=== PATIENT | female | born 1965 | race Caucasian/White ===

== ENCOUNTER → 2017-01-07 | Outpatient (CLI) | payer OTHER ==
[~2017-01-07] MED LIST: ALBU0.632 IH; ALBU17AE3 PO; ALBU2.5V4 IH; APIX5TAB PO; BECL8.7A7 IH; BUDE10.22 IH; CETI10CA PO; CPR500T PO; DILT180C67 PO; DILT180C84 PO; DPAS20025 PO; EPIN0.3P3 IM; FLT05NA16 NSEACH; FLUO20CA42 PO; FLUT12AE4 PO; FLUT1DIS27 IH; HCT25T PO; IPR14IN IH; LOSA25TA21 PO; METH5TAB5 PO; METO-272 PO; METR500T PO; MNTL10T PO; OLME20TA5 PO; ONDA-42 PO; RT-ALBUINH IH; TIOT18CA IH
--- NOTE | 2017-01-07 15:38 | Diagnostic Imaging Report ---
PA and lateral views of the chest. INDICATION: Cough. FINDINGS: The lungs appear clear. The heart size is normal. No effusion or pneumothorax. The mediastinum and christiano appear unremarkable. IMPRESSION: Unremarkable exam. Dictated by: Dictated on workstation # [id number]
== END ==
LOC: RAD 15:07
PROVIDERS: ATTEND Nurse Practitioner Family
DX: R05 Cough (principal)
CPT/HCPCS: 71020

== ENCOUNTER → 2017-01-13 | Outpatient (CLI) | payer OTHER | LOC: RAD 11:59 | PROVIDERS: ATTEND Internal Medicine Cardiovascular Disease | DX: I48.0 Paroxysmal atrial fibrillation (principal); I73.9 Peripheral vascular disease, unspecified; M79.89 Other specified soft tissue disorders | CPT/HCPCS: 93923 ==

== ENCOUNTER → 2017-03-09 | Outpatient (CLI) | payer OTHER ==
--- NOTE | 2017-03-09 13:51 | Diagnostic Imaging Report ---
PROCEDURE: US Thyroid. TECHNIQUE: Multiple real-time grayscale images were obtained of the thyroid in various projections. INDICATION: Thyroid nodules. COMPARISON: 02/13/2016. FINDINGS: Right thyroid lobe 5.5 x 3.1 x 3.6 cm, not substantially changed. The right lobe is diffusely heterogeneous with a discrete mass measuring 3.3 cm x 2.5 cm that is midpole laterally, unchanged. The left lobe is enlarged and heterogeneous measuring 6.4 x 3.3 x 3.2 cm and is not significantly changed. It is diffusely heterogeneous with a dominant solid mass heterogeneous in its lower pole, measuring 2.7 x 2.5 cm also not significantly changed. IMPRESSION: Dominant bilateral thyroid masses unchanged from prior and diffuse heterogeneous thyromegaly also sonographically unchanged. Dictated by: Dictated on workstation # [id number]
== END ==
LOC: RAD 10:15
PROVIDERS: ATTEND Nurse Practitioner Family
DX: E07.9 Disorder of thyroid, unspecified (principal); E01.0 Iodine-deficiency related diffuse (endemic) goiter
CPT/HCPCS: 76536

== ENCOUNTER → 2017-06-23 | Outpatient (CLI) | payer OTHER | LOC: RAD 15:53 | PROVIDERS: ATTEND Nurse Practitioner Family | DX: J32.9 Chronic sinusitis, unspecified (principal); J33.9 Nasal polyp, unspecified | CPT/HCPCS: 70486 ==

== ENCOUNTER → 2017-10-29 | Outpatient (CLI) | payer BC ==
[~2017-10-29] MED LIST changes: -METO-272 PO; +METO-370 PO
[2017-10-29 11:03] LABS: BASOPHILS % (AUTO) 0 % (0-10); EOSINOPHILS # (AUTO) 0.2 10^3/uL (0.0-0.3); EOSINOPHILS % (AUTO) 1 % (0-10); HEMATOCRIT 45 % (35-52); LYMPHOCYTES # (AUTO) 1.5 X 10^3 (1.0-4.0); LYMPHOCYTES % (AUTO) 11 % (12-44); MEAN CORPUSCULAR HEMOGLOBIN 27 PG (25-34); MEAN CORPUSCULAR HGB CONC 34 G/DL (32-36); MEAN CORPUSCULAR VOLUME 82 FL (80-99); MONOCYTES # (AUTO) 0.7 X 10^3 (0.0-1.0); MONOCYTES % (AUTO) 5 % (0-12); NEUTROPHILS # (AUTO) 11.7 X 10^3 (1.8-7.8); NEUTROPHILS % (AUTO) 83 % (42-75); PLATELET COUNT 264 10^3/uL (130-400); RED BLOOD COUNT 5.47 10^6/uL (4.35-5.85); WHITE BLOOD COUNT 14.1 10^3/uL (4.3-11.0)
[2017-10-29 11:23] LABS: BAND NEUTROPHILS 1 %; BASOPHILS % (MANUAL) 1 %; EOSINOPHILS % (MANUAL) 0 %; LYMPHOCYTES % (MANUAL) 10 %; MONOCYTES % (MANUAL) 2 %; NEUTROPHILS % (MANUAL) 86 %; RBC MORPH NORMAL
--- NOTE | 2017-10-29 12:26 | Diagnostic Imaging Report ---
INDICATION: Asthma, cough. COMPARISON: 07/26/2017 FINDINGS: Frontal and lateral views of the chest demonstrate clear lungs bilaterally. The heart is normal. There is no pneumothorax. No hyperinflation. Osseous structures are age-appropriate. IMPRESSION: Negative chest. Dictated by: Dictated on workstation # [id number]
== END ==
LOC: LAB 10:46
PROVIDERS: ATTEND Nurse Practitioner Family
DX: J45.909 Unspecified asthma, uncomplicated (principal); R06.00 Dyspnea, unspecified; R09.02 Hypoxemia
CPT/HCPCS: 36415; 71046; 82785; 85007; 85027

== ENCOUNTER 2018-02-15 13:38 | Emergency (ER) | payer BC ==
[~2018-02-15] VITALS: Ht 172.7 cm; Wt 90.7 kg
--- OUTSIDE RECORDS SUMMARY | 2018-02-15 13:44 | XMS REPORT | Encounter Summary ---
Author Author [facility] Organization [facility] Address Unknown Phone Unavailable Care Team Providers Care Associate Software Application Engineer Name Role Phone Gopi Julian MD Unavailable Unavailable Artie Vela MD Unavailable Raysa Horton MD Unavailable London Bullard NP PCP Reason for Visit * Radiology Services Status Reason Specialty Diagnoses / Referred By Referred To Procedures Contact Contact No Auth Needed Radiology Diagnoses Dannie, [facility] Hyperthyroidism MD Renetta [address] [place], [place] THYROID [place] [address] [id number] [address] [place], [place] Phone: [phone] Phone: Encounter Details Date Type Department Care Team Description 02/02/2018 Hospital [facility] Renetta Pandey MD Encounter Hospital Radiology [address] [place] [address] [place], [place] [id number] Social History Tobacco Use Types Packs/Day Years Used Date Former Smoker Cigarettes 0.4 1 09/21/2008 - 10/10/2009 Smokeless Tobacco: Never Used Comments: smoked on/off for 2 years between ages [age]. Alcohol Use Drinks/Week oz/Week Comments Yes 1 Standard 0.5 socially drinks or equivalent Sex Assigned at Date Recorded Not on file as of this encounter Medications at Time of Discharge Medication Sig. Disp. Refills Start Date End Date albuterol (VENTOLIN HFA, Inhale 2 Puffs by mouth 1 Inhaler 2 2013 PROAIR HFA) 90 every 6 hours as needed. mcg/actuation inhaler Need appt for additional refills apixaban (ELIQUIS) 5 mg Take 5 mg by mouth twice tablet daily. beclomethasone(+) (QVAR) Inhale 1 Puff by mouth 1 Inhaler 11 2013 40 mcg/actuation aero twice daily. inhalerIndications: Severe persistent asthma cetirizine (ZYRTEC) 10 mg Take 10 mg by mouth tablet daily. diltiazem CD (CARTIA XT) Take 180 mg by mouth 180 mg capsule daily. epinephrine(+) (EPIPEN) 1 Inject 0.3 mg to area(s) mg/mL injection pen as directed once as needed. fluoxetine (PROZAC) 20 mg Take 20 mg by mouth capsule daily. fluticasone (FLONASE) 50 Apply 2 Sprays to each mcg/actuation nasal spray nostril as directed daily. fluticasone-salmeterol Inhale 1 Puff by mouth 3 Inhaler 3 02/08/2013 (ADVAIR DISKUS) 500-50 every 12 hours. mcg inhalation diskIndications: Asthma ipratropium bromide Inhale 2 puffs by mouth (ATROVENT HFA) 17 into the lungs every 12 mcg/actuation inhaler hours. meloxicam (MOBIC) 7.5 mg Take 7.5 mg by mouth tablet daily. metoprolol XL (TOPROL XL) Take 100 mg by mouth 100 mg extended release daily. tablet montelukast (SINGULAIR) Take 1 Tab by mouth at 90 Tab 3 06/06/2015 10 mg tabletIndications: bedtime daily. Severe persistent asthma, with acute exacerbation, Asthma exacerbation other medication 1 Dose. Medication Name & Strength: Prevage Dose(how many): 1 tab Frequency(how often): daily as of this encounter Plan of Treatment Not on fileas of this encounter Visit Diagnoses Not on filein this encounter Administered Medications Medication Order MAR Action Action Date Dose Rate Site RP DX Tc-99m pertechnetate injection 10 Given 02/02/2018 9.7 millicurie 10:19 CDT millicuries 10 millicurie, Intravenous, ONCE, 1 dose, 02/02/18 at 1030 in this encounter
--- OUTSIDE RECORDS SUMMARY | 2018-02-15 13:44 | XMS REPORT | Encounter Summary ---
Author Author [facility] Organization [facility] Address Unknown Phone Unavailable Care Team Providers Care Director Pediatric Name Role Phone Gopi Julian MD Unavailable Unavailable Artie Vela MD Unavailable Raysa Horton MD Unavailable London Bullard NP PCP Reason for Referral * Radiology Services Status Reason Specialty Diagnoses / Referred By Referred To Procedures Contact Contact No Auth Needed Radiology Diagnoses Dannie, 2 Nuclear Med Hyperthyroidism MD Renetta [address] [facility] [address] [place] [place] THYROID MS [id number] [place], [place] Phone: [phone] Phone: Reason for Visit * Reason Comments Thyroid Problem * Consult, Test & Treat (Routine) Status Reason Specialty Diagnoses / Referred By Referred To Procedures Contact Contact Pending Review Endocrinology, Diagnoses Juan Miguel [facility] Endo Metabolism & Hyperthyroidism REYNA Callahan Endocrinology Genetics [address], [place] Bldg 5th Fl Pod A [address] [address] [facility] Phone: [place], [place] [phone] Fax: Encounter Details Date Type Department Care Team Description 01/22/2018 Office Visit [facility] Renetta Pandey MD Hyperthyroidism (Primary Physicians - Internal [address] Dx); Medicine MS 2023 Multinodular goiter; [place] [address] Thyroid nodule, hot; Medical Office Bldg 5th [phone] Thyroid nodule, cold; Fl Pod A Atrial fibrillation, [address] unspecified type (HCC) [place] [address] Social History Tobacco Use Types Packs/Day Years Used Date Former Smoker Cigarettes 0.4 1 09/21/2008 - 10/10/2009 Smokeless Tobacco: Never Used Tobacco Cessation: Counseling Given: No Comments: smoked on/off for 2 years between ages [age]. Alcohol Use Drinks/Week oz/Week Comments Yes 1 Standard 0.5 socially drinks or equivalent Sex Assigned at Date Recorded Not on file as of this encounter Last Filed Vital Signs Vital Sign Reading Time Taken Blood Pressure - - Pulse - - Temperature - - Respiratory Rate - - Oxygen Saturation - - Inhaled Oxygen - - Concentration Weight 89.2 kg (196 lb 9.6 oz) 01/22/2018 9:23 AM CDT Height 160.1 cm (5' 3.03") 01/22/2018 9:23 AM CDT Body Mass Index 34.79 01/22/2018 9:23 AM CDT in this encounter Progress Notes * Renetta Pandey MD - 01/22/2018 9:00 AM CDT Formatting of this note may be different from the original. Date of Service: 01/22/2018 Subjective: Brittanie Ward is a 52 y.o. female. History of Present Illness Ms. Wadr is a 52 yo female who is referred to endocrinology for hyperthyroidism. Referral is placed by London Castillo APRN, of [facility] in [facility]. She has a pmhx of hyperthyroidism, hypertension, asthma, TIA, OA of the hips, chronic dermatitis, and hyperthyroidism complicated by Afib/RVR. Patient no-showed on 10/13/17 and 10/23/17. Outside records were received and reviewed. Summarized below, but briefly: Per review of records, it seems that hyperthyroidism and MNG first noted in 2010. Multinodular goiter on ultrasound, and possible hot nodule in the right upper lobe. Cold nodule in right lower lobe FNA April 2011 of right thyroid nodule was nondiagnostic. Although no atypia was noted, there was insufficient epithelial component oncology to render an adequate diagnosis. She was seen in the ED in 02/2016 for A fib and started on Methimazole. She was seeing Dr. Galloway for endocrinology, but not since August 2016. There was concern regarding stopping MMI for uptake and scan given her A fib history. She was on methimazole 20 mg daily, but that medication made her very tired. It caused such a problem that she stopped taking it around Fall 2016. She then developed A fib and RVR in Jul 2017 and was sent to the ED. TSH was 0.00 and FT4 1.7 (upper limits of normal). Cardizem was increased. Her daughter is hyperthyroid, age 37. She is about to have PERES for hyperthyroidism. Right now, she is feeling well. She is on cardizem and metoprolol, as well as Eliquis for A fib management. She has a goiter - has had it for years. It has been growing, and it gets a little bigger, she thinks. She gets ultrasounds on it. She has known thyroid nodules. She has had a thyroid bx on a nodule a few years ago and it was inconclusive ([facility]). No heart palpitations. Weight is up and down. Lately, it has changed where she is losing weight and "eating like a pig." She has tremors. She sleeps well. She has some constipation at times. No loose stools. She has sensitivity to both hot and cold. Yesterday, she was extremely hot. Other days she will be freezing and get a heater at her office desk. She assumed menopause. Her LMP was at least a year ago, but will get some spotting with prednisone taper. Last pap smear with last baby in 2002. She does not like to do them. She thinks her vision has decreased, but more foggy than anything. No diplopia. No exophthalmos. Sometimes has gritty sensation in eyes - believes its allergies. She does have some dysphasia and neck stiffness. She denies change in voice. No dyspnea. Past Medical History: Diagnosis Date A-fib (HCC) Arrhythmia A fib Arthritis of hip Asthma Cardiovascular disease 1993 Chronic bronchitis COPD (chronic obstructive pulmonary disease) (HCC) Coronary artery disease 2012 Depression History of TIAs Hypertension Hyperthyroidism, subclinical 05/2010 Myocardial infarction (HCC) 1994 Osteoarthritis Pneumonia recurrent Pre-diabetes 05/2010 A1c=6.1% PTSD (post-traumatic stress disorder) Right wrist effusion Rosacea Seasonal allergic reaction Stroke syndrome ([facility]) 1999 TIA (transient ischemic attack) Unspecified sinusitis (chronic) Uterine prolapse Uterine prolapse Vitamin D deficiency 12/2010 Past Surgical History: Procedure Laterality Date BREAST SURGERY 2002 lift TUBAL LIGATION 2003 SINUS SURGERY Bilateral 07/20/2017 ENDOSCOPIC SINUS SURGERY WITH TOTAL ETHMOIDECTOMY performed by Nabeel Aguirre MD at [facility] SINUS ENDOSCOPY Bilateral 07/20/2017 ENDOSCOPIC SINUS SURGERY WITH MAXILLARY ANTROSTOMY performed by Nabeel Aguirre MD at [facility] SINUS SURGERY Bilateral 07/20/2017 ENDOSCOPIC SINUS SURGERY WITH SPHENOIDECTOMY performed by Nabeel Aguirre MD at [facility] SINUS SURGERY Bilateral 07/20/2017 FRONTAL SINUS TISSUE EXCISION performed by Nabeel Aguirre MD at [facility] SINUS SURGERY N/A 07/20/2017 FUNCTIONAL ENDOSCOPY SINUS SURGERY IMAGE-GUIDED performed by Nabeel Aguirre MD at [facility] BRONCHOSCOPY SECTION 1992, 1996, 2002 SINUS SURGERY x4 SURGERY Urinary Tract - Tummy Tuck Family History Problem Relation Age of Onset Asthma Father COPD Father Asthma Brother Asthma Brother Asthma Brother Hyperthyroid Daughter Blood Clots Neg Hx Cancer Neg Hx Coronary Artery Disease Neg Hx Cystic Fibrosis Neg Hx DVT Neg Hx Pulmonary Embolism Neg Hx Pulmonary Fibrosis Neg Hx Pulmonary HTN Neg Hx Social History Social History Marital status: Spouse name: N/A Number of children: N/A Years of education: N/A Occupational History Unemployed Social History Main Topics Smoking status: Former Smoker Packs/day: 0.40 Years: 1.00 Types: Cigarettes Start date: 09/21/2008 Quit date: 10/10/2009 Smokeless tobacco: Never Used Comment: smoked on/off for 2 years between ages [age]. Alcohol use 0.5 oz/week 1 Standard drinks or equivalent per week Comment: socially Drug use: No Comment: pt states she lived with a meth user but she never used any Sexual activity: Not on file Other Topics Concern Not on file Social History Narrative No narrative on file Review of Systems All other systems reviewed and are negative. Complete 14 point review of systems was performed Constitutional: Positive for night sweats, hot flashes, weight gain, fatigue Skin hair and nails: Negative Eyes: Negative eye redness, pain, foreign body sensation, diplopia. Last eye exam 3 months ago was normal. ENT: Loss of smell Mouth: Recent tooth extraction Neck: Positive for goiter and neck stiffness Pulmonary: Positive for wheezing and shortness of breath Heart: Negative for palpitations. Positive for swelling of hands and feet. Stomach: Negative Urine: Negative Genital: Positive for lack of sex drive Neuro: Positive for numbness and tingling, memory loss, weakness Psych: Positive for depression . Musculoskeletal: Positive for joint pain or stiffness, swollen joints. 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 Objective: albuterol (VENTOLIN HFA, PROAIR HFA) 90 mcg/actuation inhaler Inhale 2 Puffs by mouth every 6 hours as needed. Need appt for additional refills apixaban (ELIQUIS) 5 mg tablet Take 5 mg by mouth twice daily. beclomethasone(+) (QVAR) 40 mcg/actuation aero inhaler Inhale 1 Puff by mouth twice daily. (Patient taking differently: Inhale 2 puffs by mouth into the lungs daily.) cetirizine (ZYRTEC) 10 mg tablet Take 10 mg by mouth daily. diltiazem CD (CARTIA XT) 180 mg capsule Take 180 mg by mouth daily. epinephrine(+) (EPIPEN) 1 mg/mL injection pen Inject 0.3 mg to area(s) as directed once as needed. fluoxetine (PROZAC) 20 mg capsule Take 20 mg by mouth daily. fluticasone (FLONASE) 50 mcg/actuation nasal spray Apply 2 Sprays to each nostril as directed daily. fluticasone-salmeterol (ADVAIR DISKUS) 500-50 mcg inhalation disk Inhale 1 Puff by mouth every 12 hours. (Patient taking differently: Inhale 1 puff by mouth into the lungs daily.) ipratropium bromide (ATROVENT HFA) 17 mcg/actuation inhaler Inhale 2 puffs by mouth into the lungs every 12 hours. meloxicam (MOBIC) 7.5 mg tablet Take 7.5 mg by mouth daily. metoprolol XL (TOPROL XL) 100 mg extended release tablet Take 100 mg by mouth daily. montelukast (SINGULAIR) 10 mg tablet Take 1 Tab by mouth at bedtime daily. other medication 1 Dose. Medication Name & Strength: Prevage Dose(how many): 1 tab Frequency(how often): daily Vitals: 01/22/18 0923 BP: (P) 125/81 Pulse: (P) 58 Weight: 89.2 kg (196 lb 9.6 oz) Height: 160.1 cm (63.03") Body mass index is 34.79 kg/m. Physical Exam Constitutional: She is oriented to person, place, and time. She appears well- developed and well-nourished. HENT: Head: Normocephalic and atraumatic. Eyes: Conjunctivae and EOM are normal. Pupils are equal, round, and reactive to light. Right eye exhibits no discharge. Left eye exhibits no discharge. Neck: Normal range of motion. No tracheal deviation present. Thyromegaly ( Moderate goiter on exam, larger on left. Multiple nodules palpable.) present. Cardiovascular: Normal rate and regular rhythm. Pulmonary/Chest: Effort normal and breath sounds normal. Abdominal: Soft. Bowel sounds are normal. Musculoskeletal: Normal range of motion. She exhibits no edema. Neurological: She is alert and oriented to person, place, and time. No tremor on exam Skin: Skin is warm and dry. Psychiatric: She has a normal mood and affect. Her behavior is normal. Judgment and thought content normal. Nursing note and vitals reviewed. Outside records were received. Notes, labs, and imaging results were reviewed if available. Pertinent studies are noted below: July 2017: TSH 0.01 (low) FT4 1.7 (RR 0.8-1.8) Total T3 147 (RR 76-181) Total chol 161, LDL 97, TG 126, HDL 41 (low) CMP WNL except elevated AST 43 and ALT 76, glucose 126 (H) CBC WNL except WBC mildly elevated at 12.April: TSH 2.12 on MMI 20mg daily. November 2015: TSH 0.00 in the ED and was started on methimazole. November 2013: TSH <0.01 (low) FT4 1.4 (normal), Total T3 178 (normal) TSI 78% , normal (normal <140) February 2017: Thyroid US Findings: Right thyroid lobe 5.5 x 3.1 x 3.6 cm, not substantially changed. The right lobe is diffusely heterogeneous with a discrete mass measuring 3.3 x 2.6 cm that is midpole laterally, unchanged. Left lobe is enlarged and heterogeneous measuring 6.4 x 3.3 x 3.2 cm and is not significantly changed. It is diffusely heterogeneous with dominant solid mass heterogeneous in its lower pole, measuring 2.7 x 2.5 cm also not significantly changed. Impression: Dominant bilateral thyroid masses unchanged from prior and diffuse heterogeneous thyromegaly also cysts sonographically unchanged. January 2016: Thyroid US There are numerous nodules of various sizes throughout both thyroid lobes, some of which appear calcified. The largest nodules in the right thyroid lobe and measures 3.2 x 1.9 x 2.5 cm. The largest nodule in the left thyroid lobe inferiorly measures 2.5 x 2.2 x 2.7 cm. This nodule showed cystic and solid components. Compared to the previous study of 02/27/2012, the dominant nodule on the right side is slightly larger, the dominant nodule on the left side is unchanged. Impression: Multinodular goiter as described above, there are numerous nodules of various sizes throughout both thyroid lobes with measurements of the dominant nodules as above. The dominant nodule on the right side is slightly larger than 4 years ago, and the dominant nodule on the left side is unchanged. November 2013: Thyroid US Findings: Right thyroid lobe measures 4.5 x 3.5 x 2.9 cm. There are multiple nodules including nodules in the midpole measuring 2.05 x 1.96 x 1.54 cm, superior pole measuring 1.56 x 1.66 x 1.62 cm, and superior pole measuring 1.1 x 1.01 x 1.07 cm. Left thyroid lobe measures 5.4 x 2.4 x 2.6 cm. There are multiple nodules including midpole nodule measuring 1.22 x 1.6 at 1.47 and mixed solid cystic nodule in the inferior pole measuring 2.26 x 2.1 cm. February 2012: thyroid Uptake and Scan Persistent focal increased activity in the upper pole right thyroid lobe with relative diminished activity in the mid and lower portion of the right thyroid lobe. No new focal increased or decreased areas of uptake are identified. The foreign 24 hour thyroid uptake values are within normal limits measuring 15.2% and 29.3% respectively. Impression: Stable thyroid uptake and scan with persistent mildly increased uptake in the upper pole right lobe thyroid and void of activity in the mid and lower right lobe. Thyroid uptake at 24 hours is within normal limits at 29.3%. The findings are most likely reflect a stable multinodular thyroid goiter. January 2012: Thyroid US Largest right nodule measured 2.6 cm Largest left nodule measured 2.6 cm Noted that there is no real change from previous study done December: Thyroid US The largest nodule in the right lobe measured 2.2 cm The largest nodule in the left lobe measured 2.6 cm. With regards to the relative photopenia at the lower and lateral aspect of the right lobe of the thyroid, we find a 1.3 cm ovoid hypoechoic but solid- appearing mass. In the region of the increased uptake, right mid upper pole laterally, there are multiple masses. It is uncertain which correlates with the hot spot. Impression: Bilateral thyroid megaly with multiple bilateral thyroid masses. Cold nodule in the lower pole of the lateral right lobe correlates with a solid hypoechoic mass while the overall pattern is most suggestive of multinodular goiter, tissue sampling of this lesion is suggested given its discrete photopenia. December 2010: Thyroid uptake and scan There is asymmetric activity seen in the right thyroid gland. There is likely a hot nodule in the superior aspect and a possible cold nodule in the inferior aspect. Percent uptake at 24 hours is normal at 25%. Impression: Possible hot nodule in the superior right thyroid gland as well as voided activity in the inferior pole representing a questionable cold nodule. Recommend ultrasound. FNA April 2011 of right thyroid nodule was nondiagnostic. Although no atypia was noted, there was insufficient epithelial component oncology to render an adequate diagnosis. Assessment and Plan: Hyperthyroidism Present since 2010 Has been on methimazole in the past Complicated by several episodes of A. fib with RVR. Currently on beta- morales and calcium channel morales Daughter also with hyperthyroidism - planned PERES Clinically euthyroid on my exam. Large goiter, discussed below. Plan: Check TSH, free T4, total T3 Rule out Graves' disease, I do not see thyroid antibodies in the past. Check TSI and TRAb We will also get a thyroid uptake and scan given her history of both hot and cold nodules Discussed therapeutic options with their benefits and risks - ATD vs PERES vs Total thyroidectomy. At this time, further workup is warranted before determining which is the best approach. She has multiple nodules, and if any of those are suspicious or concerning, we may need to proceed with thyroidectomy. She also does have a moderate goiter which is starting to cause some dysphasia. Toxic multinodular goiter Hot Thyroid nodule - new problem Cold thyroid nodules - new problem Known thyroid nodules since 2010, right and left-sided Largest right nodule: December 2010=2.2 cm. --> February 2017=3.3 cm. Right Nodule FNA inconclusive 2010. Largest left nodule: December 2010=2.6 cm. --> February 2017=2.7cm. Previous uptake and scan has suggested both hot and cold nodules in the right thyroid, but last done in 2011. Outside labs and records reviewed Plan: I requested additional outside records from [facility] in [place], [place]. Those were returned to me after the visit, but at the time of this notes completion. They are reviewed and summarized above as well. We will repeat a thyroid ultrasound to better characterize her thyroid nodules as well as compare with previous. I am concerned that the right nodule specifically is growing and may need repeat FNA We will also get a thyroid uptake and scan to determine which nodules are hot versus cold. Consider FNA of cold nodules if the biopsy criteria A fib With history of RVR Currently rate controlled and in sinus rhythm Plan: Continue beta-morales and calcium channel morales. Goal heart rate is less than 90 bpm Plan of care discussed with patient and patient is agreeable. RTC 3 mo in this encounter Plan of Treatment Not on fileas of this encounter Results * NM THYROID UPTAKE SCAN (02/02/2018 11:04 AM) Specimen Performing Laboratory [facility] RAD RESULTS Impressions 1.Findings consistent with multinodular goiter with cold nodules involving the upper to mid pole of the left thyroid lobe corresponding to predominantly solid nodules on the prior thyroid ultrasound. Biopsy of the left thyroid nodules is suggested. 2.Mildly elevated 24-hour thyroid uptake of 35.6% Approved by Ayan Strong M.D. on 02/02/2018 3:27 PM By my electronic signature, I attest that I have personally reviewed the images for this examination and formulated the interpretations and opinions expressed in this report Finalized by Hernandez Monterroso M.D. on 02/02/2018 5:54 PM. Dictated by Ayan Strong M.D. on 02/02/2018 1:05 PM. Narrative THYROID UPTAKE AND SCAN (I-131 SODIUM IODIDE) CLINICAL HISTORY: Hyperthyroidism COMPARISON: Thyroid ultrasound same day RADIOPHARMACEUTICAL: 10.7 mCi oral Iodine-131 sodium iodide 9.7 mCi IV Technetium-99m pertechnetate TECHNIQUE: Oral I-131 sodium iodide was administered to the patient, and 22 hours later the thyroid uptake was calculated. Tc-99m pertechnetate was then intravenously administered to the patient. Following a 20 minute delay, multiplanar images of the thyroid were obtained. A lead marker was placed over the sternal notch prior to the acquisition of anterior projection imaging. FINDINGS: The 24-hour thyroid uptake was calculated as 35.6% (Normal range 8 - 30%) There was heterogeneous uptake of Tc-99m pertechnetate throughout the thyroid. There is a focal area of increased uptake within the upper to mid right thyroid lobe, which roughly corresponds with nodules noted on prior ultrasound. Cool lesions are seen within the upper and mid left thyroid lobe which corresponds to predominately solid lesions on the prior ultrasound. Procedure Note Interface, Radiant Results - 02/02/2018 5:57 PM CDT THYROID UPTAKE AND SCAN (I-131 SODIUM IODIDE) CLINICAL HISTORY: Hyperthyroidism COMPARISON: Thyroid ultrasound same day RADIOPHARMACEUTICAL: 10.7 mCi oral Iodine-131 sodium iodide 9.7 mCi IV Technetium-99m pertechnetate TECHNIQUE: Oral I-131 sodium iodide was administered to the patient, and 22 hours later the thyroid uptake was calculated. Tc-99m pertechnetate was then intravenously administered to the patient. Following a 20 minute delay, multiplanar images of the thyroid were obtained. A lead marker was placed over the sternal notch prior to the acquisition of anterior projection imaging. FINDINGS: The 24-hour thyroid uptake was calculated as 35.6% (Normal range 8 - 30%) There was heterogeneous uptake of Tc-99m pertechnetate throughout the thyroid. There is a focal area of increased uptake within the upper to mid right thyroid lobe, which roughly corresponds with nodules noted on prior ultrasound. Cool lesions are seen within the upper and mid left thyroid lobe which corresponds to predominately solid lesions on the prior ultrasound. IMPRESSION 1. Findings consistent with multinodular goiter with cold nodules involving the upper to mid pole of the left thyroid lobe corresponding to predominantly solid nodules on the prior thyroid ultrasound. Biopsy of the left thyroid nodules is suggested. 2. Mildly elevated 24-hour thyroid uptake of 35.6% Approved by Ayan Strong M.D. on 02/02/2018 3:27 PM By my electronic signature, I attest that I have personally reviewed the images for this examination and formulated the interpretations and opinions expressed in this report Finalized by Hernandez Monterroso M.D. on 02/02/2018 5:54 PM. Dictated by Ayan Strong M.D. on 02/02/2018 1:05 PM. * US THYROID (02/01/2018 11:27 AM) Specimen Performing Laboratory [facility] RAD RESULTS Impressions 1. Multiple large sized thyroid nodules, most of which demonstrate mild suspicion sonographic features. The largest nodule in the right lobe demonstrates moderate suspicion sonographic features. Fine-needle aspiration of the largest nodules or follow-up ultrasound in 6-12 months is recommended for further evaluation if clinically indicated. 2. Indeterminate, though normal in size, mid left neck lymph node. Approved by Jaiden Nazario M.D. on 02/01/2018 3:59 PM By my electronic signature, I attest that I have personally reviewed the images for this examination and formulated the interpretations and opinions expressed in this report Finalized by Luis Harris M.D. on 02/01/2018 6:14 PM. Dictated by Jaiden Nazario M.D. on 02/01/2018 2:22 PM. Narrative Ultrasound of the Neck Clinical Indication:Female, 52 years;multinodular goiter Technique: Multiple grayscale sonographic images were obtained of the neck with additional Color Doppler acquisitions. Comparison: None Findings: Precise measurement of the thyroid nodules is limited as many of the nodules are confluent and nodules replace most of the thyroid parenchyma. [place] [employer] nodules include: In the isthmus, there is a focal area of heterogeneity. There is a solid and echogenic nodule with a hypoechoic rim measuring 2.6 x 1.8 cm. The right lobe of the thyroid is enlarged and measures 5.2 x 3.0 x 5.1 with diffuse parenchymal heterogeneity. Multiple nodules visualized throughout the right lobe, some of which demonstrate large chunky calcifications. 2 nodules are measured in the right lobe. Nodule 1: In the lateral aspect of the right lobe measuring 2.7 x 2.3 x 3.0 cm with mixed cystic and solid, isoechoic, without internal calcifications, and with internal blood flow. Nodule 2: Mid anterior, dense angular calcifications along the periphery partially obscure internal echotexture with a maximum diameter of 1.2 cm. The left lobe of the thyroid is enlarged and measures 7.6 x 3.5 cm with parenchymal heterogeneity. Multiple nodules visualized throughout the left lobe. 3 nodules are measured. Nodule 1: Inferior, peripherally calcified with poor depiction of the internal architecture. No internal blood flow. It measures 3.0 x 2.5 x 2.3 cm. Nodule 2: Mid, isoechoic, solid, with internal blood flow. Measures 2.8 x 2.0 x 2.8 cm. Nodule 3: Superior, predominantly solid, isoechoic, with internal blood flow. Measures 2.3 x 1.8 x 2.6 cm. There is an indeterminate appearing lymph node within the mid left neck measuring 1.0 x 0.6 x 0.9 cm. There are additional reactive appearing bilateral submandibular lymph nodes. Procedure Note Interface, Radiant Results - 02/01/2018 6:17 PM CDT Ultrasound of the Neck Clinical Indication:Female, 52 years; multinodular goiter Technique: Multiple grayscale sonographic images were obtained of the neck with additional Color Doppler acquisitions. Comparison: None Findings: Precise measurement of the thyroid nodules is limited as many of the nodules are confluent and nodules replace most of the thyroid parenchyma. Arrow Point Attacher nodules include: In the isthmus, there is a focal area of heterogeneity. There is a solid and echogenic nodule with a hypoechoic rim measuring 2.6 x 1.8 cm. The right lobe of the thyroid is enlarged and measures 5.2 x 3.0 x 5.1 with diffuse parenchymal heterogeneity. Multiple nodules visualized throughout the right lobe, some of which demonstrate large chunky calcifications. 2 nodules are measured in the right lobe. Nodule 1: In the lateral aspect of the right lobe measuring 2.7 x 2.3 x 3.0 cm with mixed cystic and solid, isoechoic, without internal calcifications, and with internal blood flow. Nodule 2: Mid anterior, dense angular calcifications along the periphery partially obscure internal echotexture with a maximum diameter of 1.2 cm. The left lobe of the thyroid is enlarged and measures 7.6 x 3.5 cm with parenchymal heterogeneity. Multiple nodules visualized throughout the left lobe. 3 nodules are measured. Nodule 1: Inferior, peripherally calcified with poor depiction of the internal architecture. No internal blood flow. It measures 3.0 x 2.5 x 2.3 cm. Nodule 2: Mid, isoechoic, solid, with internal blood flow. Measures 2.8 x 2.0 x 2.8 cm. Nodule 3: Superior, predominantly solid, isoechoic, with internal blood flow. Measures 2.3 x 1.8 x 2.6 cm. There is an indeterminate appearing lymph node within the mid left neck measuring 1.0 x 0.6 x 0.9 cm. There are additional reactive appearing bilateral submandibular lymph nodes. IMPRESSION 1. Multiple large sized thyroid nodules, most of which demonstrate mild suspicion sonographic features. The largest nodule in the right lobe demonstrates moderate suspicion sonographic features. Fine-needle aspiration of the largest nodules or follow-up ultrasound in 6-12 months is recommended for further evaluation if clinically indicated. 2. Indeterminate, though normal in size, mid left neck lymph node. Approved by Jaiden Nazario M.D. on 02/01/2018 3:59 PM By my electronic signature, I attest that I have personally reviewed the images for this examination and formulated the interpretations and opinions expressed in this report Finalized by Luis Harris M.D. on 02/01/2018 6:14 PM. Dictated by Jaiden Nazario M.D. on 02/01/2018 2:22 PM. * COMPREHENSIVE METABOLIC PANEL (01/22/2018 10:48 AM) Component Value Ref Range Sodium 139 137 - 147 MMOL/L Potassium 4.0 3.5 - 5.1 MMOL/L Chloride 105 98 - 110 MMOL/L Glucose 106 (H) 70 - 100 MG/DL Blood Urea Nitrogen 13 7 - 25 MG/DL Creatinine 0.61 0.4 - 1.00 MG/DL Calcium 10.3 8.5 - 10.6 MG/DL Total Protein 7.2 6.0 - 8.0 G/DL Total Bilirubin 0.5 0.3 - 1.2 MG/DL Albumin 4.1 3.5 - 5.0 G/DL Alk Phosphatase 106 25 - 110 U/L AST (SGOT) 32 7 - 40 U/L CO2 31 (H) 21 - 30 MMOL/L ALT (SGPT) 35 7 - 56 U/L Anion Gap 3 3 - 12 eGFR Non >60 >60 mL/min Comment: The eGFR is not validated for use in drug dosing adjustments.Continue to use estimated creatinine clearance per dosing reference text.Please contact the Clinical Pharmacist for questions. eGFR >60 >60 mL/min Comment: The eGFR is not validated for use in drug dosing adjustments.Continue to use estimated creatinine clearance per dosing reference text.Please contact the Clinical Pharmacist for questions. Specimen Performing Laboratory Blood MAIN LAB [address] [place] [address] * THYROTROPIN (TSH) RECEPTOR AB (01/22/2018 10:48 AM) Component Value Ref Range TSH Receptor AB <1.00 Reference range: 0.00to1.75 Unit: IU/L ADDITIONAL INFORMATION At a decision limit of 1.75 IU/L, this assay has 97% sensitivity and 99% specificity for detection of Graves' disease. In healthy individuals and in patients with thyroid disease without diagnosis of Graves' disease, the upper limit of anti-TSHR values are 1.22 IU/L and 1.58 IU/L, respectively (97.5th percentiles). [facility] [employer], [address] [place] [address] Specimen Performing Laboratory Blood REFERENCE LAB * THYROID STIM IMMUNOGLOBULIN(TSI) (01/22/2018 10:48 AM) Component Value Ref Range TSI 1.0 Comment: Reference range: <=1.3 Unit: TSI index [facility] Specimen Performing Laboratory Blood REFERENCE LAB * TOTAL T3 (TRIIODOTHYRONINE) (01/22/2018 10:48 AM) Component Value Ref Range T3 (Total) 182 (H) 87 - 180 NG/DL Specimen Performing Laboratory Blood MAIN LAB [address] [place] [address] * FREE T4 (FREE THYROXINE) ONLY (01/22/2018 10:48 AM) Component Value Ref Range T4-Free 1.4 0.6 - 1.6 NG/DL Specimen Performing Laboratory Blood MAIN LAB [address] [place] [address] * THYROID STIMULATING HORMONE-TSH (01/22/2018 10:48 AM) Component Value Ref Range TSH <0.010 (L) 0.35 - 5.00 MCU/ML Specimen Performing Laboratory Blood MAIN LAB [address] [place] [address] in this encounter Visit Diagnoses Diagnosis Hyperthyroidism - Primary Thyrotoxicosis without mention of goiter or other cause, without mention of thyrotoxic crisis or storm Multinodular goiter Nontoxic multinodular goiter Thyroid nodule, hot Nontoxic uninodular goiter Thyroid nodule, cold Nontoxic uninodular goiter Atrial fibrillation, unspecified type (HCC)
--- OUTSIDE RECORDS SUMMARY | 2018-02-15 13:44 | XMS REPORT | Encounter Summary ---
Author Author [facility] Organization [facility] Address Unknown Phone Unavailable Care Team Providers Care Manager Electronic Name Role Phone Gopi Julian MD Unavailable Unavailable Artie Vela MD Unavailable Raysa Horton MD Unavailable London Bullard NP PCP Encounter Details Date Type Department Care Team Description 01/22/2018 [facility] JabierRenetta MD Thyrotoxicosis, Encounter [address] [place] [address] [address] [place] [address] storm [phone] Social History Tobacco Use Types Packs/Day Years [...] on fileas of this encounter Results * COMPREHENSIVE METABOLIC PANEL (01/22/2018 10:48 AM) [...] questions. Specimen Performing Laboratory Blood MAIN LAB [address] [place] [address] * THYROTROPIN (TSH) RECEPTOR AB (01/22/2018 10:48 [...] IU/L and 1.58 IU/L, respectively (97.5th percentiles). [facility] [employer], [address] [place] [address] Specimen Performing Laboratory Blood REFERENCE LAB * THYROID STIM IMMUNOGLOBULIN(TSI) (01/22/2018 10:48 AM) Component Value Ref Range TSI 1.0 Comment: Reference range: <=1.3 Unit: TSI index [facility] Specimen Performing Laboratory Blood REFERENCE LAB * TOTAL T3 (TRIIODOTHYRONINE) (01/22/2018 10:48 AM) Component Value Ref Range T3 (Total) 182 (H) 87 - 180 NG/DL Specimen Performing Laboratory Blood MAIN LAB [address] [place] [address] * FREE T4 (FREE THYROXINE) ONLY (01/22/2018 10:48 AM) Component Value Ref Range T4-Free 1.4 0.6 - 1.6 NG/DL Specimen Performing Laboratory Blood MAIN LAB [address] [place] [address] * THYROID STIMULATING HORMONE-TSH (01/22/2018 10:48 AM) Component Value Ref Range TSH <0.010 (L) 0.35 - 5.00 MCU/ML Specimen Performing Laboratory Blood [facility] MAIN LAB [address] [place] [address] in this encounter Visit Diagnoses Diagnosis Hyperthyroidism Thyrotoxicosis without mention of goiter or other cause, without mention of thyrotoxic crisis or storm Admitting Diagnoses Diagnosis Thyrotoxicosis, unspecified without thyrotoxic crisis or storm
--- OUTSIDE RECORDS SUMMARY | 2018-02-15 13:44 | XMS REPORT | Encounter Summary ---
Author Author [facility] Organization [facility] Address Unknown Phone Unavailable Care Team Providers Care Technology Teacher Name Role Phone Gopi Julian MD Unavailable Unavailable Artie Vela MD Unavailable Raysa Horton MD Unavailable ОльгаffemartaYLondon NP PCP Reason for Referral * Radiology Services Status Reason Specialty Diagnoses / Referred By Referred To Procedures Contact Contact No Auth Needed Radiology Diagnoses Jahaira Pandey Nuclear Med Hyperthyroidism MD Renetta [address] [place] [address] [place], [place] [address] [address] [place], [place] Phone: [phone] Phone: * Radiology Services Status Reason Specialty Diagnoses / Referred By Referred To Procedures Contact Contact No Auth Needed Radiology Diagnoses Jahaira Pandey Nuclear Med Hyperthyroidism MD Renetta [address] [place] [address] [place] [address] [place] Phone: [phone] Phone: Reason for Visit * Radiology Services Status Reason Specialty Diagnoses / Referred By Referred To Procedures Contact Contact No Auth Needed Radiology Diagnoses Jahaira Pandey Nuclear Med Hyperthyroidism MD Renetta [address] [place] [address] [place] [address] [place], [place] Phone: [phone] Phone: Encounter Details Date Type Department Care Team Description 02/01/2018 Hospital [facility] Renetta Pandey MD Encounter Hospital Radiology [address] [place] [address] [place] [address] [place] [address] [phone] Social History Tobacco Use Types Packs/Day Years [...] M.D. on 02/02/2018 5:54 PM. Dictated by Aayn Strong M.D. on 02/02/2018 1:05 PM. in this encounter Visit Diagnoses Diagnosis Hyperthyroidism Thyrotoxicosis without mention of goiter or other cause, without mention of thyrotoxic crisis or storm Administered Medications Medication Order MAR Action Action Date Dose Rate Site RP DX I-131 sodium iodide (micro Curie) Given 02/01/2018 10.7 oral capsule or solution 10.7 microcurie 12:30 CDT microcuries 10.7 microcurie, Oral, ONCE, 1 dose, 02/01/18 at 1230 in this encounter
--- OUTSIDE RECORDS SUMMARY | 2018-02-15 13:44 | XMS REPORT | Encounter Summary ---
Author Author [facility] Organization [facility] Address Unknown Phone Unavailable Care Team Providers Care Drum Reel Cutter Name Role Phone Gopi Julian MD Unavailable Unavailable Artie Vela MD Unavailable Raysa Horton MD Unavailable London Bullard NP PCP Encounter Details Date Type Department Care Team Description 01/22/2018 Procedure Pass [facility] Radiology [address] [place] [address] Social History Tobacco Use Types Packs/Day Years Used Date Former Smoker Cigarettes 0.4 1 09/21/2008 - 10/10/2009 Smokeless Tobacco: Never Used Comments: smoked on/off for 2 years between ages [age]. Alcohol Use Drinks/Week oz/Week Comments Yes 1 Standard 0.5 socially drinks or equivalent Sex Assigned at Date Recorded Not on file as of this encounter Plan of Treatment Not on fileas of this encounter Visit Diagnoses Not on filein this encounter
--- OUTSIDE RECORDS SUMMARY | 2018-02-15 13:44 | XMS REPORT | Clinical Summary ---
Author Author [facility] Organization [facility] Address Unknown Phone Unavailable Care Team Providers Care Chief Airline Radio Operator Name Role Phone Gopi Julian MD Unavailable Unavailable Artie Vela MD Unavailable Raysa Horton MD Unavailable London Bullard NP PCP Source Comments Some departments are not documenting in the electronic medical record. If you do not see the information that you expected, contact Release of Information in the Health Information Management department at [phone] for further assistance in locating additional records.[facility] Allergies Active Allergy Reactions Severity Noted Date Comments Sulfamethoxazole-Trimetho UNKNOWN Low 10/12/2017 prim Clindamycin HIVES Medium 10/12/2017 Penicillins RASH, URTICARIA Medium 06/21/2012 Pt has had itching with other penicillin based drugs as well (Amoxicillin she believes) Sulfa (Sulfonamide SEE COMMENTS 06/21/2012 Sores on mouth and tongue Antibiotics) Current Medications Prescription Sig. Disp. Refills Start End Date Status Date epinephrine(+) (EPIPEN) 1 Inject 0.3 mg to area(s) Active mg/mL injection pen as directed once as needed. fluticasone (FLONASE) 50 Apply 2 Sprays to each Active mcg/actuation nasal spray nostril as directed daily. cetirizine (ZYRTEC) 10 mg Take 10 mg by mouth Active tablet daily. fluticasone-salmeterol Inhale 1 Puff by mouth 3 Inhaler 3 02/09/20 Active (ADVAIR DISKUS) 500-50 every 12 hours. 13 mcg inhalation diskIndications: Asthma albuterol (VENTOLIN HFA, Inhale 2 Puffs by mouth 1 Inhaler 2 01/18/20 Active PROAIR HFA) 90 every 6 hours as needed. 14 mcg/actuation inhaler Need appt for additional refills beclomethasone(+) (QVAR) Inhale 1 Puff by mouth 1 Inhaler 11 02/16/20 Active 40 mcg/actuation aero twice daily. 14 inhalerIndications: Severe persistent asthma montelukast (SINGULAIR) Take 1 Tab by mouth at 90 Tab 3 06/06/20 Active 10 mg tabletIndications: bedtime daily. 15 Severe persistent asthma, with acute exacerbation, Asthma exacerbation diltiazem CD (CARTIA XT) Take 180 mg by mouth Active 180 mg capsule daily. metoprolol XL (TOPROL XL) Take 100 mg by mouth Active 100 mg extended release daily. tablet apixaban (ELIQUIS) 5 mg Take 5 mg by mouth twice Active tablet daily. ipratropium bromide Inhale 2 puffs by mouth Active (ATROVENT HFA) 17 into the lungs every 12 mcg/actuation inhaler hours. meloxicam (MOBIC) 7.5 mg Take 7.5 mg by mouth Active tablet daily. other medication 1 Dose. Medication Name & Active Strength: Prevage Dose(how many): 1 tab Frequency(how often): daily fluoxetine (PROZAC) 20 mg Take 20 mg by mouth Active capsule daily. other medication Medication Name & 01/23/20 Discontin Strength: Luciplex 18 ued Dose(how many): Multivitamin Frequency(how often): one by mouth daily enoxaparin (LOVENOX) 40 Inject 1 mg/kg under the 01/23/20 Discontin mg injection syringe skin twice daily. 18 ued celecoxib (CELEBREX) 200 Hold for 3 days have 90 capsule 3 07/23/20 01/23/20 Discontin mg capsule surgery 17 18 ued sinus rinse pack kit Apply 1 packet into nose 1 kit 0 07/20/2001/22 Discontin as directed twice daily. 17 18 ued sodium chloride/aloe vera Apply 1-2 sprays to each 22 mL 3 07/20/20 01/23/20 Discontin (AYR SALINE GEL) nasal nostril as directed three 17 18 ued spray times daily. HYDROcodone/acetaminophen Take 1-2 tablets by mouth 40 tablet 0 01/23/20 Discontin (NORCO) 5/325 mg tablet every 4 hours as needed 17 18 ued for pain. prednisone (DELTASONE) 10 Take 2 tabs daily for 1 21 tablet 0 01/23/20 Discontin mg tablet week, then 1 tab daily 17 18 ued for 1 week. mupirocin (BACTROBAN) 2 % MIX 1 PACKET OF SINUS 22 g 2 08/11/2001/08 Discontin topical ointment RINSE WITH 240ML OF 17 18 ued STERILE WATER; ADD PEA SIZE MUPIROCIN TO MIXTURE DIRECTED TWICE DAILY FOR 28 DAYS budesonide respule Instill 1/2 vial into 60 mL 2 08/11/20 01/23/20 Discontin (PULMICORT) 0.5 mg/2 mL each nostril twice daily 17 18 ued nebulizer solution as directed for 28 days. cefdinir (OMNICEF) 300 mg Take 300 mg by mouth 01/23/20 Discontin capsule every 12 hours. 18 ued LACTOBACILLUS ACIDOPHILUS Take by mouth. 01/23/20 Discontin (ACIDOPHILUS PO) 18 ued Active Problems Problem Noted Date Hyperthyroidism 01/22/2018 Multinodular goiter 01/22/2018 Chronic pansinusitis 06/30/2017 Overview: Added automatically from request for surgery [id number] Asthma exacerbation 06/06/2015 Severe persistent asthma 08/18/2012 Bronchitis, mucopurulent recurrent (HCC) 08/18/2012 Rhinosinusitis 08/18/2012 COPD (chronic obstructive pulmonary disease) (HCC) 06/23/2012 Encounters Date Type Specialty Care Team Description 02/02/2018 [facility] Radiology Renetta Pandey MD Encounter 02/01/2018 [facility] Radiology Renetta Pandey MD Encounter 02/01/2018 [facility] Radiology Renetta Pandey MD Encounter 01/22/2018 [facility] Lab Renetta Pandey MD Thyrotoxicosis, Encounter unspecified without thyrotoxic crisis or storm 01/22/2018 Office Visit Endocrinology, Metabolism Renetta Pandey MD Hyperthyroidism (Primary & Genetics Dx); Multinodular goiter; Thyroid nodule, hot; Thyroid nodule, cold; Atrial fibrillation, unspecified type ([facility]) 01/22/2018 Procedure Pass Radiology from Last 3 Months Family History Medical History Relation Name Comments Asthma Brother Asthma Brother Asthma Brother Hyperthyroid Daughter Asthma Father COPD Father Blood Clots Neg Hx Cancer Neg Hx Coronary Artery Disease Neg Hx Cystic Fibrosis Neg Hx DVT Neg Hx Pulmonary Embolism Neg Hx Pulmonary Fibrosis Neg Hx Pulmonary HTN Neg Hx Relation Name Status Comments Brother Brother Brother Daughter Father Mother Social History Tobacco Use Types Packs/Day Years Used Date Former Smoker Cigarettes 0.4 1 09/21/2008 - 10/10/2009 Smokeless Tobacco: Never Used Tobacco Cessation: Counseling Given: No Comments: smoked on/off for 2 years between ages [age]. Alcohol Use Drinks/Week oz/Week Comments Yes 1 Standard 0.5 socially drinks or equivalent Sex Assigned at Date Recorded Not on file Last Filed Vital Signs Vital Sign Reading Time Taken Blood Pressure 122/74 09/25/2017 11:20 AM ELECTROPHYSIOLOGY TECHNICIAN Pulse 51 09/25/2017 11:20 AM ELECTROPHYSIOLOGY TECHNICIAN Temperature 36.9 C (98.4 F) 07/20/2017 4:51 PM CDT Respiratory Rate 18 06/06/2015 3:37 PM CDT Oxygen Saturation 94% 07/20/2017 6:45 PM CDT Inhaled Oxygen - - Concentration Weight 89.2 kg (196 lb 9.6 oz) 01/22/2018 9:23 AM CDT Height 160.1 cm (5' 3.03") 01/22/2018 9:23 AM CDT Body Mass Index 34.79 01/22/2018 9:23 AM CDT Plan of Treatment Health Maintenance Due Date Last Done Comments HEPATITIS C SCREENING 1963 PHYSICAL (COMPREHENSIVE) 1970 EXAM PERTUSSIS VACCINE 1974 HIV SCREENING 1978 TETANUS VACCINE 1980 CERVICAL CANCER SCREENING 1993 BREAST CANCER SCREENING 2003 COLORECTAL CANCER 2013 SCREENING INFLUENZA VACCINE 06/21/2018 Implants Implanted Type Area Fiberglass Boat Finisher Device Expiration Model / Identifier Date Serial / Lot Implant Propel Mometasone Furoate Left: Nose INTERSECT ENT 11/25/2017 [id number] / 370 Mcg - Sna NA / Implanted: Qty: 1 on 07/20/2017 by [id number] Nabeel Aguirre MD Implant Propel Mometasone Furoate Right: INTERSECT ENT 03/23/2018 [id number] / 370 Mcg - Sna Nose NA / Implanted: Qty: 1 on 07/20/2017 by [id number] Nabeel Aguirre MD Results * [place] THYROID [place] (02/02/2018 [...] nodules replace most of the thyroid parenchyma. Pulmonary Function Technologist nodules include: In the isthmus, there is [...] nodules replace most of the thyroid parenchyma. Pulmonary Function Technologist nodules include: In the isthmus, there is [...] Nazario M.D. on 02/01/2018 2:22 PM. * THYROTROPIN (TSH) RECEPTOR AB (01/22/2018 10:48 [...] IU/L and 1.58 IU/L, respectively (97.5th percentiles). [facility], [address] [place] [address] Specimen Performing Laboratory Blood REFERENCE LAB * THYROID STIM IMMUNOGLOBULIN(TSI) (01/22/2018 10:48 AM) Component Value Ref Range TSI 1.0 Comment: Reference range: <=1.3 Unit: TSI index [facility] Specimen Performing Laboratory Blood REFERENCE LAB * TOTAL T3 (TRIIODOTHYRONINE) (01/22/2018 10:48 AM) Component Value Ref Range T3 (Total) 182 (H) 87 - 180 NG/DL Specimen Performing Laboratory Blood MAIN LAB [address] [place] [address] * THYROID STIMULATING HORMONE-TSH (01/22/2018 10:48 AM) Component Value Ref Range TSH <0.010 (L) 0.35 - 5.00 MCU/ML Specimen Performing Laboratory Blood MAIN LAB [address] [place] [address] * FREE T4 (FREE THYROXINE) ONLY (01/22/2018 10:48 AM) Component Value Ref Range T4-Free 1.4 0.6 - 1.6 NG/DL Specimen Performing Laboratory Blood MAIN LAB [address] [place] [address] * COMPREHENSIVE METABOLIC PANEL (01/22/2018 10:48 AM) [...] Pharmacist for questions. Specimen Performing Laboratory Blood [facility] MAIN LAB [address] [place] [address] [place] [address] from Last 3 Months
--- OUTSIDE RECORDS SUMMARY | 2018-02-15 13:44 | XMS REPORT | Encounter Summary ---
Author Author [facility] Organization [facility] Address Unknown Phone Unavailable Care Team Providers Care Out Of School Hours Care Worker Name Role Phone Gopi Julian MD Unavailable Unavailable Artie Vela MD Unavailable Raysa Horton MD Unavailable London Bullard NP PCP Encounter Details Date Type Department Care Team Description 02/01/2018 Hospital [facility] Renetta Pandey MD Encounter Hospital Radiology [address] [facility] [address] [place] [address] [place] [address] [phone] Social History Tobacco Use Types Packs/Day Years [...] on fileas of this encounter Results * US THYROID (02/01/2018 11:27 AM) Specimen [...] nodules replace most of the thyroid parenchyma. Mold Stamper nodules include: In the isthmus, there is [...] nodules replace most of the thyroid parenchyma. Mold Stamper nodules include: In the isthmus, there is [...] Jaiden Nazario M.D. on 02/01/2018 2:22 PM. in this encounter Visit Diagnoses Diagnosis Hyperthyroidism Thyrotoxicosis without mention of goiter or other cause, without mention of thyrotoxic crisis or storm Multinodular goiter Nontoxic multinodular goiter
--- OUTSIDE RECORDS SUMMARY | 2018-02-15 13:46 | XMS REPORT ---
Author Author NILAM DOVER [facility] Address [address] [place] [address] Care Team Providers Care Key Account Coordinator Name Role Phone NILAM DOVER Unavailable PROBLEMS Type Condition ICD9-CM Code [id number] Code Onset Dates Condition Status SNOMED Code Problem Rosacea L71.9 Active 894709865 Problem Enlarged thyroid E01.0 Active 11841622 Problem COPD exacerbation J44.1 Active 431473848 Problem Decreased hearing of left ear H91.92 Active 591981049 Problem Severe persistent asthma with exacerbation J45.51 Active 367288832 Problem Chronic sinusitis of both maxillary sinuses J32.0 Active 29308596088460222 Problem H/O breast augmentation Z98.82 Active 512819150 Problem Atelectasis J98.11 Active 29935840 Problem Chronic sinusitis, unspecified location J32.9 Active 65895554 Problem Right wrist effusion M25.431 Active 239444012 Problem Primary osteoarthritis, left ankle and foot M19.072 Active 67701267 Problem Primary osteoarthritis of right foot M19.071 Active 672469851 Problem Depressive disorder, not elsewhere classified F32.9 Active 49037013 Problem Arthritis of both hips M12.9 Active 51410129 Problem Chronic obstructive pulmonary disease, unspecified J44.9 Active 152453020 Problem Hyperthyroidism E05.90 Active 48691062 Problem Essential hypertension I10 Active 67960008 Problem Atrial fibrillation, unspecified type I48.91 Active 97380454 ALLERGIES No Information ENCOUNTERS Encounter Location Date Diagnosis [address] [id number] [id number] Dec, [address] [address] Dec, Jaw pain R68.84 [address] [id number] Dec, [id number] [id number] Dec, Chronic sinusitis, unspecified location J32.9 ; Swelling of left side of face R22.0 and Decreased hearing of left ear H91.92 [facility] [address] [id number] [id number] Nov, Dental examination Z01.[address] [place] [address] [id number] Nov, Chronic obstructive pulmonary disease, unspecified J44.9 [id number] [place] [address] [id number] Oct, Chronic obstructive pulmonary disease, unspecified J44.9 [facility] [address] [id number][place] [id number] Sep, [facility] [place] [address] [place] [address] [place] [id number][place] [id number] Sep, [facility] [place] [address] [place] [address] [place] [id number][place] [id number] Sep, Atelectasis J98.11 and Severe persistent asthma with exacerbation J45.[address] [place] [address] [id number] Sep, [id number] [place] [address] [id number] Sep, Cough R05 ; Shortness of breath R06.02 ; Low oxygen saturation R79.81 ; Wheezing R06.2 ; Decreased breath sounds at right lung base R09.89 ; Fever, unspecified fever cause R50.9 and COPD exacerbation J44.1 [facility] [address] [id number] [id number] Aug, Chronic sinusitis, unspecified location J32.9 and Acute mucoid otitis media of left ear H65.[address] [place] [address] [id number] Aug, Medial epicondylitis of left elbow M77.02 ; Chronic sinusitis of both maxillary sinuses J32.0 and History of sinus surgery Z98.[address] [id number] [id number] Jul, [address] [place] [address] [id number] Jul, [id number] [place] [address] [id number] Jul, Atrial fibrillation, unspecified type I48.91 ; Enlarged thyroid E01.0 ; Hyperthyroidism E05.90 and Pre-diabetes R73.03 [id number] [place] [address] [id number] Jul, Elevated blood sugar R73.9 [id number] [place] [address] [id number] Jul, Atrial fibrillation, unspecified type I48.91 and Hyperthyroidism E05.90 [facility] [address]00565[address] [address] Jul, Atrial fibrillation, unspecified type I48.91 and Hyperthyroidism E05.90 [address] [place] [address] [id number] Jun, Acute recurrent frontal sinusitis J01.11 [id number] [place] [address] [id number] Jun, [id number] [place] [address] [id number] May, Screening breast examination Z12.31 and H/O breast augmentation Z98.82 [id number] [place] [address] [id number] May, [id number] [place] [address] [id number] May, Nasal polyp J33.9 and Acute non-recurrent frontal sinusitis J01.10 [id number] [place] [address] [id number] May, COPD exacerbation J44.1 [address] [place] [address] [id number] Apr, [id number] [place] [address] [id number] January, Enlarged thyroid E01.0 and COPD exacerbation J44.[address] [id number] January, Chronic obstructive pulmonary disease, unspecified J44.[address] [id number] Dec, [address] [id number] Dec, [address] [id number] Dec, Cough R05 ; Shortness of breath R06.02 ; Urinary frequency R35.0 and Chronic obstructive pulmonary disease, unspecified J44.[address] [id number] Nov, Bronchitis J40 and Cough R05 [address] [id number] Aug, Screening for hyperlipidemia Z13.220 ; Pain of left hand M79.642 and Atrial fibrillation, unspecified type I48.91 [id number] [place] [address] [id number] Aug, [address] [id number] Aug, Pain of left foot M79.672 ; Pain in right foot M79.671 ; Pain of left hand M79.642 ; Pain in right hand M79.641 ; Screening for hyperlipidemia Z13.220 and Atrial fibrillation, unspecified type I48.[address] [id number] Jul, Rash R21 ; Arthritis of both hips M12.9 ; Depressive disorder, not elsewhere classified F32.9 ; Atrial fibrillation, unspecified type I48.91 ; Hyperthyroidism E05.90 and Chronic obstructive pulmonary disease, unspecified J44.9 [facility] [id number] [place] [address] Jun, [facility] [address] [address] Jun, Rosacea L71.9 [facility] [id number] [place] [address] [id number] Jun, Rosacea L71.9 and Oral herpes simplex infection B00.2 [facility] [id number] [place] [address] [id number] Jun, Rash R21 [facility] [id number] [place] [address] [id number] Jun, Asthma exacerbation J45.901 [facility] [address] [id number] Apr, [id number] [place] [address] [id number] Apr, Acute diffuse otitis externa of right ear H60.311 and Rash R21 [facility] [address] [address] Feb, Rash R21 [facility] [address] [address] Feb, [facility] [id number] [place] [address] [id number] January, Hyperthyroidism E05.90 [id number] [place] [address] [id number] January, Atrial fibrillation, unspecified type I48.91 and Hyperthyroidism E05.90 [facility] [id number] [place] [address]46 January, [facility] [id number] [place] [address] [id number] January, Atrial fibrillation, unspecified type I48.91 [id number] [place] [address] [id number] Dec, Asthma exacerbation J45.901 [facility] [id number] [place] [address] [id number] Dec, [facility] [id number] [place] [address] [id number] Oct, Acute maxillary sinusitis, recurrence not specified J01.00 and Acute cystitis with hematuria N30.01 [facility] [id number] [id number] 17 Oct, 2015 Sinusitis J32.9 [place] [id number] [place] [address] [id number] Sep, Chronic obstructive pulmonary disease, unspecified J44.9 ; Depressive disorder, not elsewhere classified F32.9 ; Arthritis of both hips M12.9 and Essential hypertension I10 [place] [address]00565[address] [id number] Sep, [facility] [address] [place] [address] [id number] Sep, [id number] [place] [address] [id number] Sep, Right hip pain M25.551 [id number] [place] [address] [id number] Sep, [place] [id number] [place] [address] [id number] Sep, [id number] [place] [address] [id number] Sep, Hemoptysis R04.2 ; Pain in right hip M25.551 and Pain in left hip M25.552 [place] [id number] [place] [address] [id number] Aug, [id number] [place] [address] [id number] Aug, Sinusitis J32.9 ; Cough R05 and Wheezing R06.2 [facility] [address]00565[address] [id number] May, [id number] [place] [address] [id number] May, [facility] [address] [place] [address] [id number] May, [address] [place] [address] [id number] Apr, Chronic airway obstruction, not elsewhere classified 496 [address], [place] [id number] Apr, [id number] [place] [address] [id number] Apr, Bronchitis, chronic obstructive, with exacerbation 491.21 [address] [place] [address] [id number] Mar, [address] [id number] Mar, Asthma, unspecified, with (acute) exacerbation 493.92 and Rhinitis 472.0 [address] [id number] [place] [address] [id number] Feb, [id number] [place] [address] [id number] Feb, [id number] [place] [address] [id number] Feb, Pituitary incidentaloma 227.3 and Abnormal MRI of the head 793.0 [id number] [place] [address] [id number] Feb, [address] [place] [address] [id number] January, Muscle weakness of lower extremity 728.87 ; Abnormal involuntary movements 781.0 ; Unspecified otitis media 382.9 and Other general symptoms 780.99 [id number] [place] [address] [id number] January, Acute sinusitis, unspecified 461.9 and Muscle weakness of lower extremity 728.87 [address] [place] [address] [id number] January, Bronchitis 490 and Cough 786.2 [facility] [address] [id number] [place] [id number] Dec, [address] [place] [address] [id number] Dec, [address] [place] [address] [id number] Dec, [facility] [id number] [place] [address]- 9858 14 Dec, 2014 [facility] [place] [facility] [address] [facility] [id number] [place] [address]- 4398 Dec, 2014 [facility] [place] [facility] [address] [facility] [id number] [place] [address]- 6320 13 Oct, 2014 [facility] [place] [facility] [address] [facility] [id number] [place] [address]- 7916 Oct, 2014 [facility] [place] [facility] [address] [facility] [id number] [place] [address]- 9931 Oct, 2014 [facility] [place] [facility] [address] [facility] [id number] [place] [address]- 4353 Oct, 2014 [facility] [place] [facility] [address] [facility] [id number] [place] [address]- 8319 Oct, 2014 [facility] [place] [facility] [address] [place] [address] [id number] [place] [address]- 8873 Oct, 2014 [facility] [place] [facility] [address] [facility] [id number] [place] [address]- 4175 Oct, 2014 [facility] [id number], [place] [id number] Oct, [facility] [address] [facility] [id number], [place] [address]- 1744 Oct, 2014 [facility] [place] [facility] [address] [facility] [id number], [place] [address]- 8586 Oct, 2014 [facility] [place] [facility] [address] [facility] [id number], [place] [address]- 1456 Oct, 2014 [facility] [id number], [place] [id number] Aug, [facility] [place] [facility] [address] [facility] [id number], [place] [address]- 2546 Aug, [facility] [id number], [place] [id number] Jul, [facility] [place] [facility] [address] [id number], [place] [address]- 5305 Jul, [facility] [place] [facility] [address] [facility] [id number], [place] [address]- 5292 Jun, [facility] [address] [facility] [id number] [place] [id number] Jun, [facility] [place] [facility] [address] [facility] [id number], [place] [address]- 5304 Jun, [facility] [address] [id number] [place] [id number] Jun, [facility] [place] [facility] [address] [facility] [id number], [place] [address]- 4020 Jun, [facility] [address] [facility] [id number][place] [id number] May, [facility] [place] [facility] [address] [facility] [id number], [place] [address]- 9344 May, [facility] [address] [facility] [id number], [place] [id number] May, [facility] [place] [facility] [address] [facility] [id number], [place] [address]- 8083 May, [facility] [address] [facility] [id number], [place] [id number] May, [facility] [place] [facility] [address] [facility] [id number], [place] [address]- 3600 May, [facility] [place] [facility] [address] [facility] [id number], [place] [address]- 8335 Mar, [facility] [place] [facility] [address] [facility] [id number], [place] [address]- 3461 Mar, [facility] [address] [facility] [id number], [place] [id number] January, [facility] [place] [facility] [address] [facility] [id number], [place] [address]- 0654 January, [facility] [address] [facility] [id number], [place] [id number] Oct, [facility] [place] [facility] [address] [facility] [id number] [place] [address]- 7140 Oct, [facility] [place] [facility] [address] [facility] [id number], [place] [address]- 1353 Jul, [facility] [place] [facility] [address] [facility] [id number] [place] [address]- 2410 Jun, [facility] [place] [facility] [address] [facility] [id number], [place] [address]- 8724 Jun, [facility] [place] [facility] [address] [facility] [id number] [place] [address]- 3988 May, [facility] [place] [facility] [address] [facility] [id number], [place] [address]- 3485 May, [facility] [place] [facility] [address]00565100[place], [place] [address]- 8114 Apr, [facility] [place] [facility] [address] [facility] [id number], [place] [address]- 1291 Apr, [facility] [place] [facility] [address] [facility] [id number], [place] [address]- 1623 Mar, [facility] [place] [facility] [address] [facility] [id number], [place] [address]- 9275 Feb, [facility] [place] [facility] [address] [facility] [id number], [place] [address]- 5665 Nov, [facility] [place] [facility] [address] [facility] [id number], [place] [address]- 2485 Oct, [facility] [place] [facility] [address] [facility] [id number], [place] [address]- 6367 Oct, [facility] [place] [facility] [address] [facility] [id number], [place] [address]- 7085 Oct, [facility] [place] [facility] [address] [facility] [id number], [place] [address]- 0696 Oct, [facility] [place] [facility] [address] [id number] [place] [address]- 2546 Oct, [facility] [place] [facility] [address] [id number] [place] [address]- 2546 Sep, [facility] [place] [facility] [address] [id number] [place] [address]- 2546 Sep, [facility] [place] [facility] [address] [id number] [place] [address]- 2546 Jul, [facility] [place] [facility] [address] [id number] [place] [address]- 2546 Jul, [facility] [place] [facility] [address] [id number] [place] [address]- 2546 May, [facility] [address] [place] [address] [id number] [place] [address]- 2546 May, [facility] [address] [id number] [place] [id number] 05 May, 2012 [facility] [address] [id number] [place] [address]- 2546 May, [facility] [place] [facility] [address] [id number] [place] [address]- 2546 May, [facility] [address] [id number] [place] [address]- 2546 May, [facility] [place] [facility] [address] [id number] [place] [address]- 2546 Apr, [facility] [place] [facility] [address] [id number] [place] [address]- 2546 Apr, [facility] [place] [facility] [address] [id number] [place] [address]- 2546 Apr, [facility] [place] [facility] [address] [id number] [place] [address]- 2546 Mar, [facility] [place] [facility] [address] [id number] [place] [address]- 2546 Mar, [facility] [address] [id number] [place] [address]- 2546 Mar, [facility] [address] [id number] [place] [address]- 2546 Mar, [facility] [address] [id number] [place] [address]- 2546 Feb, [facility] [place] [facility] [address] [id number], [place] [id number] Feb, [facility] [place] [facility] [address] [id number] [place] [address]- 2546 Feb, [facility] [place] [facility] [address] [id number], [place] [address] Feb, [facility] [place] [facility] [address] [id number] [place] [address]- 2546 Feb, [facility] [address] [id number], [place] [address]- 2546 Feb, [facility] [address] [facility] [address] [id number][place] [address] January, [facility] [address] [id number], [place] [address]- 2546 January, [facility] [place] [facility] [address] [id number], [place] 50[address] January, [facility] [place] [facility] [address] [id number], [place] [address]- 2546 January, [facility] [place] [facility] [address] [id number], [place] [address]67[address] January, [facility] [place] [facility] [address] [id number] [place] [address]- 2546 January, [facility] [place] [facility] [address] [id number] [place] [address]- 2546 January, [facility] [place] [facility] [address] [id number] [place] [address]- 2546 January, [facility] [address] [id number], [place] [address]- 1546 Dec, [facility] [place] [facility] [address] [id number] [place] [address]- 5636 Dec, [facility] [address] [facility] [id number], [place] [address]- 2586 Dec, [facility] [place] [facility] [address] [facility] [id number], [place] [address]- 9906 Dec, [facility] [address] [id number], [place] [address]- 9156 Dec, [facility] [address] [facility] [id number], [place] [id number] Dec, [facility] [address] [facility] [id number], [place] [address]- 2546 Nov, [facility] [address] [facility] [id number], [place] [address]- 2546 Nov, [facility] [address] [facility] [id number], [place] [address]- 2546 Nov, [facility] [place] [facility] [address]00565[address], [place] [address] Oct, [facility] [place] [facility] [address]00565100[place], [place] [id number] Oct, [facility] [place] [facility] [address] [id number], [place] [address]- 2546 Oct, [facility] [address] [id number], [place] 18[address]32[address] Sep, [facility] [place] [facility] [address] [id number], [place] [address]- 2546 Sep, [facility] [address] [id number], [place] 16[address] Sep, [facility] [address] [id number], [place] [address] Sep, [facility] [place] [facility] [address] [id number] [place] [address]- 2334 Aug, [facility] [address] [id number] [place] [address]- 3954 Aug, [facility] [address] [id number] [place] [address] 2546 Aug, [facility] [address] [id number] [place] [address]- 5286 Aug, [facility] [address] [id number] [place] [address] 2546 Jul, [facility] [address] [id number] [place] [address]- 8757 Jul, [facility] [address] [id number] [place] [address]- 6576 May, [facility] [address] [id number] [place] [address] January, [facility] [address] [id number] [place] [address] Dec, [facility] [address] [id number] [place] [address] Nov, [facility] [address] [id number] [place] [address] Aug, [facility] [address] [id number] [place] [address] Aug, [facility] [address] [id number] [place] [address] Aug, [facility] [address] [id number] [place] [address] Aug, [facility] [address] [id number] [place] [address] Aug, [facility] [address] [id number] [place] [address] Aug, [facility] [address] [id number] [address] Jun, [facility] [address] [facility] [id number], [place] [address] Jun, [facility] [address] [facility] [id number], [place] [address] Jun, [facility] [address] [id number], [place] [address] Jun, [facility] [address] [id number], [place] [address] Jun, [facility] [id number], [place] [address] May, 2010 [facility] [address] [id number], [place] [address] May, IMMUNIZATIONS No Known Immunizations SOCIAL HISTORY Never Assessed REASON FOR VISIT RX-Flonase refill PLAN OF CARE VITAL SIGNS MEDICATIONS Medication Instructions Dosage Frequency Start Date End Date Duration Status Flonase 50 MCG/ACT Nasally 2 times a day 1 spray in each nostril 12h May Active RESULTS No Results PROCEDURES No Known procedures INSTRUCTIONS MEDICATIONS ADMINISTERED No Known Medications MEDICAL (GENERAL) HISTORY Type Description Date Medical History hypertension Medical History asthma - severe persistent Medical History hyperthyroidism-subclinical 2009 uptake scan and US showed multiple thyroid nodules Medical History TIA Medical History osteoarthritis-hips Medical History uterine prolapse Medical History dermatitis Medical History echocardiogram 12/2010 normal EF, small PFO Medical History A-fib/RVR Surgical History sinus surgery x 4 due to polyps 1989- 2002 Surgical History breast augmentation 2004 Surgical History tubal ligation 2003 Surgical History section 1992, 1996, 2002 Surgical History tummy tuck 2002 Surgical History Sinus Surgery 2017 Hospitalization History childbirth, surgeries Hospitalization History [facility] Afib w/ RVR, HTN, COPD 01/24/16 Hospitalization History A Fib February 2016
--- OUTSIDE RECORDS SUMMARY | 2018-02-15 13:47 | XMS REPORT ---
Author Author BRITTNEY ROMERO Organization [facility] Address [address] [place] [address] Care Team Providers [facility] Attendant Name Role Phone BRITTNEY ROMERO Unavailable PROBLEMS Type Condition ICD9-CM Code [id number] Code Onset Dates Condition Status SNOMED Code Problem Essential hypertension I10 Active 34720052 Problem Arthritis of both hips M12.9 Active 85596502 Problem Depressive disorder, not elsewhere classified F32.9 Active 09363575 Problem Primary osteoarthritis of right foot M19.071 Active 895282144 Problem Right wrist effusion M25.431 Active 442773043 Problem Primary osteoarthritis, left ankle and foot M19.072 Active 25041779 Problem Chronic obstructive pulmonary disease, unspecified J44.9 Active 937894845 Problem H/O breast augmentation Z98.82 Active 733563250 Problem Enlarged thyroid E01.0 Active 27070176 Problem Hyperthyroidism E05.90 Active 89885093 Problem Atrial fibrillation, unspecified type I48.91 Active 52677927 Problem COPD exacerbation J44.1 Active 344580079 Problem Rosacea L71.9 Active 649325221 ALLERGIES No Information SOCIAL HISTORY Never Assessed PLAN OF CARE VITAL SIGNS MEDICATIONS Medication Instructions Dosage Frequency Start Date End Date Duration Status Qvar 40 mcg/act Inhalation Twice a day 1 puff 12h Mar, January, 0 days Active RESULTS No Results PROCEDURES No Known procedures IMMUNIZATIONS No Known Immunizations MEDICAL (GENERAL) HISTORY Type Description Date Medical History hypertension Medical History asthma - severe persistent Medical History hyperthyroidism-subclinical 2009 uptake scan and US showed multiple thyroid nodules Medical History TIA Medical History osteoarthritis-hips Medical History uterine prolapse Medical History chronic dermatitis Medical History echocardiogram 12/2010 normal EF, small PFO Medical History A-fib/RVR Surgical History sinus surgery x 4 due to polyps 1989- 2002 Surgical History breast augmentation 2003 Surgical History tubal ligation 2002 Surgical History section 1992, 1996, 2002 Surgical History tummy tuck 2002 Hospitalization History childbirth, surgeries Hospitalization History [facility] Afib w/ RVR, HTN, COPD 01/24/16 Hospitalization History A Fib February 2016
--- OUTSIDE RECORDS SUMMARY | 2018-02-15 13:47 | XMS REPORT ---
Author Author BRITTNEY ROMERO Organization [facility] Address [address] [place] [address] Care Team Providers Care Manager Digital Name Role Phone BRITTNEY ROMERO Unavailable PROBLEMS Type Condition ICD9-CM Code [id number] Code Onset Dates Condition Status SNOMED Code Problem Rosacea L71.9 Active 922787195 Problem Enlarged thyroid E01.0 Active 41764970 Problem COPD exacerbation J44.1 Active 374758280 Problem Decreased hearing of left ear H91.92 Active 802317185 Problem Severe persistent asthma with exacerbation J45.51 Active 297370286 Problem Chronic sinusitis of both maxillary sinuses J32.0 Active 60912689510024706 Problem H/O breast augmentation Z98.82 Active 597919172 Problem Atelectasis J98.11 Active 53923073 Problem Chronic sinusitis, unspecified location J32.9 Active 06619019 Problem Right wrist effusion M25.431 Active 852003470 Problem Primary osteoarthritis, left ankle and foot M19.072 Active 53437628 Problem Primary osteoarthritis of right foot M19.071 Active 251798074 Problem Depressive disorder, not elsewhere classified F32.9 Active 18722057 Problem Arthritis of both hips M12.9 Active 01301035 Problem Chronic obstructive pulmonary disease, unspecified J44.9 Active 602771685 Problem Hyperthyroidism E05.90 Active 65550662 Problem Essential hypertension I10 Active 54790813 Problem Atrial fibrillation, unspecified type I48.91 Active 30034451 ALLERGIES No Information ENCOUNTERS Encounter Location Date Diagnosis [place] [address] [id number] [id number] Dec, [address] [place] [address] [id number] Dec, Jaw pain R68.84 [address] [id number] Dec, [address] [id number][place] [address] Dec, Chronic sinusitis, unspecified location J32.9 ; Swelling of left side of face R22.0 and Decreased hearing of left ear H91.92 [facility] HER[facility] [address] [place] [address] [place] [id number] [id number] Nov, Dental examination Z01.[address] [place] [address] [id number] Nov, Chronic obstructive pulmonary disease, unspecified J44.[address] [place] [address] [id number] Oct, Chronic obstructive pulmonary disease, unspecified J44.[address] [id number], [place] [id number] Sep, [address] [id number], [place] [id number] Sep, [address] [id number], [place] [id number] Sep, Atelectasis J98.11 and Severe persistent asthma with exacerbation J45.[address] [place] [address] [id number] Sep, [address]65[address] [id number] Sep, Cough R05 ; Shortness of breath R06.02 ; Low oxygen saturation R79.81 ; Wheezing R06.2 ; Decreased breath sounds at right lung base R09.89 ; Fever, unspecified fever cause R50.9 and COPD exacerbation J44.[address] [id number], [place] [id number] Aug, Chronic sinusitis, unspecified location J32.9 and Acute mucoid otitis media of left ear H65.[address] [id number], [place] [address] Aug, Medial epicondylitis of left elbow M77.02 ; Chronic sinusitis of both maxillary sinuses J32.0 and History of sinus surgery Z98.890 [facility] [id number] [place] [address] [id number] Jul, [place] [id number] [place] [address] [id number] Jul, [place] [id number] [place] [address] [id number] Jul, Atrial fibrillation, unspecified type I48.91 ; Enlarged thyroid E01.0 ; Hyperthyroidism E05.90 and Pre-diabetes R73.03 [facility] [id number] [place] [address] [id number] Jul, Elevated blood sugar R73.[address] [id number] Jul, Atrial fibrillation, unspecified type I48.91 and Hyperthyroidism E05.90 [facility] [address] [id number] [address] Jul, Atrial fibrillation, unspecified type I48.91 and Hyperthyroidism E05.90 [address] [place] [address] [id number] Jun, Acute recurrent frontal sinusitis J01.11 [place] [id number] [place] [address] [id number] Jun, [place] [id number] [place] [address] [id number] May, Screening breast examination Z12.31 and H/O breast augmentation Z98.82 [place] [id number] [place] [address] [id number] May, [address] [place] [address] [id number] May, Nasal polyp J33.9 and Acute non-recurrent frontal sinusitis J01.10 [place] [id number] [place] [address] [id number] May, COPD exacerbation J44.1 [place] [id number] [place] [address] [id number] Apr, [place] [id number] [place] [address] [id number] January, Enlarged thyroid E01.0 and COPD exacerbation J44.1 [place] [id number] [place] [address] [id number] January, Chronic obstructive pulmonary disease, unspecified J44.9 [place] [id number] [place] [address] [id number] Dec, [address] [id number] Dec, [address] [id number] Dec, Cough R05 ; Shortness of breath R06.02 ; Urinary frequency R35.0 and Chronic obstructive pulmonary disease, unspecified J44.9 [place] [id number] [place] [address] [id number] Nov, Bronchitis J40 and Cough R05 [address] [id number] Aug, Screening for hyperlipidemia Z13.220 ; Pain of left hand M79.642 and Atrial fibrillation, unspecified type I48.91 [place] [id number] [place] [address] [id number] Aug, [place] [id number] [place] [address] [id number] Aug, Pain of left foot M79.672 ; Pain in right foot M79.671 ; Pain of left hand M79.642 ; Pain in right hand M79.641 ; Screening for hyperlipidemia Z13.220 and Atrial fibrillation, unspecified type I48.91 [place] [id number] [place] [address] [id number] Jul, Rash R21 ; Arthritis of both hips M12.9 ; Depressive disorder, not elsewhere classified F32.9 ; Atrial fibrillation, unspecified type I48.91 ; Hyperthyroidism E05.90 and Chronic obstructive pulmonary disease, unspecified J44.9 [facility] [id number] [place] [id number] Jun, [facility] [address] [place] [address] 48668KS [place] [address] Jun, Rosacea L71.9 [facility] [address] [place] [id number] [place] [address] [id number] Jun, Rosacea L71.9 and Oral herpes simplex infection B00.2 [facility] [address] [place] [id number] [place] [address] [id number] Jun, Rash R21 [facility] [address] [place] [id number] [place] [address] [id number] Jun, Asthma exacerbation J45.901 [facility] [address] [place] [id number] [place] [address] [id number] Apr, [facility] [address] [id number] Apr, Acute diffuse otitis externa of right ear H60.311 and Rash R21 [facility] [address] [address] Feb, Rash R21 [facility] [address] [place] [id number] [place] [address] Feb, [facility] [address] [place] [address] [id number] [place] [address] [id number] January, Hyperthyroidism E05.90 [facility] [address] [place] [address] [id number] [place] [address] [id number] January, Atrial fibrillation, unspecified type I48.91 and Hyperthyroidism E05.90 [facility] [address] [place] [address] [id number] [place] [address] 2546 January, [facility] [address] [place] [address] [id number] [place] [address] [id number] January, Atrial fibrillation, unspecified type I48.91 [facility] [address] [place] [id number] [place] [address] [id number] Dec, Asthma exacerbation J45.901 [facility] [address] [place] [id number] [place] [address] [id number] Dec, [facility] [address] [place] [id number] [place] [address] [id number] Oct, Acute maxillary sinusitis, recurrence not specified J01.00 and Acute cystitis with hematuria N30.01 [facility] [id number] [place] [address] [id number] Oct, Sinusitis J32.9 [facility] [address] [place] [id number] [place] [address] [id number] Sep, Chronic obstructive pulmonary disease, unspecified J44.9 ; Depressive disorder, not elsewhere classified F32.9 ; Arthritis of both hips M12.9 and Essential hypertension I10 [place] [address] [facility] [id number] [id number] Sep, [facility] [address] [place] [address] [id number] [place] [address] [id number] Sep, [facility] [address] [place] [id number] [place] [address] [id number] Sep, Right hip pain M25.551 [facility] [address] [place] [id number] [place] [address] [id number] Sep, [facility] [address] [place] [id number] [place] [address] [id number] Sep, [place] [address] [place] [address] [id number] [place] [address] [id number] Sep, Hemoptysis R04.2 ; Pain in right hip M25.551 and Pain in left hip M25.552 [facility] [address] [place] [id number] [place] [address] [id number] Aug, [facility] [address] [place] [address] [id number] [place] [address] [id number] Aug, Sinusitis J32.9 ; Cough R05 and Wheezing R06.2 [facility] [address] [id number] May, [facility] [id number] [place] [address] [id number] May, [facility] [id number] [place] [address] [id number] May, [facility] [address] [id number] Apr, Chronic airway obstruction, not elsewhere classified [address] [place] [address] [id number] Apr, [place] [id number] [place] [address] [id number] Apr, Bronchitis, chronic obstructive, with exacerbation 491.21 [place] [id number] [place] [address] [id number] Mar, [place] [id number] [place] [address] [id number] Mar, Asthma, unspecified, with (acute) exacerbation 493.92 and Rhinitis 472.0 [place] [id number] [place] [address] [id number] Feb, [address] [place] [address] [id number] Feb, [address] [place] [address] [id number] Feb, Pituitary incidentaloma 227.3 and Abnormal MRI of the head 793.0 [address] [place] [address] [id number] Feb, [place] [id number] [place] [address] [id number] January, Muscle weakness of lower extremity 728.87 ; Abnormal involuntary movements 781.0 ; Unspecified otitis media 382.9 and Other general symptoms 780.[address] [place] [address] [id number] January, Acute sinusitis, unspecified 461.9 and Muscle weakness of lower extremity 728.[address] [place] [address] [id number] January, Bronchitis 490 and Cough 786.2 [place] [address] [facility] [id number][place] [id number] Dec, [address] [id number][place] [id number] Dec, [address] [place] [address] [id number] Dec, [facility] [place] [facility] [address] [facility] [id number], [place] [address] 14 Dec, 2014 [facility] [place] [facility] [address] [facility] [id number] [place] [address]- 6746 Dec, [facility] [place] [facility] [address] [facility] [id number], [place] [address]- 9361 Oct, 2014 [facility] [place] [facility] [address] [facility] [id number][place] [address]- 4423 Oct, 2014 [facility] [place] [facility] [address] [facility] [id number] [place] [address]- 1159 Oct, 2014 [facility] [place] [facility] [address] [facility] [id number] [place] [address]- 6096 Oct, 2014 [facility] [place] [facility] [address] [facility] [id number], [place] [address]- 8791 Oct, 2014 [facility] [place] [facility] [address] [facility] [id number], [place] [address]- 0417 Oct, [facility] [place] [facility] [address] [facility] [id number], [place] [address]- 1332 Oct, [facility] [place] [address] [place] [id number][place] [id number] Oct, [facility] [place] [facility] [address] [place] [id number], [place] [address]- 1110 Oct, [facility] [place] [facility] [address] [facility] [id number], [place] [address]- 7608 Oct, [facility] [place] [facility] [address] [facility] [id number], [place] [address]- 2090 Oct, [facility] [address] [place] [id number], [place] [id number] Aug, [facility] [place] [facility] [address] [facility] [id number], [place] [address]- 0396 Aug, [facility] [address]00565100[place] [id number] Jul, [facility] [place] [facility] [address] [facility] [id number] [place] [address]- 9949 Jul, [facility] [place] [facility] [address] [facility] [id number], [place] [address]- 0068 Jun, [facility] [address] [facility] [id number] [place] [id number] Jun, [facility] [place] [facility] [address] [id number], [place] [address]- 5238 Jun, [facility] [address] [facility] [id number] [place] [id number] Jun, [facility] [place] [facility] [address] [facility] [id number] [place]- 6479 Jun, [facility] [address] [facility] [id number] [place] [id number] May, [facility] [place] [facility] [address] [facility] [id number], [place] [address]- 1754 May, [facility] [address] [facility] [id number], [place] [id number] May, [facility] [place] [facility] [address] [facility] [id number], [place] [address]- 0956 May, [facility] [address] [facility] [id number], [place] [id number] May, [facility] [place] [facility] [address] [facility] [id number], [place] [address]- 3589 May, [facility] [place] [facility] [address] [facility] [id number], [place] [address]- 1353 Mar, [facility] [place] [facility] [address] [facility] [id number], [place] [address]- 1021 Mar, [facility] [address] [facility] [id number] [place] [id number] January, [facility] [place] [facility] [address] [facility] [id number], [place] [address]- 3822 January, [facility] [address] [id number] [place] [id number] Oct, [facility] [address] [id number] [place] [address]- 4377 Oct, [facility] [address] [id number] [place] [address] Jul, [facility] [address] [id number] [place] [address]- 5868 Jun, [facility] [address] [id number] [place] [address]- 1382 Jun, [facility] [address] [id number] [place] [address]- 6419 May, [facility] [address] [id number] [place] [address]- 2730 May, [facility] [address] [id number] [place] [address]- 9645 Apr, [facility] [address] [id number] [place] [address]- 4263 Apr, [facility] [address] [id number] [place] [address]- 7367 Mar, [facility] [address] [id number] [place] [address]- 5623 Feb, [facility] [place] [facility] [address] [id number] [place] [address]- 7090 Nov, [facility] [address] [id number] [place] [address]- 7346 Oct, [facility] [place] [facility] [address] [id number] [place] [address]- 7746 Oct, [facility] [place] [facility] [address] [id number] [place] [address]- 8769 Oct, [facility] [place] [facility] [address] [id number] [place] [address]- 3934 Oct, [facility] [place] [facility] [address] [id number] [place] [address]- 9742 Oct, [facility] [place] [facility] [address] [id number] [place] [address]- 2546 Sep, [facility] [place] [facility] [address] [address] [id number] [address]- 2546 Sep, [facility] [place] [facility] [address] [id number] [place] [address]- 2546 Jul, [facility] [place] [facility] [address] [facility] [id number] [place] [address]- 7767 Jul, [facility] [place] [facility] [address] [place] [address] [id number] [place] [address]- 4566 May, [facility] [place] [facility] [address] [place] [address] [id number] [place] [address]- 2546 May, [facility] [address] [id number][place] [id number] 05 May, 2012 [facility] [place] [facility] [address] [place] [address] [id number] [place] [address]- 9252 May, [facility] [place] [facility] [address] [place] [address] [id number] [place] [address]- 0166 May, [facility] [place] [facility] [address] [id number], [place] [address]- 2546 May, [facility] [place] [facility] [address] [id number], [place] [address]- 2546 Apr, [facility] [place] [facility] [address] [id number] [place] [address]- 2546 Apr, [facility] [place] [facility] [address] [facility] [id number] [place] [address]- 2546 Apr, [facility] [place] [facility] [address] [facility] [id number], [place] [address]- 2546 Mar, [facility] [place] [facility] [address] [id number], [place] [address]- 2546 Mar, [facility] [place] [facility] [address] [id number], [place] [address]- 2546 Mar, [facility] [place] [facility] [address] [id number], [place] [address]- 2546 Mar, [facility] [place] [facility] [address] [id number], [place] [address]- 2546 Feb, [facility] [place] [facility] [address] [id number], [place] [id number] Feb, [facility] [place] [facility] [address] [id number], [place] [address]- 2546 Feb, [facility] [place] [facility] [address] [id number][place] [address] Feb, [facility] [place] [facility] [address] [id number], [place] [address]- 2546 Feb, [facility] [place] [facility] [address] [id number], [place] [address]- 2546 Feb, [facility] [address] [id number][place] [id number] January, [facility] [place] [facility] [address] [id number], [place] [address] 2546 January, [facility] [place] [facility] [address] [id number], [place] [address] January, [facility] [place] [facility] [address] [id number], [place] [address] 2546 January, [facility] [place] [facility] [address] [id number], [place] [id number] January, [facility] [place] [facility] [address] [id number], [place] [address]- 2546 January, [facility] [place] [facility] [address] [id number], [place] [address]- 2546 January, [facility] [place] [facility] [address] [id number], [place] [address]- 2546 January, [facility] [address] [id number], [place] [address]- 3576 Dec, [facility] [place] [facility] [address] [facility] [id number], [place] [address]- 8886 Dec, [facility] [address] [facility] [id number], [place] [address] 2546 Dec, [facility] [place] [facility] [address] [facility] [id number], [place] [address] 2546 Dec, [facility] [address] [facility] [id number], [place] [address]- 9676 Dec, [facility] [address] [facility] [id number], [place] [id number] Dec, [facility] [address]00565100[place], [place] [address] 2546 Nov, [facility] [place] [facility] [address] [id number], [place] [address]- 2546 Nov, [facility] [address]00565100[place], [place] [address] 2546 Nov, [facility] [place] [facility] [id number] [id number] Oct, [facility] [place] [facility] [id number] [id number] Oct, [facility] [place] [facility] [address] [facility] [id number], [place] [address] Oct, [facility] [address] [id number] [id number] Sep, [facility] [place] [facility] [address] [id number], [place] [address] Sep, [facility] [address] [id number] [id number] Sep, [facility] [address] [id number] [id number] Sep, [facility] [address] [id number] [place] [address] Aug, [facility] [address] [id number] [place] [address] Aug, [facility] [address] [facility] [id number] [place] [address] Aug, [facility] [address] [id number] [place] [address] Aug, [facility] [address] [id number] [place] [address] Jul, [facility] [address] [facility] [id number] [place] [address] Jul, [facility] [address] [facility] [id number] [place] [address] May, [facility] [address] [facility] [id number], [place] [address] January, [facility] [id number] [address] Dec, [facility] [address] [facility] [id number], [place] [address] Nov, [facility] [address] [facility] [id number], [place] [address] Aug, [facility] [place] [facility] [address] [id number], [place] [address] Aug, [facility] [place] [facility] [address] [facility] [id number], [place] [address] Aug, [facility] [place] [facility] [address] [facility] [id number], [place] [address] 08 Aug, 2010 [facility] [place] [facility] [address] [facility] [id number], [place] [address] Aug, [facility] [place] [facility] [address] [facility] [id number], [place] [address] Aug, [facility] [address] [id number], [place] [address] Jun, [facility] [id number], [place] [address] Jun, [facility] [id number], [place] [address] Jun, [facility] [address], [place] [address] Jun, [facility] [id number], [place] [address] Jun, [facility] [address], [place] [address] 14 May, 2010 [facility] [id number], [place] [address] 10 May, 2010 IMMUNIZATIONS No Known Immunizations SOCIAL HISTORY Never Assessed REASON FOR VISIT Waiting for call back PLAN OF CARE VITAL SIGNS MEDICATIONS Medication Instructions Dosage Frequency Start Date End Date Duration Status Azithromycin 250 MG Orally Once a day 2 tablets on the first day, then 1 tablet daily for 4 days 24h May, May, 5 day(s) Active RESULTS No Results PROCEDURES No Known [...]
--- OUTSIDE RECORDS SUMMARY | 2018-02-15 13:48 | XMS REPORT ---
Author Author BRITTNEY ROMERO Organization [facility] Address [address] [place] [address] Care Team Providers Care Social Science Teacher Name Role Phone BRITTNEY ROMERO Unavailable PROBLEMS Type Condition ICD9-CM Code [id number] Code Onset Dates Condition Status SNOMED Code Problem Essential hypertension I10 Active 59783203 Problem Arthritis of both hips M12.9 Active 92130344 Problem Depressive disorder, not elsewhere classified F32.9 Active 63393635 Problem Primary osteoarthritis of right foot M19.071 Active 920344455 Problem Right wrist effusion M25.431 Active 276082129 Problem Primary osteoarthritis, left ankle and foot M19.072 Active 46562156 Problem Chronic obstructive pulmonary disease, unspecified J44.9 Active 857223474 Problem H/O breast augmentation Z98.82 Active 511193412 Problem Enlarged thyroid E01.0 Active 79111492 Problem Hyperthyroidism E05.90 Active 64606775 Problem Atrial fibrillation, unspecified type I48.91 Active 16474023 Problem COPD exacerbation J44.1 Active 515863699 Problem Rosacea L71.9 Active 734011811 ALLERGIES Substance Reaction Event Type Date Status Sulfamethoxazole sores in mouth Drug Allergy Dec, Active Penicillin V Potassium hives Drug Allergy Dec, Active Bactrim DS Unknown Drug Allergy Dec, Active SOCIAL HISTORY Never Assessed PLAN OF CARE Activity Details Follow Up 2 Weeks Reason:Cough-COPD VITAL SIGNS Height 62 in 2017-01-05 Weight 206.6 lbs 2017-01-05 Temperature 98.1 degrees Fahrenheit 2017-01-05 Heart Rate 64 bpm 2017-01-05 Respiratory Rate 20 2017-01-05 Oximetry 96 % 2017-01-05 BMI 37.78 kg/m2 2017-01-05 Blood pressure systolic 134 mmHg 2017-01-05 Blood pressure diastolic 80 mmHg 2017-01-05 MEDICATIONS Medication Instructions Dosage Frequency Start Date End Date Duration Status EPINEPHrine 0.3 mg/0.3 mL 0.3 mg by Intramuscular route 1 time per dayPRNfor anyphylaxis Feb, Active Eliquis 5 mg Orally 2 times a day 1 tablet 12h January, Active Fluoxetine 20 mg 1 capsule Once a day orally Active Celecoxib 200 MG TAKE 1 CAPSULE DAILY 30 Active Singulair 10 mg 1 tablet by Oral route 1 time per day for 30 days Jun, Active Albuterol Sulfate 2.5 mg /3 mL (0.083 %) 1 Each by Inhalation route every 6 hours for cough and wheezePRNfor wheezing or cough Sep, Active Metoprolol Succinate ER 100 MG Orally Once a day 1 tablet 24h Active ProAir HFA 108 (90 Base) MCG/ACT INHALE 2 PUFFS NEEDED 4 TIMES A DAY Active Cardizem CD 180 MG Orally Once a day 1 capsule 24h January, Active ZyrTEC 10 mg 1 tablet by Oral route 1 time per day Dec, Active Qvar 40 mcg/actuation Inhalation Twice a day 1 puff 12h Mar, Active Flonase 50 MCG/ACT Nasally 2 times a day 1 spray in each nostril 12h May Active Promethazine-Codeine 6.25-10 MG/5ML Orally every 8 hrs 5-10 ml as needed 8h Dec, Dec, 07 days Active Tapazole 5 mg Orally Once a day 4 tablet with food 24h Active Atrovent HFA 17 MCG/ACT Inhalation Four times a day 2 puffs 6h Active Advair Diskus 500-50 MCG/DOSE Inhalation Twice a day 1 puff 12h Oct, Active RESULTS Name Result Date Reference Range CBC 2017-01-05 WBC 14.4 3.4-10.8 RBC 4.83 3.77-5.28 Hemoglobin 13.1 11.1-15.9 Hematocrit 41.8 34.0-46.6 MCV 87 79-97 MCH 27.1 26.6-33.0 MCHC 31.3 31.5-35.7 RDW 15.5 12.3-15.4 Platelets 272 150-379 Neutrophils 83 Lymphs 11 Monocytes 5 Eos 1 Basos 0 Immature Cells Neutrophils (Absolute) 11.9 1.4-7.0 Lymphs (Absolute) 1.6 0.7-3.1 Monocytes(Absolute) 0.7 0.1-0.9 Eos (Absolute) 0.1 0.0-0.4 Baso (Absolute) 0.0 0.0-0.2 Immature Granulocytes 0 Immature Grans (Abs) 0.0 0.0-0.1 NRBC Hematology Comments: CMP 2017-01-05 Glucose, Serum 127 65-99 BUN 14 6-24 Creatinine, Serum 0.80 0.57-1.00 eGFR If NonAfricn Am 84 >59 eGFR If Africn Am 97 >59 BUN/Creatinine Ratio 18 9-23 Sodium, Serum 141 134-144 Potassium, Serum 4.3 3.5-5.2 Chloride, Serum 103 96-106 Carbon Dioxide, Total 23 18-29 Calcium, Serum 9.3 8.7-10.2 Protein, Total, Serum 6.7 6.0-8.5 Albumin, Serum 4.2 3.5-5.5 Globulin, Total 2.5 1.5-4.5 A/G Ratio 1.7 1.2-2.2 Bilirubin, Total 0.2 0.0-1.2 Alkaline Phosphatase, S 107 39-117 AST (SGOT) 30 0-40 ALT (SGPT) 43 0-32 UA LONG DIP (IN HOUSE) 2017-01-05 Lot # [id number] Exp date 08/07 Clarity clear Color yellow Odor no GLU neg PETE neg KET neg SG >=1.030 BLO neg pH 5.5 Protein 1+ URO 0.2 NIT neg SHALINI neg Lot # Exp date Chest X-ray PA and Lateral 2017-01-07 PROCEDURES Procedure Date Ordered Result Body Site MEASURE BLOOD OXYGEN LEVEL January 05, 2017 SOLUMEDROL (UP TO 125 MG) January 05, 2017 URINALYSIS, AUTO, W/O SCOPE January 05, 2017 COMPLETE CBC W/AUTO DIFF WBC January 05, 2017 THER/PROPH/DIAG INJ, SC/IM January 05, 2017 VENIPUNCT, ROUTINE* January 05, 2017 COMPREHEN METABOLIC PANEL January 05, 2017 IMMUNIZATIONS Vaccine Route Administration Date Status SOLUMEDROL (UP TO 125 MG) IM Intramuscular January 05, 2017 Administered MEDICAL (GENERAL) HISTORY Type Description Date Medical [...] History section 1992, 1996, 2002 Surgical History frankie miller 2002 Hospitalization History childbirth, surgeries Hospitalization History [facility] Afib w/ RVR, HTN, COPD 01/24/16 Hospitalization History A Fib February 2016
--- OUTSIDE RECORDS SUMMARY | 2018-02-15 13:48 | XMS REPORT ---
Author Author BRITTNEY ROMERO Organization [facility] Address [address] [place] [address] Care Team Providers Care Equipment Detailer Name Role Phone BRITTNEY ROMERO Unavailable PROBLEMS Type Condition ICD9-CM Code [id number] Code Onset Dates Condition Status SNOMED Code Problem Atrial fibrillation, unspecified type I48.91 Active 19019238 Problem COPD exacerbation J44.1 Active 220989179 Problem Rosacea L71.9 Active 909135427 Problem Atelectasis J98.11 Active 37345084 Problem Severe persistent asthma with exacerbation J45.51 Active 070107777 Problem H/O breast augmentation Z98.82 Active 482341196 Problem Enlarged thyroid E01.0 Active 83946919 Problem Chronic sinusitis, unspecified location J32.9 Active 06817797 Problem Chronic sinusitis of both maxillary sinuses J32.0 Active 07772919690347207 Problem Primary osteoarthritis of right foot M19.071 Active 596449163 Problem Right wrist effusion M25.431 Active 356638606 Problem Essential hypertension I10 Active 76033927 Problem Depressive disorder, not elsewhere classified F32.9 Active 89758108 Problem Primary osteoarthritis, left ankle and foot M19.072 Active 31521210 Problem Arthritis of both hips M12.9 Active 99371463 Problem Chronic obstructive pulmonary disease, unspecified J44.9 Active 276008532 Problem Hyperthyroidism E05.90 Active 81980886 ALLERGIES Substance Reaction Event Type Date Status Sulfamethoxazole sores in mouth Drug Allergy January, Active Penicillin V Potassium hives Drug Allergy January, Active Bactrim DS Unknown Drug Allergy January, Active ENCOUNTERS Encounter Location Date Diagnosis [address] [id number] [place], [place] [id number] Dec, [facility] [address] [id number] [place] [id number] Nov, Dental examination Z01.20 [address] [id number] Nov, Chronic obstructive pulmonary disease, unspecified J44.[address] [place] [address] [id number] Oct, Chronic obstructive pulmonary disease, unspecified J44.[address] [facility] [address] [place] [address] AVE [id number] [id number] Sep, [facility] [id number] [place] [id number] Sep, [facility] [address] [place] [address] [id number] [place] [address] [id number] Sep, Atelectasis J98.11 and Severe persistent asthma with exacerbation J45.51 [place] [id number] [place] [address] [id number] Sep, [place] [id number] [place] [address] [id number] Sep, Cough R05 ; Shortness of breath R06.02 ; Low oxygen saturation R79.81 ; Wheezing R06.2 ; Decreased breath sounds at right lung base R09.89 ; Fever, unspecified fever cause R50.9 and COPD exacerbation J44.[address] [id number] [id number] Aug, Chronic sinusitis, unspecified location J32.9 and Acute mucoid otitis media of left ear H65.112 [place] [id number] [place] [address] [id number] Aug, Medial epicondylitis of left elbow M77.02 ; Chronic sinusitis of both maxillary sinuses J32.0 and History of sinus surgery Z98.890 [address] [place] [address] [id number] Jul, [place] [id number] [place] [address] [id number] Jul, [place] [id number] [place] [address] [id number] Jul, Atrial fibrillation, unspecified type I48.91 ; Enlarged thyroid E01.0 ; Hyperthyroidism E05.90 and Pre-diabetes R73.03 [place] [id number] [place] [address] [id number] Jul, Elevated blood sugar R73.9 [place] [id number] [place] [address] [id number] Jul, Atrial fibrillation, unspecified type I48.91 and Hyperthyroidism E05.90 [facility] [address] [id number] [address] Jul, Atrial fibrillation, unspecified type I48.91 and Hyperthyroidism E05.90 [place] [id number] [place] [address] [id number] Jun, Acute recurrent frontal sinusitis J01.[address] [id number] Jun, [address] [id number] May, Screening breast examination Z12.31 and H/O breast augmentation Z98.82 [place] [id number] [place] [address] [id number] May, [address] [id number] May, Nasal polyp J33.9 and Acute non-recurrent frontal sinusitis J01.10 [place] [id number] [place] [address] [id number] May, COPD exacerbation J44.1 [place] [id number] [place] [address] [id number] Apr, [place] [id number] [place] [address] [id number] January, Enlarged thyroid E01.0 and COPD exacerbation J44.1 [place] [id number] [place] [address] [id number] January, Chronic obstructive pulmonary disease, unspecified J44.9 [place] [id number] [place] [address] [id number] Dec, [place] [id number] [place] [address] [id number] Dec, [address] [id number] Dec, Cough R05 ; Shortness of breath R06.02 ; Urinary frequency R35.0 and Chronic obstructive pulmonary disease, unspecified J44.[address] [id number] Nov, Bronchitis J40 and Cough R05 [address] [id number] Aug, Screening for hyperlipidemia Z13.220 ; Pain of left hand M79.642 and Atrial fibrillation, unspecified type I48.91 [place] [id number] [place] [address] [id number] Aug, [address] [id number] Aug, Pain of left foot M79.672 ; Pain in right foot M79.671 ; Pain of left hand M79.642 ; Pain in right hand M79.641 ; Screening for hyperlipidemia Z13.220 and Atrial fibrillation, unspecified type I48.91 [place] [id number] [place] [address] [id number] Jul, Rash R21 ; Arthritis of both hips M12.9 ; Depressive disorder, not elsewhere classified F32.9 ; Atrial fibrillation, unspecified type I48.91 ; Hyperthyroidism E05.90 and Chronic obstructive pulmonary disease, unspecified J44.9 [facility] [id number] [place] [address] Jun, [facility] [address] [id number]- 1676 Jun, Rosacea L71.9 [place] [id number] [place] [address] [id number] Jun, Rosacea L71.9 and Oral herpes simplex infection B00.2 [place] [id number] [place] [address] [id number] Jun, Rash R21 [facility] [id number] [place] [address] [id number] Jun, Asthma exacerbation J45.901 [facility] [id number] [place] [address] [id number] Apr, [facility] [id number] [place] [address] [id number] Apr, Acute diffuse otitis externa of right ear H60.311 and Rash R21 [facility] [address] [address] Feb, Rash R21 [facility] [address] [address] Feb, [facility] [id number] [place] [address] [id number] January, Hyperthyroidism E05.[address] [id number] January, Atrial fibrillation, unspecified type I48.91 and Hyperthyroidism E05.90 [facility] [id number] [place] [address] 2546 January, [place] [id number] [place] [address] [id number] January, Atrial fibrillation, unspecified type I48.91 [place] [id number] [place] [address] [id number] Dec, Asthma exacerbation J45.901 [facility] [id number] [place] [address] [id number] Dec, [facility] [id number] [place] [address] [id number] Oct, Acute maxillary sinusitis, recurrence not specified J01.00 and Acute cystitis with hematuria N30.01 [place] [id number] [place] [address] [id number] Oct, Sinusitis J32.[address] [id number] Sep, Chronic obstructive pulmonary disease, unspecified J44.9 ; Depressive disorder, not elsewhere classified F32.9 ; Arthritis of both hips M12.9 and Essential hypertension I10 [facility] [place] [address]00565[address] [id number] Sep, [facility] [id number] [place] [id number] Sep, [facility] [id number] [place] [address] [id number] Sep, Right hip pain M25.551 [facility] [id number] [place] [address] [id number] Sep, [facility] [id number] [place] [address] [id number] Sep, [facility] [id number] [place] [id number] Sep, Hemoptysis R04.2 ; Pain in right hip M25.551 and Pain in left hip M25.552 [facility] [id number] [place] [id number] Aug, [facility] [id number] [place] [address] [id number] Aug, Sinusitis J32.9 ; Cough R05 and Wheezing R06.2 [facility] [address] [place] [id number] [id number] May, [facility] [id number] [place] [address] [id number] May, [facility] [id number] [place] [id number] May, [facility] [id number] [place] [id number] Apr, Chronic airway obstruction, not elsewhere classified 496 [facility] [id number] [place] [address] [id number] Apr, [facility] [id number] [place] [id number] Apr, Bronchitis, chronic obstructive, with exacerbation 491.21 [address]00565100[place] [address] Mar, [address] [place] [address] [id number] Mar, Asthma, unspecified, with (acute) exacerbation 493.92 and Rhinitis 472.0 [address] [place] [address] [id number] Feb, [place] [id number] [place] [address] [id number] Feb, [place] [id number] [place] [address] [id number] Feb, Pituitary incidentaloma 227.3 and Abnormal MRI of the head 793.0 [place] [id number] [place] [address] [id number] Feb, [address] [place] [address] [id number] January, Muscle weakness of lower extremity 728.87 ; Abnormal involuntary movements 781.0 ; Unspecified otitis media 382.9 and Other general symptoms 780.99 [address] [place] [address] [id number] January, Acute sinusitis, unspecified 461.9 and Muscle weakness of lower extremity 728.87 [address] [place] [address] [id number] January, Bronchitis 490 and Cough 786.[address] [id number] [id number] Dec, [id number] [place] [address] [id number] Dec, [place] [id number] [place] [address] [id number] Dec, [facility] [id number] [place] [address] [id number]- 4402 Dec, [facility] [address] [place] [address] 47784497- 5447 Dec, [facility] [id number] [place] [address] 85233- 6272 Oct, 2014 [facility] [place] [facility] [address] [facility] [id number] [place] [address]- 6284 Oct, 2014 [facility] [place] [facility] [address] [facility] [id number][place] [address]- 1517 Oct, 2014 [facility] [place] [facility] [address] [facility] [id number] [place] [address]- 0639 Oct, 2014 [facility] [place] [facility] [address] [facility] [id number] [place] [address]- 4952 Oct, 2014 [facility] [address] [facility] [id number] [place] [address]- 0792 Oct, 2014 [facility] [place] [facility] [address] [facility] [id number] [place] [address]- 8563 Oct, 2014 [facility] [id number] [place] [id number] Oct, 2014 [facility] [address] [facility] [id number][place] [address]- 5205 Oct, 2014 [facility] [address] [id number], [place] [address]- 9956 Oct, 2014 [facility] [address] [facility] [id number], [place] [address]- 3989 Oct, 2014 [facility] [id number] [place] [id number] Aug, [facility] [place] [facility] [address] [facility] [id number], [place] [address] 2546 Aug, [facility] [address] [facility] [id number] [place] [id number] Jul, [facility] [place] [facility] [address] [facility] [id number][place] [address]- 4606 Jul, [facility] [place] [facility] [address] [facility] [id number] [address]- 8043 Jun, [facility] [address] [facility] [id number] [place] [id number] Jun, [facility] [place] [facility] [address] [facility] [id number], [place] [address]- 5826 Jun, [facility] [address] [facility] [id number] [place] [id number] Jun, [facility] [place] [facility] [address] [facility] [id number][place] [address]- 4176 Jun, [facility] [address] [facility] [id number] [place] [id number] May, [facility] [place] [facility] [address] [facility] [id number], [place] [address]- 4263 May, [facility] [address] [facility] [id number] [place] [id number] May, [facility] [place] [facility] [address]00565100[place], [place] [address]- 8197 May, [facility] [address] [id number] [place] [id number] May, [facility] [place] [facility] [address] [id number]- 0367 May, [facility] [place] [facility] [address]00565100[place], [place] [address]- 6392 Mar, [facility] [place] [facility] [address] [id number], [place] [address]- 4640 Mar, [facility] [address] [facility] [id number] [place] [id number] January, [facility] [place] [facility] [address] [facility] [id number], [place] [address]- 2523 January, [facility] [address] [facility] [id number] [place] 828350022 Oct, [facility] [place] [facility] [address] [facility] [id number], [place] [address]- 6136 Oct, [facility] [place] [facility] [address] [id number], [place] [address]- 1908 Jul, [facility] [place] [facility] [address] [id number] [place] [address]- 9879 Jun, [facility] [place] [facility] [address] [id number] [place] [address]- 1938 Jun, [facility] [place] [facility] [address] [id number] [place] [address]- 7330 May, [facility] [place] [facility] [address] [id number] [place] [address] 2548 May, [facility] [address] [id number] [place] [address]- 8547 Apr, [facility] [place] [facility] [address] [id number] [place] [address]- 0564 Apr, [facility] [address] [id number] [place] [address]- 1277 Mar, [facility] [place] [facility] [address] [id number] [place] [address]- 5088 Feb, [facility] [place] [facility] [address] [id number] [place] [address]- 5732 Nov, [facility] [place] [facility] [address] [id number] [place] [address]- 3596 Oct, [facility] [place] [facility] [address] [id number] [place] [address]- 8040 Oct, [facility] [place] [facility] [address] [id number], [place] [address]- 4939 Oct, [facility] [place] [facility] [address] [id number] [place] [address]- 7253 Oct, [facility] [place] [facility] [address] [id number] [place] [address]- 3891 Oct, [facility] [place] [facility] [address] [id number] [place] [address]- 7111 Sep, [facility] [place] [facility] [address] [id number] [place] [address]- 2546 Sep, [facility] [place] [facility] [address] [id number] [place] [address]- 2546 Jul, [facility] [place] [facility] [address] [id number] [place] [address]- 2546 Jul, [facility] [place] [facility] [address] [id number] [place] [address]- 2546 May, [facility] [place] [facility] [address] [id number] [place] [address]- 2546 May, [facility] [address] [facility] [id number] [place] [id number] May, [facility] [place] [facility] [address] [id number] [place] [address]- 2546 May, [facility] [place] [facility] [address] [id number] [place] [address]- 2546 May, [facility] [place] [facility] [address] [id number] [place] [address]- 2546 May, [facility] [place] [facility] [address] [id number] [place] [address]- 2971 Apr, [facility] [place] [facility] [address] [id number] [place] [address]- 2546 Apr, [facility] [place] [facility] [address] [id number] [place] [address]- 2546 Apr, [facility] [place] [facility] [address] [id number] [place] [address]- 2546 Mar, [facility] [place] [facility] [address] [id number] [place] [address]- 2546 Mar, [facility] [place] [facility] [address] [id number] [place] [address]- 2546 Mar, [facility] [place] [facility] [address] [id number] [place] [address]- 2546 Mar, [facility] [place] [facility] [address] [id number], [place] [address]- 2546 Feb, [facility] [address] [id number][place] [address]77869058 Feb, [facility] [address] [id number] [place] [address]- 2546 Feb, [facility] [address] [id number][place] [address] Feb, [facility] [address] [id number] [place] [address]- 2546 Feb, [facility] [address] [id number] [place] [address]- 2546 Feb, [facility] [address] [facility] [id number] [place] [id number] January, [facility] [address] [id number], [place] [address]- 2546 January, [facility] [address] [id number][place] [address] January, [facility] [address] [id number] [place] [address]- 5926 January, [facility] [address] [id number][place] [address] January, [facility] [address] [id number] [place] [address]- 7246 January, [facility] [address] [id number], [place] [address]- 2546 January, [facility] [address] [id number] [place] [address] 2546 January, [facility] [address] [id number] [place] [address]- 9706 Dec, [facility] [address] [id number] [place] [address]- 6516 Dec, [facility] [place] [facility] [address] [id number], [place] [address]- 9456 Dec, [facility] [address] [facility] [id number], [place] [address]- 5278 Dec, [facility] [place] [facility] [address] [facility] [id number], [place] [address]- 6076 Dec, [facility] [id number] [place] [address] Dec, [facility] [place] [facility] [address] [facility] [id number], [place] [address]- 5946 Nov, [facility] [address] [facility] [id number], [place] [address]- 1496 Nov, [facility] [address] [facility] [id number][place] [address]- 2546 Nov, [facility] [address]00565100[place], [place] [address] Oct, [facility] [address]00565100[place], [place] [address] Oct, [facility] [address]00565100[place], [place] [address]- 2546 Oct, [facility] [id number] [place] [address] Sep, [facility] [address] [facility] [id number], [place] [address]- 2546 Sep, [facility] [address] [id number] [place] [address] Sep, [facility] [address] [facility] [id number] [place] [id number] Sep, [facility] [address] [facility] [id number], [place] [address]- 7976 Aug, [facility] [place] [facility] [address] [facility] [id number], [place] [address]- 5449 Aug, [facility] [address] [facility] [id number], [place] [address] Aug, [facility] [address] [id number] [place] [address] 19 Aug, 2011 [facility] [place] [facility] [address] [id number] [place] [address] 17 Jul, 2011 [facility] [address] [facility] [id number] [place] [address] Jul, [facility] [place] [facility] [address] [id number] [place] [address] 13 May, 2011 [facility] [address] [facility] [id number] [place] [address], [place] [address] January, [facility] [place] [facility] [address] [id number] [place] [address] Dec, [facility] [address] [facility] [id number] [place] [address] Nov, [facility] [address] [id number] [place] [address] Aug, [facility] [address] [facility] [id number] [place] [address] Aug, [facility] [address] [id number] [place] [address] Aug, [facility] [address] [facility] [id number] [place] [address] 08 Aug, 2010 [facility] [place] [facility] [address] [facility] [id number], [place] [address] Aug, [facility] [place] [facility] [address] [facility] [id number] [place] [address] Aug, [facility] [place] [facility] [address] [facility] [id number] [place] [address] Jun, [facility] [place] [facility] [address] [facility] [id number] [place] [address] Jun, [facility] [place] [facility] [address] [facility] [id number], [place] [address] 13 Jun, 2010 [facility] [address] [facility] [id number], [place] [address] Jun, [facility] [address] [facility] [id number], [place] [address] Jun, [facility] [address] [facility] [id number], [place] [address] May, [facility] [address] [facility] [id number], [place] [address] 10 May, 2010 IMMUNIZATIONS No Known Immunizations SOCIAL HISTORY Never Assessed REASON FOR VISIT Cough/Congestion x's 3-4 days.Green Thick sputum Nick COBB PLAN OF CARE Activity Details Follow Up 1 Week if s/s not improving Reason:CHM COPD exac VITAL SIGNS Height 62 in 2017-02-18 Weight 205.2 lbs 2017-02-18 Temperature 98.7 degrees Fahrenheit 2017-02-18 Heart Rate 60 bpm 2017-02-18 Respiratory Rate 20 2017-02-18 Oximetry 94 % 2017-02-18 BMI 37.53 kg/m2 2017-02-18 Blood pressure systolic 132 mmHg 2017-02-18 Blood pressure diastolic 76 mmHg 2017-02-18 MEDICATIONS Medication Instructions Dosage Frequency Start Date End Date Duration Status Atrovent HFA 17 MCG/ACT Inhalation Four times a day 2 puffs 6h Active Fluoxetine 20 mg 1 capsule Once a day orally Active Singulair 10 mg 1 tablet by Oral route 1 time per day for 30 days Jun, Active ProAir HFA 108 (90 Base) MCG/ACT INHALE 2 PUFFS NEEDED 4 TIMES A DAY Active Metoprolol Succinate ER 100 MG Orally Once a day 1 tablet 24h Active Tapazole 5 mg Orally Once a day 4 tablet with food 24h Active EPINEPHrine 0.3 mg/0.3 mL 0.3 mg by Intramuscular route 1 time per dayPRNfor anyphylaxis Feb, Active Flonase 50 MCG/ACT Nasally 2 times a day 1 spray in each nostril 12h May Active Cardizem CD 180 MG Orally Once a day 1 capsule 24h January, Active Eliquis 5 mg Orally 2 times a day 1 tablet 12h January, Active Advair Diskus 500-50 MCG/DOSE Inhalation Twice a day 1 puff 12h 24 Oct, 2013 Active Celecoxib 200 MG TAKE 1 CAPSULE DAILY 30 Active ZyrTEC 10 mg 1 tablet by Oral route 1 time per day Dec, Active PredniSONE 20 mg Orally Once a day 2 tablet 24h January, Feb, 07 days Active Albuterol Sulfate 2.5 mg /3 mL (0.083 %) 1 Each by Inhalation route every 6 hours for cough and wheezePRNfor wheezing or cough Sep, Active Azithromycin 250 MG Orally Once a day 2 tablets on the first day, then 1 tablet daily for 4 days 24h January, Feb, 5 day(s) Active Fluoxetine HCl 20 MG TAKE 1 CAPSULE ONCE A DAY ORALLY 30 Active RESULTS Name Result Date Reference Range Ultrasound : Thyroid 2017-03-12 PROCEDURES Procedure Date Ordered Result Body Site MEASURE BLOOD OXYGEN LEVEL February 18, 2017 INSTRUCTIONS MEDICATIONS ADMINISTERED No Known Medications MEDICAL [...]
--- OUTSIDE RECORDS SUMMARY | 2018-02-15 13:49 | XMS REPORT ---
Author Author BRITTNEY ROMERO Organization [facility] Address [address] [place] [address] Care Team Providers Care Pr Intern Name Role Phone BRITTNEY ROMERO Unavailable PROBLEMS Type Condition ICD9-CM Code [id number] Code Onset Dates Condition Status SNOMED Code Problem Rosacea L71.9 Active 670945890 Problem Enlarged thyroid E01.0 Active 08994155 Problem COPD exacerbation J44.1 Active 757767676 Problem Decreased hearing of left ear H91.92 Active 862491592 Problem Severe persistent asthma with exacerbation J45.51 Active 069414795 Problem Chronic sinusitis of both maxillary sinuses J32.0 Active [id number] Problem H/O breast augmentation Z98.82 Active 787946123 Problem Atelectasis J98.11 Active 12019790 Problem Chronic sinusitis, unspecified location J32.9 Active 55240293 Problem Right wrist effusion M25.431 Active 954268034 Problem Primary osteoarthritis, left ankle and foot M19.072 Active 26288994 Problem Primary osteoarthritis of right foot M19.071 Active 944657477 Problem Depressive disorder, not elsewhere classified F32.9 Active 33564996 Problem Arthritis of both hips M12.9 Active 11422155 Problem Chronic obstructive pulmonary disease, unspecified J44.9 Active 035798330 Problem Hyperthyroidism E05.90 Active 30760213 Problem Essential hypertension I10 Active 97133810 Problem Atrial fibrillation, unspecified type I48.91 Active 60431405 ALLERGIES Substance Reaction Event Type Date Status Sulfamethoxazole sores in mouth Drug Allergy May, Active Penicillin V Potassium hives Drug Allergy May, Active Bactrim DS Unknown Drug Allergy May, Active ENCOUNTERS Encounter Location Date Diagnosis [facility] [address] [facility] [id number] [place] [id number] Dec, [facility] [address] [facility] [id number] [place] [id number] Dec, Jaw pain R68.84 [address] [id number] Dec, [place] [id number] [place] [address] [id number] Dec, Chronic sinusitis, unspecified location J32.9 ; Swelling of left side of face R22.0 and Decreased hearing of left ear H91.92 [facility] [address] [id number] [id number] Nov, Dental examination Z01.20 [address] [id number] Nov, Chronic obstructive pulmonary disease, unspecified J44.9 [place] [id number] [address] Oct, Chronic obstructive pulmonary disease, unspecified J44.9 [address]00565[place] [id number] Sep, [address] [id number] [address] Sep, [place] [id number] [place] [address] [id number] Sep, Atelectasis J98.11 and Severe persistent asthma with exacerbation J45.51 [address] [id number] Sep, [address] [id number] Sep, Cough R05 ; Shortness of breath R06.02 ; Low oxygen saturation R79.81 ; Wheezing R06.2 ; Decreased breath sounds at right lung base R09.89 ; Fever, unspecified fever cause R50.9 and COPD exacerbation J44.1 [facility] [address] [id number] [id number] Aug, Chronic sinusitis, unspecified location J32.9 and Acute mucoid otitis media of left ear H65.112 [place] [id number] [place] [address] [id number] Aug, Medial epicondylitis of left elbow M77.02 ; Chronic sinusitis of both maxillary sinuses J32.0 and History of sinus surgery Z98.8[address] [place] [address] [id number] Jul, [place] [id number] [place] [address] [id number] Jul, [address] [id number] Jul, Atrial fibrillation, unspecified type I48.91 ; Enlarged thyroid E01.0 ; Hyperthyroidism E05.90 and Pre-diabetes R73.03 [place] [id number] [place] [address] [id number] Jul, Elevated blood sugar R73.9 [place] [id number] [place] [address] [id number] Jul, Atrial fibrillation, unspecified type I48.91 and Hyperthyroidism E05.90 [facility] [address]00565100[place] [address] Jul, Atrial fibrillation, unspecified type I48.91 and Hyperthyroidism E05.90 [place] [id number] [place] [address] [id number] Jun, Acute recurrent frontal sinusitis J01.[address] [place] [address] [id number] Jun, [place] [id number] [place] [address] [id number] May, Screening breast examination Z12.31 and H/O breast augmentation Z98.[address] [place] [address] [id number] May, [address] [id number] May, Nasal polyp J33.9 and Acute non-recurrent frontal sinusitis J01.[address] [place] [address] [id number] May, COPD exacerbation J44.[address] [place] [address] [id number] Apr, [address] [id number] January, Enlarged thyroid E01.0 and COPD exacerbation J44.1 [place] [id number] [place] [address] [id number] January, Chronic obstructive pulmonary disease, unspecified J44.9 [place] [id number] [place] [address] [id number] Dec, [place] [id number] [place] [address] [id number] Dec, [address] [id number] Dec, Cough R05 ; Shortness of breath R06.02 ; Urinary frequency R35.0 and Chronic obstructive pulmonary disease, unspecified J44.9 [place] [id number] [place] [address] [id number] Nov, Bronchitis J40 and Cough R05 [place] [address] [place] [address] [id number] Aug, Screening for hyperlipidemia Z13.220 ; Pain of left hand M79.642 and Atrial fibrillation, unspecified type I48.91 [place] [id number] [place] [address] [id number] Aug, [place] [address] [place] [address] [id number] Aug, Pain of left foot M79.672 ; Pain in right foot M79.671 ; Pain of left hand M79.642 ; Pain in right hand M79.641 ; Screening for hyperlipidemia Z13.220 and Atrial fibrillation, unspecified type I48.91 [place] [address] [place] [address] [id number] Jul, Rash R21 ; Arthritis of both hips M12.9 ; Depressive disorder, not elsewhere classified F32.9 ; Atrial fibrillation, unspecified type I48.91 ; Hyperthyroidism E05.90 and Chronic obstructive pulmonary disease, unspecified J44.9 [facility] [id number] [place] [address]33[address]- 3516 Jun, [facility] [address] [address] Jun, Rosacea L71.9 [facility] [id number] [place] [address] [id number] Jun, Rosacea L71.9 and Oral herpes simplex infection B00.2 [facility] [address] [id number] Jun, Rash R21 [facility] [id number] [place] [address] [id number] Jun, Asthma exacerbation J45.901 [facility] [address] [id number] Apr, [facility] [id number] [place] [address] [id number] Apr, Acute diffuse otitis externa of right ear H60.311 and Rash R21 [facility] [id number] [place] [address] Feb, Rash R21 [facility] [id number] [place] [address] 245404- 9295 Feb, [facility] [id number] [place] [address] [id number] January, Hyperthyroidism E05.90 [facility] [id number] [place] [address] [id number] January, Atrial fibrillation, unspecified type I48.91 and Hyperthyroidism E05.90 [facility] [id number] [place] [address]- 3669 January, [facility] [id number] [place] [address] [id number] January, Atrial fibrillation, unspecified type I48.91 [facility] [place] [id number] [place] [address] [id number] Dec, Asthma exacerbation J45.901 [facility] [address] [place] [address] [id number] [id number] Dec, [facility] [id number] [place] [address] [id number] Oct, Acute maxillary sinusitis, recurrence not specified J01.00 and Acute cystitis with hematuria N30.01 [facility] [id number] [place] [id number] Oct, Sinusitis J32.9 [facility] [id number] [place] [address] [id number] Sep, Chronic obstructive pulmonary disease, unspecified J44.9 ; Depressive disorder, not elsewhere classified F32.9 ; Arthritis of both hips M12.9 and Essential hypertension I10 [address]00565[address] [id number] Sep, [facility] [id number] [place] [address] [id number] Sep, [facility] [id number] [place] [address] [id number] Sep, Right hip pain M25.551 [facility] [id number] [place] [address] [id number] Sep, [facility] [id number] [place] [address] [id number] Sep, [facility] [id number] [place] [address] [id number] Sep, Hemoptysis R04.2 ; Pain in right hip M25.551 and Pain in left hip M25.552 [facility] [id number] [place] [id number] Aug, [facility] [id number] [place] [id number] Aug, Sinusitis J32.9 ; Cough R05 and Wheezing R06.2 [facility] [address]00565100[place] [id number] May, [facility] [id number] [place] [address] [id number] May, [place] [address] [facility] [id number] [place] [address] May, [address] [place] [address] [id number] Apr, Chronic airway obstruction, not elsewhere classified [id number] [place] [id number] Apr, [address] [place] [address] [id number] Apr, Bronchitis, chronic obstructive, with exacerbation 491.[address] [place] [address] [id number] Mar, [address] [place] [address] [id number] Mar, Asthma, unspecified, with (acute) exacerbation 493.92 and Rhinitis 472.[address] [place] [address] [id number] Feb, [address] [place] [address] [id number] Feb, [address] [place] [address] [id number] Feb, Pituitary incidentaloma 227.3 and Abnormal MRI of the head 793.0 [address] [place] [address] [id number] Feb, [address] [place] [address] [id number] January, Muscle weakness of lower extremity 728.87 ; Abnormal involuntary movements 781.0 ; Unspecified otitis media 382.9 and Other general symptoms 780.[address] [id number] [place] [id number] January, Acute sinusitis, unspecified 461.9 and Muscle weakness of lower extremity 728.87 [address] [id number] January, Bronchitis 490 and Cough 786.[address] [id number], [place] [id number] Dec, [address] [id number] [place] [id number] 30 Dec, 2014 [facility] [address] [facility] [id number] [place] [id number] Dec, 2014 [facility] [place] [facility] [address] [facility] [id number], [place] [address]- 4[address] 14 Dec, 2014 [facility] [place] [facility] [address] [address] [id number], [place] [address]- 2097 Dec, 2014 [facility] [place] [facility] [address] [facility] [id number], [place] [address]- 6715 Oct, 2014 [facility] [place] [facility] [address] [facility] [id number] [place] [address]- 4999 Oct, 2014 [facility] [place] [facility] [address] [id number], [place] [address]- 5248 Oct, 2014 [facility] [place] [facility] [address]00565100[place], [place] [address]- 5328 Oct, 2014 [facility] [place] [facility] [address] [id number], [place] [address]- 5009 Oct, 2014 [facility] [place] [facility] [address]00565100[place], [place] [address]- 2062 Oct, 2014 [facility] [place] [facility] [address] [id number], [place] [address]- 0119 Oct, 2014 [facility] [address] [place] [id number] [place] [id number] Oct, 2014 [facility] [place] [facility] [address] [facility] [id number], [place] [address]- 9997 Oct, 2014 [facility] [place] [facility] [address] [facility] [id number], [place] [address]- 7390 Oct, 2014 [facility] [place] [facility] [address] [facility] [id number], [place] [address]- 3231 Oct, 2014 [facility] [address] [facility] [id number] [place] [id number] Aug, [facility] [place] [facility] [address] [id number], [place] [address]- 7282 Aug, [facility] [address] [facility] [id number] [place] [id number] Jul, [facility] [place] [facility] [address] [facility] [id number], [place] [address]- 7156 Jul, [facility] [place] [facility] [address] [facility] [id number][place] [address]- 6441 Jun, [facility] [address] [facility] [id number] [place] [id number] Jun, [facility] [place] [facility] [address] [facility] [id number][place] [address]- 1575 Jun, [facility] [address] [facility] [id number] [place] [id number] Jun, [facility] [place] [facility] [address] [id number], [place] [address]- 0928 Jun, [facility] [address] [facility] [id number] [place] [id number] May, [facility] [place] [facility] [address] [facility] [id number], [place] [address]- 8938 May, [facility] [address] [facility] [id number] [place] [id number] May, [facility] [place] [facility] [address] [facility] [id number][place] [address]- 5225 May, [facility] [address] [facility] [id number] [place] [id number] May, [facility] [place] [facility] [address] [facility] [id number], [place] [address]- 3358 May, [facility] [place] [facility] [address] [facility] [id number], [place] [address]- 9621 Mar, [facility] [place] [facility] [address] [facility] [id number], [place] [address]- 6945 Mar, [facility] [address] [facility] [id number] [place] [id number] January, [facility] [address] [id number] [place] [address]- 1156 January, [facility] [address] [id number] [place] [id number] Oct, [facility] [place] [facility] [address] [facility] [id number] [place] [address]- 7326 Oct, [facility] [place] [facility] [address] [id number] [place] [address]- 3903 Jul, [facility] [place] [facility] [address] [id number] [place] [address]- 7359 Jun, [facility] [place] [facility] [address] [id number] [place] [address]- 0906 Jun, [facility] [place] [facility] [address] [id number] [place] [address]- 0369 May, [facility] [place] [facility] [address] [id number], [place] [address]- 2675 May, [facility] [place] [facility] [address] [id number] [place] [address]- 9485 Apr, [facility] [place] [facility] [address] [facility] [id number], [place] [address]- 0405 Apr, [facility] [place] [facility] [address] [id number], [place] [address]- 5349 Mar, [facility] [place] [facility] [address] [id number], [place] [address]- 5339 Feb, [facility] [place] [facility] [address] [id number] [place] [address]- 6121 Nov, [facility] [place] [facility] [address] [id number], [place] [address]- 3046 Oct, [facility] [place] [facility] [address] [facility] [id number], [place] [address]- 9986 Oct, [facility] [place] [facility] [address] [id number] [place] [address]- 5705 Oct, [facility] [address] [id number] [place] [address]- 6467 Oct, [facility] [place] [facility] [address] [id number] [place] [address]- 3356 Oct, [facility] [place] [facility] [address] [id number] [place] [address]- 6193 Sep, [facility] [place] [facility] [address] [id number] [place] [address]- 6177 Sep, [facility] [address] [id number] [place] [address]- 9104 Jul, [facility] [place] [facility] [address] [id number] [place] [address]- 5579 Jul, [facility] [address] [place] [address]- 6139 May, [facility] [address] [id number] [place] [address]- 2038 06 May, [address] [facility] [address] [id number] [place] [id number] 05 May, 2012 [facility] [address] [place] [address]- 0832 May, [facility] [place] [facility] [address] [id number] [place] [address]- 5532 May, [facility] [place] [facility] [address] [id number], [place] [address]- 8135 May, [facility] [place] [facility] [address] [id number] [place] [address]- 9575 Apr, [facility] [place] [facility] [address] [id number] [place] [address]- 6196 Apr, [facility] [place] [facility] [address] [id number] [place] [address]- 7806 Apr, [facility] [place] [facility] [address] [id number] [place] [address]- 2546 Mar, [facility] [address] [id number] [place] [address] 2546 Mar, [facility] [address] [id number] [place] [address]- 2546 Mar, [facility] [address] [id number] [place] [address]- 2546 Mar, [facility] [address] [id number] [place] [address]- 2546 Feb, [facility] [place] [facility] [address] [id number] [place] 46927026[address] Feb, [facility] [address] [id number] [place] [address] 2546 Feb, [facility] [place] [facility] [address] [id number], [place] 0930425[address] Feb, [facility] [address] [id number], [place] [address]- 2546 Feb, [facility] [address] [id number] [place] [address]- 2546 Feb, [facility] [address] [facility] [address] [id number] [place] 305442284 January, [facility] [place] [facility] [address] [id number] [place] [address]- 2546 January, [facility] [place] [facility] [address] [id number], [place] 015258868 January, [facility] [place] [facility] [address] [id number] [place] [address]- 2546 January, [facility] [place] [facility] [address] [id number] [place] [id number] January, [facility] [place] [facility] [address] [id number] [place] [address]- 2546 January, [facility] [place] [facility] [address] [id number] [place] [address]- 1236 January, [facility] [address] [id number] [place] [address]- 3186 January, [facility] [place] [facility] [address] [id number] [place] [address]- 1886 Dec, [facility] [address] [id number] [place] [address]- 4806 Dec, [facility] [place] [facility] [address] [id number] [place] [address]- 9916 Dec, [facility] [address] [id number] [place] [address]- 7826 Dec, [facility] [address] [facility] [id number] [place] [address]- 9626 Dec, [facility] [id number] [place] 837[address] Dec, [facility] [address] [id number], [place] [address]- 4956 Nov, [facility] [address] [id number] [place] [address]- 7766 Nov, [facility] [address] [id number], [place] [address]- 2546 Nov, [facility] [place] [facility] [address] [address] Oct, [facility] [place] [facility] [address] [id number] [address]27[address]996 Oct, [facility] [place] [facility] [address] [id number], [place] [address]- 2546 Oct, [facility] [address] [id number] [place] [id number] Sep, [facility] [place] [facility] [address] [id number], [place] [address]- 2546 Sep, [facility] [address] [id number] [place] 539[address] Sep, [facility] [address] [id number] [place] 885887[address] Sep, [facility] [address] [facility] [id number], [place] [address]- 8536 Aug, [facility] [address] [facility] [id number] [place] [address]- 0296 Aug, [facility] [place] [facility] [address] [id number] [place] [address]- 4908 Aug, [facility] [address] [facility] [id number] [place] [address]- 5175 Aug, [facility] [address] [facility] [id number] [place] [address] Jul, [facility] [address] [id number], [place] [address] Jul, [facility] [place] [facility] [address] [facility] [id number], [place] [address] May, [facility] [address] [facility] [id number] [place] [address] January, [facility] [address] [facility] [id number] [place] [address] Dec, [facility] [place] [facility] [address] [facility] [id number], [place] [address] Nov, [facility] [place] [facility] [address] [facility] [id number], [place] [address] Aug, [facility] [place] [facility] [address] [facility] [id number], [place] [address] Aug, [facility] [place] [facility] [address] [facility] [id number], [place] [address] Aug, [facility] [place] [facility] [address] [facility] [id number], [place] [address] Aug, [facility] [place] [facility] [id number], [place] [address] Aug, [facility] [id number] [address] Aug, [facility] [id number] [address] Jun, [facility] [id number] [address] Jun, [facility] [id number] [address] [address] Jun, [facility] [id number] [place] [id number] Jun, [facility] [id number] [address] Jun, [facility] [id number], [place] [address] May, [facility] [id number], [place] [address] 10 May, 2010 IMMUNIZATIONS No Known Immunizations SOCIAL HISTORY Never Assessed REASON FOR VISIT Sinus Infection Zay RN PLAN OF CARE Activity Details Follow Up pending ENT referral and if not improving and prn Reason: VITAL SIGNS Height 62 in 2017-05-27 Weight 202.0 lbs 2017-05-27 Temperature 98.5 degrees Fahrenheit 2017-05-27 Heart Rate 60 bpm 2017-05-27 Respiratory Rate 18 2017-05-27 BMI 36.94 kg/m2 2017-05-27 Blood pressure systolic 134 mmHg 2017-05-27 Blood pressure diastolic 78 mmHg 2017-05-27 MEDICATIONS Medication Instructions Dosage Frequency Start Date End Date Duration Status ZyrTEC 10 mg 1 tablet by Oral route 1 time per day Dec, Active ProAir HFA 108 (90 Base) MCG/ACT INHALE 2 PUFFS NEEDED 4 TIMES A DAY 25 Active Benadryl Allergy 25 MG Orally every 6 hrs 1 tablet as needed 6h Active Flonase 50 MCG/ACT Nasally 2 times a day 1 spray in each nostril 12h 04 May Active PredniSONE 10 MG Orally as directed by pack Day 1- take 4 tablets, Day2- 3tablets, Day3- 3 tablets, Day4- 2 tablets, Day5- 1 tablets, Day6- 1 tablet May, May, 6 days Active Tapazole 5 mg Orally Once a day 4 tablet with food 24h Active Cardizem CD 180 MG Orally Once a day 1 capsule 24h January, Active Eliquis 5 mg Orally 2 times a day 1 tablet 12h January, Active Singulair 10 mg 1 tablet by Oral route 1 time per day for 30 days Jun, Active Celecoxib 200 mg Orally Once a day 1 capsule 24h 30 Active Sudafed 60 mg Orally every 6 hrs 1 tablet as needed 6h May, 30 days Active EPINEPHrine 0.3 mg/0.3 mL 0.3 mg by Intramuscular route 1 time per dayPRNfor anyphylaxis Feb, Active Clindamycin HCl 300 MG Orally every 8 hrs 1 capsule 8h May,May 10 days Active Albuterol Sulfate 2.5 mg /3 mL (0.083 %) 1 Each by Inhalation route every 6 hours for cough and wheezePRNfor wheezing or cough Sep, Active Advair Diskus 500-50 MCG/DOSE Inhalation Twice a day 1 puff 12h Oct, Active Fluoxetine 20 mg 1 capsule Once a day orally Active Atrovent HFA 17 MCG/ACT Inhalation Four times a day 2 puffs 6h Active Metoprolol Succinate ER 100 MG Orally Once a day 1 tablet 24h Active RESULTS No Results PROCEDURES No Known [...]
--- OUTSIDE RECORDS SUMMARY | 2018-02-15 13:50 | XMS REPORT ---
Author Author BRITTNEY ROMERO Organization [facility] Address [address] [place] [address] Care Team Providers Care Legal Support Analyst Name Role Phone BRITTNEY ROMERO Unavailable PROBLEMS Type Condition ICD9-CM Code [id number] Code Onset Dates Condition Status SNOMED Code Problem Rosacea L71.9 Active 268316279 Problem Enlarged thyroid E01.0 Active 86285012 Problem COPD exacerbation J44.1 Active 207897884 Problem Decreased hearing of left ear H91.92 Active 651319274 Problem Severe persistent asthma with exacerbation J45.51 Active 103153472 Problem Chronic sinusitis of both maxillary sinuses J32.0 Active [id number] Problem H/O breast augmentation Z98.82 Active 275074516 Problem Atelectasis J98.11 Active 27361436 Problem Chronic sinusitis, unspecified location J32.9 Active 50199973 Problem Right wrist effusion M25.431 Active 293385130 Problem Primary osteoarthritis, left ankle and foot M19.072 Active 73566970 Problem Primary osteoarthritis of right foot M19.071 Active 521821842 Problem Depressive disorder, not elsewhere classified F32.9 Active 05171023 Problem Arthritis of both hips M12.9 Active 95213055 Problem Chronic obstructive pulmonary disease, unspecified J44.9 Active 255973506 Problem Hyperthyroidism E05.90 Active 60710057 Problem Essential hypertension I10 Active 73737761 Problem Atrial fibrillation, unspecified type I48.91 Active 44507791 ALLERGIES No Information ENCOUNTERS Encounter Location Date Diagnosis [place] [address] [facility] [id number] [id number] Dec, Jaw pain R68.84 [place] [address] [facility] [id number][place] [address] Dec, [place] [id number] [id number] Dec, Chronic sinusitis, unspecified location J32.9 ; Swelling of left side of face R22.0 and Decreased hearing of left ear H91.92 [facility] [address] [id number], [place] [id number] Nov, Dental examination Z01.20 [address]65[address] [id number] Nov, Chronic obstructive pulmonary disease, unspecified J44.9 [place] [id number] [place] [address] [id number] Oct, Chronic obstructive pulmonary disease, unspecified J44.[address] [id number], [place] [address] Sep, [facility] [address] [id number][place] [address] Sep, [facility] [address] [place] [address] [id number] Sep, Atelectasis J98.11 and Severe persistent asthma with exacerbation J45.[address] [place] [address] [id number] Sep, [place] [id number] [place] [address] [id number] Sep, Cough R05 ; Shortness of breath R06.02 ; Low oxygen saturation R79.81 ; Wheezing R06.2 ; Decreased breath sounds at right lung base R09.89 ; Fever, unspecified fever cause R50.9 and COPD exacerbation J44.1 [facility] [address] [id number][place] [id number] Aug, Chronic sinusitis, unspecified location J32.9 and Acute mucoid otitis media of left ear H65.112 [address] [place] [address] [id number] Aug, Medial epicondylitis of left elbow M77.02 ; Chronic sinusitis of both maxillary sinuses J32.0 and History of sinus surgery Z98.890 [place] [id number] [place] [address] [id number] Jul, [facility] [id number], [place] [id number] Jul, [place] [id number] [place] [address] [id number] Jul, Atrial fibrillation, unspecified type I48.91 ; Enlarged thyroid E01.0 ; Hyperthyroidism E05.90 and Pre-diabetes R73.[address] [place] [address] [id number] Jul, Elevated blood sugar R73.9 [address] [place] [address] [id number] Jul, Atrial fibrillation, unspecified type I48.91 and Hyperthyroidism E05.90 [facility] [address]00565100[place] [address] Jul, Atrial fibrillation, unspecified type I48.91 and Hyperthyroidism E05.90 [address] [place] [address] [id number] Jun, Acute recurrent frontal sinusitis J01.11 [address] [place] [address] [id number] Jun, [place] [id number] [place] [address] [id number] May, Screening breast examination Z12.31 and H/O breast augmentation Z98.[address] [place] [address] [id number] May, [place] [id number] [place] [address] [id number] May, Nasal polyp J33.9 and Acute non-recurrent frontal sinusitis J01.[address] [place] [address] [id number] May, COPD exacerbation J44.1 [address] [place] [address] [id number] Apr, [address] [place] [address] [id number] January, Enlarged thyroid E01.0 and COPD exacerbation J44.1 [place] [id number] [place] [address] [id number] January, Chronic obstructive pulmonary disease, unspecified J44.[address] [id number] Dec, [address] [id number] Dec, [address] [id number] Dec, Cough R05 ; Shortness of breath R06.02 ; Urinary frequency R35.0 and Chronic obstructive pulmonary disease, unspecified J44.[address] [id number] Nov, Bronchitis J40 and Cough R05 [address] [id number] Aug, Pain of left hand M79.642 ; Atrial fibrillation, unspecified type I48.91 and Screening for hyperlipidemia Z13.220 [place] [id number] [place] [address] [id number] Aug, [place] [address] [place] [address] [id number] Aug, Pain of left foot M79.672 ; Pain in right foot M79.671 ; Pain of left hand M79.642 ; Pain in right hand M79.641 ; Screening for hyperlipidemia Z13.220 and Atrial fibrillation, unspecified type I48.91 [place] [address] [place] [address] [id number] Jul, Rash R21 ; Arthritis of both hips M12.9 ; Depressive disorder, not elsewhere classified F32.9 ; Atrial fibrillation, unspecified type I48.91 ; Hyperthyroidism E05.90 and Chronic obstructive pulmonary disease, unspecified J44.9 [facility] [address] [place] [place] [id number] [place] [address] Jun, [facility] [address] [address] Jun, Rosacea L71.9 [facility] [address] [place] [id number] [place] [address] [id number] Jun, Rosacea L71.9 and Oral herpes simplex infection B00.2 [facility] [address] [id number] Jun, Rash R21 [facility] [address] [id number] Jun, Asthma exacerbation J45.901 [facility] [address] [id number] Apr, [facility] [address] [id number] Apr, Acute diffuse otitis externa of right ear H60.311 and Rash R21 [facility] [address] [address] Feb, Rash R21 [facility] [address] [address] Feb, [facility] [address] [place] [id number] [place] [address] [id number] January, Hyperthyroidism E05.[address] [id number] January, Atrial fibrillation, unspecified type I48.91 and Hyperthyroidism E05.90 [facility] [address] [address] January, [facility] [address] [place] [id number] [place] [address] [id number] January, Atrial fibrillation, unspecified type I48.91 [facility] [address] [place] [id number] [place] [address] [id number] Dec, Asthma exacerbation J45.901 [facility] [address] [id number] [place] [address] [id number] Dec, [facility] [address] [address] [id number] [place] [address] [id number] Oct, Acute maxillary sinusitis, recurrence not specified J01.00 and Acute cystitis with hematuria N30.01 [facility] [id number] [id number] Oct, Sinusitis J32.9 [facility] [address] [id number] [place] [address] [id number] Sep, Chronic obstructive pulmonary disease, unspecified J44.9 ; Depressive disorder, not elsewhere classified F32.9 ; Arthritis of both hips M12.9 and Essential hypertension I10 [place] [address]00565100[place], [place] [id number] Sep, [facility] [id number] [place] [address] [id number] Sep, [facility] [address] [place] [id number] [place] [address] [id number] Sep, Right hip pain M25.551 [facility] [address] [place] [id number] [place] [address] [id number] Sep, [facility] [address] [id number] [place] [address] [id number] Sep, [facility] [address] [place] [id number] [place] [address] [id number] Sep, Hemoptysis R04.2 ; Pain in right hip M25.551 and Pain in left hip M25.552 [facility] [id number] [place] [address] [id number] Aug, [facility] [id number], [place] [id number] Aug, Sinusitis J32.9 ; Cough R05 and Wheezing R06.2 [facility] [address] [place] [id number] [id number] May, [facility] [id number] [place] [address] [id number] May, [facility] [id number], [place] [id number] May, [facility] [id number] [place] [address] [id number] Apr, Chronic airway obstruction, not elsewhere classified [address] [facility]00565[address] [address] Apr, [address] [place] [address] [id number] Apr, Bronchitis, chronic obstructive, with exacerbation 491.21 [facility] [id number] [place] [address] [id number] Mar, [place] [id number] [place] [address] [id number] Mar, Asthma, unspecified, with (acute) exacerbation 493.92 and Rhinitis 472.[address] [place] [address] [id number] Feb, [place] [id number] [place] [address] [id number] Feb, [address] [place] [address] [id number] Feb, Pituitary incidentaloma 227.3 and Abnormal MRI of the head 793.0 [address] [place] [address] [id number] Feb, [address] [place] [address] [id number] January, Muscle weakness of lower extremity 728.87 ; Abnormal involuntary movements 781.0 ; Unspecified otitis media 382.9 and Other general symptoms 780.[address] [place] [address] [id number] January, Acute sinusitis, unspecified 461.9 and Muscle weakness of lower extremity 728.87 [address]65[address], [place] [id number] January, Bronchitis 490 and Cough 786.2 [facility] [address] [id number] [id number] Dec, [id number] [place] [address] [id number] Dec, [address] [id number], [place] [id number] Dec, [facility] [address]00565100[place], [place] [address]- [address] 14 Dec, 2014 [facility] [place] [facility] [address] [facility] [id number], [place] [address]- 0[address] Dec, [facility] [place] [facility] [address] [facility] [id number], [place] [address]- 64[address] Oct, 2014 [facility] [place] [facility] [address] [facility] [id number], [place] [address]- 1357 Oct, 2014 [facility] [place] [facility] [address] [facility] [id number], [place] [address]- 7745 Oct, 2014 [facility] [place] [facility] [address] [facility] [id number] [place] [address]- 1922 Oct, 2014 [facility] [place] [facility] [address] [facility] [id number], [place] [address]- 7400 Oct, 2014 [facility] [place] [facility] [address] [facility] [id number], [place] [address]- 2290 Oct, 2014 [facility] [place] [facility] [address] [facility] [id number], [place] [address]- 0157 Oct, 2014 [facility] [address] [facility] [id number], [place] [id number] Oct, 2014 [facility] [place] [facility] [address] [facility] [id number], [place] [address]- 8329 Oct, 2014 [facility] [place] [facility] [address] [facility] [id number], [place] [address]- 4146 Oct, 2014 [facility] [place] [facility] [address] [facility] [id number], [place] [address]- 3482 Oct, 2014 [facility] [address] [facility] [id number], [place] [id number] Aug, [facility] [place] [facility] [address] [facility] [id number][place] [address]- 49[address] Aug, [facility] [address] [facility] [id number], [place] [id number] Jul, [facility] [place] [facility] [address] [facility] [id number], [place] [address]- 54[address] Jul, [facility] [address] [facility] [id number], [place] [address]- 8663 Jun, [facility] [address] [facility] [id number], [place] [id number] Jun, [facility] [place] [facility] [address] [facility] [id number][place] [address]- 1883 Jun, [facility] [address] [facility] [id number], [place] [id number] Jun, [facility] [place] [facility] [address] [facility] [id number], [place] [address]- 7715 Jun, [facility] [address] [facility] [id number], [place] [id number] May, [facility] [place] [facility] [address]00565100[place], [place] [address]- 29[address] May, [facility] [address] [facility] [id number], [place] [id number] May, [facility] [place] [facility] [address] [place] [id number], [place] [address]- 7[address] May, [facility] [address] [facility] [id number], [place] [id number] May, [facility] [place] [facility] [address] [facility] [id number], [place] [address]- 4[address] May, [facility] [place] [facility] [address]00565100[place], [place] [address]- 2704 Mar, [facility] [place] [facility] [address] [facility] [id number], [place] [address]- 2732 Mar, [facility] [address] [facility] [id number], [place] [id number] January, [facility] [place] [facility] [address] [facility] [id number][place] [address]- 0965 January, [facility] [address] [facility] [id number], [place] [id number] Oct, [facility] [place] [facility] [address] [id number] [place] [address]- 0100 Oct, [facility] [place] [facility] [address] [id number] [place] [address]- 2097 Jul, [facility] [place] [facility] [address] [id number] [place] 7[address] Jun, [facility] [place] [facility] [address] [id number] [place] [address]- 3891 Jun, [facility] [place] [facility] [address] [id number] [place] [address]- 9609 May, [facility] [place] [facility] [address] [id number] [place] [address]- 3568 May, [facility] [place] [facility] [address] [facility] [id number] [place] [address]- 3613 Apr, [facility] [place] [facility] [address] [facility] [id number] [place] [address]- 1679 Apr, [facility] [place] [facility] [address] [id number] [place] [address]- 6872 Mar, [facility] [place] [facility] [address] [facility] [id number] [place] [address]- 6773 Feb, [facility] [place] [facility] [address] [facility] [id number] [place] [address]- 5263 Nov, [facility] [place] [facility] [address] [id number], [place] [address]- 3064 Oct, [facility] [place] [facility] [address] [id number] [place] [address]- 8147 Oct, [facility] [place] [facility] [address] [id number] [place] [address]- 4842 Oct, [facility] [place] [facility] [address] [facility] [id number] [place] 0667 Oct, [facility] [place] [facility] [address] [facility] [id number], [place] [address]- 2546 Oct, [facility] [place] [facility] [address] [id number] [place] [address]- 2546 Sep, [facility] [place] [facility] [address] [id number] [place] [address]- 2546 Sep, [facility] [place] [facility] [address] [id number] [place] [address]- 2546 Jul, [facility] [place] [facility] [address] [id number] [place] [address]- 2546 Jul, [facility] [place] [facility] [address] [id number] [place] [address]- 4216 May, [facility] [place] [facility] [address] [facility] [id number] [place] [address]- 2546 May, [facility] [place] [id number] [id number] 05 May, 2012 [facility] [place] [facility] [address] [id number] [place] [address]- 0391 May, [facility] [place] [facility] [address] [id number] [place] [address]- 8072 May, [facility] [place] [facility] [address] [place] [id number] [place] [address]- 2756 May, [facility] [place] [facility] [address] [id number] [place] [address]- 0526 Apr, [facility] [place] [facility] [address] [id number], [place] [address]- 2546 Apr, [facility] [place] [facility] [address] [id number] [place] [address]- 2546 Apr, [facility] [place] [facility] [address] [id number] [place] [address]- 2546 Mar, [facility] [place] [facility] [address] [id number] [place] [address]- 2546 Mar, [facility] [place] [facility] [address] [id number], [place] [address]- 2546 Mar, [facility] [address] [id number] [place] [address]- 2546 Mar, [facility] [place] [facility] [address] [id number] [place] [address]- 2546 Feb, [facility] [place] [facility] [address] [id number], [place] [id number] Feb, [facility] [place] [facility] [address] [id number], [place] [address]- 2546 Feb, [facility] [place] [facility] [address] [id number], [place] 1419765[address] Feb, [facility] [place] [facility] [address] [id number], [place] [address]- 2546 Feb, [facility] [address] [id number], [place] [address]- 2546 Feb, [facility] [address] [facility] [address] [id number][place] [address] January, [facility] [place] [facility] [address] [id number] [place] [address]- 2546 January, [facility] [place] [facility] [address] [id number], [place] [id number] January, [facility] [place] [facility] [address] [id number], [place] [address]- 2546 January, [facility] [place] [facility] [address] [id number], [place] [id number] January, [facility] [place] [facility] [address] [id number] [place] [address]- 2546 January, [facility] [place] [facility] [address] [id number] [place] [address]- 2546 January, [facility] [place] [facility] [address] [id number] [place] [address]- 2546 January, [facility] [place] [facility] [address] [facility] [id number], [place]32326 Dec, [facility] [address] [facility] [id number], [place] [address]- 2356 Dec, [facility] [place] [facility] [address] [facility] [id number], [place] [address]- 6116 Dec, [facility] [address] [facility] [id number], [place] [address]- 8956 Dec, [facility] [place] [facility] [address] [facility] [id number], [place] [address]- 9786 Dec, [facility] [address] [facility] [id number], [place] [id number] Dec, [facility] [place] [facility] [address] [facility] [id number], [place] [address]- 8306 Nov, [facility] [address]00565100[place], [place] [address]- 5956 Nov, [facility] [address] [facility] [id number], [place] [address]- 2546 Nov, [facility] [place] [facility] [address]00565100[place], [place] [address] Oct, [facility] [place] [facility] [address]00565100[place], [place] [id number] Oct, [facility] [place] [facility] [address] [facility] [id number], [place] [address]- 2546 Oct, [facility] [address] [facility] [id number], [place] [id number] Sep, [facility] [place] [facility] [address] [id number], [place] [address]- 2546 Sep, [facility] [address] [id number], [place] 556756[address] Sep, [facility] [address] [facility] [id number], [place] [id number] Sep, [facility] [place] [facility] [address] [facility] [id number], [place] [address]- 9277 Aug, [facility] [address] [id number] [place] [id number] Aug, [facility] [place] [facility] [address] [id number] [place] [address] Aug, [facility] [place] [facility] [address] [id number] [place] [address] Aug, [facility] [place] [facility] [address] [id number] [place] [address] Jul, [facility] [place] [facility] [address] [id number] [place] [address] Jul, [facility] [place] [facility] [address] [id number] [place] [address] May, [facility] [place] [facility] [address] [id number] [place] [address] January, [facility] [place] [facility] [address] [id number] [place] [address] Dec, [facility] [place] [facility] [address] [id number] [place] [address] Nov, [facility] [place] [facility] [address] [id number] [place] [address] Aug, [facility] [place] [facility] [address] [id number] [place] [address] Aug, [facility] [place] [facility] [address] [id number] [place] [address] 10 Aug, 2010 [facility] [place] [facility] [address] [id number] [place] [address] Aug, [facility] [place] [facility] [address] [id number] [place] [address] Aug, [facility] [place] [facility] [address] [id number] [place] [address] Aug, [facility] [place] [facility] [address] [facility] [id number] [place] [address] 27 Jun, 2010 [facility] [address] [facility] [id number], [place] [address] Jun, [facility] [address] [id number], [place] [address] Jun, [facility] [address] [id number], [place] [address] Jun, [facility] [address] [id number], [place] [address] Jun, [facility] [address] [id number], [place] [address] 14 May, 2010 [facility] [address] [id number], [place] [address] 10 May, 2010 IMMUNIZATIONS No Known Immunizations SOCIAL HISTORY Never Assessed REASON FOR VISIT Waiting for call back PLAN OF CARE VITAL SIGNS MEDICATIONS Unknown Medications RESULTS Name Result Date Reference Range Mammogram, Bilateral Screening PROCEDURES No Known procedures INSTRUCTIONS MEDICATIONS ADMINISTERED [...]
--- OUTSIDE RECORDS SUMMARY | 2018-02-15 13:50 | XMS REPORT ---
Author Author BRITTNEY ROMERO Organization [facility] Address [address] [place] [address] Care Team Providers Care Safety Consultant Name Role Phone BRITTNEY ROMERO Unavailable PROBLEMS Type Condition ICD9-CM Code ROA38-IK Code Onset Dates Condition Status SNOMED Code Problem Rosacea L71.9 Active 311678983 Problem Enlarged thyroid E01.0 Active 44654614 Problem COPD exacerbation J44.1 Active 132885250 Problem Decreased hearing of left ear H91.92 Active 315837547 Problem Severe persistent asthma with exacerbation J45.51 Active 209379895 Problem Chronic sinusitis of both maxillary sinuses J32.0 Active [id number] Problem H/O breast augmentation Z98.82 Active 227859384 Problem Atelectasis J98.11 Active 01093343 Problem Chronic sinusitis, unspecified location J32.9 Active 62413745 Problem Right wrist effusion M25.431 Active 898616748 Problem Primary osteoarthritis, left ankle and foot M19.072 Active 69388860 Problem Primary osteoarthritis of right foot M19.071 Active 236919978 Problem Depressive disorder, not elsewhere classified F32.9 Active 29221450 Problem Arthritis of both hips M12.9 Active 75425760 Problem Chronic obstructive pulmonary disease, unspecified J44.9 Active 114775295 Problem Hyperthyroidism E05.90 Active 69305742 Problem Essential hypertension I10 Active 60530368 Problem Atrial fibrillation, unspecified type I48.91 Active 10560185 ALLERGIES No Information ENCOUNTERS Encounter Location Date Diagnosis [place] [address] [facility] [id number] [place] [id number] Dec, Jaw pain R68.84 [place] [address] [facility] [id number] [place] [id number] Dec, [id number] [id number] Dec, Chronic sinusitis, unspecified location J32.9 ; Swelling of left side of face R22.0 and Decreased hearing of left ear H91.92 [facility] [address] [id number] [id number] Nov, Dental examination Z01.20 [address] [id number] Nov, Chronic obstructive pulmonary disease, unspecified J44.9 [place] [id number] [place] [address] [id number] Oct, Chronic obstructive pulmonary disease, unspecified J44.[address] [id number] [id number] Sep, [facility] [address] [id number] [id number] Sep, [facility] [address] [place] [address] [id number] Sep, Atelectasis J98.11 and Severe persistent asthma with exacerbation J45.[address] [place] [address] [id number] Sep, [place] [id number] [place] [address] [id number] Sep, Cough R05 ; Shortness of breath R06.02 ; Low oxygen saturation R79.81 ; Wheezing R06.2 ; Decreased breath sounds at right lung base R09.89 ; Fever, unspecified fever cause R50.9 and COPD exacerbation J44.1 [facility] [address] [id number], [place] [id number] Aug, Chronic sinusitis, unspecified location J32.9 and Acute mucoid otitis media of left ear H65.[address] [place] [address] [id number] Aug, Medial epicondylitis of left elbow M77.02 ; Chronic sinusitis of both maxillary sinuses J32.0 and History of sinus surgery Z98.890 [place] [id number] [place] [address] [id number] Jul, [facility] [id number] [place] [id number] Jul, [place] [id number] [place] [address] [id number] Jul, Atrial fibrillation, unspecified type I48.91 ; Enlarged thyroid E01.0 ; Hyperthyroidism E05.90 and Pre-diabetes R73.[address] [place] [address] [id number] Jul, Elevated blood sugar R73.9 [address] [place] [address] [id number] Jul, Atrial fibrillation, unspecified type I48.91 and Hyperthyroidism E05.90 [facility] [address]00565100[place] [address] Jul, Atrial fibrillation, unspecified type I48.91 and Hyperthyroidism E05.90 [address] [place] [address] [id number] Jun, Acute recurrent frontal sinusitis J01.11 [address] [place] [address] [id number] Jun, [place] [id number] [place] [address] [id number] May, Screening breast examination Z12.31 and H/O breast augmentation Z98.82 [address] [place] [address] [id number] May, [place] [id number] [place] [address] [id number] May, Nasal polyp J33.9 and Acute non-recurrent frontal sinusitis J01.[address] [place] [address] [id number] May, COPD exacerbation J44.1 [address] [place] [address] [id number] Apr, [address] [place] [address] [id number] January, Enlarged thyroid E01.0 and COPD exacerbation J44.1 [place] [id number] [place] [address] [id number] January, Chronic obstructive pulmonary disease, unspecified J44.[address] [id number] Dec, [address] [id number] Dec, [address] [id number] Dec, Cough R05 ; Shortness of breath R06.02 ; Urinary frequency R35.0 and Chronic obstructive pulmonary disease, unspecified J44.[address] [id number] Nov, Bronchitis J40 and Cough R05 [address] [id number] Aug, Screening for hyperlipidemia Z13.220 ; Pain of left hand M79.642 and Atrial fibrillation, unspecified type I48.91 [place] [id number] [place] [address] [id number] Aug, [place] [id number] [place] [address] [id number] Aug, Pain of left foot M79.672 ; Pain in right foot M79.671 ; Pain of left hand M79.642 ; Pain in right hand M79.641 ; Screening for hyperlipidemia Z13.220 and Atrial fibrillation, unspecified type I48.91 [place] [id number] [place] [address] [id number] Jul, Rash R21 ; Arthritis of both hips M12.9 ; Depressive disorder, not elsewhere classified F32.9 ; Atrial fibrillation, unspecified type I48.91 ; Hyperthyroidism E05.90 and Chronic obstructive pulmonary disease, unspecified J44.9 [facility] [address] [place] [id number] [place] [address] Jun, [facility] [address] [address] Jun, Rosacea L71.9 [facility] [address] [place] [id number] [place] [address] [id number] Jun, Rosacea L71.9 and Oral herpes simplex infection B00.2 [facility] [address] [id number] Jun, Rash R21 [facility] [address] [id number] Jun, Asthma exacerbation J45.901 [facility] [address] [id number] Apr, [facility] [address] [id number] Apr, Acute diffuse otitis externa of right ear H60.311 and Rash R21 [facility] [address] [address] Feb, Rash R21 [facility] [address] [address] Feb, [facility] [address] [place] [id number] [place] [address] [id number] January, Hyperthyroidism E05.[address] [id number] January, Atrial fibrillation, unspecified type I48.91 and Hyperthyroidism E05.90 [facility] [address] [address] January, [facility] [address] [place] [id number] [place] [address] [id number] January, Atrial fibrillation, unspecified type I48.91 [facility] [address] [place] [id number] [place] [address] [id number] Dec, Asthma exacerbation J45.901 [facility] [address] [place] [id number] [place] [address] [id number] Dec, [facility] [address] [address] [id number] [place] [address] [id number] Oct, Acute maxillary sinusitis, recurrence not specified J01.00 and Acute cystitis with hematuria N30.01 [facility] [id number] [place] [id number] Oct, Sinusitis J32.9 [facility] [address] [place] [id number] [place] [address] [id number] Sep, Chronic obstructive pulmonary disease, unspecified J44.9 ; Depressive disorder, not elsewhere classified F32.9 ; Arthritis of both hips M12.9 and Essential hypertension I10 [place] [id number]00565100[place] [id number] Sep, [facility] [id number] [place] [address] [id number] Sep, [facility] [address] [place] [id number] [place] [address] [id number] Sep, Right hip pain M25.551 [facility] [address] [place] [id number] [place] [address] [id number] Sep, [facility] [address] [place] [id number] [place] [address] [id number] Sep, [facility] [address] [place] [id number] [place] [address] [id number] Sep, Hemoptysis R04.2 ; Pain in right hip M25.551 and Pain in left hip M25.552 [facility] [id number] [place] [address] [id number] Aug, [facility] [id number] [place] [id number] Aug, Sinusitis J32.9 ; Cough R05 and Wheezing R06.2 [facility] [address] [place] [id number] [id number] May, [facility] [id number] [place] [address] [id number] May, [facility] [id number] [place] [id number] May, [facility] [id number] [place] [address] [id number] Apr, Chronic airway obstruction, not elsewhere classified [address] [facility]00565100[place] [id number] Apr, [address] [place] [address] [id number] Apr, Bronchitis, chronic obstructive, with exacerbation 491.21 [facility] [id number] [place] [address] [id number] Mar, [place] [id number] [place] [address] [id number] Mar, Asthma, unspecified, with (acute) exacerbation 493.92 and Rhinitis 472.[address] [place] [address] [id number] Feb, [place] [id number] [place] [address] [id number] Feb, [address] [place] [address] [id number] Feb, Pituitary incidentaloma 227.3 and Abnormal MRI of the head 793.0 [address] [place] [address] [id number] Feb, [address] [place] [address] [id number] January, Muscle weakness of lower extremity 728.87 ; Abnormal involuntary movements 781.0 ; Unspecified otitis media 382.9 and Other general symptoms 780.[address] [place] [address] [id number] January, Acute sinusitis, unspecified 461.9 and Muscle weakness of lower extremity 728.87 [address] [id number] January, Bronchitis 490 and Cough 786.2 [facility] [address] [facility] [id number], [place] [id number] Dec, [id number] [place] [address] [id number] Dec, [address] [id number] [place]GELES[place] [id number] Dec, [facility] [address]005[address]100[place], [place] [address]- [address] 14 Dec, 2014 [facility] [place] [facility] [address] [facility] [id number], [place] [address]- [address] Dec, [facility] [place] [facility] [address] [facility] [id number], [place] [address]- 4115 Oct, 2014 [facility] [place] [facility] [address] [facility] [id number], [place] [address]- 7645 Oct, 2014 [facility] [place] [facility] [address] [facility] [id number], [place] [address]- 5503 Oct, 2014 [facility] [place] [facility] [address] [facility] [id number] [place] [address]- 4196 Oct, 2014 [facility] [place] [facility] [address] [facility] [id number][place] [address]- 1102 Oct, 2014 [facility] [place] [facility] [address] [facility] [id number], [place] [address]- 8671 Oct, 2014 [facility] [place] [facility] [address] [facility] [id number], [place] [address]- 2636 Oct, 2014 [facility] [address] [facility] [id number] [place] [id number] Oct, 2014 [facility] [place] [facility] [address] [facility] [id number], [place] [address]- 4789 Oct, 2014 [facility] [place] [facility] [address] [facility] [id number], [place] [address]- 1587 Oct, 2014 [facility] [place] [facility] [address] [facility] [id number][place] [address]- 3973 Oct, 2014 [facility] [address] [facility] [id number] [place] [id number] Aug, [facility] [place] [facility] [address] [facility] [id number], [place] [address]- 3176 Aug, [facility] [address] [facility] [id number] [place] [id number] Jul, [facility] [place] [facility] [address] [facility] [id number], [place] [address]- 4[address] Jul, [facility] [address] [facility] [id number] [address]- 0213 Jun, [facility] [address] [facility] [id number] [place] [id number] Jun, [facility] [place] [facility] [address] [facility] [id number], [place] [address]- 9610 Jun, [facility] [address] [facility] [id number] [place] [id number] Jun, [facility] [place] [facility] [address] [facility] [id number], [place] [address]- 8798 Jun, [facility] [address] [facility] [id number] [place] [id number] May, [facility] [place] [facility] [address]100[place], [place] [address]- 0665 May, [facility] [address] [facility] [id number] [place] [id number] May, [facility] [place] [facility] [address] [place] [id number], [place] [address]- 4778 May, [facility] [address] [facility] [id number] [place] [id number] May, [facility] [place] [facility] [address] [facility] [id number], [place] [address]- 2666 May, [facility] [place] [facility] [address]005[address]100[place], [place] [address]- 0229 Mar, [facility] [place] [facility] [address] [facility] [id number], [place] [address]- 2024 Mar, [facility] [address] [facility] [id number] [place] [id number] January, [facility] [place] [facility] [address] [facility] [id number], [place] [address]- 0290 January, [facility] [address] [facility] [id number] [place] 120053666 Oct, [facility] [place] [facility] [address] [id number] [place] [address]- 6123 Oct, [facility] [place] [facility] [address] [id number] [place] [address]- 9724 Jul, [facility] [place] [facility] [address] [id number] [place]- 1080 Jun, [facility] [place] [facility] [address] [id number] [place] [address]- 6053 Jun, [facility] [place] [facility] [address] [id number] [place] [address]- 3491 May, [facility] [place] [facility] [address] [id number] [place] [address]- 8808 May, [facility] [place] [facility] [address] [facility] [id number] [place] [address]- 0754 Apr, [facility] [place] [facility] [address] [facility] [id number] [place] [address]- 1301 Apr, [facility] [place] [facility] [address] [id number] [place] [address]- 4444 Mar, [facility] [place] [facility] [address] [facility] [id number] [place] [address]- 6297 Feb, [facility] [place] [facility] [address] [facility] [id number] [place] [address]- 6491 Nov, [facility] [place] [facility] [address] [id number], [place] [address]- 8871 Oct, [facility] [place] [facility] [address] [id number] [place] [address]- 1748 Oct, [facility] [place] [facility] [address] [id number] [place] [address]- 3160 Oct, [facility] [place] [facility] [address] [facility] [id number] [place] 3294 Oct, [facility] [place] [facility] [address] [facility] [id number], [place] [address]- 2546 Oct, [facility] [place] [facility] [address] [id number] [place] [address]- 2546 Sep, [facility] [place] [facility] [address] [id number] [place] [address]- 2546 Sep, [facility] [place] [facility] [address] [id number] [place] [address]- 2546 Jul, [facility] [place] [facility] [address] [id number] [place] [address]- 2546 Jul, [facility] [place] [facility] [address] [id number] [place] [address]- 4626 May, [facility] [place] [facility] [address] [facility] [id number] [place] [address]- 2546 May, [facility] [place] [id number] [id number] 05 May, 2012 [facility] [place] [facility] [address] [id number] [place] [address]- 9199 May, [facility] [place] [facility] [address] [id number] [place] [address]- 7490 May, [facility] [place] [facility] [address] [place] [id number] [address]- 8946 May, [facility] [place] [facility] [address] [id number] [place] [address]- 8456 Apr, [facility] [place] [facility] [address] [id number], [place] [address]- 2546 Apr, [facility] [place] [facility] [address] [id number] [place] [address]- 2546 Apr, [facility] [place] [facility] [address] [id number] [place] [address]- 2546 Mar, [facility] [place] [facility] [address] [id number] [place] [address]- 2546 Mar, [facility] [place] [facility] [address] [id number], [place] [address]- 2546 Mar, [facility] [address] [id number] [place] [address]- 2546 Mar, [facility] [place] [facility] [address] [id number] [place] [address]- 2546 Feb, [facility] [place] [facility] [address] [id number][place] 1693702[address] Feb, [facility] [place] [facility] [address] [id number], [place] [address]- 2546 Feb, [facility] [place] [facility] [address] [id number], [place] [address]3088[address] Feb, [facility] [place] [facility] [address] [id number], [place] [address]- 2546 Feb, [facility] [address] [id number], [place] [address]- 2546 Feb, [facility] [address] [facility] [id number] [place] 377668342 January, [facility] [place] [facility] [address] [id number] [place] [address]- 2546 January, [facility] [place] [facility] [address] [id number], [place] [address] January, [facility] [place] [facility] [address] [id number], [place] [address]- 2546 January, [facility] [place] [facility] [address] [id number], [place] 772009896 January, [facility] [place] [facility] [address] [id number] [place] [address]- 2546 January, [facility] [place] [facility] [address] [id number] [place] [address]- 2546 January, [facility] [place] [facility] [address] [id number] [place] [address]- 2546 January, [facility] [place] [facility] [address] [facility] [id number], [place] [address]- 3886 Dec, [facility] [address] [facility] [id number], [place] [address]- 2576 Dec, [facility] [place] [facility] [address] [facility] [id number], [place] [address]- 8666 Dec, [facility] [address] [facility] [id number], [place] [address]- 6868 Dec, [facility] [place] [facility] [address] [facility] [id number], [place] [address]- 2650 Dec, [facility] [address] [facility] [id number] [place]GELES[place] [id number] Dec, [facility] [place] [facility] [address] [facility] [id number], [place] [address]- 5006 Nov, [facility] [address], [place] [address]- 1446 Nov, [facility] [address] [facility] [id number], [place] [address]- 2546 Nov, [facility] [place] [facility] [address]00565100[place], [place] [address] Oct, [facility] [place] [facility] [address]00565100[place], [place] [address] Oct, [facility] [place] [facility] [address] [facility] [id number], [place] [address]- 2546 Oct, [facility] [address] [facility] [id number] [place] 439[address]384 Sep, [facility] [place] [facility] [address] [id number], [place] [address]- 2546 Sep, [facility] [address] [id number] [place] [id number] Sep, [facility] [address] [facility] [id number] [place] 545733968 Sep, [facility] [place] [facility] [address] [facility] [id number], [place] [address] Aug, [facility] [address] [id number] [place] Aug, [facility] [place] [facility] [address] [id number] [place] [address] Aug, [facility] [place] [facility] [address] [id number] [place] [address] Aug, [facility] [place] [facility] [address] [id number] [place] [address] Jul, [facility] [place] [facility] [address] [id number] [place] [address] Jul, [facility] [place] [facility] [address] [id number] [place] [address] May, [facility] [place] [facility] [address] [id number] [place] [address] January, [facility] [place] [facility] [address] [id number] [place] [address] Dec, [facility] [place] [facility] [address] [id number] [place] [address] Nov, [facility] [place] [facility] [address] [id number] [place] [address] Aug, [facility] [place] [facility] [address] [id number] [place] [address] Aug, [facility] [place] [facility] [address] [id number] [place] [address] 10 Aug, 2010 [facility] [place] [facility] [address] [id number] [place] [address] Aug, [facility] [place] [facility] [address] [id number] [place] [address] Aug, [facility] [place] [facility] [address] [id number] [place] [address] Aug, [facility] [place] [facility] [address] [facility] [id number] [place] [address] Jun, [facility] [address] [facility] [id number], [place] [address] Jun, [facility] [address] [id number], [place] [address] Jun, [facility] [address] [id number], [place] [address] Jun, [facility] [address] [id number], [place] [address] Jun, [facility] [address] [id number], [place] [address] 14 May, 2010 [facility] [address] [id number], [place] [address] 10 May, 2010 IMMUNIZATIONS No Known Immunizations SOCIAL HISTORY Never Assessed REASON FOR VISIT mammogram appointment PLAN OF CARE VITAL SIGNS MEDICATIONS Unknown Medications RESULTS No Results PROCEDURES No Known procedures [...]
[2018-02-15] MEDS ORDERED: RT-ALBUTEROL/IPRATROPIUM 3 ML (DUONEB) VIAL INH ONE (14:00)
--- NOTE | 2018-02-15 14:00 | ED Respiratory ---
General Chief Complaint: Respiratory Problems Stated Complaint: COUGH,SOA Source: patient Exam Limitations: no limitations History of Present Illness Date Seen by Provider: February 15, 2018 Time Seen by Provider: 13:55 Initial Comments The patient presents to the ER by private conveyance with a chief complaint the past for 5 days she's had progressively worsening cough now productive of sputum without fevers, chills, shortness of breath, chest pain, nausea vomiting or diarrhea. She has a history of smoking many years ago. She has a history of asthma and COPD as well for which she has been using albuterol for the past 2 or 3 days every 6 hours by nebulizer. She has multiple sick contacts at home with similar respiratory symptoms. She has not been on antibiotics in the last 4 weeks. She says she had some leftover steroids that she started Thursday and finished 2 days ago last week but it did not help her symptoms. Allergies and Home Medications Allergies Uncoded Allergies: PCN (Allergy, Unknown, 03/15/11) SULFA (Allergy, Unknown, 03/15/11) Home Medications Albuterol Sulfate 8.5 Gm Hfa.aer.ad, 1 PUFF IH QID PRN for SHORTNESS OF BREATH, (Reported) Albuterol Sulfate 2.5 Mg/3 Ml Vial.neb, 2.5 MG IH Q6H PRN for SHORTNESS OF BREATH, (Reported) * LAST FILLED 2011 * STILL IN GOOD DATING Apixaban 5 Mg Tablet, 5 MG PO BID, (Reported) Beclomethasone Dipropionate 8.7 Gm Aer.w.adap, 1 PUFF IH BID, (Reported) 40 MCG/ACTUATION DOSE INHALER Cetirizine Hcl 10 Mg Capsule, 10 MG PO DAILY, (Reported) Diltiazem HCl 180 Mg Cap.er.24h, 180 MG PO DAILY, (Reported) Epinephrine 0.3 Mg/0.3 Ml Pen.injctr, 0.3 MG IM PRN, (Reported) PATIENT NOT SURE IF MEDICATION HAS GOOD DATING OR NOT, MAY BE Fluoxetine HCl 20 Mg Capsule, 20 MG PO DAILY, (Reported) Fluticasone Propionate 16 Gm Lueders, 2 SPRAYS NSEACH DAILY, (Reported) Fluticasone/Salmeterol 1 Each Blst.w.dev, 1 PUFF IH BID, (Reported) Ipratropium [place] 12.9 Gm Aers, 2 PUFF IH QID, (Reported) Methimazole 5 Mg Tablet, 5 MG PO TID Prescribed by: MACKENZIE RAYMOND on 02/28/16 1102 Metoprolol Succinate 50 Mg Tab.er.24h, 50 MG PO BID Prescribed by: SVETA COOK on 02/29/16 1210 Montelukast Sodium 10 Mg Tab, 10 MG PO HS, (Reported) Patient Home Medication List Home Medication List Reviewed: Yes Review of Systems Constitutional: No chills, No diaphoresis, No fever; malaise EENTM: hoarseness; No ear discharge, No hearing loss, No ear pain, No mouth pain, No mouth swelling, No nose congestion, No nose pain Respiratory: cough, dyspnea on exertion; No hemoptysis, No orthopnea; phlegm; No short of breath, No wheezing Cardiovascular: No chest pain, No palpitations Gastrointestinal: No abdominal pain, No constipation, No diarrhea, No vomiting , No other Genitourinary: No discharge, No dysuria : No Musculoskeletal: No back pain, No joint pain Skin: No pruritus, No rash Psychiatric/Neurological: Denies Headache, Denies Numbness, Denies Paresthesia Past Peocxsg-Rmsghw-Suiapg Hx Patient Social History Alcohol Use: Denies Use Recreational Drug Use: No Smoking Status: Former Smoker 2nd Hand Smoke Exposure: Yes Recent Hopitalizations: No Immunizations Up To Date Tetanus Booster (TDap): Unknown PED Vaccines UTD: No Date of Pneumonia Vaccine: January 22, 1996 Past Medical History Surgeries: Yes (SINUS ) Section Respiratory: Yes Asthma, COPD Currently Using CPAP: No Currently Using BIPAP: No Cardiac: Yes (A-Fib dx 01-24-16) Atrial Fibrillation Neurological: Yes 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 Sexually Transmitted Disease: No HIV/AIDS: No Gastrointestinal: No Musculoskeletal: Yes Arthritis Endocrine: Yes Hyperthyroidism Cancer: No Psychosocial: Yes Depression Integumentary: No Blood Disorders: No Family Medical History Asthma 19 FATHER G8 BROTHER G8 BROTHER G8 BROTHER Myocardial infarction 19 FATHER, Onset:60 years & older Asthma, CAD Over 55 Years Old Physical Exam Vital Signs Vital Signs - First Documented 02/15/18 02/15/18 14:00 14:06 Temp 98.2 Pulse 73 Resp 16 B/P (MAP) 145/81 (102) Pulse Ox 91 O2 Delivery Room Air Capillary Refill : General Appearance: WD/WN, no apparent distress Eyes: Bilateral Eye Normal Inspection, Bilateral Eye PERRL, Bilateral Eye EOMI HEENT: PERRL/EOMI, normal ENT inspection, TMs normal, pharynx normal Neck: non-tender, full range of motion, supple, normal inspection Respiratory: chest non-tender, no respiratory distress, no accessory muscle use , rhonchi, wheezing (scant) Cardiovascular: normal peripheral pulses, regular rate, rhythm, no edema Gastrointestinal: normal bowel sounds, non tender, soft Extremities: normal capillary refill Neurologic/Psychiatric: alert, oriented x 3 Progress/Results/Core Measures Suspected Sepsis SIRS Temperature: Pulse: Respiratory Rate: Laboratory Tests 02/15/18 14:09: White Blood Count 10.0 Blood Pressure / Mean: Laboratory Tests 02/15/18 14:09: Creatinine 0.70, Platelet Count 215, Total Bilirubin 0.5 Results/Orders Lab Results Laboratory Tests Test 02/15/18 14:09 Range/Units White Blood Count 10.0 4.3-11.0 10^3/uL Red Blood Count 4.87 4.35-5.85 10^6/uL Hemoglobin 13.6 11.5-16.0 G/DL Hematocrit 41 35-52 % Mean Corpuscular Volume 84 80-99 FL Mean Corpuscular Hemoglobin 28 25-34 PG Mean Corpuscular Hemoglobin Concent 33 32-36 G/DL Red Cell Distribution Width 14.0 10.0-14.5 % Platelet Count 215 130-400 10^3/uL Mean Platelet Volume 11.2 H 7.4-10.4 FL Neutrophils (%) (Auto) 65 42-75 % Lymphocytes (%) (Auto) 15 12-44 % Monocytes (%) (Auto) 10 0-12 % Eosinophils (%) (Auto) 9 0-10 % Basophils (%) (Auto) 0 0-10 % Neutrophils # (Auto) 6.5 1.8-7.8 X 10^3 Lymphocytes # (Auto) 1.5 1.0-4.0 X 10^3 Monocytes # (Auto) 1.0 0.0-1.0 X 10^3 Eosinophils # (Auto) 0.9 H 0.0-0.3 10^3/uL Basophils # (Auto) 0.0 0.0-0.1 10^3/uL Sodium Level 139 135-145 MMOL/L Potassium Level 3.8 3.6-5.0 MMOL/L Chloride Level 105 98-107 MMOL/L Carbon Dioxide Level 24 21-32 MMOL/L Anion Gap 10 5-14 MMOL/L Blood Urea Nitrogen 16 7-18 MG/DL Creatinine 0.70 0.60-1.30 MG/DL Estimat Glomerular Filtration Rate > 60 BUN/Creatinine Ratio 23 Glucose Level 115 H 70-105 MG/DL Calcium Level 9.9 8.5-10.1 MG/DL Total Bilirubin 0.5 0.1-1.0 MG/DL Aspartate Amino Transf (AST/SGOT) 37 H 5-34 U/L Alanine Aminotransferase (ALT/SGPT) 47 0-55 U/L Alkaline Phosphatase 104 40-136 U/L Total Protein 6.8 6.4-8.2 GM/DL Albumin 3.7 3.2-4.5 GM/DL My Orders Orders - VIKTORIYA NELSON Cbc With Automated Diff (02/15/18 13:54) Comprehensive Metabolic Panel (02/15/18 13:54) Albuterol/Ipra Inhalation Soln (Duoneb I (02/15/18 14:00) Chest Pa/Lat (2 View) (02/15/18 13:54) Svn Small Volume Nebulizer (02/15/18 13:54) Medications Given in ED Current Medications Medications Dose Ordered Sig/Magdalena Route Start Time Stop Time Status Last Admin Dose Admin Albuterol/ Ipratropium 3 ml ONCE ONCE INH 02/15/18 14:00 02/15/18 14:01 DC 02/15/18 14:05 3 ML Vital Signs/I&O 02/15/18 02/15/18 14:00 14:06 Temp 98.2 Pulse 73 Resp 16 B/P (MAP) 145/81 (102) Pulse Ox 91 94 O2 Delivery Room Air Capillary Refill : Progress Note #1: Time: 14:01 Progress Note DuoNeb by nebulizer, chest x-ray and labs. Progress Note #2: Time: 15:30 Progress Note Upper airway sounds and rhonchus are unaltered by DuoNeb treatment. Bronchitis most likely based on labs and x-ray. Vitals are still good. Diagnostic Imaging Diagonstic Imaging: Xray Plain Films/CT/US/NM/MRI: chest (2v) Comments [facility]IA [facility] [place], [place] NAME: ABIGAIL BARRON [facility] REC#: [id number] PT STATUS: REG ER : 1965 PHYSICIAN: VIKTORIYA NELSON MD ADMIT DATE: 02/15/18/ER Draft Date of Exam:02/15/18 CHEST PA/LAT (2 VIEW) PA and lateral chest at 3:02 p.m. INDICATION: Shortness of breath. FINDINGS: The heart size is within normal limits and stable when compared to 10/29/2017. The lungs are clear. There is no evidence for failure, pneumonia or for pleural effusion. Mediastinum is not widened. The osseous structures are intact. IMPRESSION: There is no evidence for active disease. Dictated on workstation # [id number] Dict: 02/15/18 1512 Trans: 02/15/18 1522 KB [id number] Interpreted by: VINCENT SELF MD Electronically signed by: Reviewed: Reviewed by Me Departure Impression Primary Impression: Acute bronchitis Qualified Codes: J20.9 - Acute bronchitis, unspecified Disposition: 01 HOME, SELF-CARE Condition: Stable Departure-Patient Inst. Decision time for Depature: 15:31 Referrals: BRITTNEY QUINONEZ (PCP/Family) Primary Care Physician Patient Instructions: Acute Bronchitis, Adult (DC) Add. Discharge Instructions: Drink plenty of fluids and use Tylenol or Motrin for the body aches. Use humidifiers and vapor rubs. If your symptoms do not improve over the next couple weeks then you should follow-up with your primary care provider. All discharge instructions reviewed with patient and/or family. Voiced understanding. Copy Copies To 1: KEVIN KRAMER TITUS J February 15, 2018 14:00
[2018-02-15 14:25] LABS: BASOPHILS % (AUTO) 0 % (0-10); EOSINOPHILS # (AUTO) 0.9 10^3/uL (0.0-0.3); EOSINOPHILS % (AUTO) 9 % (0-10); HEMATOCRIT 41 % (35-52); HEMOGLOBIN 13.6 G/DL (11.5-16.0); LYMPHOCYTES # (AUTO) 1.5 X 10^3 (1.0-4.0); LYMPHOCYTES % (AUTO) 15 % (12-44); MEAN CORPUSCULAR HEMOGLOBIN 28 PG (25-34); MEAN CORPUSCULAR HGB CONC 33 G/DL (32-36); MEAN CORPUSCULAR VOLUME 84 FL (80-99); MEAN PLATELET VOLUME 11.2 FL (7.4-10.4); MONOCYTES % (AUTO) 10 % (0-12); NEUTROPHILS # (AUTO) 6.5 X 10^3 (1.8-7.8); NEUTROPHILS % (AUTO) 65 % (42-75); PLATELET COUNT 215 10^3/uL (130-400); RED BLOOD COUNT 4.87 10^6/uL (4.35-5.85)
[2018-02-15 14:36] LABS: ALANINE AMINOTRANSFERASE 47 U/L (0-55); ALBUMIN 3.7 GM/DL (3.2-4.5); ALKALINE PHOSPHATASE 104 U/L (40-136); BILIRUBIN,TOTAL 0.5 MG/DL (0.1-1.0); BUN/CREATININE RATIO 23; CALCIUM 9.9 MG/DL (8.5-10.1); CARBON DIOXIDE 24 MMOL/L (21-32); CHLORIDE 105 MMOL/L (98-107); GFR ESTIMATED > 60; GLUCOSE 115 MG/DL (70-105); POTASSIUM 3.8 MMOL/L (3.6-5.0); SODIUM 139 MMOL/L (135-145); TOTAL PROTEIN 6.8 GM/DL (6.4-8.2)
--- NOTE | 2018-02-15 15:22 | Diagnostic Imaging Report ---
PA and lateral chest at 3:02 p.m. INDICATION: Shortness of breath. FINDINGS: The heart size is within normal limits and stable when compared to 10/29/2017. The lungs are clear. There is no evidence for failure, pneumonia or for pleural effusion. Mediastinum is not widened. The osseous structures are intact. IMPRESSION: There is no evidence for active disease. Dictated by: Dictated on workstation # [id number]
[2018-02-15 15:36] VITALS: BP 145/81
== END 2018-02-15 15:36 | disposition home or self-care (01) ==
LOC: EDUNIT# 13:38 → ER 13:40
DX: J44.0 Chronic obstructive pulmonary disease with (acute) lower respiratory infection (principal); J20.9 Acute bronchitis, unspecified; I48.91 Unspecified atrial fibrillation; E05.90 Thyrotoxicosis, unspecified without thyrotoxic crisis or storm; F32.9 Major depressive disorder, single episode, unspecified; Z88.0 Allergy status to penicillin; Z88.2 Allergy status to sulfonamides; Z79.01 Long term (current) use of anticoagulants; Z82.49 Family history of ischemic heart disease and other diseases of the circulatory system; Z79.51 Long term (current) use of inhaled steroids; Z79.52 Long term (current) use of systemic steroids; Z87.891 Personal history of nicotine dependence; Z87.59 Personal history of other complications of pregnancy, childbirth and the puerperium
CPT/HCPCS: 36415; 71046; 80053; 85025; 94640

== ENCOUNTER → 2018-03-01 | Outpatient (CLI) | payer BC ==
--- NOTE | 2018-03-01 15:14 | Diagnostic Imaging Report ---
INDICATION: Pain in the lateral portion of the left breast. COMPARISON: 03/29/2013. TECHNIQUE: 2D and 3D bilateral diagnostic mammography was performed with CAD. FINDINGS: Bilateral subpectoral breast implants are again noted. The implant contours are smooth. Both breasts are heterogeneously dense limiting the sensitivity of mammography. The overall parenchymal pattern appears to be fairly stable. No dominant mass or malignant appearing microcalcifications are seen. The axillae are unremarkable. IMPRESSION: No mammographic features suspicious for malignancy are identified. Even so, directed sonographic interrogation of the area of pain in the lateral left breast is recommended for further evaluation. ACR BI-RADS Category 0: Incomplete. (Needs additional imaging evaluation). Result letter will be mailed to the patient. Note: At least 10% of breast cancer is not imaged by mammography. Dictated by: Dictated on workstation # [id number]
--- NOTE | 2018-03-01 15:37 | Diagnostic Imaging Report ---
INDICATION: Pain along the lateral portion of the left breast. FINDINGS: Sonographic interrogation of the area of pain in the lateral left breast was performed. No sonographic abnormality is seen. No solid or cystic mass is detected. IMPRESSION: No sonographic abnormality is identified. ACR BI-RADS Category 1: Negative. Dictated by: Dictated on workstation # [id number]
== END ==
LOC: RAD 12:58
PROVIDERS: ATTEND Nurse Practitioner Family
DX: N64.4 Mastodynia (principal)
CPT/HCPCS: 76642; 77066

== ENCOUNTER → 2018-03-09 | Outpatient (CLI) | payer BC ==
[~2018-03-09] MED LIST changes: +CATHETER FLUSH 10 ML SYR IV PRN; +REGADENOSON 0.4 MG/5 ML SYR (LEXISCAN) IV ONE
[2018-03-09 09:28] VITALS: BP 146/84
[2018-03-09 09:31] VITALS: BP 141/101
--- NOTE | 2018-03-11 13:35 | STRESS TEST ---
DATE OF SERVICE: 03/09/2018 RESTING AND POST REGADENOSON TECHNETIUM-99M TETROFOSMIN SPECT CT IMAGING ORDERING PHYSICIAN: Dr. Shea. CLINICAL DIAGNOSIS: Chest discomfort, hypertension. Baseline images were carried out after injection of 10.87 mCi of technetium-99m Tetrofosmin. This was followed by 0.4 mcg regadenoson and 30.5 mCi of technetium-99m Tetrofosmin for stress imaging. The electrocardiogram shows sinus rhythm at baseline. Occasional isolated premature ventricular contraction was seen. The electrocardiogram did not change significantly with the regadenoson infusion. The patient noted some shortness of breath following regadenoson infusion, which resolved shortly afterwards. Review of images at rest and following stress does not indicate any significant perfusion defects consistent with significant myocardial ischemia or infarction. Gated images showed normal global left ventricular systolic function with normal regional wall motion. Left ventricular ejection fraction is calculated to be 63%. Left ventricular end diastolic volume is 87 mL. TID is absent (0.97). CONCLUSIONS: 1. No evidence of any significant myocardial ischemia or infarction on this study. 2. Normal regional wall motion. 3. Normal global left ventricular systolic function with a calculated ejection fraction of 63%. Job ID: [id number] DocumentID: [id number] Dictated Date: 03/11/2018 09:53:02 Nursing Professor Date: 03/11/2018 13:33:58 Dictated By: PHOENIX SHEA MD, MA, FACP, FACC, MTDD
== END ==
LOC: CARD 07:42
PROVIDERS: ATTEND Internal Medicine Cardiovascular Disease
DX: R07.89 Other chest pain (principal); I10 Essential (primary) hypertension; I48.0 Paroxysmal atrial fibrillation; E05.90 Thyrotoxicosis, unspecified without thyrotoxic crisis or storm; G47.33 Obstructive sleep apnea (adult) (pediatric); E66.9 Obesity, unspecified
CPT/HCPCS: 78452; 93017

== ENCOUNTER 2018-04-01 20:43 | Outpatient (CLI) | payer BC ==
[~2018-04-01 20:43] MED LIST changes: -CATHETER FLUSH 10 ML SYR IV PRN; -REGADENOSON 0.4 MG/5 ML SYR (LEXISCAN) IV ONE
== END 2018-04-02 06:28 | disposition home or self-care (01) ==
LOC: SLEEP 20:43
PROVIDERS: ATTEND Nurse Practitioner
DX: G47.33 Obstructive sleep apnea (adult) (pediatric) (principal)
CPT/HCPCS: 95810

== ENCOUNTER → 2018-04-27 | Outpatient (CLI) | payer BC ==
[2018-04-27 15:53] LABS: FREE T4 (FREE THYROXINE) 1.12 NG/DL (0.70-1.48)
== END ==
LOC: LAB 14:49
PROVIDERS: ATTEND Internal Medicine Endocrinology, Diabetes & Metabolism
DX: E05.20 Thyrotoxicosis with toxic multinodular goiter without thyrotoxic crisis or storm (principal)
CPT/HCPCS: 36415; 84439; 84443; 84480

== ENCOUNTER 2019-01-13 09:41 | Observation (INO) | payer BC ==
[~2019-01-13] VITALS: Ht 157.5 cm; Wt 80.3 kg
[~2019-01-13 09:41] MED LIST changes: -LOSA25TA21 PO; +LOSA25TA41 PO
[2019-01-13] MEDS ORDERED: ASPIRIN 81 MG CHEW (CHILDREN'S ASA) ONE (09:50)
[2019-01-13] MEDS ORDERED: NITROGLYCERIN 0.4 MG SL TABS BTL 25'S SL ONE (09:50)
--- NOTE | 2019-01-13 09:50 | NUR ---
PT STATES NOT CHANGE IN CURRENT MED LIST
--- OUTSIDE RECORDS SUMMARY | 2019-01-13 09:50 | XMS REPORT | Clinical Summary ---
Author Author [facility] Organization [facility] Address Unknown Phone Unavailable Care Team Providers Care Security Attendant Name Role Phone Gopi Julian MD Unavailable Unavailable Artie Vela MD Unavailable Raysa Horton MD Unavailable Unavailable Janel Lozada MD PCP Unavailable Janel Lozada MD 100 Unavailable Source Comments Some departments are not documenting in the electronic medical record. If you do not see the information that you expected, contact Release of Information in the Health Information Management department at [phone] for further assistance in locating additional records.[facility] Allergies Comments Active Allergy Reactions Severity Noted Date Penicillins HIVES, RASH, Medium 06/21/2012 EDEMA Sores on mouth and tongue Sulfa (Sulfonamide BLISTERS High 06/21/2012 Antibiotics) Medications End Date Status Medication Sig Dispensed Refills Start Date Active cetirizine (ZYRTEC) 10 mg Take 10 mg by 0 tablet mouth daily. Active ipratropium bromide Inhale 2 0 (ATROVENT HFA) 17 puffs by mcg/actuation inhaler mouth into the lungs daily. Active metFORMIN (GLUCOPHAGE) Take 1 tablet 180 tablet 3 500 mg tablet by mouth 8 twice daily with meals. Active HERBAL DRUGS PO Take by 0 mouth. Prevagen memory support Active calcium citrate Please take 84 tablet 0 (CALCITRATE) 950 mg tab your calcium 8 medication taper as follows: Two (2) tabs by mouth three (3) times daily for one (1) week, then Two (2) tabs by mouth two (2) times daily for one (1) week, then Two (2) tabs by mouth one (1) time daily for one (1) week then STOP. Active meloxicam (MOBIC) 7.5 mg Take one 90 tablet 3 tablet tablet by 8 mouth daily. Active diltiazem CD (CARTIA XT) Take one 90 capsule 1 180 mg capsule capsule by 8 mouth daily. Active fluoxetine (PROZAC) 20 mg Take one 90 capsule 3 capsule capsule by 8 mouth daily. Active fluticasone (FLONASE) 50 Apply two 48 g 6 mcg/actuation nasal spray sprays to 8 each nostril as directed twice daily. Active metoprolol XL (TOPROL XL) Take one 90 tablet 3 100 mg extended release tablet by 8 tablet mouth daily. Active apixaban (ELIQUIS) 5 mg Take one 30 tablet 6 tablet tablet by 8 mouth twice daily. Restart 05/29/2018 Active levothyroxine (SYNTHROID) Take one 90 tablet 3 125 mcg tablet tablet by 8 mouth daily 30 minutes before breakfast. Active fluticasone/salmeterol Inhale one 3 Inhaler 3 (ADVAIR DISKUS) 500-50 puff by mouth 9 mcg inhalation into the diskIndications: Asthma lungs every 12 hours. Active benzonatate (TESSALON) Take one 30 capsule 1 200 mg capsule capsule by 9 mouth every 8 hours as needed for Cough. Active albuterol (PROAIR HFA, Inhale two 3 Inhaler 3 VENTOLIN HFA, OR puffs by 9 PROVENTIL HFA) 90 mouth into mcg/actuation inhaler the lungs every 6 hours as needed. Need appt for additional refills 01/04/2019 Discontinued albuterol (PROAIR HFA, Inhale two 1 Inhaler 2 VENTOLIN HFA, OR puffs by 8 PROVENTIL HFA) 90 mouth into mcg/actuation inhaler the lungs every 6 hours as needed. Need appt for additional refills Active Problems Problem Noted Date Anxiety 06/23/2018 S/P total thyroidectomy 05/31/2018 Paroxysmal atrial fibrillation 05/17/2018 Preop cardiovascular exam 05/17/2018 Multinodular goiter 01/22/2018 Chronic pansinusitis 06/30/2017 Overview: Added automatically from request for surgery [id number] Severe persistent asthma 08/18/2012 Bronchitis, mucopurulent recurrent 08/18/2012 Rhinosinusitis 08/18/2012 COPD (chronic obstructive pulmonary disease) 06/23/2012 Resolved Problems Problem Noted Date Resolved Date Multiple thyroid nodules 04/29/2018 05/26/2018 Overview: Added automatically from request for surgery [id number] Hyperthyroidism 01/22/2018 05/26/2018 Asthma exacerbation 06/06/2015 06/23/2018 Encounters Care Team Description Date Type Specialty Janel Lozada MD 01/04/2019 Refill Family Medicine Eglin Garza MD Disorder of the skin and subcutaneous tissue, unspecified 12/29/2018 Hospital Lab Encounter Elgin Garza MD Skin lesion (Primary Dx) 12/29/2018 Procedure visit Family Medicine Janel Lozada MD Appointment 12/10/2018 Telephone Family Medicine Janel Lozada MD 11/23/2018 Hospital Lab Encounter Janel Lozada MD Hypothyroidism (acquired) (Primary Dx); Viral URI with cough; Skin lesion 11/23/2018 Office Visit Family Medicine Janel Lozada MD Medication Refill 11/03/2018 Telephone Family Medicine from Last 3 Months Immunizations Name Dates Previously Given Next Due Flu Vaccine=>6 Months 06/21/2018 Quadrivalent PF Hepatitis A Vaccine 02/27/2016, 01/24/2016 Hepatitis B Vaccine 02/27/2016, 01/24/2016 Adoles 2 Dose IM Tdap Vaccine 02/27/2016, 01/24/2016 Family History Medical History Relation Name Comments Asthma Brother Asthma Brother Asthma Brother Hyperthyroid Daughter Asthma Father COPD Father Cancer Maternal Grandmother Miscarriages Mother Cancer Paternal Grandmother High Cholesterol Paternal Grandmother Blood Clots Neg Hx Coronary Artery Disease Neg Hx Cystic Fibrosis Neg Hx DVT Neg Hx Pulmonary Embolism Neg Hx Pulmonary Fibrosis Neg Hx Pulmonary HTN Neg Hx Relation Name Status Comments Brother Brother Brother Daughter Father Maternal Grandmother Mother Paternal Grandmother Social History Date Tobacco Use Types Packs/Day Years Used 09/21/2008 - 10/10/2009 Former Smoker Cigarettes 0.4 1 Smokeless Tobacco: Never Used Tobacco Cessation: Counseling Given: No Comments: smoked on/off for 2 years between ages [age]. Alcohol Use Drinks/Week oz/Week Comments Yes 2-3 Standard 1.2 - 1.8 socially drinks or equivalent Sex Assigned at Date Recorded Not on file Industry Job Start Date Occupation Not on file Not on file Not on file Travel End Travel History Travel Start No recent travel history available. 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 Oxygen Saturation 95% - Inhaled Oxygen - Concentration 12/29/2018 11:24 AM CDT Weight 89.8 kg (198 lb) 12/29/2018 11:24 AM CDT Height 157.5 cm (5' 2") 12/29/2018 11:24 AM CDT Body Mass Index 36.21 Plan of Treatment Health Maintenance Due Date Last Done Comments BREAST CANCER SCREENING 2003 COLORECTAL CANCER 2013 SCREENING SHINGLES RECOMBINANT 2013 VACCINE (1 of 2) PHYSICAL (COMPREHENSIVE) 02/22/2019 02/22/2018 EXAM INFLUENZA VACCINE 04/21/2019 06/21/2018 CERVICAL CANCER SCREENING 07/07/2021 07/07/2018 DTAP/TDAP VACCINES (3 - 02/26/2026 02/27/2016, 01/24/2016 Td) HEPATITIS C SCREENING Completed 02/22/2018 Implants Device Identifier Shelf Expiration Date Model / Serial / Lot Implanted Type Area Manufactur er 11/25/2017 [id number] / NA / [id number] Implant Propel Mometasone Furoate Left: Nose INTERSECT 370 Mcg - Sna ENT Implanted: Qty: 1 on 07/20/2017 by Nabeel Aguirre MD 03/23/2018 [id number] / NA / [id number] Implant Propel Mometasone Furoate Right: Nose INTERSECT 370 Mcg - Sna ENT Implanted: Qty: 1 on 07/20/2017 by Nabeel Aguirre MD Procedures Comments Procedure Name Priority Date/Time Associated Diagnosis SURGICAL PATHOLOGY 12/29/2018 2:03 PM CDT FREE T4 (FREE THYROXINE) Routine 11/23/2018 Hypothyroidism (acquired) ONLY 2:41 PM CRUSHER MACHINE 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 THYROID STIMULATING Routine 11/23/2018 Hypothyroidism (acquired) HORMONE-TSH 2:41 PM CRUSHER MACHINE 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 from Last 3 Months Results * SURGICAL PATHOLOGY (12/29/2018 2:03 PM CDT) PATHOLOGY [facility] [email or web address] Department of Pathology and Laboratory Medicine [address] [place] [id number] Surgical Pathology Office:[phone] :[phone] SURGICAL PATHOLOGY REPORT NAME: BRITTANIE BARRON SURG PATH #: [id number] MR #: [id number] SPECIMEN CLASS: SR BILLING #: [id number] ALT ID #:LOCATION: [facility] DATE OF PROCEDURE: 12/29/2018 AGE:53 SEX: F DATE RECEIVED: 12/29/2018 : 1965TIME RECEIVED:14:03 PHYSICIAN: ELGIN GARZA DATE OF REPORT: 12/30/2018 COPY TO: ALLISON KIM MD DATE OF PRINTIN12/30/2018 ############################## ############################## ############ Final Diagnosis: A. Right lower abdomen skin lesion: -- Seborrheic keratosis Attestation: By this signature, I attest that I have personally formulated the final interpretation expressed in this report and that the above diagnosis is based upon my examination of the slides and/or other material indicated in this report. +++ +++ gf/12/30/2018 ############################## ############################## ############ Material Received: A: right lower abdomen skin lesion History: A. Lesion, pruritic and bleeding Gross Description: A. Labeled "right lower abdomen skin lesion" are two shaves measuring 0.7 x 0.5 x 0.1 cm and 1.0 x 0.6 x 0.3 cm. Both fragments are bisected and submitted entirely in A1. 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 For more information, please contact: [facility] [address] [place] [address] Date Inactivated Comments Code Status Date Activated 05/27/2018 5:29 PM Full Code 05/26/2018 6:55 PM Provider has discussed Code Status No, discussion not w/Patient or Family? necessary based on Dx
--- OUTSIDE RECORDS SUMMARY | 2019-01-13 09:51 | XMS REPORT | Encounter Summary ---
Author Author [facility] Organization [facility] Address Unknown Phone Unavailable Care Team Providers Care Traffic Rate Clerk Name Role Phone Gopi Julian MD Unavailable Unavailable Artie Vela MD Unavailable Raysa Horton MD Unavailable Unavailable Janel Lozada MD PCP Unavailable Janel Lozada MD 100 Unavailable Reason for Visit * Reason Comments Appointment Encounter Details Care Team Description Date Type Department Janel Lozada MD [address] [place] [address] Appointment 12/10/2018 Telephone [facility] [address] [facility] [address] [place] [address] Social History Date Tobacco Use Types Packs/Day Years Used 09/21/2008 - 10/10/2009 Former Smoker Cigarettes 0.4 1 Smokeless Tobacco: Never Used Comments: smoked on/off for 2 years between ages [age]. Alcohol Use Drinks/Week oz/Week Comments Yes 2-3 Standard 1.2 - 1.8 socially drinks or equivalent Sex Assigned at Date Recorded Not on file Industry Job Start Date Occupation Not on file Not on file Not on file Travel End Travel History Travel Start No recent travel history available. documented as of this encounter Functional Status Date of Assessment Functional Status Response 05/27/2018 Does the patient have a hearing impairment: No documented as of this encounter Miscellaneous Notes * Telephone Encounter - Lindy Sanchez - 12/16/2018 3:23 PM CDT Spoke to pt and scheduled appt on 12/29/18 at 11AM w/ Dr. Garza. * Telephone Encounter - Lindy Sanchez - 12/10/2018 8:43 AM CDT LVM for pt to call FM to reschedule her appt. * Telephone Encounter - Sarah Montes De Oca - 12/10/2018 8:23 AM CDT Pt. requesting to cancel and reschedule her appointment today. LVM [id number] documented in this encounter Plan of Treatment Not on filedocumented as of this encounter Visit Diagnoses Not on filedocumented in this encounter
--- OUTSIDE RECORDS SUMMARY | 2019-01-13 09:51 | XMS REPORT | Encounter Summary ---
Author Author [facility] Organization [facility] Address Unknown Phone Unavailable Care Team Providers Care Enrollment Clerk Name Role Phone Gopi Julian MD Unavailable Unavailable Artie Vela MD Unavailable Raysa Horton MD Unavailable Unavailable Janel Lozada MD PCP Unavailable Janel Lozada MD 100 Unavailable Reason for Visit * Reason Comments Medication Refill Encounter Details Care Team Description Date Type Department Janel Lozada MD [address] [place] [address] 01/04/2019 Refill [facility] [address] [facility] [address] [place] [id number] Social History Date Tobacco Use Types Packs/Day [...] encounter Miscellaneous Notes * Telephone Encounter - Lety Lees - 01/04/2019 2:14 PM CDT Refill for Proair sent to the pharmacy via e-scribe documented in this encounter Plan of Treatment Not on filedocumented as of this encounter Visit Diagnoses Not on filedocumented in this encounter
--- OUTSIDE RECORDS SUMMARY | 2019-01-13 09:51 | XMS REPORT | Encounter Summary ---
Author Author [facility] Organization [facility] Address Unknown Phone Unavailable Care Team Providers Care Fitting Room Checker Name Role Phone Gopi Julian MD Unavailable Unavailable Artie Vela MD Unavailable Raysa Horton MD Unavailable Unavailable Janel Lozada MD PCP Unavailable Janel Lozada MD 100 Unavailable Encounter Details Care Team Description Date Type Department Janel Lozada MD [address] [place] [address] 11/23/2018 Hospital [facility] Encounter [facility] [address] [address] Social History Date Tobacco Use Types Packs/Day [...] impairment: No documented as of this encounter Medications at Time of Discharge Start Date End Date Medication Sig Dispensed Refills 06/21/2018 apixaban (ELIQUIS) 5 mg Take one 30 tablet 6 tablet tablet by mouth twice daily. Restart 05/29/2018 11/23/2018 benzonatate (TESSALON) Take one 30 capsule 1 200 mg capsule capsule by mouth every 8 hours as needed for Cough. 05/27/2018 calcium citrate Please take 84 tablet 0 (CALCITRATE) 950 mg tab your calcium medication taper as follows: Two (2) tabs by mouth three (3) times daily for one (1) week, then Two (2) tabs by mouth two (2) times daily for one (1) week, then Two (2) tabs by mouth one (1) time daily for one (1) week then STOP. cetirizine (ZYRTEC) 10 mg Take 10 mg by 0 tablet mouth daily. 06/21/2018 diltiazem CD (CARTIA XT) Take one 90 capsule 1 180 mg capsule capsule by mouth daily. 06/21/2018 fluoxetine (PROZAC) 20 mg Take one 90 capsule 3 capsule capsule by mouth daily. 06/21/2018 fluticasone (FLONASE) 50 Apply two 48 g 6 mcg/actuation nasal spray sprays to each nostril as directed twice daily. 11/03/2018 fluticasone/salmeterol Inhale one 3 Inhaler 3 (ADVAIR DISKUS) 500-50 puff by mouth mcg inhalation into the diskIndications: Asthma lungs every 12 hours. HERBAL DRUGS PO Take by 0 mouth. Prevagen memory support ipratropium bromide Inhale 2 0 (ATROVENT HFA) 17 puffs by mcg/actuation inhaler mouth into the lungs daily. 06/28/2018 levothyroxine (SYNTHROID) Take one 90 tablet 3 125 mcg tablet tablet by mouth daily 30 minutes before breakfast. 05/27/2018 meloxicam (MOBIC) 7.5 mg Take one 90 tablet 3 tablet tablet by mouth daily. 02/24/2018 metFORMIN (GLUCOPHAGE) Take 1 tablet 180 tablet 3 500 mg tablet by mouth twice daily with meals. 06/21/2018 metoprolol XL (TOPROL XL) Take one 90 tablet 3 100 mg extended release tablet by tablet mouth daily. 06/21/2018 01/04/2019 albuterol (PROAIR HFA, Inhale two 1 Inhaler 2 VENTOLIN HFA, OR puffs by PROVENTIL HFA) 90 mouth into mcg/actuation inhaler the lungs every 6 hours as needed. Need appt for additional refills documented as of this encounter Plan of Treatment Not on filedocumented as of this encounter Procedures Comments Procedure Name Priority Date/Time Associated Diagnosis THYROID STIMULATING Routine 11/23/2018 Hypothyroidism (acquired) HORMONE-TSH 2:41 PM GARAGE DOOR INSTALLER FREE T4 (FREE THYROXINE) Routine 11/23/2018 Hypothyroidism (acquired) ONLY 2:41 PM GARAGE DOOR INSTALLER documented in this encounter Results * FREE T4 (FREE THYROXINE) ONLY (11/23/2018 2:41 PM GARAGE DOOR INSTALLER) T4-Free 0.8 0.6 - 1.6 NG/DL [facility] Specimen Blood Performing Organization Address [facility] [address] [place] [address] * THYROID STIMULATING HORMONE-TSH (11/23/2018 2:41 PM GARAGE DOOR INSTALLER) TSH 0.200 (L) 0.35 - 5.00 [facility] MAIN [facility] Specimen Blood Performing Organization Address [facility] [address] [place] [address] documented in this encounter Visit Diagnoses Diagnosis Hypothyroidism (acquired) Unspecified hypothyroidism Post-operative hypothyroidism Postsurgical hypothyroidism documented in this encounter
--- OUTSIDE RECORDS SUMMARY | 2019-01-13 09:51 | XMS REPORT | Encounter Summary ---
Author Author [facility] Organization [facility] Address Unknown Phone Unavailable Care Team Providers Care Fish Worm Grower Name Role Phone Gopi Julian MD Unavailable Unavailable Artie Vela MD Unavailable Raysa Horton MD Unavailable Unavailable Janel Lozada MD PCP Unavailable Janel Lozada MD 100 Unavailable Encounter Details Care Team Description Date Type Department Elgin Garza MD [address] Ortho[facility] L[address] [place] [address] Disorder of the skin and subcutaneous tissue, unspecified 12/29/2018 Hospital [facility] Encounter [facility] [address] [address] Social History Date Tobacco Use Types Packs/Day [...] Diagnosis SURGICAL PATHOLOGY 12/29/2018 2:03 PM CDT documented in this encounter Results * SURGICAL PATHOLOGY (12/29/2018 2:03 PM CDT) PATHOLOGY [email or web address] Department of Pathology and Laboratory Medicine [address] [place] [address] Surgical Pathology Office:[phone] :[phone] SURGICAL PATHOLOGY REPORT NAME: BRITTANIE BARRON SURG PATH #: [id number] MR #: [id number] SPECIMEN CLASS: SR BILLING #: [id number] ALT ID #:LOCATION: [facility] DATE OF PROCEDURE: 12/29/2018 AGE:53 SEX: [...] in A1. (ab) ab/12/29/2018 Performing Organization Address City/State/Zipcode Phone Number [facility] [address] [place] [address] documented in this encounter Visit Diagnoses Not on filedocumented in this encounter
--- OUTSIDE RECORDS SUMMARY | 2019-01-13 09:51 | XMS REPORT | Encounter Summary ---
Author Author [facility] Organization [facility] Address Unknown Phone Unavailable Care Team Providers Care Loom Fixer Helper Name Role Phone Gopi Julian MD Unavailable Unavailable Artie Vela MD Unavailable Raysa Horton MD Unavailable Unavailable Janel Lozada MD PCP Unavailable Janel Lozada MD 100 Unavailable Reason for Visit * Reason Comments Procedure Encounter Details Care Team Description Date Type Department Brayan Garza MD [address] Ortho[facility]Med [facility] [address] [place] [address] [phone] Skin lesion (Primary Dx) 12/29/2018 Procedure visit [facility] [address] [place] [id number] Social History Date Tobacco Use Types Packs/Day [...] history available. documented as of this encounter Last Filed Vital Signs Time Taken Vital Sign Reading 12/29/2018 11:59 AM CDT Blood Pressure 151/92 12/29/2018 11:59 AM CDT Pulse 70 12/29/2018 11:24 AM CDT Temperature 36.8 C (98.2 F) 12/29/2018 11:24 AM CDT Respiratory Rate 16 - Oxygen Saturation - - Inhaled Oxygen - Concentration 12/29/2018 11:24 AM CDT Weight 89.8 kg (198 lb) 12/29/2018 11:24 AM CDT Height 157.5 cm (5' 2") 12/29/2018 11:24 AM CDT Body Mass Index 36.21 documented in this encounter Functional Status Date of Assessment Functional Status Response 05/27/2018 Does the patient have a hearing impairment: No documented as of this encounter Progress Notes * Brayan Garza MD - 12/29/2018 11:00 AM CDT ATTESTATION I was present during the entire procedure performed by Dr Alexandre and agree with his documentation. Staff name: Brayan Garza MD documented in this encounter Procedure Notes * Adrian Alexandre MD - 12/29/2018 11:00 AM CDT Associated Order(s): SKIN BIOPSY Pre-Procedure Diagnose(s): Skin lesion Shave Biopsy Procedure Note Pre-operative Diagnosis: Suspicious lesion Post-operative Diagnosis: same Locations:Right lower abdomen Indications: desire for biospy Anesthesia: Lidocaine 1% with epinephrine without added sodium bicarbonate Procedure Details History of allergy to iodine: no The risks (including bleeding and infection) and benefits of the procedure and written informed consent obtained. The lesion and surrounding area was given a sterile prep using chlorhexidine in the usual sterile fashion. A blade was used to shave an area of skin approximately 1cm by 1cm. Hemostasis achieved with electrodesiccation. Sterile ointment and a sterile dressing applied. The specimen was sent for pathologic examination. The patient tolerated the procedure well. EBL: minimal Condition: Stable Complications: none. Plan: 1. Instructed to keep the wound dry and covered for 24-48h and clean thereafter. 2. Warning signs of infection were reviewed. Procedure supervised by Adrian Flores MD Family Medicine, PGY3 documented in this encounter Plan of Treatment Order Schedule Name Priority Associated Diagnoses Ordered: 12/29/2018 HP SHAVE BIOPSY Routine Skin lesion Expected: 12/29/2018, Expires: 12/30/2019 PATHOLOGY SURGICAL < 5 SPECIMENS Routine Skin lesion Ordered: 12/29/2018 SKIN BIOPSY Routine Skin lesion documented as of this encounter Visit Diagnoses Diagnosis Skin lesion - Primary Unspecified disorder of skin and subcutaneous tissue documented in this encounter
--- OUTSIDE RECORDS SUMMARY | 2019-01-13 09:56 | XMS REPORT ---
Author Author Migration, Doctor Organization [facility] Address Unknown Phone Unavailable Care Team Providers Care Licensed Mortician Name Role Phone Migration, Doctor Unavailable Unavailable PROBLEMS Type Condition ICD9-CM Code DRL33-ZN Code Onset Dates Condition Status SNOMED Code Problem Primary osteoarthritis, left ankle and foot M19.072 Active 39398021 Problem Right wrist effusion M25.431 Active 599016999 Problem Arthritis of both hips M12.9 Active 74701026 Problem Chronic obstructive pulmonary disease, unspecified J44.9 Active 984289215 Problem Depressive disorder, not elsewhere classified F32.9 Active 26696122 Problem Essential hypertension I10 Active 78312784 Problem Hyperthyroidism E05.90 Active 28248706 Problem Atrial fibrillation, unspecified type I48.91 Active 14113751 Problem COPD exacerbation J44.1 Active 957691099 Problem H/O breast augmentation Z98.82 Active 602221791 Problem Chronic sinusitis of both maxillary sinuses J32.0 Active [id number] Problem History of breast augmentation Z98.82 Active 118970675 Problem Enlarged thyroid E01.0 Active 59271773 Problem Moderate persistent asthma with exacerbation J45.41 Active 556313020 Problem Rosacea L71.9 Active 297565268 Problem Primary osteoarthritis of right foot M19.071 Active 959112180 Problem Chronic sinusitis, unspecified location J32.9 Active 83430050 Problem Severe persistent asthma with exacerbation J45.51 Active 044541241 Problem Atelectasis J98.11 Active 22887502 Problem Decreased hearing of left ear H91.92 Active 276978889 ALLERGIES No Information ENCOUNTERS Encounter Location Date Diagnosis [facility] [id number] [place] [id number] Nov, [facility] [id number] [place] [address] Nov, Conjunctivitis of both eyes, unspecified conjunctivitis type H10.9 and Abscess L02.91 [facility] [id number], [place] [address] Nov, Abscess L02.91 and Conjunctivitis of both eyes, unspecified conjunctivitis type H10.[address] [facility] [address] [id number][place] [address] Jun, Fluid level behind tympanic membrane of both ears H65.[address] [facility] [address] [id number], [place] [address]39[address] Jun, Moderate persistent asthma with exacerbation J45.41 [facility] [address] [id number], [place] [id number] May, [facility] [address] [id number][place] [id number] Apr, [facility] [address] [id number][place] [address] Mar, [facility] [address] [id number], [place] [id number] Mar, Dental examination Z01.[address] [facility] [address] [id number], [place] [id number] Feb, [facility] [address] [id number], [place] 68086[address] Feb, [facility] [address] [id number], [place] [id number] Feb, [facility] [address] [id number], [place] [address]230[address] Feb, [facility] [address] [id number], [place] [address] January, [facility] [address] [id number], [place] 8[address] January, Breast tenderness in female N64.4 ; Atypical chest pain R07.89 and History of breast augmentation Z98.82 [facility] [address] [id number], [place] [address] Dec, Jaw pain R68.84 [facility] [id number] [place] [address] [id number] Dec, [address] [id number], [place] [address]24[address]99 Dec, Chronic sinusitis, unspecified location J32.9 ; Swelling of left side of face R22.0 and Decreased hearing of left ear H91.92 [facility] [address] [place] [address] AVE [id number], [place] [id number] Nov, Dental examination Z01.20 [address]00565100[place], [place] [address] Nov, Chronic obstructive pulmonary disease, unspecified J44.[address] [place] [address] [id number] Oct, Chronic obstructive pulmonary disease, unspecified J44.[address] [id number], [place] [address] Sep, [facility] [address] [id number], [place] [address] Sep, [address] [id number], [place] 143299320 Sep, Atelectasis J98.11 and Severe persistent asthma with exacerbation J45.51 [address]00565100[place], [place] [address] Sep, [address]00565100[place], [place] [address] Sep, Cough R05 ; Shortness of breath R06.02 ; Low oxygen saturation R79.81 ; Wheezing R06.2 ; Decreased breath sounds at right lung base R09.89 ; Fever, unspecified fever cause R50.9 and COPD exacerbation J44.[address] [id number], [place] 606344167 Aug, Chronic sinusitis, unspecified location J32.9 and Acute mucoid otitis media of left ear H65.112 [address]00565100[place], [place] [address] Aug, Medial epicondylitis of left elbow M77.02 ; Chronic sinusitis of both maxillary sinuses J32.0 and History of sinus surgery Z98.890 [facility] [id number] [place] [address] [id number] Jul, [place] [id number] [place] [address] [id number] Jul, [address] [place] [address] [id number] Jul, Atrial fibrillation, unspecified type I48.91 ; Enlarged thyroid E01.0 ; Hyperthyroidism E05.90 and Pre-diabetes R73.03 [facility] [address] [place] [address] [id number] Jul, Elevated blood sugar R73.9 [place] [id number] [place] [address] [id number] Jul, Atrial fibrillation, unspecified type I48.91 and Hyperthyroidism E05.90 [facility] [address]00565100[place], [place] [address]- [address] Jul, Atrial fibrillation, unspecified type I48.91 and Hyperthyroidism E05.90 [address] [place] [address] [id number] Jun, Acute recurrent frontal sinusitis J01.11 [address] [place] [address] [id number] Jun, [place] [id number] [place] [address] [id number] May, Screening breast examination Z12.31 and H/O breast augmentation Z98.82 [address] [place] [address] [id number] May, [address] [place] [address] [id number] May, Nasal polyp J33.9 and Acute non-recurrent frontal sinusitis J01.[address] [place] [address] [id number] May, COPD exacerbation J44.1 [place] [id number] [place] [address] [id number] Apr, [place] [id number] [place] [address] [id number] January, Enlarged thyroid E01.0 and COPD exacerbation J44.[address] [id number] January, Chronic obstructive pulmonary disease, unspecified J44.[address] [id number] Dec, [address] [id number] Dec, [address] [id number] Dec, Cough R05 ; Shortness of breath R06.02 ; Urinary frequency R35.0 and Chronic obstructive pulmonary disease, unspecified J44.[address] [id number] Nov, Bronchitis J40 and Cough R05 [address] [id number] Aug, Pain of left hand M79.642 ; Atrial fibrillation, unspecified type I48.91 and Screening for hyperlipidemia Z13.[address] [id number] Aug, [address] [id number] Aug, Pain of left foot M79.672 ; Pain in right foot M79.671 ; Pain of left hand M79.642 ; Pain in right hand M79.641 ; Screening for hyperlipidemia Z13.220 and Atrial fibrillation, unspecified type I48.91 [place] [id number] [place] [address] [id number] Jul, Rash R21 ; Arthritis of both hips M12.9 ; Depressive disorder, not elsewhere classified F32.9 ; Atrial fibrillation, unspecified type I48.91 ; Hyperthyroidism E05.90 and Chronic obstructive pulmonary disease, unspecified J44.9 [facility] [address] [id number]- 8992 Jun, [facility] [id number] [place] [address] Jun, Rosacea L71.9 [facility] [place] [address] [id number] Jun, Rosacea L71.9 and Oral herpes simplex infection B00.2 [facility] [address] [id number] Jun, Rash R21 [facility] [address] [id number] Jun, Asthma exacerbation J45.901 [facility] [address] [id number] Apr, [facility] [address] [id number] Apr, Acute diffuse otitis externa of right ear H60.311 and Rash R21 [facility] [address] [address] Feb, Rash R21 [facility] [address] [address] Feb, [facility] [address] [id number] January, Hyperthyroidism E05.90 [facility] [id number] [place] [address] [id number] January, Atrial fibrillation, unspecified type I48.91 and Hyperthyroidism E05.90 [facility] [id number] [place] [address]- 8276 January, [facility] [id number] [place] [address] [id number] January, Atrial fibrillation, unspecified type I48.91 [facility] [place] [id number] [place] [address] [id number] Dec, Asthma exacerbation J45.901 [facility] [id number] [place] [address] [id number] Dec, [facility] [address] [id number] Oct, Acute maxillary sinusitis, recurrence not specified J01.00 and Acute cystitis with hematuria N30.01 [facility] [id number] [place] [address] [id number] Oct, Sinusitis J32.9 [facility] [id number] [place] [address] [id number] Sep, Chronic obstructive pulmonary disease, unspecified J44.9 ; Depressive disorder, not elsewhere classified F32.9 ; Arthritis of both hips M12.9 and Essential hypertension I[address] [facility] [id number][place] [id number] Sep, [place] [id number] [place] [address] [id number] Sep, [place] [id number] [place] [address] [id number] Sep, Right hip pain M25.551 [facility] [id number] [place] [address] [id number] Sep, [place] [id number] [place] [address] [id number] Sep, [place] [id number] [place] [address] [id number] Sep, Hemoptysis R04.2 ; Pain in right hip M25.551 and Pain in left hip M25.552 [address] [place] [address] [id number] Aug, [place] [id number] [place] [address] [id number] Aug, Sinusitis J32.9 ; Cough R05 and Wheezing R06.2 [facility] [id number] [place] [address] [id number] May, [facility] [id number] [place] [address] [id number] May, [address] [place] [address] [id number] May, [place] [id number] [place] [address] [id number] Apr, Chronic airway obstruction, not elsewhere classified [address] [place] [address] [id number] Apr, [place] [id number] [place] [address] [id number] Apr, Bronchitis, chronic obstructive, with exacerbation 491.21 [place] [id number] [place] [address] [id number] Mar, [place] [id number] [place] [address] [id number] Mar, Asthma, unspecified, with (acute) exacerbation 493.92 and Rhinitis 472.0 [place] [id number] [place] [address] [id number] Feb, [address] [place] [address] [id number] Feb, [place] [id number] [place] [address] [id number] Feb, Pituitary incidentaloma 227.3 and Abnormal MRI of the head 793.0 [place] [id number] [place] [address] [id number] Feb, [place] [id number] [place] [address] [id number] January, Muscle weakness of lower extremity 728.87 ; Abnormal involuntary movements 781.0 ; Unspecified otitis media 382.9 and Other general symptoms 780.[address] [place] [address] [id number] January, Acute sinusitis, unspecified 461.9 and Muscle weakness of lower extremity 728.[address] [place] [address] [id number] January, Bronchitis 490 and Cough 786.2 [facility] [address] [facility] [id number] [place] [id number] Dec, [id number] [place] [address] [id number] Dec, [place] [id number] [place] [address] [id number] Dec, [facility] [place] [facility] [address] [facility] [id number], [place] [address]- 8[address] 14 Dec, 2014 [facility] [place] [facility] [address] [facility] [id number], [place] [address]- 1553 Dec, [facility] [place] [facility] [address] [facility] [id number], [place] [address]- 4567 Oct, 2014 [facility] [place] [facility] [address] [facility] [id number], [place] [address]- 9837 Oct, 2014 [facility] [place] [facility] [address] [facility] [id number] [place] [address]- 0729 Oct, 2014 [facility] [place] [facility] [address] [facility] [id number] [place] [address]- 5738 Oct, 2014 [facility] [place] [facility] [address] [facility] [id number], [place] [address]- 7134 Oct, 2014 [facility] [place] [facility] [address] [facility] [id number], [place] [address]- 0052 Oct, 2014 [facility] [place] [facility] [address] [facility] [id number], [place] [address]- 8570 Oct, 2014 [facility] [address] [id number], [place] [id number] Oct, [facility] [place] [facility] [address] [facility] [id number], [place] [address]- 6288 Oct, 2014 [facility] [place] [facility] [address] [facility] [id number], [place] [address]- 9066 Oct, [facility] [place] [facility] [address] [facility] [id number], [place] [address]- 5201 Oct, [facility] [address] [id number], [place] [id number] Aug, [facility] [place] [facility] [address] [facility] [id number], [place] [address]- 7596 Aug, [facility] [address] [place] [id number], [place] [id number] Jul, [facility] [place] [facility] [address] [facility] [id number], [place] [address]- 7946 Jul, [facility] [place] [facility] [address] [facility] [id number], [place] [address]- 8246 Jun, [facility] [address] [facility] [id number] [place] [id number] Jun, [facility] [place] [facility] [address] [facility] [id number], [place] [address]- 8713 Jun, [facility] [address] [facility] [id number] [place] [id number] Jun, [facility] [place] [facility] [address] [facility] [id number], [place] [address]- 6718 Jun, [facility] [address] [facility] [id number], [place] [id number] May, [facility] [place] [facility] [address] [facility] [id number], [place] [address]- 0795 May, [facility] [address] [facility] [id number], [place] [id number] May, [facility] [place] [facility] [address] [facility] [id number], [place] [address]- 3487 May, [facility] [address] [facility] [id number], [place] [id number] May, [facility] [place] [facility] [address] [facility] [id number], [place] [address]- 1866 May, [facility] [place] [facility] [address] [facility] [id number], [place] [address]- 9100 Mar, [facility] [place] [facility] [address] [facility] [id number], [place] [address]- 1707 Mar, [facility] [address] [facility] [id number], [place] [id number] January, [facility] [place] [facility] [address] [facility] [id number], [place] [address]- 7720 January, [facility] [address] [id number], [place] 995141963 Oct, [facility] [address] [facility] [id number] [place] [address]- 7616 Oct, [facility] [address] [facility] [id number] [place] [address]- 9863 Jul, [facility] [place] [facility] [address] [id number] [place] [address]- 8440 Jun, [facility] [address] [id number] [place] [address]- 0175 Jun, [facility] [place] [facility] [address] [id number] [place] [address]- 6388 May, [facility] [address] [place] [address] [id number]- 5758 May, [facility] [address] [place] [id number] [place] [address]- 5682 Apr, [facility] [address] [place] [id number] [place] [address]- 8404 Apr, [facility] [address] [id number], [place] [address]- 8131 Mar, [facility] [place] [facility] [address] [place] [id number] [place] [address]- 7060 Feb, [facility] [place] [facility] [address] [id number], [place] [address]- 6599 Nov, [facility] [place] [facility] [address] [facility] [id number] [place] [address]- 8721 Oct, [facility] [place] [facility] [address] [facility] [id number], [place] [address]- 9850 Oct, [facility] [place] [facility] [address] [id number], [place] 5546[place]- 3737 Oct, [facility] [place] [facility] [address]00565100[place], [place] [address] 2546 Oct, [facility] [place] [facility] [address] [id number] [place] [address]- 2546 Oct, [facility] [place] [facility] [address] [id number] [place] [address]- 2546 Sep, [facility] [place] [facility] [address] [id number] [place] [address]- 2546 Sep, [facility] [place] [facility] [address] [id number] [place] [address]- 2546 Jul, [facility] [place] [facility] [address] [id number] [place] [address]- 6216 Jul, [facility] [place] [facility] [address] [id number] [place] [address]- 2546 May, [facility] [address] [id number] [place] [address]- 3326 06 May, 2012 [facility] [address] [place] [address] [id number], [place] [id number] 05 May, 2012 [facility] [address] [id number] [place] [address]- 4536 May, [facility] [place] [facility] [address] [id number] [place] [address]- 2546 May, [facility] [place] [facility] [address] [id number], [place] [address]- 2546 May, [facility] [place] [facility] [address] [id number], [place] [address]- 2546 Apr, [facility] [place] [facility] [address] [id number] [place] [address]- 2546 Apr, [facility] [place] [facility] [address] [id number] [place] [address]- 2546 Apr, [facility] [place] [facility] [address] [id number] [place] [address]- 2546 Mar, [facility] [place] [facility] [address] [id number] [place] [address]- 2546 Mar, [facility] [address] [id number] [place] [address]- 2546 Mar, [facility] [place] [facility] [address] [id number] [place] [address]- 2546 Mar, [facility] [address] [id number] [place] [address]- 2546 Feb, [facility] [place] [facility] [address] [id number], [place] [id number] Feb, [facility] [place] [facility] [address] [id number] [place] [address]- 2546 Feb, [facility] [place] [facility] [address] [id number], [place] 6260616[address] Feb, [facility] [place] [facility] [address] [id number], [place] [address]- 2546 Feb, [facility] [address] [id number], [place] [address]- 2546 Feb, [facility] [address] [id number], [place] [id number] January, [facility] [address] [id number], [place] [address]- 2546 January, [facility] [place] [facility] [address] [id number], [place] 011644679 January, [facility] [place] [facility] [address] [id number], [place] [address]- 2546 January, [facility] [place] [facility] [address] [id number], [place] 530831391 January, [facility] [place] [facility] [address] [id number] [place] [address]- 2546 January, [facility] [place] [facility] [address] [id number] [place] [address]- 2546 January, [facility] [place] [facility] [address] [id number], [place] [address]- 2546 January, [facility] [address] [facility] [id number], [place] [address]- 0226 Dec, [facility] [address] [facility] [id number], [place] [address]- 5746 Dec, [facility] [address] [facility] [id number], [place] [address]- 8666 Dec, [facility] [address] [facility] [id number], [place] [address]- 3006 Dec, [facility] [address] [facility] [id number], [place] [address]- 7446 Dec, [facility] [address] [facility] [id number], [place] [id number] Dec, [facility] [address]00565100[place], [place] [address]- 1516 Nov, [facility] [address] [facility] [id number], [place] [address] Nov, [facility] [id number], [place] [address] Nov, [facility] [id number] [id number] Oct, [facility] [id number] [id number] Oct, [facility] [address] [facility] [id number], [place] [address] Oct, [facility] [address] [id number][place] [id number] Sep, [facility] [place] [facility] [address] [facility] [id number], [place] [address] Sep, [facility] [address] [id number][place] [id number] Sep, [facility] [address] [id number][place] [id number] Sep, [facility] [address] [id number] [place] [address] Aug, [facility] [address] [id number] [place] [address] Aug, [facility] [address] [id number] [place] [address] Aug, [facility] [place] [facility] [address] [id number] [place] [address] Aug, [facility] [address] [id number] [place] [address] Jul, [facility] [place] [facility] [address] [id number] [place] [address] Jul, [facility] [address] [facility] [id number] [place] [address] May, [facility] [address] [id number] [place] [address] January, [facility] [address] [facility] [id number], [place] [address] Dec, [facility] [place] [facility] [address] [id number], [place] [address] Nov, [facility] [address] [id number], [place] [address] Aug, [facility] [place] [facility] [address] [id number], [place] [address] Aug, [facility] [place] [facility] [address] [id number], [place] [address] Aug, [facility] [place] [facility] [address] [id number][place] [address] Aug, [facility] [place] [facility] [address] [facility] [id number], [place] [address] Aug, [facility] [place] [facility] [address] [id number] [id number] Aug, [facility] [address] [id number], [place] [address] Jun, [facility] [id number], [place] [address] Jun, [facility] [id number], [place] [address] Jun, [facility] [id number], [place] [address] Jun, [facility] [id number] [address] Jun, [facility] [id number], [place] [address] May, [facility] [id number], [place] [address] 10 May, 2010 IMMUNIZATIONS No Known Immunizations SOCIAL HISTORY Never Assessed REASON FOR VISIT EMR-[facility] [place]AN OF CARE VITAL SIGNS MEDICATIONS Unknown [...] normal EF, small PFO Medical History A-fib/RVR Medical History Pre-diabetic Medical History flu vaccine Surgical History sinus surgery x 4 due to polyps 1989- 2002 Surgical History breast augmentation 2004 Surgical History tubal ligation 2003 Surgical History section 1993, 1996, 2002 Surgical History tummy tuck 2002 Surgical History Sinus Surgery 2017 Surgical History [facility] Thyroid removal 05/26/2018 Hospitalization History childbirth, surgeries Hospitalization History [facility] Afib w/ RVR, HTN, COPD 01/24/16 Hospitalization History A Fib February 2016
--- OUTSIDE RECORDS SUMMARY | 2019-01-13 09:56 | XMS REPORT ---
Author Author Migration, Doctor Organization [facility] Address Unknown Phone Unavailable Care Team Providers Care Newspaper Or Periodical Editor Name Role Phone Migration, Doctor Unavailable Unavailable PROBLEMS Type Condition ICD9-CM Code HVE22-RS Code Onset Dates Condition Status SNOMED Code Problem Primary osteoarthritis, left ankle and foot M19.072 Active 48654439 Problem Right wrist effusion M25.431 Active 922560548 Problem Arthritis of both hips M12.9 Active 15227597 Problem Chronic obstructive pulmonary disease, unspecified J44.9 Active 028015811 Problem Depressive disorder, not elsewhere classified F32.9 Active 32424304 Problem Essential hypertension I10 Active 78197603 Problem Hyperthyroidism E05.90 Active 75245803 Problem Atrial fibrillation, unspecified type I48.91 Active 91694954 Problem COPD exacerbation J44.1 Active 289855739 Problem H/O breast augmentation Z98.82 Active 424923843 Problem Chronic sinusitis of both maxillary sinuses J32.0 Active [id number] Problem History of breast augmentation Z98.82 Active 336508009 Problem Enlarged thyroid E01.0 Active 78623245 Problem Moderate persistent asthma with exacerbation J45.41 Active 885497995 Problem Rosacea L71.9 Active 781381205 Problem Primary osteoarthritis of right foot M19.071 Active 403843956 Problem Chronic sinusitis, unspecified location J32.9 Active 38967217 Problem Severe persistent asthma with exacerbation J45.51 Active 216207699 Problem Atelectasis J98.11 Active 06623897 Problem Decreased hearing of left ear H91.92 Active 771833657 ALLERGIES No Information ENCOUNTERS Encounter Location Date Diagnosis [email or web address] [address] [id number] [id number] Dec, Asthma exacerbation J45.901 [email or web address] [address] [id number][place] [id number] Nov, [email or web address] [address] [id number][place] [id number] Nov, Conjunctivitis of both eyes, unspecified conjunctivitis type H10.9 and Abscess L02.[address] [facility] [address] [id number], [place] [id number] Nov, Abscess L02.91 and Conjunctivitis of both eyes, unspecified conjunctivitis type H10.[address] [facility] [address] [id number][place] [id number] Jun, Fluid level behind tympanic membrane of both ears H65.[address] [facility] [address] [id number][place] [address] Jun, Moderate persistent asthma with exacerbation J45.41 [facility] [id number] [place] [address] [id number] May, [facility] [address] [id number], [place] [id number] Apr, [facility] [id number] [place] [address] [id number] Mar, [facility] [address] [id number], [place] [id number] Mar, Dental examination Z01.20 [facility] [address] [id number], [place] [id number] Feb, [facility] [address] [id number], [place] [id number] Feb, [facility] [address] [id number], [place] [id number] Feb, [facility] [address] [id number], [place] [id number] Feb, [facility] [id number] [place] [address] [id number] January, [facility] [address] [id number] [place] [address] [id number] January, Breast tenderness in female N64.4 ; Atypical chest pain R07.89 and History of breast augmentation Z98.82 [facility] [id number] [place] [address] [id number] Dec, Jaw pain R68.84 [address]00565100[place] [id number] Dec, [place] [id number] [place] [address] [id number] Dec, Chronic sinusitis, unspecified location J32.9 ; Swelling of left side of face R22.0 and Decreased hearing of left ear H91.92 [facility] [address] [id number], [place] [id number] Nov, Dental examination Z01.20 [address]65100[place] [id number] Nov, Chronic obstructive pulmonary disease, unspecified J44.9 [address] [place] [address] [id number] Oct, Chronic obstructive pulmonary disease, unspecified J44.9 [facility] [address] [id number], [place] [id number] Sep, [facility] [address] [id number], [place] [address] Sep, [place] [id number] [place] [address] [id number] Sep, Atelectasis J98.11 and Severe persistent asthma with exacerbation J45.51 [place] [id number] [place] [address] [id number] Sep, [address]005[address]100[place] [id number] Sep, Cough R05 ; Shortness of breath R06.02 ; Low oxygen saturation R79.81 ; Wheezing R06.2 ; Decreased breath sounds at right lung base R09.89 ; Fever, unspecified fever cause R50.9 and COPD exacerbation J44.1 [facility] [address] [address] [id number] [facility] [address] [id number], [place] [id number] Aug, Chronic sinusitis, unspecified location J32.9 and Acute mucoid otitis media of left ear H65.112 [address] [place] [address] [id number] Aug, Medial epicondylitis of left elbow M77.02 ; Chronic sinusitis of both maxillary sinuses J32.0 and History of sinus surgery Z98.890 [address] [place] [address] [id number] Jul, [place] [id number] [place] [address] [id number] Jul, [place] [id number] [place] [address] [id number] Jul, Atrial fibrillation, unspecified type I48.91 ; Enlarged thyroid E01.0 ; Hyperthyroidism E05.90 and Pre-diabetes R73.03 [place] [id number] [place] [address] [id number] Jul, Elevated blood sugar R73.9 [place] [id number] [place] [address] [id number] Jul, Atrial fibrillation, unspecified type I48.91 and Hyperthyroidism E05.90 [facility] [address]00565100[place] [address]- [address] Jul, Atrial fibrillation, unspecified type I48.91 and Hyperthyroidism E05.90 [place] [id number] [place] [address] [id number] Jun, Acute recurrent frontal sinusitis J01.11 [id number] [place] [address] [id number] Jun, [place] [id number] [place] [address] [id number] May, Screening breast examination Z12.31 and H/O breast augmentation Z98.82 [place] [id number] [place] [address] [id number] May, [address] [id number] May, Nasal polyp J33.9 and Acute non-recurrent frontal sinusitis J01.[id number] [place] [address] [id number] May, COPD exacerbation J44.1 [id number] [place] [address] [id number] Apr, [address] [id number] January, Enlarged thyroid E01.0 and COPD exacerbation J44.1 [place] [id number] [place] [address] [id number] January, Chronic obstructive pulmonary disease, unspecified J44.9 [place] [id number] [place] [address] [id number] Dec, [address] [id number] Dec, [address] [id number] Dec, Cough R05 ; Shortness of breath R06.02 ; Urinary frequency R35.0 and Chronic obstructive pulmonary disease, unspecified J44.9 [place] [id number] [place] [address] [id number] Nov, Bronchitis J40 and Cough R05 [place] [id number] [place] [address] [id number] Aug, Pain of left hand M79.642 ; Atrial fibrillation, unspecified type I48.91 and Screening for hyperlipidemia Z13.220 [place] [id number] [place] [address] [id number] Aug, [place] [id number] [place] [address] [id number] Aug, Pain of left foot M79.672 ; Pain in right foot M79.671 ; Pain of left hand M79.642 ; Pain in right hand M79.641 ; Screening for hyperlipidemia Z13.220 and Atrial fibrillation, unspecified type I48.91 [place] [id number] [place] [address] [id number] Jul, Rash R21 ; Arthritis of both hips M12.9 ; Depressive disorder, not elsewhere classified F32.9 ; Atrial fibrillation, unspecified type I48.91 ; Hyperthyroidism E05.90 and Chronic obstructive pulmonary disease, unspecified J44.9 [facility] [id number] [place] [address] Jun, [facility] [address] 4536[address]- [address] Jun, Rosacea L71.9 [facility] [id number] [place] [address] [id number] Jun, Rosacea L71.9 and Oral herpes simplex infection B00.2 [facility] [address] [id number] Jun, Rash R21 [facility] [address] [id number] Jun, Asthma exacerbation J45.901 [facility] [address] [id number] Apr, [facility] [address] [id number] Apr, Acute diffuse otitis externa of right ear H60.311 and Rash R21 [facility] [id number] [place] [address]70 Feb, Rash R21 [facility] [address] [address] Feb, [facility] [id number] [place] [address] [id number] January, Hyperthyroidism E05.90 [facility] [address] [id number] January, Atrial fibrillation, unspecified type I48.91 and Hyperthyroidism E05.90 [facility] [id number] [place] [address] 402818- 1141 January, [facility] [id number] [place] [address] [id number] January, Atrial fibrillation, unspecified type I48.91 [facility] [id number] [place] [address] [id number] Dec, Asthma exacerbation J45.901 [facility] [id number], [place] [id number] Dec, [facility] [id number] [place] [address] [id number] Oct, Acute maxillary sinusitis, recurrence not specified J01.00 and Acute cystitis with hematuria N30.01 [facility] [id number], [place] [id number] Oct, Sinusitis J32.9 [facility] [id number] [place] [address] [id number] Sep, Chronic obstructive pulmonary disease, unspecified J44.9 ; Depressive disorder, not elsewhere classified F32.9 ; Arthritis of both hips M12.9 and Essential hypertension I10 [address]00565[place] [id number] Sep, [facility] [id number] [place] [address] [id number] Sep, [facility] [id number] [place] [address] [id number] Sep, Right hip pain M25.551 [facility] [id number] [place] [address] [id number] Sep, [facility] [id number] [place] [address] [id number] Sep, [facility] [id number] [place] [address] [id number] Sep, Hemoptysis R04.2 ; Pain in right hip M25.551 and Pain in left hip M25.552 [facility] [id number] [place] [address] [id number] Aug, [facility] [id number] [place] [address] [id number] Aug, Sinusitis J32.9 ; Cough R05 and [facility]zing R06.2 [facility] [address]65[address] [id number] May, [facility] [id number] [place] [address] [id number] May, [address]100[place], [place] [id number] May, [id number] [place] [address] [id number] Apr, Chronic airway obstruction, not elsewhere classified [address]65100[place] [id number] Apr, [place] [id number] [place] [address] [id number] Apr, Bronchitis, chronic obstructive, with exacerbation 491.21 [address] [place] [address] [id number] Mar, [place] [id number] [place] [address] [id number] Mar, Asthma, unspecified, with (acute) exacerbation 493.92 and Rhinitis 472.0 [place] [id number] [place] [address] [id number] Feb, [address] [place] [address] [id number] Feb, [address] [place] [address] [id number] Feb, Pituitary incidentaloma 227.3 and Abnormal MRI of the head 793.0 [id number] [place] [address] [id number] Feb, [address] [place] [address] [id number] January, Muscle weakness of lower extremity 728.87 ; Abnormal involuntary movements 781.0 ; Unspecified otitis media 382.9 and Other general symptoms 780.[address] [place] [address] [id number] January, Acute sinusitis, unspecified 461.9 and Muscle weakness of lower extremity 728.[id number] [place] [address] [id number] January, Bronchitis 490 and Cough 786.[address] [id number], [place] [id number] Dec, [place] [id number] [id number] 30 Dec, 2014 [facility] [address] [facility] [id number] [place] [id number] Dec, 2014 [facility] [place] [facility] [address] [facility] [id number], [place] [address]- 99[address] 14 Dec, 2014 [facility] [place] [facility] [address] [place] [address] [id number], [place] [address]- 0000 Dec, 2014 [facility] [place] [facility] [address] [facility] [id number] [place] [address]- 1955 Oct, 2014 [facility] [place] [facility] [address]00565100[place], [place] [address]- 8456 Oct, 2014 [facility] [place] [facility] [address] [place] [address] [id number] [place] [address]- 4533 Oct, 2014 [facility] [place] [facility] [id number] [place] [address]- 2863 Oct, 2014 [facility] [place] [facility] [address]00565100[place], [place] [address]- 4780 Oct, 2014 [facility] [place] [facility] [address]00565100[place], [place] [address]- 7623 Oct, 2014 [facility] [place] [facility] [address]00565100[place], [place] [address]- 8320 Oct, 2014 [facility] [address] [place] [address] [id number], [place] [id number] Oct, 2014 [facility] [place] [facility] [address] [place] [id number] [address]- 6756 Oct, [facility] [place] [facility] [address]00565100[place], [place] [address]- 0077 Oct, 2014 [facility] [place] [facility] [address]00565100[place], [place] [address]- 6[address] Oct, 2014 [facility] [address] [place] [address] [id number], [place] [id number] Aug, [facility] [place] [facility] [address] [facility] [id number], [place] [address]- 5580 Aug, [facility] [address] [facility] [id number] [place] [id number] Jul, [facility] [place] [facility] [address] [facility] [id number], [place] [address]- 9926 Jul, [facility] [place] [facility] [address] [facility] [id number], [place] [address]- 7216 Jun, [facility] [address] [facility] [id number], [place] [id number] Jun, [facility] [place] [facility] [address] [facility] [id number], [place] [address]- 3226 Jun, [facility] [address] [facility] [id number], [place] [id number] Jun, [facility] [place] [facility] [address]00565100[place], [place] [address]- 7106 Jun, [facility] [address] [place] [id number], [place] [id number] May, [facility] [place] [facility] [address] [facility] [id number][place] [address]- 8620 May, [facility] [address] [place] [address] [id number], [place] [id number] May, [facility] [place] [facility] [address] [facility] [id number], [place] [address]- 5516 May, [facility] [address] [facility] [id number], [place] [id number] May, [facility] [place] [facility] [address] [facility] [id number], [place] [address]- 9364 May, [facility] [place] [facility] [address] [facility] [id number], [place] [address]- 2156 Mar, [facility] [place] [facility] [address] [facility] [id number], [place] [address]- 0546 Mar, [facility] [address] [facility] [id number], [place] [id number] January, [facility] [address] [id number] [place] [address]- 7536 January, [facility] [address] [id number] [place] [id number] Oct, [facility] [address] [id number], [place] [address]- 1795 Oct, [facility] [place] [facility] [address] [id number] [place] [address]- 8939 Jul, [facility] [address] [id number] [place]- 5348 Jun, [facility] [place] [facility] [address] [id number] [place] [address]- 8977 Jun, [facility] [place] [facility] [address] [id number] [place] [address]- 8595 May, [facility] [place] [facility] [address] [id number], [place] [address]- 2092 May, [facility] [place] [facility] [address] [id number] [place] [address]- 2221 Apr, [facility] [place] [facility] [address] [id number][place] [address]- 4715 Apr, [facility] [place] [facility] [address] [id number], [place] [address]- 0389 Mar, [facility] [place] [facility] [address] [id number], [place] [address]- 8540 Feb, [facility] [place] [facility] [address] [id number] [place] [address]- 6449 Nov, [facility] [place] [facility] [address] [id number], [place] [address]- 7812 Oct, [facility] [place] [facility] [address] [id number], [place] [address]- 7361 Oct, [facility] [place] [facility] [address] [id number] [place] [address]- 0126 Oct, [facility] [address] [id number] [place] [address]- 2666 Oct, [facility] [address] [id number] [place] [address]- 8916 Oct, [facility] [address] [id number] [place] [address]- 9166 Sep, [facility] [address] [id number] [place] [address]- 3366 Sep, [facility] [address] [id number] [place] [address]- 8200 Jul, [facility] [address] [facility] [id number] [place] [address]- 3986 Jul, [facility] [address] [id number] [place] [address]- 6016 May, [facility] [address] [id number] [place] [address]- 0276 May, [facility] [address] [id number], [place] [id number] 05 May, 2012 [facility] [address] [id number] [place] [address]- 7236 May, [facility] [address] [id number] [place] [address]- 2716 May, 2011 [facility] [address] [id number] [address]- 2546 May, [facility] [address] [id number] [place] [address]- 5186 Apr, [facility] [address] [id number] [place] [address]- 0156 Apr, [facility] [address] [id number], [place] [address]- 9306 Apr, [facility] [address] [id number] [place] [address]- 2546 Mar, [facility] [address] [id number] [place] [address] 2546 Mar, [facility] [address] [id number] [place] [address]- 2546 Mar, [facility] [address] [id number] [place] [address]- 2546 Mar, [facility] [place] [facility] [address] [id number] [place] [address] 2546 Feb, [facility] [place] [facility] [address] [id number] [place] [id number] Feb, [facility] [place] [facility] [address] [id number] [place] [address]- 2036 Feb, [facility] [place] [facility] [address] [id number][place] [id number] Feb, [facility] [address] [id number], [place] [address] 2546 Feb, [facility] [address] [id number] [place] [address]- 2546 Feb, [facility] [address] [facility] [address] [id number][place] [id number] January, [facility] [place] [facility] [address] [id number] [place] [address]- 2546 January, [facility] [place] [facility] [address] [id number], [place] [id number] January, [facility] [place] [facility] [address] [id number] [place] [address] January, [facility] [place] [facility] [address] [id number] [place] [id number] January, [facility] [place] [facility] [address] [id number] [place] [id number] January, [facility] [place] [facility] [address] [id number] [place] [address] January, [facility] [address] [id number] [place] [address] January, [facility] [place] [facility] [address] [id number] [place] [address] Dec, [facility] [address] [id number] [place] [address] Dec, [facility] [place] [facility] [address] [id number] [place] [address] Dec, [facility] [place] [facility] [address] [id number] [place] [address] Dec, [facility] [address] [id number] [place] [address] Dec, [facility] [id number] [id number] Dec, [facility] [address] [id number], [place] [address] Nov, [facility] [place] [facility] [address] [id number] [place] [address] Nov, [facility] [address] [id number], [place] [address] Nov, [facility] [place] [facility] [address] [id number][place] [id number] Oct, [facility] [place] [facility] [id number] [id number] Oct, [facility] [place] [facility] [address] [id number] [place] [address] Oct, [facility] [id number] [id number] Sep, [facility] [place] [facility] [address] [id number], [place] [address] Sep, [facility] [address] [facility] [id number][place] [id number] Sep, [facility] [address] [id number] [place] [id number] Sep, [facility] [address] [id number] [place] [address] Aug, [facility] [address] [facility] [id number], [place] [address] Aug, [facility] [place] [facility] [address] [id number] [place] [address] Aug, [facility] [address] [id number] [place] [address] Aug, [facility] [place] [facility] [address] [facility] [id number] [place] [address] Jul, [facility] [address] [facility] [id number] [place] [address] Jul, [facility] [place] [facility] [address] [facility] [id number], [place] [address] May, [facility] [place] [facility] [address] [facility] [id number] [place] [address] January, [facility] [address] [facility] [id number], [place] [address] Dec, [facility] [place] [facility] [address] [id number] [place] [address] Nov, [facility] [place] [facility] [address] [id number], [place] [address] Aug, [facility] [place] [facility] [address] [id number] [place] [address] Aug, [facility] [place] [facility] [address] [facility] [id number], [place] [address] Aug, [facility] [place] [facility] [address] [facility] [id number], [place] [address] Aug, [facility] [address] [id number] [address] Aug, [facility] [address] [id number] [address] Aug, [facility] [id number] [address] Jun, [facility] [id number] [address] Jun, [facility] [id number] [address] Jun, [facility] [id number] [place] [id number] Jun, [facility] [id number] [address] Jun, [facility] [id number] [address] 14 May, 2010 [facility] [id number] [address] 10 May, 2010 IMMUNIZATIONS No Known Immunizations SOCIAL HISTORY Never Assessed REASON FOR VISIT [facility] PLAN OF CARE VITAL SIGNS MEDICATIONS No Known Medications RESULTS No Results PROCEDURES No Known [...]
--- OUTSIDE RECORDS SUMMARY | 2019-01-13 09:57 | XMS REPORT ---
Author Author BRITTNEY ROMERO Organization [facility] Address [address] [place] [address] Care Team Providers Care Wire Stitcher Name Role Phone BRITTNEY ROMERO Unavailable PROBLEMS Type Condition ICD9-CM Code EVO25-PZ Code Onset Dates Condition Status SNOMED Code Problem Enlarged thyroid E01.0 Active 66673820 Problem H/O breast augmentation Z98.82 Active 511548036 Problem COPD exacerbation J44.1 Active 346866618 Problem History of breast augmentation Z98.82 Active 553253836 Problem Decreased hearing of left ear H91.92 Active 359519042 Problem Chronic sinusitis, unspecified location J32.9 Active 58765206 Problem Chronic sinusitis of both maxillary sinuses J32.0 Active 21805160792662251 Problem Atelectasis J98.11 Active 19836679 Problem Severe persistent asthma with exacerbation J45.51 Active 990978889 Problem Primary osteoarthritis, left ankle and foot M19.072 Active 92325136 Problem Chronic obstructive pulmonary disease, unspecified J44.9 Active 002680808 Problem Primary osteoarthritis of right foot M19.071 Active 276799784 Problem Right wrist effusion M25.431 Active 520301462 Problem Arthritis of both hips M12.9 Active 24316925 Problem Hyperthyroidism E05.90 Active 01751023 Problem Essential hypertension I10 Active 46277440 Problem Atrial fibrillation, unspecified type I48.91 Active 17920643 Problem Depressive disorder, not elsewhere classified F32.9 Active 07164385 Problem Rosacea L71.9 Active 438093658 ALLERGIES No Information ENCOUNTERS Encounter Location Date Diagnosis [facility] [address] [facility] [place] [id number][place] [id number] May, [facility] [address] [id number][place] [id number] Apr, [address] [id number], [place] [id number] Mar, [facility] [address] [id number], [place] [id number] Mar, Dental examination Z01.[address] [id number] [place] [id number] Feb, [facility] [address] [id number][place] [id number] Feb, [facility] [address] [id number], [place] [id number] Feb, [facility] [address] [id number], [place] [id number] Feb, [facility] [address] [id number], [place] [id number] January, [facility] [address] [id number][place] [id number] January, Breast tenderness in female N64.4 ; Atypical chest pain R07.89 and History of breast augmentation Z98.82 [facility] [address] [id number], [place] [address] Dec, Jaw pain R68.84 [facility] [address] [id number], [place] [address] Dec, [facility] [address] [id number][place] [address] Dec, Chronic sinusitis, unspecified location J32.9 ; Swelling of left side of face R22.0 and Decreased hearing of left ear H91.92 [facility] [address] [id number], [place] [address] Nov, Dental examination Z01.20 [facility] [address] [id number], [place] [address] Nov, Chronic obstructive pulmonary disease, unspecified J44.9 [facility] [address] [id number], [place] [address] Oct, Chronic obstructive pulmonary disease, unspecified J44.9 [facility] [address] [id number], [place] [id number] Sep, [facility] [address] [place] [address] [id number], [place] [address] Sep, [facility] [address] [place] [address] [id number], [place] [id number] Sep, Atelectasis J98.11 and Severe persistent asthma with exacerbation J45.51 [place] [id number] [place] [address] [id number] Sep, [place] [address] [place] [address] 509462282 Sep, Cough R05 ; Shortness of breath R06.02 ; Low oxygen saturation R79.81 ; Wheezing R06.2 ; Decreased breath sounds at right lung base R09.89 ; Fever, unspecified fever cause R50.9 and COPD exacerbation J44.1 [facility] [address] [id number], [place] [address] Aug, Chronic sinusitis, unspecified location J32.9 and Acute mucoid otitis media of left ear H65.112 [place] [id number] [place] [address] [id number] Aug, Medial epicondylitis of left elbow M77.02 ; Chronic sinusitis of both maxillary sinuses J32.0 and History of sinus surgery Z98.[address] [place] [address] [id number] Jul, [place] [address] [place] [address] [id number] Jul, [address] [place] [address] [id number] Jul, Atrial fibrillation, unspecified type I48.91 ; Enlarged thyroid E01.0 ; Hyperthyroidism E05.90 and Pre-diabetes R73.03 [place] [address] [place] [address] [id number] Jul, Elevated blood sugar R73.9 [place] [address] [place] [address] [id number] Jul, Atrial fibrillation, unspecified type I48.91 and Hyperthyroidism E05.90 [facility] [address]00565100[place] [address]- [address] Jul, Atrial fibrillation, unspecified type I48.91 and Hyperthyroidism E05.90 [place] [address] [place] [address] [id number] Jun, Acute recurrent frontal sinusitis J01.11 [place] [address] [place] [address] [id number] Jun, [address] [id number] May, Screening breast examination Z12.31 and H/O breast augmentation Z98.82 [place] [address] [place] [address] [id number] May, [address] [id number] May, Nasal polyp J33.9 and Acute non-recurrent frontal sinusitis J01.10 [place] [address] [place] [address] [id number] May, COPD exacerbation J44.1 [place] [address] [place] [address] [id number] Apr, [address] [id number] January, Enlarged thyroid E01.0 and COPD exacerbation J44.1 [place] [address] [place] [address] [id number] January, Chronic obstructive pulmonary disease, unspecified J44.9 [place] [address] [place] [address] [id number] Dec, [place] [address] [place] [address] [id number] Dec, [place] [address] [place] [address] [id number] Dec, Cough R05 ; Shortness of breath R06.02 ; Urinary frequency R35.0 and Chronic obstructive pulmonary disease, unspecified J44.9 [place] [address] [place] [address] [id number] Nov, Bronchitis J40 and Cough R05 [place] [address] [place] [address] [id number] Aug, Pain of left hand M79.642 ; Atrial fibrillation, unspecified type I48.91 and Screening for hyperlipidemia Z13.220 [place] [address] [place] [address] [id number] Aug, [address] [id number] Aug, Pain of left foot M79.672 ; Pain in right foot M79.671 ; Pain of left hand M79.642 ; Pain in right hand M79.641 ; Screening for hyperlipidemia Z13.220 and Atrial fibrillation, unspecified type I48.91 [place] [address] [place] [address] [id number] Jul, Rash R21 ; Arthritis of both hips M12.9 ; Depressive disorder, not elsewhere classified F32.9 ; Atrial fibrillation, unspecified type I48.91 ; Hyperthyroidism E05.90 and Chronic obstructive pulmonary disease, unspecified J44.9 [facility] [address] [address]74359- 1450 Jun, [facility] [address] [id number]- 4853 Jun, Rosacea L71.[address] [id number] Jun, Rosacea L71.9 and Oral herpes simplex infection B00.2 [place] [address] [place] [address] [id number] Jun, Rash R21 [address] [id number] Jun, Asthma exacerbation J45.901 [place] [address] [place] [address] [id number] Apr, [place] [address] [place] [address] [id number] Apr, Acute diffuse otitis externa of right ear H60.311 and Rash R21 [facility] [address]00565100[place] [address] Feb, Rash R21 [facility] [id number] [place] [address]- 5406 Feb, [place] [address] [place] [address] [id number] January, Hyperthyroidism E05.[address] [id number] January, Atrial fibrillation, unspecified type I48.91 and Hyperthyroidism E05.90 [facility] [id number] [place] [address] 2546 January, [place] [address] [place] [address] [id number] January, Atrial fibrillation, unspecified type I48.91 [place] [address] [place] [address] [id number] Dec, Asthma exacerbation J45.901 [place] [address] [place] [address] [id number] Dec, [place] [address] [place] [address] [id number] Oct, Acute maxillary sinusitis, recurrence not specified J01.00 and Acute cystitis with hematuria N30.01 [place] [address] [place] [address] [id number] Oct, Sinusitis J32.9 [place] [address] [place] [address] [id number] Sep, Chronic obstructive pulmonary disease, unspecified J44.9 ; Depressive disorder, not elsewhere classified F32.9 ; Arthritis of both hips M12.9 and Essential hypertension I10 [facility] [address] [id number], [place] [id number] Sep, [address] [place] [address] [id number] Sep, [id number] [address]67 Sep, Right hip pain M25.551 [facility] [id number], [place] [id number] Sep, [facility] [address] [place] [id number] [place] [address] [id number] Sep, [facility] [id number] [place] [address] [id number] Sep, Hemoptysis R04.2 ; Pain in right hip M25.551 and Pain in left hip M25.552 [facility] [id number] [place] [address] [id number] Aug, [place] [id number] [place] [address] [id number] Aug, Sinusitis J32.9 ; Cough R05 and Wheezing R06.[address] [place] [address] [id number] May, [facility] [id number] [place] [address] [id number] May, [place] [id number] [place] [address] [id number] May, [address] [place] [address] [id number] Apr, Chronic airway obstruction, not elsewhere classified [address] [place] [address] [id number] Apr, [place] [address] [place] [id number] [place] [address] [id number] Apr, Bronchitis, chronic obstructive, with exacerbation 491.21 [address] [place] [address] [id number] Mar, [place] [address] [place] [address] [id number] Mar, Asthma, unspecified, with (acute) exacerbation 493.92 and Rhinitis 472.[address] [place] [address] [id number] Feb, [address]65100[place], [place] [address] Feb, [address] [place] [address] [id number] Feb, Pituitary incidentaloma 227.3 and Abnormal MRI of the head 793.[address] [place] [address] [id number] Feb, [address] [place] [address] [id number] January, Muscle weakness of lower extremity 728.87 ; Abnormal involuntary movements 781.0 ; Unspecified otitis media 382.9 and Other general symptoms 780.[address] [place] [address] [id number] January, Acute sinusitis, unspecified 461.9 and Muscle weakness of lower extremity 728.[address] [place] [address] [id number] January, Bronchitis 490 and Cough 786.[address]65[address] [id number] Dec, [id number] [place] [address] [id number] Dec, [address] [place] [address] [id number] Dec, [facility] [address] [place] [address] [id number]- 2853 Dec, [facility] [id number] [place] [address] [id number]- 0735 Dec, [facility] [id number] [place] [address] [id number]- 5583 Oct, [facility] [id number] [place] [address] [id number]- 7771 Oct, [facility] [id number] [place] [address] [id number]- 0030 Oct, [facility] [id number] [place] [address] 53654- 0576 Oct, 2014 [facility] [place] [facility] [address] [facility] [id number] [place] [address]- 4306 Oct, 2014 [facility] [place] [facility] [address] [facility] [id number], [place] [address]- 1906 Oct, 2014 [facility] [place] [facility] [address] [facility] [id number], [place] [address]- 4586 Oct, 2014 [facility] [address] [facility] [id number], [place] [id number] Oct, 2014 [facility] [place] [facility] [address] [facility] [id number] [place] [address]- 0576 Oct, 2014 [facility] [place] [facility] [address] [facility] [id number], [place] [address]- 9326 Oct, 2014 [facility] [place] [facility] [address] [place] [id number], [place] [address]- 5916 Oct, 2014 [facility] [address] [id number], [place] [id number] Aug, [facility] [place] [facility] [address] [facility] [id number], [place] [address]- 0806 Aug, [facility] [address] [id number], [place] [id number] Jul, [facility] [place] [facility] [address] [facility] [id number], [place] [address]- 6396 Jul, [facility] [place] [facility] [address] [facility] [id number], [place] [address]- 1606 Jun, [facility] [address] [facility] [id number], [place] [id number] 15 Jun, 2014 [facility] [place] [facility] [address] [facility] [id number], [place] [address]- 9196 14 Jun, 2014 [facility] [address] [facility] [id number], [place] [id number] Jun, [facility] [place] [facility] [address] [place] [id number], [place] [address]- 1376 Jun, [facility] [address] [id number] [place] [id number] May, [facility] [place] [facility] [address] [id number] [place] [address]- 5106 May, [facility] [address] [id number] [place] [id number] May, [facility] [place] [facility] [address] [id number] [place] [address]- 9732 May, [facility] [address] [id number] [place] [id number] May, [facility] [place] [facility] [address] [id number] [place] [address]- 3030 May, [facility] [place] [facility] [address] [facility] [id number] [place] [address]- 3175 Mar, [facility] [place] [facility] [address] [facility] [id number] [place] [address]- 6513 Mar, [facility] [address] [id number] [place] [id number] January, [facility] [place] [facility] [address] [id number] [place] [address]- 2686 January, [facility] [address] [facility] [id number] [place] [id number] Oct, [facility] [place] [facility] [address] [id number], [place] [address]- 4572 Oct, [facility] [place] [facility] [address] [id number] [place] [address]- 9729 Jul, [facility] [place] [facility] [address] [id number] [place] [address]- 4382 Jun, [facility] [place] [facility] [address] [facility] [id number] [place] [address]- 6776 Jun, [facility] [place] [facility] [address] [facility] [id number] [place] [address]- 7846 May, [facility] [place] [facility] [address] [id number] [place] [address]- 4652 May, [facility] [address] [id number] [place] [address]- 9271 Apr, [facility] [place] [facility] [address] [id number] [place] [address]- 0060 Apr, [facility] [place] [facility] [address] [id number] [place] [address]- 8826 Mar, [facility] [place] [facility] [address] [id number] [place] [address]- 1509 Feb, [facility] [place] [facility] [address] [id number] [place] [address]- 1850 Nov, [facility] [place] [facility] [address] [id number] [place] [address]- 7464 Oct, [facility] [place] [facility] [address] [id number] [place] [address]- 8282 Oct, [facility] [place] [facility] [address] [id number] [place] [address]- 7256 Oct, [facility] [place] [facility] [address] [id number] [place] [address]- 7352 Oct, [facility] [place] [facility] [address] [id number] [place] [address]- 8127 Oct, [facility] [place] [facility] [address] [id number] [place] [address]- 9606 Sep, [facility] [place] [facility] [address] [id number] [place] [address]- 1768 Sep, [facility] [place] [facility] [address] [id number] [place] [address]- 7840 Jul, [facility] [place] [facility] [address] [id number] [place] [address]- 1088 Jul, [facility] [place] [facility] [address] [id number], [place] [address]- 2546 17 May, 2011 [facility] [address] [id number] [place] [address]- 5494 06 May, 2011 [facility] [address] [id number] [place] [id number] 05 May, 2011 [facility] [address] [id number] [place] [address]- 5387 04 May, 2011 [facility] [address] [id number] [place] [address]- 6790 04 May, 2011 [facility] [address] [id number] [place] [address]- 8286 May, [facility] [address] [id number] [place] [address]- 9714 Apr, [facility] [address] [id number] [place] [address]- 6414 Apr, [facility] [address] [id number], [place] [address]- 7038 Apr, [facility] [address] [id number], [place] [address]- 4063 Mar, [facility] [place] [facility] [address] [id number], [place] [address]- 4118 Mar, [facility] [address] [id number], [place] [address]- 7254 Mar, [facility] [place] [facility] [address] [id number], [place] [address]- 2320 Mar, [facility] [place] [facility] [address] [id number], [place] [address]- 3630 Feb, [facility] [place] [facility] [address] [id number], [place] 046296496 Feb, [facility] [place] [facility] [address] [id number], [place] [address]- 4173 Feb, [facility] [place] [facility] [address] [id number], [place] 141763241 Feb, [facility] [place] [facility] [address] [id number], [place] [address]- 2546 Feb, [facility] [place] [facility] [address] [id number], [place] [address]- 2546 Feb, [facility] [address] [id number], [place] [id number] January, [facility] [place] [facility] [address] [id number], [place] [address]- 2546 January, [facility] [place] [facility] [address] [id number], [place] 605027893 January, [facility] [place] [facility] [address] [id number], [place] [address]- 2546 January, [facility] [place] [facility] [address] [id number], [place] 658947[address] January, [facility] [place] [facility] [address] [id number], [place] [address]- 9426 January, [facility] [place] [facility] [address] [id number], [place] [address]- 2856 January, [facility] [place] [facility] [address] [id number], [place] [address]- 1986 January, [facility] [place] [facility] [address] [id number], [place] [address]- 4366 Dec, [facility] [place] [facility] [address] [id number], [place] [address]- 4006 Dec, [facility] [place] [facility] [address] [id number], [place] [address]- 7896 Dec, [facility] [place] [facility] [address] [id number], [place] [address]- 2236 Dec, [facility] [place] [facility] [address] [id number], [place] [address]- 2946 Dec, [facility] [address] [id number], [place] [id number] Dec, [facility] [address] [facility] [id number], [place] [address]- 2546 Nov, [facility] [place] [facility] [address] [facility] [id number], [place] [address]- 2546 Nov, [facility] [address] [facility] [id number], [place] [address]- 2546 Nov, [facility] [place] [facility] [address] [id number], [place] 100837935 Oct, [facility] [place] [facility] [address] [facility] [id number], [place] [id number] Oct, [facility] [place] [facility] [address] [facility] [id number], [place] [address] Oct, [facility] [address] [id number][place] [id number] Sep, [facility] [address] [facility] [id number], [place] [address] Sep, [facility] [address] [facility] [id number][place] [id number] Sep, [facility] [address] [facility] [id number][place] [id number] Sep, [facility] [address] [facility] [id number], [place] [address] Aug, [facility] [place] [facility] [address] [facility] [id number], [place] [address] Aug, [facility] [place] [facility] [address] [facility] [id number], [place] [address] Aug, [facility] [place] [facility] [address] [facility] [id number], [place] [address] Aug, [facility] [place] [facility] [address] [facility] [id number], [place] [address] Jul, [facility] [place] [facility] [address] [facility] [id number], [place] [address] Jul, [facility] [address] [id number] [place] [address] 13 May, 2011 [facility] [place] [facility] [address] [id number] [place] [address] January, [facility] [place] [facility] [address] [id number] [place] [address] Dec, [facility] [place] [facility] [address] [id number] [place] [address] Nov, [facility] [address] [id number] [place] [address] Aug, [facility] [place] [facility] [address] [id number] [place] [address] Aug, [facility] [place] [facility] [address] [id number] [place] [address] Aug, [facility] [place] [facility] [address] [id number], [place] [address] Aug, [facility] [place] [facility] [address] [id number] [place] [address] Aug, [facility] [place] [facility] [address] [id number], [place] [address] Aug, [facility] [place] [facility] [address] [id number], [place] [address] Jun, [facility] [place] [facility] [address] [id number], [place] [address] Jun, [facility] [place] [facility] [address] [id number], [place] [address] Jun, [facility] [place] [facility] [address] [id number], [place] [address] Jun, [facility] [place] [facility] [address] [id number] Jun, [facility] [place] [facility] [address] [facility] [id number] [place] [address] 14 May, 2010 [facility] [address] [facility] [id number] [place] [address] 10 May, 2010 IMMUNIZATIONS No Known Immunizations SOCIAL HISTORY Never Assessed REASON FOR VISIT Re:RE:Brittanie Ward - Thyroid PLAN OF CARE VITAL SIGNS MEDICATIONS Unknown [...] PFO Medical History A-fib/RVR Medical History Pre-diabetic Surgical History sinus surgery x 4 due to polyps 1989- 2002 Surgical History breast augmentation 2003 Surgical History tubal ligation 2002 Surgical History section 1992, 1996, 2002 Surgical History tummy tuck 2002 Surgical History Sinus Surgery 2017 Hospitalization History childbirth, surgeries Hospitalization History [facility] Afib w/ RVR, HTN, COPD 01/24/16 Hospitalization History A Fib February 2016
--- OUTSIDE RECORDS SUMMARY | 2019-01-13 09:57 | XMS REPORT ---
Author Author MONY BROWN [facility] Address [address] [place] [address] Care Team Providers Care Railway Signal Technician Name Role Phone BROWNNATALIA ANDREAARDO Unavailable PROBLEMS Type Condition ICD9-CM Code ZDP22-OB Code Onset Dates Condition Status SNOMED Code Problem Enlarged thyroid E01.0 Active 15719181 Problem H/O breast augmentation Z98.82 Active 267092773 Problem COPD exacerbation J44.1 Active 857770274 Problem History of breast augmentation Z98.82 Active 905347558 Problem Decreased hearing of left ear H91.92 Active 751196734 Problem Chronic sinusitis, unspecified location J32.9 Active 86069228 Problem Chronic sinusitis of both maxillary sinuses J32.0 Active [id number] Problem Atelectasis J98.11 Active 61401903 Problem Severe persistent asthma with exacerbation J45.51 Active 186916743 Problem Primary osteoarthritis, left ankle and foot M19.072 Active 03245200 Problem Chronic obstructive pulmonary disease, unspecified J44.9 Active 736002020 Problem Primary osteoarthritis of right foot M19.071 Active 637876163 Problem Right wrist effusion M25.431 Active 539469820 Problem Arthritis of both hips M12.9 Active 02590916 Problem Hyperthyroidism E05.90 Active 47709636 Problem Essential hypertension I10 Active 27436184 Problem Atrial fibrillation, unspecified type I48.91 Active 30089042 Problem Depressive disorder, not elsewhere classified F32.9 Active 86229216 Problem Rosacea L71.9 Active 571015275 ALLERGIES No Information ENCOUNTERS Encounter Location Date Diagnosis [facility] [address] [facility] [id number], [place] [id number] May, [facility] [address] [facility] [id number], [place] [id number] Apr, [facility] [address] [facility] [id number][place] [id number] Mar, [facility] [address] [facility] [address] [id number], [place] [address] Mar, Dental examination Z01.[address] [id number], [place] [id number] Feb, [facility] [address] [facility] [address] [id number], [place] [id number] Feb, [facility] [address] [facility] [address] [id number], [place] [id number] Feb, [facility] [address] [id number], [place] [id number] Feb, [facility] [address] [id number][place] [id number] January, [facility] [address] [id number], [place] [id number] January, Breast tenderness in female N64.4 ; Atypical chest pain R07.89 and History of breast augmentation Z98.82 [facility] R[facility] [address] [id number], [place] [address]8585 Dec, Jaw pain R68.84 [facility] [place] [address] [id number], [place] [id number] Dec, [facility] [address] [id number], [place] [id number] Dec, Chronic sinusitis, unspecified location J32.9 ; Swelling of left side of face R22.0 and Decreased hearing of left ear H91.92 [facility] [address] [facility] [address] [id number], [place] [id number] Nov, Dental examination Z01.20 [facility] [address] [id number], [place] [address]37[address] Nov, Chronic obstructive pulmonary disease, unspecified J44.9 [facility] [place] [address] [id number], [place] [id number] Oct, Chronic obstructive pulmonary disease, unspecified J44.9 [facility] [address] [id number], [place] [address] Sep, [facility] Aviles [facility] [id number], [place] [address] Sep, [facility] [address] [place] [address] [id number], [place] [id number] Sep, Atelectasis J98.11 and Severe persistent asthma with exacerbation J45.[address] [place] [address] [id number] Sep, [address] [id number] Sep, Cough R05 ; Shortness of breath R06.02 ; Low oxygen saturation R79.81 ; Wheezing R06.2 ; Decreased breath sounds at right lung base R09.89 ; Fever, unspecified fever cause R50.9 and COPD exacerbation J44.1 [facility] [address] [place] [address] [id number], [place] [id number] Aug, Chronic sinusitis, unspecified location J32.9 and Acute mucoid otitis media of left ear H65.112 [place] [id number] [place] [address] [id number] Aug, Medial epicondylitis of left elbow M77.02 ; Chronic sinusitis of both maxillary sinuses J32.0 and History of sinus surgery Z98.8[address] [place] [address] [id number] Jul, [place] [id number] [place] [address] [id number] Jul, [place] [id number] [place] [address] [id number] Jul, Atrial fibrillation, unspecified type I48.91 ; Enlarged thyroid E01.0 ; Hyperthyroidism E05.90 and Pre-diabetes R73.03 [place] [id number] [place] [address] [id number] Jul, Elevated blood sugar R73.9 [place] [id number] [place] [address] [id number] Jul, Atrial fibrillation, unspecified type I48.91 and Hyperthyroidism E05.90 [facility] [address] [id number] [address] Jul, Atrial fibrillation, unspecified type I48.91 and Hyperthyroidism E05.90 [place] [id number] [place] [address] [id number] Jun, Acute recurrent frontal sinusitis J01.11 [place] [id number] [place] [address] [id number] Jun, [address] [id number] May, Screening breast examination Z12.31 and H/O breast augmentation Z98.[address] [id number] May, [address] [id number] May, Nasal polyp J33.9 and Acute non-recurrent frontal sinusitis J01.10 [place] [id number] [place] [address] [id number] May, COPD exacerbation J44.1 [place] [id number] [place] [address] [id number] Apr, [address] [id number] January, Enlarged thyroid E01.0 and COPD exacerbation J44.1 [place] [id number] [place] [address] [id number] January, Chronic obstructive pulmonary disease, unspecified J44.9 [place] [id number] [place] [address] [id number] Dec, [place] [id number] [place] [address] [id number] Dec, [address] [id number] Dec, Cough R05 ; Shortness of breath R06.02 ; Urinary frequency R35.0 and Chronic obstructive pulmonary disease, unspecified J44.9 [place] [id number] [place] [address] [id number] Nov, Bronchitis J40 and Cough R05 [place] [id number] [place] [address] [id number] Aug, Pain of left hand M79.642 ; Atrial fibrillation, unspecified type I48.91 and Screening for hyperlipidemia Z13.220 [place] [id number] [place] [address] [id number] Aug, [address] [id number] Aug, Pain of left foot M79.672 ; Pain in right foot M79.671 ; Pain of left hand M79.642 ; Pain in right hand M79.641 ; Screening for hyperlipidemia Z13.220 and Atrial fibrillation, unspecified type I48.91 [place] [id number] [place] [address] [id number] Jul, Rash R21 ; Arthritis of both hips M12.9 ; Depressive disorder, not elsewhere classified F32.9 ; Atrial fibrillation, unspecified type I48.91 ; Hyperthyroidism E05.90 and Chronic obstructive pulmonary disease, unspecified J44.9 [place] [address] [address] Jun, [facility] [address] [id number]- [address]288 Jun, Rosacea L71.9 [place] [id number] [place] [address] [id number] Jun, Rosacea L71.9 and Oral herpes simplex infection B00.2 [place] [id number] [place] [address] [id number] Jun, Rash R21 [address] [id number] Jun, Asthma exacerbation J45.901 [place] [id number] [place] [address] [id number] Apr, [place] [id number] [place] [address] [id number] Apr, Acute diffuse otitis externa of right ear H60.311 and Rash R21 [facility] [id number] [place] [address] Feb, Rash R21 [facility] [id number] [place] [address] 78292- 0693 Feb, [facility] [address] [place] [id number] [place] [address] [id number] January, Hyperthyroidism E05.[address] [id number] January, Atrial fibrillation, unspecified type I48.91 and Hyperthyroidism E05.90 [facility] [id number] [place] [address] 64385- 1701 January, [facility] [id number] [place] [address] [id number] January, Atrial fibrillation, unspecified type I48.91 [place] [id number] [place] [address] [id number] Dec, Asthma exacerbation J45.901 [place] [id number] [place] [address] [id number] Dec, [address] [id number] Oct, Acute maxillary sinusitis, recurrence not specified J01.00 and Acute cystitis with hematuria N30.01 [place] [id number] [place] [address] [id number] Oct, Sinusitis J32.9 [place] [id number] [place] [address] [id number] Sep, Chronic obstructive pulmonary disease, unspecified J44.9 ; Depressive disorder, not elsewhere classified F32.9 ; Arthritis of both hips M12.9 and Essential hypertension I10 [facility] [address] [id number][place] [id number] Sep, [place] [id number] [place] [address] [id number] Sep, [place] [id number] [place] [address] [id number] Sep, Right hip pain M25.551 [facility] [id number], [place] [id number] Sep, [facility] [id number] [place] [address] [id number] Sep, [facility] [id number] [place] [address] [id number] Sep, Hemoptysis R04.2 ; Pain in right hip M25.551 and Pain in left hip M25.552 [facility] [id number], [place] [id number] Aug, [place] [id number] [place] [address] [id number] Aug, Sinusitis J32.9 ; Cough R05 and Wheezing R06.2 [facility] [address]00565100[place] [id number] May, [facility] [id number] [place] [address] [id number] May, [facility] [id number] [place] [address] [id number] May, [facility] [id number] [place] [address] [id number] Apr, Chronic airway obstruction, not elsewhere classified 496 [facility] [id number] [place] [address] [id number] Apr, [place] [id number] [place] [address] [id number] Apr, Bronchitis, chronic obstructive, with exacerbation 491.21 [facility] [id number] [place] [address] [id number] Mar, [place] [id number] [place] [address] [id number] Mar, Asthma, unspecified, with (acute) exacerbation 493.92 and Rhinitis 472.0 [address] [place] [address] [id number] Feb, [place] [id number] [place] [address] [id number] Feb, [place] [id number] [place] [address] [id number] Feb, Pituitary incidentaloma 227.3 and Abnormal MRI of the head 793.0 [address] [place] [address] [id number] Feb, [address] [place] [address] [id number] January, Muscle weakness of lower extremity 728.87 ; Abnormal involuntary movements 781.0 ; Unspecified otitis media 382.9 and Other general symptoms 780.99 [address] [place] [address] [id number] January, Acute sinusitis, unspecified 461.9 and Muscle weakness of lower extremity 728.[address] [place] [address] [id number] January, Bronchitis 490 and Cough 786.2 [address]00565100[place] [id number] Dec, [id number] [place] [address] [id number] Dec, [address] [place] [address] [id number] Dec, [facility] [address] [place] [address] 49371- 8096 Dec, [facility] [id number] [place] [address] 33133- 2584 Dec, [facility] [id number] [place] [address] 68811- 4216 Oct, [facility] [id number] [place] [address] 521626- 6737 Oct, [facility] [id number] [place] [address] 468532- 1658 Oct, [facility] [id number] [place] [address] 935762- 3538 Oct, [facility] [place] [facility] [address] [facility] [id number] [place] [address]- 3081 Oct, 2014 [facility] [place] [facility] [address] [facility] [id number] [place] [address]- 6295 Oct, 2014 [facility] [place] [facility] [address] [facility] [id number] [place] [address]- 6105 Oct, 2014 [facility] [address] [facility] [id number], [place] [id number] Oct, 2014 [facility] [place] [facility] [address] [facility] [id number] [place] [address]- 1398 Oct, 2014 [facility] [place] [facility] [address] [facility] [id number] [place] [address]- 6476 Oct, 2014 [facility] [place] [facility] [address] [facility] [id number] [place] [address]- 3201 Oct, 2014 [facility] [address] [id number], [place] [id number] Aug, [facility] [place] [facility] [address] [facility] [id number], [place] [address]- 2052 Aug, [facility] [address] [facility] [id number], [place] [id number] Jul, [facility] [place] [facility] [address] [facility] [id number], [place] [address]- 1311 Jul, [facility] [place] [facility] [address] [facility] [id number], [place] [address]- 8572 Jun, [facility] [address] [facility] [id number], [place] [id number] 15 Jun, 2014 [facility] [place] [facility] [address] [facility] [id number], [place] [address]- 9052 14 Jun, 2014 [facility] [address] [facility] [id number], [place] [id number] Jun, [facility] [place] [facility] [address] [facility] [id number][place] [address]- 6196 Jun, [facility] [address] [id number] [place] [id number] May, [facility] [address] [id number] [place] [address]- 4544 May, [facility] [address] [id number] [place] [id number] May, [facility] [address] [id number], [place] [address]- 7216 May, [facility] [address] [facility] [id number] [place] [id number] May, [facility] [place] [facility] [address] [id number] [place] [address]- 2256 May, [facility] [place] [facility] [address] [facility] [id number] [place] [address]- 6072 Mar, [facility] [place] [facility] [address] [facility] [id number], [place] [address]- 2047 Mar, [facility] [address] [facility] [id number] [place] [id number] January, [facility] [place] [facility] [address] [id number], [place] [address]- 7719 January, [facility] [address] [facility] [id number], [place] [id number] Oct, [facility] [place] [facility] [address] [id number], [place] [address]- 2031 Oct, [facility] [place] [facility] [address] [id number], [place] [address]- 0054 Jul, [facility] [place] [facility] [address] [id number] [place] [address]- 8855 Jun, [facility] [place] [facility] [address] [id number], [place] [address]- 1323 Jun, [facility] [place] [facility] [address] [id number] [place] [address]- 7894 May, [facility] [place] [facility] [address] [id number] [place] [address] 2546 May, [facility] [address] [id number] [place] [address]- 4018 Apr, [facility] [place] [facility] [address] [id number] [place] [address]- 7186 Apr, [facility] [address] [id number] [place] [address]- 8361 Mar, [facility] [place] [facility] [address] [id number] [place] [address]- 7960 Feb, [facility] [address] [id number] [place] [address]- 1556 Nov, [facility] [address] [id number] [place] [address]- 4395 Oct, [facility] [address] [id number] [place] [address]- 3748 Oct, [facility] [address] [id number] [place] [address]- 0037 Oct, [facility] [address] [id number] [place] [address]- 4017 Oct, [facility] [address] [facility] [id number] [place] [address]- 5801 Oct, [facility] [address] [id number] [place] [address]- 2543 Sep, [facility] [address] [id number] [place] [address]- 2545 Sep, [facility] [place] [facility] [address] [id number] [place] [address]- 2546 Jul, [facility] [place] [facility] [address] [id number] [place] [address]- 2546 Jul, [facility] [address] [facility] [id number] [place] [address]- 2546 May, [facility] [address] [id number] [place] [address]- 7236 06 May, 2011 [facility] [address] [id number] [place] [id number] 05 May, 2011 [facility] [address] [id number] [place] [address]- 2546 04 May, 2011 [facility] [place] [facility] [address] [id number] [place] [address]- 8136 04 May, 2011 [facility] [address] [id number] [place] [address]- 6641 May, [facility] [place] [facility] [address] [id number] [place] [address]- 0026 Apr, [facility] [address] [id number] [place] [address]- 9538 Apr, [facility] [address] [id number] [place] [address]- 1506 Apr, [facility] [address] [id number] [place] [address]- 5729 Mar, [facility] [address] [id number] [place] [address]- 9706 Mar, [facility] [address] [id number] [place] [address]- 4711 Mar, [facility] [place] [facility] [address] [id number], [place] [address]- 2546 Mar, [facility] [place] [facility] [address] [id number] [place] [address]- 2546 Feb, [facility] [place] [facility] [address] [id number] [place] [id number] Feb, [facility] [place] [facility] [address] [id number] [place] [address]- 2546 Feb, [facility] [place] [facility] [address] [id number], [place] [id number] Feb, [facility] [place] [facility] [address] [id number] [place] [address]- 2546 Feb, [facility] [place] [facility] [address] [id number] [place] [address]- 2546 Feb, [facility] [address] [id number] [place] [id number] January, [facility] [place] [facility] [address] [id number] [place] [address]- 2546 January, [facility] [place] [facility] [address] [id number] [place] [id number] January, [facility] [place] [facility] [address] [id number] [place] [address]- 2546 January, [facility] [place] [facility] [address] [id number] [place] [id number] January, [facility] [place] [facility] [address] [id number] [place] [address]- 2546 January, [facility] [place] [facility] [address] [id number] [place] [address]- 2546 January, [facility] [place] [facility] [address] [id number] [place] [address]- 2546 January, [facility] [place] [facility] [address] [id number] [place] [address]- 2546 Dec, [facility] [place] [facility] [address] [id number], [place] [address]- 2546 Dec, [facility] [place] [facility] [address] [id number] [place] [address]- 2546 Dec, [facility] [place] [facility] [address] [id number] [place] [address]- 2546 Dec, [facility] [place] [facility] [address] [id number] [place] [address]- 2546 Dec, [facility] [address] [id number] [place] [id number] Dec, [facility] [address] [id number], [place] [address] Nov, [facility] [address] [id number] [place] [address] Nov, [facility] [address] [facility] [id number] [place] [address] Nov, [facility] [address] [id number] [id number] Oct, [facility] [address] [facility] [id number] [place] [id number] Oct, [facility] [address] [facility] [id number], [place] [address] Oct, [facility] [address] [id number] [id number] Sep, [facility] [address] [facility] [id number], [place] [address] Sep, [facility] [address] [facility] [id number][place] [id number] Sep, [facility] [address] [facility] [id number] [place] [id number] Sep, [facility] [address] [facility] [id number], [place] [address] Aug, [facility] [address] [facility] [id number], [place] [address] Aug, [facility] [address] [facility] [id number], [place] [address] Aug, [facility] [place] [facility] [address] [facility] [id number], [place] [address] Aug, [facility] [place] [facility] [address] [facility] [id number], [place] [address] Jul, [facility] [address] [facility] [id number], [place] [address] Jul, [facility] [place] [facility] [address] [id number] [place] [address] 13 May, 2011 [facility] [place] [facility] [address] [id number] [place] [address] January, [facility] [place] [facility] [address] [id number] [place] [address] Dec, [facility] [place] [facility] [address] [id number] [place] [address] Nov, [facility] [address] [id number] [place] [address] Aug, [facility] [place] [facility] [address] [id number] [place] [address] Aug, [facility] [address] [id number] [place] [address] Aug, [facility] [address] [id number] [place] [address] Aug, [facility] [place] [facility] [address] [id number] [place] [address] Aug, [facility] [place] [facility] [address] [id number] [place] [address] Aug, [facility] [place] [facility] [address] [id number] [place] [address] Jun, [facility] [place] [facility] [address] [id number], [place] [address] Jun, [facility] [place] [facility] [address] [id number] [place] [address] Jun, [facility] [place] [facility] [address] [id number], [place] [address] Jun, [facility] [place] [facility] [address] [id number] [address] Jun, [facility] [place] [facility] [address] [id number] [address] 14 May, 2010 [facility] [address] [facility] [id number] [place] [address] 10 May, 2010 IMMUNIZATIONS No Known Immunizations SOCIAL HISTORY Never Assessed REASON FOR VISIT Requests return call PLAN OF CARE VITAL SIGNS MEDICATIONS Unknown [...]
--- OUTSIDE RECORDS SUMMARY | 2019-01-13 09:58 | XMS REPORT ---
Author Author ELLA ANN [facility] Address [address] [place] [address] Care Team Providers Care Gate Supervisor Name Role Phone ELLA ANN Unavailable PROBLEMS Type Condition ICD9-CM Code [id number] Code Onset Dates Condition Status SNOMED Code Problem Enlarged thyroid E01.0 Active 65900467 Problem H/O breast augmentation Z98.82 Active 893612463 Problem COPD exacerbation J44.1 Active 195921585 Problem History of breast augmentation Z98.82 Active 891337714 Problem Decreased hearing of left ear H91.92 Active 866455732 Problem Chronic sinusitis, unspecified location J32.9 Active 93104757 Problem Chronic sinusitis of both maxillary sinuses J32.0 Active [id number] Problem Atelectasis J98.11 Active 27271798 Problem Severe persistent asthma with exacerbation J45.51 Active 597799513 Problem Primary osteoarthritis, left ankle and foot M19.072 Active 03903926 Problem Chronic obstructive pulmonary disease, unspecified J44.9 Active 541459579 Problem Primary osteoarthritis of right foot M19.071 Active 893676241 Problem Right wrist effusion M25.431 Active 163330028 Problem Arthritis of both hips M12.9 Active 91193997 Problem Hyperthyroidism E05.90 Active 21364937 Problem Essential hypertension I10 Active 82706208 Problem Atrial fibrillation, unspecified type I48.91 Active 22176964 Problem Depressive disorder, not elsewhere classified F32.9 Active 76075790 Problem Rosacea L71.9 Active 007390597 ALLERGIES Substance Reaction Event Type Date Status Sulfamethoxazole sores in mouth Drug Allergy Mar, Active Penicillin V Potassium hives Drug Allergy Mar, Active Bactrim DS Unknown Drug Allergy Mar, Active ENCOUNTERS Encounter Location Date Diagnosis [facility] [address] [id number] [place] [id number] Apr, [facility] [address] [id number] [id number] Mar, [facility] [address] [id number] [id number] Mar, Dental examination Z01.[address] [facility] [address] [id number] [place] [id number] Feb, [facility] [address] [id number][place] [id number] Feb, [facility] [address] [id number][place] [id number] Feb, [facility] [address] [id number][place] [id number] Feb, [facility] [address] [id number][place] [id number] January, [facility] [address] [id number][place] [id number] January, Breast tenderness in female N64.4 ; Atypical chest pain R07.89 and History of breast augmentation Z98.82 [facility] [address] [id number][place] [address] Dec, Jaw pain R68.84 [facility] [address] [id number][place] [address] Dec, [facility] [address] [id number][place] [address] Dec, Chronic sinusitis, unspecified location J32.9 ; Swelling of left side of face R22.0 and Decreased hearing of left ear H91.92 [facility] [address] [id number][place] [id number] Nov, Dental examination Z01.20 [facility] [address] [id number][place] [id number] Nov, Chronic obstructive pulmonary disease, unspecified J44.9 [facility] [address] [id number], [place] [address] Oct, Chronic obstructive pulmonary disease, unspecified J44.[address] [facility] [address] [id number], [place] [address] Sep, [address] [id number][place] [address] Sep, [address] [id number], [place] [id number] Sep, Atelectasis J98.11 and Severe persistent asthma with exacerbation J45.51 [place] [id number] [place] [address] [id number] Sep, [place] [id number] [place] [address] [id number] Sep, Cough R05 ; Shortness of breath R06.02 ; Low oxygen saturation R79.81 ; Wheezing R06.2 ; Decreased breath sounds at right lung base R09.89 ; Fever, unspecified fever cause R50.9 and COPD exacerbation J44.[address] [id number], [place] [address]72[address] Aug, Chronic sinusitis, unspecified location J32.9 and Acute mucoid otitis media of left ear H65.112 [place] [id number] [place] [address] [id number] Aug, Medial epicondylitis of left elbow M77.02 ; Chronic sinusitis of both maxillary sinuses J32.0 and History of sinus surgery Z98.890 [address] [place] [address] [id number] Jul, [place] [id number] [place] [address] [id number] Jul, [place] [id number] [place] [address] [id number] Jul, Atrial fibrillation, unspecified type I48.91 ; Enlarged thyroid E01.0 ; Hyperthyroidism E05.90 and Pre-diabetes R73.03 [place] [id number] [place] [address] [id number] Jul, Elevated blood sugar R73.9 [place] [id number] [place] [address] [id number] Jul, Atrial fibrillation, unspecified type I48.91 and Hyperthyroidism E05.90 [facility] [address]00565100[place] [address] Jul, Atrial fibrillation, unspecified type I48.91 and Hyperthyroidism E05.90 [place] [id number] [place] [address] [id number] Jun, Acute recurrent frontal sinusitis J01.[address] [id number] Jun, [place] [id number] [place] [address] [id number] May, Screening breast examination Z12.31 and H/O breast augmentation Z98.82 [place] [id number] [place] [address] [id number] May, [place] [id number] [place] [address] [id number] May, Nasal polyp J33.9 and Acute non-recurrent frontal sinusitis J01.10 [place] [id number] [place] [address] [id number] May, COPD exacerbation J44.1 [place] [id number] [place] [address] [id number] Apr, [place] [id number] [place] [address] [id number] January, Enlarged thyroid E01.0 and COPD exacerbation J44.1 [place] [id number] [place] [address] [id number] January, Chronic obstructive pulmonary disease, unspecified J44.9 [address] [place] [address] [id number] Dec, [place] [id number] [place] [address] [id number] Dec, [place] [address] [place] [address] [id number] Dec, Cough R05 ; Shortness of breath R06.02 ; Urinary frequency R35.0 and Chronic obstructive pulmonary disease, unspecified J44.9 [place] [id number] [place] [address] [id number] Nov, Bronchitis J40 and Cough R05 [address] [id number] Aug, Pain of left hand M79.642 ; Atrial fibrillation, unspecified type I48.91 and Screening for hyperlipidemia Z13.[address] [id number] Aug, [address] [id number] Aug, Pain of left foot M79.672 ; Pain in right foot M79.671 ; Pain of left hand M79.642 ; Pain in right hand M79.641 ; Screening for hyperlipidemia Z13.220 and Atrial fibrillation, unspecified type I48.[address] [id number] Jul, Rash R21 ; Arthritis of both hips M12.9 ; Depressive disorder, not elsewhere classified F32.9 ; Atrial fibrillation, unspecified type I48.91 ; Hyperthyroidism E05.90 and Chronic obstructive pulmonary disease, unspecified J44.9 [facility] [address] [id number]- 7098 Jun, [facility] [address] [id number]- 7127 Jun, Rosacea L71.[address] [id number] Jun, Rosacea L71.9 and Oral herpes simplex infection B00.[address] [id number] Jun, Rash R21 [address] [id number] Jun, Asthma exacerbation J45.901 [place] [id number] [place] [address] [id number] Apr, [address] [id number] Apr, Acute diffuse otitis externa of right ear H60.311 and Rash R21 [facility] [id number] [place] [address] [id number] Feb, Rash R21 [facility] [id number] [place] [address] [id number]- 8770 Feb, [place] [id number] [place] [address] [id number] January, Hyperthyroidism E05.90 [place] [id number] [place] [address] [id number] January, Atrial fibrillation, unspecified type I48.91 and Hyperthyroidism E05.90 [facility] [id number] [place] [address] 29144 2546 January, [place] [id number] [place] [address] [id number] January, Atrial fibrillation, unspecified type I48.91 [place] [id number] [place] [address] [id number] Dec, Asthma exacerbation J45.901 [place] [id number] [place] [address] [id number] Dec, [place] [address] [place] [address] [id number] Oct, Acute maxillary sinusitis, recurrence not specified J01.00 and Acute cystitis with hematuria N30.01 [place] [id number] [place] [address] [id number] Oct, Sinusitis J32.9 [place] [id number] [place] [address] [id number] Sep, Chronic obstructive pulmonary disease, unspecified J44.9 ; Depressive disorder, not elsewhere classified F32.9 ; Arthritis of both hips M12.9 and Essential hypertension I10 [facility] [address] [id number] [id number] Sep, [address] [place] [address] [id number] Sep, [id number] [address] Sep, Right hip pain M25.551 [facility] [id number] [place] [address] [id number] Sep, [facility] [id number] [place] [address] [id number] Sep, [facility] [id number] [place] [address] [id number] Sep, Hemoptysis R04.2 ; Pain in right hip M25.551 and Pain in left hip M25.552 [facility] [id number] [place] [address] [id number] Aug, [place] [id number] [place] [address] [id number] Aug, Sinusitis J32.9 ; Cough R05 and Wheezing R06.2 [facility] [id number] [place] [address] [id number] May, [facility] [id number] [place] [address] [id number] May, [address] [place] [address] [id number] May, [place] [id number] [place] [address] [id number] Apr, Chronic airway obstruction, not elsewhere classified [address] [place] [address] [id number] Apr, [place] [address] [place] [address] [id number] Apr, Bronchitis, chronic obstructive, with exacerbation 491.21 [address] [place] [address] [id number] Mar, [place] [address] [place] [address] [id number] Mar, Asthma, unspecified, with (acute) exacerbation 493.92 and Rhinitis 472.0 [address] [place] [address] [id number] Feb, [address] [id number] [id number] Feb, [address] [place] [address] [id number] Feb, Pituitary incidentaloma 227.3 and Abnormal MRI of the head 793.0 [address] [place] [address] [id number] Feb, [place] [id number] [place] [address] [id number] January, Muscle weakness of lower extremity 728.87 ; Abnormal involuntary movements 781.0 ; Unspecified otitis media 382.9 and Other general symptoms 780.99 [place] [id number] [place] [address] [id number] January, Acute sinusitis, unspecified 461.9 and Muscle weakness of lower extremity 728.87 [address] [place] [address] [id number] January, Bronchitis 490 and Cough 786.2 [address]005[address] [id number] Dec, [id number] [place] [address] [id number] Dec, [address] [place] [address] [id number] Dec, [facility] [address] [place] [address] 97045- 8303 Dec, [facility] [id number] [place] [address] [id number]- 9328 Dec, [facility] [id number] [place] [address] [id number]- 7967 Oct, [facility] [id number] [place] [address] [id number]- 6247 Oct, [facility] [id number] [place] [address] 141276- 1867 Oct, [facility] [id number] [place] [address] 07917- 6586 Oct, 2014 [facility] [place] [facility] [address] [facility] [address] [id number] [address]- 6567 Oct, 2014 [facility] [place] [facility] [address] [facility] [address] [id number] [address]- 0712 Oct, 2014 [facility] [place] [facility] [address] [facility] [address] [id number] [address]- 6046 Oct, 2014 [facility] [address] [facility] [id number][place] [id number] Oct, 2014 [facility] [place] [facility] [address] [facility] [address] [id number] [place] [address]- 4786 Oct, 2014 [facility] [place] [facility] [address] [id number] [address]- 7246 Oct, 2014 [facility] [place] [facility] [address]65100[place] [address]- 3642 Oct, 2014 [facility] [id number], [place] [id number] Aug, [facility] [place] [facility] [address] [facility] [address] [id number] [place] [address]- 7385 Aug, [facility] [address] [id number] [id number] Jul, [facility] [place] [facility] [address]65100[place] [address]- 0066 Jul, [facility] [place] [facility] [address] [facility] [address] [id number] [place] [address]- 8796 Jun, [facility] [address] [facility] [id number][place] [id number] 15 Jun, 2014 [facility] [place] [facility] [address] [facility] [address] [id number] [place] [address]- 8826 14 Jun, 2014 [facility] [address] [id number] [id number] 10 Jun, 2014 [facility] [place] [facility] [address] [facility] [address] [id number] [address]- 9183 Jun, [facility] [address] [id number] [place] [id number] May, [facility] [address] [id number] [place] [address]- 3756 May, [facility] [address] [id number] [place] [id number] May, [facility] [place] [facility] [address] [id number] [place] [address]- 0622 May, [facility] [address] [id number] [place] [id number] May, [facility] [place] [facility] [address] [facility] [address] [id number] [place] [address]- 1826 May, [facility] [place] [facility] [address] [facility] [address] [id number] [place] [address]- 7554 Mar, [facility] [place] [facility] [address] [id number] [place] [address]- 5748 Mar, [facility] [address] [id number] [place] [id number] January, [facility] [place] [facility] [address] [facility] [address] [id number] [place] [address]- 1109 January, [facility] [address] [id number] [place] [id number] Oct, [facility] [place] [facility] [address] [facility] [address] [id number] [place] [address]- 3715 Oct, [facility] [place] [facility] [address] [id number] [place] [address]- 0549 Jul, [facility] [place] [facility] [address] [id number] [place] [address]- 8978 Jun, [facility] [place] [facility] [address] [facility] [address] [id number] [place] [address]- 0966 Jun, [facility] [place] [facility] [address] [facility] [address] [id number] [place] [address]- 1526 May, [facility] [place] [facility] [address] [id number] [place] [address]- 9587 May, [facility] [place] [facility] [address] [id number] [place] [address]- 0552 Apr, [facility] [place] [facility] [address] [id number] [place] [address]- 4473 Apr, [facility] [place] [facility] [address] [id number] [place] [address]- 6995 Mar, [facility] [place] [facility] [address] [id number] [place] [address]- 9480 Feb, [facility] [place] [facility] [address] [id number] [place] [address]- 4979 Nov, [facility] [place] [facility] [address] [facility] [address] [id number] [place] [address]- 7969 Oct, [facility] [place] [facility] [address] [id number] [place] [address]- 9503 Oct, [facility] [place] [facility] [address] [id number] [place] [address]- 2692 Oct, [facility] [place] [facility] [address] [facility] [address] [id number] [place] [address]- 9477 Oct, [facility] [place] [facility] [address] [facility] [address] [id number] [place] [address]- 0582 Oct, [facility] [place] [facility] [address] [id number] [place] [address]- 0560 Sep, [facility] [place] [facility] [address] [id number] [place] [address]- 2366 Sep, [facility] [place] [facility] [address] [id number] [place] [address]- 7834 Jul, [facility] [place] [facility] [address] [facility] [address] [id number] [place] [address]- 0475 Jul, [facility] [place] [facility] [address] [id number] [place] [address]- 4890 17 May, 2011 [facility] [address] [id number] [place] [address]- 3300 06 May, 2011 [facility] [address] [id number] [place] [id number] 05 May, 2011 [facility] [address] [id number] [place] [address]- 4826 04 May, 2011 [facility] [place] [facility] [address] [id number] [place] [address]- 8146 04 May, 2011 [facility] [address] [id number] [place] [address]- 8168 May, [facility] [address] [id number] [place] [address]- 4778 Apr, [facility] [address] [id number] [place] [address]- 8075 Apr, [facility] [place] [facility] [address] [id number] [place] [address]- 4188 Apr, [facility] [address] [id number] [place] [address]- 0186 Mar, [facility] [place] [facility] [address] [id number] [place] [address]- 0295 Mar, [facility] [address] [id number] [place] [address]- 0320 Mar, [facility] [place] [facility] [address] [id number] [place] [address]- 6435 Mar, [facility] [place] [facility] [address] [id number] [place] [address]- 5886 Feb, [facility] [place] [facility] [address] [id number] 826[place]798 Feb, [facility] [place] [facility] [address] [id number] [place] [address]- 3642 Feb, [facility] [place] [facility] [address] [id number] [place] Feb, [facility] [place] [facility] [address] [id number] [place] [address]- 2546 Feb, [facility] [place] [facility] [address] [id number] [place] [address]- 2546 Feb, [facility] [address] [id number] [address]01[address] January, [facility] [place] [facility] [address] [id number] [place] [address] 2546 January, [facility] [place] [facility] [address] [id number] [place] [id number] January, [facility] [place] [facility] [address] [id number] [place] [address]- 4866 January, [facility] [place] [facility] [address] [id number] [place] [id number] January, [facility] [place] [facility] [address] [id number] [place] [address]- 4276 January, [facility] [place] [facility] [address] [id number] [place] [address]- 1046 January, [facility] [place] [facility] [address] [id number] [place] [address]- 0856 January, [facility] [place] [facility] [address] [id number] [place] [address]- 5146 Dec, [facility] [place] [facility] [address] [id number] [place] [address]- 4906 Dec, [facility] [place] [facility] [address] [id number] [place] [address]- 9236 Dec, [facility] [place] [facility] [address] [id number] [place] [address]- 9386 Dec, [facility] [place] [facility] [address] [id number] [place] [address]- 2116 Dec, [facility] [address] [id number] [address] Dec, [facility] [address] [id number] [place] [address]- 1899 Nov, [facility] [place] [facility] [address] [facility] [address] [id number] [address]- 2546 Nov, [facility] [address] [facility] [address] [id number] [place] [address]- 2546 Nov, [facility] [place] [facility] [address]00565100[place] [id number] Oct, [facility] [id number] [place] [address] [id number] Oct, [facility] [place] [facility] [address] [id number] [address]- 2546 Oct, [facility] [id number], [place] [id number] Sep, [facility] [address] [id number] [address] Sep, [facility] [address] [id number] [id number] Sep, [facility] [address] [facility] [id number] [id number] Sep, [facility] [id number] [address] Aug, [facility] [place] [facility] [address] [facility] [address] [id number] [address] Aug, [facility] [place] [facility] [address] [facility] [address] [id number] [address] Aug, [facility] [place] [facility] [address] [facility] [address] [id number] Aug, [facility] [place] [facility] [address] [facility] [address] [id number] [address] Jul, [facility] [place] [facility] [id number] [address] Jul, [facility] [place] [facility] [address] [id number] [place] [address] 13 May, 2011 [facility] [place] [facility] [address] [id number] [place] [address] January, [facility] [place] [facility] [address] [id number] [place] [address] Dec, [facility] [place] [facility] [address] [id number] [place] [address] Nov, [facility] [place] [facility] [address] [id number] [place] [address] Aug, [facility] [place] [facility] [address] [id number] [place] [address] Aug, [facility] [place] [facility] [address] [id number] [place] [address] Aug, [facility] [place] [facility] [address] [id number] [place] [address] Aug, [facility] [place] [facility] [address] [id number] [place] [address] Aug, [facility] [place] [facility] [address] [id number] [place] [address] Aug, [facility] [place] [facility] [address] [id number] [place] [address] Jun, [facility] [place] [facility] [address] [id number] [place] [address] Jun, [facility] [place] [facility] [address] [id number] [place] [address] Jun, [facility] [place] [facility] [address] [id number] [place] [address] Jun, [facility] [place] [facility] [address] [id number] [place] [address] Jun, [facility] [place] [facility] [address] [facility] [address] [id number] [place] [address] 14 May, 2010 [facility] [address] [facility] [address] [id number] [address] 10 May, 2010 IMMUNIZATIONS No Known Immunizations SOCIAL HISTORY Never Assessed REASON FOR VISIT renetta/prophy PLAN OF CARE Activity Details Follow Up [employer]oratives. 6month prophy and ADRI Reason: VITAL SIGNS Blood pressure systolic 120 mmHg 2018-03-22 Blood pressure diastolic 78 mmHg 2018-03-22 MEDICATIONS Medication Instructions Dosage Frequency Start Date End Date Duration Status Singulair 10 mg 1 tablet by Oral route 1 time per day for 30 days Jun, Active Albuterol Sulfate (2.5 MG/3ML) 0.083% inhalation 4-6 hours as needed 1 Each by Inhalation route every 6 hours for cough and wheezePRNfor wheezing or cough Sep, Active EPINEPHrine 0.3 mg/0.3 mL 0.3 mg by Intramuscular route 1 time per dayPRNfor anyphylaxis Feb, Active Benadryl Allergy 25 MG Orally every 6 hrs 1 tablet as needed 6h Active Montelukast Sodium 10 MG TAKE 1 TABLET BY MOUTH ONCE DAILY AT BEDTIME 90 Active Tapazole 5 mg Orally Once a day 4 tablet with food 24h Active Eliquis 5 mg Orally 2 times a day 1 tablet 12h January, Active Metoprolol Succinate ER 100 MG Orally Once a day 1 tablet 24h Active Advair Diskus 500-50 MCG/DOSE INHALE 1 PUFF TWICE DAILY 30 Active DuoNeb 0.5-2.5 (3) MG/3ML Inhalation every4- 6 hrs 3 ml Sep, Not-Taking Atrovent HFA 17 MCG/ACT INHALE 2 PUFFS BY MOUTH 4 TIMES DAILY 25 Active ZyrTEC 10 mg 1 tablet by Oral route 1 time per day Dec, Active Cardizem CD 180 MG Orally Once a day 1 capsule 24h January, Active Advair Diskus 500-50 MCG/DOSE Inhalation Twice a day 1 puff 12h Oct, Active ProAir HFA 108 (90 Base) MCG/ACT INHALE 2 PUFFS NEEDED 4 TIMES A DAY Active Metformin HCl Active Flonase 50 MCG/ACT Nasally 2 times a day 1 spray in each nostril 12h Active Fluoxetine 20 mg 1 capsule Once a day orally Active RESULTS No Results PROCEDURES Procedure Date Ordered Result Body Site COMP ORAL EVALUATION - NEW/EST PT March 22, 2018 INTRAORL - CMPL SERIES CODE [id number] March 22, 2018 TOPICAL FLUORIDE VARNISH March 22, 2018 PROPHYLAXIS - ADULT March 22, 2018 INSTRUCTIONS MEDICATIONS ADMINISTERED No Known Medications MEDICAL [...] breast augmentation 2004 Surgical History tubal ligation 2002 Surgical History section 1992, 1996, 2002 Surgical History anglemy angela 2002 Surgical History Sinus Surgery 2017 Hospitalization History childbirth, surgeries Hospitalization History [facility] Afib w/ RVR, HTN, COPD 01/24/16 Hospitalization History A Fib February 2016
--- OUTSIDE RECORDS SUMMARY | 2019-01-13 09:59 | XMS REPORT ---
Author Author BRITTNEY ROMERO Organization [facility] Address [address] [place] [address] Care Team Providers Care Java Engineer Name Role Phone BRITTNEY ROMERO Unavailable PROBLEMS Type Condition ICD9-CM Code YOL95-MF Code Onset Dates Condition Status SNOMED Code Problem Enlarged thyroid E01.0 Active 54489536 Problem H/O breast augmentation Z98.82 Active 988624897 Problem COPD exacerbation J44.1 Active 438276654 Problem History of breast augmentation Z98.82 Active 037750717 Problem Decreased hearing of left ear H91.92 Active 201957986 Problem Chronic sinusitis, unspecified location J32.9 Active 38778014 Problem Chronic sinusitis of both maxillary sinuses J32.0 Active [id number] Problem Atelectasis J98.11 Active 53756214 Problem Severe persistent asthma with exacerbation J45.51 Active 008907653 Problem Primary osteoarthritis, left ankle and foot M19.072 Active 00374167 Problem Chronic obstructive pulmonary disease, unspecified J44.9 Active 425998944 Problem Primary osteoarthritis of right foot M19.071 Active 586042974 Problem Right wrist effusion M25.431 Active 011884925 Problem Arthritis of both hips M12.9 Active 24242237 Problem Hyperthyroidism E05.90 Active 44692611 Problem Essential hypertension I10 Active 79301589 Problem Atrial fibrillation, unspecified type I48.91 Active 39516814 Problem Depressive disorder, not elsewhere classified F32.9 Active 62022475 Problem Rosacea L71.9 Active 928319659 ALLERGIES No Information ENCOUNTERS Encounter Location Date Diagnosis [facility] [address] [id number] [place] [id number] Apr, [facility] [place] [address] [facility] [id number] [place] [id number] Mar, [facility] [address] [id number] [place] [id number] Mar, Dental examination Z01.20 [facility] [address] [id number] [place] [id number] Feb, [facility] [address] [id number] [place] [id number] Feb, [facility] [address] [id number] [place] [id number] Feb, [facility] [address] [id number] [place] [address] Feb, [facility] [address] [id number] [place] [address] January, [facility] [address] [id number] [place] [address] January, Breast tenderness in female N64.4 ; Atypical chest pain R07.89 and History of breast augmentation Z98.82 [facility] [place] [address] [id number] [place] [address] Dec, Jaw pain R68.84 [facility] [place] [address] [id number] [place] [address] Dec, [facility] [place] [address] [id number] [place] [address] Dec, Chronic sinusitis, unspecified location J32.9 ; Swelling of left side of face R22.0 and Decreased hearing of left ear H91.92 [facility] [address] [id number] [id number] Nov, Dental examination Z01.20 [facility] [place] [address] [id number] [place] [address] Nov, Chronic obstructive pulmonary disease, unspecified J44.9 [facility] [address] [id number] [place] [address] Oct, Chronic obstructive pulmonary disease, unspecified J44.9 [facility] [address] [id number], [place] [id number] Sep, [facility] [address] [id number], [place] [id number] Sep, [facility] Stefan [facility] [id number][place] [address] Sep, Atelectasis J98.11 and Severe persistent asthma with exacerbation J45.[address] [place] [address] [id number] Sep, [place] [id number] [place] [address] [id number] Sep, Cough R05 ; Shortness of breath R06.02 ; Low oxygen saturation R79.81 ; Wheezing R06.2 ; Decreased breath sounds at right lung base R09.89 ; Fever, unspecified fever cause R50.9 and COPD exacerbation J44.1 [facility] [address] [place] [address] [id number], [place] [address] Aug, Chronic sinusitis, unspecified location J32.9 and Acute mucoid otitis media of left ear H65.112 [place] [address] [place] [address] [id number] Aug, Medial epicondylitis of left elbow M77.02 ; Chronic sinusitis of both maxillary sinuses J32.0 and History of sinus surgery Z98.890 [address] [place] [address] [id number] Jul, [place] [address] [place] [address] [id number] Jul, [place] [address] [place] [address] [id number] Jul, Atrial fibrillation, unspecified type I48.91 ; Enlarged thyroid E01.0 ; Hyperthyroidism E05.90 and Pre-diabetes R73.[address] [place] [address] [id number] Jul, Elevated blood sugar R73.9 [address] [place] [address] [id number] Jul, Atrial fibrillation, unspecified type I48.91 and Hyperthyroidism E05.90 [facility] [address] [place] [address] Jul, Atrial fibrillation, unspecified type I48.91 and Hyperthyroidism E05.90 [place] [id number] [place] [address] [id number] Jun, Acute recurrent frontal sinusitis J01.11 [address] [place] [address] [id number] Jun, [place] [address] [place] [address] [id number] May, Screening breast examination Z12.31 and H/O breast augmentation Z98.82 [place] [address] [place] [address] [id number] May, [address] [id number] May, Nasal polyp J33.9 and Acute non-recurrent frontal sinusitis J01.10 [place] [address] [place] [address] [id number] May, COPD exacerbation J44.1 [place] [address] [place] [address] [id number] Apr, [place] [address] [place] [address] [id number] January, Enlarged thyroid E01.0 and COPD exacerbation J44.1 [address] [place] [address] [id number] January, Chronic obstructive pulmonary disease, unspecified J44.9 [place] [address] [place] [address] [id number] Dec, [address] [place] [address] [id number] Dec, [address] [place] [address] [id number] Dec, Cough R05 ; Shortness of breath R06.02 ; Urinary frequency R35.0 and Chronic obstructive pulmonary disease, unspecified J44.9 [address] [place] [address] [id number] Nov, Bronchitis J40 and Cough R05 [place] [address] [place] [address] [id number] Aug, Pain of left hand M79.642 ; Atrial fibrillation, unspecified type I48.91 and Screening for hyperlipidemia Z13.220 [address] [address] [place] [address] [id number] Aug, [address] [id number] Aug, Pain of left foot M79.672 ; Pain in right foot M79.671 ; Pain of left hand M79.642 ; Pain in right hand M79.641 ; Screening for hyperlipidemia Z13.220 and Atrial fibrillation, unspecified type I48.[address] [id number] Jul, Rash R21 ; Arthritis of both hips M12.9 ; Depressive disorder, not elsewhere classified F32.9 ; Atrial fibrillation, unspecified type I48.91 ; Hyperthyroidism E05.90 and Chronic obstructive pulmonary disease, unspecified J44.9 [facility] [address] [address] Jun, [facility] [address] [address] Jun, Rosacea L71.9 [place] [id number] [place] [address] [id number] Jun, Rosacea L71.9 and Oral herpes simplex infection B00.2 [place] [address] [place] [address] [id number] Jun, Rash R21 [address] [id number] Jun, Asthma exacerbation J45.[address] [id number] Apr, [address] [id number] Apr, Acute diffuse otitis externa of right ear H60.311 and Rash R21 [facility] [address] [place] [address] Feb, Rash R21 [facility] [id number] [place] [address] Feb, [facility] [id number] [place] [address] [id number] January, Hyperthyroidism E05.90 [facility] [address] [id number] [place] [address] [id number] January, Atrial fibrillation, unspecified type I48.91 and Hyperthyroidism E05.90 [facility] [id number] [place] [address]- [address]46 January, [facility] [id number] [place] [address] [id number] January, Atrial fibrillation, unspecified type I48.91 [facility] [id number] [place] [address] [id number] Dec, Asthma exacerbation J45.901 [facility] [id number] [place] [address] [id number] Dec, [facility] [id number] [place] [address] [id number] Oct, Acute maxillary sinusitis, recurrence not specified J01.00 and Acute cystitis with hematuria N30.01 [facility] [address] [place] [address] [id number] Oct, Sinusitis J32.9 [place] [address] [place] [address] [id number] Sep, Chronic obstructive pulmonary disease, unspecified J44.9 ; Depressive disorder, not elsewhere classified F32.9 ; Arthritis of both hips M12.9 and Essential hypertension I10 [facility] [address] [id number], [place] [id number] Sep, [facility] [address] [place] [address] [id number] Sep, [facility] [id number] [place] [address] [id number] Sep, Right hip pain M25.551 [facility] [id number] [place] [id number] Sep, [facility] [id number] [place] 55475[address] Sep, [facility] [id number] [place] [address]85[address]39[address] Sep, Hemoptysis R04.2 ; Pain in right hip M25.551 and Pain in left hip M25.552 [facility] [id number] [place] [id number] Aug, [facility] [id number] [place] [address] Aug, Sinusitis J32.9 ; Cough R05 and Wheezing R06.2 [facility] [address]00565100[place] [address] May, [facility] [id number] [place] [id number] May, [facility] [id number] [place] [id number] May, [facility] [id number] [place] [id number] Apr, Chronic airway obstruction, not elsewhere classified 496 [facility] [id number] [place] 14[address]859[address] Apr, [place] [id number] [place] [id number] Apr, Bronchitis, chronic obstructive, with exacerbation 491.21 [facility] [id number] [place] [id number] Mar, [facility] [address] [place] [id number] [place] [id number] Mar, Asthma, unspecified, with (acute) exacerbation 493.[address] [facility] [id number] [place] [id number] Feb, [facility] [address] [place] [address] [id number] [place] 900[address] Feb, [facility]100[place] [id number] Feb, Pituitary incidentaloma 227.3 and Abnormal MRI of the head 793.0 [address] [place] [address] [id number] Feb, [address] [place] [address] [id number] January, Muscle weakness of lower extremity 728.87 ; Abnormal involuntary movements 781.0 ; Unspecified otitis media 382.9 and Other general symptoms 780.99 [address] [place] [address] [id number] January, Acute sinusitis, unspecified 461.9 and Muscle weakness of lower extremity 728.87 [address] [place] [address] [id number] January, Bronchitis 490 and Cough 786.2 [address]00565100[place] [id number] Dec, [address] [place] [address] [id number] Dec, [address] [place] [address] [id number] Dec, [facility] [id number] [place] [address] 86852- 6356 Dec, [facility] [id number] [place] [address] [id number]- 7911 Dec, [facility] [id number] [place] [address] 61711- 7711 Oct, [facility] [id number] [place] [address] 030439- 1650 Oct, [facility] [id number] [place] [address] [id number]- 0362 Oct, [facility] [id number] [place] [address] 071086- 3597 Oct, [facility] [address] [place] [address]- 7026 Oct, 2014 [facility] [place] [facility] [address] [facility] [id number], [place] [address]- 0[address] Oct, 2014 [facility] [place] [facility] [address] [id number], [place] [address]- 7066 Oct, 2014 [facility] [place] [address] [facility] [id number] [place]ICK[place] [id number] Oct, 2014 [facility] [place] [facility] [address]00565100[place], [place] [address]- 0817 Oct, 2014 [facility] [address] [place] [address] 60561- 9046 Oct, 2014 [facility] [place] [facility] [address]00565100[place], [place] [address]- 0156 Oct, 2014 [facility] [id number] [place] [id number] Aug, [facility] [place] [facility] [address]00565100[place], [place] [address]- 0[address] Aug, [facility] [id number] [place] [id number] Jul, [facility] [place] [facility] [address]00565100[place], [place] [address]- 7526 Jul, [facility] [place] [facility] [address]00565100[place], [place] [address]- 2546 15 Jun, 2014 [facility] [address] [facility] [id number] [place] [id number] 15 Jun, 2014 [facility] [place] [facility] [address] [facility] [id number], [place] [address]- 2546 14 Jun, 2014 [facility] [id number] [place] [id number] 10 Jun, 2014 [facility] [place] [facility] [address] [id number], [place] [address]- 2546 Jun, [facility] [id number] [place] [id number] May, [facility] [place] [facility] [address] [id number] [place] [address]- 6[address] May, [facility] [address] [facility] [id number] [place] [id number] May, [facility] [place] [facility] [address] [id number] [place] [address]- 2546 May, [facility] [address] [facility] [id number] [place] [id number] May, [facility] [place] [facility] [address] [id number] [place] [address]- 2546 May, [facility] [place] [facility] [address] [id number] [place] [address] 2546 Mar, [facility] [place] [facility] [address] [facility] [id number] [place] [address]- 2546 Mar, [facility] [address] [facility] [id number] [place] [id number] January, [facility] [place] [facility] [address] [id number] [place] [address]- 3576 January, [facility] [address] [facility] [id number] [place] [id number] Oct, [facility] [place] [facility] [address] [facility] [id number] [place] [address]- 7486 Oct, [facility] [place] [facility] [address] [facility] [id number] [place] [address]- 2315 Jul, [facility] [place] [facility] [address] [id number] [place] [address] 2546 Jun, [facility] [place] [facility] [address] [id number] [place] [address]- 6379 Jun, [facility] [place] [facility] [address] [id number] [place] [address]- 2546 May, [facility] [place] [facility] [address] [id number] [place] [address]- 1926 May, [facility] [place] [facility] [address] [id number] [place] [address]- 0782 Apr, [facility] [place] [facility] [address] [id number] [place] [address]- 4859 Apr, [facility] [place] [facility] [address] [id number] [place] [address]- 8535 Mar, [facility] [place] [facility] [address] [id number] [place] [address]- 5752 Feb, [facility] [place] [facility] [address] [id number] [place] [address]- 9032 Nov, [facility] [place] [facility] [address] [id number] [place] [address]- 8627 Oct, [facility] [place] [facility] [address] [id number] [place] [address]- 9358 Oct, [facility] [place] [facility] [address] [id number] [place] [address]- 5278 Oct, [facility] [place] [facility] [address] [id number] [place] [address]- 7912 Oct, [facility] [place] [facility] [address] [id number] [place] [address]- 8413 Oct, [facility] [place] [facility] [address] [id number] [place] [address]- 6720 Sep, [facility] [place] [facility] [address] [id number] [place] [address]- 9188 Sep, [facility] [place] [facility] [address] [id number] [place] [address]- 7617 Jul, [facility] [place] [facility] [address] [id number] [place] [address]- 0716 Jul, [facility] [place] [facility] [address] [id number] [place] [address]- 0413 May, [facility] [place] [facility] [address] [id number] [place] [address]- 2964 06 May, 2011 [facility] [address] [id number] [place] [id number] 05 May, 2011 [facility] [place] [facility] [address] [id number], [place] [address]- 7623 04 May, 2011 [facility] [place] [facility] [address] [id number] [place] [address]- 8376 04 May, 2011 [facility] [place] [facility] [address] [id number], [place] [address]- 9508 May, 2011 [facility] [place] [facility] [address] [id number] [place] [address]- 1063 Apr, [facility] [place] [facility] [address] [id number], [place] [address]- 0226 Apr, [facility] [place] [facility] [address] [id number], [place] [address]- 9177 Apr, [facility] [place] [facility] [address] [id number], [place] [address]- 8462 Mar, [facility] [place] [facility] [address] [id number], [place] [address]- 4631 Mar, [facility] [place] [facility] [address] [facility] [id number], [place] [address]- 2510 Mar, [facility] [place] [facility] [address] [id number], [place] [address]- 1295 Mar, [facility] [place] [facility] [address] [id number], [place] [address]- 6517 Feb, [facility] [place] [facility] [address] [id number] [place] [id number] Feb, [facility] [place] [facility] [address] [id number], [place] [address]- 2968 Feb, [facility] [place] [facility] [address] [id number] [place] [address]25[address]17[address] Feb, [facility] [place] [facility] [address] [id number], [place] [address]- 3296 Feb, [facility] [address] [id number] [place] [address]- 4873 Feb, [facility] [address] [id number] [place] [id number] January, [facility] [address] [id number] [place] [address]- 0696 January, [facility] [place] [facility] [address] [id number], [place] [address]158[address] January, [facility] [place] [facility] [address] [id number] [place] [address]- 2203 January, [facility] [place] [facility] [address] [id number], [place] 539426967 January, [facility] [place] [facility] [address] [id number], [place] [address]- 5917 January, [facility] [place] [facility] [address] [id number], [place] [address]- 9114 January, [facility] [address] [id number], [place] [address]- 6781 January, [facility] [place] [facility] [address] [id number] [place]- 7615 Dec, [facility] [place] [facility] [address] [id number], [place] [address]- 7653 Dec, [facility] [place] [facility] [address] [id number], [place] [address]- 6991 Dec, [facility] [place] [facility] [address] [id number] [place] [address]- 9835 Dec, [facility] [place] [facility] [address] [id number], [place] [address]- 2171 Dec, [facility] [address] [id number] [place] [id number] Dec, [facility] [place] [facility] [address] [id number], [place] [address]- 9006 Nov, [facility] [address] [id number], [place] [address]- 6798 Nov, [facility] [address] [facility] [id number], [place] [address] Nov, [facility] [address] [id number][place] [id number] Oct, [facility] [place] [facility] [address] [id number][place] [id number] Oct, [facility] [address] [id number], [place] [address] Oct, [facility] [address] [facility] [id number] [place] [id number] Sep, [facility] [address] [id number], [place] [address] Sep, [facility] [address] [facility] [id number] [place] [id number] Sep, [facility] [address] [facility] [id number] [place] [id number] Sep, [facility] [address] [facility] [id number], [place] [address] Aug, [facility] [place] [facility] [address] [facility] [id number], [place] [address] Aug, [facility] [place] [facility] [address] [id number], [place] [address] Aug, [facility] [place] [facility] [address] [facility] [id number], [place] [address] Aug, [facility] [place] [facility] [address] [facility] [id number], [place] [address] Jul, [facility] [place] [facility] [address] [facility] [id number], [place] [address] Jul, [facility] [place] [facility] [address] [facility] [id number], [place] [address] 13 May, 2011 [facility] [place] [facility] [address] [id number] [place] [address] 10 Jan, 2011 [facility] [place] [facility] [address] [id number] [place] [address] 20 Dec, 2010 [facility] [place] [facility] [address] [id number] [place] [address] 18 Nov, 2010 [facility] [place] [facility] [address] [id number] [place] [address] 28 Aug, 2010 [facility] [place] [facility] [address] [id number] [place] [address] 28 Aug, 2010 [facility] [place] [facility] [address] [id number] [place] [address] Aug, [facility] [address] [id number] [place] [address] 08 Aug, 2010 [facility] [place] [facility] [address] [id number] [place] [address] Aug, [facility] [place] [facility] [address] [id number] [place] [address] Aug, [facility] [place] [facility] [address] [id number] [place] [address] 27 Jun, 2010 [facility] [place] [facility] [address] [id number], [place] [address] 26 Jun, 2010 [facility] [place] [facility] [address] [id number], [place] [address] 13 Jun, 2010 [facility] [place] [facility] [address] [id number] [place] [address] 12 Jun, 2010 [facility] [place] [facility] [address] [id number] [place] [address] 12 Jun, 2010 [facility] [place] [facility] [address] [id number] [place] [address] 14 May, 2010 [facility] [place] [facility] [address] [facility] [id number] [place] [id number] 10 May, 2010 IMMUNIZATIONS No Known Immunizations SOCIAL HISTORY Never Assessed REASON FOR VISIT Brittanie Ward - Thyroid PLAN OF CARE VITAL [...]
[2019-01-13] MEDS ORDERED: ASPIRIN 81 MG CHEW (CHILDREN'S ASA) PO ONE (10:00)
[2019-01-13] MEDS ORDERED: NITROGLYCERIN 0.4 MG SL TABS BTL 25'S SL PRN ×2 (10:00→14:15)
--- OUTSIDE RECORDS SUMMARY | 2019-01-13 10:00 | XMS REPORT ---
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 Name Role Phone BRITTNEY ROMERO Unavailable PROBLEMS Type Condition ICD9-CM Code EZO66-KA Code Onset Dates Condition Status SNOMED Code Problem Enlarged thyroid E01.0 Active 05517853 Problem H/O breast augmentation Z98.82 Active 146279574 Problem COPD exacerbation J44.1 Active 744815558 Problem History of breast augmentation Z98.82 Active 150119187 Problem Decreased hearing of left ear H91.92 Active 457292330 Problem Chronic sinusitis, unspecified location J32.9 Active 99005396 Problem Chronic sinusitis of both maxillary sinuses J32.0 Active [id number] Problem Atelectasis J98.11 Active 87408264 Problem Severe persistent asthma with exacerbation J45.51 Active 652752119 Problem Primary osteoarthritis, left ankle and foot M19.072 Active 12961213 Problem Chronic obstructive pulmonary disease, unspecified J44.9 Active 425039269 Problem Primary osteoarthritis of right foot M19.071 Active 982800688 Problem Right wrist effusion M25.431 Active 051012740 Problem Arthritis of both hips M12.9 Active 05162630 Problem Hyperthyroidism E05.90 Active 29269226 Problem Essential hypertension I10 Active 61676673 Problem Atrial fibrillation, unspecified type I48.91 Active 90851326 Problem Depressive disorder, not elsewhere classified F32.9 Active 65952214 Problem Rosacea L71.9 Active 385817348 ALLERGIES No Information ENCOUNTERS Encounter Location Date Diagnosis [facility] [address] [id number] [place] [id number] Apr, [facility] [address] [facility] [place] [id number] [place] [id number] Mar, [facility] [address] [id number] [place] [id number] Mar, Dental examination Z01.20 [facility] [address] [id number] [place] [id number] Feb, [facility] [address] [id number] [place] [id number] Feb, [facility] [address] [id number] [place] [id number] Feb, [facility] [address] [id number], [place] [id number] Feb, [facility] [address] [id number], [place] [address] January, [facility] [address] [id number], [place] [address] January, Breast tenderness in female N64.4 ; Atypical chest pain R07.89 and History of breast augmentation Z98.82 [facility] [address] [id number][place] [address]607[address] Dec, Jaw pain R68.84 [facility] [address] [id number][place] [id number] Dec, [facility] [address] [id number][place] [id number] Dec, Chronic sinusitis, unspecified location J32.9 ; Swelling of left side of face R22.0 and Decreased hearing of left ear H91.92 [facility] [address] [id number][place] [id number] Nov, Dental examination Z01.20 [facility] [address] [id number], [place] [address] Nov, Chronic obstructive pulmonary disease, unspecified J44.9 [facility] [address] [id number], [place] [address] Oct, Chronic obstructive pulmonary disease, unspecified J44.9 [facility] [address] [id number], [place] [id number] Sep, [facility] [address] [id number], [place] [id number] Sep, [facility] Stefan [facility] [id number][place] [id number] Sep, Atelectasis J98.11 and Severe persistent asthma with exacerbation J45.[address] [place] [address] [id number] Sep, [place] [id number] [place] [address] [id number] Sep, Cough R05 ; Shortness of breath R06.02 ; Low oxygen saturation R79.81 ; Wheezing R06.2 ; Decreased breath sounds at right lung base R09.89 ; Fever, unspecified fever cause R50.9 and COPD exacerbation J44.1 [facility] [address] [place] [address] [id number], [place] [id number] Aug, Chronic sinusitis, unspecified location J32.9 and Acute mucoid otitis media of left ear H65.112 [place] [id number] [place] [address] [id number] Aug, Medial epicondylitis of left elbow M77.02 ; Chronic sinusitis of both maxillary sinuses J32.0 and History of sinus surgery Z98.890 [address] [place] [address] [id number] Jul, [place] [id number] [place] [address] [id number] Jul, [place] [id number] [place] [address] [id number] Jul, Atrial fibrillation, unspecified type I48.91 ; Enlarged thyroid E01.0 ; Hyperthyroidism E05.90 and Pre-diabetes R73.[address] [place] [address] [id number] Jul, Elevated blood sugar R73.9 [address] [place] [address] [id number] Jul, Atrial fibrillation, unspecified type I48.91 and Hyperthyroidism E05.90 [facility] [address] [place] [address] Jul, Atrial fibrillation, unspecified type I48.91 and Hyperthyroidism E05.90 [place] [id number] [place] [address] [id number] Jun, Acute recurrent frontal sinusitis J01.11 [address] [place] [address] [id number] Jun, [place] [id number] [place] [address] [id number] May, Screening breast examination Z12.31 and H/O breast augmentation Z98.82 [place] [id number] [place] [address] [id number] May, [address] [id number] May, Nasal polyp J33.9 and Acute non-recurrent frontal sinusitis J01.10 [place] [id number] [place] [address] [id number] May, COPD exacerbation J44.1 [place] [id number] [place] [address] [id number] Apr, [place] [id number] [place] [address] [id number] January, Enlarged thyroid E01.0 and COPD exacerbation J44.1 [address] [place] [address] [id number] January, Chronic obstructive pulmonary disease, unspecified J44.9 [place] [id number] [place] [address] [id number] Dec, [address] [place] [address] [id number] Dec, [address] [place] [address] [id number] Dec, Cough R05 ; Shortness of breath R06.02 ; Urinary frequency R35.0 and Chronic obstructive pulmonary disease, unspecified J44.9 [address] [place] [address] [id number] Nov, Bronchitis J40 and Cough R05 [place] [id number] [place] [address] [id number] Aug, Pain of left hand M79.642 ; Atrial fibrillation, unspecified type I48.91 and Screening for hyperlipidemia Z13.220 [place] [id number] [place] [address] [id number] Aug, [address] [id number] Aug, Pain of left foot M79.672 ; Pain in right foot M79.671 ; Pain of left hand M79.642 ; Pain in right hand M79.641 ; Screening for hyperlipidemia Z13.220 and Atrial fibrillation, unspecified type I48.[address] [id number] Jul, Rash R21 ; Arthritis of both hips M12.9 ; Depressive disorder, not elsewhere classified F32.9 ; Atrial fibrillation, unspecified type I48.91 ; Hyperthyroidism E05.90 and Chronic obstructive pulmonary disease, unspecified J44.9 [facility] [address] [address] Jun, [facility] [address] [address] Jun, Rosacea L71.9 [place] [id number] [place] [address] [id number] Jun, Rosacea L71.9 and Oral herpes simplex infection B00.2 [place] [id number] [place] [address] [id number] Jun, Rash R21 [address] [id number] Jun, Asthma exacerbation J45.[address] [id number] Apr, [address] [id number] Apr, Acute diffuse otitis externa of right ear H60.311 and Rash R21 [facility] [address] [place] [address] Feb, Rash R21 [facility] [id number] [place] [address] 2016 Feb, [facility] [id number] [place] [address] [id number] January, Hyperthyroidism E05.90 [facility] [id number] [place] [address] [id number] January, Atrial fibrillation, unspecified type I48.91 and Hyperthyroidism E05.90 [facility] [id number] [place] [address]46 January, [facility] [id number] [place] [address] [id number] January, Atrial fibrillation, unspecified type I48.91 [facility] [id number] [place] [address] [id number] Dec, Asthma exacerbation J45.901 [facility] [id number] [place] [address] [id number] Dec, [facility] [id number] [place] [address] [id number] Oct, Acute maxillary sinusitis, recurrence not specified J01.00 and Acute cystitis with hematuria N30.01 [facility] [address] [place] [address] [id number] Oct, Sinusitis J32.9 [place] [id number] [place] [address] [id number] Sep, Chronic obstructive pulmonary disease, unspecified J44.9 ; Depressive disorder, not elsewhere classified F32.9 ; Arthritis of both hips M12.9 and Essential hypertension I10 [facility] [address] [id number], [place] [id number] Sep, [facility] [address] [place] [address] [id number] Sep, [facility] [id number] [place] [address] [id number] Sep, Right hip pain M25.551 [facility] [id number], [place] [id number] Sep, [facility] [id number], [place] [id number] Sep, [facility] [id number], [place] [id number] Sep, Hemoptysis R04.2 ; Pain in right hip M25.551 and Pain in left hip M25.552 [facility] [id number], [place] [id number] Aug, [facility] [id number], [place] [id number] Aug, Sinusitis J32.9 ; Cough R05 and Wheezing R06.2 [facility] [address]00565100[place] [id number] May, [facility] [id number], [place] [id number] May, [facility] [id number], [place] [id number] May, [facility] [id number], [place] [address]10[address] Apr, Chronic airway obstruction, not elsewhere classified 496 [facility] [id number], [place] [id number] Apr, [place] [id number], [place] [id number] Apr, Bronchitis, chronic obstructive, with exacerbation 491.21 [facility] [id number], [place] [id number] Mar, [facility] [address] [id number], [place] 8256447[address] Mar, Asthma, unspecified, with (acute) exacerbation 493.92 and Rhinitis 472.0 [facility] [id number], [place] [id number] Feb, [facility] [address] [id number], [place] [id number] Feb, [facility] [id number] Feb, Pituitary incidentaloma 227.3 and Abnormal MRI of the head 793.0 [address] [place] [address] [id number] Feb, [address] [place] [address] [id number] January, Muscle weakness of lower extremity 728.87 ; Abnormal involuntary movements 781.0 ; Unspecified otitis media 382.9 and Other general symptoms 780.99 [address] [place] [address] [id number] January, Acute sinusitis, unspecified 461.9 and Muscle weakness of lower extremity 728.87 [address] [place] [address] [id number] January, Bronchitis 490 and Cough 786.2 [address]00565100[place] [address]56[address] Dec, [address] [place] [address] [id number] Dec, [address] [place] [address] [id number] Dec, [facility] [id number] [place] [address] 07927- 7767 Dec, [facility] [id number] [place] [address] [id number]- 8083 Dec, [facility] [id number] [place] [address] 11159- 6666 Oct, [facility] [id number] [place] [address] 093667- 5674 Oct, [facility] [id number] [place] [address] [id number]- 7079 Oct, [facility] [id number] [place] [address] 505210- 1062 Oct, [facility] [address] [place] [address]- 7296 Oct, 2014 [facility] [place] [facility] [address] [facility] [id number], [place] [address]- [address] Oct, 2014 [facility] [place] [facility] [address] [id number] [address]- 5256 Oct, 2014 [facility] [address] [facility] [place] [id number], [place] [id number] Oct, 2014 [facility] [place] [facility] [address]00565100[place] [address]- 2584 Oct, 2014 [facility] [address] [place] [address] 76525- 5956 Oct, 2014 [facility] [place] [facility] [address]00565100[place] [address]- 2696 Oct, 2014 [facility] [id number], [place] [id number] Aug, [facility] [place] [facility] [address]00565100[place], [place] [address]- 50[address] Aug, [facility] [id number], [place] [id number] Jul, [facility] [place] [facility] [address]00565100[place] [address]- 7676 Jul, [facility] [place] [facility] [address]00565100[place], [place] [address]- 2546 15 Jun, 2014 [facility] [address] [facility] [place] [id number], [place] [id number] 15 Jun, 2014 [facility] [place] [facility] [address] [facility] [id number][place] [address]- 2546 14 Jun, 2014 [facility] [id number], [place] [id number] 10 Jun, 2014 [facility] [place] [facility] [address] [id number] [address]- 2546 Jun, [facility] [id number], [place] [id number] May, [facility] [place] [facility] [address] [id number] [place] [address]- 6926 May, [facility] [address] [facility] [place] [id number] [place] [id number] May, [facility] [place] [facility] [address] [id number] [place] [address]- 2546 May, [facility] [address] [facility] [place] [id number] [place] [id number] May, [facility] [place] [facility] [address] [id number] [place] [address]- 2546 May, [facility] [place] [facility] [address] [id number] [place] [address] 2546 Mar, [facility] [place] [facility] [address] [facility] [id number] [place] [address]- 2546 Mar, [facility] [address] [facility] [place] [id number] [place] [id number] January, [facility] [place] [facility] [address] [id number] [place] [address]- 5566 January, [facility] [address] [facility] [place] [id number] [place] [id number] Oct, [facility] [place] [facility] [address] [facility] [id number] [place] [address]- 4876 Oct, [facility] [place] [facility] [address] [facility] [id number] [place] [address]- 9332 Jul, [facility] [place] [facility] [address] [id number] [place] [address] 2546 Jun, [facility] [place] [facility] [address] [id number] [place] [address]- 8556 Jun, [facility] [place] [facility] [address] [id number] [place] [address]- 2546 May, [facility] [place] [facility] [address] [id number] [place] [address]- 1126 May, [facility] [place] [facility] [address] [id number] [place] [address]- 6778 Apr, [facility] [place] [facility] [address] [id number] [place] [address]- 0840 Apr, [facility] [place] [facility] [address] [id number] [place] [address]- 1404 Mar, [facility] [place] [facility] [address] [id number] [place] [address]- 8240 Feb, [facility] [place] [facility] [address] [id number] [place] [address]- 0758 Nov, [facility] [place] [facility] [address] [id number] [place] [address]- 5362 Oct, [facility] [place] [facility] [address] [id number] [place] [address]- 1352 Oct, [facility] [place] [facility] [address] [id number] [place] [address]- 0461 Oct, [facility] [place] [facility] [address] [id number] [place] [address]- 3009 Oct, [facility] [place] [facility] [address] [id number] [place] [address]- 8146 Oct, [facility] [place] [facility] [address] [id number] [place] [address]- 5060 Sep, [facility] [place] [facility] [address] [id number] [place] [address]- 9557 Sep, [facility] [place] [facility] [address] [id number] [place] [address]- 5668 Jul, [facility] [place] [facility] [address] [id number] [place] [address]- 0896 Jul, [facility] [place] [facility] [address] [id number] [place] [address]- 4632 May, [facility] [place] [facility] [address] [id number] [place] [address]- 7196 06 May, 2011 [facility] [address] [id number] [place] [id number] 05 May, 2011 [facility] [place] [facility] [address] [id number], [place] [address]- 1042 04 May, 2011 [facility] [place] [facility] [address] [id number] [place] [address]- 2276 04 May, 2011 [facility] [place] [facility] [address] [id number], [place] [address]- 8575 May, 2011 [facility] [place] [facility] [address] [id number] [place] [address]- 5473 Apr, [facility] [place] [facility] [address] [id number][place] [address]- 5920 Apr, [facility] [place] [facility] [address] [id number], [place] [address]- 4018 Apr, [facility] [place] [facility] [address] [id number] [address]- 3233 Mar, [facility] [place] [facility] [address] [id number][place] [address]- 8362 Mar, [facility] [place] [facility] [address] [facility] [id number], [place] [address]- 5346 Mar, [facility] [place] [facility] [address] [id number][place] [address]- 9586 Mar, [facility] [place] [facility] [address] [id number], [place] [address]- 1207 Feb, [facility] [place] [facility] [address] [id number] [place] [id number] Feb, [facility] [place] [facility] [address] [id number], [place] [address]- 5809 Feb, [facility] [place] [facility] [address] [id number] [place] [id number] Feb, [facility] [place] [facility] [address] [id number], [place] [address]- 2696 Feb, [facility] [address] [id number] [place] [address]- 5465 Feb, [facility] [address] [id number], [place] [id number] January, [facility] [address] [id number] [place] [address]- 1976 January, [facility] [place] [facility] [address] [id number], [place] [id number] January, [facility] [place] [facility] [address] [id number] [place] [address]- 7416 January, [facility] [place] [facility] [address] [id number][place] 6158410[address] January, [facility] [place] [facility] [address] [id number][place] [address]- 0982 January, [facility] [place] [facility] [address] [id number][place] [address]- 3528 January, [facility] [address] [id number][place] [address]- 6253 January, [facility] [place] [facility] [address] [id number] [place] [address]- 6751 Dec, [facility] [place] [facility] [address] [id number], [place] [address]- 4556 Dec, [facility] [place] [facility] [address] [id number][place] [address]- 1202 Dec, [facility] [place] [facility] [address] [id number] [place] [address]- 3361 Dec, [facility] [place] [facility] [address] [id number][place] [address]- 8537 Dec, [facility] [address] [id number] [place] [id number] Dec, [facility] [place] [facility] [address] [id number], [place] [address]- 3866 Nov, [facility] [address] [id number][place] [address]- 0213 Nov, [facility] [address] [facility] [id number][place] [address] Nov, [facility] [address] [id number][place] [id number] Oct, [facility] [place] [facility] [address] [id number] [id number] Oct, [facility] [address] [id number], [place] [address] Oct, [facility] [address] [facility] [id number] [id number] Sep, [facility] [address] [id number][place] [address] Sep, [facility] [address] [facility] [place] [id number][place] [id number] Sep, [facility] [address] [facility] [id number][place] [id number] Sep, [facility] [address] [facility] [facility] [id number][place] [address] Aug, [facility] [place] [facility] [address] [facility] [address] [facility] [id number][place] [address] Aug, [facility] [place] [facility] [address] [id number][place] [address] Aug, [facility] [place] [facility] [address] [facility] [address] [facility] [id number][place] [address] Aug, [facility] [place] [facility] [address] [facility] [address] [facility] [id number][place] [address] Jul, [facility] [place] [facility] [address] [facility] [address] [facility] [id number], [place] [address] Jul, [facility] [place] [facility] [address] [facility] [address] [facility] [id number], [place] [address] 13 May, 2011 [facility] [place] [facility] [address] [id number] [place] [address] 10 Jan, 2011 [facility] [place] [facility] [address] [id number] [place] [address] 20 Dec, 2010 [facility] [place] [facility] [address] [id number] [place] [address] 18 Nov, 2010 [facility] [place] [facility] [address] [id number] [place] [address] 28 Aug, 2010 [facility] [place] [facility] [address] [id number] [place] [address] 28 Aug, 2010 [facility] [place] [facility] [address] [id number] [place] [address] Aug, [facility] [address] [id number] [place] [address] 08 Aug, 2010 [facility] [place] [facility] [address] [id number] [place] [address] Aug, [facility] [place] [facility] [address] [id number] [place] [address] Aug, [facility] [place] [facility] [address] [id number] [place] [address] 27 Jun, 2010 [facility] [place] [facility] [address] [id number][place] [address] 26 Jun, 2010 [facility] [place] [facility] [address] [id number], [place] [address] 13 Jun, 2010 [facility] [place] [facility] [address] [id number] [place] [address] 12 Jun, 2010 [facility] [place] [facility] [address] [id number] [place] [address] 12 Jun, 2010 [facility] [place] [facility] [address] [id number] [place] [address] 14 May, 2010 [facility] [place] [facility] [address] [facility] [address] [facility] [id number] [place] [id number] 10 May, 2010 IMMUNIZATIONS No Known Immunizations SOCIAL HISTORY Never Assessed REASON FOR VISIT Mammogram PLAN OF CARE VITAL SIGNS MEDICATIONS Unknown [...]
--- OUTSIDE RECORDS SUMMARY | 2019-01-13 10:00 | XMS REPORT ---
Author Author ELLA ANN [facility] HERNANDEZ Address [address] [place] [address] Care Team Providers Care Law Enforcement Instructor Name Role Phone ELLA ANN Unavailable PROBLEMS Type Condition ICD9-CM Code RDE36-YV Code Onset Dates Condition Status SNOMED Code Problem Enlarged thyroid E01.0 Active 48464879 Problem H/O breast augmentation Z98.82 Active 901146052 Problem COPD exacerbation J44.1 Active 278128771 Problem History of breast augmentation Z98.82 Active 103819607 Problem Decreased hearing of left ear H91.92 Active 441228919 Problem Chronic sinusitis, unspecified location J32.9 Active 15539955 Problem Chronic sinusitis of both maxillary sinuses J32.0 Active [id number] Problem Atelectasis J98.11 Active 92573641 Problem Severe persistent asthma with exacerbation J45.51 Active 147647109 Problem Primary osteoarthritis, left ankle and foot M19.072 Active 67115188 Problem Chronic obstructive pulmonary disease, unspecified J44.9 Active 302048512 Problem Primary osteoarthritis of right foot M19.071 Active 877925716 Problem Right wrist effusion M25.431 Active 463691371 Problem Arthritis of both hips M12.9 Active 19074080 Problem Hyperthyroidism E05.90 Active 09555498 Problem Essential hypertension I10 Active 05250953 Problem Atrial fibrillation, unspecified type I48.91 Active 28746424 Problem Depressive disorder, not elsewhere classified F32.9 Active 45165643 Problem Rosacea L71.9 Active 890131701 ALLERGIES No Information ENCOUNTERS Encounter Location Date Diagnosis [facility] [address] [id number] [place] [id number] Apr, [facility] [address] [facility] [id number] [place] [id number] Mar, [facility] [address] [id number] [id number] Mar, Dental examination Z01.20 [facility] [address] [id number] [place] [id number] Feb, [facility] [address] [id number][place] [id number] Feb, [facility] [address] [id number] [place] [address] Feb, [facility] [address] [id number] [id number] Feb, [facility] [address] [id number][place] [id number] January, [facility] [id number] [place] [address] [id number] January, Breast tenderness in female N64.4 ; Atypical chest pain R07.89 and History of breast augmentation Z98.82 [facility] [id number][place] [address] Dec, Jaw pain R68.84 [facility] [address] [id number][place] [id number] Dec, [facility] [id number], [place] [address] Dec, Chronic sinusitis, unspecified location J32.9 ; Swelling of left side of face R22.0 and Decreased hearing of left ear H91.92 [facility] [address] [address] [id number] [id number] Nov, Dental examination Z01.20 [facility] [address] [id number][place] [address] Nov, Chronic obstructive pulmonary disease, unspecified J44.9 [facility] [address] [id number][place] [address] Oct, Chronic obstructive pulmonary disease, unspecified J44.9 [facility] [address] [id number][place] [id number] Sep, [facility] [address] [id number][place] [id number] Sep, [address] [id number][place] [address] Sep, Atelectasis J98.11 and Severe persistent asthma with exacerbation J45.[address] [place] [address] [id number] Sep, [place] [id number] [place] [address] [id number] Sep, Cough R05 ; Shortness of breath R06.02 ; Low oxygen saturation R79.81 ; Wheezing R06.2 ; Decreased breath sounds at right lung base R09.89 ; Fever, unspecified fever cause R50.9 and COPD exacerbation J44.[address] [id number], [place] [id number] Aug, Chronic sinusitis, unspecified location J32.9 and Acute mucoid otitis media of left ear H65.112 [place] [id number] [place] [address] [id number] Aug, Medial epicondylitis of left elbow M77.02 ; Chronic sinusitis of both maxillary sinuses J32.0 and History of sinus surgery Z98.8[address] [place] [address] [id number] Jul, [place] [id number] [place] [address] [id number] Jul, [address] [place] [address] [id number] Jul, Atrial fibrillation, unspecified type I48.91 ; Enlarged thyroid E01.0 ; Hyperthyroidism E05.90 and Pre-diabetes R73.[address] [place] [address] [id number] Jul, Elevated blood sugar R73.9 [place] [id number] [place] [address] [id number] Jul, Atrial fibrillation, unspecified type I48.91 and Hyperthyroidism E05.90 [facility] [id number] [place] [id number]- 9356 Jul, Atrial fibrillation, unspecified type I48.91 and Hyperthyroidism E05.90 [place] [id number] [place] [address] [id number] Jun, Acute recurrent frontal sinusitis J01.11 [place] [address] [id number] Jun, [address] [id number] May, Screening breast examination Z12.31 and H/O breast augmentation Z98.82 [place] [id number] [place] [address] [id number] May, [address] [id number] May, Nasal polyp J33.9 and Acute non-recurrent frontal sinusitis J01.[address] [id number] May, COPD exacerbation J44.[address] [id number] Apr, [address] [id number] January, Enlarged thyroid E01.0 and COPD exacerbation J44.1 [place] [id number] [place] [address] [id number] January, Chronic obstructive pulmonary disease, unspecified J44.9 [place] [id number] [place] [address] [id number] Dec, [place] [id number] [place] [address] [id number] Dec, [place] [id number] [place] [address] [id number] Dec, Cough R05 ; Shortness of breath R06.02 ; Urinary frequency R35.0 and Chronic obstructive pulmonary disease, unspecified J44.9 [place] [id number] [place] [address] [id number] Nov, Bronchitis J40 and Cough R05 [address] [id number] Aug, Pain of left hand M79.642 ; Atrial fibrillation, unspecified type I48.91 and Screening for hyperlipidemia Z13.[address] [id number] Aug, [address] [id number] Aug, Pain of left foot M79.672 ; Pain in right foot M79.671 ; Pain of left hand M79.642 ; Pain in right hand M79.641 ; Screening for hyperlipidemia Z13.220 and Atrial fibrillation, unspecified type I48.[address] [id number] Jul, Rash R21 ; Arthritis of both hips M12.9 ; Depressive disorder, not elsewhere classified F32.9 ; Atrial fibrillation, unspecified type I48.91 ; Hyperthyroidism E05.90 and Chronic obstructive pulmonary disease, unspecified J44.9 [facility] [address] [address] Jun, [facility] [address] [address] Jun, Rosacea L71.[address] [id number] Jun, Rosacea L71.9 and Oral herpes simplex infection B00.[address] [id number] Jun, Rash R21 [address] [id number] Jun, Asthma exacerbation J45.[address] [id number] Apr, [address] [id number] Apr, Acute diffuse otitis externa of right ear H60.311 and Rash R21 [facility] [address] [address] Feb, Rash R21 [facility] [address]005[address]100[place] [address] Feb, [facility] [id number] [place] [address] [id number] January, Hyperthyroidism E05.90 [facility] [id number] [place] [address] [id number] January, Atrial fibrillation, unspecified type I48.91 and Hyperthyroidism E05.90 [facility] [address] [place] [address]- [address] January, [facility] [id number] [place] [address] [id number] January, Atrial fibrillation, unspecified type I48.91 [place] [id number] [place] [address] [id number] Dec, Asthma exacerbation J45.901 [facility] [address] [id number] Dec, [facility] [id number] [place] [address] [id number] Oct, Acute maxillary sinusitis, recurrence not specified J01.00 and Acute cystitis with hematuria N30.01 [place] [id number] [place] [address] [id number] Oct, Sinusitis J32.9 [place] [id number] [place] [address] [id number] Sep, Chronic obstructive pulmonary disease, unspecified J44.9 ; Depressive disorder, not elsewhere classified F32.9 ; Arthritis of both hips M12.9 and Essential hypertension I10 [facility] [address] [id number] [id number] Sep, [place] [id number] [place] [address] [id number] Sep, [address] [place] [address] [id number] Sep, Right hip pain M25.551 [place] [id number] [address] Sep, [facility] [id number][place] [id number] Sep, [facility] [id number] [place] [address] [id number] Sep, Hemoptysis R04.2 ; Pain in right hip M25.551 and Pain in left hip M25.552 [facility] [id number] [place] [address] [id number] Aug, [facility] [id number] [place] [address] [id number] Aug, Sinusitis J32.9 ; Cough R05 and Wheezing R06.2 [facility] [address] [id number] [id number] May, [facility] [id number] [place] [address] [id number] May, [facility] [id number] [place] [address] [id number] May, [facility] [id number] [place] [address] [id number] Apr, Chronic airway obstruction, not elsewhere classified 496 [facility] [id number] [place] [address] [id number] Apr, [facility] [id number] [place] [address] [id number] Apr, Bronchitis, chronic obstructive, with exacerbation 491.21 [facility] [id number], [place] [id number] Mar, [facility] [id number] [place] [address] [id number] Mar, Asthma, unspecified, with (acute) exacerbation 493.92 and Rhinitis 472.0 [facility] [id number], [place] [id number] Feb, [facility] [id number] [place] [address] [id number] Feb, [facility] [id number] [place] [address] [id number] Feb, Pituitary incidentaloma 227.3 and Abnormal MRI of the head 793.0 [address]00565100[place] [id number] Feb, [address] [place] [address] [id number] January, Muscle weakness of lower extremity 728.87 ; Abnormal involuntary movements 781.0 ; Unspecified otitis media 382.9 and Other general symptoms 780.[address] [place] [address] [id number] January, Acute sinusitis, unspecified 461.9 and Muscle weakness of lower extremity 728.[address] [place] [address] [id number] January, Bronchitis 490 and Cough 786.[address] [id number], [place] [id number] Dec, [address] [place] [address] [id number] Dec, [address] [place] [address] [id number] Dec, [facility] [id number] [place] [address]- 3564 Dec, [facility] [id number] [place] [address] [id number]- 4341 Dec, [facility] [id number] [place] [address] 76115- 2831 Oct, [facility] [id number] [place] [address] 56651- 2858 Oct, [facility] [id number] [place] [address] 901711- 5834 Oct, [facility] [id number] [place] [address] 517325- 0971 Oct, [facility] [id number] [place] [address] [id number]- 5433 Oct, [facility] [place] [facility] [address] [facility] [id number] [place] [address]- 8186 Oct, 2014 [facility] [place] [facility] [address] [facility] [id number] [place] [address]- 2546 Oct, 2014 [facility] [address] [facility] [id number] [place] [id number] Oct, 2014 [facility] [place] [facility] [address] [facility] [id number] [place] [address]- 2546 Oct, 2014 [facility] [place] [facility] [address] [facility] [id number] [place] [address]- 2546 Oct, 2014 [facility] [place] [facility] [address] [facility] [id number] [place] [address]- 2546 Oct, 2014 [facility] [address] [id number][place] [id number] Aug, [facility] [place] [facility] [address] [facility] [id number] [place] [address]- 5[address] Aug, [facility] [address] [facility] [id number] [place] [id number] Jul, [facility] [place] [facility] [address] [facility] [id number] [place] [address]- 2546 Jul, [facility] [place] [facility] [address] [facility] [id number] [place] [address]- 8126 Jun, [facility] [address] [facility] [id number][place] [id number] Jun, [facility] [place] [facility] [address] [facility] [id number] [place] [address]- 2546 14 Jun, 2014 [facility] [address] [facility] [id number][place] [id number] Jun, [facility] [place] [facility] [address] [facility] [id number] [place] [address]- 2546 Jun, [facility] [address] [facility] [id number][place] [id number] 18 May, 2014 [facility] [place] [facility] [address] [id number] [place] [address]- 3[address] 18 May, 2014 [facility] [address] [facility] [id number] [place] [id number] May, [facility] [place] [facility] [address] [id number] [place] [address]- 9826 May, [facility] [address] [facility] [id number] [place] [id number] May, [facility] [place] [facility] [address] [id number] [place] [address]- 2358 May, [facility] [place] [facility] [address] [facility] [id number] [place] [address]- 4535 Mar, [facility] [place] [facility] [address] [facility] [id number] [place] [address]- 8169 Mar, [facility] [address] [facility] [id number][place] [id number] January, [facility] [place] [facility] [address] [facility] [id number] [place] [address]- 9658 January, [facility] [address] [facility] [id number] [place] [id number] Oct, [facility] [place] [facility] [address] [facility] [id number] [place] [address]- 8874 Oct, [facility] [place] [facility] [address] [facility] [id number] [place] [address]- 4522 Jul, [facility] [place] [facility] [address] [id number] [place] [address]- 1547 Jun, [facility] [place] [facility] [address] [facility] [id number] [place] [address]- 1420 Jun, [facility] [place] [facility] [address] [facility] [id number] [place] [address]- 4157 May, [facility] [place] [facility] [address] [facility] [id number] [place] [address]- 0670 May, [facility] [place] [facility] [address] [id number] [place] [address]- 1262 Apr, [facility] [address] [id number] [place] [address]- 8949 Apr, [facility] [place] [facility] [address] [id number] [place] [address]- 1444 Mar, [facility] [address] [id number] [place] [address]- 4099 Feb, [facility] [place] [facility] [address] [id number] [place] [address]- 9417 Nov, [facility] [address] [id number] [place] [address]- 7918 Oct, [facility] [place] [facility] [address] [id number] [place] [address]- 9184 Oct, [facility] [address] [id number] [place] [address]- 7709 Oct, [facility] [address] [id number] [place] [address]- 8404 Oct, [facility] [address] [id number] [place] [address]- 5633 Oct, [facility] [address] [facility] [id number] [place] [address]- 6686 Sep, [facility] [place] [facility] [address] [id number] [place] [address]- 2254 Sep, [facility] [place] [facility] [address] [id number] [place] [address]- 0206 Jul, [facility] [place] [facility] [address] [id number] [place] [address]- 5581 Jul, [facility] [place] [facility] [address] [id number] [place] [address]- 2546 May, [facility] [place] [facility] [address] [id number] [place] [address] 2548 May, [facility] [address] [id number] [place] [id number] 05 May, 2011 [facility] [place] [facility] [address] [id number] [place] [address]- 8606 04 May, 2011 [facility] [place] [facility] [address] [id number] [place] [address]- 2546 04 May, 2011 [facility] [place] [facility] [address] [id number] [place] [address]- 2546 May, [facility] [place] [facility] [address] [id number] [place] [address]- 1806 Apr, [facility] [place] [facility] [address] [id number] [place] [address]- 8926 Apr, [facility] [address] [id number] [place] [address]- 9412 Apr, [facility] [place] [facility] [address] [id number] [place] [address]- 3473 Mar, [facility] [place] [facility] [address] [id number] [place] [address]- 5564 Mar, [facility] [place] [facility] [address] [id number] [place] [address]- 9712 Mar, [facility] [place] [facility] [address] [id number] [place] [address]- 2546 Mar, [facility] [place] [facility] [address] [id number] [place] [address]- 2546 Feb, [facility] [place] [facility] [address] [id number] [place] [id number] Feb, [facility] [place] [facility] [address] [id number] [place] [address]- 2546 Feb, [facility] [place] [facility] [address] [id number] [place] [id number] Feb, [facility] [place] [facility] [address] [id number] [place] [address]- 2546 Feb, [facility] [address] [id number] [place] [address]- 2546 Feb, [facility] [address] [id number] [place] [id number] January, [facility] [address] [id number] [place] [address]- 2546 January, [facility] [address] [id number] [place] [address] January, [facility] [address] [id number] [place] [address]- 2546 January, [facility] [address] [id number] [place] [id number] January, [facility] [address] [id number] [place] [address]- 6566 January, [facility] [address] [id number] [place] [address]- 2546 January, [facility] [address] [id number] [place] [address]- 7926 January, [facility] [address] [id number] [place] [address]- 7946 Dec, [facility] [address] [id number] [place] [address]- 2676 Dec, [facility] [address] [id number] [place] [address]- 2546 Dec, [facility] [address] [id number] [place] [address]- 9076 Dec, [facility] [place] [facility] [address] [id number] [place] [address]- 0386 Dec, [facility] [address] [id number] [place] [id number] Dec, [facility] [place] [facility] [address] [id number] [place] [address]- 4876 Nov, [facility] [address] [id number] [place] [address]- 8627 Nov, [facility] [address] [id number] [place] [address]- 2546 Nov, [facility] [address] [id number] [place] [id number] Oct, [facility] [address] [id number] [place] [id number] Oct, [facility] [address] [id number] [place] [address] Oct, [facility] [address] [id number] [id number] Sep, [facility] [address] [facility] [id number] [place] [address] Sep, [facility] [address] [id number] [id number] Sep, [facility] [address] [facility] [id number] [id number] Sep, [facility] [address] [facility] [id number] [place] [address] Aug, [facility] [address] [facility] [id number] [place] [address] Aug, [facility] [place] [facility] [address] [facility] [id number] [place] [address] Aug, [facility] [place] [facility] [address] [facility] [id number] [place] [address] Aug, [facility] [place] [facility] [address] [facility] [id number] [place] [address] 17 Jul, 2011 [facility] [place] [facility] [address] [facility] [id number] [place] [address] 02 Jul, 2011 [facility] [place] [facility] [address] [facility] [id number] [place] [address] 13 May, 2011 [facility] [place] [facility] [address] [id number] [place] [address] 10 Jan, 2011 [facility] [place] [facility] [address] [id number] [place] [address] 20 Dec, 2010 [facility] [place] [facility] [address] [id number] [place] [address] 18 Nov, 2010 [facility] [place] [facility] [address] [id number] [place] [address] Aug, [facility] [address] [id number] [place] [address] Aug, [facility] [place] [facility] [address] [id number] [place] [address] Aug, [facility] [address] [id number] [place] [address] Aug, [facility] [place] [facility] [address] [id number] [place] [address] Aug, [facility] [place] [facility] [address] [id number] [place] [address] Aug, [facility] [place] [facility] [address] [id number] [place] [address] 27 Jun, 2010 [facility] [place] [facility] [address] [id number] [place] [address] 26 Jun, 2010 [facility] [place] [facility] [address] [id number] [place] [address] 13 Jun, 2010 [facility] [place] [facility] [address] [id number] [place] [address] 12 Jun, 2010 [facility] [place] [facility] [address] [id number] [place] [address] 12 Jun, 2010 [facility] [place] [facility] [address] [id number] [place] [address] 14 May, 2010 [facility] [place] [facility] [address] [id number] [place] [address] 10 May, 2010 IMMUNIZATIONS No Known Immunizations SOCIAL HISTORY Never Assessed REASON FOR VISIT Update Demographics - Personal Info PLAN OF CARE VITAL SIGNS MEDICATIONS Unknown [...] section 1992, 1996, 2002 Surgical History tummy angela 2002 Surgical History Sinus Surgery 2017 Hospitalization History childbirth, surgeries Hospitalization History [facility] Af[facility] w/ [facility], HTN, COPD 01/24/16 Hospitalization History A Fib February 2016
--- OUTSIDE RECORDS SUMMARY | 2019-01-13 10:01 | XMS REPORT ---
Author Author ELLA ANN [facility] HERNANDEZ Address [address] [place] [address] Care Team Providers Care Utility Bag Assembler Name Role Phone ELLA ANN Unavailable PROBLEMS Type Condition ICD9-CM Code XED17-WO Code Onset Dates Condition Status SNOMED Code Problem Enlarged thyroid E01.0 Active 89635028 Problem H/O breast augmentation Z98.82 Active 366283761 Problem COPD exacerbation J44.1 Active 560060661 Problem History of breast augmentation Z98.82 Active 670855416 Problem Decreased hearing of left ear H91.92 Active 241966926 Problem Chronic sinusitis, unspecified location J32.9 Active 85264367 Problem Chronic sinusitis of both maxillary sinuses J32.0 Active [id number] Problem Atelectasis J98.11 Active 53135381 Problem Severe persistent asthma with exacerbation J45.51 Active 531849695 Problem Primary osteoarthritis, left ankle and foot M19.072 Active 72741207 Problem Chronic obstructive pulmonary disease, unspecified J44.9 Active 658878231 Problem Primary osteoarthritis of right foot M19.071 Active 924088442 Problem Right wrist effusion M25.431 Active 684548528 Problem Arthritis of both hips M12.9 Active 29522954 Problem Hyperthyroidism E05.90 Active 87710836 Problem Essential hypertension I10 Active 23914871 Problem Atrial fibrillation, unspecified type I48.91 Active 22517239 Problem Depressive disorder, not elsewhere classified F32.9 Active 63218102 Problem Rosacea L71.9 Active 302583729 ALLERGIES No Information ENCOUNTERS Encounter Location Date Diagnosis [facility] [address] [id number] [place] [id number] Apr, [facility] [address] [facility] [id number] Mar, [facility] [employer] [address] [id number] [id number] Mar, Dental examination Z01.20 [facility] [address] [id number] [place] [id number] Feb, [facility] [address] [id number][place] [id number] Feb, [facility] [address] [id number] [place] [id number] Feb, [facility] [address] [id number][place] [id number] Feb, [facility] [address] [id number][place] [id number] January, [facility] [id number] [place] [address] [id number] January, Breast tenderness in female N64.4 ; Atypical chest pain R07.89 and History of breast augmentation Z98.82 [facility] [id number], [place] [id number] Dec, Jaw pain R68.84 [facility] [address] [id number][place] [id number] Dec, [facility] [id number], [place] [id number] Dec, Chronic sinusitis, unspecified location J32.9 ; Swelling of left side of face R22.0 and Decreased hearing of left ear H91.92 [facility] [address] [id number][place] [id number] Nov, Dental examination Z01.20 [facility] [address] [id number], [place] [address] Nov, Chronic obstructive pulmonary disease, unspecified J44.9 [facility] [address] [id number][place] [id number] Oct, Chronic obstructive pulmonary disease, unspecified J44.9 [facility] [address] [id number], [place] [id number] Sep, [facility] [address] [id number][place] [id number] Sep, [address] [id number], [place] [id number] Sep, Atelectasis J98.11 and Severe persistent asthma with exacerbation J45.[address] [place] [address] [id number] Sep, [id number] [place] [address] [id number] Sep, Cough R05 ; Shortness of breath R06.02 ; Low oxygen saturation R79.81 ; Wheezing R06.2 ; Decreased breath sounds at right lung base R09.89 ; Fever, unspecified fever cause R50.9 and COPD exacerbation J44.[address] [id number], [place] [id number] Aug, Chronic sinusitis, unspecified location J32.9 and Acute mucoid otitis media of left ear H65.112 [id number] [place] [address] [id number] Aug, Medial epicondylitis of left elbow M77.02 ; Chronic sinusitis of both maxillary sinuses J32.0 and History of sinus surgery Z98.890 [address] [place] [address] [id number] Jul, [id number] [place] [address] [id number] Jul, [address] [place] [address] [id number] Jul, Atrial fibrillation, unspecified type I48.91 ; Enlarged thyroid E01.0 ; Hyperthyroidism E05.90 and Pre-diabetes R73.[address] [place] [address] [id number] Jul, Elevated blood sugar R73.9 [id number] [place] [address] [id number] Jul, Atrial fibrillation, unspecified type I48.91 and Hyperthyroidism E05.90 [facility] [id number] [place] [address] [id number]- 1146 Jul, Atrial fibrillation, unspecified type I48.91 and Hyperthyroidism E05.90 [place] [id number] [place] [address] [id number] Jun, Acute recurrent frontal sinusitis J01.11 [place] [address] [id number] Jun, [address] [id number] May, Screening breast examination Z12.31 and H/O breast augmentation Z98.82 [id number] [place] [address] [id number] May, [address] [id number] May, Nasal polyp J33.9 and Acute non-recurrent frontal sinusitis J01.[address] [id number] May, COPD exacerbation J44.[address] [id number] Apr, [address] [id number] January, Enlarged thyroid E01.0 and COPD exacerbation J44.1 [id number] [place] [address] [id number] January, Chronic obstructive pulmonary disease, unspecified J44.9 [id number] [place] [address] [id number] Dec, [id number] [place] [address] [id number] Dec, [id number] [place] [address] [id number] Dec, Cough R05 ; Shortness of breath R06.02 ; Urinary frequency R35.0 and Chronic obstructive pulmonary disease, unspecified J44.9 [id number] [place] [address] [id number] Nov, Bronchitis J40 and Cough R05 [address] [id number] Aug, Pain of left hand M79.642 ; Atrial fibrillation, unspecified type I48.91 and Screening for hyperlipidemia Z13.[address] [id number] Aug, [address] [id number] Aug, Pain of left foot M79.672 ; Pain in right foot M79.671 ; Pain of left hand M79.642 ; Pain in right hand M79.641 ; Screening for hyperlipidemia Z13.220 and Atrial fibrillation, unspecified type I48.[address] [id number] Jul, Rash R21 ; Arthritis of both hips M12.9 ; Depressive disorder, not elsewhere classified F32.9 ; Atrial fibrillation, unspecified type I48.91 ; Hyperthyroidism E05.90 and Chronic obstructive pulmonary disease, unspecified J44.9 [facility] [address] [address] Jun, [facility] [address] [address] Jun, Rosacea L71.[address] [id number] Jun, Rosacea L71.9 and Oral herpes simplex infection B00.[address] [id number] Jun, Rash R21 [address] [id number] Jun, Asthma exacerbation J45.[address] [id number] Apr, [address] [id number] Apr, Acute diffuse otitis externa of right ear H60.311 and Rash R21 [facility] [address] [address] Feb, Rash R21 [facility] [address]005[place] [address] Feb, [facility] [id number] [place] [address] [id number] January, Hyperthyroidism E05.90 [facility] [id number] [place] [address] [id number] January, Atrial fibrillation, unspecified type I48.91 and Hyperthyroidism E05.90 [facility] [address] [place] [address]- [address] January, [facility] [id number] [place] [address] [id number] January, Atrial fibrillation, unspecified type I48.91 [address] [address] [place] [address] [id number] Dec, Asthma exacerbation J45.901 [facility] [address] [id number] Dec, [facility] [id number] [place] [address] [id number] Oct, Acute maxillary sinusitis, recurrence not specified J01.00 and Acute cystitis with hematuria N30.01 [id number] [place] [address] [id number] Oct, Sinusitis J32.9 [address] [place] [address] [id number] Sep, Chronic obstructive pulmonary disease, unspecified J44.9 ; Depressive disorder, not elsewhere classified F32.9 ; Arthritis of both hips M12.9 and Essential hypertension I10 [facility] [address] [id number][place] [id number] Sep, [place] [id number] [place] [address] [id number] Sep, [address] [place] [address] [id number] Sep, Right hip pain M25.551 [place] [address] [id number] [id number] Sep, [facility] [id number], [place] [id number] Sep, [facility] [id number] [place] [address] [id number] Sep, Hemoptysis R04.2 ; Pain in right hip M25.551 and Pain in left hip M25.552 [facility] [id number] [place] [address] [id number] Aug, [facility] [id number] [place] [address] [id number] Aug, Sinusitis J32.9 ; Cough R05 and Wheezing R06.2 [facility] [address] [id number] [id number] May, [facility] [id number] [place] [address] [id number] May, [facility] [id number] [place] [address] [id number] May, [facility] [id number] [place] [address] [id number] Apr, Chronic airway obstruction, not elsewhere classified 496 [facility] [id number] [place] [address] [id number] Apr, [facility] [id number] [place] [address] [id number] Apr, Bronchitis, chronic obstructive, with exacerbation 491.21 [facility] [id number], [place] [id number] Mar, [facility] [id number] [place] [address] [id number] Mar, Asthma, unspecified, with (acute) exacerbation 493.92 and Rhinitis 472.0 [facility] [id number], [place] [id number] Feb, [facility] [id number] [place] [address] [id number] Feb, [facility] [id number] [place] [address] [id number] Feb, Pituitary incidentaloma 227.3 and Abnormal MRI of the head 793.0 [address] [id number] Feb, [address] [place] [address] [id number] January, Muscle weakness of lower extremity 728.87 ; Abnormal involuntary movements 781.0 ; Unspecified otitis media 382.9 and Other general symptoms 780.[address] [place] [address] [id number] January, Acute sinusitis, unspecified 461.9 and Muscle weakness of lower extremity 728.87 [address] [place] [address] [id number] January, Bronchitis 490 and Cough 786.[address] [id number][place] [id number] Dec, [address] [place] [address] [id number] Dec, [address] [place] [address] [id number] Dec, [facility] [id number] [place] [address] 29835- 7130 Dec, [facility] [id number] [place] [address] [id number]- 5975 Dec, [facility] [id number] [place] [address] 58264- 6952 Oct, [facility] [id number] [place] [address] 13943- 0726 Oct, [facility] [id number] [place] [address] 068839- 2518 Oct, [facility] [id number] [place] [address] 908859- 3636 Oct, [facility] [id number] [place] [address] 034872- 2602 Oct, [facility] [place] [facility] [address] [facility] [id number] [place] [address]- 5316 Oct, 2014 [facility] [place] [facility] [address] [facility] [id number] [place] [address]- 2546 Oct, 2014 [facility] [address] [facility] [id number] [place] [id number] Oct, 2014 [facility] [place] [facility] [address] [facility] [id number] [place] [address]- 2546 Oct, 2014 [facility] [place] [facility] [address] [facility] [id number] [place] [address]- 2546 Oct, 2014 [facility] [place] [facility] [address] [facility] [id number] [place] [address]- 2546 Oct, 2014 [facility] [address] [id number][place] [id number] Aug, [facility] [place] [facility] [address] [facility] [id number], [place] [address]- 4296 Aug, [facility] [address] [facility] [id number] [place] [id number] Jul, [facility] [place] [facility] [address] [facility] [id number], [place] [address]- 2546 Jul, [facility] [place] [facility] [address] [facility] [id number], [place] [address]- 0676 Jun, [facility] [address] [facility] [id number], [place] [id number] Jun, [facility] [place] [facility] [address] [facility] [id number], [place] [address]- 2546 14 Jun, 2014 [facility] [address] [facility] [id number], [place] [id number] Jun, [facility] [place] [facility] [address] [facility] [id number], [place] [address]- 2546 Jun, [facility] [address] [facility] [id number][place] [id number] 18 May, 2014 [facility] [place] [facility] [address] [id number], [place] [address]- 8312 18 May, 2014 [facility] [address] [facility] [id number] [place] [id number] May, [facility] [place] [facility] [address] [id number] [place] [address]- 9346 May, [facility] [address] [facility] [id number] [place] [id number] May, [facility] [place] [facility] [address] [id number], [place] [address]- 2455 May, [facility] [place] [facility] [address] [facility] [id number] [place] [address]- 6587 Mar, [facility] [place] [facility] [address] [facility] [id number] [place] [address]- 5551 Mar, [facility] [address] [facility] [id number], [place] [id number] January, [facility] [place] [facility] [address] [facility] [id number], [place] [address]- 1079 January, [facility] [address] [facility] [id number] [place] [id number] Oct, [facility] [place] [facility] [address] [facility] [id number], [place] [address]- 8368 Oct, [facility] [place] [facility] [address] [facility] [id number], [place] [address]- 8774 Jul, [facility] [place] [facility] [address] [id number], [place] [address]- 3477 Jun, [facility] [place] [facility] [address] [facility] [id number] [place] [address]- 5004 Jun, [facility] [place] [facility] [address] [facility] [id number], [place] [address]- 8545 May, [facility] [place] [facility] [address] [facility] [id number] [place] [address]- 5543 May, [facility] [place] [facility] [address] [id number] [place] [address]- 5192 Apr, [facility] [address] [id number] [place] [address]- 4743 Apr, [facility] [place] [facility] [address] [id number] [place] [address]- 8500 Mar, [facility] [address] [id number] [place] [address]- 0376 Feb, [facility] [place] [facility] [address] [id number] [place] [address]- 6545 Nov, [facility] [address] [id number] [place] [address]- 6877 Oct, [facility] [place] [facility] [address] [id number] [place] [address]- 2349 Oct, [facility] [address] [id number] [place] [address]- 6194 Oct, [facility] [address] [id number] [place] [address]- 1753 Oct, [facility] [address] [id number] [place] [address]- 7328 Oct, [facility] [address] [facility] [id number] [place] [address]- 7524 Sep, [facility] [place] [facility] [address] [id number] [place] [address]- 4129 Sep, [facility] [place] [facility] [address] [id number] [place] [address]- 5616 Jul, [facility] [place] [facility] [address] [id number] [place] [address]- 4219 Jul, [facility] [place] [facility] [address] [id number] [place] [address]- 2546 May, [facility] [place] [facility] [address] [id number] [place] [address] 2549 May, [facility] [address] [id number] [place] [id number] 05 May, 2011 [facility] [place] [facility] [address] [id number] [place] [address]- 2466 04 May, 2011 [facility] [place] [facility] [address] [id number] [place] [address]- 2546 04 May, 2011 [facility] [place] [facility] [address] [id number] [place] [address]- 2546 May, [facility] [place] [facility] [address] [id number] [place] [address]- 5118 Apr, [facility] [place] [facility] [address] [id number] [place] [address]- 1566 Apr, [facility] [address] [id number] [place] [address]- 7973 Apr, [facility] [place] [facility] [address] [id number] [place] [address]- 8381 Mar, [facility] [place] [facility] [address] [id number] [place] [address]- 9930 Mar, [facility] [place] [facility] [address] [id number], [place] [address]- 4493 Mar, [facility] [place] [facility] [address] [id number] [place] [address]- 2546 Mar, [facility] [place] [facility] [address] [id number], [place] [address]- 2546 Feb, [facility] [place] [facility] [address] [id number] [place] [id number] Feb, [facility] [place] [facility] [address] [id number] [place] [address]- 2546 Feb, [facility] [place] [facility] [address] [id number][place] [id number] Feb, [facility] [place] [facility] [address] [id number] [place] [address]- 2546 Feb, [facility] [address] [id number] [place] [address]- 2546 Feb, [facility] [address] [id number] [place] [id number] January, [facility] [address] [id number] [place] [address]- 2546 January, [facility] [address] [id number] [place] [id number] January, [facility] [address] [id number] [place] [address]- 2546 January, [facility] [address] [id number] [place] [id number] January, [facility] [address] [id number] [place] [address]- 2876 January, [facility] [address] [id number] [place] [address]- 2546 January, [facility] [address] [id number] [place] [address]- 3686 January, [facility] [address] [id number] [place] [address]- 3226 Dec, [facility] [address] [id number] [place] [address]- 2496 Dec, [facility] [address] [id number], [place] [address]- 2546 Dec, [facility] [address] [id number] [place] [address]- 2306 Dec, [facility] [place] [facility] [address] [id number] [place] [address]- 4246 Dec, [facility] [address] [id number] [place] [id number] Dec, [facility] [place] [facility] [address] [id number], [place] [address]- 1466 Nov, [facility] [address] [id number] [place] [address]- 4595 Nov, [facility] [address] [id number] [place] [address]- 2546 Nov, [facility] [address] [id number] [place] [id number] Oct, [facility] [address] [id number] [place] [id number] Oct, [facility] [address] [id number] [place] [address] Oct, [facility] [address] [id number] [id number] Sep, [facility] [address] [facility] [id number], [place] [address] Sep, [facility] [address] [id number][place] [id number] Sep, [facility] [address] [facility] [id number][place] [id number] Sep, [facility] [address] [facility] [id number] [place] [address] Aug, [facility] [address] [facility] [id number], [place] [address] Aug, [facility] [place] [facility] [address] [facility] [id number] [place] [address] Aug, [facility] [place] [facility] [address] [facility] [id number], [place] [address] Aug, [facility] [place] [facility] [address] [facility] [id number] [place] [address] 17 Jul, 2011 [facility] [place] [facility] [address] [facility] [id number] [place] [address] 02 Jul, 2011 [facility] [place] [facility] [address] [facility] [id number], [place] [address] 13 May, 2011 [facility] [place] [facility] [address] [id number] [place] [address] 10 Jan, 2011 [facility] [place] [facility] [address] [id number] [place] [address] 20 Dec, 2010 [facility] [place] [facility] [address] [id number] [place] [address] 18 Nov, 2010 [facility] [place] [facility] [address] [id number] [place] [address] Aug, [facility] [address] [id number] [place] [address] Aug, [facility] [place] [facility] [address] [id number] [place] [address] Aug, [facility] [address] [id number] [place] [address] Aug, [facility] [place] [facility] [address] [id number] [place] [address] Aug, [facility] [place] [facility] [address] [id number] [place] [address] Aug, [facility] [place] [facility] [address] [id number] [place] [address] 27 Jun, 2010 [facility] [place] [facility] [address] [id number] [place] [address] 26 Jun, 2010 [facility] [place] [facility] [address] [id number], [place] [address] 13 Jun, 2010 [facility] [place] [facility] [address] [id number] [place] [address] 12 Jun, 2010 [facility] [place] [facility] [address] [id number] [place] [address] 12 Jun, 2010 [facility] [place] [facility] [address] [id number] [place] [address] 14 May, 2010 [facility] [place] [facility] [address] [id number], [place] [address] 10 May, 2010 IMMUNIZATIONS No Known Immunizations SOCIAL HISTORY Never Assessed REASON FOR VISIT Update Demographics - Additional Info PLAN OF CARE VITAL SIGNS MEDICATIONS [...] section 1992, 1996, 2002 Surgical History tummy dorick 2002 Surgical History Sinus Surgery 2017 Hospitalization History childbirth, surgeries Hospitalization History [facility] Afib w/ RVR, HTN, COPD 01/24/16 Hospitalization History A Fib February 2016
--- OUTSIDE RECORDS SUMMARY | 2019-01-13 10:01 | XMS REPORT ---
Author Author ELLA ANN [facility] HERNANDEZ Address [address] [place] [address] Care Team Providers Care Development Intern Name Role Phone ELLA ANN Unavailable PROBLEMS Type Condition ICD9-CM Code IJV95-KG Code Onset Dates Condition Status SNOMED Code Problem Enlarged thyroid E01.0 Active 93771007 Problem H/O breast augmentation Z98.82 Active 247608616 Problem COPD exacerbation J44.1 Active 001820856 Problem History of breast augmentation Z98.82 Active 965368411 Problem Decreased hearing of left ear H91.92 Active 558312138 Problem Chronic sinusitis, unspecified location J32.9 Active 97390986 Problem Chronic sinusitis of both maxillary sinuses J32.0 Active [id number] Problem Atelectasis J98.11 Active 09989043 Problem Severe persistent asthma with exacerbation J45.51 Active 773494828 Problem Primary osteoarthritis, left ankle and foot M19.072 Active 48729392 Problem Chronic obstructive pulmonary disease, unspecified J44.9 Active 752976145 Problem Primary osteoarthritis of right foot M19.071 Active 072472759 Problem Right wrist effusion M25.431 Active 462263848 Problem Arthritis of both hips M12.9 Active 76993087 Problem Hyperthyroidism E05.90 Active 39199112 Problem Essential hypertension I10 Active 76931123 Problem Atrial fibrillation, unspecified type I48.91 Active 39290916 Problem Depressive disorder, not elsewhere classified F32.9 Active 63585263 Problem Rosacea L71.9 Active 708212392 ALLERGIES No Information ENCOUNTERS Encounter Location Date Diagnosis [facility] [address] [id number] [place] [id number] Apr, [facility] [address] [facility] [id number] [place] [id number] Mar, [facility] [address] [address] [id number][place] [id number] Mar, Dental examination Z01.20 [facility] [address] [id number] [place] [id number] Feb, [facility] [address] [address] [id number][place] [id number] Feb, [facility] [address] [id number] [place] [id number] Feb, [facility] [address] [id number][place] [id number] Feb, [facility] [address] [id number][place] [id number] January, [facility] [id number] [place] [address] [id number] January, Breast tenderness in female N64.4 ; Atypical chest pain R07.89 and History of breast augmentation Z98.82 [facility] [id number], [place] [address] Dec, Jaw pain R68.84 [facility] [address] [id number], [place] [id number] Dec, [facility] [id number], [place] [address] Dec, Chronic sinusitis, unspecified location J32.9 ; Swelling of left side of face R22.0 and Decreased hearing of left ear H91.92 [facility] [address] [id number], [place] [id number] Nov, Dental examination Z01.20 [facility] [address] [id number], [place] [address] Nov, Chronic obstructive pulmonary disease, unspecified J44.9 [facility] [address] [id number][place] [address] Oct, Chronic obstructive pulmonary disease, unspecified J44.9 [facility] [address] [id number], [place] [id number] Sep, [facility] [address] [address] [id number], [place] [id number] Sep, [address] [id number][place] [address] Sep, Atelectasis J98.11 and Severe persistent asthma with exacerbation J45.[address] [place] [id number] Sep, [place] [id number] [place] [address] [id number] Sep, Cough R05 ; Shortness of breath R06.02 ; Low oxygen saturation R79.81 ; Wheezing R06.2 ; Decreased breath sounds at right lung base R09.89 ; Fever, unspecified fever cause R50.9 and COPD exacerbation J44.[address] [id number], [place] [address] Aug, Chronic sinusitis, unspecified location J32.9 and Acute mucoid otitis media of left ear H65.112 [place] [id number] [place] [address] [id number] Aug, Medial epicondylitis of left elbow M77.02 ; Chronic sinusitis of both maxillary sinuses J32.0 and History of sinus surgery Z98.890 [address] [place] [address] [id number] Jul, [place] [address] [id number] [place] [address] [id number] Jul, [address] [place] [address] [id number] Jul, Atrial fibrillation, unspecified type I48.91 ; Enlarged thyroid E01.0 ; Hyperthyroidism E05.90 and Pre-diabetes R73.[address] [place] [address] [id number] Jul, Elevated blood sugar R73.9 [place] [id number] [place] [address] [id number] Jul, Atrial fibrillation, unspecified type I48.91 and Hyperthyroidism E05.90 [facility] [id number] [place] [address] 59049820- 0769 Jul, Atrial fibrillation, unspecified type I48.91 and Hyperthyroidism E05.90 [place] [id number] [place] [address] [id number] Jun, Acute recurrent frontal sinusitis J01.11 [place] [address] [id number] Jun, [address] [id number] May, Screening breast examination Z12.31 and H/O breast augmentation Z98.82 [place] [id number] [place] [address] [id number] May, [address] [id number] May, Nasal polyp J33.9 and Acute non-recurrent frontal sinusitis J01.[address] [id number] May, COPD exacerbation J44.[address] [id number] Apr, [address] [id number] January, Enlarged thyroid E01.0 and COPD exacerbation J44.1 [place] [id number] [place] [address] [id number] January, Chronic obstructive pulmonary disease, unspecified J44.9 [place] [id number] [place] [address] [id number] Dec, [place] [id number] [place] [address] [id number] Dec, [place] [id number] [place] [address] [id number] Dec, Cough R05 ; Shortness of breath R06.02 ; Urinary frequency R35.0 and Chronic obstructive pulmonary disease, unspecified J44.9 [place] [id number] [place] [address] [id number] Nov, Bronchitis J40 and Cough R05 [address] [id number] Aug, Pain of left hand M79.642 ; Atrial fibrillation, unspecified type I48.91 and Screening for hyperlipidemia Z13.[address] [id number] Aug, [address] [id number] Aug, Pain of left foot M79.672 ; Pain in right foot M79.671 ; Pain of left hand M79.642 ; Pain in right hand M79.641 ; Screening for hyperlipidemia Z13.220 and Atrial fibrillation, unspecified type I48.[address] [id number] Jul, Rash R21 ; Arthritis of both hips M12.9 ; Depressive disorder, not elsewhere classified F32.9 ; Atrial fibrillation, unspecified type I48.91 ; Hyperthyroidism E05.90 and Chronic obstructive pulmonary disease, unspecified J44.9 [facility] [address] [address] Jun, [facility] [address] [address] Jun, Rosacea L71.[address] [id number] Jun, Rosacea L71.9 and Oral herpes simplex infection B00.[address] [id number] Jun, Rash R21 [address] [id number] Jun, Asthma exacerbation J45.[address] [id number] Apr, [address] [id number] Apr, Acute diffuse otitis externa of right ear H60.311 and Rash R21 [facility] [address] [address] Feb, Rash R21 [facility] [address]005[address]100[place], [place] [address] Feb, [facility] [id number] [place] [address] [id number] January, Hyperthyroidism E05.90 [facility] [id number] [place] [address] [id number] January, Atrial fibrillation, unspecified type I48.91 and Hyperthyroidism E05.90 [facility] [address] [place] [address]- [address]46 January, [facility] [id number] [place] [address] [id number] January, Atrial fibrillation, unspecified type I48.91 [place] [id number] [place] [address] [id number] Dec, Asthma exacerbation J45.901 [facility] [address] [id number] Dec, [facility] [id number] [place] [address] [id number] Oct, Acute maxillary sinusitis, recurrence not specified J01.00 and Acute cystitis with hematuria N30.01 [place] [id number] [place] [address] [id number] Oct, Sinusitis J32.9 [place] [id number] [place] [address] [id number] Sep, Chronic obstructive pulmonary disease, unspecified J44.9 ; Depressive disorder, not elsewhere classified F32.9 ; Arthritis of both hips M12.9 and Essential hypertension I10 [facility] [address] [id number][place] [id number] Sep, [place] [id number] [place] [address] [id number] Sep, [address] [place] [address] [id number] Sep, Right hip pain M25.551 [place] [id number] [address] Sep, [facility] [id number], [place] [address] Sep, [facility] [id number] [place] [address] [id number] Sep, Hemoptysis R04.2 ; Pain in right hip M25.551 and Pain in left hip M25.552 [facility] [id number] [place] [address] [id number] Aug, [facility] [id number] [place] [address] [id number] Aug, Sinusitis J32.9 ; Cough R05 and Wheezing R06.2 [facility] [address] [id number] [id number] May, [facility] [id number] [place] [address] [id number] May, [facility] [id number] [place] [address] [id number] May, [facility] [id number] [place] [address] [id number] Apr, Chronic airway obstruction, not elsewhere classified 496 [facility] [id number] [place] [address] [id number] Apr, [facility] [id number] [place] [address] [id number] Apr, Bronchitis, chronic obstructive, with exacerbation 491.21 [facility] [id number], [place] [id number] Mar, [facility] [id number] [place] [address] [id number] Mar, Asthma, unspecified, with (acute) exacerbation 493.92 and Rhinitis 472.0 [facility] [id number], [place] [id number] Feb, [facility] [id number] [place] [address] [id number] Feb, [facility] [id number] [place] [address] [id number] Feb, Pituitary incidentaloma 227.3 and Abnormal MRI of the head 793.0 [address]65100[place] [id number] Feb, [address] [place] [address] [id number] January, Muscle weakness of lower extremity 728.87 ; Abnormal involuntary movements 781.0 ; Unspecified otitis media 382.9 and Other general symptoms 780.[address] [place] [address] [id number] January, Acute sinusitis, unspecified 461.9 and Muscle weakness of lower extremity 728.[address] [place] [address] [id number] January, Bronchitis 490 and Cough 786.[address] [id number], [place] [id number] Dec, [address] [place] [address] [id number] Dec, [address] [place] [address] [id number] Dec, [facility] [id number] [place] [address] 44620- 8360 Dec, [facility] [id number] [place] [address] [id number]- 1358 Dec, [facility] [id number] [place] [address] 83863- 6941 Oct, [facility] [id number] [place] [address] 87507- 7515 Oct, [facility] [id number] [place] [address] 478941- 8492 Oct, [facility] [id number] [place] [address] 078855- 9208 Oct, [facility] [id number] [place] [address] 618422- 2836 Oct, [facility] [place] [facility] [address] [facility] [id number] [place] [address]- 2876 Oct, 2014 [facility] [place] [facility] [address] [facility] [id number] [place] [address]- 2546 Oct, 2014 [facility] [address] [facility] [id number] [place] [id number] Oct, 2014 [facility] [place] [facility] [address] [facility] [id number] [place] [address]- 2546 Oct, 2014 [facility] [place] [facility] [address] [facility] [id number] [place] [address]- 2546 Oct, 2014 [facility] [place] [facility] [address] [facility] [id number] [place] [address]- 2546 Oct, 2014 [facility] [address] [id number][place] [id number] Aug, [facility] [place] [facility] [address] [facility] [id number], [place] [address]- 9416 Aug, [facility] [address] [facility] [id number] [place] [id number] Jul, [facility] [place] [facility] [address] [facility] [id number], [place] [address]- 2546 Jul, [facility] [place] [facility] [address] [facility] [id number], [place] [address]- 6406 Jun, [facility] [address] [facility] [id number][place] [id number] Jun, [facility] [place] [facility] [address] [facility] [id number], [place] [address]- 2546 14 Jun, 2014 [facility] [address] [facility] [id number], [place] [id number] Jun, [facility] [place] [facility] [address] [facility] [id number], [place] [address]- 2546 Jun, [facility] [address] [facility] [id number], [place] [id number] 18 May, 2014 [facility] [place] [facility] [address] [id number], [place] [address]- 5[address] 18 May, 2014 [facility] [address] [facility] [id number] [place] [id number] May, [facility] [place] [facility] [address] [id number] [place] [address]- 8306 May, [facility] [address] [facility] [id number] [place] [id number] May, [facility] [place] [facility] [address] [id number], [place] [address]- 7202 May, [facility] [place] [facility] [address] [facility] [id number] [place] [address]- 4257 Mar, [facility] [place] [facility] [address] [facility] [id number] [place] [address]- 5238 Mar, [facility] [address] [facility] [id number], [place] [id number] January, [facility] [place] [facility] [address] [facility] [id number], [place] [address]- 9899 January, [facility] [address] [facility] [id number] [place] [id number] Oct, [facility] [place] [facility] [address] [facility] [id number], [place] [address]- 1280 Oct, [facility] [place] [facility] [address] [facility] [id number], [place] [address]- 3636 Jul, [facility] [place] [facility] [address] [id number], [place] [address]- 8127 Jun, [facility] [place] [facility] [address] [facility] [id number] [place] [address]- 7119 Jun, [facility] [place] [facility] [address] [facility] [id number], [place] [address]- 6168 May, [facility] [place] [facility] [address] [facility] [id number] [place] [address]- 3828 May, [facility] [place] [facility] [address] [id number] [place] [address]- 7569 Apr, [facility] [address] [id number] [place] [address]- 2507 Apr, [facility] [place] [facility] [address] [id number] [place] [address]- 4376 Mar, [facility] [address] [id number] [place] [address]- 6775 Feb, [facility] [place] [facility] [address] [id number] [place] [address]- 9201 Nov, [facility] [address] [id number] [place] [address]- 7999 Oct, [facility] [place] [facility] [address] [id number] [place] [address]- 4094 Oct, [facility] [address] [id number] [place] [address]- 0759 Oct, [facility] [address] [id number] [place] [address]- 9464 Oct, [facility] [address] [id number] [place] [address]- 4855 Oct, [facility] [address] [facility] [id number] [place] [address]- 3011 Sep, [facility] [place] [facility] [address] [id number] [place] [address]- 0654 Sep, [facility] [place] [facility] [address] [id number] [place] [address]- 6062 Jul, [facility] [place] [facility] [address] [id number] [place] [address]- 4437 Jul, [facility] [place] [facility] [address] [id number] [place] [address]- 2546 May, [facility] [place] [facility] [address] [id number] [place] [address] 2543 May, [facility] [address] [id number] [place] [id number] 05 May, 2011 [facility] [place] [facility] [address] [id number] [place] [address]- 7406 04 May, 2011 [facility] [place] [facility] [address] [id number] [place] [address]- 2546 04 May, 2011 [facility] [place] [facility] [address] [id number] [place] [address]- 2546 May, [facility] [place] [facility] [address] [id number] [place] [address]- 8599 Apr, [facility] [place] [facility] [address] [id number] [place] [address]- 8626 Apr, [facility] [address] [id number] [place] [address]- 0528 Apr, [facility] [place] [facility] [address] [id number] [place] [address]- 8766 Mar, [facility] [place] [facility] [address] [id number] [place] [address]- 3501 Mar, [facility] [place] [facility] [address] [id number], [place] [address]- 3145 Mar, [facility] [place] [facility] [address] [id number] [place] [address]- 2546 Mar, [facility] [place] [facility] [address] [id number], [place] [address]- 2546 Feb, [facility] [place] [facility] [address] [id number] [place] [address] Feb, [facility] [place] [facility] [address] [id number] [place] [address]- 2546 Feb, [facility] [place] [facility] [address] [id number][place] [id number] Feb, [facility] [place] [facility] [address] [id number] [place] [address]- 2546 Feb, [facility] [address] [id number] [place] [address]- 2546 Feb, [facility] [address] [id number] [place] [id number] January, [facility] [address] [id number] [place] [address]- 2546 January, [facility] [address] [id number] [place] [id number] January, [facility] [address] [id number] [place] [address]- 2546 January, [facility] [address] [id number] [place] [id number] January, [facility] [address] [id number] [place] [address]- 8956 January, [facility] [address] [id number] [place] [address] January, [facility] [address] [id number] [place] [address] January, [facility] [address] [id number] [place] [address] Dec, [facility] [address] [id number] [place] [address] Dec, [facility] [address] [id number], [place] [address] Dec, [facility] [address] [id number] [place] [address] Dec, [facility] [place] [facility] [address] [id number] [place] [address] Dec, [facility] [address] [id number] [place] [id number] Dec, [facility] [place] [facility] [address] [id number], [place] [address] Nov, [facility] [address] [id number] [place] [address] Nov, [facility] [address] [id number] [place] [address] Nov, [facility] [address] [id number] [place] [id number] Oct, [facility] [address] [id number] [place] [id number] Oct, [facility] [address] [id number] [place] [address] Oct, [facility] [address] [id number][place] [id number] Sep, [facility] [address] [facility] [id number], [place] [address] Sep, [facility] [address] [id number][place] [id number] Sep, [facility] [address] [facility] [id number][place] [id number] Sep, [facility] [address] [facility] [id number] [place] [address] Aug, [facility] [address] [facility] [id number], [place] [address] Aug, [facility] [place] [facility] [address] [facility] [id number] [place] [address] Aug, [facility] [place] [facility] [address] [facility] [id number], [place] [address] Aug, [facility] [place] [facility] [address] [facility] [id number] [place] [address] 17 Jul, 2011 [facility] [place] [facility] [address] [facility] [id number] [place] [address] 02 Jul, 2011 [facility] [place] [facility] [address] [facility] [id number], [place] [address] 13 May, 2011 [facility] [place] [facility] [address] [id number] [place] [address] 10 Jan, 2011 [facility] [place] [facility] [address] [id number] [place] [address] 20 Dec, 2010 [facility] [place] [facility] [address] [id number] [place] [address] 18 Nov, 2010 [facility] [place] [facility] [address] [id number] [place] [address] Aug, [facility] [address] [id number] [place] [address] Aug, [facility] [place] [facility] [address] [id number] [place] [address] Aug, [facility] [address] [id number] [place] [address] Aug, [facility] [place] [facility] [address] [id number] [place] [address] Aug, [facility] [place] [facility] [address] [id number] [place] [address] Aug, [facility] [place] [facility] [address] [id number] [place] [address] 27 Jun, 2010 [facility] [place] [facility] [address] [address] [id number] [place] [address] 26 Jun, 2010 [facility] [place] [facility] [address] [id number], [place] [address] 13 Jun, 2010 [facility] [place] [facility] [address] [id number] [place] [address] 12 Jun, 2010 [facility] [place] [facility] [address] [id number] [place] [address] 12 Jun, 2010 [facility] [place] [facility] [address] [id number] [place] [id number] 14 May, 2010 [facility] [place] [facility] [address] [id number], [place] [address] 10 May, 2010 IMMUNIZATIONS No Known [...]
--- OUTSIDE RECORDS SUMMARY | 2019-01-13 10:02 | XMS REPORT ---
Author Author BRITTNEY ROMERO Organization [facility] Address [address] [place] [address] Care Team Providers Care Criminal Justice Lawyer Name Role Phone BRITTNEY ROMERO Unavailable PROBLEMS Type Condition ICD9-CM Code CCQ23-UL Code Onset Dates Condition Status SNOMED Code Problem Enlarged thyroid E01.0 Active 01751133 Problem H/O breast augmentation Z98.82 Active 723157618 Problem COPD exacerbation J44.1 Active 476205194 Problem History of breast augmentation Z98.82 Active 375111234 Problem Decreased hearing of left ear H91.92 Active 329127292 Problem Chronic sinusitis, unspecified location J32.9 Active 32434795 Problem Chronic sinusitis of both maxillary sinuses J32.0 Active [id number] Problem Atelectasis J98.11 Active 55124301 Problem Severe persistent asthma with exacerbation J45.51 Active 002835037 Problem Primary osteoarthritis, left ankle and foot M19.072 Active 18491934 Problem Chronic obstructive pulmonary disease, unspecified J44.9 Active 174742347 Problem Primary osteoarthritis of right foot M19.071 Active 272462628 Problem Right wrist effusion M25.431 Active 804932510 Problem Arthritis of both hips M12.9 Active 87728481 Problem Hyperthyroidism E05.90 Active 37712762 Problem Essential hypertension I10 Active 89613120 Problem Atrial fibrillation, unspecified type I48.91 Active 89702625 Problem Depressive disorder, not elsewhere classified F32.9 Active 23875527 Problem Rosacea L71.9 Active 101471763 ALLERGIES No Information ENCOUNTERS Encounter Location Date Diagnosis [facility] [address] [facility] [id number] [place] [id number] Mar, [facility] [address] [id number] [place] [id number] Mar, Dental examination Z01.[address] [facility] [address] [id number] [place] [id number] Feb, [facility] [address] [id number] [place] [id number] Feb, [facility] [address] [id number] [place] [id number] Feb, [facility] [address] [id number] [id number] Feb, [facility] [address] [id number][place] [id number] January, [facility] [address] [id number][place] [address] January, Breast tenderness in female N64.4 ; Atypical chest pain R07.89 and History of breast augmentation Z98.82 [facility] [address] [id number][place] [id number] Dec, Jaw pain R68.84 [facility] [address] [id number][place] [id number] Dec, [facility] [address] [id number][place] [address] Dec, Chronic sinusitis, unspecified location J32.9 ; Swelling of left side of face R22.0 and Decreased hearing of left ear H91.92 [facility] [address] [id number] [place] [id number] Nov, Dental examination Z01.20 [facility] [address] [id number][place] [address] Nov, Chronic obstructive pulmonary disease, unspecified J44.9 [facility] [address] [id number][place] [address] Oct, Chronic obstructive pulmonary disease, unspecified J44.9 [facility] [address] [id number] [place] [id number] Sep, [facility] [address] [id number] [place] [address] Sep, [facility] [address] [id number] [place] [address] Sep, Atelectasis J98.11 and Severe persistent asthma with exacerbation J45.51 [place] [id number] [place] [address] [id number] Sep, [place] [id number] [place] [address] [id number] Sep, Cough R05 ; Shortness of breath R06.02 ; Low oxygen saturation R79.81 ; Wheezing R06.2 ; Decreased breath sounds at right lung base R09.89 ; Fever, unspecified fever cause R50.9 and COPD exacerbation J44.1 [place] [address] [facility] [address] [id number] [place] [address] Aug, Chronic sinusitis, unspecified location J32.9 and Acute mucoid otitis media of left ear H65.112 [place] [id number] [place] [address] [id number] Aug, Medial epicondylitis of left elbow M77.02 ; Chronic sinusitis of both maxillary sinuses J32.0 and History of sinus surgery Z98.8[address] [place] [address] [id number] Jul, [place] [id number] [place] [address] [id number] Jul, [place] [id number] [place] [address] [id number] Jul, Atrial fibrillation, unspecified type I48.91 ; Enlarged thyroid E01.0 ; Hyperthyroidism E05.90 and Pre-diabetes R73.[address] [place] [address] [id number] Jul, Elevated blood sugar R73.[address] [id number] Jul, Atrial fibrillation, unspecified type I48.91 and Hyperthyroidism E05.90 [facility] [address] [place] [address]- 6[address] Jul, Atrial fibrillation, unspecified type I48.91 and Hyperthyroidism E05.90 [place] [id number] [place] [address] [id number] Jun, Acute recurrent frontal sinusitis J01.11 [place] [id number] [place] [address] [id number] Jun, [place] [id number] [place] [address] [id number] May, Screening breast examination Z12.31 and H/O breast augmentation Z98.82 [place] [id number] [place] [address] [id number] May, [place] [id number] [place] [address] [id number] May, Nasal polyp J33.9 and Acute non-recurrent frontal sinusitis J01.10 [place] [id number] [place] [address] [id number] May, COPD exacerbation J44.1 [place] [id number] [place] [address] [id number] Apr, [address] [id number] January, Enlarged thyroid E01.0 and COPD exacerbation J44.[address] [id number] January, Chronic obstructive pulmonary disease, unspecified J44.9 [address] [place] [address] [id number] Dec, [place] [id number] [place] [address] [id number] Dec, [place] [id number] [place] [address] [id number] Dec, Cough R05 ; Shortness of breath R06.02 ; Urinary frequency R35.0 and Chronic obstructive pulmonary disease, unspecified J44.9 [address] [place] [address] [id number] Nov, Bronchitis J40 and Cough R05 [place] [id number] [place] [address] [id number] Aug, Screening for hyperlipidemia Z13.220 ; Pain of left hand M79.642 and Atrial fibrillation, unspecified type I48.91 [facility] [id number] [place] [address] [id number] Aug, [address] [id number] Aug, Pain of left foot M79.672 ; Pain in right foot M79.671 ; Pain of left hand M79.642 ; Pain in right hand M79.641 ; Screening for hyperlipidemia Z13.220 and Atrial fibrillation, unspecified type I48.91 [place] [address] [place] [address] [id number] Jul, Rash R21 ; Arthritis of both hips M12.9 ; Depressive disorder, not elsewhere classified F32.9 ; Atrial fibrillation, unspecified type I48.91 ; Hyperthyroidism E05.90 and Chronic obstructive pulmonary disease, unspecified J44.[address] [address] Jun, [facility] [address] [place] [address]24- 6085 Jun, Rosacea L71.[address] [id number] Jun, Rosacea L71.9 and Oral herpes simplex infection B00.[address] [id number] Jun, Rash R21 [place] [id number] [place] [address] [id number] Jun, Asthma exacerbation J45.901 [place] [id number] [place] [address] [id number] Apr, [address] [id number] Apr, Acute diffuse otitis externa of right ear H60.311 and Rash R21 [facility] [address] [address] Feb, Rash R21 [place] [id number] [address] Feb, [facility] [id number] [place] [address] [id number] January, Hyperthyroidism E05.90 [facility] [id number] [place] [address] [id number] January, Atrial fibrillation, unspecified type I48.91 and Hyperthyroidism E05.90 [facility] [id number] [place] [address] 8[address]78- 2546 January, [facility] [id number] [place] [address] [id number] January, Atrial fibrillation, unspecified type I48.91 [place] [id number] [place] [address] [id number] Dec, Asthma exacerbation J45.901 [place] [id number] [place] [address] [id number] Dec, [place] [address] [place] [address] [id number] Oct, Acute maxillary sinusitis, recurrence not specified J01.00 and Acute cystitis with hematuria N30.01 [place] [id number] [place] [address] [id number] Oct, Sinusitis J32.9 [place] [address] [place] [address] [id number] Sep, Chronic obstructive pulmonary disease, unspecified J44.9 ; Depressive disorder, not elsewhere classified F32.9 ; Arthritis of both hips M12.9 and Essential hypertension I10 [facility] [address] [id number] [place] [id number] Sep, [address] [place] [address] [id number] Sep, [place] [address] [place] [address] [id number] Sep, Right hip pain M25.551 [address] [place] [address] [id number] Sep, [address] [id number][place] [id number] Sep, [facility] [id number] [place] [address] [id number] Sep, Hemoptysis R04.2 ; Pain in right hip M25.551 and Pain in left hip M25.552 [facility] [id number] [place] [address] [id number] Aug, [facility] [id number] [place] [address] [id number] Aug, Sinusitis J32.9 ; Cough R05 and Wheezing R06.2 [facility] [id number] [place] [address] [id number] May, [facility] [id number] [place] [address] [id number] May, [address] [place] [address] [id number] May, [facility] [id number] [place] [address] [id number] Apr, Chronic airway obstruction, not elsewhere classified [id number] [place] [address] [id number] Apr, [place] [id number] [place] [address] [id number] Apr, Bronchitis, chronic obstructive, with exacerbation 491.21 [address] [place] [address] [id number] Mar, [place] [address] [place] [address] [id number] Mar, Asthma, unspecified, with (acute) exacerbation 493.92 and Rhinitis 472.0 [place] [address] [place] [address] [id number] Feb, [facility] [id number] [place] [address] [id number] Feb, [address] [place] [address] [id number] Feb, Pituitary incidentaloma 227.3 and Abnormal MRI of the head 793.0 [facility] 120 [facility] [id number][place] [id number] Feb, [address] [place] [address] [id number] January, Muscle weakness of lower extremity 728.87 ; Abnormal involuntary movements 781.0 ; Unspecified otitis media 382.9 and Other general symptoms 780.99 [address]65100[place] [address] January, Acute sinusitis, unspecified 461.9 and Muscle weakness of lower extremity 728.[address] [place] [address] [id number] January, Bronchitis 490 and Cough 786.2 [address]00565[place] [id number] Dec, [place] [id number] [id number] Dec, [address] [place] [address] [id number] Dec, [facility] [address] [place] [address] 34661- 0324 Dec, [facility] [id number] [place] [address] [id number] Dec, [facility] [id number] [place] [address] 262904- 7763 Oct, [facility] [id number] [place] [address] 96655- 7478 Oct, [facility] [address] [place] [address] 368784- 4455 Oct, [facility] [id number] [place] [address] 354267- 0779 Oct, [facility] [id number] [place] [address] 56779- 8171 Oct, [facility] [address] [id number], [place] [address]- 4286 Oct, 2014 [facility] [address] [facility] [id number], [place] [address]- 5636 Oct, 2014 [facility] [address] [facility] [id number], [place] [id number] Oct, 2014 [facility] [place] [facility] [address]00565100[place], [place] [address] 2546 Oct, 2014 [facility] [place] [facility] [address] [facility] [id number], [place] [address]- 2546 Oct, 2014 [facility] [place] [facility] [address]00565100[place], [place] [address]- 7336 Oct, 2014 [facility] [id number], [place] [id number] Aug, [facility] [place] [facility] [address]00565100[place], [place] [address]- 2406 Aug, [facility] [id number], [place] [id number] Jul, [facility] [place] [facility] [address]00565100[place], [place] [address]- 9256 Jul, [facility] [place] [facility] [address]00565100[place], [place] [address]- 4901 Jun, [facility] [address] [id number], [place] [id number] Jun, [facility] [place] [facility] [address] [facility] [id number], [place] [address]- 3978 14 Jun, 2014 [facility] [address] [facility] [id number], [place] [id number] Jun, [facility] [place] [facility] [address]00565100[place], [place] [address]- 2546 Jun, [facility] [address] [facility] [id number], [place] [id number] May, [facility] [place] [facility] [address]00565100[place], [place] [address]- 9399 May, [facility] [address] [id number] [place] [id number] May, [facility] [place] [facility] [address] [id number] [place] [address]- 2546 May, [facility] [address] [id number] [place] [id number] May, [facility] [place] [facility] [address] [id number] [place] [address]- 7506 May, [facility] [place] [facility] [address] [id number] [place] [address]- 254 Mar, [facility] [place] [facility] [address] [id number] [place] [address]- 7076 Mar, [facility] [address] [id number] [place] [id number] January, [facility] [place] [facility] [address] [id number] [place] [address]- 7026 January, [facility] [address] [id number] [place] [id number] Oct, [facility] [place] [facility] [address] [id number] [place] [address]- 3168 Oct, [facility] [place] [facility] [address] [facility] [id number], [place] [address]- 3681 Jul, [facility] [place] [facility] [address] [id number] [place] [address]- 6216 Jun, [facility] [place] [facility] [address] [id number] [place] [address]- 2546 Jun, [facility] [place] [facility] [address] [id number] [place] [address]- 7105 May, [facility] [place] [facility] [address] [id number] [place] [address]- 2546 May, [facility] [place] [facility] [address] [id number], [place] [address]- 4151 Apr, [facility] [place] [facility] [address] [id number], [place] [address]- 2080 Apr, [facility] [address] [id number] [place] [address]- 4701 Mar, [facility] [address] [facility] [id number] [place] [address]- 3761 Feb, [facility] [address] [id number] [place] [address]- 5315 Nov, [facility] [address] [id number] [place] [address]- 3224 Oct, [facility] [address] [id number] [place] [address]- 0357 Oct, [facility] [address] [facility] [id number] [place] [address]- 2279 Oct, [facility] [address] [id number], [place] [address]- 6063 Oct, [facility] [address] [id number] [place] [address]- 9142 Oct, [facility] [address] [facility] [id number], [place] [address]- 6144 Sep, [facility] [address] [id number], [place] [address]- 7700 Sep, [facility] [address] [id number], [place] [address]- 5702 Jul, [facility] [address] [facility] [id number], [place] [address]- 5466 Jul, [facility] [address] [facility] [id number], [place] [address]- 1268 May, [facility] [address] [facility] [id number], [place] [address]- 6062 May, [facility] [place] [address] [facility] [id number][place] [id number] 05 May, 2011 [facility] [place] [facility] [address] [id number] [place] [address]- 6169 04 May, 2012 [facility] [place] [facility] [address] [id number], [place] [address]- 5776 04 May, 2012 [facility] [place] [facility] [address] [id number] [place] [address]- 5190 May, [facility] [place] [facility] [address] [id number], [place] [address]- 0681 Apr, [facility] [place] [facility] [address] [id number] [place] [address]- 8026 Apr, [facility] [place] [facility] [address] [id number] [place] [address]- 2620 Apr, [facility] [place] [facility] [address] [id number], [place] [address]- 1399 Mar, [facility] [place] [facility] [address] [id number], [place] [address]- 6717 Mar, [facility] [place] [facility] [address] [id number], [place] [address]- 1332 Mar, [facility] [place] [facility] [address] [id number], [place] [address]- 7824 Mar, [facility] [place] [facility] [address] [id number], [place] [address]- 9043 Feb, [facility] [place] [facility] [address] [id number] [id number] Feb, [facility] [place] [facility] [address] [id number], [place] [address]- 9821 Feb, [facility] [place] [facility] [address] [id number] [id number] Feb, [facility] [place] [facility] [address] [id number], [place] [address]- 1408 Feb, [facility] [place] [facility] [address] [id number], [place] [address]- 9406 Feb, [facility] [address] [id number] [place] [id number] January, [facility] [place] [facility] [address] [id number], [place] [address]- 2966 January, [facility] [address] [id number] [place] [id number] January, [facility] [place] [facility] [address] [id number], [place] [address]- 1106 January, [facility] [place] [facility] [address] [id number] [place] [id number] January, [facility] [place] [facility] [address] [id number] [place] [address]- 7621 January, [facility] [place] [facility] [address] [id number], [place] [address]- 4146 January, [facility] [place] [facility] [address] [id number], [place] [address]- 7952 January, [facility] [place] [facility] [address] [id number], [place] [address]- 1480 Dec, [facility] [place] [facility] [address] [id number], [place] [address]- 0717 Dec, [facility] [place] [facility] [address] [id number], [place] [address]- 2934 Dec, [facility] [place] [facility] [address] [id number], [place] [address]- 1038 Dec, [facility] [place] [facility] [address] [id number] [place] [address]- 7826 Dec, [facility] [address] [id number] [place] [id number] Dec, [facility] [place] [facility] [address] [id number] [place] [address]- 5686 Nov, [facility] [place] [facility] [address] [id number], [place] [address]- 2546 Nov, [facility] [place] [facility] [address] [id number], [place] [address]- 2546 Nov, [facility] [place] [facility] [address] [id number] [id number] Oct, [facility] [place] [facility] [address] [id number], [place] [address] Oct, [facility] [place] [facility] [address] [facility] [id number], [place] [address]- 2546 Oct, [facility] [id number] [place] [id number] Sep, [facility] [place] [facility] [address] [facility] [id number], [place] [address] Sep, [facility] [id number] [id number] Sep, [facility] [id number] [place] [id number] Sep, [facility] [place] [facility] [id number], [place] [address] Aug, [facility] [place] [facility] [address] [facility] [id number], [place] [address] Aug, [facility] [place] [facility] [id number], [place] [address] Aug, [facility] [place] [facility] [address] [facility] [id number], [place] [address] Aug, [facility] [place] [facility] [address] [facility] [id number], [place] [address] 17 Jul, 2011 [facility] [place] [facility] [address] [facility] [id number], [place] [address] 02 Jul, 2011 [facility] [place] [facility] [address] [facility] [id number], [place] [address] 13 May, 2011 [facility] [place] [facility] [address] [facility] [id number], [place] [address] January, [facility] [address] [facility] [id number] [place] [address] Dec, [facility] [address] [facility] [id number], [place] [address] Nov, [facility] [address] [facility] [id number] [place] [address] Aug, [facility] [address] [facility] [id number], [place] [address] Aug, [facility] [address] [facility] [id number] [place] [address] Aug, [facility] [address] [facility] [id number] [place] [address] Aug, [facility] [id number], [place] [address] Aug, [facility] [address] [id number], [place] [address] Aug, [facility] [address] [id number], [place] [address] Jun, [facility] [address] [id number], [place] [address] Jun, [facility] [address] [id number], [place] [address] Jun, [facility] [address] [facility] [id number], [place] [address] Jun, [facility] [address] [facility] [id number], [place] [address] Jun, [facility] [address] [facility] [id number], [place] [address] 14 May, 2010 [facility] [address] [id number], [place] [address] 10 May, 2010 IMMUNIZATIONS No Known Immunizations SOCIAL HISTORY Never Assessed REASON FOR VISIT followup PLAN OF CARE VITAL SIGNS MEDICATIONS Unknown [...]
--- OUTSIDE RECORDS SUMMARY | 2019-01-13 10:03 | XMS REPORT ---
Author Author BRITTNEY ROMERO Organization [facility] Address [address] [place] [address] Care Team Providers Care Senior Technical Recruiter Name Role Phone BRITTNEY ROMERO Unavailable PROBLEMS Type Condition ICD9-CM Code CDI96-UN Code Onset Dates Condition Status SNOMED Code Problem Enlarged thyroid E01.0 Active 36182443 Problem H/O breast augmentation Z98.82 Active 407950357 Problem COPD exacerbation J44.1 Active 264024710 Problem History of breast augmentation Z98.82 Active 529239663 Problem Decreased hearing of left ear H91.92 Active 605510782 Problem Chronic sinusitis, unspecified location J32.9 Active 10399434 Problem Chronic sinusitis of both maxillary sinuses J32.0 Active [id number] Problem Atelectasis J98.11 Active 73068176 Problem Severe persistent asthma with exacerbation J45.51 Active 821407655 Problem Primary osteoarthritis, left ankle and foot M19.072 Active 98461391 Problem Chronic obstructive pulmonary disease, unspecified J44.9 Active 075764176 Problem Primary osteoarthritis of right foot M19.071 Active 149246608 Problem Right wrist effusion M25.431 Active 922208728 Problem Arthritis of both hips M12.9 Active 07590541 Problem Hyperthyroidism E05.90 Active 88318640 Problem Essential hypertension I10 Active 11258930 Problem Atrial fibrillation, unspecified type I48.91 Active 49658959 Problem Depressive disorder, not elsewhere classified F32.9 Active 68332816 Problem Rosacea L71.9 Active 604932048 ALLERGIES Substance Reaction Event Type Date Status Sulfamethoxazole sores in mouth Drug Allergy January, Active Penicillin V Potassium hives Drug Allergy January, Active Bactrim DS Unknown Drug Allergy January, Active ENCOUNTERS Encounter Location Date Diagnosis [facility] [address] [facility] [id number] [place] [id number] Mar, [address] [id number] [address] Mar, Dental examination Z01.[address] [id number][place] [id number] Feb, [facility] [address] [facility] [address] [id number][place] [address] Feb, [facility] [address] [id number][place] [id number] Feb, [facility] [address] [id number] [place] [address] Feb, [facility] [address] [id number] [place] [address] January, [facility] [address] [id number] [place] [address] January, Breast tenderness in female N64.4 ; Atypical chest pain R07.89 and History of breast augmentation Z98.82 [facility] [address] [id number] [place] [address] Dec, Jaw pain R68.84 [facility] [address] [id number] [place] [address] Dec, [facility] [address] [id number] [place] [address] Dec, Chronic sinusitis, unspecified location J32.9 ; Swelling of left side of face R22.0 and Decreased hearing of left ear H91.92 [facility] [address] [facility] [address] [id number][place] [address] Nov, Dental examination Z01.20 [facility] [address] [id number] [place] [address] Nov, Chronic obstructive pulmonary disease, unspecified J44.9 [facility] [address] [id number] [place] [address] Oct, Chronic obstructive pulmonary disease, unspecified J44.9 [facility] [address] [facility] [address] [id number], [place] [address] Sep, [facility] DAVID [address] [place] [address] [id number][place] [address] Sep, [address] [id number][place] [address] Sep, Atelectasis J98.11 and Severe persistent asthma with exacerbation J45.[address] [place] [address] [id number] Sep, [place] [id number] [place] [address] [id number] Sep, Cough R05 ; Shortness of breath R06.02 ; Low oxygen saturation R79.81 ; Wheezing R06.2 ; Decreased breath sounds at right lung base R09.89 ; Fever, unspecified fever cause R50.9 and COPD exacerbation J44.1 [facility] [address] [id number], [place] [address] Aug, Chronic sinusitis, unspecified location J32.9 and Acute mucoid otitis media of left ear H65.112 [place] [id number] [place] [address] [id number] Aug, Medial epicondylitis of left elbow M77.02 ; Chronic sinusitis of both maxillary sinuses J32.0 and History of sinus surgery Z98.890 [address] [place] [address] [id number] Jul, [place] [id number] [place] [address] [id number] Jul, [place] [id number] [place] [address] [id number] Jul, Atrial fibrillation, unspecified type I48.91 ; Enlarged thyroid E01.0 ; Hyperthyroidism E05.90 and Pre-diabetes R73.[address] [id number] Jul, Elevated blood sugar R73.9 [address] [place] [address] [id number] 08 Jul, 2017 Atrial fibrillation, unspecified type I48.91 and Hyperthyroidism E05.90 [facility] [address]00565100[place], [place] [address] Jul, Atrial fibrillation, unspecified type I48.91 and Hyperthyroidism E05.90 [facility] [id number] [place] [address] [id number] Jun, Acute recurrent frontal sinusitis J01.11 [place] [id number] [place] [address] [id number] Jun, [address] [id number] May, Screening breast examination Z12.31 and H/O breast augmentation Z98.82 [place] [id number] [place] [address] [id number] May, [address] [id number] May, Nasal polyp J33.9 and Acute non-recurrent frontal sinusitis J01.10 [place] [id number] [place] [address] [id number] May, COPD exacerbation J44.1 [address] [place] [address] [id number] Apr, [address] [id number] January, Enlarged thyroid E01.0 and COPD exacerbation J44.1 [place] [id number] [place] [address] [id number] January, Chronic obstructive pulmonary disease, unspecified J44.9 [place] [id number] [place] [address] [id number] Dec, [address] [place] [address] [id number] Dec, [place] [id number] [place] [address] [id number] Dec, Cough R05 ; Shortness of breath R06.02 ; Urinary frequency R35.0 and Chronic obstructive pulmonary disease, unspecified J44.9 [address] [place] [address] [id number] 24 Mar, 2017 Bronchitis J40 and Cough R05 [place] [id number] [place] [address] [id number] Aug, Screening for hyperlipidemia Z13.220 ; Pain of left hand M79.642 and Atrial fibrillation, unspecified type I48.91 [place] [id number] [place] [address] [id number] Aug, [address] [id number] Aug, Pain of left foot M79.672 ; Pain in right foot M79.671 ; Pain of left hand M79.642 ; Pain in right hand M79.641 ; Screening for hyperlipidemia Z13.220 and Atrial fibrillation, unspecified type I48.[address] [id number] Jul, Rash R21 ; Arthritis of both hips M12.9 ; Depressive disorder, not elsewhere classified F32.9 ; Atrial fibrillation, unspecified type I48.91 ; Hyperthyroidism E05.90 and Chronic obstructive pulmonary disease, unspecified J44.9 [place] [address] [id number]- [address] Jun, [facility] [address] [id number]- [address]117 Jun, Rosacea L71.[address] [id number] Jun, Rosacea L71.9 and Oral herpes simplex infection B00.2 [place] [id number] [place] [address] [id number] Jun, Rash R21 [address] [id number] Jun, Asthma exacerbation J45.901 [place] [id number] [place] [address] [id number] Apr, [place] [id number] [place] [address] [id number] Apr, Acute diffuse otitis externa of right ear H60.311 and Rash R21 [facility] [address]00565100[place], [place] [address] Feb, Rash R21 [facility] [id number] [place] [address]- 5846 Feb, [facility] [id number] [place] [address] [id number] January, Hyperthyroidism E05.90 [facility] [address] [id number] January, Atrial fibrillation, unspecified type I48.91 and Hyperthyroidism E05.90 [facility] [id number] [place] [address] 27364 2546 January, [facility] [id number] [place] [address] [id number] January, Atrial fibrillation, unspecified type I48.91 [place] [id number] [place] [address] [id number] Dec, Asthma exacerbation J45.901 [facility] [id number] [place] [address] [id number] Dec, [facility] [id number] [place] [address] [id number] Oct, Acute maxillary sinusitis, recurrence not specified J01.00 and Acute cystitis with hematuria N30.01 [place] [id number] [place] [address] [id number] Oct, Sinusitis J32.9 [place] [id number] [place] [address] [id number] Sep, Chronic obstructive pulmonary disease, unspecified J44.9 ; Depressive disorder, not elsewhere classified F32.9 ; Arthritis of both hips M12.9 and Essential hypertension I10 [facility] [address] [id number] [id number] Sep, [facility] [address] [place] [address] [id number] Sep, [place] [id number] [place] [address] [id number] Sep, Right hip pain M25.551 [facility] [id number] [place] [address] Sep, [facility] [id number] [place] [address] [id number] Sep, [facility] [id number] [place] [address] Sep, Hemoptysis R04.2 ; Pain in right hip M25.551 and Pain in left hip M25.552 [facility] [id number] [place] [address] [id number] Aug, [facility] [id number] [place] [address] [id number] Aug, Sinusitis J32.9 ; Cough R05 and Wheezing R06.2 [facility] [address] [id number] [id number] May, [facility] [id number] [place] [address] [id number] May, [facility] [id number] [place] [address] [id number] May, [facility] [id number] [place] [address] [id number] Apr, Chronic airway obstruction, not elsewhere classified 496 [facility] [id number] [place] [address] [id number] Apr, [place] [id number] [place] [address] [id number] Apr, Bronchitis, chronic obstructive, with exacerbation 491.21 [facility] [id number] [place] [id number] Mar, [place] [id number] [place] [address] [id number] Mar, Asthma, unspecified, with (acute) exacerbation 493.92 and Rhinitis 472.0 [facility] [id number] [place] [address] [id number] Feb, [place] [id number] [place] [address] [id number] Feb, [address] [id number] [place] [id number] Feb, Pituitary incidentaloma 227.3 and Abnormal MRI of the head 793.0 [address]00565100[place] [id number] Feb, [address]65100[place] [address] January, Muscle weakness of lower extremity 728.87 ; Abnormal involuntary movements 781.0 ; Unspecified otitis media 382.9 and Other general symptoms 780.[address] [id number] [place] [address] January, Acute sinusitis, unspecified 461.9 and Muscle weakness of lower extremity 728.[address] [place] [address] [id number] January, Bronchitis 490 and Cough 786.[address] [id number], [place] [id number] Dec, [address] [id number] [place] [id number] Dec, [id number] [place] [address] [id number] Dec, [facility] [address] [place] [address] 95806- 0556 Dec, [facility] [address] [place] [address] 98920- 3593 Dec, [facility] [id number] [place] [address] 99721- 8250 Oct, [facility] [id number] [place] [address] 10467- 5252 Oct, [facility] [id number] [place] [address] 58181- 6599 Oct, [facility] [id number] [place] [address] 64433- 5047 Oct, [facility] [place] [facility] [address] [facility] [id number] [place] [address]- 2978 Oct, 2014 [facility] [place] [facility] [address] [facility] [id number] [place] [address]- 4576 Oct, 2014 [facility] [place] [facility] [address] [facility] [id number] [place] [address]- 8337 Oct, 2014 [facility] [address] [facility] [id number] [place] [id number] Oct, 2014 [facility] [place] [facility] [address] [facility] [id number] [place] [address] 2546 Oct, 2014 [facility] [place] [facility] [address] [facility] [id number] [place] [address]- 3046 Oct, 2014 [facility] [place] [facility] [address] [facility] [id number] [place] [address]- 4878 Oct, 2014 [facility] [id number] [place] [id number] Aug, [facility] [place] [facility] [address] [facility] [id number], [place] [address]- 7216 Aug, [facility] [id number] [place] [id number] Jul, [facility] [place] [facility] [address] [facility] [id number], [place] [address]- 1416 Jul, [facility] [place] [facility] [address] [id number], [place] [address]- 8126 Jun, [facility] [address] [facility] [id number] [place] [id number] Jun, [facility] [place] [facility] [address] [facility] [id number], [place] [address] 2546 14 Jun, 2014 [facility] [address] [facility] [id number] [place] [address] Jun, [facility] [place] [facility] [address] [facility] [id number], [place] [address]- 2546 Jun, [facility] [address] [facility] [id number] [place] [id number] May, [facility] [place] [facility] [address] [id number], [place] [address]- 0903 May, [facility] [address] [facility] [id number] [place] [address] May, [facility] [place] [facility] [address] [id number], [place] [address]- 5466 May, [facility] [address] [id number] [place] [id number] May, [facility] [place] [facility] [address] [id number] [place]- 3968 May, [facility] [place] [facility] [address] [facility] [id number] [place] [address]- 6106 Mar, [facility] [place] [facility] [address] [facility] [id number], [place] [address]- 8953 Mar, [facility] [address] [facility] [id number] [place] [address] January, [facility] [place] [facility] [address] [facility] [id number], [place] [address]- 2414 January, [facility] [address] [facility] [id number] [place] [id number] Oct, [facility] [place] [facility] [address] [facility] [id number], [place] [address]- 6930 Oct, [facility] [place] [facility] [address] [id number], [place] [address]- 0758 Jul, [facility] [place] [facility] [address] [id number], [place] [address]- 9551 Jun, [facility] [place] [facility] [address] [id number] [place] [address]- 1275 Jun, [facility] [place] [facility] [address] [id number], [place] [address]- 8684 May, [facility] [place] [facility] [address] [facility] [id number], [place] [address]- 5206 May, [facility] [address] [id number] [place] [address]- 4073 Apr, [facility] [address] [id number] [place] [address]- 3318 Apr, [facility] [address] [facility] [id number] [place] [address]- 1042 Mar, [facility] [address] [id number] [place] [address]- 1892 Feb, [facility] [address] [id number] [place] [address]- 9193 Nov, [facility] [address] [facility] [id number] [place] [address]- 9651 Oct, [facility] [address] [facility] [id number] [place] [address]- 2538 Oct, [facility] [address] [id number] [place] [address]- 6718 Oct, [facility] [address] [id number] [place] [address]- 7307 Oct, [facility] [address] [facility] [id number] [place] [address]- 2592 Oct, [facility] [address] [facility] [id number][place] [address]- 2007 Sep, [facility] [place] [facility] [address] [id number], [place] [address] 2542 Sep, [facility] [address] [id number] [place] [address]- 0091 Jul, [facility] [place] [facility] [address] [facility] [id number] [place] [address]- 0430 Jul, [facility] [address] [facility] [id number] [place] [address]- 4199 May, [facility] [place] [facility] [address] [id number] [place] [address]- 3914 06 May, 2011 [facility] [address] [id number] [place] [id number] 05 May, 2011 [facility] [place] [facility] [address] [id number] [place] [address]- 8672 04 May, 2011 [facility] [address] [id number] [place] [address]- 1185 04 May, 2011 [facility] [place] [facility] [address] [id number] [place] [address]- 0503 May, 2011 [facility] [address] [id number] [place] [address]- 5703 Apr, [facility] [address] [id number] [place] [address]- 3890 Apr, [facility] [place] [facility] [address] [id number] [place] [address]- 3009 Apr, [facility] [address] [id number] [place] [address]- 0103 Mar, [facility] [place] [facility] [address] [id number] [place] [address]- 0726 Mar, [facility] [address] [facility] [id number] [place] [address]- 8107 Mar, [facility] [place] [facility] [address] [id number] [place] [address]- 4001 Mar, [facility] [place] [facility] [address] [id number] [place] [address]- 2614 Feb, [facility] [place] [facility] [address] [id number] [place] [id number] Feb, [facility] [place] [facility] [address] [id number] [place] [address]- 7396 Feb, [facility] [place] [facility] [address] [id number] [place] [address] Feb, [facility] [place] [facility] [address] [id number] [place] [address]- 2546 Feb, [facility] [address] [id number] [place] [address]- 1246 Feb, [facility] [address] [id number] [place] [address] January, [facility] [address] [id number] [place] [address]- 8726 January, [facility] [place] [facility] [address] [id number] [place] [id number] January, [facility] [place] [facility] [address] [id number] [place] [address]- 4346 January, [facility] [address] [id number] [place] [address] January, [facility] [place] [facility] [address] [id number] [place] [address]- 8656 January, [facility] [address] [id number] [place] [address]- 4426 January, [facility] [place] [facility] [address] [id number] [place] [address]- 2896 January, [facility] [address] [id number] [place] [address]- 7746 Dec, [facility] [place] [facility] [address] [id number] [place] [address]- 3766 Dec, [facility] [place] [facility] [address] [id number] [place] [address]- 2326 Dec, [facility] [place] [facility] [address] [id number] [place] [address]- 6546 Dec, [facility] [place] [facility] [address] [id number] [place] [address] Dec, [facility] [address] [id number] [place] [id number] Dec, [facility] [place] [facility] [address] [id number], [place] [address] Nov, [facility] [address] [id number] [place] [address] Nov, [facility] [address] [facility] [id number] [place] [address] Nov, [facility] [address] [id number] [place] [id number] Oct, [facility] [address] [id number] [place] [id number] Oct, [facility] [address] [id number] [place] [address] Oct, [facility] [address] [id number] [place] [id number] Sep, [facility] [address] [id number], [place] [address] Sep, [facility] [address] [id number] [place] [id number] Sep, [facility] [address] [facility] [id number] [place] [id number] Sep, [facility] [address] [facility] [id number], [place] [address] Aug, [facility] [address] [id number], [place] [address] Aug, [facility] [place] [facility] [address] [id number], [place] [address] Aug, [facility] [place] [facility] [address] [id number], [place] [address] Aug, [facility] [place] [facility] [address] [facility] [id number], [place] [address] Jul, [facility] [place] [facility] [address] [facility] [id number] [place] [address] Jul, [facility] [place] [facility] [address] [id number] [place] [address] 13 May, 2011 [facility] [address] [id number] [place] [address] 10 Jan, 2011 [facility] [place] [facility] [address] [id number] [place] [address] 20 Dec, 2010 [facility] [address] [id number] [place] [address] 18 Nov, 2010 [facility] [address] [id number] [place] [address] 28 Aug, 2010 [facility] [address] [id number] [place] [address] 28 Aug, 2010 [facility] [address] [id number] [place] [address] Aug, [facility] [address] [id number] [place] [address] 08 Aug, 2010 [facility] [address] [id number] [place] [address] Aug, [facility] [address] [id number] [place] [address] 02 Aug, 2010 [facility] [address] [id number] [place] [address] 27 Jun, 2010 [facility] [place] [facility] [address] [id number] [place] [address] 26 Jun, 2010 [facility] [address] [id number] [place] [address] 13 Jun, 2010 [facility] [place] [facility] [address] [id number] [place] [address] 12 Jun, 2010 [facility] [place] [facility] [address] [id number] [place] [address] 12 Jun, 2010 [facility] [place] [facility] [address] [id number] [place] [id number] 14 May, 2010 [facility] [address] [facility] [id number] [place] [id number] 10 May, 2010 IMMUNIZATIONS No Known Immunizations SOCIAL HISTORY Never Assessed REASON FOR VISIT Pain in jaw/ear, states it starts in chest and goes to left jaw Zay [facility] PLAN OF CARE Activity Details Follow Up pending US and mammogram Reason: VITAL SIGNS Height 62 in 2018-02-10 Weight 196.8 lbs 2018-02-10 Temperature 97.3 degrees Fahrenheit 2018-02-10 Heart Rate 60 bpm 2018-02-10 Respiratory Rate 16 2018-02-10 Oximetry 93 % 2018-02-10 BMI 35.99 kg/m2 2018-02-10 Blood pressure systolic 116 mmHg 2018-02-10 Blood pressure diastolic 72 mmHg 2018-02-10 MEDICATIONS Medication Instructions Dosage Frequency Start Date End Date Duration Status Metoprolol Succinate ER 100 MG Orally Once a day 1 tablet 24h Active Singulair 10 mg 1 tablet by Oral route 1 time per day for 30 days Jun, Active Cardizem CD 180 MG Orally Once a day 1 capsule 24h January, Active Eliquis 5 mg Orally 2 times a day 1 tablet 12h January, Active Advair Diskus 500-50 MCG/DOSE Inhalation Twice a day 1 puff 12h Oct, Active EPINEPHrine 0.3 mg/0.3 mL 0.3 mg by Intramuscular route 1 time per dayPRNfor anyphylaxis Feb, Active Albuterol Sulfate (2.5 MG/3ML) 0.083% inhalation 4-6 hours as needed 1 Each by Inhalation route every 6 hours for cough and wheezePRNfor wheezing or cough Sep, Active ProAir HFA 108 (90 Base) MCG/ACT INHALE 2 PUFFS NEEDED 4 TIMES A DAY Active Flonase 50 MCG/ACT Nasally 2 times a day 1 spray in each nostril 12h Active ZyrTEC 10 mg 1 tablet by Oral route 1 time per day Dec, Active Fluoxetine 20 mg 1 capsule Once a day orally Active Tapazole 5 mg Orally Once a day 4 tablet with food 24h Active DuoNeb 0.5-2.5 (3) MG/3ML Inhalation every4- 6 hrs 3 ml Sep, Active Benadryl Allergy 25 MG Orally every 6 hrs 1 tablet as needed 6h Active RESULTS Name Result Date Reference Range Mammogram Dx, Bilateral Ultrasound : Breast, Left PROCEDURES No Known procedures INSTRUCTIONS MEDICATIONS ADMINISTERED [...]
--- OUTSIDE RECORDS SUMMARY | 2019-01-13 10:03 | XMS REPORT ---
Author Author BRITTNEY ROMERO Organization [facility] Address [address] [place] [address] Care Team Providers Care Watch Caser Name Role Phone BRITTNEY ROMERO Unavailable PROBLEMS Type Condition ICD9-CM Code BJN41-MD Code Onset Dates Condition Status SNOMED Code Problem Enlarged thyroid E01.0 Active 87246822 Problem H/O breast augmentation Z98.82 Active 799909239 Problem COPD exacerbation J44.1 Active 730561396 Problem History of breast augmentation Z98.82 Active 984722185 Problem Decreased hearing of left ear H91.92 Active 002113282 Problem Chronic sinusitis, unspecified location J32.9 Active 78227697 Problem Chronic sinusitis of both maxillary sinuses J32.0 Active [id number] Problem Atelectasis J98.11 Active 94800923 Problem Severe persistent asthma with exacerbation J45.51 Active 462107806 Problem Primary osteoarthritis, left ankle and foot M19.072 Active 29421329 Problem Chronic obstructive pulmonary disease, unspecified J44.9 Active 487313935 Problem Primary osteoarthritis of right foot M19.071 Active 431158522 Problem Right wrist effusion M25.431 Active 958093852 Problem Arthritis of both hips M12.9 Active 00393122 Problem Hyperthyroidism E05.90 Active 46334638 Problem Essential hypertension I10 Active 37828877 Problem Atrial fibrillation, unspecified type I48.91 Active 04459517 Problem Depressive disorder, not elsewhere classified F32.9 Active 70091071 Problem Rosacea L71.9 Active 678200651 ALLERGIES Substance Reaction Event Type Date Status Sulfamethoxazole sores in mouth Drug Allergy Dec, Active Penicillin V Potassium hives Drug Allergy Dec, Active Bactrim DS Unknown Drug Allergy Dec, Active ENCOUNTERS Encounter Location Date Diagnosis [place] [id number] [facility] [address] [id number] [place] [id number] Mar, [facility] [place] [address] [id number] [id number] Mar, [facility] [address] [id number] [id number] Mar, Dental examination Z01.20 [facility] [address] [id number][place] [id number] Feb, [facility] [address] [id number][place] [id number] Feb, [facility] [address] [id number], [place] [id number] Feb, [facility] [address] [id number][place] [id number] Feb, [facility] [id number] [place] [address] [id number] January, [facility] [id number] [place] [address] [id number] January, Breast tenderness in female N64.4 ; Atypical chest pain R07.89 and History of breast augmentation Z98.82 [facility] [address] [id number][place] [id number] Dec, Jaw pain R68.84 [facility] [address] [id number][place] [id number] Dec, [facility] [address] [id number][place] [id number] Dec, Chronic sinusitis, unspecified location J32.9 ; Swelling of left side of face R22.0 and Decreased hearing of left ear H91.92 [facility] [place] [address] [facility] [address] [id number][place] [id number] Nov, Dental examination Z01.20 [facility] [address] [id number], [place] [address] Nov, Chronic obstructive pulmonary disease, unspecified J44.9 [facility] [address] [id number][place] [id number] Oct, Chronic obstructive pulmonary disease, unspecified J44.9 [facility] [address] [id number][place] [id number] Sep, [facility] [id number][place] [id number] Sep, [facility] [id number][place] [id number] Sep, Atelectasis J98.11 and Severe persistent asthma with exacerbation J45.51 [address] [place] [address] [id number] Sep, [place] [id number] [place] [address] [id number] Sep, Cough R05 ; Shortness of breath R06.02 ; Low oxygen saturation R79.81 ; Wheezing R06.2 ; Decreased breath sounds at right lung base R09.89 ; Fever, unspecified fever cause R50.9 and COPD exacerbation J44.1 [facility] [address] [place] [address] [id number], [place] [id number] Aug, Chronic sinusitis, unspecified location J32.9 and Acute mucoid otitis media of left ear H65.112 [place] [id number] [place] [address] [id number] Aug, Medial epicondylitis of left elbow M77.02 ; Chronic sinusitis of both maxillary sinuses J32.0 and History of sinus surgery Z98.890 [address]00565[place] [id number] Jul, [place] [id number] [place] [address] [id number] Jul, [address] [place] [address] [id number] Jul, Atrial fibrillation, unspecified type I48.91 ; Enlarged thyroid E01.0 ; Hyperthyroidism E05.90 and Pre-diabetes R73.03 [address] [place] [address] [id number] Jul, Elevated blood sugar R73.9 [place] [id number] [place] [address] [id number] Jul, Atrial fibrillation, unspecified type I48.91 and Hyperthyroidism E05.90 [facility] [address]00565100[place] [address] Jul, Atrial fibrillation, unspecified type I48.91 and Hyperthyroidism E05.90 [facility] [address] [place] [address] [id number] Jun, Acute recurrent frontal sinusitis J01.11 [facility] [id number] [place] [address] [id number] Jun, [place] [id number] [place] [address] [id number] May, Screening breast examination Z12.31 and H/O breast augmentation Z98.82 [place] [id number] [place] [address] [id number] May, [place] [id number] [place] [address] [id number] May, Nasal polyp J33.9 and Acute non-recurrent frontal sinusitis J01.10 [address] [place] [address] [id number] May, COPD exacerbation J44.1 [place] [id number] [place] [address] [id number] Apr, [place] [id number] [place] [address] [id number] January, Enlarged thyroid E01.0 and COPD exacerbation J44.1 [place] [id number] [place] [address] [id number] January, Chronic obstructive pulmonary disease, unspecified J44.9 [address] [place] [address] [id number] Dec, [place] [id number] [place] [address] [id number] Dec, [place] [id number] [place] [address] [id number] Dec, Cough R05 ; Shortness of breath R06.02 ; Urinary frequency R35.0 and Chronic obstructive pulmonary disease, unspecified J44.9 [place] [id number] [place] [address] [id number] Nov, Bronchitis J40 and Cough R05 [address] [id number] Aug, Pain of left hand M79.642 ; Atrial fibrillation, unspecified type I48.91 and Screening for hyperlipidemia Z13.[address] [id number] Aug, [address] [id number] Aug, Pain of left foot M79.672 ; Pain in right foot M79.671 ; Pain of left hand M79.642 ; Pain in right hand M79.641 ; Screening for hyperlipidemia Z13.220 and Atrial fibrillation, unspecified type I48.[address] [id number] Jul, Rash R21 ; Arthritis of both hips M12.9 ; Depressive disorder, not elsewhere classified F32.9 ; Atrial fibrillation, unspecified type I48.91 ; Hyperthyroidism E05.90 and Chronic obstructive pulmonary disease, unspecified J44.9 [place] [address] [address] Jun, [facility] [address] [id number]- [address] Jun, Rosacea L71.[address] [id number] Jun, Rosacea L71.9 and Oral herpes simplex infection B00.[address] [id number] Jun, Rash R21 [address] [id number] Jun, Asthma exacerbation J45.[address] [id number] Apr, [address] [id number] Apr, Acute diffuse otitis externa of right ear H60.311 and Rash R21 [facility] [id number] [place] [address] Feb, Rash R21 [facility] [id number] [place] [address]- 2775 Feb, [facility] [id number] [place] [address] [id number] January, Hyperthyroidism E05.90 [facility] [id number] [place] [address] [id number] January, Atrial fibrillation, unspecified type I48.91 and Hyperthyroidism E05.90 [facility] [address] [place] [address]- 8017 January, [place] [id number] [place] [address] [id number] January, Atrial fibrillation, unspecified type I48.91 [place] [id number] [place] [address] [id number] Dec, Asthma exacerbation J45.901 [place] [id number] [place] [address] [id number] Dec, [place] [id number] [place] [address] [id number] Oct, Acute maxillary sinusitis, recurrence not specified J01.00 and Acute cystitis with hematuria N30.01 [place] [id number] [place] [address] [id number] Oct, Sinusitis J32.9 [address] [place] [address] [id number] Sep, Chronic obstructive pulmonary disease, unspecified J44.9 ; Depressive disorder, not elsewhere classified F32.9 ; Arthritis of both hips M12.9 and Essential hypertension I10 [facility] [address] [id number] [id number] Sep, [address] [place] [address] [id number] Sep, [facility] [id number], [place] [id number] Sep, Right hip pain M25.551 [facility] [id number] [place] [address] [id number] Sep, [facility] [id number] [place] [address] [id number] Sep, [facility] [id number] [place] [address] [id number] Sep, Hemoptysis R04.2 ; Pain in right hip M25.551 and Pain in left hip M25.552 [facility] [id number] [place] [address] [id number] Aug, [facility] [id number] [place] [address] [id number] Aug, Sinusitis J32.9 ; Cough R[address] [facility] [address] [place] [id number] [place] [address] [id number] May, [facility] [id number] [place] [address] [id number] May, [place] [id number] [place] [address] [id number] May, [facility] [id number] [place] [address] [id number] Apr, Chronic airway obstruction, not elsewhere classified [id number] [place] [address] [id number] Apr, [place] [id number] [place] [address] [id number] Apr, Bronchitis, chronic obstructive, with exacerbation 491.21 [address] [place] [address] [id number] Mar, [place] [id number] [place] [address] [id number] Mar, Asthma, unspecified, with (acute) exacerbation 493.92 and Rhinitis 472.0 [place] [id number] [place] [address] [id number] Feb, [address] [id number] [id number] Feb, [address] [place] [address] [id number] Feb, Pituitary incidentaloma 227.3 and Abnormal MRI of the head 793.0 [address] [place] [address] [id number] Feb, [place] [id number] [place] [address] [id number] January, Muscle weakness of lower extremity 728.87 ; Abnormal involuntary movements 781.0 ; Unspecified otitis media 382.9 and Other general symptoms 780.99 [place] [id number] [place] [address] [id number] January, Acute sinusitis, unspecified 461.9 and Muscle weakness of lower extremity 728.87 [address] [place] [address] [id number] January, Bronchitis 490 and Cough 786.2 [address] [id number] Dec, [address] [place] [address] [id number] Dec, [address] [place] [address] [id number] Dec, [facility] [address]00565100[place] [address]- [address] Dec, [facility] [id number] [place] [address] 87119- 7941 Dec, [facility] [address] [place] [address] 00866- 8811 Oct, [facility] [id number] [place] [address] 43572- 2070 Oct, [facility] [id number] [place] [address] 03731- 5638 Oct, [facility] [address]65100[place] [address]- 5893 Oct, 2014 [facility] [place] [facility] [address] [facility] [id number] [place] [address]- 6707 Oct, 2014 [facility] [place] [facility] [address] [facility] [id number] [place] [address]- 1994 Oct, 2014 [facility] [place] [facility] [address] [facility] [id number] [place] [address]- 8936 Oct, 2014 [facility] [address] [facility] [id number][place] [id number] Oct, 2014 [facility] [place] [facility] [address] [facility] [id number] [place] [address]- 3838 Oct, 2014 [facility] [place] [facility] [address] [id number] [address]- 7608 Oct, 2014 [facility] [place] [facility] [address] [id number] [address]- 2512 Oct, 2014 [facility] [address] [facility] [id number], [place] [id number] Aug, [facility] [place] [facility] [address]65[address] [address]- 9636 Aug, [facility] [address] [place] [id number], [place] [id number] Jul, [facility] [place] [facility] [address]65[address] [address]- 4378 Jul, [facility] [place] [facility] [address] [facility] [id number] [place] [address]- 3696 Jun, [facility] [address] [facility] [id number], [place] [id number] Jun, [facility] [place] [facility] [address] [facility] [id number] [place] [address]- 3307 14 Jun, 2014 [facility] [address] [facility] [id number], [place] [id number] 10 Jun, 2014 [facility] [place] [facility] [address] [facility] [id number] [place] [address]- 0756 Jun, [facility] [address] [id number] [place] [id number] May, [facility] [place] [facility] [address] [facility] [id number] [place] [address]- 4169 May, [facility] [address] [facility] [id number] [place] [id number] May, [facility] [place] [facility] [address] [id number] [place] [address]- 0554 May, [facility] [address] [id number] [place] [id number] May, [facility] [place] [facility] [address] [facility] [id number] [place] [address]- 1158 May, [facility] [place] [facility] [address] [facility] [id number] [place] [address]- 4796 Mar, [facility] [place] [facility] [address] [facility] [id number] [place] [address]- 8974 Mar, [facility] [address] [facility] [id number] [place] [id number] January, [facility] [place] [facility] [address] [facility] [id number] [place] [address]- 6873 January, [facility] [address] [facility] [id number] [place] [id number] Oct, [facility] [place] [facility] [address] [facility] [id number] [place] [address]- 5784 Oct, [facility] [place] [facility] [address] [id number] [place] [address]- 0039 Jul, [facility] [place] [facility] [address] [facility] [id number] [place] [address]- 1684 Jun, [facility] [place] [facility] [address] [facility] [id number] [place] [address]- 4980 Jun, [facility] [place] [facility] [address] [facility] [id number] [place] [address]- 6780 May, [facility] [place] [facility] [address] [id number] [place] [address]- 9127 May, [facility] [place] [facility] [address] [id number] [place] [address]- 5028 Apr, [facility] [place] [facility] [address] [id number] [place] [address]- 3030 Apr, [facility] [place] [facility] [address] [id number] [place] [address]- 3276 Mar, [facility] [place] [facility] [address] [id number] [place] [address]- 1373 Feb, [facility] [place] [facility] [address] [id number] [place] [address]- 4852 Nov, [facility] [place] [facility] [address] [id number] [place] [address]- 1486 Oct, [facility] [place] [facility] [address] [id number] [place] [address]- 7830 Oct, [facility] [place] [facility] [address] [id number] [place] [address]- 4435 Oct, [facility] [place] [facility] [address] [id number] [place] [address]- 4768 Oct, [facility] [place] [facility] [address] [id number] [place] [address]- 5789 Oct, [facility] [place] [facility] [address] [id number] [place] [address] 2547 Sep, [facility] [place] [facility] [address] [id number] [place] [address]- 2540 Sep, [facility] [place] [facility] [address] [id number] [place] [address]- 6043 Jul, [facility] [place] [facility] [address] [id number] [place] [address]- 2546 Jul, [facility] [place] [facility] [address] [id number] [place] [address]- 5434 17 May, 2011 [facility] [address] [id number] [place] [address]- 3637 06 May, 2011 [facility] [address] [id number] [place] [id number] 05 May, 2011 [facility] [address] [id number] [place] [address]- 8276 04 May, 2011 [facility] [place] [facility] [address] [id number] [place] [address]- 7264 04 May, 2011 [facility] [address] [id number] [place] [address]- 1585 May, 2011 [facility] [place] [facility] [address] [id number] [place] [address]- 1341 Apr, [facility] [place] [facility] [address] [id number] [place] [address]- 4011 Apr, [facility] [address] [id number] [place] [address]- 0540 Apr, [facility] [place] [facility] [address] [id number] [place] [address]- 3614 Mar, [facility] [address] [id number] [place] [address]- 4255 Mar, [facility] [place] [facility] [address] [id number] [place] [address]- 9714 Mar, [facility] [place] [facility] [address] [id number] [place] [address]- 8336 Mar, [facility] [place] [facility] [address] [id number] [place] [address]- 9748 Feb, [facility] [place] [facility] [address] [id number] [place] [id number] Feb, [facility] [place] [facility] [address] [id number] [place] [address]- 7392 Feb, [facility] [place] [facility] [address] [id number] [place] [id number] Feb, [facility] [address] [id number] [place] [address]- 2546 Feb, [facility] [address] [id number] [place] [address]- 2546 Feb, [facility] [address] [id number][place] [id number] January, [facility] [address] [id number] [place] [address]- 2546 January, [facility] [address] [id number] [place] [id number] January, [facility] [address] [id number] [place] [address]- 2546 January, [facility] [address] [id number] [place] [id number] January, [facility] [address] [id number] [place] [address]- 2546 January, [facility] [address] [id number] [place] [address]- 4086 January, [facility] [address] [id number] [place] [address]- 2546 January, [facility] [address] [id number] [place] [address]- 3726 Dec, [facility] [address] [id number] [place] [address]- 2546 Dec, [facility] [place] [facility] [address] [id number] [place] [address]- 1156 Dec, [facility] [place] [facility] [address] [id number] [place] [address]- 3916 Dec, [facility] [address] [id number] [place] [address]- 2286 Dec, [facility] [address] [id number], [place] [id number] Dec, [facility] [address] [id number] [place] [address]- 2816 Nov, [facility] [place] [facility] [address] [id number] [place] [address]- 2546 Nov, [facility] [address] [id number] [place] [address]- 2546 Nov, [facility] [address] [id number] [place]REEK[place] [id number] Oct, [facility] [address] [id number] [place]REEK[place] [id number] Oct, [facility] [address] [facility] [id number] [place] [address]- 2546 Oct, [facility] [address] [id number], [place] [id number] Sep, [facility] [address] [facility] [id number] [place] [address] Sep, [facility] [address] [id number] [id number] Sep, [facility] [address] [facility] [id number][place] [id number] Sep, [facility] [address] [facility] [id number] [place] [address] Aug, [facility] [place] [facility] [address] [id number] [place] [address] Aug, [facility] [place] [facility] [address] [id number] [place] [address] Aug, [facility] [address] [facility] [id number] [place] [address] Aug, [facility] [place] [facility] [address] [facility] [id number] [place] [address] Jul, [facility] [address] [facility] [id number] [place] [address] 02 Jul, 2011 [facility] [address] [id number] [place] [address] 13 May, 2011 [facility] [address] [id number] [place] [address] 10 Jan, 2011 [facility] [address] [id number] [place] [address] 20 Dec, 2010 [facility] [address] [id number] [place] [address] Nov, [facility] [address] [id number] [place] [address] Aug, [facility] [address] [id number] [place] [address] Aug, [facility] [address] [id number] [place] [address] Aug, [facility] [address] [id number] [place] [address] 08 Aug, 2010 [facility] [address] [id number] [place] [address] Aug, [facility] [address] [facility] [id number] [place] [address] Aug, [facility] [address] [id number] [place] [address] 27 Jun, 2010 [facility] [address] [id number] [place] [address] Jun, [facility] [address] [id number] [place] [address] 13 Jun, 2010 [facility] [place] [facility] [address] [id number] [place] [address] Jun, [facility] [address] [id number] [place] [address] Jun, [facility] [address] [facility] [id number] [place] [address] 14 May, 2010 [facility] [address] [facility] [id number] [place] [address] 10 May, 2010 IMMUNIZATIONS No Known Immunizations SOCIAL HISTORY Never Assessed REASON FOR VISIT hearing deficit in left ear PLAN OF CARE Activity Details Follow Up 2 Weeks and prn if not improving Reason:hearing diminished VITAL SIGNS Height 62 in 2017-12-29 Weight 198.4 lbs 2017-12-29 Temperature 97.4 degrees Fahrenheit 2017-12-29 Heart Rate 72 bpm 2017-12-29 Respiratory Rate 16 2017-12-29 BMI 36.28 kg/m2 2017-12-29 Blood pressure systolic 150 mmHg 2017-12-29 Blood pressure diastolic 90 mmHg 2017-12-29 MEDICATIONS Medication Instructions Dosage Frequency Start Date End Date Duration Status Eliquis 5 mg Orally 2 times a day 1 tablet 12h January, Active Fluoxetine 20 mg 1 capsule Once a day orally Active DuoNeb 0.5-2.5 (3) MG/3ML Inhalation every4- 6 hrs 3 ml Sep, Unknown ProAir HFA 108 (90 Base) MCG/ACT INHALE 2 PUFFS NEEDED 4 TIMES A DAY Active Advair Diskus 500-50 MCG/DOSE Inhalation Twice a day 1 puff 12h Oct, Active Qvar 40 mcg/act Inhalation Twice a day 1 puff 12h Mar, 0 days Unknown Flonase 50 MCG/ACT Nasally 2 times a day 1 spray in each nostril 12h Active Fluoxetine HCl 20 MG TAKE 1 CAPSULE ONCE A DAY ORALLY 30 Unknown EPINEPHrine 0.3 mg/0.3 mL 0.3 mg by Intramuscular route 1 time per dayPRNfor anyphylaxis Feb, Unknown Benadryl Allergy 25 MG Orally every 6 hrs 1 tablet as needed 6h Unknown Doxycycline Monohydrate 100 mg Orally every 12 hrs 1 capsule 12h Sep, 10 days Unknown Albuterol Sulfate (2.5 MG/3ML) 0.083% inhalation 4-6 hours as needed 1 Each by Inhalation route every 6 hours for cough and wheezePRNfor wheezing or cough Sep, Unknown ZyrTEC 10 mg 1 tablet by Oral route 1 time per day Dec, Active Advair Diskus 500-50 MCG/DOSE INHALE 1 PUFF TWICE DAILY 30 Unknown Singulair 10 mg 1 tablet by Oral route 1 time per day for 30 days Jun, Not-Taking Metoprolol Succinate ER 100 MG Orally Once a day 1 tablet 24h Active Sudafed 60 mg Orally every 6 hrs 1 tablet as needed 6h May, Unknown Cardizem CD 180 MG Orally Once a day 1 capsule 24h January, Active Tapazole 5 mg Orally Once a day 4 tablet with food 24h Active PredniSONE 20 mg Orally Once a day 2 tablet 24h Dec, Dec, 05 days Active RESULTS No Results PROCEDURES No [...] breast augmentation 2003 Surgical History tubal ligation 2003 Surgical History section 1992, 1996, 2002 Surgical History tummy tuck 2002 Surgical History Sinus Surgery 2017 Hospitalization History childbirth, surgeries Hospitalization History [facility] Afib w/ R[facility], HTN, COPD 01/24/16 Hospitalization History A Fib February 2016
--- OUTSIDE RECORDS SUMMARY | 2019-01-13 10:04 | XMS REPORT ---
Author Author BRITTNEY ROMERO Organization [facility] Address [address] [place] [address] Care Team Providers Care Ops Analyst Name Role Phone BRITTNEY ROMERO Unavailable PROBLEMS Type Condition ICD9-CM Code LHA96-OF Code Onset Dates Condition Status SNOMED Code Problem Enlarged thyroid E01.0 Active 39638294 Problem H/O breast augmentation Z98.82 Active 342904200 Problem COPD exacerbation J44.1 Active 700619297 Problem History of breast augmentation Z98.82 Active 240561100 Problem Decreased hearing of left ear H91.92 Active 632265706 Problem Chronic sinusitis, unspecified location J32.9 Active 36411802 Problem Chronic sinusitis of both maxillary sinuses J32.0 Active [id number] Problem Atelectasis J98.11 Active 61150932 Problem Severe persistent asthma with exacerbation J45.51 Active 446202179 Problem Primary osteoarthritis, left ankle and foot M19.072 Active 40421315 Problem Chronic obstructive pulmonary disease, unspecified J44.9 Active 554102100 Problem Primary osteoarthritis of right foot M19.071 Active 533915010 Problem Right wrist effusion M25.431 Active 223650494 Problem Arthritis of both hips M12.9 Active 65981010 Problem Hyperthyroidism E05.90 Active 03021320 Problem Essential hypertension I10 Active 06472504 Problem Atrial fibrillation, unspecified type I48.91 Active 09342503 Problem Depressive disorder, not elsewhere classified F32.9 Active 86201967 Problem Rosacea L71.9 Active 758940698 ALLERGIES No Information ENCOUNTERS Encounter Location Date Diagnosis [facility] [address] [id number] [place] [id number] Mar, [facility] [address] [facility] [id number] [place] [id number] Mar, [facility] [address] [id number] [id number] Mar, Dental examination Z01.20 [facility] [address] [id number], [place] [id number] Feb, [facility] [address] [id number], [place] [id number] Feb, [facility] [address] [id number], [place] [id number] Feb, [facility] [place] [address] [id number], [place] [id number] Feb, [facility] [place] [address] [id number], [place] [id number] January, [facility] [place] [address] [id number], [place] [address] January, Breast tenderness in female N64.4 ; Atypical chest pain R07.89 and History of breast augmentation Z98.82 [facility] [place] [address] [id number], [place] [id number] Dec, Jaw pain R68.84 [facility] [place] [address] [id number], [place] [id number] Dec, [facility] [place] [address] [id number][place] [address] Dec, Chronic sinusitis, unspecified location J32.9 ; Swelling of left side of face R22.0 and Decreased hearing of left ear H91.92 [facility] [address] [facility] [address] [id number], [place] [id number] Nov, Dental examination Z01.20 [facility] [address] [id number][place] [address] Nov, Chronic obstructive pulmonary disease, unspecified J44.9 [facility] [place] [address] [id number], [place] [address] Oct, Chronic obstructive pulmonary disease, unspecified J44.9 [facility] [address] [id number], [place] [address] Sep, [facility] [address] [id number], [place] [address] Sep, [facility] [address]hele[address] [place], [place] [address] [id number], [place] [id number] Sep, Atelectasis J98.11 and Severe persistent asthma with exacerbation J45.[address] [place] [address] [id number] Sep, [place] [id number] [place] [address] [id number] Sep, Cough R05 ; Shortness of breath R06.02 ; Low oxygen saturation R79.81 ; Wheezing R06.2 ; Decreased breath sounds at right lung base R09.89 ; Fever, unspecified fever cause R50.9 and COPD exacerbation J44.1 [facility] [address] [id number], [place] [id number] Aug, Chronic sinusitis, unspecified location J32.9 and Acute mucoid otitis media of left ear H65.112 [place] [id number] [place] [address] [id number] Aug, Medial epicondylitis of left elbow M77.02 ; Chronic sinusitis of both maxillary sinuses J32.0 and History of sinus surgery Z98.890 [address] [place] [address] [id number] Jul, [address] [place] [address] [id number] Jul, [place] [id number] [place] [address] [id number] Jul, Atrial fibrillation, unspecified type I48.91 ; Enlarged thyroid E01.0 ; Hyperthyroidism E05.90 and Pre-diabetes R73.[address] [place] [address] [id number] Jul, Elevated blood sugar R73.9 [address] [place] [address] [id number] Jul, Atrial fibrillation, unspecified type I48.91 and Hyperthyroidism E05.90 [facility] [address] [place] [address]228- 9767 Jul, Atrial fibrillation, unspecified type I48.91 and Hyperthyroidism E05.90 [place] [id number] [place] [address] [id number] Jun, Acute recurrent frontal sinusitis J01.11 [place] [address] [place] [address] [id number] Jun, [place] [address] [place] [address] [id number] May, Screening breast examination Z12.31 and H/O breast augmentation Z98.82 [place] [id number] [place] [address] [id number] May, [address] [id number] May, Nasal polyp J33.9 and Acute non-recurrent frontal sinusitis J01.10 [place] [id number] [place] [address] [id number] May, COPD exacerbation J44.1 [place] [id number] [place] [address] [id number] Apr, [place] [address] [place] [address] [id number] January, Enlarged thyroid E01.0 and COPD exacerbation J44.1 [place] [id number] [place] [address] [id number] January, Chronic obstructive pulmonary disease, unspecified J44.9 [place] [id number] [place] [address] [id number] Dec, [place] [id number] [place] [address] [id number] Dec, [place] [address] [place] [address] [id number] Dec, Cough R05 ; Shortness of breath R06.02 ; Urinary frequency R35.0 and Chronic obstructive pulmonary disease, unspecified J44.9 [place] [address] [place] [address] [id number] Nov, Bronchitis J40 and Cough R05 [place] [address] [address] Aug, Pain of left hand M79.642 ; Atrial fibrillation, unspecified type I48.91 and Screening for hyperlipidemia Z13.220 [place] [address] [place] [address] [id number] Aug, [address] [id number] Aug, Pain of left foot M79.672 ; Pain in right foot M79.671 ; Pain of left hand M79.642 ; Pain in right hand M79.641 ; Screening for hyperlipidemia Z13.220 and Atrial fibrillation, unspecified type I48.[address] [id number] Jul, Rash R21 ; Arthritis of both hips M12.9 ; Depressive disorder, not elsewhere classified F32.9 ; Atrial fibrillation, unspecified type I48.91 ; Hyperthyroidism E05.90 and Chronic obstructive pulmonary disease, unspecified J44.9 [facility] [address] [address] Jun, [facility] [address] [id number]- 4011 Jun, Rosacea L71.[address] [id number] Jun, Rosacea L71.9 and Oral herpes simplex infection B00.2 [place] [id number] [place] [address] [id number] Jun, Rash R21 [address] [id number] Jun, Asthma exacerbation J45.[address] [id number] Apr, [address] [id number] Apr, Acute diffuse otitis externa of right ear H60.311 and Rash R21 [facility] [address] [place] [address] Feb, Rash R21 [facility] [id number] [place] [address]- 8[address] Feb, [facility] [id number] [place] [address] [id number] January, Hyperthyroidism E05.90 [facility] [address] [id number] [place] [address] [id number] January, Atrial fibrillation, unspecified type I48.91 and Hyperthyroidism E05.90 [facility] [id number] [place] [address] 27362- 2546 January, [facility] [address] [id number] January, Atrial fibrillation, unspecified type I48.91 [facility] [id number] [place] [address] [id number] Dec, Asthma exacerbation J45.901 [facility] [id number] [place] [address] [id number] Dec, [facility] [id number] [place] [address] [id number] Oct, Acute maxillary sinusitis, recurrence not specified J01.00 and Acute cystitis with hematuria N30.01 [facility] [address] [id number] [place] [address] [id number] Oct, Sinusitis J32.9 [place] [id number] [place] [address] [id number] Sep, Chronic obstructive pulmonary disease, unspecified J44.9 ; Depressive disorder, not elsewhere classified F32.9 ; Arthritis of both hips M12.9 and Essential hypertension I10 [facility] [address] [id number], [place] [id number] Sep, [facility] [id number] [place] [address] [id number] Sep, [place] [id number] [place] [address] [id number] Sep, Right hip pain M25.551 [place] [id number], [place] [id number] Sep, [facility] [id number], [place] [id number] Sep, [facility] [id number], [place] [id number] Sep, Hemoptysis R04.2 ; Pain in right hip M25.551 and Pain in left hip M25.552 [facility] [id number], [place] [id number] Aug, [facility] [id number], [place] [address]36[address] Aug, Sinusitis J32.9 ; Cough R05 and Wheezing R06.2 [facility] [address]00565100[place] [address] May, [facility] [id number], [place] [id number] May, [facility] [id number], [place] [id number] May, [facility] [id number], [place] [id number] Apr, Chronic airway obstruction, not elsewhere classified 496 [facility] [id number], [place] [id number] Apr, [place] [id number], [place] [id number] Apr, Bronchitis, chronic obstructive, with exacerbation 491.21 [facility] [id number], [place] [id number] Mar, [facility] [id number], [place] [id number] Mar, Asthma, unspecified, with (acute) exacerbation 493.92 and Rhinitis 472.0 [facility] [id number], [place] [id number] Feb, [place] [id number], [place] [id number] Feb, [facility] [place]00565100[place] [address] Feb, Pituitary incidentaloma 227.3 and Abnormal MRI of the head 793.0 [address] [place] [address] [id number] Feb, [place] [address] [place] [address] [id number] January, Muscle weakness of lower extremity 728.87 ; Abnormal involuntary movements 781.0 ; Unspecified otitis media 382.9 and Other general symptoms 780.99 [address] [place] [address] [id number] January, Acute sinusitis, unspecified 461.9 and Muscle weakness of lower extremity 728.87 [place] [address] [place] [address] [id number] January, Bronchitis 490 and Cough 786.2 [address]00565100[place], [place] [id number] Dec, [address] [place] [address] [id number] Dec, [address] [place] [address] [id number] Dec, [facility] [id number] [place] [address] [id number]- 5220 Dec, [facility] [id number] [place] [address] [id number]- 7471 Dec, [facility] [id number] [place] [address] [id number]- 8443 Oct, [facility] [id number] [place] [address] [id number]- 6027 Oct, [facility] [address] [id number]- 0940 Oct, [facility] [id number] [place] [address] [id number]- 7963 Oct, [facility] [id number] [place] [address] 13551- 5946 Oct, 2014 [facility] [place] [facility] [address] [facility] [id number][place] [address]- 3911 Oct, 2014 [facility] [place] [facility] [address] [place] [address] [id number] [address]- 9127 Oct, 2014 [facility] [address] [facility] [id number], [place] [id number] Oct, 2014 [facility] [place] [facility] [address] [facility] [id number] [place] [address] 84970- 9517 Oct, 2014 [facility] [place] [facility] [address] [place] [address] 26438- 0641 Oct, 2014 [facility] [place] [facility] [address]00565100[place] [address]- 0865 Oct, 2014 [facility] [place] [id number], [place] [id number] Aug, [facility] [place] [facility] [address]00565100[place], [place] [address]- 3634 Aug, [facility] [place] [id number], [place] [id number] Jul, [facility] [place] [facility] [address]00565100[place], [place] [address]- 6856 Jul, [facility] [place] [facility] [address]00565100[place] [address]- 1436 Jun, [facility] [place] [address] [facility] [id number], [place] [id number] 15 Jun, 2014 [facility] [place] [facility] [address] [facility] [id number][place] [address]- 8422 14 Jun, 2014 [facility] [place] [address] [id number], [place] 990692282 Jun, [facility] [place] [facility] [address] [facility] [id number][place] [address]- 2546 Jun, [facility] [place] [id number], [place] 750[address]69[address] May, [facility] [place] [facility] [address] [id number] [place] [address]- 1266 May, [facility] [place] [address] [facility] [id number] [place] [id number] May, [facility] [place] [facility] [address] [id number] [place] [address] 2546 May, [facility] [place] [address] [facility] [id number] [place] [id number] May, [facility] [place] [facility] [address] [id number] [place] [address] 2546 May, [facility] [place] [facility] [address] [facility] [id number] [place] [address]- 3266 Mar, [facility] [place] [facility] [address] [facility] [id number] [place] [address]- 2116 Mar, [facility] [place] [address] [facility] [id number] [place] [id number] January, [facility] [place] [facility] [address] [id number] [place] [address]- 9014 January, [facility] [place] [address] [facility] [id number] [place] [id number] Oct, [facility] [place] [facility] [address] [facility] [id number] [place] [address]- 6186 Oct, [facility] [place] [facility] [address] [facility] [id number] [place] [address]- 9134 Jul, [facility] [place] [facility] [address] [id number], [place] [address]- 4263 Jun, [facility] [place] [facility] [address] [id number] [place] [address]- 3381 Jun, [facility] [place] [facility] [address] [id number] [place] [address]- 0086 May, [facility] [place] [facility] [address] [facility] [id number] [place] [address]- 3519 May, [facility] [place] [facility] [address] [id number] [place] [address]- 6594 Apr, [facility] [place] [facility] [address] [id number] [place] [address]- 1690 Apr, [facility] [place] [facility] [address] [id number] [place] [address]- 1179 Mar, [facility] [place] [facility] [address] [id number] [place] [address]- 3319 Feb, [facility] [place] [facility] [address] [id number] [place] [address]- 2854 Nov, [facility] [place] [facility] [address] [id number] [place] [address]- 3481 Oct, [facility] [place] [facility] [address] [facility] [id number] [place] [address]- 4807 Oct, [facility] [place] [facility] [address] [id number] [place] [address]- 2776 Oct, [facility] [place] [facility] [address] [id number] [place] [address]- 4440 Oct, [facility] [place] [facility] [address] [facility] [id number] [place] [address]- 5668 Oct, [facility] [place] [facility] [address] [facility] [id number] [place] [address]- 3861 Sep, [facility] [place] [facility] [address] [id number], [place] [address]- 0103 Sep, [facility] [place] [facility] [address] [id number] [place] [address]- 5806 Jul, [facility] [place] [facility] [address] [id number] [place] [address]- 7497 Jul, [facility] [place] [facility] [address] [id number] [place] [address]- 1320 May, [facility] [place] [facility] [address] [id number], [place] [address]- 5011 06 May, 2011 [facility] [place] [address] [id number] [place] [id number] 05 May, 2011 [facility] [place] [facility] [address] [id number] [place] [address]- 8465 04 May, 2011 [facility] [place] [facility] [address] [id number] [place] [address]- 3916 04 May, 2011 [facility] [place] [facility] [address] [id number], [place] [address]- 9305 May, 2011 [facility] [place] [facility] [address] [id number] [place] [address]- 8702 Apr, [facility] [place] [facility] [address] [id number], [place] [address]- 5386 Apr, [facility] [place] [facility] [address] [id number], [place] [address]- 1708 Apr, [facility] [place] [facility] [address] [id number], [place] [address]- 3951 Mar, [facility] [place] [facility] [address] [id number], [place] [address]- 4328 Mar, [facility] [place] [facility] [address] [facility] [id number], [place] [address]- 9179 Mar, [facility] [place] [facility] [address] [id number], [place] [address]- 8321 Mar, [facility] [place] [facility] [address] [id number], [place] [address]- 5982 Feb, [facility] [place] [facility] [address] [id number] [place] [id number] Feb, [facility] [place] [facility] [address] [id number], [place] [address]- 9465 Feb, [facility] [place] [facility] [address] [id number] [place] [id number] Feb, [facility] [place] [facility] [address] [id number][place] [address]- 2546 Feb, [facility] [address] [id number], [place] [address]- 3366 Feb, [facility] [address] [id number], [place] [id number] January, [facility] [address] [id number], [place] [address]- 9466 January, [facility] [place] [facility] [address] [id number], [place] [id number] January, [facility] [place] [facility] [address] [id number] [place] [address]- 9456 January, [facility] [place] [facility] [address] [id number] [address]0685 January, [facility] [place] [facility] [address] [id number], [place] [address]- 5296 January, [facility] [place] [facility] [address] [id number], [place] [address]- 1506 January, [facility] [place] [facility] [address] [id number], [place] [address]- 5896 January, [facility] [place] [facility] [address] [id number], [place] [address]- 8086 Dec, [facility] [place] [facility] [address] [id number], [place] [address]- 7116 Dec, [facility] [place] [facility] [address] [id number], [place] [address]- 5166 Dec, [facility] [place] [facility] [address] [id number], [place] [address]- 1026 Dec, [facility] [place] [facility] [address] [id number][place] [address] Dec, [facility] [address] [id number] [place] [id number] Dec, [facility] [place] [facility] [address] [id number], [place] [address] Nov, [facility] [address] [id number][place] [address] Nov, [facility] [address] [facility] [id number], [place] [address] Nov, [facility] [address] [id number][place] [id number] Oct, [facility] [address] [id number][place] [id number] Oct, [facility] [address] [id number], [place] [address] Oct, [facility] [address] [id number] [id number] Sep, [facility] [address] [id number], [place] [address] Sep, [facility] [address] [facility] [id number][place] [id number] Sep, [facility] [address] [facility] [id number][place] [id number] Sep, [facility] [id number], [place] [address] Aug, [facility] [address] [facility] [id number], [place] [address] Aug, [facility] [address] [id number], [place] [address] Aug, [facility] [place] [facility] [address] [facility] [id number], [place] [address] Aug, [facility] [place] [facility] [address] [facility] [id number], [place] [address] Jul, [facility] [place] [facility] [address] [facility] [id number][place] [address] Jul, [facility] [address] [facility] [id number], [place] [address] 13 May, 2011 [facility] [place] [facility] [address] [id number] [place] [address] 10 Jan, 2011 [facility] [place] [facility] [address] [id number] [place] [address] 20 Dec, 2010 [facility] [place] [facility] [address] [id number] [place] [address] 18 Nov, 2010 [facility] [place] [facility] [address] [id number] [place] [address] Aug, [facility] [place] [facility] [address] [id number] [place] [address] Aug, [facility] [place] [facility] [address] [id number] [place] [address] Aug, [facility] [place] [facility] [address] [id number] [place] [address] Aug, [facility] [place] [facility] [address] [id number] [place] [address] Aug, [facility] [place] [facility] [address] [id number] [place] [address] Aug, [facility] [place] [facility] [address] [id number] [place] [address] 27 Jun, 2010 [facility] [place] [facility] [address] [id number] [place] [address] 26 Jun, 2010 [facility] [place] [facility] [address] [id number] [place] [address] 13 Jun, 2010 [facility] [place] [facility] [address] [id number] [place] [address] 12 Jun, 2010 [facility] [place] [facility] [address] [id number] [place] [address] 12 Jun, 2010 [facility] [place] [facility] [address] [id number] [place] [address] 14 May, 2010 [facility] [place] [facility] [address] [facility] [id number] [place] [address] 10 May, 2010 IMMUNIZATIONS No Known Immunizations SOCIAL HISTORY Never Assessed REASON FOR VISIT requesting return call PLAN OF CARE VITAL SIGNS [...]
--- OUTSIDE RECORDS SUMMARY | 2019-01-13 10:04 | XMS REPORT ---
Author Author BRITTNEY ROMERO Organization [facility] Address [address] [place] [address] Care Team Providers Care End User Consultant Name Role Phone BRITTNEY ROMERO Unavailable PROBLEMS Type Condition ICD9-CM Code NVA57-MJ Code Onset Dates Condition Status SNOMED Code Problem Enlarged thyroid E01.0 Active 13925617 Problem H/O breast augmentation Z98.82 Active 059666469 Problem COPD exacerbation J44.1 Active 178156368 Problem History of breast augmentation Z98.82 Active 317999399 Problem Decreased hearing of left ear H91.92 Active 935079592 Problem Chronic sinusitis, unspecified location J32.9 Active 52473442 Problem Chronic sinusitis of both maxillary sinuses J32.0 Active [id number] Problem Atelectasis J98.11 Active 19910670 Problem Severe persistent asthma with exacerbation J45.51 Active 918582717 Problem Primary osteoarthritis, left ankle and foot M19.072 Active 56968395 Problem Chronic obstructive pulmonary disease, unspecified J44.9 Active 007240795 Problem Primary osteoarthritis of right foot M19.071 Active 027713098 Problem Right wrist effusion M25.431 Active 642531997 Problem Arthritis of both hips M12.9 Active 14808722 Problem Hyperthyroidism E05.90 Active 18631768 Problem Essential hypertension I10 Active 40858236 Problem Atrial fibrillation, unspecified type I48.91 Active 60446354 Problem Depressive disorder, not elsewhere classified F32.9 Active 91228013 Problem Rosacea L71.9 Active [id number] ALLERGIES No Information ENCOUNTERS Encounter Location Date Diagnosis [facility] [address] [id number] [place] [id number] Mar, [facility] [address] [facility] [id number] [place] [id number] Mar, [facility] [address] [id number] [id number] Mar, Dental examination Z01.20 [facility] [address] [id number], [place] [id number] Feb, [facility] [address] [id number], [place] [id number] Feb, [facility] [address] [id number], [place] [id number] Feb, [facility] [place] [address] [id number], [place] [id number] Feb, [facility] [place] [address] [id number], [place] [id number] January, [facility] [place] [address] [id number][place] [address] January, Breast tenderness in female N64.4 ; Atypical chest pain R07.89 and History of breast augmentation Z98.82 [facility] [place] [address] [id number][place] [address] Dec, Jaw pain R68.84 [facility] [place] [address] [id number], [place] [id number] Dec, [facility] [place] [address] [id number], [place] [id number] Dec, Chronic sinusitis, unspecified location J32.9 ; Swelling of left side of face R22.0 and Decreased hearing of left ear H91.92 [facility] [address] [facility] [address] [id number], [place] [id number] Nov, Dental examination Z01.20 [facility] [address] [id number], [place] [id number] Nov, Chronic obstructive pulmonary disease, unspecified J44.9 [facility] [place] [address] [id number], [place] [address] Oct, Chronic obstructive pulmonary disease, unspecified J44.9 [facility] [address] [id number][place] [id number] Sep, [facility] [address] [id number], [place] [id number] Sep, [facility] [address] [place], [place] [address] [id number], [place] [address] Sep, Atelectasis J98.11 and Severe persistent asthma with exacerbation J45.[address] [place] [address] [id number] Sep, [place] [id number] [place] [address] [id number] Sep, Cough R05 ; Shortness of breath R06.02 ; Low oxygen saturation R79.81 ; Wheezing R06.2 ; Decreased breath sounds at right lung base R09.89 ; Fever, unspecified fever cause R50.9 and COPD exacerbation J44.1 [facility] [address] [id number], [place] [id number] Aug, Chronic sinusitis, unspecified location J32.9 and Acute mucoid otitis media of left ear H65.112 [place] [id number] [place] [address] [id number] Aug, Medial epicondylitis of left elbow M77.02 ; Chronic sinusitis of both maxillary sinuses J32.0 and History of sinus surgery Z98.890 [address] [place] [address] [id number] Jul, [address] [place] [address] [id number] Jul, [place] [id number] [place] [address] [id number] Jul, Atrial fibrillation, unspecified type I48.91 ; Enlarged thyroid E01.0 ; Hyperthyroidism E05.90 and Pre-diabetes R73.[address] [place] [address] [id number] Jul, Elevated blood sugar R73.9 [address] [place] [address] [id number] Jul, Atrial fibrillation, unspecified type I48.91 and Hyperthyroidism E05.90 [facility] [place] [address] [place] [address]- 0815 Jul, Atrial fibrillation, unspecified type I48.91 and Hyperthyroidism E05.90 [place] [id number] [place] [address] [id number] Jun, Acute recurrent frontal sinusitis J01.11 [place] [id number] [place] [address] [id number] Jun, [place] [id number] [place] [address] [id number] May, Screening breast examination Z12.31 and H/O breast augmentation Z98.82 [place] [id number] [place] [address] [id number] May, [address] [id number] May, Nasal polyp J33.9 and Acute non-recurrent frontal sinusitis J01.10 [place] [id number] [place] [address] [id number] May, COPD exacerbation J44.1 [place] [id number] [place] [address] [id number] Apr, [place] [id number] [place] [address] [id number] January, Enlarged thyroid E01.0 and COPD exacerbation J44.1 [place] [id number] [place] [address] [id number] January, Chronic obstructive pulmonary disease, unspecified J44.9 [place] [id number] [place] [address] [id number] Dec, [place] [address] [place] [address] [id number] Dec, [place] [address] [place] [address] [id number] Dec, Cough R05 ; Shortness of breath R06.02 ; Urinary frequency R35.0 and Chronic obstructive pulmonary disease, unspecified J44.9 [place] [id number] [place] [address] [id number] Nov, Bronchitis J40 and Cough R05 [place] [address] [place] [address] Aug, Pain of left hand M79.642 ; Atrial fibrillation, unspecified type I48.91 and Screening for hyperlipidemia Z13.220 [place] [address] [place] [address] [id number] Aug, [address] [id number] Aug, Pain of left foot M79.672 ; Pain in right foot M79.671 ; Pain of left hand M79.642 ; Pain in right hand M79.641 ; Screening for hyperlipidemia Z13.220 and Atrial fibrillation, unspecified type I48.[address] [id number] Jul, Rash R21 ; Arthritis of both hips M12.9 ; Depressive disorder, not elsewhere classified F32.9 ; Atrial fibrillation, unspecified type I48.91 ; Hyperthyroidism E05.90 and Chronic obstructive pulmonary disease, unspecified J44.9 [facility] [place] [address] [address] Jun, [facility] [place] [address] [id number]- 6144 Jun, Rosacea L71.[address] [id number] Jun, Rosacea L71.9 and Oral herpes simplex infection B00.2 [place] [id number] [place] [address] [id number] Jun, Rash R21 [address] [id number] Jun, Asthma exacerbation J45.[address] [id number] Apr, [address] [id number] Apr, Acute diffuse otitis externa of right ear H60.311 and Rash R21 [facility] [address] [place] [address] Feb, Rash R21 [facility] [place] [id number] [place] [address]- 2936 Feb, [facility] [id number] [place] [address] [id number] January, Hyperthyroidism E05.90 [facility] [id number] [place] [address] [id number] January, Atrial fibrillation, unspecified type I48.91 and Hyperthyroidism E05.90 [facility] [place] [id number] [place] [address]2377- 2546 January, [facility] [address] [id number] January, Atrial fibrillation, unspecified type I48.91 [facility] [id number] [place] [address] [id number] Dec, Asthma exacerbation J45.901 [facility] [id number] [place] [address] [id number] Dec, [facility] [id number] [place] [address] [id number] Oct, Acute maxillary sinusitis, recurrence not specified J01.00 and Acute cystitis with hematuria N30.01 [facility] [id number] [place] [address] [id number] Oct, Sinusitis J32.9 [place] [id number] [place] [address] [id number] Sep, Chronic obstructive pulmonary disease, unspecified J44.9 ; Depressive disorder, not elsewhere classified F32.9 ; Arthritis of both hips M12.9 and Essential hypertension I10 [facility] [address] [id number], [place] [id number] Sep, [facility] [id number] [place] [address] [id number] Sep, [place] [id number] [place] [address] [id number] Sep, Right hip pain M25.551 [place] [id number], [place] [id number] Sep, [facility] [id number], [place] [address]4038 Sep, [facility] [id number], [place] [id number] Sep, Hemoptysis R04.2 ; Pain in right hip M25.551 and Pain in left hip M25.552 [facility] [id number], [place] [id number] Aug, [facility] [id number], [place] [id number] Aug, Sinusitis J32.9 ; Cough R05 and Wheezing R06.2 [facility] [address]65100[place] [id number] May, [facility] [id number], [place] [id number] May, [facility] [id number], [place] [id number] May, [facility] [id number], [place] [id number] Apr, Chronic airway obstruction, not elsewhere classified 496 [facility] [id number], [place] [id number] Apr, [place] [id number], [place] [id number] Apr, Bronchitis, chronic obstructive, with exacerbation 491.21 [facility] [id number], [place] [id number] Mar, [facility] [id number], [place] [id number] Mar, Asthma, unspecified, with (acute) exacerbation 493.92 and Rhinitis 472.0 [facility] [id number], [place] [id number] Feb, [place] [id number], [place] [id number] Feb, [facility] [place]00565100[place] [id number] Feb, Pituitary incidentaloma 227.3 and Abnormal MRI of the head 793.0 [address] [place] [address] [id number] Feb, [place] [id number] [place] [address] [id number] January, Muscle weakness of lower extremity 728.87 ; Abnormal involuntary movements 781.0 ; Unspecified otitis media 382.9 and Other general symptoms 780.99 [address] [place] [address] [id number] January, Acute sinusitis, unspecified 461.9 and Muscle weakness of lower extremity 728.87 [place] [id number] [place] [address] [id number] January, Bronchitis 490 and Cough 786.2 [address]00565100[place] [id number] Dec, [address] [place] [address] [id number] Dec, [address] [place] [address] [id number] Dec, [facility] [place] [id number] [place] [address] [id number]- 6504 Dec, [facility] [place] [id number] [place] [address] [id number]- 0823 Dec, [facility] [place] [id number] [place] [address] [id number]- 1615 Oct, [facility] [place] [id number] [place] [address] [id number]- 2411 Oct, [facility] [place] [address] [id number]- 7663 Oct, [facility] [place] [id number] [place] [address] [id number]- 3997 Oct, [facility] [place] [id number] [place] [address] 60055- 3066 Oct, 2014 [facility] [place] [facility] [address] [facility] [id number], [place] [address]- 3209 Oct, 2014 [facility] [place] [facility] [address] [place] [address] [id number], [place] [address]- 2305 Oct, 2014 [facility] [address] [facility] [id number], [place] [id number] Oct, 2014 [facility] [place] [facility] [address] [facility] [id number] [place] [address] 89741- 0287 Oct, 2014 [facility] [place] [facility] [address] [place] [address] 83216- 7214 Oct, 2014 [facility] [place] [facility] [address]00565100[place], [place] [address]- 5737 Oct, 2014 [facility] [place] [id number], [place] [id number] Aug, [facility] [place] [facility] [address]00565100[place], [place] [address]- 4928 Aug, [facility] [place] [id number], [place] [id number] Jul, [facility] [place] [facility] [address]00565100[place], [place] [address]- 9656 Jul, [facility] [place] [facility] [address]00565100[place], [place] [address]- 1776 Jun, [facility] [place] [address] [facility] [id number], [place] [id number] 15 Jun, 2014 [facility] [place] [facility] [address] [facility] [place] [id number], [place] [address]- 1309 14 Jun, 2014 [facility] [place] [address] [place] [id number], [place] [id number] Jun, [facility] [place] [facility] [address] [facility] [id number], [place] [address]- 2546 Jun, [facility] [place] [id number], [place] [id number] May, [facility] [place] [facility] [address] [id number] [place] [address]- 8306 May, [facility] [place] [address] [facility] [id number] [place] [id number] May, [facility] [place] [facility] [address] [id number] [place] [address] 2546 May, [facility] [place] [address] [facility] [id number] [place] [id number] May, [facility] [place] [facility] [address] [id number] [place] [address] 2546 May, [facility] [place] [facility] [address] [facility] [id number] [place] [address]- 1756 Mar, [facility] [place] [facility] [address] [facility] [id number] [place] [address]- 4946 Mar, [facility] [place] [address] [facility] [id number] [place] [id number] January, [facility] [place] [facility] [address] [id number] [place] [address]- 5098 January, [facility] [place] [address] [facility] [id number] [place] [id number] Oct, [facility] [place] [facility] [address] [facility] [id number] [place] [address]- 5076 Oct, [facility] [place] [facility] [address] [facility] [id number] [place] [address]- 2269 Jul, [facility] [place] [facility] [address] [id number], [place] [address]- 2222 Jun, [facility] [place] [facility] [address] [id number] [place] [address]- 7522 Jun, [facility] [place] [facility] [address] [id number] [place] [address]- 6506 May, [facility] [place] [facility] [address] [facility] [id number] [place] [address]- 8184 May, [facility] [place] [facility] [address] [id number] [place] [address]- 0018 Apr, [facility] [place] [facility] [address] [id number] [place] [address]- 5581 Apr, [facility] [place] [facility] [address] [id number] [place] [address]- 7751 Mar, [facility] [place] [facility] [address] [id number] [place] [address]- 6268 Feb, [facility] [place] [facility] [address] [id number] [place] [address]- 8170 Nov, [facility] [place] [facility] [address] [id number] [place] [address]- 7619 Oct, [facility] [place] [facility] [address] [facility] [id number] [place] [address]- 5825 Oct, [facility] [place] [facility] [address] [id number] [place] [address]- 6939 Oct, [facility] [place] [facility] [address] [id number] [place] [address]- 7626 Oct, [facility] [place] [facility] [address] [facility] [id number] [place] [address]- 8724 Oct, [facility] [place] [facility] [address] [facility] [id number] [place] [address]- 0821 Sep, [facility] [place] [facility] [address] [id number], [place] [address]- 2495 Sep, [facility] [place] [facility] [address] [id number] [place] [address]- 4231 Jul, [facility] [place] [facility] [address] [id number] [place] [address]- 1784 Jul, [facility] [place] [facility] [address] [id number] [place] [address]- 1017 May, [facility] [place] [facility] [address] [id number], [place] [address]- 5571 06 May, 2011 [facility] [place] [address] [id number] [place] [id number] 05 May, 2011 [facility] [place] [facility] [address] [id number] [place] [address]- 8700 04 May, 2011 [facility] [place] [facility] [address] [id number] [place] [address]- 6625 04 May, 2011 [facility] [place] [facility] [address] [id number], [place] [address]- 6949 May, 2011 [facility] [place] [facility] [address] [id number] [place] [address]- 7304 Apr, [facility] [place] [facility] [address] [id number], [place] [address]- 1615 Apr, [facility] [place] [facility] [address] [id number], [place] [address]- 2918 Apr, [facility] [place] [facility] [address] [id number], [place] [address]- 5038 Mar, [facility] [place] [facility] [address] [id number], [place] [address]- 8136 Mar, [facility] [place] [facility] [address] [facility] [id number], [place] [address]- 4390 Mar, [facility] [place] [facility] [address] [id number], [place] [address]- 4637 Mar, [facility] [place] [facility] [address] [id number], [place] [address]- 5365 Feb, [facility] [place] [facility] [address] [id number] [place] [id number] Feb, [facility] [place] [facility] [address] [id number], [place] [address]- 3295 Feb, [facility] [place] [facility] [address] [id number] [place] [id number] Feb, [facility] [place] [facility] [address] [id number], [place] [address]- 2546 Feb, [facility] [address] [id number], [place] [address]- 9616 Feb, [facility] [address] [id number], [place] [id number] January, [facility] [address] [id number], [place] [address]- 9376 January, [facility] [place] [facility] [address] [id number], [place] [id number] January, [facility] [place] [facility] [address] [id number] [place] [address]- 3156 January, [facility] [place] [facility] [address] [id number], [place] [id number] January, [facility] [place] [facility] [address] [id number], [place] [address]- 6366 January, [facility] [place] [facility] [address] [id number], [place] [address]- 4846 January, [facility] [place] [facility] [address] [id number], [place] [address]- 2766 January, [facility] [place] [facility] [address] [id number], [place] [address]- 8106 Dec, [facility] [place] [facility] [address] [id number], [place] [address]- 1366 Dec, [facility] [place] [facility] [address] [id number], [place] [address]- 1456 Dec, [facility] [place] [facility] [address] [id number], [place] [address]- 4316 Dec, [facility] [place] [facility] [address] [id number], [place] [address]- 4546 Dec, [facility] [address] [id number] [place] [id number] Dec, [facility] [place] [facility] [address] [id number], [place] [address] Nov, [facility] [address] [id number], [place] [address] Nov, [facility] [address] [facility] [place] [id number], [place] [address] Nov, [facility] [address] [id number] [id number] Oct, [facility] [address] [id number][place] [id number] Oct, [facility] [address] [id number], [place] [address] Oct, [facility] [address] [id number] [id number] Sep, [facility] [address] [id number], [place] [address] Sep, [facility] [address] [facility] [id number][place] [id number] Sep, [facility] [address] [facility] [id number][place] [id number] Sep, [facility] [id number], [place] [address] Aug, [facility] [address] [facility] [place] [id number], [place] [address] Aug, [facility] [address] [id number], [place] [address] Aug, [facility] [place] [facility] [address] [facility] [place] [id number], [place] [address] Aug, [facility] [place] [facility] [address] [facility] [place] [id number], [place] [address] Jul, [facility] [place] [facility] [address] [facility] [place] [id number], [place] [address] Jul, [facility] [address] [facility] [place] [id number], [place] [address] 13 May, 2011 [facility] [place] [facility] [address] [id number] [place] [address] 10 Jan, 2011 [facility] [place] [facility] [address] [id number] [place] [address] 20 Dec, 2010 [facility] [place] [facility] [address] [id number] [place] [address] 18 Nov, 2010 [facility] [place] [facility] [address] [id number] [place] [address] Aug, [facility] [place] [facility] [address] [id number] [place] [address] Aug, [facility] [place] [facility] [address] [id number] [place] [address] Aug, [facility] [place] [facility] [address] [id number] [place] [address] Aug, [facility] [place] [facility] [address] [id number] [place] [address] Aug, [facility] [place] [facility] [address] [id number] [place] [address] Aug, [facility] [place] [facility] [address] [id number] [place] [address] 27 Jun, 2010 [facility] [place] [facility] [address] [id number] [place] [address] 26 Jun, 2010 [facility] [place] [facility] [address] [id number] [place] [address] 13 Jun, 2010 [facility] [place] [facility] [address] [id number] [place] [address] 12 Jun, 2010 [facility] [place] [facility] [address] [id number] [place] [address] 12 Jun, 2010 [facility] [facility] [facility] [address] [id number] [place] [address] 14 May, 2010 [facility] [place] [facility] [address] [facility] [place] 2[place] [id number] [place], [place] [id number] 10 May, 2010 IMMUNIZATIONS No Known Immunizations SOCIAL HISTORY Never Assessed REASON FOR VISIT wants x-rays PLAN OF CARE VITAL SIGNS MEDICATIONS Unknown Medications RESULTS Name Result Date Reference Range Xray : Facial bones, 3 view PROCEDURES No Known procedures INSTRUCTIONS MEDICATIONS ADMINISTERED [...] 1996, 2002 Surgical History frankie miller 2002 Surgical History Sinus Surgery 2017 Hospitalization History childbirth, surgeries Hospitalization History [facility] Afib w/ RVR, HTN, COPD 01/24/16 Hospitalization History A Fib February 2016
--- OUTSIDE RECORDS SUMMARY | 2019-01-13 10:05 | XMS REPORT ---
Author Author MONY BROWN [facility] Address [address] [place] [address] Care Team Providers Care Transmitter Operator Name Role Phone BROWNNATALIA ANDREAARDO Unavailable PROBLEMS Type Condition ICD9-CM Code QUZ46-IP Code Onset Dates Condition Status SNOMED Code Problem Enlarged thyroid E01.0 Active 63865005 Problem H/O breast augmentation Z98.82 Active 240561942 Problem COPD exacerbation J44.1 Active 821259254 Problem History of breast augmentation Z98.82 Active 671378699 Problem Decreased hearing of left ear H91.92 Active 392100503 Problem Chronic sinusitis, unspecified location J32.9 Active 43684669 Problem Chronic sinusitis of both maxillary sinuses J32.0 Active [id number] Problem Atelectasis J98.11 Active 16052001 Problem Severe persistent asthma with exacerbation J45.51 Active 490758958 Problem Primary osteoarthritis, left ankle and foot M19.072 Active 44569016 Problem Chronic obstructive pulmonary disease, unspecified J44.9 Active 014934656 Problem Primary osteoarthritis of right foot M19.071 Active 121868179 Problem Right wrist effusion M25.431 Active 785047033 Problem Arthritis of both hips M12.9 Active 05646243 Problem Hyperthyroidism E05.90 Active 85270328 Problem Essential hypertension I10 Active 97033815 Problem Atrial fibrillation, unspecified type I48.91 Active 92508694 Problem Depressive disorder, not elsewhere classified F32.9 Active 64490883 Problem Rosacea L71.9 Active 797109922 ALLERGIES Substance Reaction Event Type Date Status Sulfamethoxazole sores in mouth Drug Allergy Nov, Active Penicillin V Potassium hives Drug Allergy Nov, Active Clindamycin HCl hives Drug Allergy Nov, Active Bactrim DS Unknown Drug Allergy Nov, Active ENCOUNTERS Encounter Location Date Diagnosis [facility] [address] [facility] [address] [id number] [place] [id number] Mar, [facility] [address] [id number][place] [id number] Mar, [facility] [address] [facility] [address] [id number][place] [id number] Mar, Dental examination Z01.[address] [id number], [place] [id number] Feb, [facility] [address] [id number][place] [id number] Feb, [facility] [address] [facility] [address] [id number][place] [id number] Feb, [facility] [address] [id number][place] [id number] Feb, [facility] [address] [id number][place] [id number] January, [facility] [address] [id number] [place] [address] [id number] January, Breast tenderness in female N64.4 ; Atypical chest pain R07.89 and History of breast augmentation Z98.82 [facility] [address] [id number], [place] [id number] Dec, Jaw pain R68.84 [facility] [address] [id number][place] [id number] Dec, [facility] [address] [id number], [place] [id number] Dec, Chronic sinusitis, unspecified location J32.9 ; Swelling of left side of face R22.0 and Decreased hearing of left ear H91.92 [facility] [address] [id number], [place] [id number] Nov, Dental examination Z01.20 [facility] [address] [id number], [place] [id number] Nov, Chronic obstructive pulmonary disease, unspecified J44.9 [facility] [address] [id number], [place] [address] Oct, Chronic obstructive pulmonary disease, unspecified J44.9 [facility] Aviles [facility] [id number][place] [id number] Sep, [facility] [id number][place] [id number] Sep, [facility] Bautista[address] [place] [address] [id number], [place] [id number] Sep, Atelectasis J98.11 and Severe persistent asthma with exacerbation J45.51 [place] [id number] [place] [address] [id number] Sep, [place] [id number] [place] [address] [id number] Sep, Cough R05 ; Shortness of breath R06.02 ; Low oxygen saturation R79.81 ; Wheezing R06.2 ; Decreased breath sounds at right lung base R09.89 ; Fever, unspecified fever cause R50.9 and COPD exacerbation J44.1 [facility] HERNANDEZ [address] [place] [address] [id number], [place] [id number] Aug, Chronic sinusitis, unspecified location J32.9 and Acute mucoid otitis media of left ear H65.112 [place] [id number] [place] [address] [id number] Aug, Medial epicondylitis of left elbow M77.02 ; Chronic sinusitis of both maxillary sinuses J32.0 and History of sinus surgery Z98.890 [address] [place] [address] [id number] Jul, [place] [id number] [place] [address] [id number] Jul, [place] [id number] [place] [address] [id number] Jul, Atrial fibrillation, unspecified type I48.91 ; Enlarged thyroid E01.0 ; Hyperthyroidism E05.90 and Pre-diabetes R73.[address] [place] [address] [id number] Jul, Elevated blood sugar R73.[address] [place] [id number] Jul, Atrial fibrillation, unspecified type I48.91 and Hyperthyroidism E05.90 [facility] [address] [id number] [address] Jul, Atrial fibrillation, unspecified type I48.91 and Hyperthyroidism E05.[address] [place] [address] [id number] Jun, Acute recurrent frontal sinusitis J01.11 [place] [id number] [place] [address] [id number] Jun, [place] [id number] [place] [address] [id number] May, Screening breast examination Z12.31 and H/O breast augmentation Z98.82 [place] [id number] [place] [address] [id number] May, [address] [id number] May, Nasal polyp J33.9 and Acute non-recurrent frontal sinusitis J01.10 [place] [id number] [place] [address] [id number] May, COPD exacerbation J44.1 [place] [id number] [place] [address] [id number] Apr, [place] [id number] [place] [address] [id number] January, Enlarged thyroid E01.0 and COPD exacerbation J44.1 [place] [id number] [place] [address] [id number] January, Chronic obstructive pulmonary disease, unspecified J44.9 [place] [id number] [place] [address] [id number] Dec, [place] [id number] [place] [address] [id number] Dec, [place] [id number] [place] [address] [id number] Dec, Cough R05 ; Shortness of breath R06.02 ; Urinary frequency R35.0 and Chronic obstructive pulmonary disease, unspecified J44.9 [place] [id number] [place] [address] [id number] Nov, Bronchitis J40 and Cough R05 [address] [id number] Aug, Pain of left hand M79.642 ; Atrial fibrillation, unspecified type I48.91 and Screening for hyperlipidemia Z13.[address] [id number] Aug, [address] [id number] Aug, Pain of left foot M79.672 ; Pain in right foot M79.671 ; Pain of left hand M79.642 ; Pain in right hand M79.641 ; Screening for hyperlipidemia Z13.220 and Atrial fibrillation, unspecified type I48.91 [place] [id number] [place] [address] [id number] Jul, Rash R21 ; Arthritis of both hips M12.9 ; Depressive disorder, not elsewhere classified F32.9 ; Atrial fibrillation, unspecified type I48.91 ; Hyperthyroidism E05.90 and Chronic obstructive pulmonary disease, unspecified J44.9 [place] [address] [address] Jun, [facility] [address] [id number]- 2039 Jun, Rosacea L71.[address] [id number] Jun, Rosacea L71.9 and Oral herpes simplex infection B00.2 [place] [id number] [place] [address] [id number] Jun, Rash R21 [address] [id number] Jun, Asthma exacerbation J45.901 [place] [id number] [place] [address] [id number] Apr, [place] [address] [place] [address] [id number] Apr, Acute diffuse otitis externa of right ear H60.311 and Rash R21 [facility] [id number] [place] [phone] Feb, Rash R21 [facility] [id number] [place] [address]67[address]- 5277 Feb, [place] [id number] [place] [address] [id number] January, Hyperthyroidism E05.90 [place] [id number] [place] [address] [id number] January, Atrial fibrillation, unspecified type I48.91 and Hyperthyroidism E05.90 [facility] [address] [place] [address]15 2546 January, [place] [id number] [place] [address] [id number] January, Atrial fibrillation, unspecified type I48.91 [place] [id number] [place] [address] [id number] Dec, Asthma exacerbation J45.[address] [id number] Dec, [place] [id number] [place] [address] [id number] Oct, Acute maxillary sinusitis, recurrence not specified J01.00 and Acute cystitis with hematuria N30.01 [place] [id number] [place] [address] [id number] Oct, Sinusitis J32.9 [place] [id number] [place] [address] [id number] Sep, Chronic obstructive pulmonary disease, unspecified J44.9 ; Depressive disorder, not elsewhere classified F32.9 ; Arthritis of both hips M12.9 and Essential hypertension I10 [facility] [address] [id number], [place] [id number] Sep, [place] [id number] [place] [address] [id number] Sep, [facility] [id number] [place] [address] [id number] Sep, Right hip pain M25.551 [facility] [id number] [place] [address] [id number] Sep, [facility] [id number] [place] [address] [id number] Sep, [facility] [id number] [place] [address] [id number] Sep, Hemoptysis R04.2 ; Pain in right hip M25.551 and Pain in left hip M25.552 [facility] [id number] [place] [address] [id number] Aug, [facility] [id number] [place] [address] [id number] Aug, Sinusitis J32.9 ; Cough R05 and Wheezing R06.[address] [facility] [id number] [place] [address] [id number] May, [facility] [id number] [place] [address] [id number] May, [facility] [id number] [place] [address] [id number] May, [facility] [id number] [place] [address] [id number] Apr, Chronic airway obstruction, not elsewhere classified 496 [facility] [id number] [place] [address] [id number] Apr, [facility] [id number] [place] [address] [id number] Apr, Bronchitis, chronic obstructive, with exacerbation 491.21 [place] [id number] [place] [address] [id number] Mar, [place] [id number] [place] [address] [id number] Mar, Asthma, unspecified, with (acute) exacerbation 493.92 and Rhinitis 472.0 [place] [id number] [place] [address] [id number] Feb, [address] [place] [address] [id number] Feb, [place] [id number] [place] [address] [id number] Feb, Pituitary incidentaloma 227.3 and Abnormal MRI of the head 793.0 [place] [id number] [place] [address] [id number] Feb, [place] [id number] [place] [address] [id number] January, Muscle weakness of lower extremity 728.87 ; Abnormal involuntary movements 781.0 ; Unspecified otitis media 382.9 and Other general symptoms 780.99 [place] [id number] [place] [address] [id number] January, Acute sinusitis, unspecified 461.9 and Muscle weakness of lower extremity 728.87 [place] [id number] [place] [address] [id number] January, Bronchitis 490 and Cough 786.[address] [id number], [place] [id number] Dec, [address] [place] [address] [id number] Dec, [address] [place] [address] [id number] Dec, [facility] [address] [place] [address] 37771- 9934 Dec, [facility] [id number] [place] [address] 28078- 3152 Dec, [facility] [id number] [place] [address] 92032- 3031 Oct, [facility] [id number] [place] [address] 303204- 6502 Oct, [facility] [id number] [place] [address] 72313- 3307 Oct, [facility] [place] [facility] [address] [id number] [place] [address]- 2475 Oct, 2014 [facility] [place] [facility] [address] [facility] [id number] [place] [address]- 4017 Oct, 2014 [facility] [place] [facility] [address] [facility] [id number] [place] [address]- 6017 Oct, 2014 [facility] [place] [facility] [address] [facility] [id number] [place] [address]- 6383 Oct, 2014 [facility] [address] [facility] [id number], [place] [id number] Oct, 2014 [facility] [place] [facility] [address] [facility] [id number] [place] [address]- 0916 Oct, 2014 [facility] [place] [facility] [address] [id number] [place] [address]- 9171 Oct, 2014 [facility] [place] [facility] [address] [id number], [place] [address]- 1281 Oct, 2014 [facility] [address] [id number], [place] [id number] Aug, [facility] [place] [facility] [address]00565100[place], [place] [address]- 9809 Aug, [facility] [id number], [place] [id number] Jul, [facility] [place] [facility] [address]65100[place], [place] [address]- 6844 Jul, [facility] [place] [facility] [address] [facility] [id number], [place] [address]- 1194 Jun, [facility] [address] [facility] [id number], [place] [id number] Jun, [facility] [place] [facility] [address] [facility] [id number], [place] [address]- 2846 Jun, [facility] [address] [facility] [id number], [place] [id number] 10 Jun, 2014 [facility] [place] [facility] [address] [id number], [place] [address]- 0493 Jun, [facility] [address] [facility] [id number], [place] [id number] May, [facility] [place] [facility] [address] [facility] [id number], [place] [address]- 1697 May, [facility] [address] [facility] [id number], [place] [id number] May, [facility] [place] [facility] [address] [facility] [id number], [place] [address]- 7445 May, [facility] [address] [facility] [id number], [place] [id number] May, [facility] [place] [facility] [address] [facility] [id number], [place] [address]- 7667 May, [facility] [place] [facility] [address]00565100[place], [place] [address]- 3244 Mar, [facility] [place] [facility] [address] [facility] [id number], [place] [address]- 1097 Mar, [facility] [address] [facility] [id number], [place] [id number] January, [facility] [place] [facility] [address] [id number], [place] [address]- 0761 January, [facility] [address] [facility] [id number], [place] [id number] Oct, [facility] [place] [facility] [address] [facility] [id number], [place] [address]- 4327 Oct, [facility] [place] [facility] [address] [facility] [id number], [place] [address]- 8552 Jul, [facility] [place] [facility] [address] [facility] [id number], [place] [address]- 1924 Jun, [facility] [place] [facility] [address] [facility] [id number], [place] [address]- 6292 Jun, [facility] [place] [facility] [address] [facility] [id number], [place] [address] 2540 May, [facility] [address] [id number] [place] [address]- 8341 May, [facility] [place] [facility] [address] [id number] [place] [address]- 3066 Apr, [facility] [place] [facility] [address] [facility] [id number] [place] [address]- 6956 Apr, [facility] [place] [facility] [address] [id number] [place] [address]- 0446 Mar, [facility] [address] [id number] [place] [address]- 9477 Feb, [facility] [place] [facility] [address] [id number] [place] [address]- 7583 Nov, [facility] [address] [place] [address]- 5020 Oct, [facility] [place] [facility] [address] [id number] [place] [address]- 4332 Oct, [facility] [address] [id number] [place] [address]- 0686 Oct, [facility] [address] [id number] [place] [address]- 9500 Oct, [facility] [address] [place] [address]- 9545 Oct, [facility] [place] [facility] [address] [id number] [place] [address]- 4078 Sep, [facility] [place] [facility] [address] [id number] [place] [address]- 3545 Sep, [facility] [place] [facility] [address] [facility] [id number] [place] [address]- 2546 Jul, [facility] [place] [facility] [address] [facility] [id number] [place] [address]- 3716 Jul, [facility] [place] [facility] [address] [id number] [place] [address]- 2730 17 May, 2011 [facility] [place] [facility] [address] [id number] [place] [address]- 2546 06 May, 2011 [facility] [address] [id number] [place] [id number] 05 May, 2011 [facility] [place] [facility] [address] [id number] [place] [address]- 2546 04 May, 2011 [facility] [place] [facility] [address] [id number] [place] [address]- 5836 04 May, 2011 [facility] [place] [facility] [address] [id number] [place] [address]- 5740 May, 2011 [facility] [place] [facility] [address] [id number] [place] [address]- 7209 Apr, [facility] [place] [facility] [address] [id number] [place] [address]- 9086 Apr, [facility] [place] [facility] [address] [id number] [place] [address]- 7371 Apr, [facility] [place] [facility] [address] [id number] [place] [address]- 5295 Mar, [facility] [place] [facility] [address] [id number] [place] [address]- 7762 Mar, [facility] [place] [facility] [address] [id number] [place] [address]- 3796 Mar, [facility] [place] [facility] [address] [id number] [place] [address]- 254 Mar, [facility] [place] [facility] [address] [id number] [place] [address]- 4935 Feb, [facility] [place] [facility] [address] [id number] [place] [id number] Feb, [facility] [place] [facility] [address] [id number] [place] [address]- 6056 Feb, [facility] [place] [facility] [address] [id number] [place] 023487220 Feb, [facility] [place] [facility] [address] [id number] [place] [address]- 2546 Feb, [facility] [address] [id number] [place] [address]- 2546 Feb, [facility] [address] [id number] [place] [id number] January, [facility] [address] [id number] [place] [address]- 2546 January, [facility] [place] [facility] [address] [id number] [place] [address]199067[address] January, [facility] [place] [facility] [address] [id number] [place] [address]- 2546 January, [facility] [place] [facility] [address] [id number] [place] [address] January, [facility] [place] [facility] [address] [id number] [place] [address]- 2546 January, [facility] [place] [facility] [address] [id number] [place] [address]- 2546 January, [facility] [place] [facility] [address] [id number] [place] [address]- 2546 January, [facility] [place] [facility] [address] [id number] [place] [address]- 2546 Dec, [facility] [place] [facility] [address] [id number] [place] [address]- 2546 Dec, [facility] [place] [facility] [address] [id number] [place] [address]- 3186 Dec, [facility] [place] [facility] [address] [id number] [place] [address]- 2546 Dec, [facility] [place] [facility] [address] [id number] [place] [address]- 9046 Dec, [facility] [address] [id number][place] [id number] Dec, [facility] [address] [id number], [place] [address]- 2546 Nov, [facility] [address] [facility] [id number], [place] [address]- 2546 Nov, [facility] [address] [id number], [place] [address]- 2546 Nov, [facility] [address] [id number], [place] [id number] Oct, [facility] [address] [id number], [place] [id number] Oct, [facility] [address] [facility] [id number], [place] [address] Oct, [facility] [address] [id number][place] [id number] Sep, [facility] [address] [id number], [place] [address] Sep, [facility] [address] [id number][place] [id number] Sep, [facility] [address] [facility] [id number][place] [id number] Sep, [facility] [id number], [place] [address] Aug, [facility] [address] [facility] [id number], [place] [address] Aug, [facility] [address] [facility] [id number], [place] [address] Aug, [facility] [address] [facility] [id number], [place] [address] Aug, [facility] [address] [facility] [id number], [place] [address] Jul, [facility] [address] [id number] [place] [address] Jul, [facility] [place] [facility] [address] [id number] [place] [address] 13 May, 2011 [facility] [place] [facility] [address] [id number] [place] [address] January, [facility] [place] [facility] [address] [id number] [place] [address] Dec, [facility] [place] [facility] [address] [id number] [place] [address] Nov, [facility] [place] [facility] [address] [id number] [place] [address] Aug, [facility] [place] [facility] [address] [id number] [place] [address] Aug, [facility] [place] [facility] [address] [id number] [place] [address] Aug, [facility] [place] [facility] [address] [id number] [place] [address] Aug, [facility] [place] [facility] [address] [id number] [place] [address] Aug, [facility] [place] [facility] [address] [id number] [place] [address] Aug, [facility] [place] [facility] [address] [id number] [place] [address] Jun, [facility] [place] [facility] [address] [id number] [place] [address] Jun, [facility] [place] [facility] [address] [id number] [place] [address] 13 Jun, 2010 [facility] [place] [facility] [address] [id number] [place] [address] 12 Jun, 2010 [facility] [place] [facility] [address] [id number] [place] [address] Jun, [facility] [address] [facility] [id number] [place] [address] May, [facility] [address] [facility] [id number] [place] [address] 10 May, 2010 IMMUNIZATIONS No Known Immunizations SOCIAL HISTORY Never Assessed REASON FOR VISIT toothache PLAN OF CARE Activity Details Follow Up 1 Week Reason:TE VITAL SIGNS Height 62 in 2017-12-07 Blood pressure systolic 145 mmHg 2017-12-07 Blood pressure diastolic 83 mmHg 2017-12-07 MEDICATIONS Medication Instructions Dosage Frequency Start Date End Date Duration Status DuoNeb 0.5-2.5 (3) MG/3ML Inhalation every4- 6 hrs 3 ml Sep, Not-Taking Metoprolol Succinate ER 100 MG Orally Once a day 1 tablet 24h Active Advair Diskus 500-50 MCG/DOSE INHALE 1 PUFF TWICE DAILY 30 Not- Taking Benadryl Allergy 25 MG Orally every 6 hrs 1 tablet as needed 6h Not-Taking Fluoxetine 20 mg 1 capsule Once a day orally Active Advair Diskus 500-50 MCG/DOSE Inhalation Twice a day 1 puff 12h Oct, Active Fluticasone Propionate 50 MCG/ACT USE ONE SPRAY IN EACH NOSTRIL TWICE DAILY 30 Active Cardizem CD 180 MG Orally Once a day 1 capsule 24h January, Active EPINEPHrine 0.3 mg/0.3 mL 0.3 mg by Intramuscular route 1 time per dayPRNfor anyphylaxis Feb, Not-Taking Fluoxetine HCl 20 MG TAKE 1 CAPSULE ONCE A DAY ORALLY 30 Not- Taking ProAir HFA 108 (90 Base) MCG/ACT INHALE 2 PUFFS NEEDED 4 TIMES A DAY Active Doxycycline Monohydrate 100 mg Orally every 12 hrs 1 capsule 12h Sep, 10 days Not-Taking Albuterol Sulfate (2.5 MG/3ML) 0.083% inhalation 4-6 hours as needed 1 Each by Inhalation route every 6 hours for cough and wheezePRNfor wheezing or cough Sep, Not-Taking Tapazole 5 mg Orally Once a day 4 tablet with food 24h Active Qvar 40 mcg/act Inhalation Twice a day 1 puff 12h Mar, 0 days Active Flonase 50 MCG/ACT Nasally 2 times a day 1 spray in each nostril 12h Active Singulair 10 mg 1 tablet by Oral route 1 time per day for 30 days Jun, Active Sudafed 60 mg Orally every 6 hrs 1 tablet as needed 6h May, Not-Taking Eliquis 5 mg Orally 2 times a day 1 tablet 12h January, Active ZyrTEC 10 mg 1 tablet by Oral route 1 time per day Dec, Active Atrovent HFA 17 MCG/ACT INHALE 2 PUFFS BY MOUTH 4 TIMES DAILY 25 Active RESULTS No Results PROCEDURES Procedure Date Ordered Result Body Site LTD ORAL EVALUATION - PROBLEM FOCUS December 07, 2017 INTRAORL-PERIAPICAL 1 FILM 48045 December 07, 2017 BITEWING - SINGLE FILM December 07, 2017 INSTRUCTIONS MEDICATIONS ADMINISTERED No Known Medications [...]
--- OUTSIDE RECORDS SUMMARY | 2019-01-13 10:06 | XMS REPORT ---
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 Name Role Phone BRITTNEY ROMERO Unavailable PROBLEMS Type Condition ICD9-CM Code [id number] Code Onset Dates Condition Status SNOMED Code Problem Enlarged thyroid E01.0 Active 97664806 Problem H/O breast augmentation Z98.82 Active 905830818 Problem COPD exacerbation J44.1 Active 504484445 Problem History of breast augmentation Z98.82 Active 235882024 Problem Decreased hearing of left ear H91.92 Active 379417150 Problem Chronic sinusitis, unspecified location J32.9 Active 29763035 Problem Chronic sinusitis of both maxillary sinuses J32.0 Active [id number] Problem Atelectasis J98.11 Active 52857792 Problem Severe persistent asthma with exacerbation J45.51 Active 813443423 Problem Primary osteoarthritis, left ankle and foot M19.072 Active 87701087 Problem Chronic obstructive pulmonary disease, unspecified J44.9 Active 659626143 Problem Primary osteoarthritis of right foot M19.071 Active 532250179 Problem Right wrist effusion M25.431 Active 738874256 Problem Arthritis of both hips M12.9 Active 13233081 Problem Hyperthyroidism E05.90 Active 74754197 Problem Essential hypertension I10 Active 10162512 Problem Atrial fibrillation, unspecified type I48.91 Active 40747476 Problem Depressive disorder, not elsewhere classified F32.9 Active 85136007 Problem Rosacea L71.9 Active 018722771 ALLERGIES No Information ENCOUNTERS Encounter Location Date Diagnosis [facility] [address] [id number] [place] [id number] Mar, [facility] [address] [facility] [id number] [place] [id number] Mar, [facility] [address] [id number][place] [address] Mar, Dental examination Z01.20 [facility] [address] [id number][place] [id number] Feb, [facility] [address] [id number], [place] [address] Feb, [facility] [address] [id number], [place] [id number] Feb, [facility] [place] [address] [id number][place] [id number] Feb, [facility] [place] [address] [id number], [place] [id number] January, [facility] [place] [address] [id number], [place] [address] January, Breast tenderness in female N64.4 ; Atypical chest pain R07.89 and History of breast augmentation Z98.82 [facility] [place] [address] [id number], [place] [id number] Dec, Jaw pain R68.84 [facility] [place] [address] [id number], [place] [address] Dec, [facility] [place] [address] [id number], [place] [id number] Dec, Chronic sinusitis, unspecified location J32.9 ; Swelling of left side of face R22.0 and Decreased hearing of left ear H91.92 [facility] [address] [facility] [address] [id number], [place] [id number] Nov, Dental examination Z01.20 [facility] [address] [id number], [place] [address] Nov, Chronic obstructive pulmonary disease, unspecified J44.9 [facility] [place] [address] [id number], [place] [address]283333 Oct, Chronic obstructive pulmonary disease, unspecified J44.9 [facility] [address] [id number][place] [id number] Sep, [facility] [address] [id number], [place] [id number] Sep, [facility] [address] [place], [place] [address] [id number], [place] [address] Sep, Atelectasis J98.11 and Severe persistent asthma with exacerbation J45.[address] [place] [address] [id number] Sep, [place] [id number] [place] [address] [id number] Sep, Cough R05 ; Shortness of breath R06.02 ; Low oxygen saturation R79.81 ; Wheezing R06.2 ; Decreased breath sounds at right lung base R09.89 ; Fever, unspecified fever cause R50.9 and COPD exacerbation J44.1 [facility] [address] [id number], [place] [id number] Aug, Chronic sinusitis, unspecified location J32.9 and Acute mucoid otitis media of left ear H65.112 [place] [id number] [place] [address] [id number] Aug, Medial epicondylitis of left elbow M77.02 ; Chronic sinusitis of both maxillary sinuses J32.0 and History of sinus surgery Z98.890 [address] [place] [address] [id number] Jul, [address] [place] [address] [id number] Jul, [place] [id number] [place] [address] [id number] Jul, Atrial fibrillation, unspecified type I48.91 ; Enlarged thyroid E01.0 ; Hyperthyroidism E05.90 and Pre-diabetes R73.[address] [place] [address] [id number] Jul, Elevated blood sugar R73.9 [address] [place] [address] [id number] Jul, Atrial fibrillation, unspecified type I48.91 and Hyperthyroidism E05.90 [facility] [address] [place] [address]- 7014 Jul, Atrial fibrillation, unspecified type I48.91 and Hyperthyroidism E05.90 [place] [id number] [place] [address] [id number] Jun, Acute recurrent frontal sinusitis J01.11 [place] [id number] [place] [address] [id number] Jun, [place] [id number] [place] [address] [id number] May, Screening breast examination Z12.31 and H/O breast augmentation Z98.82 [place] [id number] [place] [address] [id number] May, [address] [id number] May, Nasal polyp J33.9 and Acute non-recurrent frontal sinusitis J01.10 [place] [id number] [place] [address] [id number] May, COPD exacerbation J44.1 [place] [id number] [place] [address] [id number] Apr, [place] [id number] [place] [address] [id number] January, Enlarged thyroid E01.0 and COPD exacerbation J44.1 [place] [id number] [place] [address] [id number] January, Chronic obstructive pulmonary disease, unspecified J44.9 [place] [id number] [place] [address] [id number] Dec, [place] [id number] [place] [address] [id number] Dec, [place] [id number] [place] [address] [id number] Dec, Cough R05 ; Shortness of breath R06.02 ; Urinary frequency R35.0 and Chronic obstructive pulmonary disease, unspecified J44.9 [place] [id number] [place] [address] [id number] Nov, Bronchitis J40 and Cough R05 [place] [address] [address] Aug, Pain of left hand M79.642 ; Atrial fibrillation, unspecified type I48.91 and Screening for hyperlipidemia Z13.220 [place] [id number] [place] [address] [id number] Aug, [address] [id number] Aug, Pain of left foot M79.672 ; Pain in right foot M79.671 ; Pain of left hand M79.642 ; Pain in right hand M79.641 ; Screening for hyperlipidemia Z13.220 and Atrial fibrillation, unspecified type I48.[address] [id number] Jul, Rash R21 ; Arthritis of both hips M12.9 ; Depressive disorder, not elsewhere classified F32.9 ; Atrial fibrillation, unspecified type I48.91 ; Hyperthyroidism E05.90 and Chronic obstructive pulmonary disease, unspecified J44.9 [facility] [address] [address] Jun, [facility] [address] [id number]- 6165 Jun, Rosacea L71.[address] [id number] Jun, Rosacea L71.9 and Oral herpes simplex infection B00.2 [place] [id number] [place] [address] [id number] Jun, Rash R21 [address] [id number] Jun, Asthma exacerbation J45.[address] [id number] Apr, [address] [id number] Apr, Acute diffuse otitis externa of right ear H60.311 and Rash R21 [facility] [address] [place] [address] Feb, Rash R21 [facility] [id number] [place] [address] 8[address]- 8286 Feb, [facility] [id number] [place] [address] [id number] January, Hyperthyroidism E05.90 [facility] [id number] [place] [address] [id number] January, Atrial fibrillation, unspecified type I48.91 and Hyperthyroidism E05.90 [facility] [id number] [place] [address] 74482- 2546 January, [facility] [address] [id number] January, Atrial fibrillation, unspecified type I48.91 [facility] [id number] [place] [address] [id number] Dec, Asthma exacerbation J45.901 [facility] [id number] [place] [address] [id number] Dec, [facility] [id number] [place] [address] [id number] Oct, Acute maxillary sinusitis, recurrence not specified J01.00 and Acute cystitis with hematuria N30.01 [facility] [id number] [place] [address] [id number] Oct, Sinusitis J32.9 [place] [id number] [place] [address] [id number] Sep, Chronic obstructive pulmonary disease, unspecified J44.9 ; Depressive disorder, not elsewhere classified F32.9 ; Arthritis of both hips M12.9 and Essential hypertension I10 [facility] [address] [id number], [place] [id number] Sep, [facility] [id number] [place] [address] [id number] Sep, [place] [id number] [place] [address] [id number] Sep, Right hip pain M25.551 [place] [id number], [place] [id number] Sep, [facility] [id number], [place] [id number] Sep, [facility] [id number], [place] 393[address]331 Sep, Hemoptysis R04.2 ; Pain in right hip M25.551 and Pain in left hip M25.552 [facility] [id number], [place] [id number] Aug, [facility] [id number], [place] [id number] Aug, Sinusitis J32.9 ; Cough R05 and Wheezing R06.[address] [facility] [address]00565100[place] [address] May, [facility] [id number], [place] [id number] May, [facility] [id number], [place] [id number] May, [facility] [id number], [place] [id number] Apr, Chronic airway obstruction, not elsewhere classified 496 [facility] [id number], [place] [id number] Apr, [place] [id number], [place] [id number] Apr, Bronchitis, chronic obstructive, with exacerbation 491.21 [facility] [id number], [place] [id number] Mar, [facility] [id number], [place] [id number] Mar, Asthma, unspecified, with (acute) exacerbation 493.92 and Rhinitis 472.0 [facility] [id number], [place] [id number] Feb, [place] [id number], [place] [id number] Feb, [facility] [place]00565100[place] [address] Feb, Pituitary incidentaloma 227.3 and Abnormal MRI of the head 793.0 [address] [place] [address] [id number] Feb, [place] [id number] [place] [address] [id number] January, Muscle weakness of lower extremity 728.87 ; Abnormal involuntary movements 781.0 ; Unspecified otitis media 382.9 and Other general symptoms 780.[address] [place] [address] [id number] January, Acute sinusitis, unspecified 461.9 and Muscle weakness of lower extremity 728.87 [place] [id number] [place] [address] [id number] January, Bronchitis 490 and Cough 786.2 [address]00565100[place], [place] [id number] Dec, [address] [place] [address] [id number] Dec, [address] [place] [address] [id number] Dec, [facility] [id number] [place] [address] [id number] 1392 Dec, [facility] [id number] [place] [address] [id number]- 2754 Dec, [facility] [id number] [place] [address] [id number]- 4492 Oct, [facility] [id number] [place] [address] [id number]- 2573 Oct, [facility] [address] [id number]- 5600 Oct, [facility] [id number] [place] [address] [id number]- 5183 Oct, [facility] [id number] [place] [address] 24793- 8306 Oct, 2014 [facility] [place] [facility] [address] [facility] [id number] [address]- 2048 Oct, 2014 [facility] [place] [facility] [address] [place] [address] [id number], [place] [address] 1926 Oct, 2014 [facility] [address] [facility] [id number], [place] [id number] Oct, 2014 [facility] [place] [facility] [address] [facility] [id number] [place] [address] 84427- 1975 Oct, 2014 [facility] [place] [facility] [address] [place] [address] 59976- 3980 Oct, 2014 [facility] [place] [facility] [address]00565100[place], [place] [address]- 5033 Oct, 2014 [facility] [place] [id number], [place] [id number] Aug, [facility] [place] [facility] [address]00565100[place], [place] [address]- 8434 Aug, [facility] [place] [id number], [place] [id number] Jul, [facility] [place] [facility] [address]00565100[place], [place] [address]- 5806 Jul, [facility] [place] [facility] [address]00565100[place], [place] [address]- 0726 Jun, [facility] [place] [address] [facility] [id number], [place] [id number] 15 Jun, 2014 [facility] [place] [facility] [address] [facility] [id number], [place] [address]- 1576 14 Jun, 2014 [facility] [place] [address] [place] [id number], [place] [id number] Jun, [facility] [place] [facility] [address] [facility] [id number] [address]- 2546 Jun, [facility] [place] [id number], [place] [id number] May, [facility] [place] [facility] [address] [id number] [place] [address]- 8086 May, [facility] [place] [address] [facility] [id number] [place] [id number] May, [facility] [place] [facility] [address] [id number] [place] [address] 2546 May, [facility] [place] [address] [facility] [id number] [place] [id number] May, [facility] [place] [facility] [address] [id number] [place] [address] 2546 May, [facility] [place] [facility] [address] [facility] [id number] [place] [address]- 7716 Mar, [facility] [place] [facility] [address] [facility] [id number] [place] [address]- 6426 Mar, [facility] [place] [address] [facility] [id number] [place] 03447[address] January, [facility] [place] [facility] [address] [id number] [place] [address]- 9165 January, [facility] [place] [address] [facility] [id number] [place] [id number] Oct, [facility] [place] [facility] [address] [facility] [id number] [place] [address]- 3236 Oct, [facility] [place] [facility] [address] [facility] [id number] [place] [address]- 5513 Jul, [facility] [place] [facility] [address] [id number], [place] [address]- 5953 Jun, [facility] [place] [facility] [address] [id number] [place] [address]- 2799 Jun, [facility] [place] [facility] [address] [id number] [place] [address]- 4386 May, [facility] [place] [facility] [address] [facility] [id number] [place] [address]- 2358 May, [facility] [place] [facility] [address] [id number] [place] [address]- 9503 Apr, [facility] [place] [facility] [address] [id number] [place] [address]- 6972 Apr, [facility] [place] [facility] [address] [id number] [place] [address]- 0134 Mar, [facility] [place] [facility] [address] [id number] [place] [address]- 9531 Feb, [facility] [place] [facility] [address] [id number] [place] [address]- 4173 Nov, [facility] [place] [facility] [address] [id number] [place] [address]- 2365 Oct, [facility] [place] [facility] [address] [facility] [id number] [place] [address]- 0247 Oct, [facility] [place] [facility] [address] [id number] [place] [address]- 2196 Oct, [facility] [place] [facility] [address] [id number] [place] [address]- 6017 Oct, [facility] [place] [facility] [address] [facility] [id number] [place] [address]- 2791 Oct, [facility] [place] [facility] [address] [facility] [id number] [place] [address]- 3629 Sep, [facility] [place] [facility] [address] [id number], [place] [address]- 4187 Sep, [facility] [place] [facility] [address] [id number] [place] [address]- 1351 Jul, [facility] [place] [facility] [address] [id number] [place] [address]- 3761 Jul, [facility] [place] [facility] [address] [id number] [place] [address]- 2309 May, [facility] [place] [facility] [address] [id number], [place] [address]- 3536 06 May, 2011 [facility] [place] [address] [id number] [place] 756126196 05 May, 2011 [facility] [place] [facility] [address] [id number] [place] [address]- 0184 04 May, 2011 [facility] [place] [facility] [address] [id number] [place] [address]- 8014 04 May, 2011 [facility] [place] [facility] [address] [id number], [place] [address]- 4204 May, 2011 [facility] [place] [facility] [address] [id number] [place] [address]- 9556 Apr, [facility] [place] [facility] [address] [id number], [place] [address]- 7524 Apr, [facility] [place] [facility] [address] [id number], [place] [address]- 1444 Apr, [facility] [place] [facility] [address] [id number], [place] [address]- 3935 Mar, [facility] [place] [facility] [address] [id number], [place] [address]- 4485 Mar, [facility] [place] [facility] [address] [facility] [id number], [place] [address]- 4343 Mar, [facility] [place] [facility] [address] [id number], [place] [address]- 7578 Mar, [facility] [place] [facility] [address] [id number], [place] [address]- 6646 Feb, [facility] [place] [facility] [address] [id number] [place] [id number] Feb, [facility] [place] [facility] [address] [id number] [address]- 2226 Feb, [facility] [place] [facility] [address] [id number] [place] 8[place]246[address] Feb, [facility] [place] [facility] [address] [id number], [place] [address]- 2546 Feb, [facility] [address] [id number], [place] [address]- 6986 Feb, [facility] [address] [id number][place] [id number] January, [facility] [address] [id number], [place] [address]- 5886 January, [facility] [place] [facility] [address] [id number], [place] [address]311[address] January, [facility] [place] [facility] [address] [id number] [place] [address]- 6876 January, [facility] [place] [facility] [address] [id number] [id number] January, [facility] [place] [facility] [address] [id number], [place] [address]- 5676 January, [facility] [place] [facility] [address] [id number], [place] [address]- 2686 January, [facility] [place] [facility] [address] [id number], [place] [address]- 0696 January, [facility] [place] [facility] [address] [id number], [place] [address]- 8846 Dec, [facility] [place] [facility] [address] [id number], [place] [address]- 5486 Dec, [facility] [place] [facility] [address] [id number], [place] [address]- 7616 Dec, [facility] [place] [facility] [address] [id number], [place] [address]- 6326 Dec, [facility] [place] [facility] [address] [id number][place] [address]- 1196 Dec, [facility] [address] [id number] [place] [id number] Dec, [facility] [place] [facility] [address] [id number], [place] [address]- 8831 Nov, [facility] [address] [id number], [place] [address]- 0[address] Nov, [facility] [address] [facility] [id number], [place] [address] Nov, [facility] [address] [id number][place] [id number] Oct, [facility] [address] [id number][place] [id number] Oct, [facility] [address] [id number], [place] [address] Oct, [facility] [address] [id number] [id number] Sep, [facility] [address] [id number], [place] [address] Sep, [facility] [address] [facility] [id number][place] [id number] Sep, [facility] [address] [facility] [id number][place] [id number] Sep, [facility] [id number], [place] [address] Aug, [facility] [address] [facility] [id number], [place] [address] Aug, [facility] [address] [id number], [place] [address] Aug, [facility] [place] [facility] [address] [facility] [id number], [place] [address] Aug, [facility] [place] [facility] [address] [facility] [id number], [place] [address] Jul, [facility] [place] [facility] [address] [facility] [id number], [place] [address] Jul, [facility] [address] [facility] [id number], [place] [address] 13 May, 2011 [facility] [place] [facility] [address] [id number] [place] [address] 10 Jan, 2011 [facility] [place] [facility] [address] [id number] [place] [address] 20 Dec, 2010 [facility] [place] [facility] [address] [id number] [place] [address] 18 Nov, 2010 [facility] [place] [facility] [address] [id number] [place] [address] Aug, [facility] [place] [facility] [address] [id number] [place] [address] Aug, [facility] [place] [facility] [address] [id number] [place] [address] Aug, [facility] [place] [facility] [address] [id number] [place] [address] Aug, [facility] [place] [facility] [address] [id number] [place] [address] Aug, [facility] [place] [facility] [address] [id number] [place] [address] Aug, [facility] [place] [facility] [address] [id number] [place] [address] 27 Jun, 2010 [facility] [place] [facility] [address] [id number] [place] [address] 26 Jun, 2010 [facility] [place] [facility] [address] [id number] [place] [address] 13 Jun, 2010 [facility] [place] [facility] [address] [id number] [place] [address] 12 Jun, 2010 [facility] [place] [facility] [address] [id number] [place] [address] 12 Jun, 2010 [facility] [place] [facility] [address] [id number] [place] [address] 14 May, 2010 [facility] [place] [facility] [address] [facility] [id number] [place] [id number] 10 May, 2010 IMMUNIZATIONS No Known Immunizations SOCIAL HISTORY Never Assessed REASON FOR VISIT med refill PLAN OF CARE VITAL SIGNS MEDICATIONS Medication Instructions Dosage Frequency Start Date End Date Duration Status Qvar 40 mcg/act Inhalation Twice a day 1 puff 12h Mar, 0 days Active RESULTS No Results PROCEDURES [...]
--- OUTSIDE RECORDS SUMMARY | 2019-01-13 10:06 | XMS REPORT ---
Author Author NILAM DOVER [facility] Address [address] [place] [address] Care Team Providers Care Engineering Writer Name Role Phone NILAM DOVER Unavailable PROBLEMS Type Condition ICD9-CM Code IIS15-AM Code Onset Dates Condition Status SNOMED Code Problem Rosacea L71.9 Active 879065080 Problem Enlarged thyroid E01.0 Active 36050544 Problem COPD exacerbation J44.1 Active 764212266 Problem Decreased hearing of left ear H91.92 Active 981804165 Problem Severe persistent asthma with exacerbation J45.51 Active 270407496 Problem Chronic sinusitis of both maxillary sinuses J32.0 Active [id number] Problem H/O breast augmentation Z98.82 Active 868684440 Problem Atelectasis J98.11 Active 20429838 Problem Chronic sinusitis, unspecified location J32.9 Active 08174405 Problem Right wrist effusion M25.431 Active 212300716 Problem Primary osteoarthritis, left ankle and foot M19.072 Active 93841380 Problem Primary osteoarthritis of right foot M19.071 Active 959738481 Problem Depressive disorder, not elsewhere classified F32.9 Active 68412484 Problem Arthritis of both hips M12.9 Active 54274566 Problem Chronic obstructive pulmonary disease, unspecified J44.9 Active 861870294 Problem Hyperthyroidism E05.90 Active 05452699 Problem Essential hypertension I10 Active 08621287 Problem Atrial fibrillation, unspecified type I48.91 Active 97530856 ALLERGIES Substance Reaction Event Type Date Status Sulfamethoxazole sores in mouth Drug Allergy Jun, Active Penicillin V Potassium hives Drug Allergy Jun, Active Clindamycin HCl hives Drug Allergy Jun, Active Bactrim DS Unknown Drug Allergy Jun, Active ENCOUNTERS Encounter Location Date Diagnosis [facility] [address] [facility] [id number] [place] [id number] Dec, Jaw pain R68.84 [facility] [id number] [id number] Dec, [address] [place] [address] [id number] Dec, Chronic sinusitis, unspecified location J32.9 ; Swelling of left side of face R22.0 and Decreased hearing of left ear H91.92 [facility] [address] [id number] [place] [id number] Nov, Dental examination Z01.20 [address] [place] [address] [id number] Nov, Chronic obstructive pulmonary disease, unspecified J44.9 [place] [id number] [place] [address] [id number] Oct, Chronic obstructive pulmonary disease, unspecified J44.9 [facility] [address] [id number] [place] [id number] Sep, [facility] [address] [place] [address] [id number] Sep, [address] [place] [address] [id number] Sep, Atelectasis J98.11 and Severe persistent asthma with exacerbation J45.[address] [place] [address] [id number] Sep, [address] [place] [address] [id number] Sep, Cough R05 ; Shortness of breath R06.02 ; Low oxygen saturation R79.81 ; Wheezing R06.2 ; Decreased breath sounds at right lung base R09.89 ; Fever, unspecified fever cause R50.9 and COPD exacerbation J44.[id number] [place] [address] [id number] Aug, Chronic sinusitis, unspecified location J32.9 and Acute mucoid otitis media of left ear H65.[address] [place] [address] [id number] Aug, Medial epicondylitis of left elbow M77.02 ; Chronic sinusitis of both maxillary sinuses J32.0 and History of sinus surgery Z98.890 [address] [place] [address] [id number] Jul, [address] [id number] Jul, [place] [id number] [place] [address] [id number] Jul, Atrial fibrillation, unspecified type I48.91 ; Enlarged thyroid E01.0 ; Hyperthyroidism E05.90 and Pre-diabetes R73.03 [place] [id number] [place] [address] [id number] Jul, Elevated blood sugar R73.9 [place] [id number] [place] [address] [id number] Jul, Atrial fibrillation, unspecified type I48.91 and Hyperthyroidism E05.90 [facility] [id number] [place] [address] [id number]- 2420 Jul, Atrial fibrillation, unspecified type I48.91 and Hyperthyroidism E05.90 [place] [id number] [place] [address] [id number] Jun, Acute recurrent frontal sinusitis J01.11 [place] [id number] [place] [address] [id number] Jun, [place] [id number] [place] [address] [id number] May, Screening breast examination Z12.31 and H/O breast augmentation Z98.82 [place] [id number] [place] [address] [id number] May, [place] [id number] [place] [address] [id number] May, Nasal polyp J33.9 and Acute non-recurrent frontal sinusitis J01.10 [place] [id number] [place] [address] [id number] May, COPD exacerbation J44.[address] [id number] Apr, [address] [place] [address] [id number] January, Enlarged thyroid E01.0 and COPD exacerbation J44.1 [place] [id number] [place] [address] [id number] January, Chronic obstructive pulmonary disease, unspecified J44.9 [place] [id number] [place] [address] [id number] Dec, [address] [id number] Dec, [place] [id number] [place] [address] [id number] Dec, Cough R05 ; Shortness of breath R06.02 ; Urinary frequency R35.0 and Chronic obstructive pulmonary disease, unspecified J44.9 [place] [id number] [place] [address] [id number] Nov, Bronchitis J40 and Cough R05 [place] [id number] [place] [address] [id number] Aug, Pain of left hand M79.642 ; Atrial fibrillation, unspecified type I48.91 and Screening for hyperlipidemia Z13.220 [place] [address] [place] [address] [id number] Aug, [place] [address] [place] [address] [id number] Aug, Pain of left foot M79.672 ; Pain in right foot M79.671 ; Pain of left hand M79.642 ; Pain in right hand M79.641 ; Screening for hyperlipidemia Z13.220 and Atrial fibrillation, unspecified type I48.91 [place] [address] [place] [address] [id number] Jul, Rash R21 ; Arthritis of both hips M12.9 ; Depressive disorder, not elsewhere classified F32.9 ; Atrial fibrillation, unspecified type I48.91 ; Hyperthyroidism E05.90 and Chronic obstructive pulmonary disease, unspecified J44.9 [facility] [id number] [place] [address] [id number] [phone] Jun, [facility] [id number] [place] [address] [phone]- [phone] Jun, Rosacea L71.9 [facility] [address] [id number] Jun, Rosacea L71.9 and Oral herpes simplex infection B00.2 [facility] [id number] [place] [address] [id number] Jun, Rash R21 [facility] [address] [id number] Jun, Asthma exacerbation J45.901 [place] [id number] [place] [address] [id number] Apr, [facility] [id number] [place] [address] [id number] Apr, Acute diffuse otitis externa of right ear H60.311 and Rash R21 [facility] [id number] [place] [address] [phone] Feb, Rash R21 [facility] [id number] [place] [address] [id number] Feb, [place] [id number] [place] [address] [id number] January, Hyperthyroidism E05.90 [place] [address] [place] [address] [id number] January, Atrial fibrillation, unspecified type I48.91 and Hyperthyroidism E05.90 [facility] [id number] [place] [address] [id number] January, [facility] [id number] [place] [address] [id number] January, Atrial fibrillation, unspecified type I48.91 [facility] [id number] [place] [address] [id number] Dec, Asthma exacerbation J45.901 [facility] [id number] [place] [address] [id number] Dec, [facility] [id number] [place] [address] [id number] Oct, Acute maxillary sinusitis, recurrence not specified J01.00 and Acute cystitis with hematuria N30.01 [facility] [id number] [place] [address] [id number] Oct, Sinusitis J32.9 [facility] [id number] [place] [address] [id number] Sep, Chronic obstructive pulmonary disease, unspecified J44.9 ; Depressive disorder, not elsewhere classified F32.9 ; Arthritis of both hips M12.9 and Essential hypertension I10 [place] [id number] [id number] Sep, [address] [place] [address] [id number] Sep, [place] [address] [place] [address] [id number] Sep, Right hip pain M25.551 [facility] [id number] [place] [address] [id number] Sep, [place] [address] [place] [address] [id number] Sep, [place] [address] [place] [address] [id number] Sep, Hemoptysis R04.2 ; Pain in right hip M25.551 and Pain in left hip M25.552 [place] [address] [place] [address] [id number] Aug, [place] [address] [place] [address] [id number] Aug, Sinusitis J32.9 ; Cough R05 and Wheezing R06.2 [facility] [id number] [place] [address] [id number] May, [facility] [id number] [id number] May, [address] [place] [address] [id number] May, [address] [id number] Apr, Chronic airway obstruction, not elsewhere classified 496 [address] [place] [address] [id number] Apr, [address] [place] [address] [id number] Apr, Bronchitis, chronic obstructive, with exacerbation 491.21 [place] [address] [place] [address] [id number] Mar, [place] [address] [place] [address] [id number] Mar, Asthma, unspecified, with (acute) exacerbation 493.92 and Rhinitis 472.0 [place] [address] [place] [address] [id number] Feb, [address] [place] [address] [id number] Feb, [place] [address] [place] [address] [id number] Feb, Pituitary incidentaloma 227.3 and Abnormal MRI of the head 793.0 [address] [place] [address] [id number] Feb, [address] [place] [address] [id number] January, Muscle weakness of lower extremity 728.87 ; Abnormal involuntary movements 781.0 ; Unspecified otitis media 382.9 and Other general symptoms 780.99 [address] [id number] January, Acute sinusitis, unspecified 461.9 and Muscle weakness of lower extremity 728.[address] [place] [address] [id number] January, Bronchitis 490 and Cough 786.2 [facility] [address] [facility] [id number] [place] [id number] Dec, [address] [id number] [id number] Dec, [address] [id number] Dec, [facility] [address] [id number] [place] [address] 14 Dec, 2014 [facility] [place] [facility] [address] [id number] [place] [address]- 3535 Dec, [facility] [place] [facility] [address] [id number] [place] [address]- 4398 Oct, 2014 [facility] [place] [facility] [address] [id number] [place] [address]- 0709 Oct, 2014 [facility] [place] [facility] [address] [id number] [place] [address]- 1352 Oct, 2014 [facility] [place] [facility] [address] [id number] [place] [address]- 9872 Oct, 2014 [facility] [place] [facility] [address] [facility] [id number] [place] [address]- 0105 Oct, 2014 [facility] [address] [id number][place] [address]- 1079 Oct, [facility] [address] [facility] [id number] [place] [address]- 3772 Oct, [facility] [address] [facility] [id number][place] [id number] Oct, [facility] [place] [facility] [address] [facility] [id number], [place] [address]- 9936 Oct, [facility] [place] [facility] [address] [id number][place] [address]- 1542 Oct, [facility] [place] [facility] [address] [facility] [id number], [place] [address]- 6351 Oct, [facility] [address] [facility] [id number][place] [id number] Aug, [facility] [place] [facility] [address] [facility] [id number][place] [address]- 8790 Aug, [facility] [address] [id number][place] [id number] Jul, [facility] [place] [facility] [address] [facility] [id number], [place] [address]- 9177 Jul, [facility] [place] [facility] [address] [facility] [id number], [place] [address]- 4666 Jun, [facility] [address] [facility] [id number][place] [id number] Jun, [facility] [place] [facility] [address] [facility] [id number], [place] [address]- 3338 Jun, [facility] [address] [facility] [id number], [place] [id number] Jun, [facility] [place] [facility] [address] [facility] [id number], [place] [address]- 9158 Jun, [facility] [address] [facility] [id number], [place] [id number] May, [facility] [place] [facility] [address] [id number], [place] [address]- 5138 May, [facility] [address] [facility] [id number][place] [id number] May, [facility] [place] [facility] [address] [id number], [place] [address]- 0796 May, [facility] [address] [facility] [id number][place] [id number] May, [facility] [place] [facility] [address] [facility] [id number], [place] [address]- 4331 May, [facility] [place] [facility] [address] [facility] [id number], [place] [address]- 8242 Mar, [facility] [place] [facility] [address] [facility] [id number], [place] [address]- 8847 Mar, [facility] [address] [facility] [id number], [place] [id number] January, [facility] [place] [facility] [address] [facility] [id number][place] [address]- 0134 January, [facility] [address] [id number] [place] [id number] Oct, [facility] [address] [facility] [id number], [place] [address]- 3582 Oct, [facility] [address] [facility] [id number] [place] [address]- 6624 Jul, [facility] [place] [facility] [address] [id number], [place] [address]- 5311 Jun, [facility] [place] [facility] [address] [id number] [place] [address]- 3799 Jun, [facility] [place] [facility] [address] [facility] [id number], [place] [address]- 6840 May, [facility] [place] [facility] [address] [facility] [id number] [place] [address]- 1508 May, [facility] [place] [facility] [address] [id number], [place] [address]- 8019 Apr, [facility] [place] [facility] [address] [facility] [id number] [place] [address]- 8204 Apr, [facility] [place] [facility] [address] [id number], [place] [address]- 2307 Mar, [facility] [place] [facility] [address] [id number], [place] [address]- 6125 Feb, [facility] [place] [facility] [address] [id number], [place] [address]- 0134 Nov, [facility] [place] [facility] [address] [id number] [place] [address]- 6813 Oct, [facility] [place] [facility] [address] [facility] [id number], [place] [address]- 1344 Oct, [facility] [place] [facility] [address] [facility] [id number], [place] [address]- 6970 Oct, [facility] [place] [facility] [address] [id number] [place] [address]- 2546 Oct, [facility] [address] [id number] [place] [address]- 7816 Oct, [facility] [address] [id number] [place] [address]- 2546 Sep, [facility] [address] [id number] [place] [address]- 2546 Sep, [facility] [address] [id number] [place] [address]- 2546 Jul, [facility] [address] [id number] [place] [address]- 0446 Jul, [facility] [address] [id number] [place] [address]- 2546 May, [facility] [address] [id number] [place] [address]- 2546 May, [facility] [address] [id number] [place] [id number] 05 May, 2012 [facility] [address] [id number] [place] [address]- 3436 May, [facility] [address] [id number] [place] [address]- 7426 04 May, 2012 [facility] [address] [id number] [place] [address]- 2546 May, [facility] [address] [id number] [place] [address]- 2546 Apr, [facility] [address] [id number] [place] [address]- 5666 Apr, [facility] [place] [facility] [address] [id number] [place] [address]- 2546 Apr, [facility] [address] [id number] [place] [address]- 2546 Mar, [facility] [place] [facility] [address] [id number] [place] [address]- 2546 Mar, [facility] [address] [id number] [place] [address]- 2546 Mar, [facility] [address] [id number] [place] [address]- 2546 Mar, [facility] [address] [id number] [place] [address]- 2546 Feb, [facility] [address] [id number][place] [id number] Feb, [facility] [address] [id number] [place] [address]- 2546 Feb, [facility] [address] [id number], [place] 5863699[address] Feb, [facility] [address] [id number], [place] [address]- 2546 Feb, [facility] [address] [id number], [place] [address]- 2546 Feb, [facility] [address] [id number], [place] [id number] January, [facility] [address] [id number], [place] [address]- 2546 January, [facility] [place] [facility] [address] [id number], [place] 55[address]256[address] January, [facility] [address] [id number], [place] [address]- 2546 January, [facility] [place] [facility] [address] [id number], [place] 9[address]6768[address] January, [facility] [place] [facility] [address] [id number] [place] [address]- 2546 January, [facility] [address] [id number], [place] [address]- 2546 January, [facility] [address] [id number] [place] [address]- 2546 January, [facility] [address] [id number] [place] [address]- 6856 Dec, [facility] [address] [id number] [place] [address]- 1816 Dec, [facility] [place] [facility] [address] [id number] [place] [address]- 3276 Dec, [facility] [address] [id number] [place] [address]- 2116 Dec, [facility] [place] [facility] [address] [id number] [place] [address]- 8426 Dec, [facility] [address] [id number], [place] [address]1987 Dec, [facility] [address] [id number], [place] [address]- 2546 Nov, [facility] [address] [id number], [place] [address]- 4776 Nov, [facility] [address] [id number] [place] [address]- 2546 Nov, [facility] [address]005[address] [address] Oct, [facility] [address], [place] [address] Oct, [facility] [place] [facility] [address] [id number], [place] [address]- 2546 Oct, [facility] [address] [id number], [place] 980484062 Sep, [facility] [place] [facility] [address] [id number] [place] [address]- 2546 Sep, [facility] [address] [id number], [place] 64[address] Sep, [facility] [address] [id number] [place] [id number] 18 Sep, 2011 [facility] [address] [id number] [place] [address]- 2900 Aug, [facility] [address] [id number] [place] [address]606 Aug, [facility] [address] [id number] [place] [address]- 3090 Aug, [facility] [address] [id number] [place] [address] Aug, [facility] [address] [id number] [place] [address] Jul, [facility] [address] [id number] [place] [address] Jul, [facility] [address] [id number] [place] [address] May, [facility] [address] [id number] [place] [address] January, [facility] [address] [id number] [place] [address] Dec, [facility] [address] [id number] [place] [address] Nov, [facility] [address] [id number] [place] [address] Aug, [facility] [address] [id number] [place] Aug, [facility] [address] [id number] [place] [address] Aug, [facility] [address] [id number] [place] [address] Aug, [facility] [address] [id number] [place] [address] Aug, [facility] [address] [id number] [address] Aug, [facility] [id number] Jun, [facility] [id number] [address] Jun, [facility] [id number] [address] Jun, [facility] [id number] [address] Jun, [facility] [id number] [address] Jun, [facility] [id number] [place] [address] May, [facility] [address] [id number] [address] May, IMMUNIZATIONS No Known Immunizations SOCIAL HISTORY Never Assessed REASON FOR VISIT Sinus c/o, congestion 2 days ago, having ESS on 07/20/17 Zay [facility] [employer] OF CARE Activity Details Follow Up prn Reason: VITAL SIGNS Height 62 in 2017-07-06 Weight 201.4 lbs 2017-07-06 Temperature 96.8 degrees Fahrenheit 2017-07-06 Heart Rate 64 bpm 2017-07-06 Respiratory Rate 20 2017-07-06 Oximetry 93 % 2017-07-06 BMI 36.83 kg/m2 2017-07-06 Blood pressure systolic 122 mmHg 2017-07-06 Blood pressure diastolic 72 mmHg 2017-07-06 MEDICATIONS Medication Instructions Dosage Frequency Start Date End Date Duration Status Cardizem CD 180 MG Orally Once a day 1 capsule 24h January, Active Metoprolol Succinate ER 100 MG Orally Once a day 1 tablet 24h Active Benadryl Allergy 25 MG Orally every 6 hrs 1 tablet as needed 6h Active Eliquis 5 mg Orally 2 times a day 1 tablet 12h January, Active Tapazole 5 mg Orally Once a day 4 tablet with food 24h Active Celecoxib 200 mg Orally Once a day 1 capsule 24h 30 Active ProAir HFA 108 (90 Base) MCG/ACT INHALE 2 PUFFS NEEDED 4 TIMES A DAY 25 Active Atrovent HFA 17 MCG/ACT Inhalation Four times a day 2 puffs 6h Active EPINEPHrine 0.3 mg/0.3 mL 0.3 mg by Intramuscular route 1 time per dayPRNfor anyphylaxis Feb, Active Advair Diskus 500-50 MCG/DOSE Inhalation Twice a day 1 puff 12h 24 Oct, 2013 Active Singulair 10 mg 1 tablet by Oral route 1 time per day for 30 days Jun, Active ZyrTEC 10 mg 1 tablet by Oral route 1 time per day Dec, Active Fluoxetine 20 mg 1 capsule Once a day orally Active Levaquin 750 MG Orally Once a day 1 capsule 24h Jun, Jun, 10 days Active Albuterol Sulfate 2.5 mg /3 mL (0.083 %) 1 Each by Inhalation route every 6 hours for cough and wheezePRNfor wheezing or cough Sep, Active Flonase 50 MCG/ACT Nasally 2 times a day 1 spray in each nostril 12h May Active Sudafed 60 mg Orally every 6 hrs 1 tablet as needed 6h 06 May, 2017 Active RESULTS No Results PROCEDURES Procedure Date Ordered Result Body Site MEASURE BLOOD OXYGEN LEVEL Jul 06, 2017 INSTRUCTIONS MEDICATIONS ADMINISTERED No Known Medications [...]
--- OUTSIDE RECORDS SUMMARY | 2019-01-13 10:07 | XMS REPORT ---
Author Author BRITTNEY ROMERO Organization [facility] Address [address] [place] [address] Care Team Providers Care Restaurant Worker Name Role Phone BRITTNEY ROMERO Unavailable PROBLEMS Type Condition ICD9-CM Code XMV84-WV Code Onset Dates Condition Status SNOMED Code Problem Enlarged thyroid E01.0 Active 72141148 Problem H/O breast augmentation Z98.82 Active 841973693 Problem COPD exacerbation J44.1 Active 705945992 Problem History of breast augmentation Z98.82 Active 736922033 Problem Decreased hearing of left ear H91.92 Active 841399751 Problem Chronic sinusitis, unspecified location J32.9 Active 34330793 Problem Chronic sinusitis of both maxillary sinuses J32.0 Active [id number] Problem Atelectasis J98.11 Active 75035577 Problem Severe persistent asthma with exacerbation J45.51 Active 666333622 Problem Primary osteoarthritis, left ankle and foot M19.072 Active 79198609 Problem Chronic obstructive pulmonary disease, unspecified J44.9 Active 713877271 Problem Primary osteoarthritis of right foot M19.071 Active 995658650 Problem Right wrist effusion M25.431 Active 533956299 Problem Arthritis of both hips M12.9 Active 94308562 Problem Hyperthyroidism E05.90 Active 83470844 Problem Essential hypertension I10 Active 05196184 Problem Atrial fibrillation, unspecified type I48.91 Active 25317275 Problem Depressive disorder, not elsewhere classified F32.9 Active 94636699 Problem Rosacea L71.9 Active 640801759 ALLERGIES No Information ENCOUNTERS Encounter Location Date Diagnosis [facility] [address] [id number] [place] [id number] Mar, [facility] [address] [facility] [place] [id number] [place] [id number] Mar, [facility] [address] [id number] [place] [id number] Mar, Dental examination Z01.20 [facility] [address] [id number] [place] [id number] Feb, [facility] [address] [id number] [place] [id number] Feb, [facility] [address] [id number] [place] [id number] Feb, [facility] [place] [address] [id number] [place] [id number] Feb, [facility] [place] [address] [id number] [place] [id number] January, [facility] [place] [address] [id number] [place] [id number] January, Breast tenderness in female N64.4 ; Atypical chest pain R07.89 and History of breast augmentation Z98.82 [facility] [place] [address] [id number] [place] [id number] Dec, Jaw pain R68.84 [facility] [place] [address] [id number] [place] [id number] Dec, [facility] [place] [address] [id number] [place] 4804439[address] Dec, Chronic sinusitis, unspecified location J32.9 ; Swelling of left side of face R22.0 and Decreased hearing of left ear H91.92 [facility] [address] [facility] [address] [id number] [place] [id number] Nov, Dental examination Z01.20 [facility] [address] [id number] [place] [id number] Nov, Chronic obstructive pulmonary disease, unspecified J44.9 [facility] [place] [address] [id number] [place] [id number] Oct, Chronic obstructive pulmonary disease, unspecified J44.9 [facility] [address] [id number] [place] [id number] Sep, [facility] [address] [id number] [place] [id number] Sep, [facility] [address] [place], [place] [address] [id number] [place] [id number] Sep, Atelectasis J98.11 and Severe persistent asthma with exacerbation J45.[address] [place] [address] [id number] Sep, [place] [id number] [place] [address] [id number] Sep, Cough R05 ; Shortness of breath R06.02 ; Low oxygen saturation R79.81 ; Wheezing R06.2 ; Decreased breath sounds at right lung base R09.89 ; Fever, unspecified fever cause R50.9 and COPD exacerbation J44.1 [facility] [address] [id number] [place] [id number] Aug, Chronic sinusitis, unspecified location J32.9 and Acute mucoid otitis media of left ear H65.[address] [place] [id number] [place] [address] [id number] Aug, Medial epicondylitis of left elbow M77.02 ; Chronic sinusitis of both maxillary sinuses J32.0 and History of sinus surgery Z98.890 [address] [place] [address] [id number] Jul, [address] [place] [address] [id number] Jul, [place] [id number] [place] [address] [id number] Jul, Atrial fibrillation, unspecified type I48.91 ; Enlarged thyroid E01.0 ; Hyperthyroidism E05.90 and Pre-diabetes R73.[address] [place] [address] [id number] Jul, Elevated blood sugar R73.[address] [place] [address] [id number] Jul, Atrial fibrillation, unspecified type I48.[address] [facility] [address] [place] [address]- 3507 Jul, Atrial fibrillation, unspecified type I48.91 and Hyperthyroidism E05.90 [address] [place] [id number] [place] [address] [id number] Jun, Acute recurrent frontal sinusitis J01.11 [address] [place] [id number] [place] [address] [id number] Jun, [place] [id number] [place] [address] [id number] May, Screening breast examination Z12.31 and H/O breast augmentation Z98.82 [address] [place] [id number] [place] [address] [id number] May, [address] [id number] May, Nasal polyp J33.9 and Acute non-recurrent frontal sinusitis J01.10 [place] [id number] [place] [address] [id number] May, COPD exacerbation J44.1 [place] [id number] [place] [address] [id number] Apr, [place] [id number] [place] [address] [id number] January, Enlarged thyroid E01.0 and COPD exacerbation J44.1 [place] [id number] [place] [address] [id number] January, Chronic obstructive pulmonary disease, unspecified J44.9 [address] [place] [id number] [place] [address] [id number] Dec, [place] [id number] [place] [address] [id number] Dec, [place] [id number] [place] [address] [id number] Dec, Cough R05 ; Shortness of breath R06.02 ; Urinary frequency R35.0 and Chronic obstructive pulmonary disease, unspecified J44.9 [address] [place] [id number] [place] [address] [id number] Nov, Bronchitis J40 and Cough R05 [place] [address] [place] [id number] Aug, Pain of left hand M79.642 ; Atrial fibrillation, unspecified type I48.91 and Screening for hyperlipidemia Z13.220 [address] [place] [id number] [place] [address] [id number] Aug, [address] [id number] Aug, Pain of left foot M79.672 ; Pain in right foot M79.671 ; Pain of left hand M79.642 ; Pain in right hand M79.641 ; Screening for hyperlipidemia Z13.220 and Atrial fibrillation, unspecified type I48.[address] [id number] Jul, Rash R21 ; Arthritis of both hips M12.9 ; Depressive disorder, not elsewhere classified F32.9 ; Atrial fibrillation, unspecified type I48.91 ; Hyperthyroidism E05.90 and Chronic obstructive pulmonary disease, unspecified J44.9 [facility] [address] [address] Jun, [facility] [address] [id number]- 3016 Jun, Rosacea L71.[address] [id number] Jun, Rosacea L71.9 and Oral herpes simplex infection B00.2 [place] [id number] [place] [address] [id number] Jun, Rash R21 [address] [id number] Jun, Asthma exacerbation J45.[address] [id number] Apr, [address] [id number] Apr, Acute diffuse otitis externa of right ear H60.311 and Rash R21 [facility] [address] [place] [address] Feb, [address] [facility] [id number] [place] [address]- [address]16 Feb, [facility] [id number] [place] [address] [id number] January, Hyperthyroidism E05.90 [facility] [id number] [place] [address] [id number] January, Atrial fibrillation, unspecified type I48.[address] [facility] [id number] [place] [address]- 2546 January, [facility] [address] [id number] January, Atrial fibrillation, unspecified type I48.91 [facility] [id number] [place] [address] [id number] Dec, Asthma exacerbation J45.901 [facility] [id number] [place] [address] [id number] Dec, [facility] [id number] [place] [address] [id number] Oct, Acute maxillary sinusitis, recurrence not specified J01.00 and Acute cystitis with hematuria N30.01 [facility] [id number] [place] [address] [id number] Oct, Sinusitis J32.9 [place] [id number] [place] [address] [id number] Sep, Chronic obstructive pulmonary disease, unspecified J44.9 ; Depressive disorder, not elsewhere classified F32.9 ; Arthritis of both hips M12.9 and Essential hypertension I10 [facility] [address] [id number] [place] [id number] Sep, [facility] [id number] [place] [address] [id number] Sep, [place] [id number] [place] [address] [id number] Sep, Right hip pain M25.551 [place] [id number] [place] [id number] Sep, [facility] [id number] [place] [id number] Sep, [facility] [id number] [place] [id number] Sep, Hemoptysis R04.2 ; Pain in right hip M25.551 and Pain in left hip M25.552 [facility] [id number] [place] [id number] Aug, [facility] [id number] [place] 134007965 Aug, Sinusitis J32.9 ; Cough R05 and Wheezing R06.2 [facility] [address] [id number] May, [facility] [id number] [place] [id number] May, [facility] [id number] [place] [id number] May, [facility] [id number] [place] [id number] Apr, Chronic airway obstruction, not elsewhere classified 496 [facility] [id number] [place] [id number] Apr, [place] [id number] [place] [id number] Apr, Bronchitis, chronic obstructive, with exacerbation 491.21 [facility] [id number] [place] [id number] Mar, [facility] [id number] [place] [id number] Mar, Asthma, unspecified, with (acute) exacerbation 493.92 and Rhinitis 472.0 [facility] [id number] [place] [id number] Feb, [place] [id number] [place] [id number] Feb, [facility] [place]00565100[place] [id number] Feb, Pituitary incidentaloma 227.3 and Abnormal MRI of the head 793.0 [address] [place] [address] [id number] Feb, [place] [id number] [place] [address] [id number] January, Muscle weakness of lower extremity 728.87 ; Abnormal involuntary movements 781.0 ; Unspecified otitis media 382.9 and Other general symptoms 780.99 [address] [place] [address] [id number] January, Acute sinusitis, unspecified 461.9 and Muscle weakness of lower extremity 728.87 [address] [place] [id number] [place] [address] [id number] January, Bronchitis 490 and Cough 786.2 [address]00565100[place] [id number] Dec, [address] [place] [address] [id number] Dec, [address] [place] [address] [id number] Dec, [facility] [id number] [place] [address] [id number] 2964 Dec, [facility] [id number] [place] [address] [id number] 5832 Dec, [facility] [id number] [place] [address] [id number]- 9403 Oct, [facility] [id number] [place] [address] [id number]- 8374 Oct, [facility] [address] [id number] 4068 Oct, [facility] [id number] [place] [address] [id number] 2855 Oct, [facility] [id number] [place] [address] 47048- 7806 Oct, 2014 [facility] [place] [facility] [address] [facility] [id number] [place] [address]- 2946 Oct, 2014 [facility] [place] [facility] [address] [address] [id number] [address]- 0771 Oct, 2014 [facility] [address] [facility] [place] [id number] [place] [id number] Oct, 2014 [facility] [place] [facility] [address] [facility] [id number] [place] [address] 19300- 8949 Oct, 2014 [facility] [place] [facility] [address] [place] [address] 75115- 5381 Oct, 2014 [facility] [place] [facility] [address]00565100[place] [address]- 9412 Oct, 2014 [facility] [place] [id number] [place] [id number] Aug, [facility] [place] [facility] [address]00565100[place] [address]- 2741 Aug, [facility] [place] [id number] [place] [id number] Jul, [facility] [place] [facility] [address]00565100[place] [address]- 1496 Jul, [facility] [place] [facility] [address]00565100[place] [address]- 8546 Jun, [facility] [place] [address] [facility] [place] [id number] [place] [id number] 15 Jun, 2014 [facility] [place] [facility] [address] [facility] [id number] [address]- 5472 14 Jun, 2014 [facility] [place] [address] [id number] [place] [id number] Jun, [facility] [place] [facility] [address] [facility] [id number] [place] [address]- 2546 Jun, [facility] [place] [id number] [place] [id number] May, [facility] [place] [facility] [address] [id number] [place] [address]- 8606 May, [facility] [place] [address] [facility] [place] [id number] [place] [id number] May, [facility] [place] [facility] [address] [id number] [place] [address] 2546 May, [facility] [place] [address] [facility] [place] [id number] [place] [id number] May, [facility] [place] [facility] [address] [id number] [place] [address] 2546 May, [facility] [place] [facility] [address] [facility] [id number] [place] [address]- 7426 Mar, [facility] [place] [facility] [address] [facility] [id number] [place] [address]- 0186 Mar, [facility] [place] [address] [facility] [place] [id number] [place] [id number] January, [facility] [place] [facility] [address] [id number] [place] [address]- 6237 January, [facility] [place] [address] [facility] [id number] [place] [id number] Oct, [facility] [place] [facility] [address] [facility] [id number] [place] [address]- 8276 Oct, [facility] [place] [facility] [address] [facility] [id number] [place] [address]- 8102 Jul, [facility] [place] [facility] [address] [id number] [address]- 4986 Jun, [facility] [place] [facility] [address] [id number] [place] [address]- 6279 Jun, [facility] [place] [facility] [address] [id number] [place] [address]- 0196 May, [facility] [place] [facility] [address] [facility] [id number] [place] [address]- 4972 May, [facility] [place] [facility] [address] [id number] [place] [address]- 2504 Apr, [facility] [place] [facility] [address] [id number] [place] [address]- 6152 Apr, [facility] [place] [facility] [address] [id number] [place] [address]- 7554 Mar, [facility] [place] [facility] [address] [id number] [place] [address]- 8416 Feb, [facility] [place] [facility] [address] [id number] [place] [address]- 1120 Nov, [facility] [place] [facility] [address] [id number] [place] [address]- 6205 Oct, [facility] [place] [facility] [address] [facility] [id number] [place] [address]- 3770 Oct, [facility] [place] [facility] [address] [id number] [place] [address]- 4501 Oct, [facility] [place] [facility] [address] [id number] [place] [address]- 6086 Oct, [facility] [place] [facility] [address] [facility] [id number] [place] [address]- 5287 Oct, [facility] [place] [facility] [address] [facility] [id number] [place] [address]- 8378 Sep, [facility] [place] [facility] [address] [id number] [address]- 5799 Sep, [facility] [place] [facility] [address] [id number] [place] [address]- 0872 Jul, [facility] [place] [facility] [address] [id number] [place] [address]- 3464 Jul, [facility] [place] [facility] [address] [id number] [place] [address]- 9650 May, [facility] [place] [facility] [address] [id number] [place] [address]- 8288 06 May, 2011 [facility] [place] [address] [id number] [place] [id number] 05 May, 2011 [facility] [place] [facility] [address] [id number] [place] [address]- 8092 04 May, 2011 [facility] [place] [facility] [address] [id number] [place] [address]- 6646 04 May, 2011 [facility] [place] [facility] [address] [id number] [address]- 2100 May, 2011 [facility] [place] [facility] [address] [id number] [place] [address]- 9387 Apr, [facility] [place] [facility] [address] [id number] [address]- 0978 Apr, [facility] [place] [facility] [address] [id number] [address]- 7689 Apr, [facility] [place] [facility] [address] [id number] [address]- 2234 Mar, [facility] [place] [facility] [address] [id number] [address]- 3518 Mar, [facility] [place] [facility] [address] [facility] [id number] [address]- 0759 Mar, [facility] [place] [facility] [address] [id number] [address]- 0311 Mar, [facility] [place] [facility] [address] [id number] [address]- 0749 Feb, [facility] [place] [facility] [address] [id number] [id number] Feb, [facility] [place] [facility] [address] [id number] [address]- 7782 Feb, [facility] [place] [facility] [address] [id number] [place] [id number] Feb, [facility] [place] [facility] [address] [id number] [place] [address]- 2546 Feb, [facility] [address] [id number] [address]- 1336 Feb, [facility] [address] [id number] [place] [id number] January, [facility] [address] [id number] [address]- 5246 January, [facility] [place] [facility] [address] [id number] [place] [id number] January, [facility] [place] [facility] [address] [id number] [place] [address]- 7116 January, [facility] [place] [facility] [address] [id number] [id number] January, [facility] [place] [facility] [address] [id number] [place] [address]- 7746 January, [facility] [place] [facility] [address] [id number] [address]- 8946 January, [facility] [place] [facility] [address] [id number] [place] [address]- 9426 January, [facility] [place] [facility] [address] [id number] [address]- 3606 Dec, [facility] [place] [facility] [address] [id number] [address]- 0956 Dec, [facility] [place] [facility] [address] [id number] [address]- 4716 Dec, [facility] [place] [facility] [address] [id number] [address]- 4566 Dec, [facility] [place] [facility] [address] [id number] [address]- 2086 Dec, [facility] [address] [id number] [place] [id number] Dec, [facility] [place] [facility] [address] [id number] [address]- 3246 Nov, [facility] [address] [id number] [address]- 2880 Nov, [facility] [address] [facility] [id number] [address]- 2546 Nov, [facility] [address] [id number] [place] [id number] Oct, [facility] [address] [id number] [place] [id number] Oct, [facility] [address] [id number] [place] [address] Oct, [facility] [address] [id number] [id number] Sep, [facility] [address] [id number] [place] [address] Sep, [facility] [address] [facility] [place] [id number] [place] [id number] Sep, [facility] [address] [facility] [place] [id number] [place] [id number] Sep, [facility] [id number] [address] Aug, [facility] [address] [facility] [id number] [place] [address] Aug, [facility] [address] [id number] [place] [address] Aug, [facility] [place] [facility] [address] [facility] [id number] [place] [address] Aug, [facility] [place] [facility] [address] [facility] [id number] [place] [address] Jul, [facility] [place] [facility] [address] [facility] [id number] [place] [address] Jul, [facility] [address] [facility] [id number] [place] [address] 13 May, 2011 [facility] [place] [facility] [address] [id number] [place] [address] 10 Jan, 2011 [facility] [place] [facility] [address] [id number] [place] [address] 20 Dec, 2010 [facility] [place] [facility] [address] [id number] [place] [address] 18 Nov, 2010 [facility] [place] [facility] [address] [id number] [place] [address] Aug, [facility] [place] [facility] [address] [id number] [place] [address] Aug, [facility] [place] [facility] [address] [id number] [place] [address] Aug, [facility] [place] [facility] [address] [id number] [place] [address] Aug, [facility] [place] [facility] [address] [id number] [place] [address] Aug, [facility] [place] [facility] [address] [id number] [place] [address] Aug, [facility] [place] [facility] [address] [id number] [place] [address] 27 Jun, 2010 [facility] [place] [facility] [address] [id number] [place] [address] 26 Jun, 2010 [facility] [place] [facility] [address] [id number] [place] [address] 13 Jun, 2010 [facility] [place] [facility] [address] [id number] [place] [address] 12 Jun, 2010 [facility] [place] [facility] [address] [id number] [place] [address] 12 Jun, 2010 [facility] [place] [facility] [address] [id number] [place] [address] 14 May, 2010 [facility] [place] [facility] [address] [facility] [id number] [place] [id number] 10 May, 2010 IMMUNIZATIONS No Known Immunizations [...]
--- OUTSIDE RECORDS SUMMARY | 2019-01-13 10:08 | XMS REPORT ---
Author Author BRITTNEY ROMERO Organization [facility] Address [address] [place] [address] Care Team Providers Care Small Stock Facer Name Role Phone BRITTNEY ROMERO Unavailable PROBLEMS Type Condition ICD9-CM Code PJE94-GJ Code Onset Dates Condition Status SNOMED Code Problem Rosacea L71.9 Active 884247960 Problem Enlarged thyroid E01.0 Active 38068529 Problem COPD exacerbation J44.1 Active 238839952 Problem Decreased hearing of left ear H91.92 Active 204108308 Problem Severe persistent asthma with exacerbation J45.51 Active 300295027 Problem Chronic sinusitis of both maxillary sinuses J32.0 Active [id number] Problem H/O breast augmentation Z98.82 Active 964518864 Problem Atelectasis J98.11 Active 53396685 Problem Chronic sinusitis, unspecified location J32.9 Active 45381414 Problem Right wrist effusion M25.431 Active 922807781 Problem Primary osteoarthritis, left ankle and foot M19.072 Active 03947190 Problem Primary osteoarthritis of right foot M19.071 Active 926697374 Problem Depressive disorder, not elsewhere classified F32.9 Active 53621495 Problem Arthritis of both hips M12.9 Active 60171115 Problem Chronic obstructive pulmonary disease, unspecified J44.9 Active 866018343 Problem Hyperthyroidism E05.90 Active 45095049 Problem Essential hypertension I10 Active 16108886 Problem Atrial fibrillation, unspecified type I48.91 Active 52190141 ALLERGIES No Information ENCOUNTERS Encounter Location Date Diagnosis [place] [address] [facility] [id number] [id number] Dec, Jaw pain R68.84 [place] [address] [facility] [id number] [place] [id number] Dec, [place] [id number] [address] Dec, Chronic sinusitis, unspecified location J32.9 ; Swelling of left side of face R22.0 and Decreased hearing of left ear H91.92 [facility] [address] [id number] [place] [id number] Nov, Dental examination Z01.20 [address]65[address] [id number] Nov, Chronic obstructive pulmonary disease, unspecified J44.9 [place] [id number] [place] [address] [id number] Oct, Chronic obstructive pulmonary disease, unspecified J44.[address] [id number] [place] [id number] Sep, [facility] [address] [id number] [place] [id number] Sep, [facility] [address] [place] [address] [id number] Sep, Atelectasis J98.11 and Severe persistent asthma with exacerbation J45.51 [address] [place] [address] [id number] Sep, [place] [id number] [place] [address] [id number] Sep, Cough R05 ; Shortness of breath R06.02 ; Low oxygen saturation R79.81 ; Wheezing R06.2 ; Decreased breath sounds at right lung base R09.89 ; Fever, unspecified fever cause R50.9 and COPD exacerbation J44.1 [facility] [address] [id number] [place] [address] Aug, Chronic sinusitis, unspecified location J32.9 and Acute mucoid otitis media of left ear H65.112 [address] [place] [address] [id number] Aug, Medial epicondylitis of left elbow M77.02 ; Chronic sinusitis of both maxillary sinuses J32.0 and History of sinus surgery Z98.890 [place] [id number] [place] [address] [id number] Jul, [facility] [id number] [place] [id number] Jul, [place] [id number] [place] [address] [id number] Jul, Atrial fibrillation, unspecified type I48.91 ; Enlarged thyroid E01.0 ; Hyperthyroidism E05.90 and Pre-diabetes R73.03 [address] [place] [address] [id number] Jul, Elevated blood sugar R73.9 [address] [place] [address] [id number] Jul, Atrial fibrillation, unspecified type I48.91 and Hyperthyroidism E05.90 [facility] [address]00565100[place] [address] Jul, Atrial fibrillation, unspecified type I48.91 and Hyperthyroidism E05.90 [address] [place] [address] [id number] Jun, Acute recurrent frontal sinusitis J01.11 [address] [place] [address] [id number] Jun, [place] [id number] [place] [address] [id number] May, Screening breast examination Z12.31 and H/O breast augmentation Z98.82 [address] [place] [address] [id number] May, [place] [id number] [place] [address] [id number] May, Nasal polyp J33.9 and Acute non-recurrent frontal sinusitis J01.10 [address] [place] [address] [id number] May, COPD exacerbation J44.1 [address] [place] [address] [id number] Apr, [address] [place] [address] [id number] January, Enlarged thyroid E01.0 and COPD exacerbation J44.1 [place] [id number] [place] [address] [id number] January, Chronic obstructive pulmonary disease, unspecified J44.[address] [id number] Dec, [address] [id number] Dec, [address] [id number] Dec, Cough R05 ; Shortness of breath R06.02 ; Urinary frequency R35.0 and Chronic obstructive pulmonary disease, unspecified J44.[address] [id number] Nov, Bronchitis J40 and Cough R05 [address] [id number] Aug, Pain of left hand M79.642 ; Atrial fibrillation, unspecified type I48.91 and Screening for hyperlipidemia Z13.220 [place] [id number] [place] [address] [id number] Aug, [place] [id number] [place] [address] [id number] Aug, Pain of left foot M79.672 ; Pain in right foot M79.671 ; Pain of left hand M79.642 ; Pain in right hand M79.641 ; Screening for hyperlipidemia Z13.220 and Atrial fibrillation, unspecified type I48.91 [place] [address] [place] [address] [id number] Jul, Rash R21 ; Arthritis of both hips M12.9 ; Depressive disorder, not elsewhere classified F32.9 ; Atrial fibrillation, unspecified type I48.91 ; Hyperthyroidism E05.90 and Chronic obstructive pulmonary disease, unspecified J44.9 [facility] [address] [place] [id number] [place] [address] Jun, [facility] [address] [address] Jun, Rosacea L71.9 [facility] [address] [id number] [place] [address] [id number] Jun, Rosacea L71.9 and Oral herpes simplex infection B00.2 [facility] [address] [id number] Jun, Rash R21 [facility] [address] [id number] Jun, Asthma exacerbation J45.901 [facility] [address] [id number] Apr, [facility] [address] [id number] Apr, Acute diffuse otitis externa of right ear H60.311 and Rash R21 [facility] [address] [address] Feb, Rash R21 [facility] [address] [address] Feb, [facility] [address] [place] [id number] [place] [address] [id number] January, Hyperthyroidism E05.[address] [id number] January, Atrial fibrillation, unspecified type I48.91 and Hyperthyroidism E05.90 [facility] [address] [address] January, [facility] [address] [id number] [place] [address] [id number] January, Atrial fibrillation, unspecified type I48.91 [facility] [address] [id number] [place] [address] [id number] Dec, Asthma exacerbation J45.901 [facility] [address] [id number] [place] [address] [id number] Dec, [facility] [address] [id number] [place] [address] [id number] Oct, Acute maxillary sinusitis, recurrence not specified J01.00 and Acute cystitis with hematuria N30.01 [facility] [id number] [place] [id number] Oct, Sinusitis J32.9 [facility] [address] [id number] [place] [address] [id number] Sep, Chronic obstructive pulmonary disease, unspecified J44.9 ; Depressive disorder, not elsewhere classified F32.9 ; Arthritis of both hips M12.9 and Essential hypertension I10 [place] [id number]00565100[place] [id number] Sep, [facility] [id number] [place] [address] [id number] Sep, [facility] [address] [id number] [place] [address] [id number] Sep, Right hip pain M25.551 [facility] [address] [id number] [place] [address] [id number] Sep, [facility] [address] [id number] [place] [address] [id number] Sep, [facility] [address] [address] [id number] [place] [address] [id number] Sep, Hemoptysis R04.2 ; Pain in right hip M25.551 and Pain in left hip M25.552 [facility] [id number] [place] [address] [id number] Aug, [facility] [id number] [place] [id number] Aug, Sinusitis J32.9 ; Cough R05 and [facility]06.2 [facility] [address] [place] [id number] [id number] May, [facility] [id number] [place] [address] [id number] May, [facility] [id number] [place] [id number] May, [facility] [id number] [place] [address] [id number] Apr, Chronic airway obstruction, not elsewhere classified [address] [facility]00565100[place] [id number] Apr, [address] [place] [address] [id number] Apr, Bronchitis, chronic obstructive, with exacerbation 491.21 [facility] [id number] [place] [address] [id number] Mar, [place] [id number] [place] [address] [id number] Mar, Asthma, unspecified, with (acute) exacerbation 493.92 and Rhinitis 472.0 [address] [place] [address] [id number] Feb, [place] [id number] [place] [address] [id number] Feb, [address] [place] [address] [id number] Feb, Pituitary incidentaloma 227.3 and Abnormal MRI of the head 793.0 [address] [place] [address] [id number] Feb, [address] [place] [address] [id number] January, Muscle weakness of lower extremity 728.87 ; Abnormal involuntary movements 781.0 ; Unspecified otitis media 382.9 and Other general symptoms 780.99 [address] [place] [address] [id number] January, Acute sinusitis, unspecified 461.9 and Muscle weakness of lower extremity 728.87 [address]005[address] [id number] January, Bronchitis [address] [facility] [address] [id number] [place] [id number] Dec, [id number] [place] [address] [id number] Dec, [address] [id number] [place] [id number] Dec, [facility] [address]00565100[place], [place] [address] 14 Dec, 2014 [facility] [place] [facility] [address] [facility] [id number], [place] [address]- [address] Dec, [facility] [place] [facility] [address] [facility] [id number], [place] [address]- 7657 Oct, 2014 [facility] [place] [facility] [address] [facility] [id number], [place] [address]- 1906 Oct, 2014 [facility] [place] [facility] [address] [facility] [id number], [place] [address]- 9335 Oct, 2014 [facility] [place] [facility] [address] [facility] [id number] [place] [address]- 9646 Oct, 2014 [facility] [place] [facility] [address] [facility] [id number], [place] [address]- 3816 Oct, 2014 [facility] [place] [facility] [address] [facility] [id number], [place] [address]- 7218 Oct, 2014 [facility] [place] [facility] [address] [facility] [id number], [place] [address]- 9848 Oct, 2014 [facility] [address] [facility] [id number] [place] [id number] Oct, 2014 [facility] [place] [facility] [address] [facility] [id number], [place] [address]- 2699 Oct, 2014 [facility] [place] [facility] [address] [facility] [id number], [place] [address]- 9097 Oct, 2014 [facility] [place] [facility] [address] [facility] [id number], [place] [address]- 9685 Oct, 2014 [facility] [address] [facility] [id number] [place] [id number] Aug, [facility] [place] [facility] [address] [facility] [id number], [place] [address]- 5196 Aug, [facility] [address] [facility] [id number] [place] [id number] Jul, [facility] [place] [facility] [address] [facility] [id number], [place] [address]- 7755 Jul, [facility] [address] [facility] [id number], [place] [address]- 0457 Jun, [facility] [address] [facility] [id number] [place] [id number] Jun, [facility] [place] [facility] [address] [facility] [id number], [place] [address]- 4941 Jun, [facility] [address] [facility] [id number] [place] [id number] Jun, [facility] [place] [facility] [address] [facility] [id number], [place] [address]- 1670 Jun, [facility] [address] [facility] [id number] [place] [id number] May, [facility] [place] [facility] [address]00565100[place], [place] [address]- 80[address] May, [facility] [address] [facility] [id number] [place] [id number] May, [facility] [place] [facility] [address] [place] [id number], [place] [address]- 6483 May, [facility] [address] [facility] [id number] [place] [id number] May, [facility] [place] [facility] [address] [facility] [id number], [place] [address]- 5594 May, [facility] [place] [facility] [address]00565100[place], [place] [address]- 2956 Mar, [facility] [place] [facility] [address] [facility] [id number], [place] [address]- 0670 Mar, [facility] [address] [facility] [id number] [place] [id number] January, [facility] [place] [facility] [address] [facility] [id number], [place] [address]- 0619 January, [facility] [address] [facility] [id number] [place] [id number] Oct, [facility] [place] [facility] [address] [id number] [place] [address]- 6278 Oct, [facility] [place] [facility] [address] [id number] [place] [address]- 7983 Jul, [facility] [place] [facility] [address] [id number] [place] 6280 Jun, [facility] [place] [facility] [address] [id number] [place] [address]- 3245 Jun, [facility] [place] [facility] [address] [id number] [place] [address]- 5452 May, [facility] [place] [facility] [address] [id number] [place] [address]- 2084 May, [facility] [place] [facility] [address] [facility] [id number] [place] [address]- 4047 Apr, [facility] [place] [facility] [address] [facility] [id number] [place] [address]- 8328 Apr, [facility] [place] [facility] [address] [id number] [place] [address]- 3327 Mar, [facility] [place] [facility] [address] [facility] [id number] [place] [address]- 7242 Feb, [facility] [place] [facility] [address] [facility] [id number] [place] [address]- 4986 Nov, [facility] [place] [facility] [address] [id number], [place] [address]- 7203 Oct, [facility] [place] [facility] [address] [id number] [place] [address]- 0686 Oct, [facility] [place] [facility] [address] [id number] [place] [address]- 2224 Oct, [facility] [place] [facility] [address] [facility] [id number] [place]- 3848 Oct, [facility] [place] [facility] [address] [facility] [id number], [place] [address]- 2546 Oct, [facility] [place] [facility] [address] [id number] [place] [address]- 2546 Sep, [facility] [place] [facility] [address] [id number] [place] [address]- 2546 Sep, [facility] [place] [facility] [address] [id number] [place] [address]- 2546 Jul, [facility] [place] [facility] [address] [id number] [place] [address]- 2546 Jul, [facility] [place] [facility] [address] [id number] [place] [address]- 8896 May, [facility] [place] [facility] [address] [facility] [id number] [place] [address]- 2546 May, [facility] [place] [id number] [id number] 05 May, 2012 [facility] [place] [facility] [address] [id number] [place] [address]- 5155 May, [facility] [place] [facility] [address] [id number] [place] [address]- 4860 May, [facility] [place] [facility] [address] [place] [id number] [place] [address]- 3976 May, [facility] [place] [facility] [address] [id number] [place] [address]- 0276 Apr, [facility] [place] [facility] [address] [id number], [place] [address]- 2546 Apr, [facility] [place] [facility] [address] [id number] [place] [address]- 2546 Apr, [facility] [place] [facility] [address] [id number] [place] [address]- 2546 Mar, [facility] [place] [facility] [address] [id number] [place] [address]- 2546 Mar, [facility] [place] [facility] [address] [id number], [place] [address]- 2546 Mar, [facility] [address] [id number] [place] [address]- 2546 Mar, [facility] [place] [facility] [address] [id number] [place] [address]- 2546 Feb, [facility] [place] [facility] [address] [id number][place] [address] Feb, [facility] [place] [facility] [address] [id number], [place] [address]- 2546 Feb, [facility] [place] [facility] [address] [id number], [place] [id number] Feb, [facility] [place] [facility] [address] [id number], [place] [address]- 2546 Feb, [facility] [address] [id number], [place] [address]- 2546 Feb, [facility] [address] [facility] [address] [id number] [place] [id number] January, [facility] [place] [facility] [address] [id number] [place] [address]- 2546 January, [facility] [place] [facility] [address] [id number], [place] [address]16[address] January, [facility] [place] [facility] [address] [id number], [place] [address]- 2546 January, [facility] [place] [facility] [address] [id number], [place] [address] January, [facility] [place] [facility] [address] [id number] [place] [address]- 2546 January, [facility] [place] [facility] [address] [id number] [place] [address]- 2546 January, [facility] [place] [facility] [address] [id number] [place] [address]- 2546 January, [facility] [place] [facility] [address] [facility] [id number], [place] [address]- 9146 Dec, [facility] [address] [facility] [id number], [place] [address]- 0756 Dec, [facility] [place] [facility] [address] [facility] [id number], [place] [address]- 0996 Dec, [facility] [address] [facility] [id number], [place] [address]- 5830 Dec, [facility] [place] [facility] [address] [facility] [id number], [place] [address]- 3566 Dec, [facility] [address] [facility] [id number] [place] [address]37[address]39[address] Dec, [facility] [place] [facility] [address] [facility] [id number], [place] [address]- 8036 Nov, [facility] [address]00565100[place], [place] [address]- 5236 Nov, [facility] [address] [facility] [id number], [place] [address]- 2546 Nov, [facility] [place] [facility] [address]00565100[place] [id number] Oct, [facility] [place] [facility] [address]00565100[place], [place] [id number] Oct, [facility] [place] [facility] [address] [facility] [id number], [place] [address]- 2546 Oct, [facility] [address] [facility] [id number] [place] 522[address] Sep, [facility] [place] [facility] [address] [id number], [place] [address]- 2546 Sep, [facility] [address] [id number] [place] [address] Sep, [facility] [address] [facility] [id number] [place] [address] Sep, [facility] [place] [facility] [address] [facility] [id number], [place] [address]- 2220 Aug, [facility] [address] [id number] [place] [address] Aug, [facility] [place] [facility] [address] [id number] [place] [address] Aug, [facility] [place] [facility] [address] [id number] [place] [address] Aug, [facility] [place] [facility] [address] [id number] [place] [address] Jul, [facility] [place] [facility] [address] [id number] [place] [address] Jul, [facility] [place] [facility] [address] [id number] [place] [address] May, [facility] [place] [facility] [address] [id number] [place] [address] January, [facility] [place] [facility] [address] [id number] [place] [address] Dec, [facility] [place] [facility] [address] [id number] [place] [address] Nov, [facility] [place] [facility] [address] [id number] [place] [address] Aug, [facility] [place] [facility] [address] [id number] [place] [address] Aug, [facility] [place] [facility] [address] [id number] [place] [address] 10 Aug, 2010 [facility] [place] [facility] [address] [id number] [place] [address] Aug, [facility] [place] [facility] [address] [id number] [place] [address] Aug, [facility] [place] [facility] [address] [id number] [place] [address] Aug, [facility] [place] [facility] [address] [facility] [id number] [place] [id number] Jun, [facility] [address] [facility] [id number], [place] [address] Jun, [facility] [address] [id number], [place] [address] Jun, [facility] [address] [id number], [place] [address] Jun, [facility] [address] [id number], [place] [address] Jun, [facility] [address] [id number], [place] [address] 14 May, 2010 [facility] [address] [id number], [place] [address] 10 May, 2010 IMMUNIZATIONS No Known Immunizations SOCIAL HISTORY Never Assessed REASON FOR VISIT Lab draw [facility] PLAN OF CARE VITAL SIGNS MEDICATIONS Unknown Medications RESULTS No Results PROCEDURES Procedure Date Ordered Result Body Site ASSAY, TRIIODOTHYRONINE (T3) Jul 29, 2017 COMPLETE CBC W/AUTO DIFF WBC Jul 29, 2017 VENIPUNCT, ROUTINE* Jul 29, 2017 LIPID PANEL Jul 29, 2017 COMPREHEN METABOLIC PANEL Jul 29, 2017 ASSAY OF FREE THYROXINE Jul 29, 2017 ASSAY THYROID STIM HORMONE Jul 29, 2017 INSTRUCTIONS MEDICATIONS ADMINISTERED No Known Medications [...] History tubal ligation 2002 Surgical History section 1993, 1996, 2002 Surgical History tummy tuck 2002 Surgical History Sinus Surgery 2017 Hospitalization History childbirth, surgeries Hospitalization History [facility] Afib w/ [facility], HTN, COPD 01/24/16 Hospitalization History A Fib February 2016
--- OUTSIDE RECORDS SUMMARY | 2019-01-13 10:09 | XMS REPORT ---
Author Author BRITTNEY ROMERO Organization [facility] Address [address] [place] [address] Care Team Providers Care Biochemist Name Role Phone BRITTNEY ROMERO Unavailable PROBLEMS Type Condition ICD9-CM Code MPQ54-XR Code Onset Dates Condition Status SNOMED Code Problem Enlarged thyroid E01.0 Active 19903672 Problem H/O breast augmentation Z98.82 Active 901167715 Problem COPD exacerbation J44.1 Active 118619386 Problem History of breast augmentation Z98.82 Active 231823398 Problem Decreased hearing of left ear H91.92 Active 746879796 Problem Chronic sinusitis, unspecified location J32.9 Active 96283722 Problem Chronic sinusitis of both maxillary sinuses J32.0 Active 25138201226537679 Problem Atelectasis J98.11 Active 42979336 Problem Severe persistent asthma with exacerbation J45.51 Active 530388215 Problem Primary osteoarthritis, left ankle and foot M19.072 Active 48021811 Problem Chronic obstructive pulmonary disease, unspecified J44.9 Active 460591835 Problem Primary osteoarthritis of right foot M19.071 Active 302870186 Problem Right wrist effusion M25.431 Active 251855084 Problem Arthritis of both hips M12.9 Active 16848726 Problem Hyperthyroidism E05.90 Active 44825936 Problem Essential hypertension I10 Active 98357670 Problem Atrial fibrillation, unspecified type I48.91 Active 16192205 Problem Depressive disorder, not elsewhere classified F32.9 Active 74284707 Problem Rosacea L71.9 Active 742354884 ALLERGIES No Information ENCOUNTERS Encounter Location Date Diagnosis [facility] [address] [facility] [id number] [id number] January, [place] [address] [facility] [id number] [id number] January, Breast tenderness in female N64.4 ; Atypical chest pain R07.89 and History of breast augmentation Z98.[address] [id number] Dec, Jaw pain R68.[address] [place] [address] [id number] Dec, [address] [id number] Dec, Chronic sinusitis, unspecified location J32.9 ; Swelling of left side of face R22.0 and Decreased hearing of left ear H91.[address] [facility] [address] [id number] [place] [id number] Nov, Dental examination Z01.[address] [place] [address] [id number] Nov, Chronic obstructive pulmonary disease, unspecified J44.[address] [place] [address] [id number] Oct, Chronic obstructive pulmonary disease, unspecified J44.[address] [facility] [address] [id number] [place] [id number] Sep, [facility] [id number] [place] [address] [id number] Sep, [id number] [place] [address] [id number] Sep, Atelectasis J98.11 and Severe persistent asthma with exacerbation J45.51 [address] [id number] Sep, [address]65100[place] [id number] Sep, Cough R05 ; Shortness of breath R06.02 ; Low oxygen saturation R79.81 ; Wheezing R06.2 ; Decreased breath sounds at right lung base R09.89 ; Fever, unspecified fever cause R50.9 and COPD exacerbation J44.1 [facility]ITALB[facility] International GroupHERNANDEZ [address] [id number] [place] [id number] Aug, Chronic sinusitis, unspecified location J32.9 and Acute mucoid otitis media of left ear H65.[address] [place] [address] [id number] Aug, Medial epicondylitis of left elbow M77.02 ; Chronic sinusitis of both maxillary sinuses J32.0 and History of sinus surgery Z98.8[address] [place] [id number] [place] [address] [id number] Jul, [address] [id number] Jul, [place] [address] [place] [address] [id number] Jul, Atrial fibrillation, unspecified type I48.91 ; Enlarged thyroid E01.0 ; Hyperthyroidism E05.90 and Pre-diabetes R73.[address] [place] [address] [id number] Jul, Elevated blood sugar R73.9 [place] [address] [place] [address] [id number] Jul, Atrial fibrillation, unspecified type I48.91 and Hyperthyroidism E05.90 [facility] [address] [place] [id number] [place] [address] [id number] 3523 Jul, Atrial fibrillation, unspecified type I48.91 and Hyperthyroidism E05.90 [address] [place] [address] [id number] Jun, Acute recurrent frontal sinusitis J01.11 [place] [id number] [place] [address] [id number] Jun, [place] [address] [place] [address] [id number] 18 May, 2017 Screening breast examination Z12.31 and H/O breast augmentation Z98.82 [place] [id number] [place] [address] [id number] May, [place] [address] [place] [address] [id number] 06 May, 2017 Nasal polyp J33.9 and Acute non-recurrent frontal sinusitis J01.10 [place] [address] [place] [address] [id number] May, COPD exacerbation J44.1 [address] [place] [address] [id number] Apr, [address] [id number] January, Enlarged thyroid E01.0 and COPD exacerbation J44.1 [place] [address] [place] [address] [id number] January, Chronic obstructive pulmonary disease, unspecified J44.9 [address] [place] [address] [id number] Dec, [place] [address] [place] [address] [id number] Dec, [place] [address] [place] [address] [id number] Dec, Cough R05 ; Shortness of breath R06.02 ; Urinary frequency R35.0 and Chronic obstructive pulmonary disease, unspecified J44.9 [address] [place] [address] [id number] Nov, Bronchitis J40 and Cough R05 [place] [address] [place] [address] [id number] Aug, Pain of left hand M79.642 ; Atrial fibrillation, unspecified type I48.91 and Screening for hyperlipidemia Z13.220 [address] [place] [address] [id number] Aug, [place] [address] [place] [address] [id number] Aug, Pain of left foot M79.672 ; Pain in right foot M79.671 ; Pain of left hand M79.642 ; Pain in right hand M79.641 ; Screening for hyperlipidemia Z13.220 and Atrial fibrillation, unspecified type I48.91 [address] [place] [address] [id number] Jul, Rash R21 ; Arthritis of both hips M12.9 ; Depressive disorder, not elsewhere classified F32.9 ; Atrial fibrillation, unspecified type I48.91 ; Hyperthyroidism E05.90 and Chronic obstructive pulmonary disease, unspecified J44.9 [facility] [address] [address] Jun, [facility] [address] [id number] [address] Jun, Rosacea L71.[address] [id number] Jun, Rosacea L71.9 and Oral herpes simplex infection B00.2 [facility] [address] [id number] Jun, Rash R21 [address] [id number] Jun, Asthma exacerbation J45.[address] [id number] Apr, [facility] [address] [id number] Apr, Acute diffuse otitis externa of right ear H60.311 and Rash R21 [facility] [address] [address] Feb, Rash R21 [facility] [address] [address] Feb, [facility] [address] [place] [id number] [place] [address] [id number] January, Hyperthyroidism E05.90 [facility] [address] [id number] January, Atrial fibrillation, unspecified type I48.91 and Hyperthyroidism E05.90 [facility] [address] [address] January, [facility] [address] [address] [id number] [place] [address] [id number] January, Atrial fibrillation, unspecified type I48.91 [facility] [address] [id number] 14 Dec, 2015 Asthma exacerbation J45.901 [facility] [id number] [place] [address] [id number] Dec, [place] [id number] [place] [address] [id number] Oct, Acute maxillary sinusitis, recurrence not specified J01.00 and Acute cystitis with hematuria N30.01 [place] [address] [place] [address] [id number] Oct, 2015 Sinusitis J32.9 [place] [address] [place] [address] [id number] Sep, Chronic obstructive pulmonary disease, unspecified J44.9 ; Depressive disorder, not elsewhere classified F32.9 ; Arthritis of both hips M12.9 and Essential hypertension I10 [address]005[address]100[place] [id number] Sep, [place] [address] [place] [address] [id number] Sep, [place] [address] [place] [address] [id number] Sep, Right hip pain M25.551 [place] [address] [place] [address] [id number] Sep, [place] [address] [place] [address] [id number] Sep, [place] [address] [place] [address] [id number] Sep, Hemoptysis R04.2 ; Pain in right hip M25.551 and Pain in left hip M25.552 [place] [address] [place] [address] [id number] Aug, [place] [address] [place] [address] [id number] Aug, Sinusitis J32.9 ; Cough R05 and Wheezing R06.2 [facility] [id number][place] [id number] May, [address] [id number] May, [place] [id number] [id number] May, [address] [place] [address] [id number] Apr, Chronic airway obstruction, not elsewhere classified [address] [place] [address] [id number] Apr, [place] [address] [place] [address] [id number] Apr, Bronchitis, chronic obstructive, with exacerbation 491.[address] [place] [address] [id number] Mar, [place] [address] [place] [address] [id number] Mar, Asthma, unspecified, with (acute) exacerbation 493.92 and Rhinitis 472.[address] [place] [address] [id number] Feb, [address] [place] [address] [id number] Feb, [address] [place] [address] [id number] Feb, Pituitary incidentaloma 227.3 and Abnormal MRI of the head 793.0 [address] [place] [address] [id number] Feb, [address] [place] [address] [id number] January, Muscle weakness of lower extremity 728.87 ; Abnormal involuntary movements 781.0 ; Unspecified otitis media 382.9 and Other general symptoms 780.[address] [place] [address] [id number] January, Acute sinusitis, unspecified 461.9 and Muscle weakness of lower extremity 728.87 [place] [id number] [id number] January, Bronchitis 490 and Cough 786.2 [facility] [address] [facility] AVCarepartners Rehabilitation [id number] [place]LEY[place] [id number] Dec, [facility] [address] [id number] [place] [id number] Dec, [facility] [address] [place] [id number] [place] [id number] Dec, [facility] [place] [facility] [address] [place] [id number], [place] [address] Dec, [facility] [place] [facility] [address] [facility] [id number], [place] [address]- 5[address] Dec, [facility] [place] [facility] [address] [facility] [id number] [place] [address]- 2545 Oct, [facility] [place] [facility] [address] [place] [id number], [place] [address]- 6566 Oct, 2014 [facility] [place] [facility] [address] [place] [id number], [place] [address] 3660 Oct, 2014 [facility] [place] [facility] [address] [place] [id number], [place] [address] 5[address] Oct, 2014 [facility] [place] [facility] [address] [place] [id number], [place] [address]- 3170 Oct, 2014 [facility] [place] [facility] [address] [place] [address] [id number], [place] [address]- 1795 Oct, [facility] [place] [facility] [address] [place] [address] [id number], [place] [address]- 29[address] Oct, 2014 [facility] [address] [place] [id number] [id number] Oct, [facility] [place] [facility] [address] [place] [id number], [place] [address]- 1528 Oct, [facility] [place] [facility] [address] [facility] [id number], [place] [address]- 0995 Oct, [facility] [place] [facility] [address] [place] [id number], [place] [address]- 0544 Oct, 2014 [facility] [address] [place] [id number] [place] [id number] Aug, [facility] [place] [facility] [address] [facility] [id number] [place] [address]- 0721 Aug, [facility] [address] [id number] [place] [id number] Jul, [facility] [place] [facility] [address] [facility] [id number] [place] [address]- 6747 Jul, [facility] [place] [facility] [address] [facility] [id number][place] [address]- 8014 Jun, [facility] [address] [id number] [place] [id number] Jun, [facility] [place] [facility] [address] [facility] [id number], [place] [address]- 6785 Jun, [facility] [address] [facility] [id number] [place] [id number] Jun, [facility] [place] [facility] [address] [facility] [id number][place] [address]- 4339 Jun, [facility] [address] [facility] [id number] [place] [id number] May, [facility] [place] [facility] [address] [facility] [id number], [place] [address]- 5[address] May, [facility] [address] [facility] [id number] [place] [id number] May, [facility] [place] [facility] [address] [facility] [id number], [place] [address]- 8528 May, [facility] [address] [facility] [id number][place] [id number] May, [facility] [place] [facility] [address] [facility] [id number], [place] [address]- 6744 May, [facility] [place] [facility] [address] [facility] [id number], [place] [address]- 3895 Mar, [facility] [place] [facility] [address] [facility] [id number], [place] [address]- 5541 Mar, [facility] [place] [address] [id number] [place] [id number] January, [facility] [address] [id number] [place] [address]- 2546 January, [facility] [place] [address] [id number] [place] [id number] Oct, [facility] [address] [id number] [place] [address]- 1426 Oct, [facility] [place] [facility] [address] [id number] [place] [address]- 2546 Jul, [facility] [place] [facility] [address] [id number] [place] [address]- 0186 Jun, [facility] [place] [facility] [address] [id number] [place] [address]- 2546 Jun, [facility] [place] [facility] [address] [id number] [place] [address]- 2546 May, [facility] [place] [facility] [address] [id number] [place] [address]- 9996 May, [facility] [place] [facility] [address] [id number] [place] [address]- 2546 Apr, [facility] [place] [facility] [address] [place] [id number] [address]- 2546 Apr, [facility] [place] [facility] [address] [id number] [place] [address]- 2546 Mar, [facility] [place] [facility] [address] [id number] [place] [address]- 2546 Feb, [facility] [place] [facility] [address] [id number] [place] [address]- 2546 Nov, [facility] [place] [facility] [address] [id number] [place] [address]- 2546 Oct, [facility] [place] [facility] [address] [id number] [place] [address]- 1449 Oct, [facility] [address] [id number] [place] 7635 Oct, [facility] [address] [id number] [place] [address]- 7171 Oct, [facility] [address] [id number] [place] [address]- 1884 Oct, [facility] [place] [facility] [address] [id number] [place] [address]- 2128 Sep, [facility] [address] [id number] [place] [address]- 2801 Sep, [facility] [place] [facility] [address] [id number] [place] [address]- 5549 Jul, [facility] [address] [id number], [place] [address]- 8120 Jul, [facility] [address] [id number], [place] [address]- 8838 May, [facility] [address] [id number], [place] [address]- 0054 May, [facility] [address] [id number], [place] [id number] 05 May, 2012 [facility] [address] [id number], [place] [address]- 9869 May, [facility] [place] [facility] [address] [id number], [place] [address]- 6202 May, [facility] [place] [facility] [address] [id number], [place] [address]- 6806 May, [facility] [place] [facility] [address] [id number], [place] [address]- 0738 Apr, [facility] [place] [facility] [address] [id number], [place] [address]- 2181 Apr, [facility] [place] [facility] [address] [id number] [place] [address]- 2546 Apr, [facility] [address] [id number] [place] [address] 2546 Mar, [facility] [place] [facility] [address] [id number], [place] [address] 2546 Mar, [facility] [address] [id number], [place] [address] 2546 Mar, [facility] [place] [facility] [address] [id number], [place] [address]- 2546 Mar, [facility] [place] [facility] [address] [id number], [place] [address] 2546 Feb, [facility] [place] [facility] [address] [id number][place] [address] Feb, [facility] [place] [facility] [address] [id number], [place] [address] 2546 Feb, [facility] [place] [facility] [address] [id number], [place] [id number] Feb, [facility] [place] [facility] [address] [id number], [place] [address] 2546 Feb, [facility] [place] [facility] [address] [id number], [place] [address]- 2546 Feb, [facility] [place] [address] [id number][place] [id number] January, [facility] [place] [facility] [address] [id number], [place] [address]- 2546 January, [facility] [place] [facility] [address] [id number][place] [address] January, [facility] [place] [facility] [address] [id number], [place] [address]- 2546 January, [facility] [place] [facility] [address] [id number][place] [id number] January, [facility] [place] [facility] [address] [id number], [place] [address]- 2886 January, [facility] [address] [id number], [place] [address]- 3051 January, [facility] [place] [facility] [address] [id number], [place] [address]- 7036 January, [facility] [place] [facility] [address] [id number], [place] [address]- 5416 Dec, [facility] [place] [facility] [address] [id number], [place] [address]- 2230 Dec, [facility] [place] [facility] [address] [id number], [place] [address]- 2304 Dec, [facility] [place] [facility] [address] [id number], [place] [address]- 3938 Dec, [facility] [address] [id number], [place] [address]- 0030 Dec, [facility] [id number], [place] [id number] Dec, [facility] [place] [facility] [address] [id number], [place] [address]- 2256 Nov, [facility] [place] [facility] [address] [id number], [place] [address]- 2536 Nov, [facility] [place] [facility] [address] [id number], [place] [address] 2546 Nov, [facility] [place] [facility] [address], [place] [id number] Oct, [facility] [place] [facility] [address] [id number][place] [address] Oct, [facility] [place] [facility] [address] [id number], [place] [address]- 2546 Oct, [facility] [address] [facility] [id number][place] [address] Sep, [facility] [place] [facility] [address] [facility] [id number], [place] [address]- 2546 Sep, [facility] [address] [id number] [place] [id number] Sep, [facility] [place] [address] [facility] [id number] [place] [id number] Sep, [facility] [address] [facility] [id number] [place] [address]- 5566 Aug, [facility] [place] [facility] [address] [id number], [place] [address]- 4706 Aug, [facility] [address] [id number] [place] [address] Aug, [facility] [place] [facility] [address] [facility] [id number], [place] [address] Aug, [facility] [place] [facility] [address] [id number], [place] [address] Jul, [facility] [place] [facility] [address] [facility] [id number], [place] [address] Jul, [facility] [place] [facility] [address] [id number], [place] [address] May, [facility] [place] [facility] [address] [id number], [place] [address] January, [facility] [place] [facility] [address] [id number], [place] [address] Dec, [facility] [place] [facility] [address] [id number], [place] [address] Nov, [facility] [place] [facility] [address] [id number], [place] [address] Aug, [facility] [place] [facility] [address] [facility] [id number], [place] [address] Aug, [facility] [place] [facility] [address] [facility] [id number], [place] [address] Aug, [facility] [place] [facility] [address] [id number], [place] [address] 08 Aug, 2010 [facility] [id number], [place] [address] Aug, [facility] [id number], [place] [address] Aug, [facility] [id number], [place] [address] Jun, [facility] [id number], [place] [address] Jun, [facility] [id number], [place] [address] Jun, [facility] [id number], [place] [address] Jun, [facility] [id number], [place] [address] Jun, [facility] [id number], [place] [address] 14 May, 2010 [facility] [address] [id number], [place] [address] 10 May, 2010 IMMUNIZATIONS No Known Immunizations [...]
--- OUTSIDE RECORDS SUMMARY | 2019-01-13 10:11 | XMS REPORT ---
Author Author JR CASAS [facility] Address [address] [place] [address] Care Team Providers Care Programmer Name Role Phone JR CASAS Unavailable PROBLEMS Type Condition ICD9-CM Code [id number] Code Onset Dates Condition Status SNOMED Code Problem Enlarged thyroid E01.0 Active 10120742 Problem H/O breast augmentation Z98.82 Active 682000405 Problem COPD exacerbation J44.1 Active 910438689 Problem History of breast augmentation Z98.82 Active 530931576 Problem Decreased hearing of left ear H91.92 Active 549181590 Problem Chronic sinusitis, unspecified location J32.9 Active 64244562 Problem Chronic sinusitis of both maxillary sinuses J32.0 Active 67496726008258612 Problem Atelectasis J98.11 Active 18978910 Problem Severe persistent asthma with exacerbation J45.51 Active 914854090 Problem Primary osteoarthritis, left ankle and foot M19.072 Active 31128936 Problem Chronic obstructive pulmonary disease, unspecified J44.9 Active 035457764 Problem Primary osteoarthritis of right foot M19.071 Active 152762300 Problem Right wrist effusion M25.431 Active 431885063 Problem Arthritis of both hips M12.9 Active 61546990 Problem Hyperthyroidism E05.90 Active 78255497 Problem Essential hypertension I10 Active 49972115 Problem Atrial fibrillation, unspecified type I48.91 Active 59910401 Problem Depressive disorder, not elsewhere classified F32.9 Active 23934462 Problem Rosacea L71.9 Active 311739384 ALLERGIES No Information ENCOUNTERS Encounter Location Date Diagnosis [facility] [address] [id number] [id number] Mar, [facility] [address] [id number][place] [id number] Feb, [facility] [address] [id number][place] [id number] Feb, [facility] [address] [id number][place] [id number] Feb, [facility] [address] [address] Feb, [facility] [place] [id number][place] [address] January, [facility] [place] [address] [address] [place] [id number] [place] [address] [id number] January, Breast tenderness in female N64.4 ; Atypical chest pain R07.89 and History of breast augmentation Z98.82 [place] [id number] [place] [address] [id number] Dec, Jaw pain R68.84 [facility] [address] [place] [address] [id number] Dec, [facility] [place] [id number] [place] [address] [id number] Dec, Chronic sinusitis, unspecified location J32.9 ; Swelling of left side of face R22.0 and Decreased hearing of left ear H91.92 [facility] [address] [id number][place] [address] Nov, Dental examination Z01.20 [address]00565100[place] [address] Nov, Chronic obstructive pulmonary disease, unspecified J44.[address] [place] [address] [id number] Oct, Chronic obstructive pulmonary disease, unspecified J44.9 [facility] [address] [id number], [place] [id number] Sep, [facility] [address] [id number], [place] [address] Sep, [facility] [address] [address] [id number], [place] [address] Sep, Atelectasis J98.11 and Severe persistent asthma with exacerbation J45.51 [address]00565100[place] [id number] Sep, [address] [place] [address] [id number] Sep, Cough R05 ; Shortness of breath R06.02 ; Low oxygen saturation R79.81 ; Wheezing R06.2 ; Decreased breath sounds at right lung base R09.89 ; Fever, unspecified fever cause R50.9 and COPD exacerbation J44.1 [place] [address] [facility] [address] [id number][place] [id number] Aug, Chronic sinusitis, unspecified location J32.9 and Acute mucoid otitis media of left ear H65.112 [place] [id number] [place] [address] [id number] Aug, Medial epicondylitis of left elbow M77.02 ; Chronic sinusitis of both maxillary sinuses J32.0 and History of sinus surgery Z98.890 [address] [place] [address] [id number] Jul, [address] [place] [address] [id number] Jul, [place] [id number] [place] [address] [id number] Jul, Atrial fibrillation, unspecified type I48.91 ; Enlarged thyroid E01.0 ; Hyperthyroidism E05.90 and Pre-diabetes R73.[address] [place] [address] [id number] Jul, Elevated blood sugar R73.[address] [place] [address] [id number] Jul, Atrial fibrillation, unspecified type I48.[address] [facility] [address]00565100[place] [address] Jul, Atrial fibrillation, unspecified type I48.91 and Hyperthyroidism E05.90 [place] [id number] [place] [address] [id number] Jun, Acute recurrent frontal sinusitis J01.[address] [place] [address] [id number] Jun, [facility] [address] [id number] [place] [address] [id number] May, Screening breast examination Z12.31 and H/O breast augmentation Z98.82 [facility] [address] [address] [id number] [place] [address] [id number] May, [place] [address] [place] [id number] [place] [address] [id number] May, Nasal polyp J33.9 and Acute non-recurrent frontal sinusitis J01.10 [place] [address] [address] [id number] [place] [address] [id number] May, COPD exacerbation J44.1 [place] [address] [place] [id number] [place] [address] [id number] Apr, [place] [address] [place] [id number] [place] [address] [id number] January, Enlarged thyroid E01.0 and COPD exacerbation J44.1 [facility] [address] [address] [id number] [place] [address] [id number] January, Chronic obstructive pulmonary disease, unspecified J44.9 [place] [id number] [place] [address] [id number] Dec, [facility] [address] [place] [address] [id number] [place] [address] [id number] Dec, [place] [id number] [place] [address] [id number] Dec, Cough R05 ; Shortness of breath R06.02 ; Urinary frequency R35.0 and Chronic obstructive pulmonary disease, unspecified J44.9 [address] [place] [address] [id number] Nov, Bronchitis J40 and Cough R05 [place] [id number] [place] [address] [id number] Aug, Pain of left hand M79.642 ; Atrial fibrillation, unspecified type I48.91 and Screening for hyperlipidemia Z13.220 [place] [address] [place] [address] [id number] Aug, [facility] [id number] [place] [address] [id number] Aug, Pain of left foot M79.672 ; Pain in right foot M79.671 ; Pain of left hand M79.642 ; Pain in right hand M79.641 ; Screening for hyperlipidemia Z13.220 and Atrial fibrillation, unspecified type I48.[address] [id number] Jul, Rash R21 ; Arthritis of both hips M12.9 ; Depressive disorder, not elsewhere classified F32.9 ; Atrial fibrillation, unspecified type I48.91 ; Hyperthyroidism E05.90 and Chronic obstructive pulmonary disease, unspecified J44.[address] [address] Jun, [facility] [address] [place] [address] Jun, Rosacea L71.[address] [id number] Jun, Rosacea L71.9 and Oral herpes simplex infection B00.[address] [id number] Jun, Rash R21 [address] [id number] Jun, Asthma exacerbation J45.[address] [id number] Apr, [address] [id number] Apr, Acute diffuse otitis externa of right ear H60.311 and Rash R21 [facility] [address] [address] Feb, Rash R21 [facility] [address] [address] Feb, [address] [id number] January, Hyperthyroidism E05.90 [facility] [id number], [place] [id number] January, Atrial fibrillation, unspecified type I48.[address] [facility] [address] [place] [id number] [address] January, [facility] [id number] [place] [address] [id number] January, Atrial fibrillation, unspecified type I48.91 [facility] [id number], [place] [id number] Dec, Asthma exacerbation J45.901 [facility] [id number] [place] [address] [id number] Dec, [facility] [id number] [place] [address] [id number] Oct, Acute maxillary sinusitis, recurrence not specified J01.00 and Acute cystitis with hematuria N30.01 [facility] [id number], [place] [id number] Oct, Sinusitis J32.9 [place] [id number] [place] [address] [id number] Sep, Chronic obstructive pulmonary disease, unspecified J44.9 ; Depressive disorder, not elsewhere classified F32.9 ; Arthritis of both hips M12.9 and Essential hypertension I10 [facility] [address] [id number] [id number] Sep, [facility] [id number], [place] [id number] Sep, [facility] [id number], [place] [id number] Sep, Right hip pain M25.551 [facility] [id number], [place] [id number] Sep, [facility] [id number], [place] [id number] Sep, [place] [address] [place] [address] [id number] Sep, Hemoptysis R04.2 ; Pain in right hip M25.551 and Pain in left hip M25.552 [facility] [id number] [place] [address] [id number] Aug, [facility] [address] [id number] [place] [address] [id number] Aug, Sinusitis J32.9 ; Cough R05 and Wheezing R06.2 [facility] [id number] [place] [address] [id number] May, [facility] [address] [place] [address] [id number] May, [place] [id number] [place] [address] [id number] May, [place] [address] [place] [address] [id number] Apr, Chronic airway obstruction, not elsewhere classified [address] [place] [address] [place] [address] [id number] Apr, [place] [address] [place] [id number] [place] [address] [id number] Apr, Bronchitis, chronic obstructive, with exacerbation 491.21 [place] [address] [place] [address] [id number] Mar, [place] [address] [place] [address] [id number] Mar, Asthma, unspecified, with (acute) exacerbation 493.92 and Rhinitis 472.0 [place] [address] [place] [address] [id number] Feb, [address] [place] [address] [id number] Feb, [place] [address] [place] [address] [id number] Feb, Pituitary incidentaloma 227.3 and Abnormal MRI of the head 793.0 [place] [address] [place] [address] [id number] Feb, [place] [id number] [id number] January, Muscle weakness of lower extremity 728.87 ; Abnormal involuntary movements 781.0 ; Unspecified otitis media 382.9 and Other general symptoms 780.[address] [place] [address] [id number] January, Acute sinusitis, unspecified 461.9 and Muscle weakness of lower extremity 728.[address] [place] [address] [id number] January, Bronchitis 490 and Cough 786.[address] [id number], [place] [id number] Dec, [address] [place] [address] [id number] Dec, [address] [place] [address] [id number] Dec, [facility] [address] [id number] [place] [address]- [address] Dec, [facility] [address] [place] [id number] [place] [address] 226468- [address]67 Dec, [facility] [address] [place] [id number] [place] [address] [id number]- 0164 Oct, [facility] [address] [place] [id number] [place] [address] 385164- [address]374 Oct, [facility] [address] [place] [id number] [place] [address] 856870- 9332 Oct, [facility] [address] [place] [address] [id number] [place] [address] 732211- [address]053 Oct, [facility] [address] [place] [id number] [place] [address] 082299- 2982 Oct, [facility] [address] [place] [id number] [place] [address] 464888- 5076 Oct, [facility] [address] [place] [id number] [place] [address] [id number]- 4216 Oct, 2014 [facility] [address] [facility] [id number] [place] [id number] Oct, 2014 [facility] [place] [facility] [address] [facility] [id number][place] [address]- [address] Oct, 2014 [facility] [place] [facility] [address] [facility] [id number] [place] [address]- 2546 Oct, 2014 [facility] [place] [facility] [address] [facility] [id number], [place] [address] 2546 Oct, 2014 [facility] [address] [facility] [id number], [place] [id number] Aug, [facility] [place] [facility] [address] [facility] [id number][place] [address]- 37[address] Aug, [facility] [address] [facility] [id number], [place] [id number] Jul, [facility] [place] [facility] [address]00565100[place], [place] [address]- 9[address] Jul, [facility] [place] [facility] [address] [facility] [id number], [place] [address]- 9294 Jun, [facility] [address] [facility] [id number][place] [id number] Jun, [facility] [place] [facility] [address] [place] [id number], [place] [address]- 02[address] Jun, [facility] [address] [facility] [id number], [place] [id number] Jun, [facility] [place] [facility] [address] [facility] [id number], [place] [address]- 2546 Jun, [facility] [address] [facility] [id number], [place] [id number] May, [facility] [place] [facility] [address] [facility] [id number][place] [address]- 2546 May, [facility] [address] [facility] [id number], [place] [id number] May, [facility] [place] [facility] [address] [facility] [id number] [place] [address]- 3796 May, [facility] [address] [id number] [place] [id number] May, [facility] [place] [facility] [address] [id number] [place] [address] 2546 May, [facility] [place] [facility] [address] [id number][place] [address] 2546 Mar, [facility] [place] [facility] [address] [id number] [place] [address]- 0350 Mar, [facility] [address] [id number] [place] [id number] January, [facility] [place] [facility] [address] [id number] [place] [address] 2546 January, [facility] [address] [id number], [place] [id number] Oct, [facility] [place] [facility] [address] [id number][place] [address]- 7987 Oct, [facility] [place] [facility] [address] [id number] [place] [address]- 2726 Jul, [facility] [place] [facility] [address] [id number] [place] [address]- 8596 Jun, [facility] [place] [facility] [address] [id number], [place] [address]- 8794 Jun, [facility] [place] [facility] [address] [id number], [place] [address] 2541 May, [facility] [place] [facility] [address] [id number] [place] [address]- 6099 May, [facility] [place] [facility] [address] [id number] [place] [address]- 5286 Apr, [facility] [place] [facility] [address] [id number] [place] [address]- 6106 Apr, [facility] [place] [facility] [address] [id number] [place] [address]- 2757 Mar, [facility] [address] [id number] [place] [address]- 3225 Feb, [facility] [address] [id number] [place] [address]- 3893 Nov, [facility] [address] [id number] [place] [address]- 6989 Oct, [facility] [address] [id number] [place] [address]- 0691 Oct, [facility] [address] [id number] [place] [address]- 8366 Oct, [facility] [address] [id number] [place] [address]- 6742 Oct, [facility] [address] [id number] [place] [address]- 5884 Oct, [facility] [address] [id number] [place] [address]- 3250 Sep, [facility] [address] [facility] [id number] [place] [address]- 2361 Sep, [facility] [address] [id number] [place] [address]- 1144 Jul, [facility] [address] [id number], [place] [address]- 4170 Jul, [facility] [address] [id number], [place] [address]- 2115 17 May, 2012 [facility] [place] [facility] [address] [id number] [place] [address] 2546 06 May, 2012 [facility] [place] [address] [id number], [place] [id number] 05 May, 2012 [facility] [address] [facility] [id number][place] [address]- 6951 May, [facility] [address] [id number] [place] [address]- 2546 May, [facility] [place] [facility] [address] [id number] [place] [address]- 2546 May, [facility] [address] [id number] [place] [address]- 2546 Apr, [facility] [place] [facility] [address] [id number] [place] [address]- 2546 Apr, [facility] [address] [id number] [place] [address]- 1906 Apr, [facility] [place] [facility] [address] [id number] [place] [address]- 9626 Mar, [facility] [place] [facility] [address] [id number] [place] [address]- 9046 Mar, [facility] [place] [facility] [address] [id number] [place] [address]- 5947 Mar, [facility] [place] [facility] [address] [id number] [place] [address]- 7886 Mar, [facility] [place] [facility] [address] [facility] [id number], [place] [address]- 0466 Feb, [facility] [place] [facility] [address] [address] [id number] [id number] Feb, [facility] [place] [facility] [address] [id number][place] [address]- 2546 Feb, [facility] [place] [facility] [address] [facility] [id number], [place] [id number] Feb, [facility] [place] [facility] [address] [id number] [place] [address]- 2546 Feb, [facility] [place] [facility] [address] [id number][place] [address]- 2546 Feb, [facility] [address] [id number][place] [id number] January, [facility] [address] [id number] [place] [address]- 7966 January, [facility] [place] [facility] [address] [id number] [place] [id number] January, [facility] [place] [facility] [address] [id number] [place] [address]- 4936 January, [facility] [place] [facility] [address] [id number] [place] [id number] January, [facility] [place] [facility] [address] [id number] [place] [address]- 5342 January, [facility] [place] [facility] [address] [id number] [place] [address]- 2236 January, [facility] [place] [facility] [address] [id number] [place] [address]- 6956 January, [facility] [address] [id number] [place] [address]- 9037 Dec, [facility] [place] [facility] [address] [id number] [place] [address]- 6660 Dec, [facility] [place] [facility] [address] [id number] [place] [address]- 4486 Dec, [facility] [place] [facility] [address] [id number] [place] [address]- 0506 Dec, [facility] [place] [facility] [address] [id number], [place] [address]- 1176 Dec, [facility] [address] [id number], [place] [id number] Dec, [facility] [place] [facility] [address] [id number] [place] [address]- 9276 Nov, [facility] [place] [facility] [address] [id number] [place] [address] 14 Nov, 2011 [facility] [place] [facility] [address] [id number] [place] [id number] Nov, [facility] [place] [facility] [address] [id number] [place] [id number] Oct, [facility] [place] [facility] [address] [id number] [place] [id number] Oct, [facility] [address] [facility] [id number][place] [address] Oct, [facility] [address] [id number][place] [id number] Sep, [facility] [address] [id number][place] [address] Sep, [facility] [address] [id number] [place] [id number] Sep, [facility] [address] [id number][place] [id number] Sep, [facility] [id number], [place] [address] Aug, [facility] [address] [facility] [id number][place] [address] Aug, [facility] [address] [facility] [id number], [place] [address] Aug, [facility] [address] [id number], [place] [address] Aug, [facility] [address] [facility] [id number], [place] [address] Jul, [facility] [address] [facility] [id number][place] [address] Jul, [facility] [place] [facility] [address] [facility] [id number], [place] [address] May, [facility] [place] [facility] [address] [facility] [id number][place] [address] January, [facility] [address] [facility] [id number][place] [id number] Dec, [facility] [address] [facility] [id number][place] [address] Nov, [facility] [address] [facility] [id number] [address] Aug, [facility] [id number] [address] Aug, [facility] [address] [facility] [id number][place] [address] Aug, [facility] [address] [facility] [id number] [address] Aug, [facility] [id number] [place] [address] Aug, [facility] [id number] [address] Aug, [facility] [id number] [address] Jun, [facility] [id number] [address] Jun, [facility] [id number] [address] Jun, [facility] [id number] [address] Jun, [facility] [address]00565100[place] [address] Jun, [facility] [address] [id number], [place] [address] 14 May, 2010 [facility] [id number], [place] [address] 10 May, 2010 IMMUNIZATIONS No Known Immunizations SOCIAL HISTORY Never Assessed REASON FOR VISIT SOB PLAN OF CARE VITAL SIGNS MEDICATIONS Unknown [...] tummy tuck 2002 Surgical History Sinus Surgery 2016 Hospitalization History childbirth, surgeries Hospitalization History [facility] Afib w/ RVR, HTN, COPD 01/24/16 Hospitalization History A Fib February 2016
--- OUTSIDE RECORDS SUMMARY | 2019-01-13 10:12 | XMS REPORT ---
Author Author JR CASAS [facility] Address [address] [place] [address] Care Team Providers Care Real Estate Valuer Name Role Phone JR CASAS Unavailable PROBLEMS Type Condition ICD9-CM Code YVH25-[id number] Code Onset Dates Condition Status SNOMED Code Problem Enlarged thyroid E01.0 Active 17629633 Problem H/O breast augmentation Z98.82 Active 356550147 Problem COPD exacerbation J44.1 Active 329905485 Problem History of breast augmentation Z98.82 Active 717823792 Problem Decreased hearing of left ear H91.92 Active 532509274 Problem Chronic sinusitis, unspecified location J32.9 Active 00127345 Problem Chronic sinusitis of both maxillary sinuses J32.0 Active [id number] Problem Atelectasis J98.11 Active 88054825 Problem Severe persistent asthma with exacerbation J45.51 Active 443829462 Problem Primary osteoarthritis, left ankle and foot M19.072 Active 65593102 Problem Chronic obstructive pulmonary disease, unspecified J44.9 Active 405181119 Problem Primary osteoarthritis of right foot M19.071 Active 076560129 Problem Right wrist effusion M25.431 Active 014186906 Problem Arthritis of both hips M12.9 Active 41607024 Problem Hyperthyroidism E05.90 Active 75853465 Problem Essential hypertension I10 Active 01041990 Problem Atrial fibrillation, unspecified type I48.91 Active 46445729 Problem Depressive disorder, not elsewhere classified F32.9 Active 12099179 Problem Rosacea L71.9 Active [id number] ALLERGIES No Information ENCOUNTERS Encounter Location Date [facility] [address] [id number] [id number] Mar, [facility] [address] [id number][place] [id number] Feb, [facility] [address] [id number], [place] [id number] Feb, [facility] [address] [id number], [place] [address] Feb, [facility] [address] [id number] Feb, [facility] [place] [id number], [place] [id number] January, [facility] [place] [id number] [place] [address] [id number] January, Breast tenderness in female N64.4 ; Atypical chest pain R07.89 and History of breast augmentation Z98.82 [place] [id number] [place] [address] [id number] Dec, Jaw pain R68.84 [facility] [address] [place] [address] [id number] Dec, [facility] [place] [id number] [place] [address] [id number] Dec, Chronic sinusitis, unspecified location J32.9 ; Swelling of left side of face R22.0 and Decreased hearing of left ear H91.92 [facility] [address] [id number][place] [id number] Nov, Dental examination Z01.20 [address] [id number] Nov, Chronic obstructive pulmonary disease, unspecified J44.[address] [place] [address] [id number] Oct, Chronic obstructive pulmonary disease, unspecified J44.9 [facility] [address] [id number], [place] [id number] Sep, [facility] [id number][place] [id number] Sep, [facility] [address] [address] [id number][place] [id number] Sep, Atelectasis J98.11 and Severe persistent asthma with exacerbation J45.51 [address]100[place] [id number] Sep, [address] [place] [address] [id number] Sep, Cough R05 ; Shortness of breath R06.02 ; Low oxygen saturation R79.81 ; Wheezing R06.2 ; Decreased breath sounds at right lung base R09.89 ; Fever, unspecified fever cause R50.9 and COPD exacerbation J44.1 [place] [address] [id number], [place] [id number] Aug, Chronic sinusitis, unspecified location J32.9 and Acute mucoid otitis media of left ear H65.112 [place] [id number] [place] [address] [id number] Aug, Medial epicondylitis of left elbow M77.02 ; Chronic sinusitis of both maxillary sinuses J32.0 and History of sinus surgery Z98.890 [address] [place] [address] [id number] Jul, [address] [place] [address] [id number] Jul, [place] [id number] [place] [address] [id number] Jul, Atrial fibrillation, unspecified type I48.91 ; Enlarged thyroid E01.0 ; Hyperthyroidism E05.90 and Pre-diabetes R73.[address] [place] [address] [id number] Jul, Elevated blood sugar R73.9 [address] [place] [address] [id number] Jul, Atrial fibrillation, unspecified type I48.91 and Hyperthyroidism E05.90 [facility] [address]00565100[place], [place] [address] Jul, Atrial fibrillation, unspecified type I48.91 and Hyperthyroidism E05.90 [place] [id number] [place] [address] [id number] Jun, Acute recurrent frontal sinusitis J01.11 [address] [place] [address] [id number] Jun, [facility] [id number] [place] [address] [id number] May, Screening breast examination Z12.31 and H/O breast augmentation Z98.82 [facility] [id number] [place] [address] [id number] May, [place] [id number] [place] [address] [id number] May, Nasal polyp J33.9 and Acute non-recurrent frontal sinusitis J01.10 [place] [id number] [place] [address] [id number] May, COPD exacerbation J44.1 [place] [id number] [place] [address] [id number] Apr, [place] [id number] [place] [address] [id number] January, Enlarged thyroid E01.0 and COPD exacerbation J44.1 [facility] [id number] [place] [address] [id number] January, Chronic obstructive pulmonary disease, unspecified J44.9 [place] [id number] [place] [address] [id number] Dec, [facility] [id number] [place] [address] [id number] Dec, [place] [id number] [place] [address] [id number] Dec, Cough R05 ; Shortness of breath R06.02 ; Urinary frequency R35.0 and Chronic obstructive pulmonary disease, unspecified J44.9 [address] [place] [address] [id number] Nov, Bronchitis J40 and Cough R05 [place] [id number] [place] [address] [id number] Aug, Pain of left hand M79.642 ; Atrial fibrillation, unspecified type I48.91 and Screening for hyperlipidemia Z13.220 [place] [id number] [place] [address] [id number] Aug, [facility] [id number] [place] [address] [id number] Aug, Pain of left foot M79.672 ; Pain in right foot M79.671 ; Pain of left hand M79.642 ; Pain in right hand M79.641 ; Screening for hyperlipidemia Z13.220 and Atrial fibrillation, unspecified type I48.[address] [id number] Jul, Rash R21 ; Arthritis of both hips M12.9 ; Depressive disorder, not elsewhere classified F32.9 ; Atrial fibrillation, unspecified type I48.91 ; Hyperthyroidism E05.90 and Chronic obstructive pulmonary disease, unspecified J44.[address] [address] Jun, [facility] [address] [place] [address]- [address] Jun, Rosacea L71.[address] [id number] Jun, Rosacea L71.9 and Oral herpes simplex infection B00.[address] [id number] Jun, Rash R21 [address] [id number] Jun, Asthma exacerbation J45.[address] [id number] Apr, [address] [id number] Apr, Acute diffuse otitis externa of right ear H60.311 and Rash R21 [facility] [address] [address] Feb, Rash R21 [facility] [address] [address] Feb, [address] [id number] January, Hyperthyroidism E05.90 [facility] [id number] [id number] January, Atrial fibrillation, unspecified type I48.91 and Hyperthyroidism E05.90 [facility] [address] [place] [id number] [address] January, [facility] [id number] [place] [address] [id number] January, Atrial fibrillation, unspecified type I48.91 [facility] [id number], [place] [id number] Dec, Asthma exacerbation J45.901 [facility] [id number] [place] [address] [id number] Dec, [facility] [id number] [place] [address] [id number] Oct, Acute maxillary sinusitis, recurrence not specified J01.00 and Acute cystitis with hematuria N30.01 [facility] [id number], [place] [id number] Oct, Sinusitis J32.9 [place] [id number] [place] [address] [id number] Sep, Chronic obstructive pulmonary disease, unspecified J44.9 ; Depressive disorder, not elsewhere classified F32.9 ; Arthritis of both hips M12.9 and Essential hypertension I10 [facility] [address] [id number][place] [id number] Sep, [facility] [id number], [place] [id number] Sep, [facility] [id number], [place] [id number] Sep, Right hip pain M25.551 [facility] [id number], [place] [id number] Sep, [facility] [id number], [place] [id number] Sep, [place] [id number] [place] [address] [id number] Sep, Hemoptysis R04.2 ; Pain in right hip M25.551 and Pain in left hip M25.552 [facility] [id number] [place] [address] [id number] Aug, [facility] [id number] [place] [address] [id number] Aug, Sinusitis J32.9 ; Cough R05 and Wheezing R06.2 [facility] [id number] [place] [address] [id number] May, [facility] [address] [place] [address] [id number] May, [place] [id number] [place] [address] [id number] May, [place] [id number] [place] [address] [id number] Apr, Chronic airway obstruction, not elsewhere classified [address] [id number] [place] [address] [id number] Apr, [place] [address] [place] [address] [id number] [place] [address] [id number] Apr, Bronchitis, chronic obstructive, with exacerbation 491.21 [place] [id number] [place] [address] [id number] Mar, [place] [address] [place] [address] [id number] Mar, Asthma, unspecified, with (acute) exacerbation 493.92 and Rhinitis 472.0 [place] [id number] [place] [address] [id number] Feb, [address] [place] [address] [id number] Feb, [place] [id number] [place] [address] [id number] Feb, Pituitary incidentaloma 227.3 and Abnormal MRI of the head 793.0 [place] [id number] [place] [address] [id number] Feb, [id number] [address] January, Muscle weakness of lower extremity 728.87 ; Abnormal involuntary movements 781.0 ; Unspecified otitis media 382.9 and Other general symptoms 780.99 [address] [place] [address] [id number] January, Acute sinusitis, unspecified 461.9 and Muscle weakness of lower extremity 728.[address] [place] [address] [id number] January, Bronchitis 490 and Cough 786.[address] [id number][place] [id number] Dec, [address] [place] [address] [id number] Dec, [address] [place] [address] [id number] Dec, [facility] [address] [place] [id number] [place] [address] 79871- 3084 Dec, [facility] [id number] [place] [address] 627464- 8535 Dec, [facility] [id number] [place] [address] [id number]- 0748 Oct, [facility] [id number] [place] [address] 031083- 7321 Oct, [facility] [id number] [place] [address] 388778- 2729 Oct, [facility] [id number] [place] [address] 641455- 9736 Oct, [facility] [id number] [place] [address] 876265- 7980 Oct, [facility] [address] [id number] [place] [address] 648879- 4953 Oct, [facility] [id number] [place] [address] [id number] Oct, 2014 [facility] [address] [facility] [id number] [place] [id number] Oct, 2014 [facility] [place] [facility] [address] [facility] [id number], [place] [address]- [address]46 Oct, 2014 [facility] [place] [facility] [address] [facility] [id number] [place] [address]- 2546 Oct, 2014 [facility] [place] [facility] [address] [facility] [id number], [place] [address] 2546 Oct, 2014 [facility] [address] [facility] [id number][place] [id number] Aug, [facility] [place] [facility] [address] [facility] [id number], [place] [address]- 2786 Aug, [facility] [address] [facility] [id number][place] [id number] Jul, [facility] [place] [facility] [address]00565100[place], [place] [address]- 7206 Jul, [facility] [place] [facility] [address] [facility] [id number], [place] [address]- 7529 Jun, [facility] [address] [facility] [id number], [place] [id number] Jun, [facility] [place] [facility] [address] [id number], [place] [address]- 5647 Jun, [facility] [address] [facility] [id number], [place] [id number] Jun, [facility] [place] [facility] [address] [facility] [id number], [place] [address]- 2546 Jun, [facility] [address] [facility] [id number], [place] [id number] May, [facility] [place] [facility] [address] [facility] [id number], [place] [address]- 2546 May, [facility] [address] [facility] [id number][place] [id number] May, [facility] [place] [facility] [address] [facility] [id number] [place] [address]- 4856 May, [facility] [address] [id number] [place] [id number] May, [facility] [place] [facility] [address] [id number] [place] [address] 2546 May, [facility] [place] [facility] [address] [id number], [place] [address] 2546 Mar, [facility] [place] [facility] [address] [id number] [place] [address]- 0942 Mar, [facility] [address] [id number] [place] [id number] January, [facility] [place] [facility] [address] [id number] [place] [address] 2546 January, [facility] [address] [id number], [place] [id number] Oct, [facility] [place] [facility] [address] [id number], [place] [address]- 8082 Oct, [facility] [place] [facility] [address] [id number] [place] [address]- 0327 Jul, [facility] [place] [facility] [address] [id number] [place] [address]- 4316 Jun, [facility] [place] [facility] [address] [id number], [place] [address]- 7471 Jun, [facility] [place] [facility] [address] [id number], [place] [address] 2544 May, [facility] [place] [facility] [address] [id number] [place] [address]- 8026 May, [facility] [place] [facility] [address] [id number] [place] [address]- 5146 Apr, [facility] [place] [facility] [address] [id number] [place] [address]- 8086 Apr, [facility] [place] [facility] [address] [id number] [place] [address]- 0166 Mar, [facility] [address] [id number] [place] [address]- 1966 Feb, [facility] [address] [id number] [place] [address]- 5544 Nov, [facility] [address] [id number] [place] [address]- 0699 Oct, [facility] [address] [id number] [place] [address]- 0937 Oct, [facility] [address] [id number] [place] [address]- 8362 Oct, [facility] [address] [id number] [place] [address]- 1432 Oct, [facility] [address] [id number] [place] [address]- 3513 Oct, [facility] [address] [id number] [place] [address]- 8636 Sep, [facility] [address] [facility] [id number] [place] [address]- 5985 Sep, [facility] [address] [id number] [place] [address]- 7328 Jul, [facility] [address] [id number], [place] [address]- 9419 Jul, [facility] [address] [id number], [place] [address]- 7713 17 May, 2012 [facility] [place] [facility] [address] [id number] [place] [address] 2546 06 May, 2012 [facility] [place] [address] [id number], [place] [id number] 05 May, 2012 [facility] [address] [facility] [id number], [place] [address]- 2598 May, [facility] [address] [id number] [place] [address]- 2546 May, [facility] [place] [facility] [address] [id number] [place] [address]- 2546 May, [facility] [address] [id number] [place] [address]- 2546 Apr, [facility] [place] [facility] [address] [id number] [place] [address]- 2546 Apr, [facility] [address] [id number] [place] [address]- 1726 Apr, [facility] [place] [facility] [address] [id number] [place] [address]- 7586 Mar, [facility] [place] [facility] [address] [id number] [place] [address]- 9746 Mar, [facility] [place] [facility] [address] [id number] [place] [address]- 9408 Mar, [facility] [place] [facility] [address] [id number] [place] [address]- 0786 Mar, [facility] [place] [facility] [address] [facility] [id number], [place] [address]- 7026 Feb, [facility] [place] [facility] [address] [id number] [id number] Feb, [facility] [place] [facility] [address] [id number], [place] [address]- 2546 Feb, [facility] [place] [facility] [address] [facility] [id number], [place] [id number] Feb, [facility] [place] [facility] [address] [id number] [place] [address]- 2546 Feb, [facility] [place] [facility] [address] [id number], [place] [address]- 2546 Feb, [facility] [address] [id number][place] [id number] January, [facility] [address] [id number] [place] [address]- 6606 January, [facility] [place] [facility] [address] [id number] [place] [id number] January, [facility] [place] [facility] [address] [id number] [place] [address]- 7656 January, [facility] [place] [facility] [address] [id number] [place] [id number] January, [facility] [place] [facility] [address] [id number] [place] [address]- 7343 January, [facility] [place] [facility] [address] [id number] [place] [address]- 9516 January, [facility] [place] [facility] [address] [id number] [place] [address]- 1196 January, [facility] [address] [id number] [place] [address]- 3495 Dec, [facility] [place] [facility] [address] [id number] [place] [address]- 2673 Dec, [facility] [place] [facility] [address] [id number] [place] [address]- 4916 Dec, [facility] [place] [facility] [address] [id number] [place] [address]- 6416 Dec, [facility] [place] [facility] [address] [id number], [place] [address]- 2876 Dec, [facility] [address] [id number], [place] [id number] Dec, [facility] [place] [facility] [address] [id number] [place] [address]- 1746 Nov, [facility] [place] [facility] [address] [id number] [place] [address]- 3097 14 Nov, 2011 [facility] [place] [facility] [address] [id number] [place] [address]- 2118 Nov, [facility] [place] [facility] [address] [id number] [place] [id number] Oct, [facility] [place] [facility] [address] [id number] [place] [id number] Oct, [facility] [address] [facility] [id number], [place] [address]- 2546 Oct, [facility] [address] [id number], [place] [id number] Sep, [facility] [address] [id number], [place] [address] Sep, [facility] [address] [id number] [place] [id number] Sep, [facility] [address] [id number][place] [id number] Sep, [facility] [id number], [place] [address] Aug, [facility] [address] [facility] [id number], [place] [address] Aug, [facility] [address] [facility] [id number], [place] [address] Aug, [facility] [address] [id number], [place] [address] Aug, [facility] [address] [facility] [id number], [place] [address] Jul, [facility] [address] [facility] [id number], [place] [address] Jul, [facility] [place] [facility] [address] [facility] [id number], [place] [address] May, [facility] [place] [facility] [address] [facility] [id number], [place] [address] January, [facility] [address] [facility] [id number][place] [address] Dec, [facility] [address] [facility] [id number], [place] [address] Nov, [facility] [address] [facility] [id number], [place] [address] Aug, [facility] [address] [id number], [place] [address] Aug, [facility] [address] [facility] [id number], [place] [address] Aug, [facility] [address] [facility] [id number], [place] [address] Aug, [facility] [address] [facility] [id number] [place] [address] Aug, [facility] [id number], [place] [address] Aug, [facility] [id number], [place] [address] Jun, [facility] [id number], [place] [address] Jun, [facility] [id number], [place] [address] Jun, [facility] [id number], [place] [address] Jun, [facility] [id number], [place] [address] Jun, [facility] [address] [id number], [place] [address] 14 May, 2010 [facility] [id number], [place] [address] 10 May, 2010 IMMUNIZATIONS No Known Immunizations SOCIAL HISTORY Never Assessed REASON FOR VISIT Brittanie Ward - Lung Problem case of Bandar's PLAN OF CARE VITAL SIGNS MEDICATIONS Unknown [...]
--- OUTSIDE RECORDS SUMMARY | 2019-01-13 10:13 | XMS REPORT ---
Author Author BRITTNEY ROMERO Organization [facility] Address [address] [place] [address] Care Team Providers Care Epic Ambulatory Analyst Name Role Phone BRITTNEY ROMERO Unavailable PROBLEMS Type Condition ICD9-CM Code MCV27-ND Code Onset Dates Condition Status SNOMED Code Problem Enlarged thyroid E01.0 Active 48514124 Problem H/O breast augmentation Z98.82 Active 507602642 Problem COPD exacerbation J44.1 Active 266473860 Problem History of breast augmentation Z98.82 Active 979725392 Problem Decreased hearing of left ear H91.92 Active 389156550 Problem Chronic sinusitis, unspecified location J32.9 Active 16339775 Problem Chronic sinusitis of both maxillary sinuses J32.0 Active 13598328518074201 Problem Atelectasis J98.11 Active 07981531 Problem Severe persistent asthma with exacerbation J45.51 Active 313339290 Problem Primary osteoarthritis, left ankle and foot M19.072 Active 20131352 Problem Chronic obstructive pulmonary disease, unspecified J44.9 Active 507604792 Problem Primary osteoarthritis of right foot M19.071 Active 195907539 Problem Right wrist effusion M25.431 Active 213419420 Problem Arthritis of both hips M12.9 Active 59448424 Problem Hyperthyroidism E05.90 Active 70357593 Problem Essential hypertension I10 Active 59204678 Problem Atrial fibrillation, unspecified type I48.91 Active 21819441 Problem Depressive disorder, not elsewhere classified F32.9 Active 29217311 Problem Rosacea L71.9 Active 309062087 ALLERGIES No Information ENCOUNTERS Encounter Location Date Diagnosis [address] [id number] [place] [id number] Mar, [facility] [address] [id number] [place] [id number] Feb, [facility] [address] [id number][place] [id number] Feb, [facility] [address] [id number] [id number] Feb, [facility] [place] [id number], [place] [id number] Feb, [facility] [address]00565100[place] [id number] January, [facility] [place] [id number] [place] [address] [id number] January, Breast tenderness in female N64.4 ; Atypical chest pain R07.89 and History of breast augmentation Z98.82 [facility] [place] [id number] [place] [address] [id number] Dec, Jaw pain R68.84 [facility] [address] [place] [address] [id number] Dec, [facility] [place] [id number] [place] [address] [id number] Dec, Chronic sinusitis, unspecified location J32.9 ; Swelling of left side of face R22.0 and Decreased hearing of left ear H91.92 [facility] [address] [facility] [address] [id number][place] [address] Nov, Dental examination Z01.20 [facility] [address]00565100[place] [address] Nov, Chronic obstructive pulmonary disease, unspecified J44.9 [facility] [address]00565100[place] [address] Oct, Chronic obstructive pulmonary disease, unspecified J44.9 [facility] [address] [facility] [address] [id number], [place] [id number] Sep, [facility] [place] [address] [facility] [address] [id number][place] [address] Sep, [facility] HER[facility] [address] [facility] [id number][place] [address] Sep, Atelectasis J98.11 and Severe persistent asthma with exacerbation J45.51 [address]00565100[place] [id number] Sep, [place] [id number] [place] [address] [id number] Sep, Cough R05 ; Shortness of breath R06.02 ; Low oxygen saturation R79.81 ; Wheezing R06.2 ; Decreased breath sounds at right lung base R09.89 ; Fever, unspecified fever cause R50.9 and COPD exacerbation J44.[address] [id number][place] [address] Aug, Chronic sinusitis, unspecified location J32.9 and Acute mucoid otitis media of left ear H65.112 [place] [id number] [place] [address] [id number] Aug, Medial epicondylitis of left elbow M77.02 ; Chronic sinusitis of both maxillary sinuses J32.0 and History of sinus surgery Z98.890 [address] [place] [address] [id number] Jul, [address] [place] [address] [id number] Jul, [place] [id number] [place] [address] [id number] Jul, Atrial fibrillation, unspecified type I48.91 ; Enlarged thyroid E01.0 ; Hyperthyroidism E05.90 and Pre-diabetes R73.[address] [place] [address] [id number] Jul, Elevated blood sugar R73.9 [address] [place] [address] [id number] Jul, Atrial fibrillation, unspecified type I48.91 and Hyperthyroidism E05.90 [facility] [address] [id number] [address] Jul, Atrial fibrillation, unspecified type I48.91 and Hyperthyroidism E05.90 [address] [place] [address] [id number] Jun, Acute recurrent frontal sinusitis J01.11 [facility] [id number] [place] [address] [id number] Jun, [address] [id number] May, Screening breast examination Z12.31 and H/O breast augmentation Z98.82 [facility] [id number] [place] [address] [id number] May, [address] [id number] May, Nasal polyp J33.9 and Acute non-recurrent frontal sinusitis J01.[address] [id number] May, COPD exacerbation J44.[address] [id number] Apr, [address] [id number] January, Enlarged thyroid E01.0 and COPD exacerbation J44.1 [place] [id number] [place] [address] [id number] January, Chronic obstructive pulmonary disease, unspecified J44.[address] [id number] Dec, [place] [id number] [place] [address] [id number] Dec, [place] [id number] [place] [address] [id number] Dec, Cough R05 ; Shortness of breath R06.02 ; Urinary frequency R35.0 and Chronic obstructive pulmonary disease, unspecified J44.9 [place] [id number] [place] [address] [id number] Nov, Bronchitis J40 and Cough R05 [place] [id number] [place] [address] [id number] Aug, Pain of left hand M79.642 ; Atrial fibrillation, unspecified type I48.91 and Screening for hyperlipidemia Z13.220 [place] [id number] [place] [address] [id number] Aug, [place] [id number] [place] [address] [id number] Aug, Pain of left foot M79.672 ; Pain in right foot M79.671 ; Pain of left hand M79.642 ; Pain in right hand M79.641 ; Screening for hyperlipidemia Z13.220 and Atrial fibrillation, unspecified type I48.[address] [id number] Jul, Rash R21 ; Arthritis of both hips M12.9 ; Depressive disorder, not elsewhere classified F32.9 ; Atrial fibrillation, unspecified type I48.91 ; Hyperthyroidism E05.90 and Chronic obstructive pulmonary disease, unspecified J44.[address] [address] Jun, [facility] [address] [place] [address] Jun, Rosacea L71.[address] [id number] Jun, Rosacea L71.9 and Oral herpes simplex infection B00.[address] [id number] Jun, Rash R21 [address] [id number] Jun, Asthma exacerbation J45.901 [place] [id number] [place] [address] [id number] Apr, [address] [id number] Apr, Acute diffuse otitis externa of right ear H60.311 and Rash R21 [facility] [address] [address] Feb, Rash R21 [facility] [address] [address] Feb, [address] [id number] January, Hyperthyroidism E05.90 [facility] [id number] [place] [address] [id number] January, Atrial fibrillation, unspecified type I48.91 and Hyperthyroidism E05.90 [facility] [address]00565100[place] [address] January, [facility] [id number] [place] [address] [id number] January, Atrial fibrillation, unspecified type I48.91 [facility] [id number] [place] [address] [id number] Dec, Asthma exacerbation J45.901 [facility] [id number] [place] [address] [id number] Dec, [facility] [id number] [place] [address] [id number] Oct, Acute maxillary sinusitis, recurrence not specified J01.00 and Acute cystitis with hematuria N30.01 [facility] [id number] [place] [address] [id number] Oct, Sinusitis J32.9 [facility] [id number] [place] [address] [id number] Sep, Chronic obstructive pulmonary disease, unspecified J44.9 ; Depressive disorder, not elsewhere classified F32.9 ; Arthritis of both hips M12.9 and Essential hypertension I10 [facility] [address] [facility] [address] [id number], [place] [address] Sep, [facility] [id number], [place] [id number] Sep, [facility] [id number] [place] [address] [id number] Sep, Right hip pain M25.551 [facility] [id number] [place] [address] [id number] Sep, [facility] [id number] [place] [address] [id number] Sep, [facility] [address] [id number] [address] Sep, Hemoptysis R04.2 ; Pain in right hip M25.551 and Pain in left hip M25.552 [facility] [id number] [place] [address] [id number] Aug, [facility] [id number] [place] [address] [id number] Aug, Sinusitis J32.9 ; Cough R05 and Wheezing R06.2 [facility] [address] [id number] [id number] May, [facility] [id number] [place] [address] [id number] May, [place] [id number] [place] [address] [id number] May, [facility] [id number] [place] [address] [id number] Apr, Chronic airway obstruction, not elsewhere classified 496 [facility] [id number] [place] [address] [id number] Apr, [facility] [id number] [place] [address] [id number] Apr, Bronchitis, chronic obstructive, with exacerbation 491.21 [facility] [id number] [place] [address] [id number] Mar, [place] [id number] [place] [address] [id number] Mar, Asthma, unspecified, with (acute) exacerbation 493.92 and Rhinitis 472.0 [facility] [id number] [place] [address] [id number] Feb, [address] [place] [address] [id number] Feb, [place] [id number] [place] [address] [id number] Feb, Pituitary incidentaloma 227.3 and Abnormal MRI of the head 793.0 [place] [id number] [place] [address] [id number] Feb, [address] [id number], [place] [id number] January, Muscle weakness of lower extremity 728.87 ; Abnormal involuntary movements 781.0 ; Unspecified otitis media 382.9 and Other general symptoms 780.[address] [place] [address] [id number] January, Acute sinusitis, unspecified 461.9 and Muscle weakness of lower extremity 728.[address] [place] [address] [id number] January, Bronchitis 490 and Cough 786.[address] [id number], [place] [id number] Dec, [address] [place] [address] [id number] Dec, [address] [place] [address] [id number] Dec, [facility] [id number] [place] [address]- 5334 Dec, [facility] [id number] [place] [address] 393871- 4834 Dec, [facility] [id number] [place] [address] [id number]- 3030 Oct, [facility] [id number] [place] [address] 005119- 4150 Oct, [facility] [id number] [place] [address]12- 3936 Oct, [facility] [id number] [place] [address] 220966- 7154 Oct, [facility] [id number] [place] [address] [id number]- 4562 Oct, [facility] [id number] [place] [address] 59227- 6796 Oct, [facility] [id number] [place] [address] [place] [address] Oct, 2014 [facility] [address] [facility] [id number], [place] [id number] Oct, 2014 [facility] [place] [facility] [address] [facility] [id number] [place] [address]- 2[address] Oct, 2014 [facility] [place] [facility] [address]00565100[place] [address] 2546 Oct, 2014 [facility] [place] [facility] [address]00565100[place] [address] Oct, 2014 [facility] [address] [facility] [id number], [place] [id number] Aug, [facility] [place] [facility] [address]00565100[place] [address]- 09[address] Aug, [facility] [id number], [place] [id number] Jul, [facility] [place] [facility] [address]00565100[place] [address]- 9922 Jul, [facility] [place] [facility] [address]00565100[place] [address]- 4800 Jun, [facility] [address] [facility] [id number], [place] [id number] Jun, [facility] [place] [facility] [address]00565100[place] [address]- 8225 Jun, [facility] [address] [facility] [id number], [place] [id number] Jun, [facility] [place] [facility] [address] [facility] [id number] [place] [address]- 4474 Jun, [facility] [address] [facility] [id number], [place] [id number] May, [facility] [place] [facility] [address] [facility] [id number] [place] [address]- 2546 May, [facility] [address] [facility] [id number], [place] [id number] May, [facility] [place] [facility] [address] [id number] [place] [address]- 2546 May, [facility] [address] [id number] [place] [id number] May, [facility] [place] [facility] [address] [id number] [place] [address]- 2546 May, [facility] [place] [facility] [address] [id number] [place] [address]- 2546 Mar, [facility] [place] [facility] [address] [id number] [place] [address]- 2546 Mar, [facility] [address] [id number] [place] [id number] January, [facility] [place] [facility] [address] [id number] [place] [address]- 2546 January, [facility] [address] [id number] [place] [id number] Oct, [facility] [place] [facility] [address] [id number] [place] [address]- 8866 Oct, [facility] [place] [facility] [address] [id number] [place] [address]- 2406 Jul, [facility] [place] [facility] [address] [facility] [id number] [place] [address]- 2546 Jun, [facility] [place] [facility] [address] [id number] [place] [address]- 2546 Jun, [facility] [place] [facility] [address] [id number] [place] [address]- 2546 May, [facility] [place] [facility] [address] [id number] [place] [address]- 1406 May, [facility] [place] [facility] [address] [id number] [place] [address]- 2546 Apr, [facility] [place] [facility] [address] [id number] [place] [address]- 2546 Apr, [facility] [place] [facility] [address] [id number] [place] [address]- 3055 Mar, [facility] [address] [id number] [place] [address]- 9470 Feb, [facility] [address] [id number] [place] [address]- 8754 Nov, [facility] [place] [facility] [address] [id number] [place] [address]- 4185 Oct, [facility] [address] [id number] [place] [address]- 8991 Oct, [facility] [address] [id number] [place] [address]- 7284 Oct, [facility] [address] [id number] [place] [address]- 8781 Oct, [facility] [address] [id number] [place] [address]- 1600 Oct, [facility] [address] [id number] [place] [address]- 9586 Sep, [facility] [address] [facility] [id number] [place] [address]- 2055 Sep, [facility] [address] [id number] [place] [address]- 8226 Jul, [facility] [address] [id number] [place] [address]- 8694 Jul, [facility] [place] [facility] [address] [id number] [place] [address]- 8191 17 May, 2012 [facility] [place] [facility] [address] [id number] [place] [address]- 3726 06 May, [address] [facility] [address] [id number], [place] 745[place]3768 05 May, 2012 [facility] [address] [id number] [place] [address]- 2429 May, [facility] [address] [id number] [place] [address] 2543 May, [facility] [address] [id number] [place] [address]- 2546 May, [facility] [address] [id number] [place] [address] 2549 Apr, [facility] [place] [facility] [address] [id number] [place] [address]- 0074 Apr, [facility] [address] [id number] [place] [address]- 8320 Apr, [facility] [address] [id number] [place] [address]- 7978 Mar, [facility] [address] [id number] [place] [address]- 9001 Mar, [facility] [address] [id number] [place] [address]- 6087 Mar, [facility] [address] [id number] [place] [address]- 9690 Mar, [facility] [address] [facility] [id number] [place] [address]- 9920 Feb, [facility] [address] [id number] [place] [id number] Feb, [facility] [place] [facility] [address] [id number] [place] [address] 2546 Feb, [facility] [place] [facility] [address] [id number] [place] 413[address] Feb, [facility] [place] [facility] [address] [id number] [place] [address]- 2546 Feb, [facility] [place] [facility] [address] [id number] [place] [address]- 2546 Feb, [facility] [address] [id number], [place] [id number] January, [facility] [address] [id number] [place] [address]- 4046 January, [facility] [place] [facility] [address] [id number] [place] [id number] January, [facility] [place] [facility] [address] [id number] [place] [address]- 5386 January, [facility] [place] [facility] [address] [id number] [place] [address] January, [facility] [place] [facility] [address] [id number] [place] [address]- 0498 January, [facility] [address] [id number] [address]- 5686 January, [facility] [address] [id number] [place] [address]- 5256 January, [facility] [place] [facility] [address] [id number] [place] [address]- 8436 Dec, [facility] [address] [id number] [place] [address]- 4240 Dec, [facility] [place] [facility] [address] [id number] [place] [address]- 3766 Dec, [facility] [address] [id number] [place] [address]- 8856 Dec, [facility] [place] [facility] [address] [id number] [place] [address]- 5276 Dec, [facility] [address] [id number] [place] [id number] Dec, [facility] [place] [facility] [address] [id number] [place] [address]- 0526 Nov, [facility] [place] [facility] [address] [id number] [place] [address] 14 Nov, 2011 [facility] [address] [id number] [place] [address] Nov, [facility] [address] [id number] [place] [id number] Oct, [facility] [address] [id number] [id number] Oct, [facility] [address] [id number] [place] [address] Oct, [facility] [id number] [place] [id number] Sep, [facility] [address] [facility] [id number] [place] [address] Sep, [facility] [address] [facility] [id number] [place] [id number] Sep, [facility] [address] [facility] [id number] [place] [id number] Sep, [facility] [id number] [place] [address] Aug, [facility] [address] [id number] [address] Aug, [facility] [id number] [place] [address] Aug, [facility] [id number] [address] Aug, [facility] [address] [facility] [id number] [place] [address] Jul, [facility] [address] [facility] [id number] [address] Jul, [facility] [address] [facility] [id number] [place] [address] May, [facility] [address] [facility] [id number] [place] [address] January, [facility] [id number] [address] Dec, [facility] [address] [facility] [id number] [place] [address] Nov, [facility] [address] [facility] [id number] [place] [address] Aug, [facility] [id number] [address] Aug, [facility] [address] [facility] [id number] [place] [address] Aug, [facility] [address] [facility] [id number] [place] [address] Aug, [facility] [address] [id number] [address] Aug, [facility] [id number] [address] Aug, [facility] [id number] [address] Jun, [facility] [id number] [address] Jun, [facility] [id number] [address] Jun, [facility] [id number] [address] Jun, [facility] [id number] [address] Jun, [facility] [id number] [address] 14 May, 2010 [facility] [id number] [address] 10 May, 2010 IMMUNIZATIONS No Known Immunizations SOCIAL HISTORY Never Assessed REASON FOR VISIT CXR PLAN OF CARE VITAL SIGNS MEDICATIONS Unknown [...]
--- OUTSIDE RECORDS SUMMARY | 2019-01-13 10:14 | XMS REPORT ---
Author Author BRITTNEY ROMERO Organization [facility] Address [address] [place] [address] Care Team Providers Care Terrazzo Grinder Name Role Phone BRITTNEY ROMERO Unavailable PROBLEMS Type Condition ICD9-CM Code XYY85-UR Code Onset Dates Condition Status SNOMED Code Problem Enlarged thyroid E01.0 Active 65567182 Problem H/O breast augmentation Z98.82 Active 499506696 Problem COPD exacerbation J44.1 Active 431919001 Problem History of breast augmentation Z98.82 Active 505998352 Problem Decreased hearing of left ear H91.92 Active 510253579 Problem Chronic sinusitis, unspecified location J32.9 Active 93333005 Problem Chronic sinusitis of both maxillary sinuses J32.0 Active [id number] Problem Atelectasis J98.11 Active 15316614 Problem Severe persistent asthma with exacerbation J45.51 Active 699717609 Problem Primary osteoarthritis, left ankle and foot M19.072 Active 59100704 Problem Chronic obstructive pulmonary disease, unspecified J44.9 Active 606348041 Problem Primary osteoarthritis of right foot M19.071 Active 434280797 Problem Right wrist effusion M25.431 Active 681762891 Problem Arthritis of both hips M12.9 Active 29197377 Problem Hyperthyroidism E05.90 Active 06291690 Problem Essential hypertension I10 Active 92988198 Problem Atrial fibrillation, unspecified type I48.91 Active 38196134 Problem Depressive disorder, not elsewhere classified F32.9 Active 09771216 Problem Rosacea L71.9 Active 014012255 ALLERGIES Substance Reaction Event Type Date Status Sulfamethoxazole sores in mouth Drug Allergy Aug, Active Penicillin V Potassium hives Drug Allergy Aug, Active Clindamycin HCl hives Drug Allergy Aug, Active Bactrim DS Unknown Drug Allergy Aug, Active ENCOUNTERS Encounter Location Date Diagnosis [facility] [address] [id number] [id number] Mar, [address] [id number] January, [place] [id number] [place] [address] [id number] January, Breast tenderness in female N64.4 ; Atypical chest pain R07.89 and History of breast augmentation Z98.82 [place] [id number] [place] [address] [id number] Dec, Jaw pain R68.84 [address] [place] [address] [id number] Dec, [place] [id number] [place] [address] [id number] Dec, Chronic sinusitis, unspecified location J32.9 ; Swelling of left side of face R22.0 and Decreased hearing of left ear H91.92 [facility] [address] [id number], [place] [id number] Nov, Dental examination Z01.20 [address] [id number] Nov, Chronic obstructive pulmonary disease, unspecified J44.9 [address] [place] [address] [id number] Oct, Chronic obstructive pulmonary disease, unspecified J44.[address] [id number] [id number] Sep, [facility] [address] [id number] [id number] Sep, [address] [id number] [id number] Sep, Atelectasis J98.11 and Severe persistent asthma with exacerbation J45.51 [address] [place] [address] [id number] Sep, [address] [id number] Sep, Cough R05 ; Shortness of breath R06.02 ; Low oxygen saturation R79.81 ; Wheezing R06.2 ; Decreased breath sounds at right lung base R09.89 ; Fever, unspecified fever cause R50.9 and COPD exacerbation J44.1 [facility] [id number] [id number] Aug, Chronic sinusitis, unspecified location J32.9 and Acute mucoid otitis media of left ear H65.112 [place] [id number] [place] [address] [id number] Aug, Medial epicondylitis of left elbow M77.02 ; Chronic sinusitis of both maxillary sinuses J32.0 and History of sinus surgery Z98.890 [place] [id number] [place] [address] [id number] Jul, [place] [id number] [place] [address] [id number] Jul, [place] [id number] [place] [address] [id number] Jul, Atrial fibrillation, unspecified type I48.91 ; Enlarged thyroid E01.0 ; Hyperthyroidism E05.90 and Pre-diabetes R73.03 [address] [place] [address] [id number] Jul, Elevated blood sugar R73.9 [address] [place] [address] [id number] Jul, Atrial fibrillation, unspecified type I48.91 and Hyperthyroidism E05.90 [facility] [address]00565100[place] [address] Jul, Atrial fibrillation, unspecified type I48.91 and Hyperthyroidism E05.90 [address] [place] [address] [id number] Jun, Acute recurrent frontal sinusitis J01.11 [address] [place] [address] [id number] Jun, [address] [place] [address] [id number] 18 May, 2017 Screening breast examination Z12.31 and H/O breast augmentation Z98.82 [facility] [id number] [place] [address] [id number] May, [place] [id number] [place] [address] [id number] May, Nasal polyp J33.9 and Acute non-recurrent frontal sinusitis J01.10 [place] [id number] [place] [address] [id number] May, COPD exacerbation J44.1 [facility] [id number] [place] [address] [id number] Apr, [place] [id number] [place] [address] [id number] January, Enlarged thyroid E01.0 and COPD exacerbation J44.1 [place] [id number] [place] [address] [id number] January, Chronic obstructive pulmonary disease, unspecified J44.9 [place] [id number] [place] [address] [id number] Dec, [place] [id number] [place] [address] [id number] Dec, [place] [id number] [place] [address] [id number] Dec, Cough R05 ; Shortness of breath R06.02 ; Urinary frequency R35.0 and Chronic obstructive pulmonary disease, unspecified J44.9 [place] [id number] [place] [address] [id number] Nov, Bronchitis J40 and Cough R05 [place] [id number] [place] [address] [id number] Aug, Pain of left hand M79.642 ; Atrial fibrillation, unspecified type I48.91 and Screening for hyperlipidemia Z13.220 [place] [id number] [place] [address] [id number] Aug, [place] [id number] [place] [address] [id number] Aug, Pain of left foot M79.672 ; Pain in right foot M79.671 ; Pain of left hand M79.642 ; Pain in right hand M79.641 ; Screening for hyperlipidemia Z13.220 and Atrial fibrillation, unspecified type I48.91 [facility] [address] [id number] Jul, Rash R21 ; Arthritis of both hips M12.9 ; Depressive disorder, not elsewhere classified F32.9 ; Atrial fibrillation, unspecified type I48.91 ; Hyperthyroidism E05.90 and Chronic obstructive pulmonary disease, unspecified J44.9 [facility] [address] [address] Jun, [facility] [address] [address] Jun, Rosacea L71.[address] [id number] Jun, Rosacea L71.9 and Oral herpes simplex infection B00.[address] [id number] Jun, Rash R21 [address] [id number] Jun, Asthma exacerbation J45.[address] [id number] Apr, [address] [id number] Apr, Acute diffuse otitis externa of right ear H60.311 and Rash R21 [facility] [id number] [place] [address] Feb, Rash R21 [facility] [address] [address]- [address] Feb, [facility] [address] [id number] January, Hyperthyroidism E05.[address] [id number] January, Atrial fibrillation, unspecified type I48.91 and Hyperthyroidism E05.90 [facility] [address]005[address], [place] [address] January, [facility] [id number] [place] [address] [id number] January, Atrial fibrillation, unspecified type I48.91 [facility] [id number], [place] [id number] Dec, Asthma exacerbation J45.901 [facility] [id number] [place] [address] [id number] Dec, [facility] [id number] [place] [address] [id number] Oct, Acute maxillary sinusitis, recurrence not specified J01.00 and Acute cystitis with hematuria N30.01 [facility] [id number] [place] [address] [id number] Oct, Sinusitis J32.9 [place] [id number] [place] [address] [id number] Sep, Chronic obstructive pulmonary disease, unspecified J44.9 ; Depressive disorder, not elsewhere classified F32.9 ; Arthritis of both hips M12.9 and Essential hypertension I10 [place] [address] [facility] [address] [id number] [id number] Sep, [facility] [id number], [place] [id number] Sep, [address], [place] [id number] Sep, Right hip pain M25.551 [facility] [id number] [place] [address] [id number] Sep, [facility] [id number] [place] [address] [id number] Sep, [address] [place] [address] [id number] Sep, Hemoptysis R04.2 ; Pain in right hip M25.551 and Pain in left hip M25.552 [address] [place] [address] [id number] Aug, [facility] [address] [place] [id number] [id number] Aug, Sinusitis J32.9 ; Cough R05 and Wheezing R06.2 [facility] [address] [id number] [id number] May, [facility] [id number], [place] [id number] May, [place] [id number], [place] [id number] May, [address], [place] [id number] Apr, Chronic airway obstruction, not elsewhere classified [address] [place] [id number] [place] [address] [id number] Apr, [address] [place] [address] [id number] Apr, Bronchitis, chronic obstructive, with exacerbation 491.21 [address] [place] [address] [id number] Mar, [address] [id number] Mar, Asthma, unspecified, with (acute) exacerbation 493.92 and Rhinitis 472.0 [address], [place] [id number] Feb, [address], [place] [id number] Feb, [address] [id number] Feb, Pituitary incidentaloma 227.3 and Abnormal MRI of the head 793.0 [address] [place] [address] [id number] Feb, [address] [place] [address] [id number] January, Muscle weakness of lower extremity 728.87 ; Abnormal involuntary movements 781.0 ; Unspecified otitis media 382.9 and Other general symptoms 780.99 [place] [address] [id number] January, Acute sinusitis, unspecified 461.9 and Muscle weakness of lower extremity 728.87 [facility] [id number] [place] [address] [id number] January, Bronchitis 490 and Cough 786.2 [facility] [place] [address] [facility] [facility] [id number], [place] [id number] Dec, [facility] [id number] [place] [address] [id number] Dec, [facility] [id number] [place] [address] [id number] Dec, [facility] [id number] [place] [address] 889618- 8546 Dec, [facility] [id number] [place] [address] 99243- 7722 Dec, [facility] [id number] [place] [address] 34596- 4503 Oct, [facility] [id number] [place] [address] 07393- 6019 Oct, [facility] [id number] [place] [address] 33344- 2742 Oct, [facility] [id number] [place] [address] 11522- 2101 Oct, [facility] [id number] [place] [address] [id number]- 5588 Oct, [facility] [id number] [place] [address] [id number]- 9846 Oct, [facility] [id number] [place] [address] [id number]- 5213 Oct, [facility] [id number], [place] [id number] Oct, [facility] [address] [id number] [place] [address] 23423- 6497 Oct, [facility] [place] [facility] [address] [facility] [id number], [place] [address]- 7362 Oct, [facility] [place] [facility] [address] [facility] [id number], [place] [address]- 4642 Oct, [facility] [address] [facility] [id number], [place] [id number] Aug, [facility] [place] [facility] [address] [facility] [id number][place] [address]- 1531 Aug, [facility] [address] [facility] [id number], [place] [id number] Jul, [facility] [place] [facility] [address]00565100[place], [place] [address]- 5012 Jul, [facility] [place] [facility] [address]00565100[place], [place] [address]- 3539 Jun, [facility] [address] [facility] [id number], [place] [id number] Jun, [facility] [place] [facility] [address] [place] [address] [id number], [place] [address]- 3562 Jun, [facility] [address] [facility] [id number], [place] [id number] Jun, [facility] [place] [facility] [address]00565100[place], [place] [address]- 8222 Jun, [facility] [address] [facility] [id number], [place] [id number] May, [facility] [place] [facility] [address] [facility] [id number], [place] [address]- 9144 May, [facility] [address] [facility] [id number], [place] [id number] May, [facility] [place] [facility] [address] [facility] [id number], [place] [address]- 2722 May, [facility] [address] [facility] [id number], [place] [id number] May, [facility] [place] [facility] [address] [id number] [place] [address]- 2546 May, [facility] [address] [facility] [id number] [place] [address]- 2546 Mar, [facility] [address] [facility] [id number] [place] [address]- 2546 Mar, [facility] [address] [facility] [id number], [place] [id number] January, [facility] [address] [id number] [place] [address]- 2546 January, [facility] [address] [id number] [place] [id number] Oct, [facility] [address] [facility] [id number] [place] [address]- 2546 Oct, [facility] [address] [id number], [place] [address]- 2546 Jul, [facility] [place] [facility] [address] [facility] [id number], [place] [address]- 2546 Jun, [facility] [place] [facility] [address] [facility] [id number] [place] [address]- 2546 Jun, [facility] [place] [facility] [address] [facility] [id number] [place] [address]- 2546 May, [facility] [place] [facility] [address] [facility] [id number] [place] [address]- 2546 May, [facility] [place] [facility] [address] [facility] [id number], [place] [address]- 2546 Apr, [facility] [place] [facility] [address] [id number] [place] [address]- 2546 Apr, [facility] [place] [facility] [address] [facility] [id number] [place] [address]- 2546 Mar, [facility] [place] [facility] [address] [facility] [id number] [place] [address]- 2546 Feb, [facility] [place] [facility] [address] [id number] [place] [address]- 5067 Nov, [facility] [place] [facility] [address] [id number] [place] [address]- 4956 Oct, [facility] [place] [facility] [address] [id number] [place] [address]- 6036 Oct, [facility] [place] [facility] [address] [id number] [place] [address]- 1606 Oct, [facility] [place] [facility] [address] [id number] [place] [address]- 7976 Oct, [facility] [place] [facility] [address] [id number] [place] [address]- 6877 Oct, [facility] [address] [id number] [place] [address]- 1621 Sep, [facility] [address] [id number] [place] [address]- 7384 Sep, [facility] [address] [id number] [place] [address]- 0692 Jul, [facility] [address] [id number], [place] [address]- 4074 Jul, [facility] [address] [id number] [place] [address]- 8052 17 May, 2012 [facility] [address] [id number], [place] [address]- 6084 06 May, [address] [facility] [address] [id number], [place] [id number] 05 May, 2012 [facility] [place] [facility] [address] [id number] [place] [address]- 6586 04 May, 2012 [facility] [place] [facility] [address] [id number], [place] [address]- 9088 May, [facility] [place] [facility] [address] [id number], [place] [address]- 8448 May, [facility] [address] [id number] [place] [address]- 2546 Apr, [facility] [address] [id number] [place] [address]- 2546 Apr, [facility] [address] [id number] [place] [address]- 2546 Apr, [facility] [address] [id number] [place] [address]- 2546 Mar, [facility] [address] [id number] [place] [address]- 2546 Mar, [facility] [address] [id number] [place] [address]- 2546 Mar, [facility] [address] [id number], [place] [address]- 2546 Mar, [facility] [address] [id number], [place] [address]- 2546 Feb, [facility] [address] [id number], [place] 329182432 Feb, [facility] [address] [facility] [id number], [place] [address]- 2546 Feb, [facility] [address] [id number], [place] 954155677 Feb, [facility] [place] [facility] [address] [id number], [place] [address]- 2546 Feb, [facility] [address] [id number], [place] [address]- 2546 Feb, [facility] [address] [id number], [place] [id number] January, [facility] [address] [id number], [place] [address]- 2546 January, [facility] [address] [id number], [place] [id number] January, [facility] [address] [id number] [place] [address]- 8566 January, [facility] [address] [id number], [place] 613979777 January, [facility] [address] [id number] [place] [address]- 2666 January, [facility] [address] [id number], [place] [address]- 3726 January, [facility] [address] [id number] [place] [address]- 7670 January, [facility] [address] [id number], [place] [address]- 9806 Dec, [facility] [address] [id number], [place] [address]- 7266 Dec, [facility] [address] [id number], [place] [address]- 2142 Dec, [facility] [address] [id number], [place] [address]- 4693 Dec, [facility] [address] [id number], [place] [address]- 2186 Dec, [facility] [address] [facility] [id number], [place] [id number] Dec, [facility] [address] [id number], [place] [address]- 0286 Nov, [facility] [address] [id number], [place] [address]- 5676 Nov, [facility] [address] [id number], [place] [address]- 2546 Nov, [facility] [place] [facility] [address] [id number], [place] [id number] Oct, [facility] [address] [id number], [place] 782180679 Oct, [facility] [address] [facility] [id number], [place] [address]- 2546 Oct, [facility] [address] [id number] [place] [id number] Sep, [facility] [address] [facility] [id number], [place] [address]- 2546 Sep, [facility] [address] [id number], [place] [id number] Sep, [facility] [address] [id number] [place] [id number] Sep, [facility] [address] [facility] [id number] [place] [address] Aug, [facility] [id number], [place] [address] Aug, [facility] [address] [id number], [place] [address] Aug, [facility] [address] [id number], [place] [address] Aug, [facility] [id number], [place] [address] Jul, [facility] [id number], [place] [address] Jul, [facility] [address] [facility] [id number], [place] [address] May, [facility] [address] [facility] [id number], [place] [address] January, [facility] [address] [facility] [id number], [place] [address] Dec, [facility] [address] [id number], [place] [address] Nov, [facility] [address] [facility] [id number], [place] [address] Aug, [facility] [address] [facility] [id number], [place] [address] Aug, [facility] [address] [facility] [id number][place] [address] Aug, [facility] [address] [facility] [id number], [place] [address] Aug, [facility] [address] [facility] [id number] [address] Aug, [facility] [address] [facility] [id number], [place] [address] Aug, [facility] [address] [facility] [id number], [place] [address] Jun, [facility] [id number], [place] [address] Jun, [facility] [id number], [place] [address] Jun, [facility] [id number], [place] [address] Jun, [facility] [id number], [place] [address] Jun, [facility] [address] [id number], [place] [address] 14 May, 2010 [facility] [id number], [place] [address] 10 May, 2010 IMMUNIZATIONS No Known Immunizations SOCIAL HISTORY Never Assessed REASON FOR VISIT Pt c/o left 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 [employer] PLAN OF CARE Activity Details Follow Up prn if not improving Reason: VITAL SIGNS Height 62 in 2017-09-11 Weight 204.4 lbs 2017-09-11 Temperature 98.4 degrees Fahrenheit 2017-09-11 Heart Rate 70 bpm 2017-09-11 Respiratory Rate 16 2017-09-11 BMI 37.38 kg/m2 2017-09-11 Blood pressure systolic 120 mmHg 2017-09-11 Blood pressure diastolic 70 mmHg 2017-09-11 MEDICATIONS Medication Instructions Dosage Frequency Start Date End Date Duration Status Advair Diskus 500-50 MCG/DOSE Inhalation Twice a day 1 puff 12h Oct, Active Albuterol Sulfate 2.5 mg /3 mL (0.083 %) 1 Each by Inhalation route every 6 hours for cough and wheezePRNfor wheezing or cough Sep, Active EPINEPHrine 0.3 mg/0.3 mL 0.3 mg by Intramuscular route 1 time per dayPRNfor anyphylaxis Feb, Active Metoprolol Succinate ER 100 MG Orally Once a day 1 tablet 24h Active Mobic 7.5 MG Orally 2 times a day 1 tablet 12h Aug, Aug, 0 days Active ProAir HFA 108 (90 Base) MCG/ACT INHALE 2 PUFFS NEEDED 4 TIMES A DAY 25 Active Fluoxetine HCl 20 MG TAKE 1 CAPSULE ONCE A DAY ORALLY 30 Active Atrovent HFA 17 MCG/ACT Inhalation Four times a day 2 puffs 6h Active Sudafed 60 mg Orally every 6 hrs 1 tablet as needed 6h May, Active ZyrTEC 10 mg 1 tablet by Oral route 1 time per day Dec, Active Eliquis 5 mg Orally 2 times a day 1 tablet 12h January, Active Benadryl Allergy 25 MG Orally every 6 hrs 1 tablet as needed 6h Active Tapazole 5 mg Orally Once a day 4 tablet with food 24h Active Fluoxetine 20 mg 1 capsule Once a day orally Active Singulair 10 mg 1 tablet by Oral route 1 time per day for 30 days Jun, Active Cardizem CD 180 MG Orally Once a day 1 capsule 24h January, Active Flonase 50 MCG/ACT Nasally 2 times a day 1 spray in each nostril 12h Active RESULTS No Results PROCEDURES No Known [...]
--- OUTSIDE RECORDS SUMMARY | 2019-01-13 10:14 | XMS REPORT ---
Author Author BRITTNEY ROMERO Organization [facility] Address [address] [place] [address] Care Team Providers Care Food Preservation Scientist Name Role Phone BRITTNEY ROMERO Unavailable PROBLEMS Type Condition ICD9-CM Code [id number] Code Onset Dates Condition Status SNOMED Code Problem Rosacea L71.9 Active 129758185 Problem Enlarged thyroid E01.0 Active 06113526 Problem COPD exacerbation J44.1 Active 835701257 Problem Decreased hearing of left ear H91.92 Active 222413335 Problem Severe persistent asthma with exacerbation J45.51 Active 793572834 Problem Chronic sinusitis of both maxillary sinuses J32.0 Active [id number] Problem H/O breast augmentation Z98.82 Active 304427798 Problem Atelectasis J98.11 Active 16668139 Problem Chronic sinusitis, unspecified location J32.9 Active 32291878 Problem Right wrist effusion M25.431 Active 177104307 Problem Primary osteoarthritis, left ankle and foot M19.072 Active 03119980 Problem Primary osteoarthritis of right foot M19.071 Active 134600181 Problem Depressive disorder, not elsewhere classified F32.9 Active 17948701 Problem Arthritis of both hips M12.9 Active 84824348 Problem Chronic obstructive pulmonary disease, unspecified J44.9 Active 031902954 Problem Hyperthyroidism E05.90 Active 31023747 Problem Essential hypertension I10 Active 38066303 Problem Atrial fibrillation, unspecified type I48.91 Active [id number] ALLERGIES No Information ENCOUNTERS Encounter Location Date Diagnosis [place] [address] [facility] [id number] [id number] Dec, Jaw pain R68.84 [place] [address] [facility] [id number][place] [id number] Dec, [id number] [id number] Dec, Chronic sinusitis, unspecified location J32.9 ; Swelling of left side of face R22.0 and Decreased hearing of left ear H91.92 [facility] [address] [id number] [id number] Nov, Dental examination Z01.20 [address]00565100[place] [id number] Nov, Chronic obstructive pulmonary disease, unspecified J44.9 [place] [id number] [place] [address] [id number] Oct, Chronic obstructive pulmonary disease, unspecified J44.[address] [id number][place] [id number] Sep, [facility] [address] [id number][place] [id number] Sep, [facility] [address] [place] [address] [id number] Sep, Atelectasis J98.11 and Severe persistent asthma with exacerbation J45.51 [address] [place] [address] [id number] Sep, [place] [id number] [place] [address] [id number] Sep, Cough R05 ; Shortness of breath R06.02 ; Low oxygen saturation R79.81 ; Wheezing R06.2 ; Decreased breath sounds at right lung base R09.89 ; Fever, unspecified fever cause R50.9 and COPD exacerbation J44.1 [facility] [address] [id number][place] [address] Aug, Chronic sinusitis, unspecified location J32.9 and Acute mucoid otitis media of left ear H65.[address] [place] [address] [id number] Aug, Medial epicondylitis of left elbow M77.02 ; Chronic sinusitis of both maxillary sinuses J32.0 and History of sinus surgery Z98.890 [place] [id number] [place] [address] [id number] Jul, [facility] [id number][place] [address] Jul, [place] [id number] [place] [address] [id number] Jul, Atrial fibrillation, unspecified type I48.91 ; Enlarged thyroid E01.0 ; Hyperthyroidism E05.90 and Pre-diabetes R73.[address] [place] [address] [id number] Jul, Elevated blood sugar R73.9 [address] [place] [address] [id number] Jul, Atrial fibrillation, unspecified type I48.91 and Hyperthyroidism E05.90 [facility] [address]00565100[place] [address] Jul, Atrial fibrillation, unspecified type I48.91 and Hyperthyroidism E05.90 [address] [place] [address] [id number] Jun, Acute recurrent frontal sinusitis J01.11 [address] [place] [address] [id number] Jun, [place] [id number] [place] [address] [id number] May, Screening breast examination Z12.31 and H/O breast augmentation Z98.82 [address] [place] [address] [id number] May, [place] [id number] [place] [address] [id number] May, Nasal polyp J33.9 and Acute non-recurrent frontal sinusitis J01.[address] [place] [address] [id number] May, COPD exacerbation J44.1 [address] [place] [address] [id number] Apr, [address] [place] [address] [id number] January, Enlarged thyroid E01.0 and COPD exacerbation J44.1 [place] [id number] [place] [address] [id number] January, Chronic obstructive pulmonary disease, unspecified J44.[address] [id number] Dec, [address] [id number] Dec, [address] [id number] Dec, Cough R05 ; Shortness of breath R06.02 ; Urinary frequency R35.0 and Chronic obstructive pulmonary disease, unspecified J44.[address] [id number] Nov, Bronchitis J40 and Cough R05 [address] [id number] Aug, Pain of left hand M79.642 ; Atrial fibrillation, unspecified type I48.91 and Screening for hyperlipidemia Z13.220 [place] [id number] [place] [address] [id number] Aug, [place] [id number] [place] [address] [id number] Aug, Pain of left foot M79.672 ; Pain in right foot M79.671 ; Pain of left hand M79.642 ; Pain in right hand M79.641 ; Screening for hyperlipidemia Z13.220 and Atrial fibrillation, unspecified type I48.91 [place] [id number] [place] [address] [id number] Jul, Rash R21 ; Arthritis of both hips M12.9 ; Depressive disorder, not elsewhere classified F32.9 ; Atrial fibrillation, unspecified type I48.91 ; Hyperthyroidism E05.90 and Chronic obstructive pulmonary disease, unspecified J44.9 [facility] [id number] [place] [address] Jun, [facility] [address] [address] Jun, Rosacea L71.9 [facility] [id number] [place] [address] [id number] Jun, Rosacea L71.9 and Oral herpes simplex infection B00.2 [facility] [address] [id number] Jun, Rash R21 [facility] [address] [id number] Jun, Asthma exacerbation J45.901 [facility] [address] [id number] Apr, [facility] [address] [id number] Apr, Acute diffuse otitis externa of right ear H60.311 and Rash R21 [facility] [address] [address] Feb, Rash R21 [facility] [address] [address] Feb, [facility] [address] [id number] [place] [address] [id number] January, Hyperthyroidism E05.[address] [id number] January, Atrial fibrillation, unspecified type I48.91 and Hyperthyroidism E05.90 [facility] [address] [address] January, [facility] [address] [address] [id number] [place] [address] [id number] January, Atrial fibrillation, unspecified type I48.91 [facility] [id number] [place] [address] [id number] Dec, Asthma exacerbation J45.901 [facility] [id number] [place] [address] [id number] Dec, [facility] [id number] [place] [address] [id number] Oct, Acute maxillary sinusitis, recurrence not specified J01.00 and Acute cystitis with hematuria N30.01 [facility] [id number] [address] Oct, Sinusitis J32.9 [facility] [id number] [place] [address] [id number] Sep, Chronic obstructive pulmonary disease, unspecified J44.9 ; Depressive disorder, not elsewhere classified F32.9 ; Arthritis of both hips M12.9 and Essential hypertension I10 [place] [address]00565[place] [id number] Sep, [facility] [id number] [place] [address] [id number] Sep, [facility] [id number] [place] [address] [id number] Sep, Right hip pain M25.551 [facility] [id number] [place] [address] [id number] Sep, [facility] [id number] [place] [address] [id number] Sep, [facility] [address] [id number] [place] [address] [id number] Sep, Hemoptysis R04.2 ; Pain in right hip M25.551 and Pain in left hip M25.552 [facility] [id number] [place] [address] [id number] Aug, [facility] [id number][place] [id number] Aug, Sinusitis J32.9 ; Cough R05 and Wheezing R06.2 [facility] [address] [place] [id number] [id number] May, [facility] [id number] [place] [address] [id number] May, [facility] [id number], [place] [id number] May, [facility] [id number] [place] [address] [id number] Apr, Chronic airway obstruction, not elsewhere classified [address] [facility]00565[place] [id number] Apr, [address] [place] [address] [id number] Apr, Bronchitis, chronic obstructive, with exacerbation 491.21 [facility] [id number] [place] [address] [id number] Mar, [place] [id number] [place] [address] [id number] Mar, Asthma, unspecified, with (acute) exacerbation 493.92 and Rhinitis 472.0 [address] [place] [address] [id number] Feb, [place] [id number] [place] [address] [id number] Feb, [address] [place] [address] [id number] Feb, Pituitary incidentaloma 227.3 and Abnormal MRI of the head 793.0 [address] [place] [address] [id number] Feb, [address] [place] [address] [id number] January, Muscle weakness of lower extremity 728.87 ; Abnormal involuntary movements 781.0 ; Unspecified otitis media 382.9 and Other general symptoms 780.99 [address] [place] [address] [id number] January, Acute sinusitis, unspecified 461.9 and Muscle weakness of lower extremity 728.87 [address]00565100[place] [id number] January, Bronchitis 490 and Cough 786.2 [facility] [address] [facility] [id number] [id number] Dec, [id number] [place] [address] [id number] Dec, [address] [id number], [place] [id number] Dec, [facility] [address]00565100[place], [place] [address] 14 Dec, 2014 [facility] [place] [facility] [address] [facility] [id number][place] [address] Dec, [facility] [place] [facility] [address] [facility] [id number][place] [address]- 9259 Oct, 2014 [facility] [place] [facility] [address] [facility] [id number][place] [address]- 3667 Oct, 2014 [facility] [place] [facility] [address] [facility] [id number][place] [address]- 4097 Oct, 2014 [facility] [place] [facility] [address] [facility] [id number] [place] [address]- 9407 Oct, 2014 [facility] [place] [facility] [address] [facility] [id number][place] [address]- 34[address] Oct, 2014 [facility] [place] [facility] [address] [facility] [id number][place] [address]- 1415 Oct, 2014 [facility] [place] [facility] [address] [facility] [id number][place] [address]- 0347 Oct, 2014 [facility] [address] [facility] [id number], [place] [id number] Oct, 2014 [facility] [place] [facility] [address] [facility] [id number][place] [address]- 7271 Oct, 2014 [facility] [place] [facility] [address] [facility] [id number][place] [address]- 2005 Oct, 2014 [facility] [place] [facility] [address] [facility] [id number][place] [address]- 3395 Oct, 2014 [facility] [address] [facility] [id number], [place] [id number] Aug, [facility] [place] [facility] [address] [facility] [id number][place] [address]- 9296 Aug, [facility] [address] [facility] [id number][place] [id number] Jul, [facility] [place] [facility] [address] [facility] [id number][place] [address]- 8513 Jul, [facility] [address] [facility] [id number][place] [address] Jun, [facility] [address] [facility] [id number], [place] [id number] Jun, [facility] [place] [facility] [address] [facility] [id number][place] [address]- 0623 Jun, [facility] [address] [facility] [id number], [place] [id number] Jun, [facility] [place] [facility] [address] [facility] [id number][place] [address]- 6567 Jun, [facility] [address] [facility] [id number], [place] [id number] May, [facility] [place] [facility] [address]00565100[place], [place] [address]- 94[address] May, [facility] [address] [facility] [id number], [place] [id number] May, [facility] [place] [facility] [address] [place] [id number], [place] [address]- 7304 May, [facility] [address] [facility] [id number], [place] [id number] May, [facility] [place] [facility] [address] [facility] [id number], [place] [address]- 0645 May, [facility] [place] [facility] [address]00565100[place], [place] [address]- 3440 Mar, [facility] [place] [facility] [address] [facility] [id number], [place] [address]- 4210 Mar, [facility] [address] [facility] [id number], [place] [id number] January, [facility] [place] [facility] [address] [facility] [id number], [place] [address]- 2274 January, [facility] [address] [facility] [id number], [place] [id number] Oct, [facility] [place] [facility] [address] [id number] [place] [address]- 1084 Oct, [facility] [place] [facility] [address] [id number] [place] [address]- 7436 Jul, [facility] [place] [facility] [address] [id number] [place] 7053 Jun, [facility] [place] [facility] [address] [id number] [place] [address]- 2508 Jun, [facility] [place] [facility] [address] [id number] [place] [address]- 5187 May, [facility] [place] [facility] [address] [id number] [place] [address]- 3582 May, [facility] [place] [facility] [address] [facility] [id number] [place] [address]- 3665 Apr, [facility] [place] [facility] [address] [facility] [id number] [place] [address]- 2961 Apr, [facility] [place] [facility] [address] [id number] [place] [address]- 4166 Mar, [facility] [place] [facility] [address] [facility] [id number] [place] [address]- 9473 Feb, [facility] [place] [facility] [address] [facility] [id number] [place] [address]- 4699 Nov, [facility] [place] [facility] [address] [id number], [place] [address]- 2936 Oct, [facility] [place] [facility] [address] [id number] [place] [address]- 7333 Oct, [facility] [place] [facility] [address] [id number] [place] [address]- 8010 Oct, [facility] [place] [facility] [address] [facility] [id number] [place]- 1407 Oct, [facility] [place] [facility] [address] [facility] [id number][place] [address]- 2546 Oct, [facility] [place] [facility] [address] [id number] [place] [address]- 2546 Sep, [facility] [place] [facility] [address] [id number] [place] [address]- 2546 Sep, [facility] [place] [facility] [address] [id number] [place] [address]- 2546 Jul, [facility] [place] [facility] [address] [id number] [place] [address]- 2546 Jul, [facility] [place] [facility] [address] [id number] [place] [address]- 2366 May, [facility] [place] [facility] [address] [facility] [id number] [place] [address]- 2546 May, [facility] [id number] [id number] 05 May, 2012 [facility] [place] [facility] [address] [id number] [place] [address]- 2590 May, [facility] [place] [facility] [address] [id number] [place] [address]- 8178 May, [facility] [place] [facility] [address] [place] [id number] [address]- 4546 May, [facility] [place] [facility] [address] [id number] [place] [address]- 2556 Apr, [facility] [place] [facility] [address] [id number], [place] [address]- 2546 Apr, [facility] [place] [facility] [address] [id number] [place] [address]- 2546 Apr, [facility] [place] [facility] [address] [id number] [place] [address]- 2546 Mar, [facility] [place] [facility] [address] [id number] [place] [address]- 2546 Mar, [facility] [place] [facility] [address] [id number], [place] [address]- 2546 Mar, [facility] [address] [id number] [place] [address]- 2546 Mar, [facility] [place] [facility] [address] [id number] [place] [address]- 2546 Feb, [facility] [place] [facility] [address] [id number], [place] [id number] Feb, [facility] [place] [facility] [address] [id number][place] [address]- 2546 Feb, [facility] [place] [facility] [address] [id number], [place] [id number] Feb, [facility] [place] [facility] [address] [id number], [place] [address]- 2546 Feb, [facility] [address] [id number][place] [address]- 2546 Feb, [facility] [address] [facility] [address] [id number][place] [id number] January, [facility] [place] [facility] [address] [id number] [place] [address]- 2546 January, [facility] [place] [facility] [address] [id number], [place] [id number] January, [facility] [place] [facility] [address] [id number][place] [address]- 2546 January, [facility] [place] [facility] [address] [id number], [place] [id number] January, [facility] [place] [facility] [address] [id number] [place] [address]- 2546 January, [facility] [place] [facility] [address] [id number] [place] [address]- 2546 January, [facility] [place] [facility] [address] [id number] [place] [address]- 2546 January, [facility] [place] [facility] [address] [facility] [id number], [place] [address]- 1546 Dec, [facility] [address] [facility] [id number], [place] [address]- 4896 Dec, [facility] [place] [facility] [address] [facility] [id number], [place] [address]- 1336 Dec, [facility] [address] [facility] [id number], [place] [address]- 0432 Dec, [facility] [place] [facility] [address] [facility] [id number], [place] [address]- 9307 Dec, [facility] [address] [facility] [id number], [place] [id number] Dec, [facility] [place] [facility] [address] [facility] [id number], [place] [address]- 4376 Nov, [facility] [address]00565100[place], [place] [address]- 7086 Nov, [facility] [address] [facility] [id number][place] [address]- 2546 Nov, [facility] [place] [facility] [address]00565100[place], [place] [id number] Oct, [facility] [place] [facility] [address]00565100[place], [place] [id number] Oct, [facility] [place] [facility] [address] [facility] [id number], [place] [address]- 2546 Oct, [facility] [address] [facility] [id number], [place] [id number] Sep, [facility] [place] [facility] [address] [id number][place] [address]- 2546 Sep, [facility] [address] [id number], [place] [id number] Sep, [facility] [address] [facility] [id number], [place] [id number] Sep, [facility] [place] [facility] [address] [facility] [id number], [place] [address]- 4368 Aug, [facility] [address] [id number] [place] 0854 Aug, [facility] [place] [facility] [address] [id number] [place] [address]- 1066 Aug, [facility] [place] [facility] [address] [id number] [place] [address]- 8116 Aug, [facility] [place] [facility] [address] [id number] [place] [address] Jul, [facility] [place] [facility] [address] [id number] [place] [address] Jul, [facility] [place] [facility] [address] [id number] [place] [address] May, [facility] [place] [facility] [address] [id number] [place] [address] January, [facility] [place] [facility] [address] [id number] [place] [address] Dec, [facility] [place] [facility] [address] [id number] [place] [address] Nov, [facility] [place] [facility] [address] [id number] [place] [address] Aug, [facility] [place] [facility] [address] [id number] [place] [address] Aug, [facility] [place] [facility] [address] [id number] [place] [address] 10 Aug, 2010 [facility] [place] [facility] [address] [id number] [place] [address] Aug, [facility] [place] [facility] [address] [id number] [place] [address] Aug, [facility] [place] [facility] [address] [id number] [place] [address] Aug, [facility] [place] [facility] [address] [id number] [place] [address] Jun, [facility] [address] [id number] [address] Jun, [facility] [address] [id number] [address] Jun, [facility] [address] [id number] [address] Jun, [facility] [address] [id number] [address] Jun, [facility] [address] [id number] [address] 14 May, 2010 [facility] [address] [id number] [address] 10 May, 2010 IMMUNIZATIONS No Known Immunizations SOCIAL HISTORY Never Assessed REASON FOR VISIT ER Notification/Follow up PLAN OF CARE VITAL SIGNS MEDICATIONS Unknown [...]
--- OUTSIDE RECORDS SUMMARY | 2019-01-13 10:15 | XMS REPORT ---
Author Author JR CASAS [facility] Address [address] [place] [address] Care Team Providers Care Health Spa Manager Name Role Phone JR CASAS Unavailable PROBLEMS Type Condition ICD9-CM Code HBN76-JY Code Onset Dates Condition Status SNOMED Code Problem Enlarged thyroid E01.0 Active 31850694 Problem H/O breast augmentation Z98.82 Active 465206834 Problem COPD exacerbation J44.1 Active 794533260 Problem History of breast augmentation Z98.82 Active 291753581 Problem Decreased hearing of left ear H91.92 Active 411919562 Problem Chronic sinusitis, unspecified location J32.9 Active 94604316 Problem Chronic sinusitis of both maxillary sinuses J32.0 Active [id number] Problem Atelectasis J98.11 Active 41475860 Problem Severe persistent asthma with exacerbation J45.51 Active 586951260 Problem Primary osteoarthritis, left ankle and foot M19.072 Active 69621423 Problem Chronic obstructive pulmonary disease, unspecified J44.9 Active 084512691 Problem Primary osteoarthritis of right foot M19.071 Active 149888399 Problem Right wrist effusion M25.431 Active 558701953 Problem Arthritis of both hips M12.9 Active 08888116 Problem Hyperthyroidism E05.90 Active 29094558 Problem Essential hypertension I10 Active 63825918 Problem Atrial fibrillation, unspecified type I48.91 Active 42754377 Problem Depressive disorder, not elsewhere classified F32.9 Active 60588968 Problem Rosacea L71.9 Active 311061800 ALLERGIES Substance Reaction Event Type Date Status Sulfamethoxazole sores in mouth Drug Allergy Aug, Active Penicillin V Potassium hives Drug Allergy Aug, Active Clindamycin HCl hives Drug Allergy Aug, Active Bactrim DS Unknown Drug Allergy Aug, Active ENCOUNTERS Encounter Location Date Diagnosis [place] [id number] [facility] [address] [id number] [id number] Mar, [address] [id number] January, [place] [id number] [place] [address] [id number] January, Breast tenderness in female N64.4 ; Atypical chest pain R07.89 and History of breast augmentation Z98.82 [place] [id number] [place] [address] [id number] Dec, Jaw pain R68.84 [place] [id number] [place] [address] [id number] Dec, [place] [address] [place] [address] [id number] Dec, Chronic sinusitis, unspecified location J32.9 ; Swelling of left side of face R22.0 and Decreased hearing of left ear H91.92 [facility] [address] [place] [address] [id number] [id number] Nov, Dental examination Z01.[address] [place] [address] [id number] Nov, Chronic obstructive pulmonary disease, unspecified J44.9 [place] [id number] [place] [address] [id number] Oct, Chronic obstructive pulmonary disease, unspecified J44.9 [facility] [place] [id number] [facility] [id number] [id number] Sep, [facility] [address] [facility] [address] [id number] [id number] Sep, [facility] [address] [facility] [address] [id number] [id number] Sep, Atelectasis J98.11 and Severe persistent asthma with exacerbation J45.[address] [place] [address] [id number] Sep, [address] [id number] Sep, Cough R05 ; Shortness of breath R06.02 ; Low oxygen saturation R79.81 ; Wheezing R06.2 ; Decreased breath sounds at right lung base R09.89 ; Fever, unspecified fever cause R50.9 and COPD exacerbation J44.1 [facility] [place] [address] [facility] [address] [id number][place] [id number] Aug, Chronic sinusitis, unspecified location J32.9 and Acute mucoid otitis media of left ear H65.112 [place] [address] [place] [address] [id number] Aug, Medial epicondylitis of left elbow M77.02 ; Chronic sinusitis of both maxillary sinuses J32.0 and History of sinus surgery Z98.890 [place] [address] [place] [address] [id number] Jul, [place] [address] [place] [address] [id number] Jul, [place] [address] [place] [address] [id number] Jul, Atrial fibrillation, unspecified type I48.91 ; Enlarged thyroid E01.0 ; Hyperthyroidism E05.90 and Pre-diabetes R73.[address] [place] [address] [id number] Jul, Elevated blood sugar R73.[address] [place] [address] [id number] Jul, Atrial fibrillation, unspecified type I48.91 and Hyperthyroidism E05.90 [facility] [address]00565100[place] [address] Jul, Atrial fibrillation, unspecified type I48.91 and Hyperthyroidism E05.[address] [place] [address] [id number] Jun, Acute recurrent frontal sinusitis J01.[address] [place] [address] [id number] Jun, [place] [address] [place] [address] [id number] 18 May, 2017 Screening breast examination Z12.31 and H/O breast augmentation Z98.82 [facility] [id number] [place] [address] [id number] May, [place] [address] [place] [address] [id number] May, Nasal polyp J33.9 and Acute non-recurrent frontal sinusitis J01.10 [place] [address] [place] [id number] [place] [address] [id number] May, COPD exacerbation J44.1 [facility] [address] [id number] Apr, [place] [address] [place] [address] [id number] January, Enlarged thyroid E01.0 and COPD exacerbation J44.1 [place] [address] [place] [address] [id number] January, Chronic obstructive pulmonary disease, unspecified J44.9 [place] [address] [place] [address] [id number] Dec, [place] [address] [place] [address] [id number] Dec, [place] [address] [place] [address] [id number] Dec, Cough R05 ; Shortness of breath R06.02 ; Urinary frequency R35.0 and Chronic obstructive pulmonary disease, unspecified J44.9 [place] [address] [place] [address] [id number] Nov, Bronchitis J40 and Cough R05 [place] [address] [place] [address] [id number] Aug, Screening for hyperlipidemia Z13.220 ; Pain of left hand M79.642 and Atrial fibrillation, unspecified type I48.91 [place] [address] [place] [address] [id number] Aug, [place] [address] [place] [address] [id number] Aug, Pain of left foot M79.672 ; Pain in right foot M79.671 ; Pain of left hand M79.642 ; Pain in right hand M79.641 ; Screening for hyperlipidemia Z13.220 and Atrial fibrillation, unspecified type I48.91 [facility] [address] [id number] Jul, Rash R21 ; Arthritis of both hips M12.9 ; Depressive disorder, not elsewhere classified F32.9 ; Atrial fibrillation, unspecified type I48.91 ; Hyperthyroidism E05.90 and Chronic obstructive pulmonary disease, unspecified J44.9 [place] [address] [address] Jun, [facility] [address] [address] Jun, Rosacea L71.[address] [id number] Jun, Rosacea L71.9 and Oral herpes simplex infection B00.[address] [id number] Jun, Rash R21 [facility] [address] [id number] Jun, Asthma exacerbation J45.[address] [id number] Apr, [address] [id number] Apr, Acute diffuse otitis externa of right ear H60.311 and Rash R21 [facility] [address] [address] Feb, Rash R21 [facility] [address] [address] Feb, [facility] [address] [id number] January, Hyperthyroidism E05.[address] [id number] January, Atrial fibrillation, unspecified type I48.91 and Hyperthyroidism E05.90 [facility] [address]00565100[place], [place] [address] January, [facility] [id number][place] [id number] January, Atrial fibrillation, unspecified type I48.91 [facility] [id number], [place] [id number] Dec, Asthma exacerbation J45.901 [facility] [address] [place] [id number] [place] [address] [id number] Dec, [facility] [address] [place] [id number] [place] [address] [id number] Oct, Acute maxillary sinusitis, recurrence not specified J01.00 and Acute cystitis with hematuria N30.01 [facility] [id number] [place] [address] [id number] Oct, Sinusitis J32.9 [place] [address] [place] [address] [id number] Sep, Chronic obstructive pulmonary disease, unspecified J44.9 ; Depressive disorder, not elsewhere classified F32.9 ; Arthritis of both hips M12.9 and Essential hypertension I10 [address] [id number] [id number] Sep, [facility] [id number][place] [id number] Sep, [address] [id number] Sep, Right hip pain M25.551 [facility] [id number] [place] [address] [id number] Sep, [facility] [id number], [place] [id number] Sep, [place] [address] [place] [address] [id number] Sep, Hemoptysis R04.2 ; Pain in right hip M25.551 and Pain in left hip M25.552 [facility] [address] [place] [address] [id number] Aug, [facility] [id number], [place] [id number] Aug, Sinusitis J32.9 ; Cough R05 and Wheezing R06.2 Neri [facility] [address]65[address] [id number] May, [facility] [address] [place] [address] [id number] May, [address] [place] [address] [id number] May, [place] [address] [place] [address] [id number] Apr, Chronic airway obstruction, not elsewhere classified [address] [place] [address] [place] [address] [id number] Apr, [place] [address] [place] [address] [id number] Apr, Bronchitis, chronic obstructive, with exacerbation 491.21 [place] [address] [place] [address] [id number] Mar, [place] [address] [place] [address] [id number] Mar, Asthma, unspecified, with (acute) exacerbation 493.92 and Rhinitis 472.[address] [place] [address] [id number] Feb, [address] [place] [address] [id number] Feb, [place] [address] [place] [address] [id number] Feb, Pituitary incidentaloma 227.3 and Abnormal MRI of the head 793.0 [address] [place] [address] [id number] Feb, [place] [address] [place] [address] [id number] January, Muscle weakness of lower extremity 728.87 ; Abnormal involuntary movements 781.0 ; Unspecified otitis media 382.9 and Other general symptoms 780.99 [place] [address] [place] [address] [id number] January, Acute sinusitis, unspecified 461.9 and Muscle weakness of lower extremity 728.87 [facility] [id number][place] [id number] January, Bronchitis 490 and Cough 786.2 [facility] [place] [address] [facility] [address] [id number] [id number] Dec, [facility] [id number], [place] [id number] Dec, [facility] [id number], [place] [id number] Dec, [facility] [address] [place] [id number] [place] [address] Dec, [facility] [address] [place] [id number] [place] [address] 05403- 9306 Dec, [facility] [address] [place] [id number] [place] [address] 13353- 2685 Oct, [facility] [address] [place] [address] [id number]- 0780 Oct, [facility] [address] [place] [id number] [place] [address] 87093- 5308 Oct, [facility] [address] [place] [address] 363257- 3496 Oct, [facility] [address] [place] [address] 146261- 3252 Oct, [facility] [address] [place] [address] 456823- 5420 Oct, [facility] [address] [place] [id number] [place] [address] 941514- 2416 Oct, [facility] [address] [place] [id number] [id number] Oct, [facility] [address] [place] [address] 47719- 9601 Oct, [facility] [place] [facility] [address] [facility] [id number] [place] [address]- 0951 Oct, [facility] [place] [facility] [address] [facility] [id number], [place] [address]- 1770 Oct, [facility] [address] [facility] [id number] [place] [id number] Aug, [facility] [place] [facility] [address] [facility] [id number], [place] [address]- 5[address] Aug, [facility] [address] [facility] [id number][place] [id number] Jul, [facility] [place] [facility] [address] [facility] [id number] [place] [address]- 1631 Jul, [facility] [place] [facility] [address] [place] [id number] [address]- 4597 Jun, [facility] [address] [facility] [id number], [place] [id number] Jun, [facility] [place] [facility] [address] [facility] [id number], [place] [address]- 7553 Jun, [facility] [address] [facility] [id number], [place] [id number] Jun, [facility] [place] [facility] [address] [facility] [id number], [place] [address]- 2296 Jun, [facility] [address] [facility] [id number], [place] [id number] May, [facility] [place] [facility] [address] [facility] [id number], [place] [address]- 0185 May, [facility] [address] [facility] [id number], [place] [id number] May, [facility] [place] [facility] [address] [facility] [id number], [place] [address]- 2935 May, [facility] [address] [facility] [id number][place] [id number] May, [facility] [place] [facility] [address] [facility] [id number] [place] [address]- 2546 May, [facility] [place] [facility] [address] [id number] [place] [address]- 2546 Mar, [facility] [place] [facility] [address] [facility] [id number] [place] [address]- 2546 Mar, [facility] [address] [facility] [id number] [place] [id number] January, [facility] [place] [facility] [address] [id number] [place] [address]- 2546 January, [facility] [address] [id number] [place] [id number] Oct, [facility] [place] [facility] [address] [id number], [place] [address] 2546 Oct, [facility] [place] [facility] [address] [place] [id number], [place] [address]- 2546 Jul, [facility] [place] [facility] [address] [id number], [place] [address]- 2546 Jun, [facility] [place] [facility] [address] [id number] [place] [address]- 0006 Jun, [facility] [place] [facility] [address] [facility] [id number] [place] [address]- 2546 May, [facility] [place] [facility] [address] [id number], [place] [address]- 2546 May, [facility] [place] [facility] [address] [id number], [place] [address]- 2546 Apr, [facility] [place] [facility] [address] [id number] [place] [address]- 2546 Apr, [facility] [place] [facility] [address] [facility] [id number] [place] [address]- 2546 Mar, [facility] [place] [facility] [address] [id number] [place] [address]- 2546 Feb, [facility] [place] [facility] [address] [id number] [place] [address]- 6847 Nov, [facility] [address] [id number] [place] [address]- 4786 Oct, [facility] [address] [id number] [place] [address]- 7926 Oct, [facility] [address] [id number] [place] [address]- 3146 Oct, [facility] [address] [id number] [place] [address]- 8315 Oct, [facility] [address] [id number] [place] [address]- 0316 Oct, [facility] [address] [id number] [place] [address]- 1793 Sep, [facility] [address] [id number] [place] [address]- 0267 Sep, [facility] [address] [id number] [place] [address]- 6030 Jul, [facility] [address] [place] [id number], [place] [address]- 0606 Jul, [facility] [address] [id number] [place] [address]- 3597 17 May, 2012 [facility] [address] [facility] [id number], [place] [address]- 5968 06 May, [address] [facility] [address] [id number][place] [id number] 05 May, 2012 [facility] [address] [facility] [id number] [place] [address]- 7418 May, [facility] [place] [facility] [address] [facility] [id number] [place] [address]- 1660 May, [facility] [address] [id number], [place] [address]- 0881 May, [facility] [address] [id number] [place] [address]- 2546 Apr, [facility] [place] [facility] [address] [id number] [place] [address]- 2546 Apr, [facility] [address] [id number] [place] [address]- 2546 Apr, [facility] [place] [facility] [address] [id number] [place] [address]- 2546 Mar, [facility] [address] [id number] [place] [address]- 2546 Mar, [facility] [place] [facility] [address] [id number] [place] [address]- 2546 Mar, [facility] [address] [id number] [place] [address]- 2546 Mar, [facility] [address] [id number] [place] [address]- 2546 Feb, [facility] [place] [facility] [address] [id number][place] [id number] Feb, [facility] [place] [facility] [address] [id number] [place] [address]- 2546 Feb, [facility] [place] [facility] [address] [id number], [place] [id number] Feb, [facility] [place] [facility] [address] [id number], [place] [address]- 2546 Feb, [facility] [place] [facility] [address] [id number] [place] [address]- 2546 Feb, [facility] [address] [id number] [place] [id number] January, [facility] [place] [facility] [address] [id number] [place] [address]- 2546 January, [facility] [place] [facility] [address] [id number][place] [id number] January, [facility] [address] [id number] [place] [address] 2546 January, [facility] [place] [facility] [address] [id number], [place] [id number] January, [facility] [address] [id number] [place] [address]- 8716 January, [facility] [place] [facility] [address] [id number] [place] [address]- 9976 January, [facility] [address] [id number] [place] [address]- 1796 January, [facility] [address] [id number] [place] [address]- 0816 Dec, [facility] [address] [id number] [place] [address]- 4226 Dec, [facility] [address] [id number] [place] [address]- 9906 Dec, [facility] [address] [id number] [place] [address]- 5171 Dec, [facility] [address] [id number], [place] [address]- 6786 Dec, [facility] [address] [id number][place] [id number] Dec, [facility] [address] [id number], [place] [address]- 2546 Nov, [facility] [address] [id number] [place] [address]- 2546 Nov, [facility] [place] [facility] [address] [id number] [place] [address]- 2546 Nov, [facility] [place] [facility] [address] [id number][place] [id number] Oct, [facility] [place] [facility] [address] [id number], [place] [id number] Oct, [facility] [address] [facility] [id number], [place] [address]- 2546 Oct, [facility] [address] [facility] [id number] [place] [id number] Sep, [facility] [address] [facility] [id number], [place] [address]- 2546 Sep, [facility] 120 [facility] [id number], [place] [id number] Sep, [facility] 120 [facility] [id number] [place] [id number] Sep, [facility] [address] [place] [id number] [place] [address] Aug, [facility] [address] [facility] [id number], [place] [address] Aug, [facility] [place] [facility] [address] [id number] [address] Aug, [facility] [address] [id number] [address] Aug, [facility] [place] [facility] [address] [id number] [place] [address] Jul, [facility] [address] [id number] [address] Jul, [facility] [place] [facility] [address] [id number] [address] May, [facility] [place] [facility] [address] [id number], [place] [address] January, [facility] [place] [facility] [address] [facility] [id number] [place] [address] 20 Dec, 2010 [facility] [place] [facility] [address] [facility] [id number], [place] [address] Nov, [facility] [place] [facility] [address] [facility] [id number], [place] [address] Aug, [facility] [address] [facility] [id number] [address] Aug, [facility] [address] [facility] [id number][place] [address] [address] Aug, [facility] [address] [facility] [id number] [address] Aug, [facility] [address] [facility] [id number] Aug, [facility] [address] [facility] [id number] [address] Aug, [facility] [address] [facility] [id number] [address] [address] Jun, [facility] [id number], [place] [address] Jun, [facility] [id number], [place] [address] Jun, [facility] [address] [facility] [id number], [place] [address] Jun, [facility] [id number], [place] [address] Jun, [facility] [id number], [place] [address] 14 May, 2010 [facility] [address] [id number] [address] 10 May, 2010 IMMUNIZATIONS Vaccine Route Administration Date Status ROCEPHIN 1 GM (IM) IM Intramuscular Sep 19, 2017 Administered SOCIAL HISTORY Never Assessed REASON FOR VISIT DIZZYNESS/EARACHE, had sinus surgery in late june, 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 david mtz PLAN OF CARE Activity Details Follow Up prn Reason: VITAL SIGNS Height 62 in 2017-09-19 Weight 204.5 lbs 2017-09-19 Temperature 97.4 degrees Fahrenheit 2017-09-19 Heart Rate 66 bpm 2017-09-19 Respiratory Rate 18 2017-09-19 Oximetry 94 % 2017-09-19 BMI 37.40 kg/m2 2017-09-19 Blood pressure systolic 128 mmHg 2017-09-19 Blood pressure diastolic 90 mmHg 2017-09-19 MEDICATIONS Medication Instructions Dosage Frequency Start Date End Date Duration Status Metoprolol Succinate ER 100 MG Orally Once a day 1 tablet 24h Active Cardizem CD 180 MG Orally Once a day 1 capsule 24h January, Active Albuterol Sulfate 2.5 mg /3 mL (0.083 %) 1 Each by Inhalation route every 6 hours for cough and wheezePRNfor wheezing or cough Sep, Active Tapazole 5 mg Orally Once a day 4 tablet with food 24h Active Acidophilus Probiotic 100 mg Orally 2 times a day 1 capsule 12h Aug, Sep, 07 days Active Atrovent HFA 17 MCG/ACT Inhalation Four times a day 2 puffs 6h Active Fluoxetine 20 mg 1 capsule Once a day orally Active Benadryl Allergy 25 MG Orally every 6 hrs 1 tablet as needed 6h Active Fluoxetine HCl 20 MG TAKE 1 CAPSULE ONCE A DAY ORALLY 30 Active Advair Diskus 500-50 MCG/DOSE Inhalation Twice a day 1 puff 12h 24 Oct, 2013 Active ZyrTEC 10 mg 1 tablet by Oral route 1 time per day Dec, Active Sudafed 60 mg Orally every 6 hrs 1 tablet as needed 6h May, Not-Taking PredniSONE 20 mg Orally Once a day 2 tablet 24h Aug, Sep, 05 days Active Singulair 10 mg 1 tablet by Oral route 1 time per day for 30 days Jun, Active EPINEPHrine 0.3 mg/0.3 mL 0.3 mg by Intramuscular route 1 time per dayPRNfor anyphylaxis Feb, Active Eliquis 5 mg Orally 2 times a day 1 tablet 12h January, Active Flonase 50 MCG/ACT Nasally 2 times a day 1 spray in each nostril 12h Active Cefdinir 300 MG Orally every 12 hrs 1 capsule 12h Aug, Sep, 10 day(s) Active ProAir HFA 108 (90 Base) MCG/ACT INHALE 2 PUFFS NEEDED 4 TIMES A DAY 25 Active RESULTS No Results PROCEDURES Procedure Date Ordered Result Body Site ROCEPHIN 1 GM (IM) Sep 19, 2017 THER/PROPH/DIAG INJ, SC/IM Sep 19, 2017 INSTRUCTIONS MEDICATIONS ADMINISTERED No Known Medications [...]
[2019-01-13 10:18] LABS: BASOPHILS % (AUTO) 0 % (0-10); EOSINOPHILS # (AUTO) 0.3 10^3/uL (0.0-0.3); EOSINOPHILS % (AUTO) 3 % (0-10); HEMATOCRIT 44 % (35-52); HEMOGLOBIN 14.2 G/DL (11.5-16.0); LYMPHOCYTES % (AUTO) 18 % (12-44); MEAN CORPUSCULAR HEMOGLOBIN 28 PG (25-34); MEAN CORPUSCULAR HGB CONC 32 G/DL (32-36); MEAN CORPUSCULAR VOLUME 86 FL (80-99); MEAN PLATELET VOLUME 10.9 FL (7.4-10.4); MONOCYTES # (AUTO) 0.8 X 10^3 (0.0-1.0); MONOCYTES % (AUTO) 7 % (0-12); NEUTROPHILS # (AUTO) 8.1 X 10^3 (1.8-7.8); NEUTROPHILS % (AUTO) 72 % (42-75); PLATELET COUNT 235 10^3/uL (130-400); RED CELL DISTRIBUTION WIDTH 15.4 % (10.0-14.5); WHITE BLOOD COUNT 11.3 10^3/uL (4.3-11.0)
--- OUTSIDE RECORDS SUMMARY | 2019-01-13 10:19 | XMS REPORT | Continuity of Care Document ---
Author Organization Unknown Address Unknown Allergies Active Description Code Type Severity Reaction Onset Reported/Identified Relationship to Patient Clinical Status Yes Penicillins Drug Allergy N/A N/A 05/17/2010 Yes sulfADIAZINE Drug Allergy N/ A N/A 05/17/2010 Yes Penicillins Drug Allergy 05/17/2010 Yes sulfADIAZINE Drug Allergy 05/17/2010 Yes PCN PCN Unknown N/ A 03/15/2011 Yes SULFA SULFA Unknown N/A 03/15/2011 Yes Bactrim DS 800-160 mg tablet Drug Allergy N/A N/A 11/03/2014 Medications There is no data. Problems Date Dx Coded Attending Type Code Diagnosis Diagnosed By 05/17/2010 401.9 Unspecified Essential Hypertension 05/17/2010 461.8 Other Acute Sinusitis 05/17/2010 493.90 ASTHMA 05/17/2010 692.9 Contact Dermatitis And Other Eczema, Unspecified Cause 05/17/2010 845.00 Sprains And Strains Of Ankle, Unspecified Site 05/17/2010 DOMINGO FLORENCE APRN R 401.9 Unspecified Essential Hypertension 05/17/2010 DOMINGO FLORENCE APRN R 461.8 Other Acute Sinusitis 05/17/2010 DOMINGO FLORENCE APRN R 493.90 ASTHMA 05/17/2010 DOMINGO FLORENCE APRN R 692.9 Contact Dermatitis And Other Eczema, Unspecified Cause 05/17/2010 DOMINGO FLORENCE APRN R 845.00 Sprains And Strains Of Ankle, Unspecified Site 05/17/2010 SANTO BAIRD MD 401.9 Unspecified Essential Hypertension 05/17/2010 SANTO BAIRD MD A 461.8 Other Acute Sinusitis 05/17/2010 SANTO BAIRD MD 493.90 ASTHMA 05/17/2010 SANTO BAIRD MD 692.9 Contact Dermatitis And Other Eczema, Unspecified Cause 05/17/2010 SANTO BAIRD MD 845.00 Sprains And Strains Of Ankle, Unspecified Site 05/17/2010 401.9 Unspecified Essential Hypertension 05/17/2010 461.8 Other Acute Sinusitis 05/17/2010 493.90 ASTHMA 05/17/2010 692.9 Contact Dermatitis And Other Eczema, Unspecified Cause 05/17/2010 845.00 Sprains And Strains Of Ankle, Unspecified Site 05/17/2010 401.9 Unspecified Essential Hypertension 05/17/2010 461.8 Other Acute Sinusitis 05/17/2010 493.90 ASTHMA 05/17/2010 692.9 Contact Dermatitis And Other Eczema, Unspecified Cause 05/17/2010 845.00 Sprains And Strains Of Ankle, Unspecified Site 05/17/2010 401.9 Unspecified Essential Hypertension 05/17/2010 461.8 Other Acute Sinusitis 05/17/2010 493.90 ASTHMA 05/17/2010 692.9 Contact Dermatitis And Other Eczema, Unspecified Cause 05/17/2010 845.00 Sprains And Strains Of Ankle, Unspecified Site 05/17/2010 KRAMER DO, KEVIN K 401.9 Unspecified Essential Hypertension 05/17/2010 KRAMER DO, KEVIN K 461.8 Other Acute Sinusitis 05/17/2010 KRAMER DO, KEVIN K 493.90 ASTHMA 05/17/2010 KRAMER DO, KEVIN K 692.9 Contact Dermatitis And Other Eczema, Unspecified Cause 05/17/2010 KRAMER DO, KEVIN K 845.00 Sprains And Strains Of Ankle, Unspecified Site 05/17/2010 KRAMER DO, KEVIN K 401.9 Unspecified Essential Hypertension 05/17/2010 KRAMER DO, KEVIN K 461.8 Other Acute Sinusitis 05/17/2010 KRAMER DO, KEVIN K 493.90 ASTHMA 05/17/2010 KRAMER DO, KEVIN K 692.9 Contact Dermatitis And Other Eczema, Unspecified Cause 05/17/2010 KRAMER DO, KEVIN K 845.00 Sprains And Strains Of Ankle, Unspecified Site 05/17/2010 KRAMER DO, KEVIN K 401.9 Unspecified Essential Hypertension 05/17/2010 KRAMER DO, KEVIN K 461.8 Other Acute Sinusitis 05/17/2010 KRAMER DO, KEVIN K 493.90 ASTHMA 05/17/2010 KRAMER DO, KEVIN K 692.9 Contact Dermatitis And Other Eczema, Unspecified Cause 05/17/2010 KRAMER DO, KEVIN K 845.00 Sprains And Strains Of Ankle, Unspecified Site 05/17/2010 401.9 Unspecified Essential Hypertension 05/17/2010 461.8 Other Acute Sinusitis 05/17/2010 493.90 ASTHMA 05/17/2010 692.9 Contact Dermatitis And Other Eczema, Unspecified Cause 05/17/2010 845.00 Sprains And Strains Of Ankle, Unspecified Site 05/17/2010 DOVER NILAM NORRIS R 401.9 Unspecified Essential Hypertension 05/17/2010 DOVER FLOOR INSPECTOR, NILAM R 461.8 Other Acute Sinusitis 05/17/2010 DOVER FLOOR INSPECTORNILAM Roger R 493.90 ASTHMA 05/17/2010 DOVER JR, NILAM R 692.9 Contact Dermatitis And Other Eczema, Unspecified Cause 05/17/2010 DOVERNILAM DEL CID APRN R 845.00 Sprains And Strains Of Ankle, Unspecified Site 05/17/2010 KRAMER DO KEVIN K 401.9 Unspecified Essential Hypertension 05/17/2010 KRAMER DO, KEVIN K 461.8 Other Acute Sinusitis 05/17/2010 KRAMER DO, KEVIN K 493.90 ASTHMA 05/17/2010 KRAMER DO, KEVIN K 692.9 Contact Dermatitis And Other Eczema, Unspecified Cause 05/17/2010 KRAMER DO, KEVIN K 845.00 Sprains And Strains Of Ankle, Unspecified Site 05/17/2010 KRAMER DO, KEVIN K 401.9 Unspecified Essential Hypertension 05/17/2010 KRAMER DO, KEVIN K 461.8 Other Acute Sinusitis 05/17/2010 KRAMER DO, KEVIN K 493.90 ASTHMA 05/17/2010 KRAMER DO, KEVIN K 692.9 Contact Dermatitis And Other Eczema, Unspecified Cause 05/17/2010 KRAMER DO, KEVIN K 845.00 Sprains And Strains Of Ankle, Unspecified Site 05/17/2010 DOVER NILAM NORRIS R 401.9 Unspecified Essential Hypertension 05/17/2010 DOVER NILAM NORRIS R 461.8 Other Acute Sinusitis 05/17/2010 DOVER NILAM NORRIS R 493.90 ASTHMA 05/17/2010 DOVER NILAM NORRIS R 692.9 Contact Dermatitis And Other Eczema, Unspecified Cause 05/17/2010 DOVERNILAM DEL CID APRN 845.00 Sprains And Strains Of Ankle, Unspecified Site 05/17/2010 KEVIN KRAMER DO K 401.9 Unspecified Essential Hypertension 05/17/2010 KRAMER ALICIA SALVADORA K 461.8 Other Acute Sinusitis 05/17/2010 KRAMER ALICIA SALVADORA K 493.90 ASTHMA 05/17/2010 ALICIA KRAMER DOA K 692.9 Contact Dermatitis And Other Eczema, Unspecified Cause 05/17/2010 KEVIN KRAMER DO K 845.00 Sprains And Strains Of Ankle, Unspecified Site 05/17/2010 JR CASAS APRN 401.9 Unspecified Essential Hypertension 05/17/2010 JR CASAS APRN 461.8 Other Acute Sinusitis 05/17/2010 JR CASAS APRN 493.90 ASTHMA 05/17/2010 JR CASAS APRN 692.9 Contact Dermatitis And Other Eczema, Unspecified Cause 05/17/2010 JR CASAS APRN 845.00 Sprains And Strains Of Ankle, Unspecified Site 05/28/2010 626.1 Scanty Or Infrequent Menstruation 05/28/2010 V72.31 Routine Gynecological Examination 05/28/2010 DOMINGO FLORENCE APRN R 626.1 Scanty Or Infrequent Menstruation 05/28/2010 DOMINGO FLORENCE APRN R V72.31 Routine Gynecological Examination 05/28/2010 SANTO BAIRD MD 626.1 Scanty Or Infrequent Menstruation 05/28/2010 SANTO BAIRD MD V72.31 Routine Gynecological Examination 05/28/2010 626.1 Scanty Or Infrequent Menstruation 05/28/2010 V72.31 Routine Gynecological Examination 05/28/2010 626.1 Scanty Or Infrequent Menstruation 05/28/2010 V72.31 Routine Gynecological Examination 05/28/2010 626.1 Scanty Or Infrequent Menstruation 05/28/2010 V72.31 Routine Gynecological Examination 05/28/2010 KEVIN KRAMER DO 626.1 Scanty Or Infrequent Menstruation 05/28/2010 ALICIA KRAMER DOA K V72.31 Routine Gynecological Examination 05/28/2010 KEVIN KRAMER DO 626.1 Scanty Or Infrequent Menstruation 05/28/2010 KEVIN KRAMER DO V72.31 Routine Gynecological Examination 05/28/2010 KEVIN KRAMER DO 626.1 Scanty Or Infrequent Menstruation 05/28/2010 KEVIN KRAMER DO K V72.31 Routine Gynecological Examination 05/28/2010 626.1 Scanty Or Infrequent Menstruation 05/28/2010 V72.31 Routine Gynecological Examination 05/28/2010 NILAM DOVER APRN 626.1 Scanty Or Infrequent Menstruation 05/28/2010 NILAM DOVER APRN V72.31 Routine Gynecological Examination 05/28/2010 KEVIN KRAMER DO 626.1 Scanty Or Infrequent Menstruation 05/28/2010 KEVIN KRAMER DO K V72.31 Routine Gynecological Examination 05/28/2010 KEVIN KRAMER DO 626.1 Scanty Or Infrequent Menstruation 05/28/2010 KEVIN KRAMER DO V72.31 Routine Gynecological Examination 05/28/2010 NILAM DOVER APRN 626.1 Scanty Or Infrequent Menstruation 05/28/2010 NILAM DOVER APRN V72.31 Routine Gynecological Examination 05/28/2010 KEVIN KRAMER DO 626.1 Scanty Or Infrequent Menstruation 05/28/2010 KEVIN KRAMER DO K V72.31 Routine Gynecological Examination 05/28/2010 JR CASAS APRN 626.1 Scanty Or Infrequent Menstruation 05/28/2010 JR CASAS APRN V72.31 Routine Gynecological Examination 05/31/2010 472.0 Chronic Rhinitis 05/31/2010 DOMINGO FLORENCE APRN 472.0 Chronic Rhinitis 05/31/2010 CHARITY EDGAR MD, SANTO Hampton 472.0 Chronic Rhinitis 05/31/2010 472.0 Chronic Rhinitis 05/31/2010 472.0 Chronic Rhinitis 05/31/2010 472.0 Chronic Rhinitis 05/31/2010 KEVIN KRAMER DO 472.0 Chronic Rhinitis 05/31/2010 KEVIN KRAMER DO 472.0 Chronic Rhinitis 05/31/2010 KEVIN KRAMER DO K 472.0 Chronic Rhinitis 05/31/2010 472.0 Chronic Rhinitis 05/31/2010 NILAM ODVER APRN 472.0 Chronic Rhinitis 05/31/2010 KEVIN KRAMER DO 472.0 Chronic Rhinitis 05/31/2010 KEVIN KRAMER DO K 472.0 Chronic Rhinitis 05/31/2010 NILAM DOVER APRN 472.0 Chronic Rhinitis 05/31/2010 KEVIN KRAMER DO K 472.0 Chronic Rhinitis 05/31/2010 AUGUSTO NORRIS JR J 472.0 Chronic Rhinitis 06/04/2010 242.90 HYPERTHYROIDISM 06/04/2010 782.1 Skin: A Rash [ as Sx] 06/04/2010 790.29 PREDIABETES ( IMPAIRED GLUCOSE TOLERANCE) 06/04/2010 DOMINGO FLORENCE APRN R 242.90 HYPERTHYROIDISM 06/04/2010 DOMINGO FLORENCE APRN R 782.1 Skin: A Rash [as Sx] 06/04/2010 DOMINGO FLORENCE APRN R 790.29 PREDIABETES (IMPAIRED GLUCOSE TOLERANCE) 06/04/2010 SANTO BAIRD MD 242.90 HYPERTHYROIDISM 06/04/2010 SANTO BAIRD MD A 782.1 Skin: A Rash [as Sx] 06/04/2010 SANTO BAIRD MD A 790.29 PREDIABETES (IMPAIRED GLUCOSE TOLERANCE) 06/04/2010 242.90 HYPERTHYROIDISM 06/04/2010 782.1 Skin: A Rash [ as Sx] 06/04/2010 790.29 PREDIABETES ( IMPAIRED GLUCOSE TOLERANCE) 06/04/2010 242.90 HYPERTHYROIDISM 06/04/2010 782.1 Skin: A Rash [ as Sx] 06/04/2010 790.29 PREDIABETES ( IMPAIRED GLUCOSE TOLERANCE) 06/04/2010 242.90 HYPERTHYROIDISM 06/04/2010 782.1 Skin: A Rash [ as Sx] 06/04/2010 790.29 PREDIABETES ( IMPAIRED GLUCOSE TOLERANCE) 06/04/2010 KEVIN KRAMER DO K 242.90 HYPERTHYROIDISM 06/04/2010 KEVIN KRAMER DO K 782.1 Skin: A Rash [as Sx] 06/04/2010 ALICIA KRAMER DOA K 790.29 PREDIABETES (IMPAIRED GLUCOSE TOLERANCE) 06/04/2010 KEVIN KRAMER DO K 242.90 HYPERTHYROIDISM 06/04/2010 KEVIN KRAMER DO K 782.1 Skin: A Rash [as Sx] 06/04/2010 KEVIN KRAMER DO 790.29 PREDIABETES (IMPAIRED GLUCOSE TOLERANCE) 06/04/2010 KEVIN KRAMER DO K 242.90 HYPERTHYROIDISM 06/04/2010 KEVIN KRAMER DO 782.1 Skin: A Rash [as Sx] 06/04/2010 KEVIN KRAMER DO 790.29 PREDIABETES (IMPAIRED GLUCOSE TOLERANCE) 06/04/2010 242.90 HYPERTHYROIDISM 06/04/2010 782.1 Skin: A Rash [ as Sx] 06/04/2010 790.29 PREDIABETES ( IMPAIRED GLUCOSE TOLERANCE) 06/04/2010 NILAM DOVER APRN 242.90 HYPERTHYROIDISM 06/04/2010 NILAM DOVER APRN 782.1 Skin: A Rash [as Sx] 06/04/2010 NILAM DOVER APRN 790.29 PREDIABETES (IMPAIRED GLUCOSE TOLERANCE) 06/04/2010 KEVIN KRAMER DO 242.90 HYPERTHYROIDISM 06/04/2010 KEVIN KRAMER DO 782.1 Skin: A Rash [as Sx] 06/04/2010 KEVIN KRAMER DO 790.29 PREDIABETES (IMPAIRED GLUCOSE TOLERANCE) 06/04/2010 KEVIN KRAMER DO K 242.90 HYPERTHYROIDISM 06/04/2010 KEVIN KRAMER DO K 782.1 Skin: A Rash [as Sx] 06/04/2010 KEVIN KRAMER DO 790.29 PREDIABETES (IMPAIRED GLUCOSE TOLERANCE) 06/04/2010 NILAM DOVER APRN 242.90 HYPERTHYROIDISM 06/04/2010 NILAM DOVER APRN 782.1 Skin: A Rash [as Sx] 06/04/2010 NILAM DOEVR APRN 790.29 PREDIABETES (IMPAIRED GLUCOSE TOLERANCE) 06/04/2010 KEVIN KRAMER DO K 242.90 HYPERTHYROIDISM 06/04/2010 KEVIN KRAMER DO K 782.1 Skin: A Rash [as Sx] 06/04/2010 KEVIN KRAMER DO 790.29 PREDIABETES (IMPAIRED GLUCOSE TOLERANCE) 06/04/2010 JR CASAS APRN 242.90 HYPERTHYROIDISM 06/04/2010 JR CASAS APRN 782.1 Skin: A Rash [as Sx] 06/04/2010 RENETTA CASAS APRNNIFER Tee 790.29 PREDIABETES (IMPAIRED GLUCOSE TOLERANCE) 07/02/2010 471.9 UNSPECIFIED NASAL POLYP 07/02/2010 V58.69 Long-term ( current) Use Of Other Medications 07/02/2010 DOMINGO FLORENCE APRN R 471.9 UNSPECIFIED NASAL POLYP 07/02/2010 DOMINGO FLORENCE APRN R V58.69 Long-term (current) Use Of Other Medications 07/02/2010 SANTO BAIRD MD 471.9 UNSPECIFIED NASAL POLYP 07/02/2010 SANTO BAIRD MD V58.69 Long-term (current) Use Of Other Medications 07/02/2010 471.9 UNSPECIFIED NASAL POLYP 07/02/2010 V58.69 Long-term ( current) Use Of Other Medications 07/02/2010 471.9 UNSPECIFIED NASAL POLYP 07/02/2010 V58.69 Long-term ( current) Use Of Other Medications 07/02/2010 471.9 UNSPECIFIED NASAL POLYP 07/02/2010 V58.69 Long-term ( current) Use Of Other Medications 07/02/2010 KRAMER ALICIA SALVADORA K 471.9 UNSPECIFIED NASAL POLYP 07/02/2010 KRAMER ALICIA SALVADORA K V58.69 Long-term (current) Use Of Other Medications 07/02/2010 KRAMER DOALICIAA K 471.9 UNSPECIFIED NASAL POLYP 07/02/2010 KRAMER DO KEVIN K V58.69 Long-term (current) Use Of Other Medications 07/02/2010 KRAMER DOALICIAA K 471.9 UNSPECIFIED NASAL POLYP 07/02/2010 KRAMER DO KEVIN K V58.69 Long-term (current) Use Of Other Medications 07/02/2010 471.9 UNSPECIFIED NASAL POLYP 07/02/2010 V58.69 Long-term ( current) Use Of Other Medications 07/02/2010 NILAM DOVER APRN 471.9 UNSPECIFIED NASAL POLYP 07/02/2010 NILAM DOVER APRN V58.69 Long-term (current) Use Of Other Medications 07/02/2010 KRAMER DO KEVIN K 471.9 UNSPECIFIED NASAL POLYP 07/02/2010 WILLIAMS SALVADOR KEVIN K V58.69 Long-term (current) Use Of Other Medications 07/02/2010 KEVIN KRAMER DO 471.9 UNSPECIFIED NASAL POLYP 07/02/2010 KEVIN KRAMER DO V58.69 Long-term (current) Use Of Other Medications 07/02/2010 NILAM DOVER APRN 471.9 UNSPECIFIED NASAL POLYP 07/02/2010 NILAM DOVER APRN V58.69 Long-term (current) Use Of Other Medications 07/02/2010 KEVIN KRAMER DO 471.9 UNSPECIFIED NASAL POLYP 07/02/2010 KEVIN KRAMER DO V58.69 Long-term (current) Use Of Other Medications 07/02/2010 JR CASAS APRN 471.9 UNSPECIFIED NASAL POLYP 07/02/2010 JR CASAS APRN V58.69 Long-term (current) Use Of Other Medications 08/22/2010 493.02 Asthma Extrinsic - With Acute Exacerbation 08/22/2010 DOMINGO FLORENCE APRN 493.02 Asthma Extrinsic - With Acute Exacerbation 08/22/2010 CHARITY EDGAR MD, SANTO Hampton 493.02 Asthma Extrinsic - With Acute Exacerbation 08/22/2010 493.02 Asthma Extrinsic - With Acute Exacerbation 08/22/2010 493.02 Asthma Extrinsic - With Acute Exacerbation 08/22/2010 493.02 Asthma Extrinsic - With Acute Exacerbation 08/22/2010 KEVIN KRAMER DO 493.02 Asthma Extrinsic - With Acute Exacerbation 08/22/2010 KEVIN KRAMER DO 493.02 Asthma Extrinsic - With Acute Exacerbation 08/22/2010 KEVIN KRAMER DO 493.02 Asthma Extrinsic - With Acute Exacerbation 08/22/2010 493.02 Asthma Extrinsic - With Acute Exacerbation 08/22/2010 NILAM DOVER APRN 493.02 Asthma Extrinsic - With Acute Exacerbation 08/22/2010 KEVIN KRAMER DO 493.02 Asthma Extrinsic - With Acute Exacerbation 08/22/2010 KEVIN KRAMER DO 493.02 Asthma Extrinsic - With Acute Exacerbation 08/22/2010 NILAM DOVER APRN 493.02 Asthma Extrinsic - With Acute Exacerbation 08/22/2010 KEVIN KRAMER DO 493.02 Asthma Extrinsic - With Acute Exacerbation 08/22/2010 JR CASAS APRN 493.02 Asthma Extrinsic - With Acute Exacerbation 10/21/2010 461.9 Sinusitis Acute 10/21/2010 465.9 Upper Respiratory Infection 10/21/2010 786.2 Cough 10/21/2010 FLORENCE FLOOR INSPECTOR, DOMINGO R 461.9 Sinusitis Acute 10/21/2010 NAMAN FLOOR INSPECTOR, DOMINGO R 465.9 Upper Respiratory Infection 10/21/2010 FLORENCE FLOOR INSPECTOR, DOMINGO R 786.2 Cough 10/21/2010 CHARITY EDGAR MD, SANTO A 461.9 Sinusitis Acute 10/21/2010 CHARITY EDGAR MD, SANTO A 465.9 Upper Respiratory Infection 10/21/2010 CHARITY EDGAR MD, SANTO A 786.2 Cough 10/21/2010 461.9 Sinusitis Acute 10/21/2010 465.9 Upper Respiratory Infection 10/21/2010 786.2 Cough 10/21/2010 461.9 Sinusitis Acute 10/21/2010 465.9 Upper Respiratory Infection 10/21/2010 786.2 Cough 10/21/2010 461.9 Sinusitis Acute 10/21/2010 465.9 Upper Respiratory Infection 10/21/2010 786.2 Cough 10/21/2010 KRAMER DO, KEVIN K 461.9 Sinusitis Acute 10/21/2010 KRAMER DO, KEVIN K 465.9 Upper Respiratory Infection 10/21/2010 KRAMER DO, KEVIN K 786.2 Cough 10/21/2010 KRAMER DO, KEVIN K 461.9 Sinusitis Acute 10/21/2010 KRAMER DO, KEVIN K 465.9 Upper Respiratory Infection 10/21/2010 KRAMER DO, KEVIN K 786.2 Cough 10/21/2010 KRAMER DO, KEVIN K 461.9 Sinusitis Acute 10/21/2010 KRAMER DO, KEVIN K 465.9 Upper Respiratory Infection 10/21/2010 KRAMER DO, KEVIN K 786.2 Cough 10/21/2010 461.9 Sinusitis Acute 10/21/2010 465.9 Upper Respiratory Infection 10/21/2010 786.2 Cough 10/21/2010 NILAM DOVER APRN 461.9 Sinusitis Acute 10/21/2010 DOVERNILAM DEL CID APRN 465.9 Upper Respiratory Infection 10/21/2010 NILAM DOVER APRN 786.2 Cough 10/21/2010 KRAMER DO, KEVIN K 461.9 Sinusitis Acute 10/21/2010 KRAMER DO, KEVIN K 465.9 Upper Respiratory Infection 10/21/2010 KRAMER DO, KEVIN K 786.2 Cough 10/21/2010 KRAMER DO, KEVIN K 461.9 Sinusitis Acute 10/21/2010 KRAMER DO, KEVIN K 465.9 Upper Respiratory Infection 10/21/2010 KRAMER DO, KEVIN K 786.2 Cough 10/21/2010 DOVERNILAM DEL CID APRN R 461.9 Sinusitis Acute 10/21/2010 DOVERNLIAM DEL CID APRN R 465.9 Upper Respiratory Infection 10/21/2010 DOVER NILAM NORRIS R 786.2 Cough 10/21/2010 KRAMER DO, KEVIN K 461.9 Sinusitis Acute 10/21/2010 KRAMER DO, KEVIN K 465.9 Upper Respiratory Infection 10/21/2010 KRAMER DO, KEVIN K 786.2 Cough 10/21/2010 JR CASAS APRN 461.9 Sinusitis Acute 10/21/2010 JR CASAS APRN 465.9 Upper Respiratory Infection 10/21/2010 JR CASAS APRN 786.2 Cough 01/08/2011 780.79 Fatigue 01/08/2011 DOMINGO FLORENCE APRN 780.79 Fatigue 01/08/2011 SANTO BAIRD MD 780.79 Fatigue 01/08/2011 780.79 Fatigue 01/08/2011 780.79 Fatigue 01/08/2011 780.79 Fatigue 01/08/2011 KRAMER DO, KEVIN K 780.79 Fatigue 01/08/2011 KRAMER DO, KEVIN K 780.79 Fatigue 01/08/2011 KRAMER DO, KEVIN K 780.79 Fatigue 01/08/2011 780.79 Fatigue 01/08/2011 NILAM DOVER APRN R 780.79 Fatigue 01/08/2011 KRAMER DO, KEVIN K 780.79 Fatigue 01/08/2011 KRAMER DO, KEVIN K 780.79 Fatigue 01/08/2011 DOVERNILAM DEL CID APRN R 780.79 Fatigue 01/08/2011 KRAMER DO, KEVIN K 780.79 Fatigue 01/08/2011 JR CASAS APRN 780.79 Fatigue 03/14/2011 789.04 Abdominal Pain Left Lower Quadrant 03/14/2011 DOMINGO FLORENCE APRN 789.04 Abdominal Pain Left Lower Quadrant 03/14/2011 SANTO BAIRD MD 789.04 Abdominal Pain Left Lower Quadrant 03/14/2011 789.04 Abdominal Pain Left Lower Quadrant 03/14/2011 789.04 Abdominal Pain Left Lower Quadrant 03/14/2011 789.04 Abdominal Pain Left Lower Quadrant 03/14/2011 KRAMER DOALICIAA K 789.04 Abdominal Pain Left Lower Quadrant 03/14/2011 KRAMER DO, KEVIN K 789.04 Abdominal Pain Left Lower Quadrant 03/14/2011 KRAMER DOALICIAA K 789.04 Abdominal Pain Left Lower Quadrant 03/14/2011 789.04 Abdominal Pain Left Lower Quadrant 03/14/2011 NILAM DOVER APRN 789.04 Abdominal Pain Left Lower Quadrant 03/14/2011 KRAMER KEVIN SALVADOR K 789.04 Abdominal Pain Left Lower Quadrant 03/14/2011 KRAMER ALICIA SALVADORA K 789.04 Abdominal Pain Left Lower Quadrant 03/14/2011 NILAM DOVER APRN 789.04 Abdominal Pain Left Lower Quadrant 03/14/2011 KRAMER KEVIN SALVADOR K 789.04 Abdominal Pain Left Lower Quadrant 03/14/2011 JR CASAS APRN 789.04 Abdominal Pain Left Lower Quadrant 03/15/2011 Ot 562.11 DIVERTICULITIS COLON (W/O MENT OF HEMORR 03/15/2011 Ot 599.0 URIN TRACT INFECTION NOS 03/15/2011 Ot 789.09 ABDOMINAL PAIN, OTHER SPECIFIED SITE 04/16/2011 491.21 Chronic Bronchitis - With Acute Exacerbation 04/16/2011 DOMINGO FLORENCE APRN 491.21 Chronic Bronchitis - With Acute Exacerbation 04/16/2011 CHARITY EDGAR MD, SANTO Hampton 491.21 Chronic Bronchitis - With Acute Exacerbation 04/16/2011 491.21 Chronic Bronchitis - With Acute Exacerbation 04/16/2011 491.21 Chronic Bronchitis - With Acute Exacerbation 04/16/2011 491.21 Chronic Bronchitis - With Acute Exacerbation 04/16/2011 KEVIN KRAMER DO 491.21 Chronic Bronchitis - With Acute Exacerbation 04/16/2011 KEVIN KRAMER DO 491.21 Chronic Bronchitis - With Acute Exacerbation 04/16/2011 KEVIN KRAMER DO 491.21 Chronic Bronchitis - With Acute Exacerbation 04/16/2011 491.21 Chronic Bronchitis - With Acute Exacerbation 04/16/2011 NILAM DOVER APRN 491.21 Chronic Bronchitis - With Acute Exacerbation 04/16/2011 KEVIN KRAMER DO 491.21 Chronic Bronchitis - With Acute Exacerbation 04/16/2011 KEVIN KRAMER DO 491.21 Chronic Bronchitis - With Acute Exacerbation 04/16/2011 NILAM DOVER APRN 491.21 Chronic Bronchitis - With Acute Exacerbation 04/16/2011 KEVIN KRAMER DO 491.21 Chronic Bronchitis - With Acute Exacerbation 04/16/2011 JR CASAS APRN 491.21 Chronic Bronchitis - With Acute Exacerbation 05/12/2011 240.9 NONTOXIC GOITER DIFFUSE 05/12/2011 723.1 Cervicalgia 05/12/2011 780.52 Insomnia Unspecified 05/12/2011 787.20 Dysphagia, Unspecified 05/12/2011 DOMINGO FLORENCE APRN R 240.9 NONTOXIC GOITER DIFFUSE 05/12/2011 DOMINGO FLORENCE APRN R 723.1 Cervicalgia 05/12/2011 DOMINGO FLORENCE APRN R 780.52 Insomnia Unspecified 05/12/2011 DOMINGO FLORENCE APRN R 787.20 Dysphagia, Unspecified 05/12/2011 CHARITY EDGAR MD, SANTO A 240.9 NONTOXIC GOITER DIFFUSE 05/12/2011 CHARITY EDGAR MD, SANTO A 723.1 Cervicalgia 05/12/2011 SANTO BAIRD MD A 780.52 Insomnia Unspecified 05/12/2011 CHARITY EDGAR MD, SANTO A 787.20 Dysphagia, Unspecified 05/12/2011 240.9 NONTOXIC GOITER DIFFUSE 05/12/2011 723.1 Cervicalgia 05/12/2011 780.52 Insomnia Unspecified 05/12/2011 787.20 Dysphagia, Unspecified 05/12/2011 240.9 NONTOXIC GOITER DIFFUSE 05/12/2011 723.1 Cervicalgia 05/12/2011 780.52 Insomnia Unspecified 05/12/2011 787.20 Dysphagia, Unspecified 05/12/2011 240.9 NONTOXIC GOITER DIFFUSE 05/12/2011 723.1 Cervicalgia 05/12/2011 780.52 Insomnia Unspecified 05/12/2011 787.20 Dysphagia, Unspecified 05/12/2011 KEVIN KRAMER DO K 240.9 NONTOXIC GOITER DIFFUSE 05/12/2011 KRAMER DO, KEVIN K 723.1 Cervicalgia 05/12/2011 KRAMER DO, KEVIN K 780.52 Insomnia Unspecified 05/12/2011 KRAMER DO, KEVIN K 787.20 Dysphagia, Unspecified 05/12/2011 KRAMER DO, KEVIN K 240.9 NONTOXIC GOITER DIFFUSE 05/12/2011 KRAMER DO, KEVIN K 723.1 Cervicalgia 05/12/2011 KRAMER DO, KEVIN K 780.52 Insomnia Unspecified 05/12/2011 KRAMER DO, KEVIN K 787.20 Dysphagia, Unspecified 05/12/2011 KRAMER DO, KEVIN K 240.9 NONTOXIC GOITER DIFFUSE 05/12/2011 KRAMER DO, KEVIN K 723.1 Cervicalgia 05/12/2011 KRAMER DO, KEVIN K 780.52 Insomnia Unspecified 05/12/2011 KRAMER DO, KEVIN K 787.20 Dysphagia, Unspecified 05/12/2011 240.9 NONTOXIC GOITER DIFFUSE 05/12/2011 723.1 Cervicalgia 05/12/2011 780.52 Insomnia Unspecified 05/12/2011 787.20 Dysphagia, Unspecified 05/12/2011 NILAM DOVER APRN 240.9 NONTOXIC GOITER DIFFUSE 05/12/2011 NILAM DOVER APRN 723.1 Cervicalgia 05/12/2011 NILAM DOVER APRN 780.52 Insomnia Unspecified 05/12/2011 NILAM DOVER APRN 787.20 Dysphagia, Unspecified 05/12/2011 KRAMER DO, KEVIN K 240.9 NONTOXIC GOITER DIFFUSE 05/12/2011 KRAMER DO, KEVIN K 723.1 Cervicalgia 05/12/2011 KRAMER DO, KEVIN K 780.52 Insomnia Unspecified 05/12/2011 KRAMER DO, KEVIN K 787.20 Dysphagia, Unspecified 05/12/2011 KRAMER DO, KEVIN K 240.9 NONTOXIC GOITER DIFFUSE 05/12/2011 KRAMER DO, KEVIN K 723.1 Cervicalgia 05/12/2011 KRAMER DO, KEVIN K 780.52 Insomnia Unspecified 05/12/2011 KRAMER DO, KEVIN K 787.20 Dysphagia, Unspecified 05/12/2011 NILAM DOVER APRN 240.9 NONTOXIC GOITER DIFFUSE 05/12/2011 NILAM DOVER APRN 723.1 Cervicalgia 05/12/2011 NILAM DOVER APRN 780.52 Insomnia Unspecified 05/12/2011 NILAM DOVER APRN 787.20 Dysphagia, Unspecified 05/12/2011 KRAMER DO, KEVIN K 240.9 NONTOXIC GOITER DIFFUSE 05/12/2011 KRAMER DO, KEVIN K 723.1 Cervicalgia 05/12/2011 KRAMER DO, KEVIN K 780.52 Insomnia Unspecified 05/12/2011 KRAMER DO, KEVIN K 787.20 Dysphagia, Unspecified 05/12/2011 CASAS JR NORRIS 240.9 NONTOXIC GOITER DIFFUSE 05/12/2011 CASAS JR NORRIS J 723.1 Cervicalgia 05/12/2011 JR CASAS APRN 780.52 Insomnia Unspecified 05/12/2011 CASAS JR NORRIS 787.20 Dysphagia, Unspecified 05/14/2011 785.1 Palpitations 05/14/2011 DOMINGO FLORENCE APRN R 785.1 Palpitations 05/14/2011 CHARITY EDGAR MD, S[place] 785.1 Palpitations 05/14/2011 785.1 Palpitations 05/14/2011 785.1 Palpitations 05/14/2011 785.1 Palpitations 05/14/2011 KRAMER DO, KEVIN K 785.1 Palpitations 05/14/2011 KRAMER DO, KEVIN K 785.1 Palpitations 05/14/2011 KRAMER DO, KEVNI K 785.1 Palpitations 05/14/2011 785.1 Palpitations 05/14/2011 NILAM DOVER APRN 785.1 Palpitations 05/14/2011 KRAMER DO, KEVIN K 785.1 Palpitations 05/14/2011 KRAMER DO, KEVIN K 785.1 Palpitations 05/14/2011 NILAM DOVER APRN 785.1 Palpitations 05/14/2011 KRAMER DO, KEVIN K 785.1 Palpitations 05/14/2011 JR CASAS APRN 785.1 Palpitations 08/07/2011 414.01 CORONARY ATHEROSCLEROSIS OF [place] CORONARY ARTERY 08/07/2011 DOMINGO FLORENCE APRN 414.01 CORONARY ATHEROSCLEROSIS OF [place] CORONARY ARTERY 08/07/2011 EASH HERVE MD, SANTO A 414.01 CORONARY ATHEROSCLEROSIS OF [place] CORONARY ARTERY 08/07/2011 414.01 CORONARY ATHEROSCLEROSIS OF [place] CORONARY ARTERY 08/07/2011 414.01 CORONARY ATHEROSCLEROSIS OF [place] CORONARY ARTERY 08/07/2011 414.01 CORONARY ATHEROSCLEROSIS OF [place] CORONARY ARTERY 08/07/2011 KRAMER DO KEVIN K 414.01 CORONARY ATHEROSCLEROSIS OF [place] CORONARY ARTERY 08/07/2011 KRAMER DO KEVIN K 414.01 CORONARY ATHEROSCLEROSIS OF [place] CORONARY ARTERY 08/07/2011 KRAMER DO KEVIN K 414.01 CORONARY ATHEROSCLEROSIS OF [place] CORONARY ARTERY 08/07/2011 414.01 CORONARY ATHEROSCLEROSIS OF [place] CORONARY ARTERY 08/07/2011 NILAM DOVER APRN 414.01 CORONARY ATHEROSCLEROSIS OF [place] CORONARY ARTERY 08/07/2011 KRAMER ALICIA SALVADORA K 414.01 CORONARY ATHEROSCLEROSIS OF [place] CORONARY ARTERY 08/07/2011 KRAMER ALICIA SALVADORA K 414.01 CORONARY ATHEROSCLEROSIS OF [place] CORONARY ARTERY 08/07/2011 NILAM DOVER APRN 414.01 CORONARY ATHEROSCLEROSIS OF [place] CORONARY ARTERY 08/07/2011 KRAMER ALICIA SALVADORA K 414.01 CORONARY ATHEROSCLEROSIS OF [place] CORONARY ARTERY 08/07/2011 JR CASAS APRN 414.01 CORONARY ATHEROSCLEROSIS OF [place] CORONARY ARTERY 09/08/2011 382.00 Otitis Media Acute Suppurative 09/08/2011 477.0 ALLERGIC RHINITIS - POLLEN 09/08/2011 493.92 Asthma With Acute Exacerbation 09/08/2011 DOMINGO FLORENCE APRN R 382.00 Otitis Media Acute Suppurative 09/08/2011 ERASMO FLORENCE APRNIA R 477.0 ALLERGIC RHINITIS - POLLEN 09/08/2011 DOMINGO FLORENCE APRN R 493.92 Asthma With Acute Exacerbation 09/08/2011 SANTO BAIRD MD A 382.00 Otitis Media Acute Suppurative 09/08/2011 SATNO BAIRD MD 477.0 ALLERGIC RHINITIS - POLLEN 09/08/2011 SANTO BAIRD MD 493.92 Asthma With Acute Exacerbation 09/08/2011 382.00 Otitis Media Acute Suppurative 09/08/2011 477.0 ALLERGIC RHINITIS - POLLEN 09/08/2011 493.92 Asthma With Acute Exacerbation 09/08/2011 382.00 Otitis Media Acute Suppurative 09/08/2011 477.0 ALLERGIC RHINITIS - POLLEN 09/08/2011 493.92 Asthma With Acute Exacerbation 09/08/2011 382.00 Otitis Media Acute Suppurative 09/08/2011 477.0 ALLERGIC RHINITIS - POLLEN 09/08/2011 493.92 Asthma With Acute Exacerbation 09/08/2011 KRAMER DO, KEVIN K 382.00 Otitis Media Acute Suppurative 09/08/2011 KRAMER DO, KEVIN K 477.0 ALLERGIC RHINITIS - POLLEN 09/08/2011 KRAMER DO, KEVIN K 493.92 Asthma With Acute Exacerbation 09/08/2011 KRAMER DO, KEVIN K 382.00 Otitis Media Acute Suppurative 09/08/2011 KRAMER DO, KEVIN K 477.0 ALLERGIC RHINITIS - POLLEN 09/08/2011 KRAMER DO, KEVIN K 493.92 Asthma With Acute Exacerbation 09/08/2011 KRAMER DO, KEVIN K 382.00 Otitis Media Acute Suppurative 09/08/2011 KRAMER DO, KEVIN K 477.0 ALLERGIC RHINITIS - POLLEN 09/08/2011 KRAMER DO, KEVIN K 493.92 Asthma With Acute Exacerbation 09/08/2011 382.00 Otitis Media Acute Suppurative 09/08/2011 477.0 ALLERGIC RHINITIS - POLLEN 09/08/2011 493.92 Asthma With Acute Exacerbation 09/08/2011 DOVER JR NILAM R 382.00 Otitis Media Acute Suppurative 09/08/2011 DOVER JR NILAM R 477.0 ALLERGIC RHINITIS - POLLEN 09/08/2011 DOVER NILAM NORRIS R 493.92 Asthma With Acute Exacerbation 09/08/2011 KRAMER DO, KEVIN K 382.00 Otitis Media Acute Suppurative 09/08/2011 KRAMER DO, KEVIN K 477.0 ALLERGIC RHINITIS - POLLEN 09/08/2011 KRAMER DO, KEVIN K 493.92 Asthma With Acute Exacerbation 09/08/2011 KRAMER DO, KEVIN K 382.00 Otitis Media Acute Suppurative 09/08/2011 KRAMER DO, KEVIN K 477.0 ALLERGIC RHINITIS - POLLEN 09/08/2011 KRAMER DO, KEVIN K 493.92 Asthma With Acute Exacerbation 09/08/2011 DOVER FLOOR INSPECTOR, NILAM R 382.00 Otitis Media Acute Suppurative 09/08/2011 DOVER FLOOR INSPECTOR, NILAM R 477.0 ALLERGIC RHINITIS - POLLEN 09/08/2011 DOVER JR NILAM R 493.92 Asthma With Acute Exacerbation 09/08/2011 KRAMER DO, KEVIN K 382.00 Otitis Media Acute Suppurative 09/08/2011 KRAMER DO, KEVIN K 477.0 ALLERGIC RHINITIS - POLLEN 09/08/2011 KRAMER DO, KEVIN K 493.92 Asthma With Acute Exacerbation 09/08/2011 JR CASAS APRN 382.00 Otitis Media Acute Suppurative 09/08/2011 JR CASAS APRN 477.0 ALLERGIC RHINITIS - POLLEN 09/08/2011 JR CASAS APRN 493.92 Asthma With Acute Exacerbation 10/27/2011 300.00 anxiety 10/27/2011 781.0 Involuntary Movements [sx] 10/27/2011 DOMINGO FLORENCE APRN R 300.00 anxiety 10/27/2011 DOMINGO FLORENCE APRN R 781.0 Involuntary Movements [sx] 10/27/2011 CHARITY EDGAR MD, SANTO [place] 300.00 anxiety 10/27/2011 CHARITY EDGAR MD, SANTO [place] 781.0 Involuntary Movements [sx] 10/27/2011 300.00 anxiety 10/27/2011 781.0 Involuntary Movements [sx] 10/27/2011 300.00 anxiety 10/27/2011 781.0 Involuntary Movements [sx] 10/27/2011 300.00 anxiety 10/27/2011 781.0 Involuntary Movements [sx] 10/27/2011 WILLIAMS DO, KEVIN K 300.00 anxiety 10/27/2011 KRAMER DO, KEVIN K 781.0 Involuntary Movements [sx] 10/27/2011 KRAMER DO, KEVIN K 300.00 anxiety 10/27/2011 KRAMER DO, KEVIN K 781.0 Involuntary Movements [sx] 10/27/2011 KRAMER DO, KEVIN K 300.00 anxiety 10/27/2011 KRAMER DO, KEVIN K 781.0 Involuntary Movements [sx] 10/27/2011 300.00 anxiety 10/27/2011 781.0 Involuntary Movements [sx] 10/27/2011 NILAM DOVER APRN 300.00 anxiety 10/27/2011 NILAM DOVER APRN 781.0 Involuntary Movements [sx] 10/27/2011 KRAMER DOALICIAA K 300.00 anxiety 10/27/2011 KRAMER DO, KEVIN K 781.0 Involuntary Movements [sx] 10/27/2011 KRAMER DO, KEVIN K 300.00 anxiety 10/27/2011 WILLIAMS SALVADOR KEVIN K 781.0 Involuntary Movements [sx] 10/27/2011 NILAM DOVER APRN 300.00 anxiety 10/27/2011 NILAM DOVER APRN 781.0 Involuntary Movements [sx] 10/27/2011 KEVIN KRAMER DO K 300.00 anxiety 10/27/2011 ALICIA KRAMER DOA K 781.0 Involuntary Movements [sx] 10/27/2011 JR CASAS APRN 300.00 anxiety 10/27/2011 JR CASAS APRN 781.0 Involuntary Movements [sx] 01/08/2012 729.1 muscle aches, generalized (myalgias) 01/08/2012 DOMINGO FLORENCE APRN 729.1 muscle aches, generalized (myalgias) 01/08/2012 CHARITY EDGAR MD, SANTO A 729.1 muscle aches, generalized (myalgias) 01/08/2012 729.1 muscle aches, generalized (myalgias) 01/08/2012 729.1 muscle aches, generalized (myalgias) 01/08/2012 729.1 muscle aches, generalized (myalgias) 01/08/2012 KEVIN KRAMER DO K 729.1 muscle aches, generalized (myalgias) 01/08/2012 ALICIA KRAMER DOA K 729.1 muscle aches, generalized (myalgias) 01/08/2012 ALICIA KRAMER DOA K 729.1 muscle aches, generalized (myalgias) 01/08/2012 729.1 muscle aches, generalized (myalgias) 01/08/2012 NILAM DOVER APRN 729.1 muscle aches, generalized (myalgias) 01/08/2012 ALICIA KRAMER DOA K 729.1 muscle aches, generalized (myalgias) 01/08/2012 ALICIA KRAMER DOA K 729.1 muscle aches, generalized (myalgias) 01/08/2012 NILAM DOVER APRN 729.1 muscle aches, generalized (myalgias) 01/08/2012 ALICIA KRAMER DOA K 729.1 muscle aches, generalized (myalgias) 01/08/2012 JR CASAS APRN 729.1 muscle aches, generalized (myalgias) 01/19/2012 782.3 soft tissue swelling (non-joint) [Sx] 01/19/2012 DOMINGO FLORENCE APRN 782.3 soft tissue swelling (non-joint) [Sx] 01/19/2012 SANTO BAIRD MD 782.3 soft tissue swelling (non-joint) [Sx] 01/19/2012 782.3 soft tissue swelling (non-joint) [Sx] 01/19/2012 782.3 soft tissue swelling (non-joint) [Sx] 01/19/2012 782.3 soft tissue swelling (non-joint) [Sx] 01/19/2012 KEVIN KRAMER DO K 782.3 soft tissue swelling (non-joint) [Sx] 01/19/2012 ALICIA KRAMER DOA K 782.3 soft tissue swelling (non-joint) [Sx] 01/19/2012 KEVIN KRAMER DO K 782.3 soft tissue swelling (non-joint) [Sx] 01/19/2012 782.3 soft tissue swelling (non-joint) [Sx] 01/19/2012 NILAM DOVER APRN 782.3 soft tissue swelling (non-joint) [Sx] 01/19/2012 KEVIN KRAMER DO K 782.3 soft tissue swelling (non-joint) [Sx] 01/19/2012 KEVIN KRAMER DO 782.3 soft tissue swelling (non-joint) [Sx] 01/19/2012 NILAM DOVER APRN 782.3 soft tissue swelling (non-joint) [Sx] 01/19/2012 KEVIN KRAMER DO 782.3 soft tissue swelling (non-joint) [Sx] 01/19/2012 JR CASAS APRN 782.3 soft tissue swelling (non-joint) [Sx] 02/10/2012 780.99 OTHER GENERAL SYMPTOMS 02/10/2012 DOMINGO FLORENCE APRN 780.99 OTHER GENERAL SYMPTOMS 02/10/2012 SANTO BAIRD MD 780.99 OTHER GENERAL SYMPTOMS 02/10/2012 780.99 OTHER GENERAL SYMPTOMS 02/10/2012 780.99 OTHER GENERAL SYMPTOMS 02/10/2012 780.99 OTHER GENERAL SYMPTOMS 02/10/2012 KRAMER DO, KEVIN K 780.99 OTHER GENERAL SYMPTOMS 02/10/2012 KRAMER DO, KEVIN K 780.99 OTHER GENERAL SYMPTOMS 02/10/2012 KRAMER DO, KEVIN K 780.99 OTHER GENERAL SYMPTOMS 02/10/2012 780.99 OTHER GENERAL SYMPTOMS 02/10/2012 NILAM DOVER APRN 780.99 OTHER GENERAL SYMPTOMS 02/10/2012 KRAMER DO, KEVIN K 780.99 OTHER GENERAL SYMPTOMS 02/10/2012 KRAMER DO, KEVIN K 780.99 OTHER GENERAL SYMPTOMS 02/10/2012 DOVERNILAM DEL CID APRN 780.99 OTHER GENERAL SYMPTOMS 02/10/2012 KRAMER DO, KEVIN K 780.99 OTHER GENERAL SYMPTOMS 02/10/2012 JR CASAS APRN 780.99 OTHER GENERAL SYMPTOMS 02/24/2012 461.9 Sinusitis Acute 02/24/2012 493.92 ASTHMA WITH ACUTE EXACERBATION 02/24/2012 DOMINGO FLORENCE APRN R 461.9 Sinusitis Acute 02/24/2012 DOMINGO FLORENCE APRN R 493.92 ASTHMA WITH ACUTE EXACERBATION 02/24/2012 SANTO BAIRD MD 461.9 Sinusitis Acute 02/24/2012 SANTO BAIRD MD 493.92 ASTHMA WITH ACUTE EXACERBATION 02/24/2012 461.9 Sinusitis Acute 02/24/2012 493.92 ASTHMA WITH ACUTE EXACERBATION 02/24/2012 461.9 Sinusitis Acute 02/24/2012 493.92 ASTHMA WITH ACUTE EXACERBATION 02/24/2012 461.9 Sinusitis Acute 02/24/2012 493.92 ASTHMA WITH ACUTE EXACERBATION 02/24/2012 RKAMER DO, KEVIN K 461.9 Sinusitis Acute 02/24/2012 KRAMER DO, KEVIN K 493.92 ASTHMA WITH ACUTE EXACERBATION 02/24/2012 KRAMER DO, KEVIN K 461.9 Sinusitis Acute 02/24/2012 KRAMER DO, KEVIN K 493.92 ASTHMA WITH ACUTE EXACERBATION 02/24/2012 KRAMER DO, KEVIN K 461.9 Sinusitis Acute 02/24/2012 KRAMER DO, KEVIN K 493.92 ASTHMA WITH ACUTE EXACERBATION 02/24/2012 461.9 Sinusitis Acute 02/24/2012 493.92 ASTHMA WITH ACUTE EXACERBATION 02/24/2012 NILAM DOVER APRN 461.9 Sinusitis Acute 02/24/2012 NILAM DOVER APRN 493.92 ASTHMA WITH ACUTE EXACERBATION 02/24/2012 KRAMER ALICIA SALVADORA K 461.9 Sinusitis Acute 02/24/2012 KRAMER DOALICIAA K 493.92 ASTHMA WITH ACUTE EXACERBATION 02/24/2012 KRAMER ALICIA SALVADORA K 461.9 Sinusitis Acute 02/24/2012 KRAMER ALICIA SALVADORA K 493.92 ASTHMA WITH ACUTE EXACERBATION 02/24/2012 NILAM DOVER APRN 461.9 Sinusitis Acute 02/24/2012 DOVERNILAM DEL CID APRN 493.92 ASTHMA WITH ACUTE EXACERBATION 02/24/2012 ALICIA KRAMER DOA K 461.9 Sinusitis Acute 02/24/2012 KRAMER ALICIA SALVADORA K 493.92 ASTHMA WITH ACUTE EXACERBATION 02/24/2012 JR CASAS APRN 461.9 Sinusitis Acute 02/24/2012 JR CASAS APRN 493.92 ASTHMA WITH ACUTE EXACERBATION 03/03/2012 496 CHRONIC OBSTRUCTIVE PULMONARY DISEASE 03/03/2012 DOMINGO FLORENCE APRN 496 CHRONIC OBSTRUCTIVE PULMONARY DISEASE 03/03/2012 CHARITY EDGAR MD, SANTO [place] 496 CHRONIC OBSTRUCTIVE PULMONARY DISEASE 03/03/2012 496 CHRONIC OBSTRUCTIVE PULMONARY DISEASE 03/03/2012 496 CHRONIC OBSTRUCTIVE PULMONARY DISEASE 03/03/2012 496 CHRONIC OBSTRUCTIVE PULMONARY DISEASE 03/03/2012 KRAMER ALICIA SALVADORA K 496 CHRONIC OBSTRUCTIVE PULMONARY DISEASE 03/03/2012 ALICIA RKAMER DOA K 496 CHRONIC OBSTRUCTIVE PULMONARY DISEASE 03/03/2012 KRAMER ALICIA SALVADORA K 496 CHRONIC OBSTRUCTIVE PULMONARY DISEASE 03/03/2012 496 CHRONIC OBSTRUCTIVE PULMONARY DISEASE 03/03/2012 NILAM DOVER APRN 496 CHRONIC OBSTRUCTIVE PULMONARY DISEASE 03/03/2012 KRAMER DO KEVIN K 496 CHRONIC OBSTRUCTIVE PULMONARY DISEASE 03/03/2012 KRAMER ALICIA SALVADORA K 496 CHRONIC OBSTRUCTIVE PULMONARY DISEASE 03/03/2012 NILAM DOVER APRN 496 CHRONIC OBSTRUCTIVE PULMONARY DISEASE 03/03/2012 KRAMER DO KEVIN K 496 CHRONIC OBSTRUCTIVE PULMONARY DISEASE 03/03/2012 JR CASAS APRN 496 CHRONIC OBSTRUCTIVE PULMONARY DISEASE 03/15/2012 785.1 palpitations 03/15/2012 787.20 difficulty swallowing (dysphagia) 03/15/2012 DOMINGO FLORENCE APRN R 785.1 palpitations 03/15/2012 DOMINGO FLORENCE APRN R 787.20 difficulty swallowing (dysphagia) 03/15/2012 CHARITY EDGAR MD, SANTO A 785.1 palpitations 03/15/2012 CHARITY EDGAR MD, SANTO A 787.20 difficulty swallowing (dysphagia) 03/15/2012 785.1 palpitations 03/15/2012 787.20 difficulty swallowing (dysphagia) 03/15/2012 785.1 palpitations 03/15/2012 787.20 difficulty swallowing (dysphagia) 03/15/2012 785.1 palpitations 03/15/2012 787.20 difficulty swallowing (dysphagia) 03/15/2012 KRAMER DO, KEVIN K 785.1 palpitations 03/15/2012 KRAMER DO, KEVIN K 787.20 difficulty swallowing (dysphagia) 03/15/2012 KRAMER DO, KEVIN K 785.1 palpitations 03/15/2012 KRAMER DO, KEVIN K 787.20 difficulty swallowing (dysphagia) 03/15/2012 KRAMER DO, KEVIN K 785.1 palpitations 03/15/2012 KRAMER DO, KEVIN K 787.20 difficulty swallowing (dysphagia) 03/15/2012 785.1 palpitations 03/15/2012 787.20 difficulty swallowing (dysphagia) 03/15/2012 NILAM DOVER APRN 785.1 palpitations 03/15/2012 NILAM DOVER APRN 787.20 difficulty swallowing (dysphagia) 03/15/2012 KRAMER DO, KEVIN K 785.1 palpitations 03/15/2012 KRAMER DO, KEVIN K 787.20 difficulty swallowing (dysphagia) 03/15/2012 KRAMER DO, KEVIN K 785.1 palpitations 03/15/2012 KRAMER DO, KEVIN K 787.20 difficulty swallowing (dysphagia) 03/15/2012 NILAM DOVER APRN 785.1 palpitations 03/15/2012 NILAM DOVER APRN 787.20 difficulty swallowing (dysphagia) 03/15/2012 KRAMER DO, KEVIN K 785.1 palpitations 03/15/2012 KRAMER DO, KEVIN K 787.20 difficulty swallowing (dysphagia) 03/15/2012 JR CASAS APRN 785.1 palpitations 03/15/2012 JR CASAS APRN 787.20 difficulty swallowing (dysphagia) 04/06/2012 491.21 CHRONIC BRONCHITIS - WITH ACUTE EXACERBATION 04/06/2012 DOMINGO FLORENCE APRN 491.21 CHRONIC BRONCHITIS - WITH ACUTE EXACERBATION 04/06/2012 CHARITY EDGAR MD, [place]ANTO [place] 491.21 CHRONIC BRONCHITIS - WITH ACUTE EXACERBATION 04/06/2012 491.21 CHRONIC BRONCHITIS - WITH ACUTE EXACERBATION 04/06/2012 491.21 CHRONIC BRONCHITIS - WITH ACUTE EXACERBATION 04/06/2012 491.21 CHRONIC BRONCHITIS - WITH ACUTE EXACERBATION 04/06/2012 KRAMER DO KEVIN K 491.21 CHRONIC BRONCHITIS - WITH ACUTE EXACERBATION 04/06/2012 KRAMER DO KEVIN K 491.21 CHRONIC BRONCHITIS - WITH ACUTE EXACERBATION 04/06/2012 KRAMER DO KEVIN K 491.21 CHRONIC BRONCHITIS - WITH ACUTE EXACERBATION 04/06/2012 491.21 CHRONIC BRONCHITIS - WITH ACUTE EXACERBATION 04/06/2012 NILAM DOVER APRN 491.21 CHRONIC BRONCHITIS - WITH ACUTE EXACERBATION 04/06/2012 KRAMER DOALICIAA K 491.21 CHRONIC BRONCHITIS - WITH ACUTE EXACERBATION 04/06/2012 ALICIA KRAMER DOA K 491.21 CHRONIC BRONCHITIS - WITH ACUTE EXACERBATION 04/06/2012 NILAM DOVER APRN 491.21 CHRONIC BRONCHITIS - WITH ACUTE EXACERBATION 04/06/2012 KRAMER DO KEVIN K 491.21 CHRONIC BRONCHITIS - WITH ACUTE EXACERBATION 04/06/2012 JR CASAS APRN 491.21 CHRONIC BRONCHITIS - WITH ACUTE EXACERBATION 10/09/2012 DOMINGO FLORENCE APRN 401.1 ESSENTIAL HYPERTENSION BENIGN 10/09/2012 CHARITY EDGAR MD, SANTO [place] 401.1 ESSENTIAL HYPERTENSION BENIGN 10/09/2012 401.1 ESSENTIAL HYPERTENSION BENIGN 10/09/2012 401.1 ESSENTIAL HYPERTENSION BENIGN 10/09/2012 401.1 ESSENTIAL HYPERTENSION BENIGN 10/09/2012 WILLIAMS DO KEVIN K 401.1 ESSENTIAL HYPERTENSION BENIGN 10/09/2012 KRAMER DO KEVIN K 401.1 ESSENTIAL HYPERTENSION BENIGN 10/09/2012 KRAMER DO, KEVIN K 401.1 ESSENTIAL HYPERTENSION BENIGN 10/09/2012 NILAM DOVER APRN 401.1 ESSENTIAL HYPERTENSION BENIGN 10/09/2012 KRAMER DO, KEVIN K 401.1 ESSENTIAL HYPERTENSION BENIGN 10/09/2012 KRAMER DO, KEVIN K 401.1 ESSENTIAL HYPERTENSION BENIGN 10/09/2012 NILAM DOVER APRN 401.1 ESSENTIAL HYPERTENSION BENIGN 10/09/2012 KRAMER DO, KEVIN K 401.1 ESSENTIAL HYPERTENSION BENIGN 10/09/2012 JR CASAS APRN 401.1 ESSENTIAL HYPERTENSION BENIGN 03/18/2013 611.71 MASTODYNIA 03/18/2013 611.71 MASTODYNIA 03/18/2013 611.71 MASTODYNIA 03/18/2013 KRAMER DO, KEVIN K 611.71 MASTODYNIA 03/18/2013 KRAMER DO, KEVIN K 611.71 MASTODYNIA 03/18/2013 KRAMER DO, KEVIN K 611.71 MASTODYNIA 03/18/2013 NILAM DOVER APRN 611.71 MASTODYNIA 03/18/2013 KRAMER DO, KEVIN K 611.71 MASTODYNIA 03/18/2013 KRAMER DO, KEVIN K 611.71 MASTODYNIA 03/18/2013 NILAM DOVER APRN 611.71 MASTODYNIA 03/18/2013 KRAMER DO, KEVIN K 611.71 MASTODYNIA 03/18/2013 JR CASAS APRN 611.71 MASTODYNIA 04/28/2013 473.9 UNSPECIFIED SINUSITIS (CHRONIC) 04/28/2013 473.9 UNSPECIFIED SINUSITIS (CHRONIC) 04/28/2013 KRAMER DOALICIAA K 473.9 UNSPECIFIED SINUSITIS (CHRONIC) 04/28/2013 KRAMER DO KEVIN K 473.9 UNSPECIFIED SINUSITIS (CHRONIC) 04/28/2013 KRAMER DOALICIAA K 473.9 UNSPECIFIED SINUSITIS (CHRONIC) 04/28/2013 NILAM DOVER APRN 473.9 UNSPECIFIED SINUSITIS (CHRONIC) 04/28/2013 KRAMER DO KEVIN K 473.9 UNSPECIFIED SINUSITIS (CHRONIC) 04/28/2013 KRAMER DOALICIAA K 473.9 UNSPECIFIED SINUSITIS (CHRONIC) 04/28/2013 NILAM DOVER APRN 473.9 UNSPECIFIED SINUSITIS (CHRONIC) 04/28/2013 KRAMER DOALICIAA K 473.9 UNSPECIFIED SINUSITIS (CHRONIC) 04/28/2013 JR CASAS APRN 473.9 UNSPECIFIED SINUSITIS (CHRONIC) 04/29/2013 410.90 UT, UNSPECIFIED 04/29/2013 786.05 SHORTNESS OF BREATH 04/29/2013 786.50 CHEST PAIN 04/29/2013 410.90 UT, UNSPECIFIED 04/29/2013 786.05 SHORTNESS OF BREATH 04/29/2013 786.50 CHEST PAIN 04/29/2013 KRAMER DO, KEVIN K 410.90 UT, UNSPECIFIED 04/29/2013 KRAMER DO, KEVIN K 786.05 SHORTNESS OF BREATH 04/29/2013 KRAMER DO, KEVIN K 786.50 CHEST PAIN 04/29/2013 KRAMER DO, KEVIN K 410.90 UT, UNSPECIFIED 04/29/2013 KRAMER DO, KEVIN K 786.05 SHORTNESS OF BREATH 04/29/2013 KRAMER DO, KEVIN K 786.50 CHEST PAIN 04/29/2013 KRAMER DO, KEVIN K 410.90 UT, UNSPECIFIED 04/29/2013 KRAMER DO, KEVIN K 786.05 SHORTNESS OF BREATH 04/29/2013 KRAMER DO, KEVIN K 786.50 CHEST PAIN 04/29/2013 DOVER FLOOR INSPECTOR, NILAM R 410.90 UT, UNSPECIFIED 04/29/2013 DOVER FLOOR INSPECTOR, NILAM R 786.05 SHORTNESS OF BREATH 04/29/2013 DOVER FLOOR INSPECTOR, NILAM R 786.50 CHEST PAIN 04/29/2013 KRAMER DO, KEVIN K 410.90 UT, UNSPECIFIED 04/29/2013 KRAMER DO, KEVIN K 786.05 SHORTNESS OF BREATH 04/29/2013 KRAMER DO, KEVIN K 786.50 CHEST PAIN 04/29/2013 KRAMER DO, KEVIN K 410.90 UT, UNSPECIFIED 04/29/2013 KRAMER DO, KEVIN K 786.05 SHORTNESS OF BREATH 04/29/2013 KRAMER DO, KEVIN K 786.50 CHEST PAIN 04/29/2013 DOVER FLOOR INSPECTOR, NILAM R 410.90 UT, UNSPECIFIED 04/29/2013 DOVER FLOOR INSPECTOR, NILAM R 786.05 SHORTNESS OF BREATH 04/29/2013 DOVER FLOOR INSPECTOR, NILAM R 786.50 CHEST PAIN 04/29/2013 KRAMER DO, KEVIN K 410.90 UT, UNSPECIFIED 04/29/2013 KRAMER DO, KEVIN K 786.05 SHORTNESS OF BREATH 04/29/2013 KRAMER DO, KEVIN K 786.50 CHEST PAIN 04/29/2013 JR CASAS APRN 410.90 UT, UNSPECIFIED 04/29/2013 JR CASAS APRN 786.05 SHORTNESS OF BREATH 04/29/2013 JR CASAS APRN 786.50 CHEST PAIN 02/02/2014 WILLIAMS SALVADOR KEVIN K 382.9 OTITIS MEDIA 02/02/2014 NILAM DOVER APRN R 382.9 OTITIS MEDIA 02/02/2014 KRAMER ALICIA SALVADORA K 382.9 OTITIS MEDIA 02/02/2014 KRAMER ALICIA SALVADORA K 382.9 OTITIS MEDIA 02/02/2014 NILAM DOVER APRN R 382.9 OTITIS MEDIA 02/02/2014 KRAMER DO, KEVIN K 382.9 OTITIS MEDIA 02/02/2014 JR CASAS APRN 382.9 OTITIS MEDIA 04/08/2014 NILAM DOVER APRN 388.70 EAR ACHE 04/08/2014 NILAM DOVER APRN 461.9 SINUSITIS ACUTE 04/08/2014 KRAMER DOALICIAA K 388.70 EAR ACHE 04/08/2014 KRAMER DOALICIAA K 461.9 SINUSITIS ACUTE 04/08/2014 KRAMER DO, KEVIN K 388.70 EAR ACHE 04/08/2014 KRAMER DO, KEVIN K 461.9 SINUSITIS ACUTE 04/08/2014 NILAM DOVER APRN 388.70 EAR ACHE 04/08/2014 DOVERNILAM DEL CID APRN R 461.9 SINUSITIS ACUTE 04/08/2014 KRAMER DO KEVIN K 388.70 EAR ACHE 04/08/2014 KRAMER DO KEVIN K 461.9 SINUSITIS ACUTE 04/08/2014 JR CASAS APRN 388.70 EAR ACHE 04/08/2014 JR CASAS APRN 461.9 SINUSITIS ACUTE 06/01/2014 KRAMER DO KEVIN K 466.0 ACUTE BRONCHITIS 06/01/2014 KRAMER DO KEVIN K 719.47 PAIN IN JOINT INVOLVING ANKLE AND FOOT 06/01/2014 KRAMER DO KEVIN K 466.0 ACUTE BRONCHITIS 06/01/2014 KRAMER DO KEVIN K 719.47 PAIN IN JOINT INVOLVING ANKLE AND FOOT 06/01/2014 NILAM DOVER APRN 466.0 ACUTE BRONCHITIS 06/01/2014 NILAM DOVER APRN 719.47 PAIN IN JOINT INVOLVING ANKLE AND FOOT 06/01/2014 KEVIN KRAMER DO 466.0 ACUTE BRONCHITIS 06/01/2014 KEVIN KRAMER DO 719.47 PAIN IN JOINT INVOLVING ANKLE AND FOOT 06/01/2014 JR CASAS APRN 466.0 ACUTE BRONCHITIS 06/01/2014 JR CASAS APRN 719.47 PAIN IN JOINT INVOLVING ANKLE AND FOOT 06/30/2014 KEVIN KRAMER DO 461.0 ACUTE MAXILLARY SINUSITIS 06/30/2014 NILAM DOVER APRN 461.0 ACUTE MAXILLARY SINUSITIS 06/30/2014 KEVIN KRAMER DO 461.0 ACUTE MAXILLARY SINUSITIS 06/30/2014 JR CASAS APRN 461.0 ACUTE MAXILLARY SINUSITIS 07/05/2014 NILAM DOVER APRN 309.81 POSTTRAUMATIC STRESS DISORDER 07/05/2014 NILAM DOVER APRN 311 DEPRESSIVE DISORDER NOS 07/05/2014 NILAM DOVER APRN 465.9 UPPER RESPIRATORY INFECTION 07/05/2014 KEVIN KRAMER DO 309.81 POSTTRAUMATIC STRESS DISORDER 07/05/2014 KEVIN KRAMER DO 311 DEPRESSIVE DISORDER NOS 07/05/2014 KEVIN KRAMER DO 465.9 UPPER RESPIRATORY INFECTION 07/05/2014 JR CASAS APRN 309.81 POSTTRAUMATIC STRESS DISORDER 07/05/2014 JR CASAS APRN 311 DEPRESSIVE DISORDER NOS 07/05/2014 JR CASAS APRN 465.9 UPPER RESPIRATORY INFECTION 02/08/2015 Ot 242.90 02/08/2015 Ot 745.5 02/08/2015 Ot 780.79 02/08/2015 Ot 782.1 02/08/2015 Ot 790.29 02/08/2015 Ot 793.99 02/08/2015 Ot 562.11 02/08/2015 Ot 240.9 02/08/2015 Ot 786.50 02/08/2015 Ot 493.90 02/08/2015 Ot 782.3 02/08/2015 Ot 242.90 02/08/2015 MAURILIO CAMERON APRN Ot 611.71 02/08/2015 KRISTYN DHILLON Ot 414.00 02/08/2015 ARTEMIO DHILLONDITH Sonia Ot 242.90 02/08/2015 TEN PA, KRISTYN Scott Ot 401.1 02/08/2015 TEN PA, KRISTYN Scott Ot 496 02/08/2015 TEN PA, KRISTYN Scott Ot 786.05 02/08/2015 TEN PA, KRISTYN Sonia Ot 786.50 02/08/2015 SANDER POLK APRN Ot 435.9 02/13/2015 Ot 242.90 02/13/2015 Ot 745.5 02/13/2015 Ot 780.79 02/13/2015 Ot 782.1 02/13/2015 Ot 790.29 02/13/2015 Ot 793.99 02/13/2015 Ot 562.11 02/13/2015 Ot 240.9 02/13/2015 Ot 786.50 02/13/2015 Ot 493.90 02/13/2015 Ot 782.3 02/13/2015 Ot 242.90 02/13/2015 MAURILIO CAMERON APRN Ot 611.71 02/13/2015 TEN PA, KRISTYN Scott Ot 414.00 02/13/2015 TEN PA, KRISTYN Scott Ot 242.90 02/13/2015 TEN PA, KRISTYN Scott Ot 401.1 02/13/2015 TEN PA, KRISTYN Scott Ot 496 02/13/2015 TEN PA, KRISTYN Scott Ot 786.05 02/13/2015 TEN PA, KRISTYN Sonia Ot 786.50 02/13/2015 SANDER POLK APRN Ot 435.9 02/14/2015 Ot 242.90 02/14/2015 Ot 745.5 02/14/2015 Ot 780.79 02/14/2015 Ot 782.1 02/14/2015 Ot 790.29 02/14/2015 Ot 793.99 02/14/2015 Ot 562.11 02/14/2015 Ot 240.9 02/14/2015 Ot 786.50 02/14/2015 Ot 493.90 02/14/2015 Ot 782.3 02/14/2015 Ot 242.90 02/14/2015 MAURILIO CAMERON APRN Ot 611.71 02/14/2015 TEN RIVERA, KRISTYN K Ot 414.00 02/14/2015 TEN PA, KRISTYN K Ot 242.90 02/14/2015 TEN PA, KRISTYN K Ot 401.1 02/14/2015 TEN PA, KRISTYN Sonia Ot 496 02/14/2015 TEN RIVERA, KRISTYN Sonia Ot 786.05 02/14/2015 TEN PA, KRISTYN Sonia Ot 786.50 02/14/2015 SANDER POLK FLOOR INSPECTOR Ot 435.9 03/29/2015 ALICIA ANDREASIE E FLOOR INSPECTOR Ot 253.9 03/29/2015 HELLALICIA MORANSIE E FLOOR INSPECTOR Ot 382.9 03/29/2015 ALICIA ANDREASIE E FLOOR INSPECTOR Ot 473.9 03/29/2015 ALICIA ANDREASIE E FLOOR INSPECTOR Ot 728.87 03/29/2015 ALICIA ANDREASIE E FLOOR INSPECTOR Ot 780.99 03/29/2015 EMRE HUEY E FLOOR INSPECTOR Ot 781.0 04/06/2015 EMRE HUEY E FLOOR INSPECTOR Ot 253.9 04/06/2015 HELLLUISA HUEY E FLOOR INSPECTOR Ot 382.9 04/06/2015 HELCHRISTIAN HUEY E FLOOR INSPECTOR Ot 473.9 04/06/2015 HELCHRISTIAN HUEY E FLOOR INSPECTOR Ot 728.87 04/06/2015 ALICIA ANDREASIE E FLOOR INSPECTOR Ot 780.99 04/06/2015 ALICIA ANDREASIE E FLOOR INSPECTOR Ot 781.0 11/07/2015 Ot 242.90 11/07/2015 Ot 745.5 11/07/2015 Ot 780.79 11/07/2015 Ot 782.1 11/07/2015 Ot 790.29 11/07/2015 Ot 793.99 11/07/2015 Ot 562.11 11/07/2015 Ot 240.9 11/07/2015 Ot 786.50 11/07/2015 Ot 493.90 11/07/2015 Ot 782.3 11/07/2015 Ot 242.90 11/07/2015 MAURILIO CAMERON FLOOR INSPECTOR Ot 611.71 11/07/2015 TEN RIVERA, KRISTYN Scott Ot 414.00 11/07/2015 TEN PA, KRISTYN Sonia Ot 242.90 11/07/2015 TEN PA, KRISTYN Scott Ot 401.1 11/07/2015 TEN PA, KRISTYN Scott Ot 496 11/07/2015 TEN PA, KRISTYN Scott Ot 786.05 11/07/2015 TEN PA, KRISTYN K Ot 786.50 11/07/2015 SANDER POLK APRN Ot 435.9 12/05/2015 NILAM DOVER Ot M16.0 01/25/2016 BHUPINDER SHORT MD Ot I10 ESSENTIAL (PRIMARY) HYPERTENSION 01/25/2016 BHUPINDER SHORT MD Ot I48.0 PAROXYSMAL ATRIAL FIBRILLATION 01/25/2016 BHUPINDER SHORT MD Ot J44.9 CHRONIC OBSTRUCTIVE PULMONARY DISEASE, U 01/25/2016 BHUPINDER SHORT MD Ot Z86.73 PRSNL HX OF TIA (TIA), AND CEREB INFRC W 01/25/2016 BHUPINDER SHORT MD Ot I10 ESSENTIAL (PRIMARY) HYPERTENSION 01/25/2016 BHUPINDER SHORT MD Ot I48.0 PAROXYSMAL ATRIAL FIBRILLATION 01/25/2016 BHUPINDER SHORT MD Ot J44.9 CHRONIC OBSTRUCTIVE PULMONARY DISEASE, U 01/25/2016 BHUPINDER SHORT MD Ot Q21.1 ATRIAL SEPTAL DEFECT 01/25/2016 BHUPINDER SHORT MD Ot Z86.73 PRSNL HX OF TIA (TIA), AND CEREB INFRC W 02/14/2016 SVETA COOK 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 Ot I48.91 UNSPECIFIED ATRIAL FIBRILLATION 02/14/2016 HUEY ANDREA APRN Ot E05.90 THYROTOXICOSIS, 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 THYROTOXIC 02/29/2016 PAMELA LAROSE FACC, [place] RAMIREZ CCDS Ot E05.90 THYROTOXICOSIS, 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 THYROTOXIC 02/29/2016 PAMELA LAROSE FACC, [place] LEUNGP CCDS Ot I10 ESSENTIAL (PRIMARY) HYPERTENSION 02/29/2016 PAMELA LAROSE FACC, [place] LEUNGP CCDS Ot I48.91 UNSPECIFIED ATRIAL FIBRILLATION 02/29/2016 PAMELA ALROSE FACC, [place] LEUNGP CCDS Ot J44.9 CHRONIC OBSTRUCTIVE PULMONARY DISEASE, U 02/29/[address] [facility], ALI FACP CCDS Ot J45.909 UNSPECIFIED ASTHMA, UNCOMPLICATED 02/29/[address] [facility], ALI FACP CCDS Ot Z86.73 PRSNL HX OF TIA (TIA), AND CEREB INFRC W 02/29/[address] [facility], ALI FACP CCDS Ot E05.90 THYROTOXICOSIS, 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 THYROTOXIC 02/29/[address] [facility], ALI FACP CCDS Ot I10 ESSENTIAL (PRIMARY) HYPERTENSION 02/29/[address] [facility], ALI FACP CCDS Ot I48.91 UNSPECIFIED ATRIAL FIBRILLATION 02/29/[address] [facility], ALI FACP CCDS Ot J44.9 CHRONIC OBSTRUCTIVE PULMONARY DISEASE, U 02/29/[address] [facility], ALI FACP CCDS Ot J45.909 UNSPECIFIED ASTHMA, UNCOMPLICATED 02/29/[address] [facility], ALI FACP CCDS Ot Z86.73 PRSNL HX OF TIA (TIA), AND CEREB INFRC W 03/10/2016 BAIMASVETA L 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 Ot E05.90 THYROTOXICOSIS, 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 THYROTOXIC 03/10/2016 BAIMAGLORIASVETA L 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 Ot I10 ESSENTIAL (PRIMARY) HYPERTENSION 03/10/2016 GLORIA COOKHER L 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 Ot I48.0 PAROXYSMAL ATRIAL FIBRILLATION 03/10/2016 NIDIAJORDYNGLORIASVETA L 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 Ot J44.9 CHRONIC OBSTRUCTIVE PULMONARY DISEASE, U 03/10/2016 SVETA COOK L 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 Ot Z79.01 REGIONAL ACCOUNT MANAGER (CURRENT) USE OF ANTICOAGULANT 03/10/2016 BAISVETA COBB L 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 Ot Z86.73 PRSNL HX OF TIA (TIA), AND CEREB INFRC W 03/14/2016 PUMA DO, BILL R Ot R94.6 ABNORMAL RESULTS OF THYROID FUNCTION TRUPTI 03/15/2016 BAIMAGLORIASVETA L 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 Ot I48.91 UNSPECIFIED ATRIAL FIBRILLATION 03/15/2016 HUEY ANDREA FLOOR INSPECTOR Ot E05.90 THYROTOXICOSIS, 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 THYROTOXIC 03/19/2016 PUMA DO, BILL R Ot R94.6 ABNORMAL RESULTS OF THYROID FUNCTION TRUPTI 04/10/2016 BAISVETA COBB L 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 Ot E05.90 THYROTOXICOSIS, 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 THYROTOXIC 04/10/2016 NIDIASVETA COBB 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 Ot I10 ESSENTIAL (PRIMARY) HYPERTENSION 04/10/2016 NIDIASVETA COBB 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 Ot I48.0 PAROXYSMAL ATRIAL FIBRILLATION 04/10/2016 SVETA COOK 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 Ot J44.9 CHRONIC OBSTRUCTIVE PULMONARY DISEASE, U 04/10/2016 SVETA COOK 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 Ot Z79.01 REGIONAL ACCOUNT MANAGER (CURRENT) USE OF ANTICOAGULANT 04/10/2016 SVETA COOK 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 Ot Z86.73 PRSNL HX OF TIA (TIA), AND CEREB INFRC W 04/10/2016 BILL BARTHOLOMEW DO R Ot R94.6 ABNORMAL RESULTS OF THYROID FUNCTION TRUPTI 06/11/2016 BILL BARTHOLOMEW DO R Ot R94.6 ABNORMAL RESULTS OF THYROID FUNCTION TRUPTI 07/30/2016 Ot 562.11 DIVERTICULITIS COLON (W/O MENT OF HEMORR 07/30/2016 Ot 240.9 GOITER NOS 07/30/2016 Ot 786.50 CHEST PAIN NOS 07/30/2016 Ot 493.90 ASTHMA, UNSPECIFIED 07/30/2016 Ot 782.3 EDEMA 07/30/2016 Ot 242.90 THYROTOX NOS NO CRISIS 07/30/2016 RAKESHMAURILIO PIERCE FLOOR INSPECTOR Ot 611.71 MASTODYNIA 07/30/2016 KRISTYN DHILLON Ot 414.00 CORON ATHEROSCLER NOS TYPE VESSEL, NATIV 07/30/2016 KRISTYN DHILLON Ot 242.90 THYROTOX NOS NO CRISIS 07/30/2016 KRISTYN DHILLON Ot 401.1 BENIGN HYPERTENSION 07/30/2016 KRISTYN DHILLON Ot 496 CHR AIRWAY OBSTRUCT NEC 07/30/2016 KRISTYN DHILLON Ot 786.05 SHORTNESS OF BREATH 07/30/2016 KRISTYN DHILLON Ot 786.50 CHEST PAIN NOS 07/30/2016 SANDER POLK FLOOR INSPECTOR Ot 435.9 TRANS CEREB ISCHEMIA NOS 07/30/2016 NILAM DOVER Ot M16.0 BILATERAL PRIMARY OSTEOARTHRITIS OF HIP 07/30/2016 SVETA COOKP Ot I48.91 UNSPECIFIED ATRIAL FIBRILLATION 07/30/2016 HUEY ANDREA APRN Ot E05.90 THYROTOXICOSIS, 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 THYROTOXIC 07/30/2016 SVETA COOK 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 Ot E05.90 THYROTOXICOSIS, 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 THYROTOXIC 07/30/2016 SVETA COOK 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 Ot I10 ESSENTIAL (PRIMARY) HYPERTENSION 07/30/2016 SVETA COOK 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 Ot I48.0 PAROXYSMAL ATRIAL FIBRILLATION 07/30/2016 SVETA COOK 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 Ot J44.9 CHRONIC OBSTRUCTIVE PULMONARY DISEASE, U 07/30/2016 SVETA COOK 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 Ot Z79.01 GROUP HOME (CURRENT) USE OF ANTICOAGULANT 07/30/2016 SVETA COOK 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 Ot Z86.73 PRSNL HX OF TIA (TIA), AND CEREB INFRC W 07/30/2016 BILL BARTHOLOMEW DO Ot R94.6 ABNORMAL RESULTS OF THYROID FUNCTION TRUPTI 07/30/2016 BILL BARTHOLOMEW DO Ot R94.6 ABNORMAL RESULTS OF THYROID FUNCTION TRUPTI 07/31/2016 BILL BARTHOLOMEW DO R Ot E05.90 THYROTOXICOSIS, 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 THYROTOXIC 08/28/2016 PUMABILL OROZCO DO R Ot E05.90 THYROTOXICOSIS, 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 THYROTOXIC 09/17/2016 Ot 240.9 GOITER NOS 09/17/2016 Ot 786.50 CHEST PAIN NOS 09/17/2016 Ot 493.90 ASTHMA, UNSPECIFIED 09/17/2016 Ot 782.3 EDEMA 09/17/2016 Ot 242.90 THYROTOX NOS NO CRISIS 09/17/2016 MAURILIO CAMERON APRN Ot 611.71 MASTODYNIA 09/17/2016 KRISTYN DHILLON Ot 414.00 CORON ATHEROSCLER NOS TYPE VESSEL, NATIV 09/17/2016 KRISTYN DHILLON Ot 242.90 THYROTOX NOS NO CRISIS 09/17/2016 KRISTYN DHILLON Ot 401.1 BENIGN HYPERTENSION 09/17/2016 KRISTYN DHILLON Ot 496 CHR AIRWAY OBSTRUCT NEC 09/17/2016 KRISTYN DHILLON Ot 786.05 SHORTNESS OF BREATH 09/17/2016 KRISTYN DHILLON Ot 786.50 CHEST PAIN NOS 09/17/2016 SANDER POLK FLOOR INSPECTOR Ot 435.9 TRANS CEREB ISCHEMIA NOS 09/17/2016 DOVER, NILAM Kilo TY Ot M16.0 BILATERAL PRIMARY OSTEOARTHRITIS OF HIP 09/17/2016 BAIJORDYN SVETA L 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 Ot I48.91 UNSPECIFIED ATRIAL FIBRILLATION 09/17/2016 HUEY ANDREA FLOOR INSPECTOR Ot E05.90 THYROTOXICOSIS, 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 THYROTOXIC 09/17/2016 BAIMA, SVETA L 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 Ot E05.90 THYROTOXICOSIS, 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 THYROTOXIC 09/17/2016 BAIMA, SVETA L 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 Ot I10 ESSENTIAL (PRIMARY) HYPERTENSION 09/17/2016 BAIMA SVETA L 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 Ot I48.0 PAROXYSMAL ATRIAL FIBRILLATION 09/17/2016 BAIJORDYN SVETA L 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 Ot J44.9 CHRONIC OBSTRUCTIVE PULMONARY DISEASE, U 09/17/2016 JOEY SVETA L 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 Ot Z79.01 REGIONAL ACCOUNT MANAGER (CURRENT) USE OF ANTICOAGULANT 09/17/2016 GLORIA COOKHER L 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 Ot Z86.73 PRSNL HX OF TIA (TIA), AND CEREB INFRC W 09/17/2016 BILL BARTHOLOMEW DO Ot R94.6 ABNORMAL RESULTS OF THYROID FUNCTION TRUPTI 09/17/2016 BILL BARTHOLOMEW DO Ot R94.6 ABNORMAL RESULTS OF THYROID FUNCTION TRUPTI 09/17/2016 BILL BARTHOLOMEW DO Ot E05.90 THYROTOXICOSIS, 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 THYROTOXIC 01/13/2017 DEGRAFFELOGANDURAN BRITTNEY Ochoa Ot R05 COUGH 01/13/2017 Ot 786.50 CHEST PAIN NOS 01/13/2017 Ot 493.90 ASTHMA, UNSPECIFIED 01/13/2017 Ot 782.3 EDEMA 01/13/2017 Ot 242.90 THYROTOX NOS NO CRISIS 01/13/2017 MAURILIO CAMERON FLOOR INSPECTOR Ot 611.71 MASTODYNIA 01/13/2017 KRISTYN DHILLON Ot 414.00 CORON ATHEROSCLER NOS TYPE VESSEL, NATIV 01/13/2017 KRISTYN DHILLON Ot 242.90 THYROTOX NOS NO CRISIS 01/13/2017 KRISTYN DHILLON Ot 401.1 BENIGN HYPERTENSION 01/13/2017 KRISTYN DHILLON Ot 496 CHR AIRWAY OBSTRUCT NEC 01/13/2017 KRISTYN DHILLON Ot 786.05 SHORTNESS OF BREATH 01/13/2017 KRISTYN DHILLON Ot 786.50 CHEST PAIN NOS 01/13/2017 SANDER POLK FLOOR INSPECTOR Ot 435.9 TRANS CEREB ISCHEMIA NOS 01/13/2017 JAZZMINE NILAM Kilo TY Ot M16.0 BILATERAL PRIMARY OSTEOARTHRITIS OF HIP 01/13/2017 SVETA COOK 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 Ot I48.91 UNSPECIFIED ATRIAL FIBRILLATION 01/13/2017 HUEY ANDREA FLOOR INSPECTOR Ot E05.90 THYROTOXICOSIS, 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 THYROTOXIC 01/13/2017 SVETA COOK 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 Ot E05.90 THYROTOXICOSIS, 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 THYROTOXIC 01/13/2017 SVETA COOK 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 Ot I10 ESSENTIAL (PRIMARY) HYPERTENSION 01/13/2017 SVETA COOK 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 Ot I48.0 PAROXYSMAL ATRIAL FIBRILLATION 01/13/2017 SVETA COOK 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 Ot J44.9 CHRONIC OBSTRUCTIVE PULMONARY DISEASE, U 01/13/2017 SVETA COOK 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 Ot Z79.01 GROUP HOME (CURRENT) USE OF ANTICOAGULANT 01/13/2017 SVETA COOK 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 Ot Z86.73 PRSNL HX OF TIA (TIA), AND CEREB INFRC W 01/13/2017 BILL BARTHOLOMEW DO Ot R94.6 ABNORMAL RESULTS OF THYROID FUNCTION TRUPTI 01/13/2017 BILL BARTHOLOMEW DO R Ot R94.6 ABNORMAL RESULTS OF THYROID FUNCTION TRUPTI 01/13/2017 BILL BARTHOLOMEW DO R Ot E05.90 THYROTOXICOSIS, 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 THYROTOXIC 01/14/2017 PAEMLA LAROSE FACLouis, [place] LEUNGP CCDS Ot I48.0 PAROXYSMAL ATRIAL FIBRILLATION 01/14/2017 PAMELA LAROSE FACLouis, [place] LEUNGP CCDS Ot I73.9 PERIPHERAL VASCULAR DISEASE, UNSPECIFIED 01/14/2017 PAMELA LAROSE FACC, [place] LEUNGP CCDS Ot M79.89 OTHER SPECIFIED SOFT TISSUE DISORDERS 06/12/2017 DEGRAFFENREID-BRITTNEY DURAN Ot R05 COUGH 06/12/2017 DEGRAFFENREID-BRITTNEY DURAN Ot E01.0 IODINE-DEFICIENCY RELATED DIFFUSE (ENDEM 06/12/2017 ROSASBRITTNEY DURAN Ot E07.9 DISORDER OF THYROID, UNSPECIFIED 06/24/2017 DANNA, EMMANUELLE J EMS MANAGER Ot J32.9 CHRONIC SINUSITIS, UNSPECIFIED 06/24/2017 DANNA, EMMANUELLE J EMS MANAGER Ot J33.9 NASAL POLYP, UNSPECIFIED 07/08/2017 DANNA, EMMANUELLE J EMS MANAGER Ot J32.9 CHRONIC SINUSITIS, UNSPECIFIED 07/08/2017 DANNA, EMMANUELLE Tee EMS MANAGER Ot J33.9 NASAL POLYP, UNSPECIFIED 07/26/2017 PAT GOETZ MD Ot E05.80 OTHER THYROTOXICOSIS WITHOUT THYROTOXIC 07/26/2017 PAT GOETZ MD, Ot F32.9 MAJOR DEPRESSIVE DISORDER, SINGLE EPISOD 07/26/2017 PAT GOETZ MD, Ot I48.0 PAROXYSMAL ATRIAL FIBRILLATION 07/26/2017 PAT GOETZ MD, Ot J44.9 CHRONIC OBSTRUCTIVE PULMONARY DISEASE, U 07/26/2017 PAT GOETZ MD Ot M19.90 UNSPECIFIED OSTEOARTHRITIS, UNSPECIFIED 07/26/2017 PAT GOETZ MD Ot R00.2 PALPITATIONS 07/26/2017 PAT GOETZ MD, Ot Z77.22 CNTCT W AND EXPSR TO ENVIRON TOBACCO SMO 07/26/2017 PAT GOETZ MD, Ot Z79.01 REGIONAL ACCOUNT MANAGER (CURRENT) USE OF ANTICOAGULANT 07/26/2017 PAT GOETZ MD, Ot Z79.02 REGIONAL ACCOUNT MANAGER (CURRENT) USE OF ANTITHROMBOTI 07/26/2017 PAT GOETZ MD, Ot Z82.49 FAMILY HX OF ISCHEM HEART DIS AND OTH DI 07/26/2017 PAT GOETZ MD, Ot Z87.59 PERSONAL HISTORY OF COMP OF PREG, CHLDBR 07/28/2017 PAT GOETZ MD Ot E05.80 OTHER THYROTOXICOSIS WITHOUT THYROTOXIC 07/28/2017 PAT GOETZ MD, Ot F32.9 MAJOR DEPRESSIVE DISORDER, SINGLE EPISOD 07/28/2017 PAT GOETZ MD Ot I48.0 PAROXYSMAL ATRIAL FIBRILLATION 07/28/2017 PAT GOETZ MD, Ot J44.9 CHRONIC OBSTRUCTIVE PULMONARY DISEASE, U 07/28/2017 PAT GOETZ MD Ot M19.90 UNSPECIFIED OSTEOARTHRITIS, UNSPECIFIED 07/28/2017 PAT GOETZ MD Ot R00.2 PALPITATIONS 07/28/2017 PAT GOETZ MD Ot Z77.22 CNTCT W AND EXPSR TO ENVIRON TOBACCO SMO 07/28/2017 PAT GOETZ MD Ot Z79.01 REGIONAL ACCOUNT MANAGER (CURRENT) USE OF ANTICOAGULANT 07/28/2017 PAT GOETZ MD Ot Z79.02 GROUP HOME (CURRENT) USE OF ANTITHROMBOTI 07/28/2017 PAT GOETZ MD Ot Z82.49 FAMILY HX OF ISCHEM HEART DIS AND OTH DI 07/28/2017 PAT GOETZ MD Ot Z87.59 PERSONAL HISTORY OF COMP OF PREG, CHLDBR 08/01/2017 PAT GOETZ MD Ot E05.80 OTHER THYROTOXICOSIS WITHOUT THYROTOXIC 08/01/2017 PAT GOETZ MD Ot F32.9 MAJOR DEPRESSIVE DISORDER, SINGLE EPISOD 08/01/2017 PAT GOETZ MD Ot I48.0 PAROXYSMAL ATRIAL FIBRILLATION 08/01/2017 PAT GOETZ MD Ot J44.9 CHRONIC OBSTRUCTIVE PULMONARY DISEASE, U 08/01/2017 PAT GOETZ MD Ot M19.90 UNSPECIFIED OSTEOARTHRITIS, UNSPECIFIED 08/01/2017 PAT GOETZ MD Ot R00.2 PALPITATIONS 08/01/2017 PAT GOETZ MD Ot Z77.22 CNTCT W AND EXPSR TO ENVIRON TOBACCO SMO 08/01/2017 PAT GOETZ MD Ot Z79.01 GROUP HOME (CURRENT) USE OF ANTICOAGULANT 08/01/2017 PAT GOETZ MD Ot Z79.02 REGIONAL ACCOUNT MANAGER (CURRENT) USE OF ANTITHROMBOTI 08/01/2017 PAT GOETZ MD Ot Z82.49 FAMILY HX OF ISCHEM HEART DIS AND OTH DI 08/01/2017 PAT GOETZ MD Ot Z87.59 PERSONAL HISTORY OF COMP OF PREG, CHLDBR 10/29/2017 DEGRAFFENREID-DURAN, BRITTNEY L Ot R05 COUGH 10/29/2017 DEGRAFFENREID-DURAN, BRITTNEY L Ot E01.0 IODINE-DEFICIENCY RELATED DIFFUSE (ENDEM 10/29/2017 DEGRAFFENREID-DURAN, BRITTNEY L Ot E07.9 DISORDER OF THYROID, UNSPECIFIED 10/29/2017 DANNA, EMMANUELLE J EMS MANAGER Ot J32.9 CHRONIC SINUSITIS, UNSPECIFIED 10/29/2017 DANNA, EMMANUELLE J EMS MANAGER Ot J33.9 NASAL POLYP, UNSPECIFIED 10/30/2017 BRI HUIZARINE Nash FLOOR INSPECTOR Ot J45.909 UNSPECIFIED ASTHMA, UNCOMPLICATED 10/30/2017 GAYE, CARINA E FLOOR INSPECTOR Ot R06.00 DYSPNEA, UNSPECIFIED 10/30/2017 GAYEBRI KWONINE E FLOOR INSPECTOR Ot R09.02 HYPOXEMIA 11/05/2017 BRI HUIZARINE E FLOOR INSPECTOR Ot J45.909 UNSPECIFIED ASTHMA, UNCOMPLICATED 11/05/2017 BRI HUIZARINE Nash FLOOR INSPECTOR Ot R06.00 DYSPNEA, UNSPECIFIED 11/05/2017 BRI HUIZARINE Nash FLOOR INSPECTOR Ot R09.02 HYPOXEMIA 11/05/2017 BRI HUIZARINE E FLOOR INSPECTOR Ot J45.909 UNSPECIFIED ASTHMA, UNCOMPLICATED 11/05/2017 GAYEBRI KWONINE Nash FLOOR INSPECTOR Ot R06.00 DYSPNEA, UNSPECIFIED 11/05/2017 BRI HUIAZRINE Nash FLOOR INSPECTOR Ot R09.02 HYPOXEMIA 11/05/2017 CARINA HUIZAR FLOOR INSPECTOR Ot J45.909 UNSPECIFIED ASTHMA, UNCOMPLICATED 11/05/2017 BRI HUIZARINE Nash FLOOR INSPECTOR Ot R06.00 DYSPNEA, UNSPECIFIED 11/05/2017 BRI HUIZARINE Nash FLOOR INSPECTOR Ot R09.02 HYPOXEMIA 11/05/2017 DEGRAFFENREID-DURAN, BRITTNEY L Ot R05 COUGH 11/05/2017 DEGRAFFENREID-DURAN, BRITTNEY L Ot E01.0 IODINE-DEFICIENCY RELATED DIFFUSE (ENDEM 11/05/2017 DEGRAFFENREID-DURAN, BRITTNEY L Ot E07.9 DISORDER OF THYROID, UNSPECIFIED 11/05/2017 DANNA, EMMANUELLE J EMS MANAGER Ot J32.9 CHRONIC SINUSITIS, UNSPECIFIED 11/05/2017 DANNA, EMMANUELLE J EMS MANAGER Ot J33.9 NASAL POLYP, UNSPECIFIED 11/05/2017 BRI HUIZARINE Nash FLOOR INSPECTOR Ot J45.909 UNSPECIFIED ASTHMA, UNCOMPLICATED 11/05/2017 CARINA HUIZAR FLOOR INSPECTOR Ot R06.00 DYSPNEA, UNSPECIFIED 11/05/2017 CARINA HUIZAR FLOOR INSPECTOR Ot R09.02 HYPOXEMIA 11/05/2017 DANNA, EMMANUELLE J EMS MANAGER Ot J32.9 CHRONIC SINUSITIS, UNSPECIFIED 11/05/2017 DANNA, EMMANUELLE J EMS MANAGER Ot J33.9 NASAL POLYP, UNSPECIFIED 11/16/2017 DANNA, EMMANUELLE J EMS MANAGER Ot J32.9 CHRONIC SINUSITIS, UNSPECIFIED 11/16/2017 DANNA, EMMANUELLE J EMS MANAGER Ot J33.9 NASAL POLYP, UNSPECIFIED 11/16/2017 DANNA, EMMANUELLE J EMS MANAGER Ot J32.9 CHRONIC SINUSITIS, UNSPECIFIED 11/16/2017 DANNA, EMMANUELLE J EMS MANAGER Ot J33.9 NASAL POLYP, UNSPECIFIED 11/16/2017 MAURILIO CAMERON FLOOR INSPECTOR Ot 611.71 MASTODYNIA 11/16/2017 KRISTYN DHILLON Ot 414.00 CORON ATHEROSCLER NOS TYPE VESSEL, NATIV 11/16/2017 KRISTYN DHILLON Ot 242.90 THYROTOX NOS NO CRISIS 11/16/2017 KRISTYN DHILLON Ot 401.1 BENIGN HYPERTENSION 11/16/2017 KRISTYN DHILLON Ot 496 CHR AIRWAY OBSTRUCT NEC 11/16/2017 KRISTYN DHILLON Ot 786.05 SHORTNESS OF BREATH 11/16/2017 KRISTYN DHILLON Ot 786.50 CHEST PAIN NOS 11/16/2017 SANDER POLK FLOOR INSPECTOR Ot 435.9 TRANS CEREB ISCHEMIA NOS 11/16/2017 NILAM DOVER Ot M16.0 BILATERAL PRIMARY OSTEOARTHRITIS OF HIP 11/16/2017 SVETA COOK Ot I48.91 UNSPECIFIED ATRIAL FIBRILLATION 11/16/2017 HUEY ANDREA FLOOR INSPECTOR Ot E05.90 THYROTOXICOSIS, 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 THYROTOXIC 11/16/2017 SVETA COOK 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 Ot E05.90 THYROTOXICOSIS, 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 THYROTOXIC 11/16/2017 SVETA COOK 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 Ot I10 ESSENTIAL (PRIMARY) HYPERTENSION 11/16/2017 SVETA COOK 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 Ot I48.0 PAROXYSMAL ATRIAL FIBRILLATION 11/16/2017 SVETA COOK 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 Ot J44.9 CHRONIC OBSTRUCTIVE PULMONARY DISEASE, U 11/16/2017 SVETA COOK 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 Ot Z79.01 REGIONAL ACCOUNT MANAGER (CURRENT) USE OF ANTICOAGULANT 11/16/2017 SVETA COOK 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 Ot Z86.73 PRSNL HX OF TIA (TIA), AND CEREB INFRC W 11/16/2017 PUMA DO, BILL R Ot R94.6 ABNORMAL RESULTS OF THYROID FUNCTION TRUPTI 11/16/2017 PUMA DO, BILL R Ot R94.6 ABNORMAL RESULTS OF THYROID FUNCTION TRUPTI 11/16/2017 PUMA DO, BILL R Ot E05.90 THYROTOXICOSIS, 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 THYROTOXIC 11/16/2017 PAMELA LAROSE FAC, ALI FACP CCDS Ot I48.0 PAROXYSMAL ATRIAL FIBRILLATION 11/16/2017 PAMELA LAROSE FAC, ALI FACP CCDS Ot I73.9 PERIPHERAL VASCULAR DISEASE, UNSPECIFIED 11/16/2017 PAMELA LAROSE FAC, ALI FACP CCDS Ot M79.89 OTHER SPECIFIED SOFT TISSUE DISORDERS 11/16/2017 DANNA, EMMANUELLE J EMS MANAGER Ot J32.9 CHRONIC SINUSITIS, UNSPECIFIED 11/16/2017 DANNA, EMMANUELLE J EMS MANAGER Ot J33.9 NASAL POLYP, UNSPECIFIED 11/18/2017 CARINA HUIZAR APRN Ot J45.909 UNSPECIFIED ASTHMA, UNCOMPLICATED 11/18/2017 CARINA HUIZAR FLOOR INSPECTOR Ot R06.00 DYSPNEA, UNSPECIFIED 11/18/2017 CARINA HUIZAR FLOOR INSPECTOR Ot R09.02 HYPOXEMIA 02/15/2018 VIKTORIYA NELSON MD J Ot E05.90 THYROTOXICOSIS, 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 THYROTOXIC 02/15/2018 VIKTORIYA NELSON MD J Ot F32.9 MAJOR DEPRESSIVE DISORDER, SINGLE EPISOD 02/15/2018 VIKTORIYA NELSON MD J Ot I48.91 UNSPECIFIED ATRIAL FIBRILLATION 02/15/2018 OBDULIA NELSON MDUS J Ot J20.9 ACUTE BRONCHITIS, UNSPECIFIED 02/15/2018 VIKTORIYA NELSON MD J Ot J44.0 CHRONIC OBSTRUCTIVE PULMON DISEASE W ACU 02/15/2018 VIKTORIYA NELSON MD J Ot R05 COUGH 02/15/2018 VIKTORIYA NELSON MD Ot Z79.01 GROUP HOME (CURRENT) USE OF ANTICOAGULANT 02/15/2018 VIKTORIYA NELSON MD Ot Z79.51 GROUP HOME (CURRENT) USE OF INHALED STERO 02/15/2018 VIKTORIYA NELSON MD Ot Z79.52 REGIONAL ACCOUNT MANAGER (CURRENT) USE OF SYSTEMIC STER 02/15/2018 VIKTORIYA NELSON MD Ot Z82.49 FAMILY HX OF ISCHEM HEART DIS AND OTH DI 02/15/2018 VIKTORIYA NLESON MD Ot Z87.59 PERSONAL HISTORY OF COMP OF PREG, CHLDBR 02/15/2018 VIKTORIYA NELSON MD Ot Z87.891 PERSONAL HISTORY OF NICOTINE DEPENDENCE 02/15/2018 VIKTORIYA NELSON MD Ot Z88.0 ALLERGY STATUS TO PENICILLIN 02/15/2018 VIKTORIYA NELSON MD Ot Z88.2 ALLERGY STATUS TO SULFONAMIDES STATUS 02/17/2018 VIKTORIYA NELSON MD Ot E05.90 THYROTOXICOSIS, 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 THYROTOXIC 02/17/2018 VIKTORIYA NELSON MD Ot F32.9 MAJOR DEPRESSIVE DISORDER, SINGLE EPISOD 02/17/2018 VIKTORIYA NELSON MD Ot I48.91 UNSPECIFIED ATRIAL FIBRILLATION 02/17/2018 VIKTORIYA NELSON MD Ot J20.9 ACUTE BRONCHITIS, UNSPECIFIED 02/17/2018 VIKTORIYA NELSON MD Ot J44.0 CHRONIC OBSTRUCTIVE PULMON DISEASE W ACU 02/17/2018 VIKTORIYA NELSON MD Ot R05 COUGH 02/17/2018 VIKTORIYA NELSON MD Ot Z79.01 GROUP HOME (CURRENT) USE OF ANTICOAGULANT 02/17/2018 VIKTORIYA NELSON MD Ot Z79.51 REGIONAL ACCOUNT MANAGER (CURRENT) USE OF INHALED STERO 02/17/2018 VIKTORIYA NELSON MD Ot Z79.52 REGIONAL ACCOUNT MANAGER (CURRENT) USE OF SYSTEMIC STER 02/17/2018 VIKTORIYA NELSON MD Ot Z82.49 FAMILY HX OF ISCHEM HEART DIS AND OTH DI 02/17/2018 VIKTORIYA NELSON MD Ot Z87.59 PERSONAL HISTORY OF COMP OF PREG, CHLDBR 02/17/2018 VIKTORIYA NELSON MD Ot Z87.891 PERSONAL HISTORY OF NICOTINE DEPENDENCE 02/17/2018 VIKTORIYA NELSON MD Ot Z88.0 ALLERGY STATUS TO PENICILLIN 02/17/2018 VIKTORIYA NELSON MD Ot Z88.2 ALLERGY STATUS TO SULFONAMIDES STATUS 03/02/2018 DEGRAFFEJOHN-BRITTNEY DURAN L Ot N64.4 MASTODYNIA 03/11/2018 PAMELA LEUNGC, ALI FACP CCDS Ot E05.90 THYROTOXICOSIS, 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 THYROTOXIC 03/11/2018 PAMELA LEUNGC, ALI FACP CCDS Ot E66.9 OBESITY, UNSPECIFIED 03/11/2018 PAMELA LEUNGC, ALI FACP CCDS Ot G47.33 OBSTRUCTIVE SLEEP APNEA (ADULT) (PEDIATR 03/11/2018 PAMELA LAROSE FACC, ALI FACP CCDS Ot I10 ESSENTIAL (PRIMARY) HYPERTENSION 03/11/2018 PAMELA LEUNGC, ALI FACP CCDS Ot I48.0 PAROXYSMAL ATRIAL FIBRILLATION 03/11/2018 PAMELA LEUNGC, ALI FACP CCDS Ot R07.89 OTHER CHEST PAIN 03/11/2018 PAMELA LEUNGC, ALI FACP CCDS Ot E05.90 THYROTOXICOSIS, 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 THYROTOXIC 03/11/2018 PAMELA LEUNGC, ALI FACP CCDS Ot E66.9 OBESITY, UNSPECIFIED 03/11/2018 PAMELA LEUNGC, ALI FACP CCDS Ot G47.33 OBSTRUCTIVE SLEEP APNEA (ADULT) (PEDIATR 03/11/2018 PAMELA LAROSE FACC, ALI FACP CCDS Ot I10 ESSENTIAL (PRIMARY) HYPERTENSION 03/11/2018 PAMELA LEUNGC, ALI FACP CCDS Ot I48.0 PAROXYSMAL ATRIAL FIBRILLATION 03/11/2018 PAMELA LAROSE FACC, ALI FACP CCDS Ot R07.89 OTHER CHEST PAIN 03/23/2018 DEGRAFFEJOHN-BRITTNEY DURAN L Ot N64.4 MASTODYNIA 03/25/2018 PAMELA LEUNGC, ALI FACP CCDS Ot E05.90 THYROTOXICOSIS, 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 THYROTOXIC 03/25/2018 PAMELA LEUNGC, ALI FACP CCDS Ot E66.9 OBESITY, UNSPECIFIED 03/25/2018 PAMELA LEUNGC, ALI FACP CCDS Ot G47.33 OBSTRUCTIVE SLEEP APNEA (ADULT) (PEDIATR 03/25/2018 PAMELA LEUNGC, ALI FACP CCDS Ot I10 ESSENTIAL (PRIMARY) HYPERTENSION 03/25/2018 PAMELA LAROSE FACC, PHOENIX RAMIREZ CCDS Ot I48.0 PAROXYSMAL ATRIAL FIBRILLATION 03/25/2018 PAMELA LAROSE FACC, [place]EN[place] RAMIREZ CCDS Ot R07.89 OTHER CHEST PAIN 04/02/2018 GENOVEVA JONES APRN Ot G47.33 OBSTRUCTIVE SLEEP APNEA (ADULT) (PEDIATR 04/02/2018 GENOVEVA JONES APRN Ot G47.33 OBSTRUCTIVE SLEEP APNEA (ADULT) (PEDIATR Procedures Code [place] [address] MAMMOGRAM DX, PETE 03/18/2013 61977 NUCLEAR STRESS TESTING 05/02/2013 71222 ECHO 2D 05/03/2013 Cardiolog Varsha Willett 05/19/2013 72402 THERAPUTIC INJ SQ/IM 11/14/2013 J1040 DEPO MEDROL 80 MG INJ 11/14/2013 49472 OXIMETRY 11/14/2013 46886 XRAY ANKLE L COMP MIN, 3 VIEWS 06/01/2014 73205 THERAPUTIC INJ SQ/IM 07/05/2014 J2930 SOLUMEDROL INJ 07/05/2014 68889 CULTURE NASAL 10/30/2014 Results Test Result Range THYROID STIMULATING HORMONE - 05/15/16 12:33 THYROID STIMULATING HORMONE 2.12 u[iU]/mL 0.35-4.94 Serum or plasma thyroxine (T4) free measurement (mass/volume) - 05/15/16 12:33 Serum or plasma thyroxine (T4) free measurement (mass/volume) 0.55 ng/dL 0.70-1.48 Total triiodothyronine (T3) measurement - 05/15/16 12:33 Total triiodothyronine (T3) measurement 0.9 % 0.6-1.8 THYROID STIMULATING HORMONE - 07/30/16 09:25 THYROID STIMULATING HORMONE 1.18 u[iU]/mL 0.35-4.94 Serum or plasma thyroxine (T4) free measurement (mass/volume) - 07/30/16 09:25 Serum or plasma thyroxine (T4) free measurement (mass/volume) 0.90 ng/dL 0.70-1.48 Total triiodothyronine (T3) measurement - 07/30/16 09:25 Total triiodothyronine (T3) measurement 1.4 % 0.6-1.8 Complete blood count (CBC) with automated white blood cell (WBC) differential - 07/26/17 19:08 Blood leukocytes automated count (number/volume) 15.2 10*3/uL 4.3-11.0 Blood erythrocytes automated count (number/volume) 4.82 10*6/uL 4.35-5.85 Venous blood hemoglobin measurement (mass/volume) 13.8 g/dL 11.5-16.0 Blood hematocrit (volume fraction) 41 % 35-52 Automated erythrocyte mean corpuscular volume 86 [foz_us] 80-99 Automated erythrocyte mean corpuscular hemoglobin (mass per erythrocyte) 29 pg 25-34 Automated erythrocyte mean corpuscular hemoglobin concentration measurement ( mass/volume) 33 g/dL 32-36 Automated erythrocyte distribution width ratio 14.7 % 10.0-14.5 Automated blood platelet count (count/volume) 262 10*3/uL 130-400 Automated blood platelet mean volume measurement 11.2 [foz_us] 7.4-10.4 Automated blood neutrophils/100 leukocytes 81 % 42-75 Automated blood lymphocytes/100 leukocytes 12 % 12-44 Blood monocytes/100 leukocytes 5 % 0-12 Automated blood eosinophils/100 leukocytes 2 % 0-10 Automated blood basophils/100 leukocytes 0 % 0-10 Blood neutrophils automated count (number/volume) 12.3 10*3 1.8-7.8 Blood lymphocytes automated count (number/volume) 1.8 10*3 1.0-4.0 Blood monocytes automated count (number/volume) 0.8 10*3 0.0-1.0 Automated eosinophil count 0.3 10*3/uL 0.0-0.3 Automated blood basophil count (count/volume) 0.0 10*3/uL 0.0-0.1 Comprehensive metabolic panel - 07/26/17 19:08 Serum or plasma sodium measurement (moles/volume) 138 mmol/L 135-145 Serum or plasma potassium measurement (moles/volume) 4.9 mmol/L 3.6-5.0 Serum or plasma chloride measurement (moles/volume) 105 mmol/L 98-107 Carbon dioxide 26 mmol/L 21-32 Serum or plasma anion gap determination (moles/volume) 7 mmol/L 5-14 Serum or plasma urea nitrogen measurement (mass/volume) 18 mg/dL 7-18 Serum or plasma creatinine measurement (mass/volume) 0.82 mg/dL 0.60-1.30 Serum or plasma urea nitrogen/creatinine mass ratio 22 NRG Serum or plasma creatinine measurement with calculation of estimated glomerular filtration rate > NRG Serum or plasma glucose measurement (mass/volume) 190 mg/dL 70-105 Serum or plasma calcium measurement (mass/volume) 9.5 mg/dL 8.5-10.1 Serum or plasma total bilirubin measurement (mass/volume) 0.3 mg/dL 0.1-1.0 Serum or plasma alkaline phosphatase measurement (enzymatic activity/volume) 117 U/L 40-136 Serum or plasma aspartate aminotransferase measurement (enzymatic activity/ volume) 44 U/L 5-34 Serum or plasma alanine aminotransferase measurement (enzymatic activity/volume ) 73 U/L 0-55 Serum or plasma protein measurement (mass/volume) 6.5 g/dL 6.4-8.2 Serum or plasma albumin measurement (mass/volume) 3.6 g/dL 3.2-4.5 Magnesium - 07/26/17 19:08 Magnesium 2.0 mg/dL 1.8-2.4 Blood manual differential performed detection - 07/26/17 19:08 Blood monocytes/100 leukocytes 5 % NRG Manual blood segmented neutrophils/100 leukocytes 82 % NRG Blood band neutrophils/100 leukocytes 0 % NRG Manual blood lymphocytes/100 leukocytes 11 % NRG Manual eosinophils/100 leukocytes in nose 2 % NRG Manual blood basophils/100 leukocytes 0 % NRG Blood erythrocyte morphology finding identification NORMAL NRG Serum or plasma troponin i.cardiac measurement (mass/volume) - 07/26/17 19:08 Serum or plasma troponin i.cardiac measurement (mass/volume) < ng/ mL <0.30 THYROID STIMULATING HORMONE - 07/26/17 19:08 THYROID STIMULATING HORMONE 0.00 u[iU]/mL 0.35-4.94 Serum or plasma thyroxine (T4) free measurement (mass/volume) - 07/26/17 19:08 Serum or plasma thyroxine (T4) free measurement (mass/volume) 1.53 ng/dL 0.70-1.48 A1C - 07/29/17 08:21 HEMOGLOBIN A1c 6.0 % of total Hgb <5.7 Complete blood count (CBC) with automated white blood cell (WBC) differential - 10/29/17 10:59 Blood leukocytes automated count (number/volume) 14.1 10*3/uL 4.3-11.0 Blood erythrocytes automated count (number/volume) 5.47 10*6/uL 4.35-5.85 Venous blood hemoglobin measurement (mass/volume) 15.0 g/dL 11.5-16.0 Blood hematocrit (volume fraction) 45 % 35-52 Automated erythrocyte mean corpuscular volume 82 [foz_us] 80-99 Automated erythrocyte mean corpuscular hemoglobin (mass per erythrocyte) 27 pg 25-34 Automated erythrocyte mean corpuscular hemoglobin concentration measurement ( mass/volume) 34 g/dL 32-36 Automated erythrocyte distribution width ratio 16.0 % 10.0-14.5 Automated blood platelet count (count/volume) 264 10*3/uL 130-400 Automated blood platelet mean volume measurement 11.0 [foz_us] 7.4-10.4 Automated blood neutrophils/100 leukocytes 83 % 42-75 Automated blood lymphocytes/100 leukocytes 11 % 12-44 Blood monocytes/100 leukocytes 5 % 0-12 Automated blood eosinophils/100 leukocytes 1 % 0-10 Automated blood basophils/100 leukocytes 0 % 0-10 Blood neutrophils automated count (number/volume) 11.7 10*3 1.8-7.8 Blood lymphocytes automated count (number/volume) 1.5 10*3 1.0-4.0 Blood monocytes automated count (number/volume) 0.7 10*3 0.0-1.0 Automated eosinophil count 0.2 10*3/uL 0.0-0.3 Automated blood basophil count (count/volume) 0.0 10*3/uL 0.0-0.1 Blood manual differential performed detection - 10/29/17 10:59 Blood monocytes/100 leukocytes 2 % NRG Manual blood segmented neutrophils/100 leukocytes 86 % NRG Blood band neutrophils/100 leukocytes 1 % NRG Manual blood lymphocytes/100 leukocytes 10 % NRG Manual eosinophils/100 leukocytes in nose 0 % NRG Manual blood basophils/100 leukocytes 1 % NRG Blood erythrocyte morphology finding identification NORMAL NRG IMMUNOGLOBULIN IGE - 10/29/17 10:59 Serum or plasma IgE antibody detection 46.0 NRG IgE measurement (mass/volume) See Footnote NRG Complete blood count (CBC) with automated white blood cell (WBC) differential - 02/15/18 14:09 Blood leukocytes automated count (number/volume) 10.0 10*3/uL 4.3-11.0 Blood erythrocytes automated count (number/volume) 4.87 10*6/uL 4.35-5.85 Venous blood hemoglobin measurement (mass/volume) 13.6 g/dL 11.5-16.0 Blood hematocrit (volume fraction) 41 % 35-52 Automated erythrocyte mean corpuscular volume 84 [foz_us] 80-99 Automated erythrocyte mean corpuscular hemoglobin (mass per erythrocyte) 28 pg 25-34 Automated erythrocyte mean corpuscular hemoglobin concentration measurement ( mass/volume) 33 g/dL 32-36 Automated erythrocyte distribution width ratio 14.0 % 10.0-14.5 Automated blood platelet count (count/volume) 215 10*3/uL 130-400 Automated blood platelet mean volume measurement 11.2 [foz_us] 7.4-10.4 Automated blood neutrophils/100 leukocytes 65 % 42-75 Automated blood lymphocytes/100 leukocytes 15 % 12-44 Blood monocytes/100 leukocytes 10 % 0-12 Automated blood eosinophils/100 leukocytes 9 % 0-10 Automated blood basophils/100 leukocytes 0 % 0-10 Blood neutrophils automated count (number/volume) 6.5 10*3 1.8-7.8 Blood lymphocytes automated count (number/volume) 1.5 10*3 1.0-4.0 Blood monocytes automated count (number/volume) 1.0 10*3 0.0-1.0 Automated eosinophil count 0.9 10*3/uL 0.0-0.3 Automated blood basophil count (count/volume) 0.0 10*3/uL 0.0-0.1 Comprehensive metabolic panel - 02/15/18 14:09 Serum or plasma sodium measurement (moles/volume) 139 mmol/L 135-145 Serum or plasma potassium measurement (moles/volume) 3.8 mmol/L 3.6-5.0 Serum or plasma chloride measurement (moles/volume) 105 mmol/L 98-107 Carbon dioxide 24 mmol/L 21-32 Serum or plasma anion gap determination (moles/volume) 10 mmol/L 5-14 Serum or plasma urea nitrogen measurement (mass/volume) 16 mg/dL 7-18 Serum or plasma creatinine measurement (mass/volume) 0.70 mg/dL 0.60-1.30 Serum or plasma urea nitrogen/creatinine mass ratio 23 NRG Serum or plasma creatinine measurement with calculation of estimated glomerular filtration rate > NRG Serum or plasma glucose measurement (mass/volume) 115 mg/dL 70-105 Serum or plasma calcium measurement (mass/volume) 9.9 mg/dL 8.5-10.1 Serum or plasma total bilirubin measurement (mass/volume) 0.5 mg/dL 0.1-1.0 Serum or plasma alkaline phosphatase measurement (enzymatic activity/volume) 104 U/L 40-136 Serum or plasma aspartate aminotransferase measurement (enzymatic activity/ volume) 37 U/L 5-34 Serum or plasma alanine aminotransferase measurement (enzymatic activity/volume ) 47 U/L 0-55 Serum or plasma protein measurement (mass/volume) 6.8 g/dL 6.4-8.2 Serum or plasma albumin measurement (mass/volume) 3.7 g/dL 3.2-4.5 THYROID STIMULATING HORMONE - 04/27/18 15:10 THYROID STIMULATING HORMONE 0.00 u[iU]/mL 0.35-4.94 Serum or plasma thyroxine (T4) free measurement (mass/volume) - 04/27/18 15:10 Serum or plasma thyroxine (T4) free measurement (mass/volume) 1.12 ng/dL 0.70-1.48 Total triiodothyronine (T3) measurement - 04/27/18 15:10 Total triiodothyronine (T3) measurement 1.31 % 0.60-1.80 Encounters ACCT No. Visit Date/Time Discharge Status Pt. Type Provider Facility Loc./Unit Complaint [id number] 01/04/2019 18:40:00 01/04/2019 23:59:59 [facility] [id number] 07/29/2017 09:00:00 Document Registration [id number] 10/30/2014 11:49:00 10/30/2014 23:59:59 [facility] Outpatient JR CASAS APRN [id number] 09/18/2014 10:04:00 09/18/2014 23:59:59 [facility] Outpatient KEVIN KRAMER DO [id number] 07/05/2014 08:39:00 07/05/2014 23:59:59 [facility] Outpatient NILAM DOVER APRN [id number] 06/30/2014 15:16:00 06/30/2014 23:59:59 [facility] Outpatient KEVIN KRAMER DO [id number] 06/01/2014 09:09:00 06/01/2014 23:59:59 [facility] Outpatient KEVIN KRAMER DO [id number] 04/08/2014 09:41:00 04/08/2014 23:59:59 [facility] Outpatient JAZZMINE JR NILAM Kilo [id number] 02/02/2014 10:03:00 02/02/2014 23:59:59 [facility] Outpatient KEVIN KRAMER DO [id number] 11/14/2013 10:48:00 11/14/2013 23:59:59 CLS Outpatient KEVIN KRAMER DO [id number] 07/07/2013 10:53:00 07/07/2013 23:59:59 CLS Outpatient KEVIN KRAMER DO [id number] 11/17/2012 14:30:00 11/17/2012 23:59:59 [facility] Outpatient CHARITY EDGAR MD, SANTO [place] [id number] 10/09/2012 14:01:00 10/09/2012 23:59:59 [facility] Outpatient DOMINGO FLORENCE APRN [id number] 05/25/2012 12:45:00 05/25/2012 23:59:59 [facility] Outpatient [id number] 05/25/2012 12:45:00 05/25/2012 23:59:59 [facility] Outpatient [id number] 05/19/2013 08:50:00 Document Registration [id number] 04/29/2013 10:25:00 Document Registration [id number] 03/18/2013 13:10:00 Document Registration [id number] 04/01/2018 20:43:00 04/02/2018 06:28:00 DIS Outpatient GENOVEVA JONES APRN [facility] SLEEP OBSERVED APNEAS, SNORING,CHOKING GASPING IN SLEEP [id number] 03/09/2018 07:42:00 03/09/2018 23:59:59 [facility] Outpatient PAMELA LAROSE FACCPHOENIX FACP CCDS [facility] CARD CHEST DISCOMFORT,HTN, HYPERTHYROIDISM [id number] 03/01/2018 12:58:00 03/01/2018 23:59:59 CLS Outpatient BRITTNEY QUINONEZ [facility] RAD BREAST TENDERNESS IN FEMALE [id number] 02/15/2018 13:40:00 02/15/2018 15:36:00 DIS Emergency OMAR LAROSE, VIKTORIYA Oliveira [facility] ER COUGH,SOA [id number] 02/10/2018 13:57:00 02/10/2018 23:59:59 CLS Preadmit BRITTNEY QUINONEZ [facility] RAD BREAST TENDERNESS IN FEMALE [id number] 11/03/2017 13:49:00 11/03/2017 23:59:59 CLS Preadmit CARINA HUIZAR E FLOOR INSPECTOR [facility] SLEEP G47.9 SLEEP DISORDER [id number] 11/02/2017 10:45:00 11/02/2017 23:59:59 CLS Preadmit GAYEBRICARINA E FLOOR INSPECTOR [facility] PULM J45.909 ASTHMA [id number] 10/29/2017 15:11:00 10/29/2017 23:59:59 CLS Preadmit CARINA HUIZAR E FLOOR INSPECTOR [facility] RT J45.909 ASTHMA [id number] 10/29/2017 10:46:00 10/29/2017 23:59:59 CLS Outpatient BRI HUIZARINE E FLOOR INSPECTOR [facility] LAB J45.909 R06.00 R09.02 [id number] 07/26/2017 18:51:00 07/26/2017 21:39:00 DIS Emergency PAT GOETZ MD [facility] ER AFIB [id number] 06/23/2017 15:53:00 06/23/2017 23:59:59 CLS Outpatient EMMANUELLE CLAY EMS MANAGER [facility] RAD POLYPS [id number] 06/10/2017 09:16:00 06/10/2017 23:59:59 CLS Preadmit BRITTNEY QUINONEZ [facility] RAD SCREENING [id number] 03/09/2017 10:15:00 03/09/2017 23:59:59 CLS Outpatient BRITTNEY QUINONEZ [facility] RAD E01.0 ENLARGED THY [id number] 01/13/2017 11:59:00 01/13/2017 23:59:59 CLS Outpatient PAMELA LAROSE FACC, PHOENIX RAMIREZ CCDS [facility] RAD I48.0,M79.89, I73.9 [id number] 01/07/2017 15:07:00 01/07/2017 23:59:59 CLS Outpatient DEGRAFFELOGANROGER BRITTNEY Ochoa [facility] RAD COUGH [id number] 09/23/2016 14:00:00 09/23/2016 23:59:59 CLS Preadmit PAMELA LAROSE FACC, PHOENIX RAMIREZ CCDS [facility] RAD LEFT LEG CLAUDICATION [id number] 07/30/2016 09:02:00 07/30/2016 23:59:59 CLS Outpatient BILL BARTHOLOMEW DO [facility] LAB HYPERTHYROID [id number] 05/15/2016 12:21:00 05/15/2016 23:59:59 CLS Outpatient BILL BARTHOLOMEW DO [facility] LAB THYROID STIMULATING HORMONE ABNORMAL [id number] 03/13/2016 10:09:00 03/13/2016 23:59:59 CLS Outpatient BILL BARTHOLOMEW DO [facility] LAB ABNORMAL THYROID STIMULATNG HORMONE [id number] 03/07/2016 10:24:00 03/07/2016 23:59:59 CLS Outpatient SVETA COOK [facility] LAB PAF,HTN,COPD [id number] 02/27/2016 12:13:00 02/29/2016 13:12:00 DIS Inpatient PHOENIX SANTIAGO MD, FACC, FACP CCDS [facility] ICU A FIB WITH RVR HYPERTHYROIDISM [id number] 02/13/2016 13:57:00 02/13/2016 23:59:59 CLS Outpatient SVETA COOK 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 [facility] CARD AFIB [id number] 02/13/2016 12:12:00 02/13/2016 23:59:59 CLS Outpatient HUEY ANDREA APRN [facility] RAD HYPERTHYROIDISM [id number] 01/24/2016 14:03:00 01/25/2016 15:05:00 DIS Inpatient BHUPINDER SHORT MD [facility] ICU A FIB/RVR [id number] 11/07/2015 09:43:00 11/07/2015 23:59:59 CLS Outpatient NILAM DOVER Kilo CFNP [facility] RAD ARTHRITIS OF BOTH HIPS [id number] 02/14/2015 09:29:00 02/14/2015 23:59:59 CLS Outpatient HUEY ANDREA FLOOR INSPECTOR [facility] RAD [id number] 08/16/2013 13:25:00 08/16/2013 23:59:59 CLS Outpatient SANDER POLK FLOOR INSPECTOR [facility] RAD TIA [id number] 05/30/2013 07:07:00 05/30/2013 23:59:59 CLS Outpatient SIDNEY-KRISTYN YAÑEZ [facility] RAD ESSENTIAL HTN ,SOB,CHEST PAIN [id number] 05/03/2013 10:06:00 05/03/2013 23:59:59 CLS Outpatient SIDNEY-KRISTYN YAÑEZ [facility] CARD ESSENTIAL HTN,SOB,CHEST PAIN [id number] 03/29/2013 08:05:00 03/29/2013 23:59:59 CLS Outpatient MAURILIO CAMERON FLOOR INSPECTOR [facility] RAD PETE BREAST PAIN [id number] 01/13/2019 09:43:00 ACT Emergency YEVGENIY LAROSE, BRISEIDA Kulkarni [facility] ER CHEST PAIN [id number] 04/27/2018 15:53:00 Document Registration [id number] 02/08/2015 09:47:00 Document Registration [id number] 03/18/2012 11:22:00 Document Registration [id number] 01/21/2012 10:51:00 Document Registration [id number] 08/21/2011 09:12:00 Document Registration [id number] 05/15/2011 08:30:00 Document Registration [id number] 03/15/2011 19:14:00 Document Registration [id number] 03/14/2011 13:50:00 Document Registration [id number] 01/14/2011 09:03:00 Document Registration
[2019-01-13 10:31] LABS: PROTHROMBIN TIME PATIENT 13.3 SEC (12.2-14.7)
--- NOTE | 2019-01-13 10:38 | ED Chest Pain ---
General Chief Complaint: Chest Pain Stated Complaint: CHEST PAIN Nursing Triage Note: PT CO OF CHEST PAIN STARTED APPROX 45MIN AGO 9/10. PT RATES PAIN 5/10 CURRENTLY PAIN RADIATES UNDER L ARM AND UP INTO JAW. PT DENIES SOA OR DIAPHORISIS AT THIS X, PT STATES HAS SOME NAUSEA BUT HAS HAD FOR A FEW DAYS. C/P IS NOT REPRODUCABLE. Nursing Sepsis Screen: No Definite Risk Source: patient Exam Limitations: no limitations History of Present Illness Date Seen by Provider: Jan 13, 2019 Time Seen by Provider: 09:44 Initial Comments This 53-year-old woman presents to the emergency room with complaints of sharp chest pain that occurred suddenly while she was sitting at her desk at work shortly before arrival. The pain radiated through to her back. She went to [facility] to check her blood pressure and noted her blood pressure to be elevated at 180/101 with a heart rate of 50. She contacted Dr[address] Shea's office and they deferred her here. Pain was rated as 9/10 at its worst. It is now 5/10. Patient has history of atrial fibrillation and takes Eliquis. She also reports a remote anoxic [place] during an admission for pneumonia. Review of her chart notes a negative stress test in 2018 and a negative stress echo in 2011. Patient states she has never had a cardiac catheterization. She has strong family history with a daughter age 30s who had [place] from LAD occlusion. Dr. Shea is her primary chancellor. Her primary care provider is Dr. Underwood at . Patient was recently treated with azithromycin and prednisone for upper respiratory symptoms. She has history of thyroid disease. She had been on methimazole previously. She is now on levothyroxine post thyroidectomy. Allergies and Home Medications Allergies Coded Allergies: Penicillins (Verified Allergy, Unknown, 01/13/19) Sulfa (Sulfonamide Antibiotics) (Verified Allergy, Unknown, 01/13/19) Home Medications Albuterol Sulfate 8.5 Gm Hfa.aer.ad, 2 PUFF IH Q6H PRN for SHORTNESS OF BREATH, (Reported) Apixaban 5 Mg Tablet, 5 MG PO HS, (Reported) Beclomethasone Dipropionate 10.6 Gm Hfa.aeroba, 2 PUFF IH HS, (Reported) LAST FILLED #1 INHALER 09-09-18 Cetirizine HCl 10 Mg Tablet, 10 MG PO HS, (Reported) Diltiazem HCl 180 Mg Cap.er.24h, 180 MG PO HS, (Reported) LAST FILLED #30 11-02-17 Fluoxetine HCl 20 Mg Capsule, 20 MG PO HS, (Reported) Fluticasone Propionate 16 Gm [place].susp, 2 SPRAYS NS BID PRN for CONGESTION, ( Reported) Fluticasone/Salmeterol 1 Each Blst.w.dev, 1 PUFF IH HS, (Reported) Ipratropium [place] 12.9 Gm Aers, 1 PUFF IH HS, (Reported) LAST FILLED #1 INHALER 09-09-18 Ipratropium/Albuterol Sulfate 3 Ml Ampul.neb, 3 ML NEB Q6H PRN for SHORTNESS OF BREATH, (Reported) LAST FILLED SEPTEMBER 2017 Levothyroxine Sodium 125 Mcg Tablet, 125 MCG PO DAILY, (Reported) Metformin HCl 500 Mg Tablet, 1,000 MG PO HS, (Reported) TAKES 2 (500MG) TABLETS Metoprolol Succinate 100 Mg Tab.er.24h, 100 MG PO HS, (Reported) Montelukast Sodium 10 Mg Tablet, 10 MG PO HS, (Reported) LAST FILLED #30 09-09-18 Patient Home Medication List Home Medication List Reviewed: Yes Review of Systems Review of Systems Constitutional: no symptoms reported EENTM: No Symptoms Reported Respiratory: No Symptoms Reported Cardiovascular: See HPI Gastrointestinal: No Symptoms Reported Genitourinary: No Symptoms Reported Musculoskeletal: no symptoms reported Skin: no symptoms reported Psychiatric/Neurological: No Symptoms Reported Endocrine: No Symptoms Reported Hematologic/Lymphatic: No Symptoms Reported Past Lxahxga-Dzbngv-Cejmka Hx Past Med/Social Hx: Reviewed and Corrections made Patient Social History Alcohol Use: Rarely Uses Recreational Drug Use: No Smoking Status: Never a Smoker 2nd Hand Smoke Exposure: Yes Recent Foreign Travel: No Contact w/Someone Who Travel: No Recent Infectious Disease Expo: No Recent Hopitalizations: No Immunizations Up To Date Tetanus Booster (TDap): Unknown PED Vaccines UTD: No Date of Pneumonia Vaccine: January 22, 1996 Past Medical History Surgeries: Yes (SINUS ) Section, Thyroidectomy Respiratory: Yes Asthma, COPD Currently Using CPAP: No Currently Using BIPAP: No Cardiac: Yes (A-Fib dx 5-5-16) Atrial Fibrillation, Heart Attack (anoxic due to pneumonia) Neurological: Yes 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 Sexually Transmitted Disease: No HIV/AIDS: No Gastrointestinal: No Musculoskeletal: Yes Arthritis Endocrine: Yes Hyperthyroidism, Hypothyroidsim Cancer: No Psychosocial: Yes Depression Integumentary: No Blood Disorders: No Family Medical History Asthma 19 FATHER G8 BROTHER G8 BROTHER G8 BROTHER Myocardial infarction 19 FATHER, Onset:60 years & older Asthma, CAD Over 55 Years Old Physical Exam Vital Signs Vital Signs - First Documented 01/13/19 09:41 Temp 98.1 Pulse 52 Resp 15 B/P (MAP) 196/106 (136) Pulse Ox 97 O2 Delivery Room Air Capillary Refill : Less Than 3 Seconds Height, Weight, BMI Height: 5'2.00" Weight: 177lbs. 9.0oz. 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, 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 Norm as Tested Skin: Normal Color, Warm/Dry Progress/Results/Core Measures Results/Orders Lab Results Laboratory Tests Test 01/13/19 10:15 Range/Units White Blood Count 11.3 H 4.3-11.0 10^3/uL Red Blood Count 5.12 4.35-5.85 10^6/uL Hemoglobin 14.2 11.5-16.0 G/DL Hematocrit 44 35-52 % Mean Corpuscular Volume 86 80-99 FL Mean Corpuscular Hemoglobin 28 25-34 PG Mean Corpuscular Hemoglobin Concent 32 32-36 G/DL Red Cell Distribution Width 15.4 H 10.0-14.5 % Platelet Count 235 130-400 10^3/uL Mean Platelet Volume 10.9 H 7.4-10.4 FL Neutrophils (%) (Auto) 72 42-75 % Lymphocytes (%) (Auto) 18 12-44 % Monocytes (%) (Auto) 7 0-12 % Eosinophils (%) (Auto) 3 0-10 % Basophils (%) (Auto) 0 0-10 % Neutrophils # (Auto) 8.1 H 1.8-7.8 X 10^3 Lymphocytes # (Auto) 2.0 1.0-4.0 X 10^3 Monocytes # (Auto) 0.8 0.0-1.0 X 10^3 Eosinophils # (Auto) 0.3 0.0-0.3 10^3/uL Basophils # (Auto) 0.0 0.0-0.1 10^3/uL Prothrombin Time 13.3 12.2-14.7 SEC INR Comment 1.0 0.8-1.4 Activated Partial Thromboplast Time 40 H 24-35 SEC Sodium Level 139 135-145 MMOL/L Potassium Level 4.1 3.6-5.0 MMOL/L Chloride Level 101 98-107 MMOL/L Carbon Dioxide Level 30 21-32 MMOL/L Anion Gap 8 5-14 MMOL/L Blood Urea Nitrogen 13 7-18 MG/DL Creatinine 0.76 0.60-1.30 MG/DL Estimat Glomerular Filtration Rate > 60 BUN/Creatinine Ratio 17 Glucose Level 93 70-105 MG/DL Calcium Level 9.4 8.5-10.1 MG/DL Corrected Calcium 9.4 8.5-10.1 MG/DL Magnesium Level 2.4 1.8-2.4 MG/DL Total Bilirubin 1.0 0.1-1.0 MG/DL Aspartate Amino Transf (AST/SGOT) 20 5-34 U/L Alanine Aminotransferase (ALT/SGPT) 26 0-55 U/L Alkaline Phosphatase 84 40-136 U/L Myoglobin 34.5 10.0-92.0 NG/ML Troponin I < 0.028 <0.028 NG/ML Total Protein 6.8 6.4-8.2 GM/DL Albumin 4.0 3.2-4.5 GM/DL Thyroid Stimulating Hormone (TSH) 3.37 0.35-4.94 UIU/ML Free Thyroxine 1.18 0.70-1.48 NG/DL My Orders Orders - BRISEIDA VUONG MD Cbc With Automated Diff (01/13/19 09:50) Magnesium (01/13/19 09:50) Ekg Tracing (01/13/19 09:50) Cardiac Profile 1 (01/13/19 09:50) Comprehensive Metabolic Panel (01/13/19 09:50) Myoglobin Serum (01/13/19 09:50) Protime With Inr (01/13/19 09:50) Partial Thromboplastin Time (01/13/19 09:50) O2 (01/13/19 09:50) Monitor-Rhythm Ecg Trace Only (01/13/19 09:50) Ed Iv/Invasive Line Start (01/13/19 09:50) Nitroglycerin 0.4 Mg Btl 25's (Nitrostat (01/13/19 10:00) Aspirin Chewable Tablet (Baby Aspirin Ch (01/13/19 10:00) Nitroglycerin 0.4 Mg Btl 25's (Nitrostat (01/13/19 09:50) Aspirin Chewable Tablet (Baby Aspirin Ch (01/13/19 09:50) Thyroid Stimulating Hormone (01/13/19 10:15) Free T4 (Free Thyroxine) (01/13/19 10:15) Chest Pa/Lat (2 View) (01/13/19 10:17) Lidocaine 2% Viscous 15 Ml (Xylocaine Vi (01/13/19 11:30) Antacid Suspension (Mylanta Suspension (01/13/19 11:30) Famotidine Injection (Pepcid Injection) (01/13/19 11:18) Ct Angio Chest W (01/13/19 11:46) Iohexol Injection (Omnipaque 350 Mg/Ml 1 (01/13/19 12:00) Received Contrast (Hold Metformin- Contr (01/13/19 12:00) Medications Given in ED Vital Signs/I&O 01/13/19 01/13/19 09:41 09:41 Temp 98.1 Pulse 52 Resp 15 B/P (MAP) 196/106 (136) Pulse Ox 97 O2 Delivery Room Air Blood Pressure Mean: 136 Progress Progress Note #1: Time: 11:26 Progress Note Patient was administered aspirin and nitroglycerin after assessment. Nitroglycerin took away her chest pain. She has some residual pain in her back that is described as an intermittent aching rated as 3 out of 10. Workup is unremarkable thus far. A GI cocktail and Pepcid is being administered now. Progress Note #2: Time: 11:54 Progress Note Patient states she may have had some improvement with GI cocktail but still rates her pain as 3/10 in her back. I discussed the case with Dr. Shea who recommends CT angiogram of the chest to rule out aortic pathology. I agree with this recommendation and CT has been ordered. Progress Note #3: Time: 12:[address] angiogram was negative. Patient is being admitted to Dr. Shea for chest pain rule out. Pain is still controlled at this time. Initial ECG Impression Date: Jan 13, 2019 Initial ECG Impression Time: 09:44 Initial ECG Rate: 50 Initial ECG Rhythm: Normal Sinus Initial ECG Intervals: Normal Initial ECG Impression: Normal Comment Normal sinus rhythm with no ST elevation or depression. No abnormal intervals or axis deviation. Diagnostic Imaging Diagonstic Imaging: Xray Plain Films/CT/US/NM/MRI: chest Comments Chest x-ray viewed by me and report reviewed. Compared with prior. See report below: NAME: ABIGAIL BARRON [facility] REC#: [id number] PT STATUS: REG ER : 1965 PHYSICIAN: BRISEIDA VUONG MD ADMIT DATE: 01/13/19/ER Draft Date of Exam:01/13/19 CHEST PA/LAT (2 VIEW) INDICATION: Chest pain. Compared 02/15/2018 FINDINGS: The heart size within normal limits. There is no abnormal distention of the vascularity. There is some very mild perihilar and basilar curvilinear subsegmental atelectasis. No evidence for pneumonia or edema. There is no pleural fluid. IMPRESSION: Minimal zones of atelectasis, otherwise negative. Dictated on workstation # [id number] Dict: 01/13/19 1032 Trans: 01/13/19 1043 LE [id number] Interpreted by: RAFIA BENTLEY Diagonstic Imaging: CT Plain Films/CT/US/NM/MRI: chest Comments CT chest viewed by me and report reviewed. See report below: NAME: ABIGAIL BARRON [facility] REC#: [id number] PT STATUS: REG ER : 1965 PHYSICIAN: BRISEIDA VUONG MD ADMIT DATE: 01/13/19/ER Draft Date of Exam:01/13/19 CT ANGIO CHEST W PROCEDURE: CT angiography of the chest with contrast. TECHNIQUE: Multiple contiguous axial images were obtained through the chest after uneventful bolus administration of intravenous contrast. 2D reconstructed CTA MIP acquisitions were also performed. Auto Exposure Controls were utilized during the CT exam to meet ALARA standards for radiation dose reduction. INDICATION: Chest and back pain. COMPARISON: Chest radiograph from 01/13/2019. FINDINGS: Normal-caliber thoracic aorta without evidence of dissection. No large or central pulmonary artery filling defects. Normal heart size. No pericardial effusion. No mediastinal, hilar, or axillary lymphadenopathy. Bilateral breast prostheses. Scant atelectasis. No dense consolidation. No endobronchial lesions. No pleural effusion or pneumothorax. No acute osseous findings. The visualized upper abdominal contents are negative. IMPRESSION: 1. No thoracic aortic aneurysm or dissection. No pulmonary emboli. 2. Scant atelectasis in the lungs. No other acute findings in the chest. Dictated on workstation # [id number] Dict: 01/13/19 1226 Trans: 01/13/19 1237 AS6 [id number] Interpreted by: ROLANDA NÚÑEZ MD Departure Communication (Admissions) Time/Spoke to Admitting Phy: 11:45 Dr. Shea Impression Primary Impression: Chest pain Qualified Codes: R07.9 - Chest pain, unspecified Additional Impressions: Essential hypertension Near syncope Paroxysmal atrial fibrillation Disposition: ADMITTED INPATIENT Condition: Improved Admissions Decision to Admit Reason: Admit from ER (General) Decision to Admit/Date: Jan 13, 2019 Time/Decision to Admit Time: 11:45 Departure-Patient Inst. Referrals: BRITTNEY QUINONEZ (PCP/Family) Primary Care Physician BRISEIDA VUONG MD Jan 13, 2019 10:38
[2019-01-13 10:41] LABS: ALANINE AMINOTRANSFERASE 26 U/L (0-55); ALKALINE PHOSPHATASE 84 U/L (40-136); BUN/CREATININE RATIO 17; CALCIUM 9.4 MG/DL (8.5-10.1); CARBON DIOXIDE 30 MMOL/L (21-32); CHLORIDE 101 MMOL/L (98-107); CREATININE SERUM 0.76 MG/DL (0.60-1.30); GFR ESTIMATED > 60; GLUCOSE 93 MG/DL (70-105); MAGNESIUM 2.4 MG/DL (1.8-2.4); POTASSIUM 4.1 MMOL/L (3.6-5.0); SODIUM 139 MMOL/L (135-145); TOTAL PROTEIN 6.8 GM/DL (6.4-8.2)
--- NOTE | 2019-01-13 10:43 | Diagnostic Imaging Report ---
INDICATION: Chest pain. Compared 02/15/2018 FINDINGS: The heart size within normal limits. There is no abnormal distention of the vascularity. There is some very mild perihilar and basilar curvilinear subsegmental atelectasis. No evidence for pneumonia or edema. There is no pleural fluid. IMPRESSION: Minimal zones of atelectasis, otherwise negative. Dictated by: Dictated on workstation # [id number]
[2019-01-13 11:03] LABS: FREE T4 (FREE THYROXINE) 1.18 NG/DL (0.70-1.48)
[2019-01-13] MEDS ORDERED: FAMOTIDINE 20MG/2ML IV (PEPCID) IV STA (11:18)
[2019-01-13] MEDS ORDERED: ANTACID SUSP 30 ML UDC (MYLANTA) PO ONE (11:30)
[2019-01-13] MEDS ORDERED: LIDOCAINE 2% VISCOUS 15 ML UDC PO ONE (11:30)
[2019-01-13] MEDS ORDERED: IOHEXOL 350 MG/ML 150 ML (OMNIPAQUE 350) VIAL IV ONE (12:00)
[2019-01-13] MEDS ORDERED: HOLD METFORMIN - RECEIVED CONTRAST 20 ML VIAL IV SCH (12:00)
--- NOTE | 2019-01-13 12:37 | Diagnostic Imaging Report ---
PROCEDURE: CT angiography of the chest with contrast. TECHNIQUE: Multiple contiguous axial images were obtained through the chest after uneventful bolus administration of intravenous contrast. 2D reconstructed CTA MIP acquisitions were also performed. Auto Exposure Controls were utilized during the CT exam to meet ALARA standards for radiation dose reduction. INDICATION: Chest and back pain. COMPARISON: Chest radiograph from 01/13/2019. FINDINGS: Normal-caliber thoracic aorta without evidence of dissection. No large or central pulmonary artery filling defects. Normal heart size. No pericardial effusion. No mediastinal, hilar, or axillary lymphadenopathy. Bilateral breast prostheses. Scant atelectasis. No dense consolidation. No endobronchial lesions. No pleural effusion or pneumothorax. No acute osseous findings. The visualized upper abdominal contents are negative. IMPRESSION: 1. No thoracic aortic aneurysm or dissection. No pulmonary emboli. 2. Scant atelectasis in the lungs. No other acute findings in the chest. Dictated by: Dictated on workstation # [id number]
--- NOTE | 2019-01-13 12:47 | Cardiology History & Physical ---
HPI-Cardiology Cardiology H&P Date of Admission 01-13-19 Primary Care Physician London Castillo Attending Physician Yani Shea MD Consulting Physician [facility] Ms. Barron is a 53 year old female who we have seen in the ED. She reports she was at work this morning, standing at her work computer when she had a sudden onset of sharp, stabbing, mid-sternal chest pain which lasted for approx a minute. It radiated through to her back. She reports she felt dizzy and everything started to go black. She sat down and after a few seconds the dizziness resolved. She reports she continued to have back pain and is still having mid back pain. She reports worsening discomfort with a deep breath in her back. It is not reproducible with palpation. She reports she went to the on site clinic and took her BP. She reports it was 180/102. She states she came to the ED. She reports no further c/o CP, but she continues to have back pain. She states she recently completed abx d/t URI and a oral steroids which she finished a few days ago. She reports bilat intermittent LE swelling. No syncope. She reports she has been having nausea for the last week. No c/o diarrhea or vomiting. She has chronic mild exertional dyspnea which is better than last week. Review of Systems-Cardiology Review of Systems Constitutional: No chills, No fever; lightheadedness; No malaise Eyes: No blindness, No vision change Ears/Nose/Throat: No epistaxis, No recent hearing loss, No ulcerations Respiratory: As described under HPI Cardiovascular: As described under HPI Gastrointestinal: No constipation, No diarrhea; nausea; No vomiting Genitourinary: No dysuria, No hematuria Musculoskeletal: no symptoms reported Skin: No rash, No ulcerations Psychiatric/Neurological: No anxiety, No depression, No seizure, No focal weakness, No syncope Hematologic: No bleeding abnormalities RXT-[id number]-Kqaaqx Hx Patient Social History Alcohol Use: Rarely Uses Recreational Drug Use: No Smoking Status: Never a Smoker 2nd Hand Smoke Exposure: Yes Recent Foreign Travel: No Recent Infectious Disease Expo: No Hospitalization with Isolation: Denies Immunizations Up To Date Tetanus Booster (TDap): Unknown Date of Pneumonia Vaccine: January 22, 1996 Past Medical History PMH As described under Assessment. Family Medical History Family Medical History: No fam h/o early CAD, SCD except that father of a heart attack at age 63 Family History: Asthma 19 FATHER G8 BROTHER G8 BROTHER G8 BROTHER Myocardial infarction 19 FATHER, Onset:60 years & older Allergies and Home Medications Allergies Coded Allergies: Penicillins (Verified Allergy, Unknown, 01/13/19) Sulfa (Sulfonamide Antibiotics) (Verified Allergy, Unknown, 01/13/19) Home Medications Albuterol Sulfate 8.5 Gm Hfa.aer.ad, 2 PUFF IH Q6H PRN for SHORTNESS OF BREATH, (Reported) Amlodipine Besylate 5 Mg Tablet, 5 MG PO DAILY Prescribed by: KIERA MCGRATH on 01/14/19 0846 Apixaban 5 Mg Tablet, 5 MG PO HS, (Reported) Beclomethasone Dipropionate 10.6 Gm Hfa.aeroba, 2 PUFF IH HS, (Reported) LAST FILLED #1 INHALER 18 Cetirizine HCl 10 Mg Tablet, 10 MG PO HS, (Reported) Diltiazem HCl 180 Mg Cap.er.24h, 180 MG PO HS, (Reported) LAST FILLED #30 18 Fluoxetine HCl 20 Mg Capsule, 20 MG PO HS, (Reported) Fluticasone Propionate 16 Gm [place].susp, 2 SPRAYS NS BID PRN for CONGESTION, ( Reported) Fluticasone/Salmeterol 1 Each Blst.w.dev, 1 PUFF IH HS, (Reported) Ipratropium [place] 12.9 Gm Aers, 1 PUFF IH HS, (Reported) LAST FILLED #1 INHALER 18 Ipratropium/Albuterol Sulfate 3 Ml Ampul.neb, 3 ML NEB Q6H PRN for SHORTNESS OF BREATH, (Reported) LAST FILLED SEPTEMBER 2017 Levothyroxine Sodium 125 Mcg Tablet, 125 MCG PO DAILY, (Reported) Montelukast Sodium 10 Mg Tablet, 10 MG PO HS, (Reported) LAST FILLED #30 18 Pantoprazole Sodium 40 Mg Tablet.dr, 40 MG PO DAILY Prescribed by: KIERA MCGRATH on 01/14/19 0846 Physical Exam-Cardiology Physical Exam Vital Signs/I&O Capillary Refill : Less Than 3 Seconds Constitutional: AAO x 3, well-developed, well-nourished HEENT: PERRL, hearing is well preserved, oral hygience is good Neck: No carotid bruit; carotid pulses are 2 + bilaterally Respiratory: No accessory muscle use, No respiratory distress; chest expansion is symmetric, chest is bilaterally symmetric, lungs clear to auscultation Cardiovascular: regular rate-rhythm; No JVD; bradycardia, S1 and S2 Gastrointestinal: No tender; soft, round, audible bowel sounds Rectal: deferred Extremities: no lower extremity edema bilateral Neurologic/Psychiatric: grossly intact, power is 5/5 both on sides Skin: No rash, No ulcerations Data Review Labs Radiology NAME: ABIGAIL BARRON [facility] REC#: [id number] PT STATUS: REG ER : 1965 PHYSICIAN: BRISEIDA VUONG MD ADMIT DATE: 01/13/19/ER Draft Date of Exam:01/13/19 CT ANGIO CHEST W PROCEDURE: CT angiography of the chest with contrast. TECHNIQUE: Multiple contiguous axial images were obtained through the chest after uneventful bolus administration of intravenous contrast. 2D reconstructed CTA MIP acquisitions were also performed. Auto Exposure Controls were utilized during the CT exam to meet ALARA standards for radiation dose reduction. INDICATION: Chest and back pain. COMPARISON: Chest radiograph from 01/13/2019. FINDINGS: Normal-caliber thoracic aorta without evidence of dissection. No large or central pulmonary artery filling defects. Normal heart size. No pericardial effusion. No mediastinal, hilar, or axillary lymphadenopathy. Bilateral breast prostheses. Scant atelectasis. No dense consolidation. No endobronchial lesions. No pleural effusion or pneumothorax. No acute osseous findings. The visualized upper abdominal contents are negative. IMPRESSION: 1. No thoracic aortic aneurysm or dissection. No pulmonary emboli. 2. Scant atelectasis in the lungs. No other acute findings in the chest. Dictated on workstation # [id number] Dict: 01/13/19 1226 Trans: 01/13/19 1237 [id number] [id number] Interpreted by: ROLANDA NÚÑEZ MD Electronically signed by: ECG Impression ECG Initial ECG Rhythm: Normal Sinus A/P-Cardiology Assessment/Admission Diagnosis Chest pain of undetermined etiology - no evidence of ACS H/O PAF - currently SR - SB H/o TIAs, 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 Trivial TR. PASP estimated to be approx 35mmHg. No evidence of any significant valvular stenosis MPI of 03-09-2018 showed no ischemia or infarction. LVEF 63% Chronic OAC with Eliquis H/o hypertension H/o breast implants and tummy tuck surgery S/P thyroidectomy in 2018 which is being managed by endocrinology and her PCP - TSH 3.37 (WNL) today COPD for which she is establishing care with Dr. Brown (previously had seen pulmonology services at ) H/o bilat carpal tunnel syndrome Bilat leg discomfort suggestive , no evidence of significant obstructive PAD on seg pressures of December 2016 Admission Status: Observation Discussion and Recomendations Chest discomfort of undetermined etiology - no evidence of ACS thus far - monitor cardiac analyzers H/O PAF - currently SR- SB, therefore we will hold BB (Metoprolol succinate 100mg daily), but continue low dose Cardizem CD 180mg daily Continue OAC with Eliquis Initiate PPI Monitor lab Monitor on tele Further recs will be based on her hospital course Continue thyroid replacement Admit to Cardiac step down Clinical Quality Measures AMI/AHF: ASA po Prior to arrival: SVETA Gonsalves Jan 13, 2019 12:47
--- NOTE | 2019-01-13 13:10 | NUR ---
MOTHER AND PATIENT CHOOSE NOT TO DO CT DUE TO WOULD HAVE REMOVE PIERCINGS.
[2019-01-13] MEDS ORDERED: PATIENT MAY USE OWN MEDS, ALL PO SCH (13:45)
[2019-01-13] MEDS ORDERED: PANTOPRAZOLE 40 MG (PROTONIX) TAB PO NR (14:00)
--- NOTE | 2019-01-13 14:00 | NUR ---
Spoke with ANDREI Cortez, about pt medications. Dana stated to give pt her home Cardizem dose but do not give pt metoprolol due to pt bradycardia.
[2019-01-13 14:15] VITALS: BP 161/96
[2019-01-13] MEDS ORDERED: morphine INJ 4 MG/ML 1 ML (VIAL/SYRINGE) IV PRN (14:15)
[2019-01-13] MEDS ORDERED: CATHETER FLUSH 10 ML SYR IV PRN ×2 (14:15→15:00)
--- NOTE | 2019-01-13 14:26 | NUR ---
ABIGAIL BARRON admitted to room CU1-1, with an admitting diagnosis of Chest Pain, on 01/13/19 from [place] via wheelchair, accompanied by staff.ABIGAIL BARRON introduced to surroundings, call light, bed controls, phone, TV, temperature control, lights, meal times, smoking policy, visitor policy, side rail policy, bathrooms and showers. Patient Rights given to patient in the handbook. ABIGAIL BARRON verbalizes understanding that [facility] is not responsible for the loss or damage to any personal effects or valuables that are kept in the patients posession during their hospitalization. The following Patient Care Plans were discussed with the pt: Discharge Planning. ABIGAIL BARRON verbalizes understanding of Interdisciplinary Patient Education. Patient and/or family were informed about the Rapid Response Team and its purpose.
[2019-01-13] MEDS ORDERED: amLODIPine 5 MG (NORVASC) TAB PO NR (14:45)
--- NOTE | 2019-01-13 14:52 | Cardiology History & Physical ---
HPI-Cardiology Cardiology H&P Date of Admission 01/13/19 Primary Care Physician London Castillo Attending Physician Yani Shea MD [facility] Consulting Physician [facility] Ms. Ward is a 53 year old female who we have seen in the ED. She reports she was at work this morning, standing at her work computer when she had a sudden onset of sharp, stabbing, mid-sternal chest pain which lasted for approx a minute. It radiated through to her back. She reports she felt dizzy and everything started to go black. She sat down and after a few seconds the dizziness resolved. She reports she continued to have back pain and is still having mid back pain. She reports worsening discomfort with a deep breath in her back. It is not reproducible with palpation. She reports she went to the on site clinic and took her BP. She reports it was 180/102. She states she came to the ED. She reports no further c/o CP, but she continues to have back pain. She states she recently completed abx d/t URI and a oral steroids which she finished a few days ago. She reports bilat intermittent LE swelling. No syncope. She reports she has been having nausea for the last week. No c/o diarrhea or vomiting. She has chronic mild exertional dyspnea which is better than last week. Review of Systems-Cardiology Review of Systems Constitutional: No chills, No fever; lightheadedness; No malaise Eyes: No blindness, No vision change Ears/Nose/Throat: No epistaxis, No recent hearing loss, No ulcerations Respiratory: As described under HPI Cardiovascular: As described under HPI Gastrointestinal: No constipation, No diarrhea; nausea; No vomiting Genitourinary: No dysuria, No hematuria Musculoskeletal: no symptoms reported Skin: No rash, No ulcerations Psychiatric/Neurological: No anxiety, No depression, No seizure, No focal weakness, No syncope Hematologic: No bleeding abnormalities YRO-Xmpfly-Rnqpmv Hx Patient Social History Alcohol Use: Rarely Uses Recreational Drug Use: No Smoking Status: Never a Smoker 2nd Hand Smoke Exposure: Yes Recent Foreign Travel: No Recent Infectious Disease Expo: No Hospitalization with Isolation: Denies Physical Abuse Screen: No Sexual Abuse: No Immunizations Up To Date Tetanus Booster (TDap): Unknown Date of Pneumonia Vaccine: January 22, 1996 Past Medical History PMH As described under Assessment. Family Medical History Family Medical History: No fam h/o early CAD, SCD except that father of a heart attack at age 63 Family History: Asthma 19 FATHER G8 BROTHER G8 BROTHER G8 BROTHER Myocardial infarction 19 FATHER, Onset:60 years & older Allergies and Home Medications Allergies Coded Allergies: Penicillins (Verified Allergy, Unknown, 01/13/19) Sulfa (Sulfonamide Antibiotics) (Verified Allergy, Unknown, 01/13/19) Home Medications Albuterol Sulfate 8.5 Gm Hfa.aer.ad, 1 PUFF IH QID PRN for SHORTNESS OF BREATH, (Reported) Albuterol Sulfate 2.5 Mg/3 Ml Vial.neb, 2.5 MG IH Q6H PRN for SHORTNESS OF BREATH, (Reported) * LAST FILLED 2011 * STILL IN GOOD DATING Apixaban 5 Mg Tablet, 5 MG PO BID, (Reported) Beclomethasone Dipropionate 8.7 Gm Aer.w.adap, 1 PUFF IH BID, (Reported) 40 MCG/ACTUATION DOSE INHALER Cetirizine Hcl 10 Mg Capsule, 10 MG PO DAILY, (Reported) Diltiazem HCl 180 Mg Cap.er.24h, 180 MG PO DAILY, (Reported) Epinephrine 0.3 Mg/0.3 Ml Pen.injctr, 0.3 MG IM PRN, (Reported) PATIENT NOT SURE IF MEDICATION HAS GOOD DATING OR NOT, MAY BE Fluoxetine HCl 20 Mg Capsule, 20 MG PO DAILY, (Reported) Fluticasone Propionate 16 Gm [place], 2 SPRAYS NSEACH DAILY, (Reported) Fluticasone/Salmeterol 1 Each Blst.w.dev, 1 PUFF IH BID, (Reported) Ipratropium Rhodhiss 12.9 Gm Aers, 2 PUFF IH QID, (Reported) Methimazole 5 Mg Tablet, 5 MG PO TID Prescribed by: MACKENZIE RAYMOND on 02/28/16 1102 Metoprolol Succinate 50 Mg Tab.er.24h, 50 MG PO BID Prescribed by: SVETA COOK on 02/29/16 1210 Montelukast Sodium 10 Mg Tab, 10 MG PO HS, (Reported) Patient Home Medication List Home Medication List Reviewed: Yes Physical Exam-Cardiology Physical Exam Vital Signs/I&O 01/13/19 01/13/19 01/13/19/25/19 09:41 09:41 13:40 14:14 Temp 98.1 98.1 Pulse 52 50 49 Resp 15 15 B/P (MAP) 196/106 (136) 141/106 (118) Pulse Ox 97 95 O2 Delivery Room Air Room Air 01/13/19 01/13/19 14:15 14:15 Temp 98.0 Pulse 50 Resp 16 B/P (MAP) 161/96 161/96 (117) Pulse Ox 95 93 O2 Delivery Room Air Room Air Capillary Refill : Less Than 3 Seconds Constitutional: AAO x 3, well-developed, well-nourished HEENT: PERRL, hearing is well preserved, oral hygience is good Neck: No carotid bruit; carotid pulses are 2 + bilaterally Respiratory: No accessory muscle use, No respiratory distress; chest expansion is symmetric, chest is bilaterally symmetric, lungs clear to auscultation Cardiovascular: regular rate-rhythm; No JVD; bradycardia, S1 and S2 Gastrointestinal: No tender; soft, round, audible bowel sounds Rectal: deferred Extremities: no lower extremity edema bilateral Neurologic/Psychiatric: grossly intact, power is 5/5 both on sides Skin: No rash, No ulcerations Data Review Labs Laboratory Tests 01/13/19 10:15: White Blood Count 11.3H, Red Blood Count 5.12, Hemoglobin 14.2, Hematocrit 44, Mean Corpuscular Volume 86, Mean Corpuscular Hemoglobin 28, Mean Corpuscular Hemoglobin Concent 32, Red Cell Distribution Width 15.4H, Platelet Count 235, Mean Platelet Volume 10.9H, Neutrophils (%) (Auto) 72, Lymphocytes (%) (Auto) 18 , Monocytes (%) (Auto) 7, Eosinophils (%) (Auto) 3, Basophils (%) (Auto) 0, Neutrophils # (Auto) 8.1H, Lymphocytes # (Auto) 2.0, Monocytes # (Auto) 0.8, Eosinophils # (Auto) 0.3, Basophils # (Auto) 0.0, Prothrombin Time 13.3, INR Comment 1.0, Activated Partial Thromboplast Time 40H, Sodium Level 139, Potassium Level 4.1, Chloride Level 101, Carbon Dioxide Level 30, Anion Gap 8, Blood Urea Nitrogen 13, Creatinine 0.76, Estimat Glomerular Filtration Rate > 60 , BUN/Creatinine Ratio 17, Glucose Level 93, Calcium Level 9.4, Corrected Calcium 9.4, Magnesium Level 2.4, Total Bilirubin 1.0, Aspartate Amino Transf ( AST/SGOT) 20, Alanine Aminotransferase (ALT/SGPT) 26, Alkaline Phosphatase 84, Myoglobin 34.5, Troponin I < 0.028, Total Protein 6.8, Albumin 4.0, Thyroid Stimulating Hormone (TSH) 3.37, Free Thyroxine 1.18 A/P-Cardiology Assessment/Admission Diagnosis Chest pain of undetermined etiology - no evidence of ACS H/O PAF - currently SR - SB H/o TIAs, 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 Trivial TR. PASP estimated to be approx 35mmHg. No evidence of any significant valvular stenosis MPI of 03-09-2018 showed no ischemia or infarction. LVEF 63% Chronic OAC with Eliquis H/o hypertension H/o breast implants and tummy tuck surgery S/P thyroidectomy in 2017 which is being managed by endocrinology and her PCP - TSH 3.37 (WNL) today COPD for which she is establishing care with Dr. Brown (previously had seen pulmonology services at ) H/o bilat carpal tunnel syndrome Bilat leg discomfort suggestive , no evidence of significant obstructive PAD on seg pressures of December 2016 Admission Status: Observation Discussion and Recomendations Chest discomfort of undetermined etiology - no evidence of ACS thus far - monitor cardiac analyzers H/O PAF - currently SR- SB, therefore we will hold BB (Metoprolol succinate 100mg daily), but continue low dose Cardizem CD 180mg daily Continue OAC with Eliquis Initiate PPI Monitor lab Monitor on tele Further recs will be based on her hospital course Continue thyroid replacement Admit to Cardiac step down Clinical Quality Measures AMI/AHF: ASA po Prior to arrival: No DVT/VTE Risk/Contraindication: Risk Factor Score Per Nursin RFS Level Per Nursing on Admit: 2=Moderate YANI SHEA MD FACP FAC CCDS Jan 13, 2019 14:52
[2019-01-13 15:00] VITALS: BP 129/76
[2019-01-13] MEDS ORDERED: ONDANSETRON 4 MG/2 ML (SDV) Z0FRAN IV PRN (15:00)
[2019-01-13] MEDS ORDERED: LEVO125T6 PO (15:10)
[2019-01-13] MEDS ORDERED: CETI10TA17 PO (15:10)
[2019-01-13] MEDS ORDERED: FLUT16SP22 NS (15:10)
[2019-01-13] MEDS ORDERED: FLUO20CA25 PO (15:10)
[2019-01-13] MEDS ORDERED: METF-397 PO (15:10)
[2019-01-13] MEDS ORDERED: METO-395 PO (15:10)
[2019-01-13] MEDS ORDERED: BECL10.62 IH (15:24)
[2019-01-13] MEDS ORDERED: IPRA3AMP31 NEB (15:24)
[2019-01-13] MEDS ORDERED: DILT180C PO (15:24)
[2019-01-13] MEDS ORDERED: MONT10TA24 PO (15:24)
--- OUTSIDE RECORDS SUMMARY | 2019-01-13 15:30 | XMS REPORT | Encounter Summary ---
Author Author [facility] Organization [facility] Address Unknown Phone Unavailable Care Team Providers Care Clinical Auditor Name Role Phone Gopi Julian MD Unavailable Unavailable Artie Vela MD Unavailable Raysa Horton MD Unavailable Unavailable Janel Lozada MD PCP Unavailable Janel Lozada MD 100 Unavailable Reason for Visit * Reason Comments Medication Refill Encounter Details Care Team Description Date Type Department Janel Lozada MD [address] [place] [address] 01/04/[address] [facility] [address] [facility] Level [address] [place] [id number] Social History Date Tobacco Use Types Packs/Day [...]
--- OUTSIDE RECORDS SUMMARY | 2019-01-13 15:30 | XMS REPORT | Encounter Summary ---
Author Author [facility] Organization [facility] Address Unknown Phone Unavailable Care Team Providers Care Testing Projects Administrator Name Role Phone Gopi Julian MD Unavailable Unavailable Artie Vela MD Unavailable Raysa Horton MD Unavailable Unavailable Janel Lozada MD PCP Unavailable Janel Lozada MD 100 Unavailable Reason for Visit * Reason Comments Appointment Encounter Details Care Team Description Date Type Department Janel Lozada MD [address] [place] [address] Appointment 12/10/2018 Telephone [facility] [address] [facility] [address] [place] [address] Social History Date Tobacco Use [...]
--- OUTSIDE RECORDS SUMMARY | 2019-01-13 15:30 | XMS REPORT | Encounter Summary ---
Author Author [facility] Organization [facility] Address Unknown Phone Unavailable Care Team Providers Care Volcanology Teacher Name Role Phone Gopi Julian MD Unavailable Unavailable Artie Vela MD Unavailable Raysa Horton MD Unavailable Unavailable Janel Lozada MD PCP Unavailable Janel Lozada MD 100 Unavailable Reason for Visit * Reason Comments Medication Refill Encounter Details Care Team Description Date Type Department Janel Lozada MD [address] [place] [address] Medication Refill 11/03/2018 Telephone [facility] [address] [facility] [place] [address] [place] [address] Social History Date Tobacco Use [...] * Telephone Encounter - Lindy Sanchez - 11/03/2018 12:52 PM COAL WEIGHER Spoke to pt and scheduled an appt w/ Dr. Lozada on 11/23/18 at 1:45pm. Pt states she'd like to discuss her inhaler as well as a "black spot on my side that might be cancerous." Pt stated that it itches occasionally and is raised off her skin. WEIGHER * Telephone Encounter - Vida Corbett LPN - 11/03/2018 9:01 AM COAL WEIGHER Qvar outside nursing protocol and not on pts list. Last filled 2013. Routing to Dr. Lozada for review and advisement. WEIGHER * Telephone Encounter - Vida Corbett LPN - 11/03/2018 8:59 AM COAL WEIGHER Medication refilled per protocol. WEIGHER documented in this encounter Plan of Treatment Not on filedocumented as of this encounter Visit Diagnoses Diagnosis Asthma Unspecified asthma documented in this encounter
--- OUTSIDE RECORDS SUMMARY | 2019-01-13 15:30 | XMS REPORT | Encounter Summary ---
Author Author [facility] Organization [facility] Address Unknown Phone Unavailable Care Team Providers Care Nremt Name Role Phone Gopi Julian MD Unavailable Unavailable Artie Vela MD Unavailable Raysa Horton MD Unavailable Unavailable Janel Lozada MD PCP Unavailable Janel Lozada MD 100 Unavailable Encounter Details Care Team Description Date Type Department Elgin Garza MD [address] Ortho/Med Pavilion Lvl [address] [place] [address] Disorder of the skin and subcutaneous tissue, unspecified 12/29/2018 Hospital [facility] Encounter [facility] [address] [address] Social History Date Tobacco Use Types Packs/Day [...] PATHOLOGY (12/29/2018 2:03 PM CDT) PATHOLOGY [facility] [employer] [facility] [email or web address] Department of Pathology and Laboratory Medicine [address] [place] [address] Surgical Pathology Office:[phone] :[phone] SURGICAL PATHOLOGY REPORT NAME: BRITTANIE BARRON SURG PATH #: [id number] MR #: [id number] SPECIMEN CLASS: SR BILLING #: [id number] ALT ID #:LOCATION: [facility] DATE OF PROCEDURE: 12/29/2018 AGE:53 SEX: F [...] ab/12/29/2018 Performing Organization Address City/State/Zipcode Phone Number [facility] [address] [place] [address] documented in this encounter Visit Diagnoses Not on filedocumented in this encounter
--- OUTSIDE RECORDS SUMMARY | 2019-01-13 15:30 | XMS REPORT | Encounter Summary ---
Author Author [facility] Organization [facility] Address Unknown Phone Unavailable Care Team Providers Care Glue Reel Operator Name Role Phone Gopi Julian MD Unavailable Unavailable Artie Vela MD Unavailable Raysa Horton MD Unavailable Unavailable Janel Lozada MD PCP Unavailable Janel Lozada MD 100 Unavailable Reason for Visit * Reason Comments Procedure Encounter Details Care Team Description Date Type Department Brayan Garza MD [address] Ortho/Med Pavilion L[address] [place] [address] [phone] Skin lesion (Primary Dx) 12/29/2018 Procedure visit [facility] [address] [place] [id number] Social History Date Tobacco Use Types Packs/Day [...]
--- OUTSIDE RECORDS SUMMARY | 2019-01-13 15:30 | XMS REPORT | Clinical Summary ---
Author Author [facility] Organization [facility] Address Unknown Phone Unavailable Care Team Providers Care Criminal Profiler Name Role Phone Gopi Julian MD Unavailable Unavailable Artie Vela MD Unavailable Raysa Horton MD Unavailable Unavailable Janel Lozada MD PCP Unavailable Janel Lozada MD 100 Unavailable Source Comments Some departments are not documenting in the electronic medical record. If you do not see the information that you expected, contact Release of Information in the Health Information Management department at [phone] for further assistance in locating additional records.[facility] Allergies Comments Active Allergy Reactions Severity Noted [...] Overview: Added automatically from request for surgery [id number] Severe persistent asthma 08/18/2012 Bronchitis, mucopurulent recurrent 08/18/2012 Rhinosinusitis 08/18/2012 COPD (chronic obstructive pulmonary disease) 06/23/2012 Resolved Problems Problem Noted Date Resolved Date Multiple thyroid nodules 04/29/2018 05/26/2018 Overview: Added automatically from request for surgery [id number] Hyperthyroidism 01/22/2018 05/26/2018 Asthma exacerbation 06/06/2015 06/23/2018 Encounters Care Team Description Date Type Specialty Janel Lozada MD 01/04/2019 Refill Family Medicine Elgin Garza MD Disorder of the skin and [...] CDT Respiratory Rate 16 11/23/2018 1:57 PM SENIOR IT SECURITY ANALYST Oxygen Saturation 95% - Inhaled Oxygen - [...] Lot Implanted Type Area Manufactur er 11/25/2017 [id number] / [id number] / [id number] Implant Propel Mometasone Furoate Left: Nose INTERSECT 370 Mcg - Sna ENT Implanted: Qty: 1 on 07/20/2017 by Nabeel Aguirre MD 03/23/2018 [id number] / NA / [id number] Implant [employer] Mometasone Furoate Right: Nose INTERSECT 370 Mcg - Sna ENT Implanted: Qty: 1 on 07/20/2017 by Nabeel Aguirre MD Procedures Comments Procedure Name Priority Date/Time Associated Diagnosis SURGICAL PATHOLOGY 12/29/2018 2:03 PM CDT FREE T4 (FREE THYROXINE) Routine 11/23/2018 Hypothyroidism (acquired) ONLY 2:41 PM SENIOR IT SECURITY ANALYST THYROID STIMULATING Routine 11/23/2018 Hypothyroidism (acquired) HORMONE-TSH 2:41 PM SENIOR IT SECURITY ANALYST from Last 3 Months Results * SURGICAL PATHOLOGY (12/29/2018 2:03 PM CDT) PATHOLOGY [facility] [email or web address] Department of Pathology and Laboratory Medicine [address] [place] [address] Surgical Pathology Office:[phone] :[phone] SURGICAL PATHOLOGY REPORT NAME: BRITTANIE BARRON SURG PATH #: [id number] MR #: [id number] SPECIMEN CLASS: SR BILLING #: [id number] ALT ID #:LOCATION: [facility] DATE OF PROCEDURE: 12/29/2018 AGE:53 SEX: [...] in A1. (ab) ab/12/29/2018 Performing Organization Address City/[facility]/Zipcode Phone Number MAIN LAB [address] [place] [address] * THYROID STIMULATING HORMONE-TSH (11/23/2018 2:41 PM SENIOR IT SECURITY ANALYST) TSH 0.200 (L) 0.35 - 5.00 MCU/ML MAIN LAB Specimen Blood Performing Organization Address [facility]/Zipcode Phone Number MAIN LAB [address] [place] [address] * FREE T4 (FREE THYROXINE) ONLY (11/23/2018 2:41 PM SENIOR IT SECURITY ANALYST) T4-Free 0.8 0.6 - 1.6 NG/DL MAIN LAB Specimen Blood Performing Organization Address [facility] Phone Number MAIN LAB [address] [place] [address] from Last 3 Months Insurance Type Payer Benefit Subscriber ID Effective Phone Address Plan / Dates Group HMO BS [facility] xxxxxxxxxxxx 2017-P [employer] Advance Directives Patient has advance care planning documents, and code status on file. For more information, please contact: [facility] [address] [place] [address] Date Inactivated Comments Code Status Date Activated 05/27/2018 5:29 PM Full Code 05/26/2018 6:55 PM Provider has discussed Code Status No, discussion not w/Patient or Family? necessary based on Dx
--- OUTSIDE RECORDS SUMMARY | 2019-01-13 15:30 | XMS REPORT | Encounter Summary ---
Author Author [facility] Organization [facility] Address Unknown Phone Unavailable Care Team Providers Care [employer] Supervisor Name Role Phone Gopi Julian MD Unavailable Unavailable Artie Vela MD Unavailable Raysa Horton MD Unavailable Unavailable Janel Lozada MD PCP Unavailable Janel Lozada MD 100 Unavailable Reason for Visit * Reason Comments Skin Problem right side Cough congestion Encounter Details Care Team Description Date Type Department Janel Lozada MD [address] [place] [address] Hypothyroidism (acquired) (Primary Dx); Viral URI with cough; Skin lesion 11/23/2018 Office Visit [facility] [address] [address] [address] [id number] Social History Date Tobacco Use Types Packs/Day [...] Vital Signs Time Taken Vital Sign Reading 11/23/2018 1:57 PM TUBE WORKER Blood Pressure 141/86 11/23/2018 1:57 PM TUBE WORKER Pulse 72 11/23/2018 1:57 PM TUBE WORKER Temperature 37.1 C (98.8 F) 11/23/2018 1:57 PM TUBE WORKER Respiratory Rate 15 11/23/2018 1:57 PM TUBE WORKER Oxygen Saturation 95% - Inhaled Oxygen - Concentration 11/23/2018 1:57 PM TUBE WORKER Weight 90.8 kg (200 lb 1.6 oz) 11/23/2018 1:57 PM TUBE WORKER Height 157.5 cm (5' 2.01") 11/23/2018 1:57 PM TUBE WORKER Body Mass Index 36.59 documented in this encounter Functional Status Date of Assessment Functional Status Response 05/27/2018 Does the patient have a hearing impairment: No documented as of this encounter Patient Instructions * Patient Instructions* Janel Lozada MD - 11/23/2018 1:45 PM TUBE WORKER Decrease synthroid dose to 125mcg six days a week and half a tab one day a week WORKER documented in this encounter Progress Notes * Nisha Tapia MD - 11/23/2018 1:45 PM TUBE WORKER I performed a history and physical examination of the patient and discussed the management with the resident. I reviewed the resident's note and agree with the documented findings and plan of care. WORKER * Janel Lozada MD - 11/23/2018 1:45 PM TUBE WORKER Date of Service: 11/23/2018 Subjective: Brittanie Ward is a 53 y.o. female. History of Present Illness Skin lesion -right lower quadrant -has not noticed it before -had scratched it and made it bleed -is itchy sometimes Cough and congestion -for the last 3 days -with sputum production -hoarse from coughing Hypothyroidism -June labs consistent with over treatment -She did not change her dose per Endocrinology recs and is taking 125mcg QD Review of Systems Constitutional: Negative for fever. HENT: Positive for congestion. Negative for sore throat. Respiratory: Positive for cough. Gastrointestinal: Negative for diarrhea. Objective: albuterol (PROAIR HFA, VENTOLIN HFA, OR PROVENTIL HFA) 90 mcg/actuation inhaler Inhale two puffs by mouth into the lungs every 6 hours as needed. Need appt for additional refills apixaban (ELIQUIS) 5 mg tablet Take one tablet by mouth twice daily. Restart 05/29/2018 benzonatate (TESSALON) 200 mg capsule Take one capsule by mouth every 8 hours as needed for Cough. calcium citrate (CALCITRATE) 950 mg tab Please take your calcium medication taper as follows: Two (2) tabs by mouth three (3) times daily for one (1) week, then Two (2) tabs by mouth two (2) times daily for one (1) week, then Two (2) tabs by mouth one (1) time daily for one (1) week then STOP. cetirizine (ZYRTEC) 10 mg tablet Take 10 mg by mouth daily. diltiazem CD (CARTIA XT) 180 mg capsule Take one capsule by mouth daily. fluoxetine (PROZAC) 20 mg capsule Take one capsule by mouth daily. fluticasone (FLONASE) 50 mcg/actuation nasal spray Apply two sprays to each nostril as directed twice daily. fluticasone/salmeterol (ADVAIR DISKUS) 500-50 mcg inhalation disk Inhale one puff by mouth into the lungs every 12 hours. HERBAL DRUGS PO Take by mouth. Prevagen memory support ipratropium bromide (ATROVENT HFA) 17 mcg/actuation inhaler Inhale 2 puffs by mouth into the lungs daily. levothyroxine (SYNTHROID) 125 mcg tablet Take one tablet by mouth daily 30 minutes before breakfast. (Patient taking differently: Take 125 mcg by mouth daily 30 minutes before breakfast. Only 1/2 tablet one day per week) meloxicam (MOBIC) 7.5 mg tablet Take one tablet by mouth daily. metFORMIN (GLUCOPHAGE) 500 mg tablet Take 1 tablet by mouth twice daily with meals. metoprolol XL (TOPROL XL) 100 mg extended release tablet Take one tablet by mouth daily. Vitals: 11/23/18 1357 BP: 141/86 Pulse: 72 Resp: 15 Temp: 37.1 C (98.8 F) TempSrc: Oral SpO2: 95% Weight: 90.8 kg (200 lb 1.6 oz) Height: 157.5 cm (62.01") Body mass index is 36.59 kg/m. Physical Exam Constitutional: She appears well-developed. No distress. HENT: Mouth/Throat: Oropharynx is clear and moist. No oropharyngeal exudate. Cardiovascular: Normal rate, regular rhythm and normal heart sounds. Pulmonary/Chest: Effort normal and breath sounds normal. No respiratory distress. Skin: RLQ skin lesion with asymmetrical borders, varied in color Surrounding seborrheic keratosis are flesh colored Psychiatric: She has a normal mood and affect. Assessment and Plan: Brittanie Ward was seen today for skin problem and cough. Diagnoses and all orders for this visit: Hypothyroidism (acquired) - THYROID STIMULATING HORMONE-TSH; Future; Expected date: 11/23/2018 - FREE T4 (FREE THYROXINE) ONLY; Future; Expected date: 11/23/2018 - Synthroid 125mcg for 6 days and a half tab on the 7th. Expect abnormal lab. Will repeat in 6-8 weeks with new dosing Viral URI with cough - Today is day 3 of illness. Discussed natural course. Expect cough to linger for 2 weeks. Precautions for superinfection given - Mucinex in the day and tessalon at night. Continue supportive care. - benzonatate (TESSALON) 200 mg capsule; Take one capsule by mouth every 8 hours as needed for Cough. Skin Lesion - Seborrheic vs actinic. Seen with Dr. Tapia. Recommend freezing and scraping the lesion. Scheduled for my clinic for procedure. 12/10/2018 4:00 PM Janel Lozada MD [facility] Janel Lozada MD Family Medicine PGY-3 Pager [phone] WORKER documented in this encounter Plan of Treatment Order Schedule Name Priority Associated Diagnoses Expected: 12/28/2018 (Approximate), Expires: 11/24/2019 THYROID STIMULATING HORMONE-TSH Routine Hypothyroidism (acquired) Expected: 12/28/2018, Expires: 11/24/2019 FREE T4 (FREE THYROXINE) ONLY Routine Hypothyroidism (acquired) documented as of this encounter Results * FREE T4 (FREE THYROXINE) ONLY (11/23/2018 2:41 PM TUBE WORKER) T4-Free 0.8 0.6 - 1.6 NG/DL MAIN LAB Specimen Blood Performing Organization Address City/State/Zipcode Phone Number MAIN LAB [address] [place] [address] * THYROID STIMULATING HORMONE-TSH (11/23/2018 2:41 PM TUBE WORKER) TSH 0.200 (L) 0.35 - 5.00 [facility] [place] [facility] Specimen Blood Performing Organization Address City/State/Zipcode Phone Number MAIN LAB [address] [place] [address] documented in this encounter Visit Diagnoses Diagnosis Hypothyroidism (acquired) - Primary Unspecified hypothyroidism Viral URI with cough Acute upper respiratory infections of unspecified site Skin lesion Unspecified disorder of skin and subcutaneous tissue documented in this encounter
--- OUTSIDE RECORDS SUMMARY | 2019-01-13 15:30 | XMS REPORT | Encounter Summary ---
Author Author [facility] Organization [facility] Address Unknown Phone Unavailable Care Team Providers Care Arts Manager Name Role Phone Gopi Julian MD Unavailable Unavailable Artie Vela MD Unavailable Raysa oHrton MD Unavailable Unavailable Janel Lozada MD PCP Unavailable Janel Lozada MD 100 Unavailable Encounter Details Care Team Description Date Type Department Janel Lozada MD [address] [place] [address] 11/23/2018 Hospital [facility] En[facility] [address] [address] Social History Date Tobacco Use Types Packs/Day [...] Routine 11/23/2018 Hypothyroidism (acquired) HORMONE-TSH 2:41 PM PROPOSAL WRITER FREE T4 (FREE THYROXINE) Routine 11/23/2018 Hypothyroidism (acquired) ONLY 2:41 PM PROPOSAL WRITER documented in this encounter Results * FREE T4 (FREE THYROXINE) ONLY (11/23/2018 2:41 PM PROPOSAL WRITER) T4-Free 0.8 0.6 - 1.6 NG/DL [facility] Specimen Blood Performing Organization Address [facility] Phone [facility] [address] [place] [address] * THYROID STIMULATING HORMONE-TSH (11/23/2018 2:41 PM PROPOSAL WRITER) TSH 0.200 (L) 0.35 - 5.00 [facility] MAIN [facility] Specimen Blood Performing Organization Address City/[facility] Phone Number [facility] [address] [place] [address] documented in this encounter Visit Diagnoses Diagnosis Hypothyroidism (acquired) Unspecified hypothyroidism Post-operative hypothyroidism Postsurgical hypothyroidism documented in this encounter
--- NOTE | 2019-01-13 15:39 | NUR ---
SPOKE WITH THE PATIENT ABOUT HER MEDICATIONS. WE WENT OVER THE EXT MED HX AND SHE VERIFIED HOW SHE TAKES THEM. SHE TAKES ALL OF HER MEDICATIONS AT NIGHT EXCEPT FOR THE LEVOTHYROXINE BECAUSE SHE WAS TOLD TO SEPARATE HER OTHER MEDS FROM THE THYROID MED. BECAUSE OF THIS SHE DOES NOT TAKE SOME OF THE HOW THEY ARE PRESCRIBED. 01-11-19 ELIQUIS 5MG #60 FOR 30 DAYS (ONLY TAKES 1 AT HS) 01-05-19 PREDNISONE 20MG #20 FOR 12 DAYS (HOWEVER SHE STATES SHE FINISHED 2 DAYS AGO) 01-03-19 ADVAIR 500/50 (1 PUFF HS ONLY) SHE IS PAST DUE FOR REFILL ON THE FOLLOWING MEDICATIONS: 11-02-17 CARTIA 180MG HS #30 (THINKS SHE RAN OUT AND FORGOT TO GET IT REFILLED) 09-09-18 SINGULAIR 10MG HS #30 09-09-18 ATROVENT #1 (STATES SHE ONLY USES 1 PUFF HS) 09-09-18 QVAR #1 (STATES SHE ONLY USES 2 PUFFS HS) 04-28-18 METHIMAZOLE 10MG HS #30 (STATES SHE THINKS ONE WAS STOPPED BY ) [address] SANTIAGO'S OFFICE FOR A CURRENT LIST AND TO CLARIFY IF THE CARTIA OR METHIMAZOLE WAS DISCONTINUED, PATIENT COULD NOT REMEMBER WHICH. THEY STATE THEY HAVE NOT SEEN HER SINCE FEBRUARY 2018 AND SO HER LIST WOULD NOT BE UP TO DATE. I CALLED THE AT WHO HAS PRESCRIBED SEVERAL OF HER OTHER MEDICATIONS BUT HAD TO LEAVE A MESSAGE. I LEFT THE CARTIA ON THE MED REC AND NOTED THE PAST DUE FILL DATE AND REMOVED THE METHIMAZOLE SINCE IT IS SIGNIFICANTLY OVERDUE FOR REFILL. SHE TAKES ZYRTEC DAILY OTC
--- OUTSIDE RECORDS SUMMARY | 2019-01-13 15:50 | XMS REPORT | Continuity of Care Document ---
[...] mg tablet Drug Allergy N/A N/A 11/03/2014 Yes Penicillins [id number] Drug Allergy Unknown N/A 01/13/2019 Yes Sulfa (Sulfonamide Antibiotics) [id number] Drug Allergy Unknown N/A 2018 Medications There is no data. Problems Date [...] Unspecified Essential Hypertension 05/17/2010 SANTO BAIRD MD 461.8 Other Acute Sinusitis 05/17/2010 SANTO BAIRD MD 493.90 ASTHMA 05/17/2010 CHARITY EDGAR MD, SANTO A 692.9 Contact Dermatitis And Other Eczema, Unspecified Cause 05/17/2010 CHARITY EDGAR MD, SANTO A 845.00 Sprains And Strains Of Ankle, Unspecified [...] And Strains Of Ankle, Unspecified Site 05/17/2010 NILAM DOVER APRN R 401.9 Unspecified Essential Hypertension 05/17/2010 NILAM DOVER APRN R 461.8 Other Acute Sinusitis 05/17/2010 NILAM DOVER APRN R 493.90 ASTHMA 05/17/2010 NILAM DOVER APRN R 692.9 Contact Dermatitis And Other Eczema, Unspecified Cause 05/17/2010 NILAM DOVER APRN R 845.00 Sprains And Strains Of [...] And Strains Of Ankle, Unspecified Site 05/17/2010 NILAM DOVER APRN R 401.9 Unspecified Essential Hypertension 05/17/2010 NILAM DOVER APRN R 461.8 Other Acute Sinusitis 05/17/2010 NILAM DOVER APRN 493.90 ASTHMA 05/17/2010 DOVERNILAM DEL CID APRN 692.9 Contact Dermatitis And Other Eczema, Unspecified Cause 05/17/2010 NILAM DOVER APRN 845.00 Sprains And Strains Of Ankle, Unspecified Site 05/17/2010 KRAMER DO KEVIN K 401.9 Unspecified Essential Hypertension 05/17/2010 KRAMER DO, KEVIN K 461.8 Other Acute Sinusitis 05/17/2010 KRAMER DO, KEVIN K 493.90 ASTHMA 05/17/2010 KRAMER DO, KEVIN K 692.9 Contact Dermatitis And Other Eczema, Unspecified Cause 05/17/2010 KRAMER DO KEVIN K 845.00 Sprains And Strains Of [...] Routine Gynecological Examination 05/28/2010 DOMINGO FLORENCE APRN 626.1 Scanty Or Infrequent Menstruation 05/28/2010 DOMINGO FLORENCE APRN V72.31 Routine Gynecological Examination 05/28/2010 SANTO BAIRD MD 626.1 Scanty Or Infrequent Menstruation 05/28/2010 SANTO BAIRD MD V72.31 Routine Gynecological Examination 05/28/2010 626.1 Scanty Or Infrequent Menstruation 05/28/2010 V72.31 Routine Gynecological Examination 05/28/2010 626.1 Scanty Or Infrequent Menstruation 05/28/2010 V72.31 Routine Gynecological Examination 05/28/2010 626.1 Scanty Or Infrequent Menstruation 05/28/2010 V72.31 Routine Gynecological Examination 05/28/2010 KEVIN KRAMER DO K 626.1 Scanty Or Infrequent Menstruation 05/28/2010 KRAMER DO KEVIN K V72.31 Routine Gynecological Examination 05/28/2010 KRAMER DO KEVIN K 626.1 Scanty Or Infrequent Menstruation 05/28/2010 KRAMER DO KEVIN K V72.31 Routine Gynecological Examination 05/28/2010 KRAMER DO, KEVIN K 626.1 Scanty Or Infrequent Menstruation 05/28/2010 KRAMER DO, KEVIN K V72.31 Routine Gynecological Examination 05/28/2010 626.1 Scanty Or Infrequent Menstruation 05/28/2010 V72.31 Routine Gynecological Examination 05/28/2010 NILAM DOVER APRN 626.1 Scanty Or Infrequent Menstruation 05/28/2010 NILAM DOVER APRN V72.31 Routine Gynecological Examination 05/28/2010 KRAMER DOKEVIN K 626.1 Scanty Or Infrequent Menstruation 05/28/2010 KRAMER DO KEVIN K V72.31 Routine Gynecological Examination 05/28/2010 KRAMER DOALICIAA K 626.1 Scanty Or Infrequent Menstruation 05/28/2010 KRAMER DOALICIAA K V72.31 Routine Gynecological Examination 05/28/2010 NILAM DOVER APRN 626.1 Scanty Or Infrequent Menstruation 05/28/2010 NILAM DOVER APRN V72.31 Routine Gynecological Examination 05/28/2010 WILLIAMS DOKEVIN K 626.1 Scanty Or Infrequent Menstruation 05/28/2010 ALICIA KRAMER DOA K V72.31 Routine Gynecological Examination 05/28/2010 JR CASAS APRN 626.1 Scanty Or Infrequent Menstruation 05/28/2010 JR CASAS APRN V72.31 Routine Gynecological Examination 05/31/2010 472.0 Chronic Rhinitis 05/31/2010 DOMINGO FLORENCE APRN 472.0 Chronic Rhinitis 05/31/2010 CHARITY EDGAR MD, SANTO [place] 472.0 Chronic Rhinitis 05/31/2010 472.0 Chronic Rhinitis 05/31/2010 472.0 Chronic Rhinitis 05/31/2010 472.0 Chronic Rhinitis 05/31/2010 ALICIA KRAMER DOA K 472.0 Chronic Rhinitis 05/31/2010 KRAMER DO KEVIN K 472.0 Chronic Rhinitis 05/31/2010 KEVIN KRAMER DO 472.0 Chronic Rhinitis 05/31/2010 472.0 Chronic Rhinitis 05/31/2010 NILAM DOVER APRN 472.0 Chronic Rhinitis 05/31/2010 KEVIN KRAMER DO 472.0 Chronic Rhinitis 05/31/2010 KEVIN KRAMER DO 472.0 Chronic Rhinitis 05/31/2010 DOVERNILAM DEL CID APRN 472.0 Chronic Rhinitis 05/31/2010 KEVIN KRAMER DO 472.0 Chronic Rhinitis 05/31/2010 JR CASAS APRN 472.0 Chronic Rhinitis 06/04/2010 242.90 HYPERTHYROIDISM 06/04/2010 782.1 Skin: A Rash [ as Sx] 06/04/2010 790.29 PREDIABETES ( IMPAIRED GLUCOSE TOLERANCE) 06/04/2010 DOMINGO FLORENCE APRN R 242.90 HYPERTHYROIDISM 06/04/2010 DOMINGO FLORENCE APRN R 782.1 Skin: A Rash [as Sx] 06/04/2010 DOMINGO FLORENCE APRN R 790.29 PREDIABETES (IMPAIRED GLUCOSE TOLERANCE) 06/04/2010 SANTO BAIRD MD 242.90 HYPERTHYROIDISM 06/04/2010 SANTO BAIRD MD 782.1 Skin: A Rash [as Sx] 06/04/2010 [...] IMPAIRED GLUCOSE TOLERANCE) 06/04/2010 KEVIN KRAMER DO 242.90 HYPERTHYROIDISM 06/04/2010 KEVIN KRAMER DO 782.1 Skin: A Rash [as Sx] 06/04/2010 KEVIN KRAMER DO 790.29 PREDIABETES (IMPAIRED GLUCOSE TOLERANCE) 06/04/2010 ALICIA KRAMER DOA K 242.90 HYPERTHYROIDISM 06/04/2010 ALICIA KRAMER DOA K 782.1 Skin: A Rash [as Sx] 06/04/2010 KEVIN KRAMER DO K 790.29 PREDIABETES (IMPAIRED GLUCOSE TOLERANCE) 06/04/2010 ALICIA KRAMER DOA K 242.90 HYPERTHYROIDISM 06/04/2010 ALICIA KRAMER DOA K 782.1 Skin: A Rash [as Sx] [...] 782.1 Skin: A Rash [as Sx] 06/04/2010 JR CASAS APRN 790.29 PREDIABETES (IMPAIRED GLUCOSE TOLERANCE) 07/02/2010 471.9 [...] ( current) Use Of Other Medications 07/02/2010 KEVIN KRAMER DO K 471.9 UNSPECIFIED NASAL POLYP 07/02/2010 ALICIA KRAMER DOA K V58.69 Long-term (current) Use Of Other Medications 07/02/2010 ALICIA KRAMER DOA K 471.9 UNSPECIFIED NASAL POLYP 07/02/2010 ALICIA KRAMER DOA K V58.69 Long-term (current) Use Of Other Medications 07/02/2010 KRAMER ALICIA [...] Asthma Extrinsic - With Acute Exacerbation 08/22/2010 ALICIA KRAMER DOA Sonia 493.02 Asthma Extrinsic - With Acute Exacerbation 08/22/2010 493.02 Asthma Extrinsic - With Acute Exacerbation 08/22/2010 NILAM DOVER APRN 493.02 Asthma Extrinsic - With Acute Exacerbation 08/22/2010 KEVIN KRAMER DO 493.02 Asthma Extrinsic - With Acute Exacerbation 08/22/2010 ALICIA KRAMER DOA K 493.02 Asthma Extrinsic - With Acute Exacerbation 08/22/2010 NILAM DOVER APRN 493.02 Asthma Extrinsic - With Acute Exacerbation 08/22/2010 KRAMER DO, KEVIN K 493.02 Asthma Extrinsic - With Acute Exacerbation 08/22/2010 JR CASAS APRN 493.02 Asthma Extrinsic - With Acute Exacerbation 10/21/2010 461.9 Sinusitis Acute 10/21/2010 465.9 Upper Respiratory Infection 10/21/2010 786.2 Cough 10/21/2010 NAMAN MÁRQUEZN, DOMINGO R 461.9 Sinusitis Acute 10/21/2010 NAMAN MÁRQUEZN, DOMINGO R 465.9 Upper Respiratory Infection 10/21/2010 NAMAN NORRIS, DOMINGO R 786.2 Cough 10/21/2010 CHARITY EDGAR [...] DO, KEVIN K 461.9 Sinusitis Acute 10/21/2010 KRAEMR DO, KEVIN K 465.9 Upper Respiratory Infection 10/21/2010 KRAMER DO, KEVIN K 786.2 Cough 10/21/2010 461.9 Sinusitis Acute 10/21/2010 465.9 Upper Respiratory Infection 10/21/2010 786.2 Cough 10/21/2010 NILAM DOVER APRN 461.9 Sinusitis Acute 10/21/2010 NILAM DOVER APRN 465.9 Upper Respiratory Infection 10/21/2010 NILAM DOVER APRN 786.2 Cough 10/21/2010 KRAMER DO, KEVIN K 461.9 Sinusitis Acute 10/21/2010 KRAMER DO, KEVIN K 465.9 Upper Respiratory Infection 10/21/2010 KRAMER DO, KEVIN K 786.2 Cough 10/21/2010 KRAMER DO, KEVIN K 461.9 Sinusitis Acute 10/21/2010 KRAMER DO, KEVIN K 465.9 Upper Respiratory Infection 10/21/2010 KRAMER DO, KEVIN K 786.2 Cough 10/21/2010 NILAM DOVER APRN 461.9 Sinusitis Acute 10/21/2010 DOVERNILAM DEL CID APRN R 465.9 Upper Respiratory Infection 10/21/2010 NILAM DOVER [...] 01/08/2011 DOMINGO FLORENCE APRN 780.79 Fatigue 01/08/2011 CHARITY EDGAR MD, SANTO [place] 780.79 Fatigue 01/08/2011 780.79 Fatigue 01/08/2011 780.79 Fatigue 01/08/2011 780.79 Fatigue 01/08/2011 KRAMER DO KEVIN K 780.79 Fatigue 01/08/2011 KRAMER DO, KEVIN K 780.79 Fatigue 01/08/2011 KRAMER DO, KEVIN K 780.79 Fatigue 01/08/2011 780.79 Fatigue 01/08/2011 NILAM DOVER APRN 780.79 Fatigue 01/08/2011 KRAMER DO, KEVIN K 780.79 Fatigue 01/08/2011 KRAMER DO, KEVIN K 780.79 Fatigue 01/08/2011 NILAM DOVER APRN 780.79 Fatigue 01/08/2011 KRAMER DO, KEVIN K 780.79 Fatigue 01/08/2011 JR CASAS APRN 780.79 Fatigue 03/14/2011 789.04 Abdominal Pain Left Lower Quadrant 03/14/2011 DOMINGO FLORENCE APRN 789.04 Abdominal Pain Left Lower Quadrant 03/14/2011 CHARITY EDGAR MD, SANTO A 789.04 Abdominal Pain Left Lower Quadrant 03/14/2011 [...] Abdominal Pain Left Lower Quadrant 03/14/2011 KRAMER DO KEVIN K 789.04 Abdominal Pain Left Lower [...] Acute Exacerbation 04/16/2011 CHARITY EDGAR MD, SANTO A 491.21 Chronic Bronchitis - With Acute Exacerbation 04/16/2011 491.21 Chronic Bronchitis - With Acute Exacerbation 04/16/2011 491.21 Chronic Bronchitis - With Acute Exacerbation 04/16/2011 491.21 Chronic Bronchitis - With Acute Exacerbation 04/16/2011 ALICIA KRAMER DOA K 491.21 Chronic Bronchitis - With Acute Exacerbation 04/16/2011 ALICIA KRAMER DOA K 491.21 Chronic Bronchitis - With Acute Exacerbation [...] DOMINGO FLORENCE APRN R 723.1 Cervicalgia 05/12/2011 ERASMO FLORENCE APRNIA R 780.52 Insomnia Unspecified 05/12/2011 DOMINGO FLORENCE APRN R 787.20 Dysphagia, Unspecified 05/12/2011 CHARITY EDGAR MD, SANTO A 240.9 NONTOXIC GOITER DIFFUSE 05/12/2011 SANTO BAIRD MD 723.1 Cervicalgia 05/12/2011 SANTO BAIRD MD 780.52 Insomnia Unspecified 05/12/2011 SANTO BAIRD MD 787.20 Dysphagia, Unspecified 05/12/2011 240.9 NONTOXIC GOITER DIFFUSE 05/12/2011 723.1 Cervicalgia 05/12/2011 780.52 Insomnia Unspecified 05/12/2011 787.20 Dysphagia, Unspecified 05/12/2011 240.9 NONTOXIC GOITER DIFFUSE 05/12/2011 723.1 Cervicalgia 05/12/2011 780.52 Insomnia Unspecified 05/12/2011 787.20 Dysphagia, Unspecified 05/12/2011 240.9 NONTOXIC GOITER DIFFUSE 05/12/2011 723.1 Cervicalgia 05/12/2011 780.52 Insomnia Unspecified 05/12/2011 787.20 Dysphagia, Unspecified 05/12/2011 KRAMER DO, KEVIN [...] DO, KEVIN K 787.20 Dysphagia, Unspecified 05/12/2011 DOVERNILAM DEL CID APRN 240.9 NONTOXIC GOITER DIFFUSE 05/12/2011 NILAM DOVER APRN 723.1 Cervicalgia 05/12/2011 DOVERNILAM DEL CID APRN 780.52 Insomnia Unspecified 05/12/2011 DOVERNILAM DEL CID APRN 787.20 Dysphagia, Unspecified 05/12/2011 KRAMER DOALICIAA K 240.9 NONTOXIC GOITER DIFFUSE 05/12/2011 KRAMER DOALICIAA K 723.1 Cervicalgia 05/12/2011 KRAMER DOALICIAA K 780.52 Insomnia Unspecified 05/12/2011 ALICIA KRAMER DOA K 787.20 Dysphagia, Unspecified 05/12/2011 JR CASAS APRN 240.9 NONTOXIC GOITER DIFFUSE 05/12/2011 JR CASAS APRN 723.1 Cervicalgia 05/12/2011 JR CASAS APRN 780.52 Insomnia Unspecified 05/12/2011 JR CASAS APRN 787.20 Dysphagia, Unspecified 05/14/2011 785.1 Palpitations 05/14/2011 DOMINGO FLORENCE APRN 785.1 Palpitations 05/14/2011 CHARITY EDGAR MD, SANTO A 785.1 Palpitations 05/14/2011 785.1 Palpitations 05/14/2011 785.1 Palpitations 05/14/2011 785.1 Palpitations 05/14/2011 KRAMER KEVIN SALVADOR K 785.1 Palpitations 05/14/2011 KEVIN KRAMER DO K 785.1 Palpitations 05/14/2011 KRAMER DO, KEVIN K 785.1 Palpitations 05/14/2011 785.1 Palpitations 05/14/2011 DOVERNILAM DEL CID APRN 785.1 Palpitations 05/14/2011 KRAMER , KEVIN K 785.1 Palpitations 05/14/2011 KRAMER ALICIA SALVADORA K 785.1 Palpitations 05/14/2011 DOVERNILAM DEL CID APRN 785.1 Palpitations 05/14/2011 KRAMER DOALICIAA K 785.1 Palpitations 05/14/2011 CASASJR CUELLAR APRN 785.1 Palpitations 08/07/2011 414.01 CORONARY ATHEROSCLEROSIS OF [place] CORONARY ARTERY 08/07/2011 DOMINGO FLORNECE APRN 414.01 CORONARY ATHEROSCLEROSIS OF [place] CORONARY ARTERY 08/07/2011 CHARITY EDGAR MD, SANTO A 414.01 CORONARY ATHEROSCLEROSIS OF [place] CORONARY ARTERY 08/07/2011 414.01 CORONARY ATHEROSCLEROSIS OF [place] CORONARY ARTERY 08/07/2011 414.01 CORONARY ATHEROSCLEROSIS OF [place] CORONARY ARTERY 08/07/2011 414.01 CORONARY ATHEROSCLEROSIS OF [place] CORONARY ARTERY 08/07/2011 KRAMER DO, KEVIN K 414.01 CORONARY ATHEROSCLEROSIS OF [place] CORONARY ARTERY 08/07/2011 KRAMER DO, KEVIN K 414.01 CORONARY ATHEROSCLEROSIS OF [place] CORONARY ARTERY 08/07/2011 KRAMER DO, KEVIN K 414.01 CORONARY ATHEROSCLEROSIS OF [place] CORONARY ARTERY 08/07/2011 414.01 CORONARY ATHEROSCLEROSIS OF [place] CORONARY ARTERY 08/07/2011 NILAM DOVER APRN 414.01 CORONARY ATHEROSCLEROSIS OF [place] CORONARY ARTERY 08/07/2011 KRAMER DO KEVIN K 414.01 CORONARY ATHEROSCLEROSIS OF [place] CORONARY ARTERY 08/07/2011 KRAMER DO KEVIN K 414.01 CORONARY ATHEROSCLEROSIS OF [place] CORONARY ARTERY 08/07/2011 NILAM DOVER APRN 414.01 CORONARY ATHEROSCLEROSIS OF [place] CORONARY ARTERY 08/07/2011 KRAMER ALICIA SALVADORA K 414.01 CORONARY ATHEROSCLEROSIS OF [place] CORONARY ARTERY 08/07/2011 JR CASAS APRN 414.01 CORONARY ATHEROSCLEROSIS OF [place] CORONARY ARTERY 09/08/2011 382.00 Otitis Media Acute Suppurative 09/08/2011 477.0 ALLERGIC RHINITIS - POLLEN 09/08/2011 493.92 Asthma With Acute Exacerbation 09/08/2011 DOMINGO FLORENCE APRN R 382.00 Otitis Media Acute Suppurative 09/08/2011 ERASMO FLORENCE APRNIA R 477.0 ALLERGIC RHINITIS - POLLEN 09/08/2011 DOMINGO FLORENCE APRN R 493.92 Asthma With Acute Exacerbation 09/08/2011 SANTO BAIRD MD A 382.00 Otitis Media Acute Suppurative 09/08/2011 SANTO BAIRD MD A 477.0 ALLERGIC RHINITIS - POLLEN 09/08/2011 SANTO BAIRD MD A 493.92 Asthma With Acute Exacerbation 09/08/2011 382.00 [...] 09/08/2011 493.92 Asthma With Acute Exacerbation 09/08/2011 NILAM DOVER APRN R 382.00 Otitis Media Acute Suppurative 09/08/2011 DOVERNILAM DEL CID APRN R 477.0 ALLERGIC RHINITIS - POLLEN 09/08/2011 NILAM DOVER APRN R 493.92 Asthma With Acute Exacerbation [...] K 493.92 Asthma With Acute Exacerbation 09/08/2011 NILAM DOVER APRN R 382.00 Otitis Media Acute Suppurative 09/08/2011 NILAM DOVER APRN R 477.0 ALLERGIC RHINITIS - POLLEN 09/08/2011 NILAM DOVER APRN 493.92 Asthma With Acute Exacerbation 09/08/2011 KRAMER DO KEVIN K 382.00 Otitis Media Acute Suppurative 09/08/2011 KRAMER DO, KEVIN K 477.0 ALLERGIC RHINITIS - POLLEN 09/08/2011 WILLIAMS SALVADOR KEVIN K 493.92 Asthma With Acute Exacerbation 09/08/2011 JR CASAS APRN 382.00 Otitis Media Acute Suppurative 09/08/2011 JR CASAS APRN 477.0 ALLERGIC RHINITIS - POLLEN 09/08/2011 JR CASAS APRN 493.92 Asthma With Acute Exacerbation 10/27/2011 300.00 anxiety 10/27/2011 781.0 Involuntary Movements [sx] 10/27/2011 DOMINGO FLORENCE APRN 300.00 anxiety 10/27/2011 DOMINGO FLORENCE APRN 781.0 Involuntary Movements [sx] 10/27/2011 SANTO BAIRD MD 300.00 anxiety 10/27/2011 SANTO BAIRD MD 781.0 Involuntary Movements [sx] 10/27/2011 300.00 anxiety 10/27/2011 781.0 Involuntary Movements [sx] 10/27/2011 300.00 anxiety 10/27/2011 781.0 Involuntary Movements [sx] 10/27/2011 300.00 anxiety 10/27/2011 781.0 Involuntary Movements [sx] 10/27/2011 WILLIAMS DO KEVIN K 300.00 anxiety 10/27/2011 KRAMER DO, [...] APRN 781.0 Involuntary Movements [sx] 10/27/2011 KRAMER DO, KEVIN K 300.00 anxiety 10/27/2011 KRAMER DO, KEVIN K 781.0 Involuntary Movements [sx] 10/27/2011 KRAMER DO, KEVIN K 300.00 anxiety 10/27/2011 KRAMER DO, KEVIN K 781.0 Involuntary Movements [sx] 10/27/2011 NILAM DOVER APRN 300.00 anxiety 10/27/2011 NILAM DOVER APRN 781.0 Involuntary Movements [sx] 10/27/2011 KRAMER DO, KEVIN K 300.00 anxiety 10/27/2011 KRAMER DO, KEVIN K 781.0 Involuntary Movements [sx] 10/27/2011 JR [...] 01/08/2012 729.1 muscle aches, generalized (myalgias) 01/08/2012 KRAMER DOALICIAA K 729.1 muscle aches, generalized (myalgias) 01/08/2012 WILLIAMS DOALICIAA K 729.1 muscle aches, generalized (myalgias) 01/08/2012 KRAMER DO KEVIN K 729.1 muscle aches, generalized (myalgias) 01/08/2012 729.1 muscle aches, generalized (myalgias) 01/08/2012 NILAM DOVER APRN 729.1 muscle aches, generalized (myalgias) 01/08/2012 KEVIN KRAMER DO 729.1 muscle aches, generalized (myalgias) 01/08/2012 KEVIN KRAMER DO 729.1 muscle aches, generalized (myalgias) 01/08/2012 NILAM DOVER APRN 729.1 muscle aches, generalized (myalgias) 01/08/2012 KEVIN KRAMER DO 729.1 muscle aches, generalized (myalgias) 01/08/2012 JR CASAS APRN 729.1 muscle aches, generalized (myalgias) 01/19/2012 782.3 soft tissue swelling (non-joint) [Sx] 01/19/2012 DOMINGO FLORENCE APRN 782.3 soft tissue swelling (non-joint) [Sx] 01/19/2012 CHARITY EDGAR MD, SANTO [place] 782.3 soft tissue swelling (non-joint) [Sx] 01/19/2012 [...] OTHER GENERAL SYMPTOMS 02/10/2012 SANTO BAIRD MD A 780.99 OTHER GENERAL SYMPTOMS 02/10/2012 780.99 OTHER GENERAL SYMPTOMS 02/10/2012 780.99 OTHER GENERAL SYMPTOMS 02/10/2012 780.99 OTHER GENERAL SYMPTOMS 02/10/2012 KRAMER DO, KEVIN K 780.99 OTHER GENERAL SYMPTOMS 02/10/2012 KRAMER DO, KEVIN K 780.99 OTHER GENERAL SYMPTOMS 02/10/2012 KRAMER DO, KEVIN K 780.99 OTHER GENERAL SYMPTOMS 02/10/2012 780.99 OTHER GENERAL SYMPTOMS 02/10/2012 DOVERNILAM DEL CID APRN 780.99 OTHER GENERAL SYMPTOMS 02/10/2012 KRAMER DO, KEVIN K 780.99 OTHER GENERAL SYMPTOMS 02/10/2012 KRAMER DO, KEVIN K 780.99 OTHER GENERAL SYMPTOMS 02/10/2012 NILAM DOVER APRN 780.99 OTHER GENERAL SYMPTOMS 02/10/2012 KRAMER DO, KEVIN K 780.99 OTHER GENERAL SYMPTOMS 02/10/2012 JR CASAS APRN 780.99 OTHER GENERAL SYMPTOMS 02/24/2012 461.9 Sinusitis Acute 02/24/2012 493.92 ASTHMA WITH ACUTE EXACERBATION 02/24/2012 DOMINGO FLORENCE APRN R 461.9 Sinusitis Acute 02/24/2012 DOMINGO FLORENCE APRN R 493.92 ASTHMA WITH ACUTE EXACERBATION 02/24/2012 SANTO BAIRD MD A 461.9 Sinusitis Acute 02/24/2012 SANTO BAIRD MD A 493.92 ASTHMA WITH ACUTE EXACERBATION 02/24/2012 461.9 Sinusitis Acute 02/24/2012 493.92 ASTHMA WITH ACUTE EXACERBATION 02/24/2012 461.9 Sinusitis Acute 02/24/2012 493.92 ASTHMA WITH ACUTE EXACERBATION 02/24/2012 461.9 Sinusitis Acute 02/24/2012 493.92 ASTHMA WITH ACUTE EXACERBATION 02/24/2012 KRAMER DO, KEVIN K 461.9 Sinusitis Acute 02/24/2012 KRAMER DO, KEVIN K 493.92 ASTHMA WITH ACUTE EXACERBATION 02/24/2012 KRAMER DO, KEVIN K 461.9 Sinusitis Acute 02/24/2012 KRAMER DO, KEVIN K 493.92 ASTHMA WITH ACUTE EXACERBATION 02/24/2012 KRAMER DO, KEVIN K 461.9 Sinusitis Acute 02/24/2012 KEVIN KRAMER DO 493.92 ASTHMA WITH ACUTE EXACERBATION 02/24/2012 461.9 Sinusitis Acute 02/24/2012 493.92 ASTHMA WITH ACUTE EXACERBATION 02/24/2012 NILAM DOVER APRN 461.9 Sinusitis Acute 02/24/2012 NILAM DOVER APRN 493.92 ASTHMA WITH ACUTE EXACERBATION 02/24/2012 KRAMER KEVIN SALVADOR 461.9 Sinusitis Acute 02/24/2012 KEVIN KRAMER DO 493.92 ASTHMA WITH ACUTE EXACERBATION 02/24/2012 KEVIN KRAMER DO K 461.9 Sinusitis Acute 02/24/2012 KRAMER KEVIN SALVADOR K 493.92 ASTHMA WITH ACUTE EXACERBATION 02/24/2012 NILAM DOVER APRN 461.9 Sinusitis Acute 02/24/2012 NILAM DOVER APRN 493.92 ASTHMA WITH ACUTE EXACERBATION 02/24/2012 KEVIN KRAMER DO 461.9 Sinusitis Acute 02/24/2012 KEVIN KRAMER DO 493.92 ASTHMA WITH ACUTE EXACERBATION 02/24/2012 JR [...] 03/03/2012 496 CHRONIC OBSTRUCTIVE PULMONARY DISEASE 03/03/2012 KEVIN KRAMER DO 496 CHRONIC OBSTRUCTIVE PULMONARY DISEASE 03/03/2012 KEVIN KRAMER DO 496 CHRONIC OBSTRUCTIVE PULMONARY DISEASE 03/03/2012 KRAMER ALICIA SALVADORA K 496 CHRONIC OBSTRUCTIVE PULMONARY DISEASE 03/03/2012 496 CHRONIC OBSTRUCTIVE PULMONARY DISEASE 03/03/2012 NILAM DOVER APRN 496 CHRONIC OBSTRUCTIVE PULMONARY DISEASE 03/03/2012 KRAMER KEVIN SALVADOR 496 CHRONIC OBSTRUCTIVE PULMONARY DISEASE 03/03/2012 ALICIA KRAMER DOA K 496 CHRONIC OBSTRUCTIVE PULMONARY DISEASE 03/03/2012 NILAM DOVER APRN 496 CHRONIC OBSTRUCTIVE PULMONARY DISEASE 03/03/2012 KEVIN KRAMER DO 496 CHRONIC OBSTRUCTIVE PULMONARY DISEASE 03/03/2012 AUGUSTO MÁRQUEZNJR 496 CHRONIC OBSTRUCTIVE PULMONARY DISEASE 03/15/2012 785.1 palpitations 03/15/2012 787.20 difficulty swallowing (dysphagia) 03/15/2012 DOMINGO FLORENCE APRN R 785.1 palpitations 03/15/2012 DOMINGO FLORENCE APRN R 787.20 difficulty swallowing (dysphagia) 03/15/2012 SANTO BAIRD MD A 785.1 palpitations 03/15/2012 SANTO BAIRD MD A 787.20 difficulty swallowing (dysphagia) 03/15/2012 785.1 palpitations 03/15/2012 787.20 difficulty swallowing (dysphagia) 03/15/2012 785.1 palpitations 03/15/2012 787.20 difficulty swallowing (dysphagia) 03/15/2012 785.1 palpitations 03/15/2012 787.20 difficulty swallowing (dysphagia) 03/15/2012 ALICIA KRAMER DOA K 785.1 palpitations 03/15/2012 ALICIA KRAMER DOA K 787.20 difficulty swallowing (dysphagia) 03/15/2012 WILLIAMS DO, KEVIN K 785.1 palpitations 03/15/2012 KRAMER DO, KEVIN K 787.20 difficulty swallowing (dysphagia) 03/15/2012 KRAMER DO, KEVIN K 785.1 palpitations 03/15/2012 KRAMER DO, KEVIN K 787.20 difficulty swallowing (dysphagia) 03/15/2012 785.1 palpitations 03/15/2012 787.20 difficulty swallowing (dysphagia) 03/15/2012 NILAM DOVER APRN R 785.1 palpitations 03/15/2012 NILAM DOVER APRN 787.20 difficulty swallowing (dysphagia) 03/15/2012 WILLIAMS DO KEVIN K 785.1 palpitations 03/15/2012 KRAMER DO, KEVIN K 787.20 difficulty swallowing (dysphagia) 03/15/2012 WILLIAMS SALVADOR KEVIN K 785.1 palpitations 03/15/2012 WILLIAMS SALVADOR KEVIN K 787.20 difficulty swallowing (dysphagia) 03/15/2012 NILAM DOVER APRN 785.1 palpitations 03/15/2012 NILAM DOVER APRN 787.20 difficulty swallowing (dysphagia) 03/15/2012 KEVIN KRAMER DO 785.1 palpitations 03/15/2012 ALICIA KRAMER DOA K 787.20 difficulty swallowing (dysphagia) 03/15/2012 JR CASAS APRN 785.1 palpitations 03/15/2012 JR CASAS APRN 787.20 difficulty swallowing (dysphagia) 04/06/2012 491.21 CHRONIC BRONCHITIS - WITH ACUTE EXACERBATION 04/06/2012 DOMINGO FLORENCE APRN 491.21 CHRONIC BRONCHITIS - WITH ACUTE EXACERBATION 04/06/2012 SANTO BAIRD MD 491.21 CHRONIC BRONCHITIS - WITH ACUTE EXACERBATION [...] CHRONIC BRONCHITIS - WITH ACUTE EXACERBATION 04/06/2012 KEVIN KRAMER DO K 491.21 CHRONIC BRONCHITIS - WITH ACUTE EXACERBATION 04/06/2012 ALICIA KRAMER DOA K 491.21 CHRONIC BRONCHITIS - WITH ACUTE EXACERBATION 04/06/2012 NILAM DOVER APRN 491.21 CHRONIC BRONCHITIS - WITH ACUTE EXACERBATION 04/06/2012 KEVIN KRAMER DO K 491.21 CHRONIC BRONCHITIS - WITH ACUTE EXACERBATION 04/06/2012 JR CASAS APRN 491.21 CHRONIC BRONCHITIS - WITH ACUTE EXACERBATION 10/09/2012 DOMINGO FLORENCE APRN 401.1 ESSENTIAL HYPERTENSION BENIGN 10/09/2012 SANTO BAIRD MD 401.1 ESSENTIAL HYPERTENSION BENIGN 10/09/2012 401.1 ESSENTIAL HYPERTENSION BENIGN 10/09/2012 401.1 ESSENTIAL HYPERTENSION BENIGN 10/09/2012 401.1 ESSENTIAL HYPERTENSION BENIGN 10/09/2012 ALICIA KRAMER DOA K 401.1 ESSENTIAL HYPERTENSION BENIGN 10/09/2012 ALICIA KRAMER DOA K 401.1 ESSENTIAL HYPERTENSION BENIGN 10/09/2012 KRAMER [...] 04/28/2013 473.9 UNSPECIFIED SINUSITIS (CHRONIC) 04/28/2013 KRAMER DO KEVIN K 473.9 UNSPECIFIED SINUSITIS (CHRONIC) 04/28/2013 KRAMER DO, KEVIN K 473.9 UNSPECIFIED SINUSITIS (CHRONIC) 04/28/2013 KRAMER DO KEVIN K 473.9 UNSPECIFIED SINUSITIS (CHRONIC) 04/28/2013 NILAM DOVER APRN 473.9 UNSPECIFIED SINUSITIS (CHRONIC) 04/28/2013 KRAMER DO KEVIN K 473.9 UNSPECIFIED SINUSITIS (CHRONIC) 04/28/2013 KRAMER DO KEVIN K 473.9 UNSPECIFIED SINUSITIS (CHRONIC) 04/28/2013 NILAM DOVER APRN 473.9 UNSPECIFIED SINUSITIS (CHRONIC) 04/28/2013 KRAMER DO, EKVIN K 473.9 UNSPECIFIED SINUSITIS (CHRONIC) 04/28/2013 AUGUSTO NORRIS JR J 473.9 UNSPECIFIED SINUSITIS (CHRONIC) 04/29/2013 410.90 GA, UNSPECIFIED 04/29/2013 786.05 SHORTNESS OF BREATH 04/29/2013 786.50 CHEST PAIN 04/29/2013 410.90 GA, UNSPECIFIED 04/29/2013 786.05 SHORTNESS OF BREATH 04/29/2013 786.50 CHEST PAIN 04/29/2013 KRAMER DO, KEVIN K 410.90 GA, UNSPECIFIED 04/29/2013 KRAMER DO, KEVIN K 786.05 SHORTNESS OF BREATH 04/29/2013 KRAMER DO, KEVIN K 786.50 CHEST PAIN 04/29/2013 KRAMER DO, KEVIN K 410.90 GA, UNSPECIFIED 04/29/2013 KRAMER DO, KEVIN K 786.05 SHORTNESS OF BREATH 04/29/2013 KRAMER DO, KEVIN K 786.50 CHEST PAIN 04/29/2013 KRAMER DO, KEVIN K 410.90 GA, UNSPECIFIED 04/29/2013 KRAMER DO, KEVIN K 786.05 SHORTNESS OF BREATH 04/29/2013 KRAMER DO, KEVIN K 786.50 CHEST PAIN 04/29/2013 DOVER GASKET INSPECTORNILAM R 410.90 GA, UNSPECIFIED 04/29/2013 DOVER GASKET INSPECTORNILAM R 786.05 SHORTNESS OF BREATH 04/29/2013 DOVER GASKET INSPECTOR, NILAM R 786.50 CHEST PAIN 04/29/2013 KRAMER DO, KEVIN K 410.90 GA, UNSPECIFIED 04/29/2013 KRAMER DO, KEVIN K 786.05 SHORTNESS OF BREATH 04/29/2013 KRAMER DO, KEVIN K 786.50 CHEST PAIN 04/29/2013 KRAMER DO, KEVIN K 410.90 GA, UNSPECIFIED 04/29/2013 KRAMER DO, KEVIN K 786.05 SHORTNESS OF BREATH 04/29/2013 KRAMER DO, KEVIN K 786.50 CHEST PAIN 04/29/2013 DOVER GASKET INSPECTOR, NILAM R 410.90 GA, UNSPECIFIED 04/29/2013 DOVER GASKET INSPECTOR, NILAM R 786.05 SHORTNESS OF BREATH 04/29/2013 DOVER GASKET INSPECTOR, NILAM R 786.50 CHEST PAIN 04/29/2013 KRAMER DO, KEVIN K 410.90 GA, UNSPECIFIED 04/29/2013 KRAMER DO, KEVIN K 786.05 SHORTNESS OF BREATH 04/29/2013 KRAMER DO, KEVIN K 786.50 CHEST PAIN 04/29/2013 JR CASAS APRN 410.90 GA, UNSPECIFIED 04/29/2013 JR CASAS APRN 786.05 SHORTNESS OF BREATH 04/29/2013 JR CASAS APRN 786.50 CHEST PAIN 02/02/2014 KRAMER DO, KEVIN K 382.9 OTITIS MEDIA 02/02/2014 DOVERNILAM DEL CID APRN R 382.9 OTITIS MEDIA 02/02/2014 KRAMER DO, KEVIN K 382.9 OTITIS MEDIA 02/02/2014 KRAMER DO, KEVIN K 382.9 OTITIS MEDIA 02/02/2014 NILAM DOVER APRN R 382.9 OTITIS MEDIA 02/02/2014 KRAMER DO, KEVIN K 382.9 OTITIS MEDIA 02/02/2014 JR CASAS APRN 382.9 OTITIS MEDIA 04/08/2014 NILAM DOVER APRN R 388.70 EAR ACHE 04/08/2014 DOVERNILAM DEL CID APRN R 461.9 SINUSITIS ACUTE 04/08/2014 KRAMER DO, KEVIN K 388.70 EAR ACHE 04/08/2014 KRAMER DO, KEVIN K 461.9 SINUSITIS ACUTE 04/08/2014 KRAMER DO, KEVIN K 388.70 EAR ACHE 04/08/2014 KRAMER DO, KEVIN K 461.9 SINUSITIS ACUTE 04/08/2014 DOVERNILAM DEL CID APRN R 388.70 EAR ACHE 04/08/2014 DOVER NILAM NORRIS R 461.9 SINUSITIS ACUTE 04/08/2014 KRAMER DO, KEVIN K 388.70 EAR ACHE 04/08/2014 KRAMER DO, KEVIN K 461.9 SINUSITIS ACUTE 04/08/2014 JR CASAS APRN 388.70 EAR ACHE 04/08/2014 JR CASAS APRN 461.9 SINUSITIS ACUTE 06/01/2014 KRAMER DO, KEVIN K 466.0 ACUTE BRONCHITIS 06/01/2014 KRAMER DO, KEVIN K 719.47 PAIN IN JOINT INVOLVING ANKLE AND FOOT 06/01/2014 KRAMER DO, KEVIN K 466.0 ACUTE BRONCHITIS 06/01/2014 KEVIN KRAMER DO [...] 782.3 02/08/2015 Ot 242.90 02/08/2015 MAURILIO CAMERON GASKET INSPECTOR Ot 611.71 02/08/2015 TEN PA, KRISTYN Sonia Ot 414.00 02/08/2015 TEN PA, KRISTYN K Ot 242.90 02/08/2015 LITTLE-DEANNA PA, KRISTYN Scott Ot 401.1 02/08/2015 SIDNEY-DEANNA PA, KRISTYN K Ot 496 02/08/2015 LITTLE-DEANNA PA, KRISTYN K Ot 786.05 02/08/2015 LITTLE-DEANNA PA, KRISTYN K Ot 786.50 02/08/2015 SANDER POLK GASKET INSPECTOR Ot 435.9 02/13/2015 Ot 242.90 02/13/2015 Ot 745.5 02/13/2015 Ot 780.79 02/13/2015 Ot 782.1 02/13/2015 Ot 790.29 02/13/2015 Ot 793.99 02/13/2015 Ot 562.11 02/13/2015 Ot 240.9 02/13/2015 Ot 786.50 02/13/2015 Ot 493.90 02/13/2015 Ot 782.3 02/13/2015 Ot 242.90 02/13/2015 MAURILIO CAMERON GASKET INSPECTOR Ot 611.71 02/13/2015 TEN PA, KRISTYN K Ot 414.00 02/13/2015 SIDNEY-DEANNA PA, KRISTYN Scott Ot 242.90 02/13/2015 LITTLE-DEANNA PA, KRISTYN Scott Ot 401.1 02/13/2015 TEN PA, KRISTYN Scott Ot 496 02/13/2015 LITTLE-DEANNA PA, KRISTYN Scott Ot 786.05 02/13/2015 LITTLE-DEANNA PA, KRISTYN K Ot 786.50 02/13/2015 SANDER POLK GASKET INSPECTOR Ot 435.9 02/14/2015 Ot 242.90 02/14/2015 Ot 745.5 02/14/2015 Ot 780.79 02/14/2015 Ot 782.1 02/14/2015 Ot 790.29 02/14/2015 Ot 793.99 02/14/2015 Ot 562.11 02/14/2015 Ot 240.9 02/14/2015 Ot 786.50 02/14/2015 Ot 493.90 02/14/2015 Ot 782.3 02/14/2015 Ot 242.90 02/14/2015 MAURILIO CAMERON GASKET INSPECTOR Ot 611.71 02/14/2015 TEN PA, KRISTYN Scott Ot 414.00 02/14/2015 TEN PA, KRISTYN K Ot 242.90 02/14/2015 TEN PA, KRISTYN K Ot 401.1 02/14/2015 TEN PA, KRISTYN K Ot 496 02/14/2015 TEN PA, KRISTYN K Ot 786.05 02/14/2015 TEN PA, KRISTYN K Ot 786.50 02/14/2015 SANDER POLK GASKET INSPECTOR Ot 435.9 03/29/2015 HUEY ANDREA E GASKET INSPECTOR Ot 253.9 03/29/2015 REGINALDLHUEY MORAN E GASKET INSPECTOR Ot 382.9 03/29/2015 HELLALICIA MORANSIE E GASKET INSPECTOR Ot 473.9 03/29/2015 REGINALDLALICIA MORANSIE E GASKET INSPECTOR Ot 728.87 03/29/2015 HELLALICIA MORANSIE E GASKET INSPECTOR Ot 780.99 03/29/2015 ALICIA ANDREASIE E GASKET INSPECTOR Ot 781.0 04/06/2015 ALICIA ANDREASIE E GASKET INSPECTOR Ot 253.9 04/06/2015 HELLALICIA MORANSIE E GASKET INSPECTOR Ot 382.9 04/06/2015 HELLALICIA MORANSIE E GASKET INSPECTOR Ot 473.9 04/06/2015 ALICIA ANDREASIE E GASKET INSPECTOR Ot 728.87 04/06/2015 ALICIA ANDREASIE E GASKET INSPECTOR Ot 780.99 04/06/2015 ALICIA ANDREASIE E GASKET INSPECTOR Ot 781.0 11/07/2015 Ot 242.90 11/07/2015 Ot 745.5 11/07/2015 Ot 780.79 11/07/2015 Ot 782.1 11/07/2015 Ot 790.29 11/07/2015 Ot 793.99 11/07/2015 Ot 562.11 11/07/2015 Ot 240.9 11/07/2015 Ot 786.50 11/07/2015 Ot 493.90 11/07/2015 Ot 782.3 11/07/2015 Ot 242.90 11/07/2015 MAURILIO CAMERON Memo GASKET INSPECTOR Ot 611.71 11/07/2015 TEN PA, KRISTYN K Ot 414.00 11/07/2015 TEN PA, KRISTYN K Ot 242.90 11/07/2015 TEN PA, KRISTYN K Ot 401.1 11/07/2015 TEN PA, KRISTYN K Ot 496 11/07/2015 TEN PA, KRISTYN K Ot 786.05 11/07/2015 TEN PA, KRISTYN K Ot 786.50 11/07/2015 SANDER POLK APRN Ot 435.9 12/05/2015 NILAM DOVER Ot M16.0 01/25/2016 BHUPINDER SHORT MD Ot I10 ESSENTIAL (PRIMARY) HYPERTENSION 01/25/2016 BHUPINDER SHORT MD Ot I48.0 PAROXYSMAL ATRIAL FIBRILLATION 01/25/2016 BHUPINDER SHORT MD Ot J44.9 CHRONIC OBSTRUCTIVE PULMONARY DISEASE, U 01/25/2016 BHUPINDER SHOTR MD Ot Z86.73 PRSNL HX OF TIA (TIA), AND CEREB INFRC W 01/25/2016 BHUPINDER SHORT MD Ot I10 ESSENTIAL (PRIMARY) HYPERTENSION 01/25/2016 BHUPINDER SHORT MD Ot I48.0 PAROXYSMAL ATRIAL FIBRILLATION 01/25/2016 BHUPINDER SHORT MD, Ot J44.9 CHRONIC OBSTRUCTIVE PULMONARY DISEASE, U 01/25/2016 BHUPINDER SHORT MD Ot Q21.1 ATRIAL SEPTAL DEFECT 01/25/2016 BHUPINDER SHORT MD Ot Z86.73 PRSNL HX OF TIA (TIA), AND CEREB INFRC W 02/14/2016 SVETA COOK NEW GRAD RN Ot I48.91 UNSPECIFIED ATRIAL FIBRILLATION 02/14/2016 HUEY ANDREA APRN Ot E05.90 THYROTOXICOSIS, 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 THYROTOXIC 02/29/2016 PAMELA LAROSE FACC, [place] RAMIREZ CCDS Ot E05.90 THYROTOXICOSIS, 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 THYROTOXIC 02/29/2016 PAMELA LAROSE FACC, [place] RAMIREZ CCDS Ot I10 ESSENTIAL (PRIMARY) HYPERTENSION 02/29/2016 PAMELA LAROSE FACC, ALI FACP CCDS Ot I48.91 UNSPECIFIED ATRIAL FIBRILLATION 02/29/2016 PAMELA LAROSE [facility], ALI FACP CCDS Ot J44.9 CHRONIC OBSTRUCTIVE PULMONARY DISEASE, U 02/29/2016 PAMELA MD [facility], ALI FACP CCDS Ot J45.909 UNSPECIFIED ASTHMA, UNCOMPLICATED 02/29/2016 PAMELA LAROSE [facility], ALI FACP CCDS Ot Z86.73 PRSNL HX OF TIA (TIA), AND CEREB INFRC W 02/29/2016 PAMELA LAROSE [facility], ALI FACP CCDS Ot E05.90 THYROTOXICOSIS, 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 THYROTOXIC 02/29/2016 PAMELA MD [facility], ALI FACP CCDS Ot I10 ESSENTIAL (PRIMARY) HYPERTENSION 02/29/2016 PAMELA LAROSE [facility], ALI FACP CCDS Ot I48.91 UNSPECIFIED ATRIAL FIBRILLATION 02/29/2016 PAMELA LAROSE [facility], ALI FACP CCDS Ot J44.9 CHRONIC OBSTRUCTIVE PULMONARY DISEASE, U 02/29/2016 PAMELA LAROSE [facility], ALI FACP CCDS Ot J45.909 UNSPECIFIED ASTHMA, UNCOMPLICATED 02/29/2016 PAMELA MD [facility], ALI FACP CCDS Ot Z86.73 PRSNL HX OF TIA (TIA), AND CEREB INFRC W 03/10/2016 SVETA COOK L NEW GRAD RN Ot E05.90 THYROTOXICOSIS, 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 THYROTOXIC 03/10/2016 BAIMASVETA L NEW GRAD RN Ot I10 ESSENTIAL (PRIMARY) HYPERTENSION 03/10/2016 SVETA COOK L NEW GRAD RN Ot I48.0 PAROXYSMAL ATRIAL FIBRILLATION 03/10/2016 SVETA COOK L NEW GRAD RN Ot J44.9 CHRONIC OBSTRUCTIVE PULMONARY DISEASE, U 03/10/2016 SVETA COOK L NEW GRAD RN Ot Z79.01 MCC (CURRENT) USE OF ANTICOAGULANT 03/10/2016 BAIMAGLORIASVETA L NEW GRAD RN Ot Z86.73 PRSNL HX OF TIA (TIA), AND CEREB INFRC W 03/14/2016 BILL BARTHOLOMEW DO Ot R94.6 ABNORMAL RESULTS OF THYROID FUNCTION TRUPTI 03/15/2016 BAISVETA COBB L NEW GRAD RN Ot I48.91 UNSPECIFIED ATRIAL FIBRILLATION 03/15/2016 HUEY ANDREA APRN Ot E05.90 THYROTOXICOSIS, 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 THYROTOXIC 03/19/2016 PUMA BILL SALVADOR R Ot R94.6 ABNORMAL RESULTS OF THYROID FUNCTION TRUPTI 04/10/2016 SVETA COOK NEW GRAD RN Ot E05.90 THYROTOXICOSIS, 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 THYROTOXIC 04/10/2016 SVETA COOK NEW GRAD RN Ot I10 ESSENTIAL (PRIMARY) HYPERTENSION 04/10/2016 SVETA COOK NEW GRAD RN Ot I48.0 PAROXYSMAL ATRIAL FIBRILLATION 04/10/2016 SVETA COOK NEW GRAD RN Ot J44.9 CHRONIC OBSTRUCTIVE PULMONARY DISEASE, U 04/10/2016 SVETA COOK NEW GRAD RN Ot Z79.01 ROOF MECHANIC (CURRENT) USE OF ANTICOAGULANT 04/10/2016 SVETA COOK NEW GRAD RN Ot Z86.73 PRSNL HX OF TIA (TIA), AND CEREB INFRC W 04/10/2016 BILL BARTHOLOMEW DO R Ot R94.6 ABNORMAL RESULTS OF THYROID FUNCTION TRUPTI 06/11/2016 BILL BARTHOLOMEW DO Ot R94.6 ABNORMAL RESULTS OF THYROID FUNCTION TRUPTI 07/30/2016 Ot 562.11 DIVERTICULITIS COLON (W/O MENT OF HEMORR 07/30/2016 Ot 240.9 GOITER NOS 07/30/2016 Ot 786.50 CHEST PAIN NOS 07/30/2016 Ot 493.90 ASTHMA, UNSPECIFIED 07/30/2016 Ot 782.3 EDEMA 07/30/2016 Ot 242.90 THYROTOX NOS NO CRISIS 07/30/2016 MAURILIO CAMERON GASKET INSPECTOR Ot 611.71 MASTODYNIA 07/30/2016 KRISTYN DHILLON Ot 414.00 CORON ATHEROSCLER NOS TYPE VESSEL, NATIV 07/30/2016 KRISTYN DHILLON Ot 242.90 THYROTOX NOS NO CRISIS 07/30/2016 KRISTYN DHILLON Ot 401.1 BENIGN HYPERTENSION 07/30/2016 KRISTYN DHILLON Ot 496 CHR AIRWAY OBSTRUCT NEC 07/30/2016 KRISTYN DHILLON Ot 786.05 SHORTNESS OF BREATH 07/30/2016 KRISTYN DHILLON Ot 786.50 CHEST PAIN NOS 07/30/2016 SANDER POLK GASKET INSPECTOR Ot 435.9 TRANS CEREB ISCHEMIA NOS 07/30/2016 NILAM DOVER Ot M16.0 BILATERAL PRIMARY OSTEOARTHRITIS OF HIP 07/30/2016 SVETA COOK NEW GRAD RN Ot I48.91 UNSPECIFIED ATRIAL FIBRILLATION 07/30/2016 HUEY ANDREA APRN Ot E05.90 THYROTOXICOSIS, 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 THYROTOXIC 07/30/[address] COBB NEW GRAD RN Ot E05.90 THYROTOXICOSIS, 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 THYROTOXIC 07/30/[address] BAISVETA COBB NEW GRAD RN Ot I10 ESSENTIAL (PRIMARY) HYPERTENSION 07/30/2016 BAISVETA COBB NEW GRAD RN Ot I48.0 PAROXYSMAL ATRIAL FIBRILLATION 07/30/2016 BAISVETA COBB NEW GRAD RN Ot J44.9 CHRONIC OBSTRUCTIVE PULMONARY DISEASE, U 07/30/[address] N[address]IASVETA COBB NEW GRAD RN Ot Z79.01 ROOF MECHANIC (CURRENT) USE OF ANTICOAGULANT 07/30/2016 NIDIAJORDYN SVETA Packer NEW GRAD RN Ot Z86.73 PRSNL HX OF TIA (TIA), AND CEREB INFRC W 07/30/2016 BILL BARTHOLOMEW DO Ot R94.6 ABNORMAL RESULTS OF THYROID FUNCTION TRUPTI 07/30/2016 BILL BARTHOLOMEW DO Ot R94.6 ABNORMAL RESULTS OF THYROID FUNCTION TRUPTI 07/31/2016 BILL BARTHOLOMEW DO Ot E05.90 THYROTOXICOSIS, 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 THYROTOXIC 08/28/2016 PUMABILL OROZCO DO Ot E05.90 THYROTOXICOSIS, 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 THYROTOXIC 09/17/2016 [...] 786.50 CHEST PAIN NOS 09/17/2016 SANDER POLK APRN Ot 435.9 TRANS CEREB ISCHEMIA NOS 09/17/2016 NILAM DOVER MELONY Ot M16.0 BILATERAL PRIMARY OSTEOARTHRITIS OF HIP 09/17/2016 BAIGLORIA COBBHER L NEW GRAD RN Ot I48.91 UNSPECIFIED ATRIAL FIBRILLATION 09/17/2016 HUEY ANDREA APRN Ot E05.90 THYROTOXICOSIS, 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 THYROTOXIC 09/17/2016 BAIMA, SVETA L NEW GRAD RN Ot E05.90 THYROTOXICOSIS, 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 THYROTOXIC 09/17/2016 BAIMA SVETA L NEW GRAD RN Ot I10 ESSENTIAL (PRIMARY) HYPERTENSION 09/17/2016 BAIMA SVETA L NEW GRAD RN Ot I48.0 PAROXYSMAL ATRIAL FIBRILLATION 09/17/2016 BAIJORDYN SVETA L NEW GRAD RN Ot J44.9 CHRONIC OBSTRUCTIVE PULMONARY DISEASE, U 09/17/2016 BAIGLORIA COBBHER L NEW GRAD RN Ot Z79.01 ROOF MECHANIC (CURRENT) USE OF ANTICOAGULANT 09/17/2016 BAIJORDYN SVETA L NEW GRAD RN Ot Z86.73 PRSNL HX OF TIA (TIA), AND CEREB INFRC W 09/17/2016 BILL BARTHOLOMEW DO Ot R94.6 ABNORMAL RESULTS OF THYROID FUNCTION TRUPTI 09/17/2016 BILL BARTHOLOMEW DO Ot R94.6 ABNORMAL RESULTS OF THYROID FUNCTION TRUPTI 09/17/2016 BILL BARTHOLOMEW DO Ot E05.90 THYROTOXICOSIS, 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 THYROTOXIC 01/13/2017 VISHALFFEBRITTNEY CRENSHAW Ot R05 COUGH 01/13/2017 Ot 786.50 CHEST PAIN NOS 01/13/2017 Ot 493.90 ASTHMA, UNSPECIFIED 01/13/2017 Ot 782.3 EDEMA 01/13/2017 Ot 242.90 THYROTOX NOS NO CRISIS 01/13/2017 MAURILIO CAMERON APRN Ot 611.71 MASTODYNIA 01/13/2017 KRISTYN DHILLON Ot 414.00 CORON ATHEROSCLER NOS TYPE VESSEL, NATIV 01/13/2017 KRISTYN DHILLON Ot 242.90 THYROTOX NOS NO CRISIS 01/13/2017 KRISTYN DHILLON Ot 401.1 BENIGN HYPERTENSION 01/13/2017 KRISTYN DHILLON Ot 496 CHR AIRWAY OBSTRUCT NEC 01/13/2017 KRISTYN DHILLON Ot 786.05 SHORTNESS OF BREATH 01/13/2017 KRISTYN DHILLON Ot 786.50 CHEST PAIN NOS 01/13/2017 SANDER POLK GASKET INSPECTOR Ot 435.9 TRANS CEREB ISCHEMIA NOS 01/13/2017 NILAM DOVER CFREYNA Ot M16.0 BILATERAL PRIMARY OSTEOARTHRITIS OF HIP 01/13/2017 SVETA COOK NEW GRAD RN Ot I48.91 UNSPECIFIED ATRIAL FIBRILLATION 01/13/2017 HUEY ANDREA GASKET INSPECTOR Ot E05.90 THYROTOXICOSIS, 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 THYROTOXIC 01/13/2017 SVETA COOK L NEW GRAD RN Ot E05.90 THYROTOXICOSIS, 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 THYROTOXIC 01/13/2017 SVETA COOK NEW GRAD RN Ot I10 ESSENTIAL (PRIMARY) HYPERTENSION 01/13/2017 SVETA COOK L NEW GRAD RN Ot I48.0 PAROXYSMAL ATRIAL FIBRILLATION 01/13/2017 SVETA COOK NEW GRAD RN Ot J44.9 CHRONIC OBSTRUCTIVE PULMONARY DISEASE, U 01/13/2017 SVETA COOK NEW GRAD RN Ot Z79.01 ROOF MECHANIC (CURRENT) USE OF ANTICOAGULANT 01/13/2017 SVETA COKO NEW GRAD RN Ot Z86.73 PRSNL HX OF TIA (TIA), AND CEREB INFRC W 01/13/2017 PUMA SALVADOR BILL R Ot R94.6 ABNORMAL RESULTS OF THYROID FUNCTION TRUPTI 01/13/2017 PUMA SALVADOR BILL R Ot R94.6 ABNORMAL RESULTS OF THYROID FUNCTION TRUPTI 01/13/2017 PUMA SALVADOR BILL R Ot E05.90 THYROTOXICOSIS, 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 THYROTOXIC 01/14/2017 PAMELA LAROSE FACC, [place] RAMIREZ CCDS Ot I48.0 PAROXYSMAL ATRIAL FIBRILLATION 01/14/2017 PAMELA LAROSE FACC, [place] LEUNGP CCDS Ot I73.9 PERIPHERAL VASCULAR DISEASE, UNSPECIFIED 01/14/2017 PAMELA LAROSE FACC, [place] LEUNGP CCDS Ot M79.89 OTHER SPECIFIED SOFT TISSUE DISORDERS 06/12/2017 BRITTNEY QUINONEZ Ot R05 COUGH 06/12/2017 BRITTNEY QUINONEZ Ot E01.0 IODINE-DEFICIENCY RELATED DIFFUSE (ENDEM 06/12/2017 BRITTNEY QUINONEZ Ot E07.9 DISORDER OF THYROID, UNSPECIFIED 06/24/2017 DANNA, EMMANUELLE Tee LIMEROCK TOWER LOADER Ot J32.9 CHRONIC SINUSITIS, UNSPECIFIED 06/24/2017 DANNA, EMMANUELLE J LIMEROCK TOWER LOADER Ot J33.9 NASAL POLYP, UNSPECIFIED 07/08/2017 DANNA, EMMANUELLE J LIMEROCK TOWER LOADER Ot J32.9 CHRONIC SINUSITIS, UNSPECIFIED 07/08/2017 DANNA, EMMANUELLE J LIMEROCK TOWER LOADER Ot J33.9 NASAL POLYP, UNSPECIFIED 07/26/2017 PAT GOETZ MD, Ot E05.80 OTHER THYROTOXICOSIS WITHOUT THYROTOXIC 07/26/2017 PAT GOETZ MD, Ot F32.9 MAJOR DEPRESSIVE DISORDER, SINGLE EPISOD 07/26/2017 PAT GOETZ MD, Ot I48.0 PAROXYSMAL ATRIAL FIBRILLATION 07/26/2017 PAT GOETZ MD, Ot J44.9 CHRONIC OBSTRUCTIVE PULMONARY DISEASE, U 07/26/2017 PAT GOETZ MD, Ot M19.90 UNSPECIFIED OSTEOARTHRITIS, UNSPECIFIED 07/26/2017 PAT GOETZ MD, Ot R00.2 PALPITATIONS 07/26/2017 PAT GOETZ MD Ot Z77.22 CNTCT W AND EXPSR TO ENVIRON TOBACCO SMO 07/26/2017 PAT GOETZ MD, Ot Z79.01 MCC (CURRENT) USE OF ANTICOAGULANT 07/26/2017 PAT GOETZ MD Ot Z79.02 MCC (CURRENT) USE OF ANTITHROMBOTI 07/26/2017 PAT GOETZ MD Ot Z82.49 FAMILY HX OF ISCHEM HEART DIS AND OTH DI 07/26/2017 PAT GOETZ MD, Ot Z87.59 PERSONAL HISTORY OF COMP OF PREG, CHLDBR 07/28/2017 PAT GOETZ MD Ot E05.80 OTHER THYROTOXICOSIS WITHOUT THYROTOXIC 07/28/2017 PAT GOETZ MD, Ot F32.9 MAJOR DEPRESSIVE DISORDER, SINGLE EPISOD 07/28/2017 PAT GOETZ MD Ot I48.0 PAROXYSMAL ATRIAL FIBRILLATION 07/28/2017 PAT GOETZ MD Ot J44.9 CHRONIC OBSTRUCTIVE PULMONARY DISEASE, U 07/28/2017 PAT GOETZ MD Ot M19.90 UNSPECIFIED OSTEOARTHRITIS, UNSPECIFIED 07/28/2017 PAT GOETZ MD Ot R00.2 PALPITATIONS 07/28/2017 PAT GOETZ MD Ot Z77.22 CNTCT W AND EXPSR TO ENVIRON TOBACCO SMO 07/28/2017 PAT GOETZ MD Ot Z79.01 ROOF MECHANIC (CURRENT) USE OF ANTICOAGULANT 07/28/2017 PAT GOETZ MD, Ot Z79.02 ROOF MECHANIC (CURRENT) USE OF ANTITHROMBOTI 07/28/2017 PAT GOETZ MD Ot Z82.49 FAMILY HX OF ISCHEM HEART DIS AND OTH DI 07/28/2017 PAT GOETZ MD Ot Z87.59 PERSONAL HISTORY OF COMP OF PREG, CHLDBR 08/01/2017 PAT GOETZ MD Ot E05.80 OTHER THYROTOXICOSIS WITHOUT THYROTOXIC 08/01/2017 PAT GOETZ MD Ot F32.9 MAJOR DEPRESSIVE DISORDER, SINGLE EPISOD 08/01/2017 PAT GOETZ MD, Ot I48.0 PAROXYSMAL ATRIAL FIBRILLATION 08/01/2017 PAT GOETZ MD, Ot J44.9 CHRONIC OBSTRUCTIVE PULMONARY DISEASE, U 08/01/2017 PAT GOETZ MD Ot M19.90 UNSPECIFIED OSTEOARTHRITIS, UNSPECIFIED 08/01/2017 PAT GOETZ MD Ot R00.2 PALPITATIONS 08/01/2017 PAT GOETZ MD Ot Z77.22 CNTCT W AND EXPSR TO ENVIRON TOBACCO SMO 08/01/2017 PAT GOETZ MD Ot Z79.01 ROOF MECHANIC (CURRENT) USE OF ANTICOAGULANT 08/01/2017 PAT GOETZ MD Ot Z79.02 MCC (CURRENT) USE OF ANTITHROMBOTI 08/01/2017 PAT GOETZ MD Ot Z82.49 FAMILY HX OF ISCHEM HEART DIS AND OTH DI 08/01/2017 PAT GOETZ MD Ot Z87.59 PERSONAL HISTORY OF COMP OF PREG, CHLDBR 10/29/2017 DEGRAFFENREID-DURAN, BRITTNEY L Ot R05 COUGH 10/29/2017 DEGRAFFENREID-DURAN, BRITTNEY L Ot E01.0 IODINE-DEFICIENCY RELATED DIFFUSE (ENDEM 10/29/2017 DEGRAFFENREID-DURAN, BRITTNEY L Ot E07.9 DISORDER OF THYROID, UNSPECIFIED 10/29/2017 DANNA, EMMANUELLE J [employer]OCK TOWER LOADER Ot J32.9 CHRONIC SINUSITIS, UNSPECIFIED 10/29/2017 DANNA, EMMANUELLE J [employer]EROCK TOWER LOADER Ot J33.9 NASAL POLYP, UNSPECIFIED 10/30/2017 GAYEBRI KWONINE E GASKET INSPECTOR Ot J45.909 UNSPECIFIED ASTHMA, UNCOMPLICATED 10/30/2017 GAYEBRICARINA E GASKET INSPECTOR Ot R06.00 DYSPNEA, UNSPECIFIED 10/30/2017 GAYE CARINA E GASKET INSPECTOR Ot R09.02 HYPOXEMIA 11/05/2017 BRI HUIZARINE E GASKET INSPECTOR Ot J45.909 UNSPECIFIED ASTHMA, UNCOMPLICATED 11/05/2017 GAYE CARINA E GASKET INSPECTOR Ot R06.00 DYSPNEA, UNSPECIFIED 11/05/2017 GAYE CARINA E GASKET INSPECTOR Ot R09.02 HYPOXEMIA 11/05/2017 GAYE, CARINA E GASKET INSPECTOR Ot J45.909 UNSPECIFIED ASTHMA, UNCOMPLICATED 11/05/2017 GAYE, CARINA E GASKET INSPECTOR Ot R06.00 DYSPNEA, UNSPECIFIED 11/05/2017 GAYE CARINA E GASKET INSPECTOR Ot R09.02 HYPOXEMIA 11/05/2017 BRI HUIZARINE E GASKET INSPECTOR Ot J45.909 UNSPECIFIED ASTHMA, UNCOMPLICATED 11/05/2017 GAYE CARINA E GASKET INSPECTOR Ot R06.00 DYSPNEA, UNSPECIFIED 11/05/2017 GAYE CARINA E GASKET INSPECTOR Ot R09.02 HYPOXEMIA 11/05/2017 DEGRAFFENREID-DURAN, BRITTNEY L Ot R05 COUGH 11/05/2017 DEGRAFFENREID-DURAN, BRITTNEY L Ot E01.0 IODINE-DEFICIENCY RELATED DIFFUSE (ENDEM 11/05/2017 DEGRAFFENREID-DURAN, BRITTNEY L Ot E07.9 DISORDER OF THYROID, UNSPECIFIED 11/05/2017 DANNA, EMMANUELLE J [employer] TOWER LOADER Ot J32.9 CHRONIC SINUSITIS, UNSPECIFIED 11/05/2017 DANNA, EMMANUELLE J LIMEROCK TOWER LOADER Ot J33.9 NASAL POLYP, UNSPECIFIED 11/05/2017 CARINA HUIZAR GASKET INSPECTOR Ot J45.909 UNSPECIFIED ASTHMA, UNCOMPLICATED 11/05/2017 CARINA HUIZAR GASKET INSPECTOR Ot R06.00 DYSPNEA, UNSPECIFIED 11/05/2017 CARINA HUIZAR GASKET INSPECTOR Ot R09.02 HYPOXEMIA 11/05/2017 DANNA, EMMANUELLE J [employer]EROCK TOWER LOADER Ot J32.9 CHRONIC SINUSITIS, UNSPECIFIED 11/05/2017 DANNA, EMMANUELLE J [employer]EROCK TOWER LOADER Ot J33.9 NASAL POLYP, UNSPECIFIED 11/16/2017 DANNA, EMMANUELLE J [employer]EROCK TOWER LOADER Ot J32.9 CHRONIC SINUSITIS, UNSPECIFIED 11/16/2017 DANNA, EMMANUELLE J LIMEROCK TOWER LOADER Ot J33.9 NASAL POLYP, UNSPECIFIED 11/16/2017 DANNA, EMMANUELLE J [employer]EROCK TOWER LOADER Ot J32.9 CHRONIC SINUSITIS, UNSPECIFIED 11/16/2017 DANNA, EMMANUELLE J [employer]ER[employer] TOWER LOADER Ot J33.9 NASAL POLYP, UNSPECIFIED 11/16/2017 MAURILIO CAMERON GASKET INSPECTOR Ot 611.71 MASTODYNIA 11/16/2017 KRISTYN DHILLON Ot 414.00 CORON ATHEROSCLER NOS TYPE VESSEL, NATIV 11/16/2017 KRISTYN DHILLON Ot 242.90 THYROTOX NOS NO CRISIS 11/16/2017 KRISTYN DHILLON Ot 401.1 BENIGN HYPERTENSION 11/16/2017 KRISTYN DHILLON Ot 496 CHR AIRWAY OBSTRUCT NEC 11/16/2017 KRISTYN DHILLON Ot 786.05 SHORTNESS OF BREATH 11/16/2017 KRISTYN DHILLON Ot 786.50 CHEST PAIN NOS 11/16/2017 SANDER POLK GASKET INSPECTOR Ot 435.9 TRANS CEREB ISCHEMIA NOS 11/16/2017 NILAM DOVER Ot M16.0 BILATERAL PRIMARY OSTEOARTHRITIS OF HIP 11/16/2017 SVETA COOK Ot I48.91 UNSPECIFIED ATRIAL FIBRILLATION 11/16/2017 HUEY ANDREA GASKET INSPECTOR Ot E05.90 THYROTOXICOSIS, 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 THYROTOXIC 11/16/2017 BAIMA, SVETA L NEW GRAD RN Ot E05.90 THYROTOXICOSIS, 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 THYROTOXIC 11/16/2017 SVETA COOK NEW GRAD RN Ot I10 ESSENTIAL (PRIMARY) HYPERTENSION 11/16/2017 SVETA COOK NEW GRAD RN Ot I48.0 PAROXYSMAL ATRIAL FIBRILLATION 11/16/2017 SVETA COOK NEW GRAD RN Ot J44.9 CHRONIC OBSTRUCTIVE PULMONARY DISEASE, U 11/16/2017 SVETA COOK NEW GRAD RN Ot Z79.01 MCC (CURRENT) USE OF ANTICOAGULANT 11/16/2017 SVETA COOK NEW GRAD RN Ot Z86.73 PRSNL HX OF TIA (TIA), [...] SOFT TISSUE DISORDERS 11/16/2017 DANNA, EMMANUELLE J [employer] TOWER LOADER Ot J32.9 CHRONIC SINUSITIS, UNSPECIFIED 11/16/2017 DANNA, EMMANUELLE J [employer] TOWER LOADER Ot J33.9 NASAL POLYP, UNSPECIFIED 11/18/2017 CARINA HUIZAR GASKET INSPECTOR Ot J45.909 UNSPECIFIED ASTHMA, UNCOMPLICATED 11/18/2017 CARINA HUIZAR GASKET INSPECTOR Ot R06.00 DYSPNEA, UNSPECIFIED 11/18/2017 CARINA HUIZAR GASKET INSPECTOR Ot R09.02 HYPOXEMIA 02/15/2018 VIKTORIYA NELSON MD Ot E05.90 THYROTOXICOSIS, 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 THYROTOXIC 02/15/2018 VIKTORIYA NELSON MD J Ot F32.9 MAJOR DEPRESSIVE DISORDER, SINGLE EPISOD 02/15/2018 VIKTOIRYA NELSON MD J Ot I48.91 UNSPECIFIED ATRIAL FIBRILLATION 02/15/2018 VIKTORIYA NELSON MD Ot J20.9 ACUTE BRONCHITIS, UNSPECIFIED 02/15/2018 VIKTORIYA NELSON MD Ot J44.0 CHRONIC OBSTRUCTIVE PULMON DISEASE W ACU 02/15/2018 VIKTORIYA NELSON MD Ot R05 COUGH 02/15/2018 VIKTORIYA NELSON MD Ot Z79.01 ROOF MECHANIC (CURRENT) USE OF ANTICOAGULANT 02/15/2018 VIKTORIYA NELSON MD Ot Z79.51 MCC (CURRENT) USE OF INHALED STERO 02/15/2018 VIKTORIYA NELSON MD Ot Z79.52 MCC (CURRENT) USE OF SYSTEMIC STER 02/15/2018 VIKTORIYA NELSON MD Ot Z82.49 FAMILY HX OF ISCHEM HEART DIS AND OTH DI 02/15/2018 VIKTORIYA NELSON MD Ot Z87.59 PERSONAL HISTORY [...] COUGH 02/17/2018 VIKTORIYA NELSON MD Ot Z79.01 ROOF MECHANIC (CURRENT) USE OF ANTICOAGULANT 02/17/2018 VIKTORIYA NELSON MD Ot Z79.51 ROOF MECHANIC (CURRENT) USE OF INHALED STERO 02/17/2018 VIKTORIYA NELSON MD Ot Z79.52 ROOF MECHANIC (CURRENT) USE OF SYSTEMIC STER 02/17/2018 VIKTORIYA [...] Z88.2 ALLERGY STATUS TO SULFONAMIDES STATUS 03/02/2018 DEGRAFFENREID-ROGER, BRITTNEY L Ot N64.4 MASTODYNIA 03/11/2018 PAMELA LEUNGC, ALI FACP CCDS Ot E05.90 THYROTOXICOSIS, 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 THYROTOXIC 03/11/2018 PAMELA LEUNGC, ALI FACP CCDS Ot E66.9 OBESITY, UNSPECIFIED 03/11/2018 PAMELA LEUNGC, ALI FACP CCDS Ot G47.33 OBSTRUCTIVE SLEEP APNEA (ADULT) (PEDIATR 03/11/2018 PAMELA LEUNGC, ALI FACP CCDS Ot I10 [...] OBSTRUCTIVE SLEEP APNEA (ADULT) (PEDIATR 03/11/2018 PAMELA LEUNGC, ALI FACP CCDS Ot I10 ESSENTIAL (PRIMARY) HYPERTENSION 03/11/2018 PAMELA LEUNGC, ALI FACP CCDS Ot I48.0 PAROXYSMAL ATRIAL FIBRILLATION 03/11/2018 PAMELA LEUNGC, ALI FACP CCDS Ot R07.89 OTHER CHEST PAIN 03/23/2018 DEGRAFFENREID-DUARN, BRITTNEY L Ot N64.4 MASTODYNIA 03/25/2018 PAMELA LEUNGC, ALI FACP CCDS Ot E05.90 THYROTOXICOSIS, 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 THYROTOXIC 03/25/2018 PAMELA LEUNGC, ALI FACP CCDS Ot E66.9 OBESITY, UNSPECIFIED 03/25/2018 PHOENIX SANTIAGO MD, FACC, FACP CCDS Ot G47.33 OBSTRUCTIVE SLEEP APNEA (ADULT) (PEDIATR 03/25/2018 PAMELA LAROSE FACC, [facility] CCD[facility] Ot I10 ESSENTIAL (PRIMARY) HYPERTENSION 03/25/2018 PAMELA LAROSE FACC, [facility] CCDS Ot I48.0 PAROXYSMAL ATRIAL FIBRILLATION 03/25/2018 PAMELA LAROSE FACC, [facility] CCDS Ot R07.89 OTHER CHEST PAIN 04/02/2018 GENOVEVA JONES GASKET INSPECTOR Ot G47.33 OBSTRUCTIVE SLEEP APNEA (ADULT) (PEDIATR 04/02/2018 GENOVEVA JONES GASKET INSPECTOR Ot G47.33 OBSTRUCTIVE SLEEP APNEA (ADULT) (PEDIATR Procedures Code Description [place] [address] MAMMOGRAM DX, PETE 03/18/2013 98415 NUCLEAR STRESS TESTING 05/02/2013 80111 ECHO 2D 05/03/2013 Cardiolog Varsha Willett 05/19/2013 55434 THERAPUTIC INJ SQ/IM 11/14/2013 J1040 DEPO MEDROL 80 MG INJ 11/14/2013 58174 OXIMETRY 11/14/2013 25708 XRAY ANKLE L COMP MIN, 3 VIEWS 06/01/2014 38099 THERAPUTIC INJ SQ/IM 07/05/2014 J2930 SOLUMEDROL INJ 07/05/2014 32166 CULTURE NASAL 10/30/2014 Results Test Result Range [...] 46.0 NRG IgE measurement (mass/volume) See Footnote NR Complete blood count (CBC) with automated white [...] Total triiodothyronine (T3) measurement 1.31 % 0.60-1.80 Complete blood count (CBC) with automated white blood cell (WBC) differential - 01/13/19 10:15 Blood leukocytes automated count (number/volume) 11.3 10*3/uL 4.3-11.0 Blood erythrocytes automated count (number/volume) 5.12 10*6/uL 4.35-5.85 Venous blood hemoglobin measurement (mass/volume) 14.2 g/dL 11.5-16.0 Blood hematocrit (volume fraction) 44 % 35-52 Automated erythrocyte mean corpuscular volume 86 [foz_us] 80-99 Automated erythrocyte mean corpuscular hemoglobin (mass per erythrocyte) 28 pg 25-34 Automated erythrocyte mean corpuscular hemoglobin concentration measurement ( mass/volume) 32 g/dL 32-36 Automated erythrocyte distribution width ratio 15.4 % 10.0-14.5 Automated blood platelet count (count/volume) 235 10*3/uL 130-400 Automated blood platelet mean volume measurement 10.9 [foz_us] 7.4-10.4 Automated blood neutrophils/100 leukocytes 72 % 42-75 Automated blood lymphocytes/100 leukocytes 18 % 12-44 Blood monocytes/100 leukocytes 7 % 0-12 Automated blood eosinophils/100 leukocytes 3 % 0-10 Automated blood basophils/100 leukocytes 0 % 0-10 Blood neutrophils automated count (number/volume) 8.1 10*3 1.8-7.8 Blood lymphocytes automated count (number/volume) 2.0 10*3 1.0-4.0 Blood monocytes automated count (number/volume) 0.8 10*3 0.0-1.0 Automated eosinophil count 0.3 10*3/uL 0.0-0.3 Automated blood basophil count (count/volume) 0.0 10*3/uL 0.0-0.1 PT panel in platelet poor plasma by coagulation assay - 01/13/19 10:15 Prothrombin time (PT) in platelet poor plasma by coagulation assay 13.3 s 12.2-14.7 INR in platelet poor plasma or blood by coagulation assay 1.0 0.8-1.4 Activated partial thromboplastin time (aPTT) in platelet poor plasma bycoagulation assay - 01/13/19 10:15 Activated partial thromboplastin time (aPTT) in platelet poor plasma bycoagulation assay 40 s 24-35 Comprehensive metabolic panel - 01/13/19 10:15 Serum or plasma sodium measurement (moles/volume) 139 mmol/L 135-145 Serum or plasma potassium measurement (moles/volume) 4.1 mmol/L 3.6-5.0 Serum or plasma chloride measurement (moles/volume) 101 mmol/L 98-107 Carbon dioxide 30 mmol/L 21-32 Serum or plasma anion gap determination (moles/volume) 8 mmol/L 5-14 Serum or plasma urea nitrogen measurement (mass/volume) 13 mg/dL 7-18 Serum or plasma creatinine measurement (mass/volume) 0.76 mg/dL 0.60-1.30 Serum or plasma urea nitrogen/creatinine mass ratio 17 NRG Serum or plasma creatinine measurement with calculation of estimated glomerular filtration rate > NRG Serum or plasma glucose measurement (mass/volume) 93 mg/dL 70-105 Serum or plasma calcium measurement (mass/volume) 9.4 mg/dL 8.5-10.1 Serum or plasma total bilirubin measurement (mass/volume) 1.0 mg/dL 0.1-1.0 Serum or plasma alkaline phosphatase measurement (enzymatic activity/volume) 84 U/L 40-136 Serum or plasma aspartate aminotransferase measurement (enzymatic activity/ volume) 20 U/L 5-34 Serum or plasma alanine aminotransferase measurement (enzymatic activity/volume ) 26 U/L 0-55 Serum or plasma protein measurement (mass/volume) 6.8 g/dL 6.4-8.2 Serum or plasma albumin measurement (mass/volume) 4.0 g/dL 3.2-4.5 CALCIUM CORRECTED 9.4 mg/dL 8.5-10.1 Magnesium - 01/13/19 10:15 Magnesium 2.4 mg/dL 1.8-2.4 Serum or plasma troponin i.cardiac measurement (mass/volume) - 01/13/19 10:15 Serum or plasma troponin i.cardiac measurement (mass/volume) < ng/ mL <0.028 THYROID STIMULATING HORMONE - 01/13/19 10:15 THYROID STIMULATING HORMONE 3.37 u[iU]/mL 0.35-4.94 Serum or plasma thyroxine (T4) free measurement (mass/volume) - 01/13/19 10:15 Serum or plasma thyroxine (T4) free measurement (mass/volume) 1.18 ng/dL 0.70-1.48 Myoglobin, serum - 01/13/19 10:15 Myoglobin, serum 34.5 ng/mL 10.0-92.0 Encounters ACCT No. Visit Date/Time Discharge Status Pt. Type Provider Facility Loc./Unit Complaint [id number] 01/04/2019 18:40:00 01/04/2019 23:59:59 [facility] Outpatient VISHALFFEBRITTNEY WASHINGTON [id number] 07/29/2017 09:00:00 Document Registration [id number] 10/30/2014 11:49:00 10/30/2014 23:59:59 CLS Outpatient JR CASAS APRN [id number] 09/18/2014 10:04:00 09/18/2014 23:59:59 CLS Outpatient KRAMER DO, KEVIN Sonia [id number] 07/05/2014 08:39:00 07/05/2014 23:59:59 CLS Outpatient JAZZMINE NORRISNILAM [id number] 06/30/2014 15:16:00 06/30/2014 23:59:59 CLS Outpatient KEVIN KRAMER DO Sonia [id number] 06/01/2014 09:09:00 06/01/2014 23:59:59 CLS Outpatient KEVIN KRAMER DO Sonia [id number] 04/08/2014 09:41:00 04/08/2014 23:59:59 CLS Outpatient JAZZMINE MÁRQUEZNILAM Roger [id number] 02/02/2014 10:03:00 02/02/2014 23:59:59 CLS Outpatient KEVIN KRAMER DO Sonia [id number] 11/14/2013 10:48:00 11/14/2013 23:59:59 CLS Outpatient KEVIN KRAMER DO Sonia [id number] 07/07/2013 10:53:00 07/07/2013 23:59:59 CLS Outpatient KEVIN KRAMER DO Sonia [id number] 11/17/2012 14:30:00 11/17/2012 23:59:59 CLS Outpatient CHARITY EDGAR MD, SANTO [place] [id number] 10/09/2012 14:01:00 10/09/2012 23:59:59 CLS Outpatient ERASMO FLORENCE APRNMESFIN Boateng [id number] 05/25/2012 12:45:00 05/25/2012 23:59:59 CLS Outpatient [id number] 05/25/2012 12:45:00 05/25/2012 23:59:59 CLS Outpatient [id number] 05/19/2013 08:50:00 Document Registration [id number] 04/29/2013 10:25:00 Document Registration [id number] 03/18/2013 13:10:00 Document Registration [id number] 04/01/2018 20:43:00 04/02/2018 06:28:00 DIS Outpatient GENOVEVA JONES APRN [facility] SLEEP OBSERVED APNEAS, SNORING,CHOKING GASPING IN SLEEP [id number] 03/09/2018 07:42:00 03/09/2018 23:59:59 CLS Outpatient PAMELA LAROSE FACC, PHOENIX RAMIREZ CCDS [facility] CARD CHEST DISCOMFORT,HTN, HYPERTHYROIDISM [id number] 03/01/2018 12:58:00 03/01/2018 23:59:59 CLS Outpatient DEGRAFFENRJOCELYND-BRITTNEY DURAN L [facility] RAD BREAST TENDERNESS IN FEMALE [id number] 02/15/2018 13:40:00 02/15/2018 15:36:00 DIS Emergency OMAR LAROSE, VIKTORIYA Oliveira [facility] ER COUGH,SOA [id number] 02/10/2018 13:57:00 02/10/2018 23:59:59 CLS Preadmit DEGRAFFENREID-JENNIFER DURANHA L [facility] RAD BREAST TENDERNESS IN FEMALE [id number] 11/03/2017 13:49:00 11/03/2017 23:59:59 CLS Preadmit CARINA HUIZAR E GASKET INSPECTOR [facility] SLEEP G47.9 SLEEP DISORDER [id number] 11/02/2017 10:45:00 11/02/2017 23:59:59 CLS Preadmit GAYEBRI KWONINE E GASKET INSPECTOR [facility] PUL J45.909 ASTHMA [id number] 10/29/2017 15:11:00 10/29/2017 23:59:59 CLS Preadmit GAYEBRI KWONINE E GASKET INSPECTOR [facility] RT J45.909 ASTHMA [id number] 10/29/2017 10:46:00 10/29/2017 23:59:59 CLS Outpatient BRI HUIZARINE E GASKET INSPECTOR [facility] LAB J45.909 R06.00 R09.02 [id number] 07/26/2017 18:51:00 07/26/2017 21:39:00 DIS Emergency PAT GOETZ MD [facility] ER AFIB [id number] 06/23/2017 15:53:00 06/23/2017 23:59:59 CLS Outpatient EMMANUELLE CLAY [employer] [facility] RAD POLYPS [id number] 06/10/2017 09:16:00 06/10/2017 23:59:59 CLS Preadmit DEGRAFFENRBRITTNEY PITTS L [facility] RAD SCREENING [id number] 03/09/2017 10:15:00 03/09/2017 23:59:59 CLS Outpatient DEGRAFFEBRITTNEY CRENSHAW [facility] RAD E01.0 ENLARGED THY [id number] 01/13/2017 11:59:00 01/13/2017 23:59:59 CLS Outpatient PAMELA LAROSE FACC, PHOENIX RAMIREZ CCDS [facility] RAD I48.0,M79.89, I73.9 [id number] 01/07/2017 15:07:00 01/07/2017 23:59:59 CLS Outpatient DEGRAFFEBRITTNEY CRENSHAW [facility] RAD COUGH [id number] 09/23/2016 14:00:00 09/23/2016 23:59:59 CLS Preadmit PAMELA LAROSE FACC, PHOENIX RAMIREZ CCDS [facility] RAD LEFT LEG CLAUDICATION [id number] 07/30/2016 09:02:00 07/30/2016 23:59:59 CLS Outpatient BILL BARTHOLOMEW DO [facility] LAB HYPERTHYROID [id number] 05/15/2016 12:21:00 05/15/2016 23:59:59 CLS Outpatient BILL BARTHOLOMEW DO [facility] LAB THYROID STIMULATING HORMONE ABNORMAL [id number] 03/13/2016 10:09:00 03/13/2016 23:59:59 CLS Outpatient BILL BARTHOLOMEW DO [facility] LAB ABNORMAL THYROID STIMULATNG HORMONE [id number] 03/07/2016 10:24:00 03/07/2016 23:59:59 CLS Outpatient SVETA COOKP [facility] LAB PAF,HTN,COPD [id number] 02/27/2016 12:13:00 02/29/2016 13:12:00 DIS Inpatient PAMELA LAROSE FACC, PHOENIX RAMIREZ CCDS [facility] ICU A FIB WITH RVR HYPERTHYROIDISM [id number] 02/13/2016 13:57:00 02/13/2016 23:59:59 CLS Outpatient SVETA COOK [place] [employer] RN [facility] CARD AFIB [id number] 02/13/2016 12:12:00 02/13/2016 23:59:59 CLS Outpatient HUEY ANDREA GASKET INSPECTOR [facility] RAD HYPERTHYROIDISM [id number] 01/24/2016 14:03:00 01/25/2016 15:05:00 DIS Inpatient BHUPINDER SHORT MD [facility] ICU A FIB/RVR [id number] 11/07/2015 09:43:00 11/07/2015 23:59:59 CLS Outpatient NILAM DOVER Kilo CFNP [facility] RAD ARTHRITIS OF BOTH HIPS [id number] 02/14/2015 09:29:00 02/14/2015 23:59:59 CLS Outpatient HUEY ANDREA GASKET INSPECTOR [facility] RAD [id number] 08/16/2013 13:25:00 08/16/2013 23:59:59 CLS Outpatient SANDER POLK GASKET INSPECTOR [facility] RAD TIA [id number] 05/30/2013 07:07:00 05/30/2013 23:59:59 CLS Outpatient SIDNEY-KRISTYN YAÑEZ [facility] RAD ESSENTIAL HTN ,SOB,CHEST PAIN [id number] 05/03/2013 10:06:00 05/03/2013 23:59:59 CLS Outpatient SIDNEY-KRISTYN YAÑEZ [facility] CARD ESSENTIAL HTN,SOB,CHEST PAIN [id number] 03/29/2013 08:05:00 03/29/2013 23:59:59 CLS Outpatient MAURILIO CAMERON GASKET INSPECTOR [facility] RAD PETE BREAST PAIN [id number] 01/13/2019 13:39:00 ACT Inpatient PAMELA LAROSE FACC, PHOENIX RAMIREZ CCDS [facility] ICU CHEST PAIN;HYPERTENSION;SYNCOPE [id number] 04/27/2018 15:53:00 Document Registration [id number] 02/08/2015 09:47:00 Document Registration [id number] 03/18/2012 11:22:00 Document Registration [id number] 01/21/2012 10:51:00 Document Registration [id number] 08/21/2011 09:12:00 Document Registration [id number] 05/15/2011 08:30:00 Document Registration [id number] 03/15/2011 19:14:00 Document Registration [id number] 03/14/2011 13:50:00 Document Registration [id number] 01/14/2011 09:03:00 Document Registration
[2019-01-13 17:00] VITALS: BP 128/104
[2019-01-13] MEDS: ANTACID SUSP 30 ML UDC (MYLANTA) PO SCH ×2 (17:39→20:12)
[2019-01-13 20:00] VITALS: BP 122/73
[2019-01-13] MEDS: APIXABAN 5 MG (ELIQUIS) TABLET PO SCH (20:12)
[2019-01-13] MEDS ORDERED: DILTIAZEM 180 MG (CARDIZEM CD) CAP PO SCH (21:00)
[2019-01-13] MEDS ORDERED: NON-FORMULARY MEDICATION 1 EA EA (Diltiazem HCl (Diltiazem 24Hr ER) 180 MG) PO SCH (21:00)
[2019-01-13] MEDS ORDERED: CATHETER FLUSH 10 ML SYR IV SCH ×2 (22:00)
[2019-01-14] VITALS: BP 125/87
[2019-01-14 03:50] LABS: HEMOGLOBIN 14.7 G/DL (11.5-16.0); MEAN PLATELET VOLUME 11.4 FL (7.4-10.4); RED CELL DISTRIBUTION WIDTH 15.1 % (10.0-14.5); WHITE BLOOD COUNT 10.5 10^3/uL (4.3-11.0)
[2019-01-14 04:00] VITALS: BP 120/64
[2019-01-14 04:07] LABS: ALANINE AMINOTRANSFERASE 24 U/L (0-55); ALBUMIN 3.7 GM/DL (3.2-4.5); ALKALINE PHOSPHATASE 78 U/L (40-136); BILIRUBIN,TOTAL 0.6 MG/DL (0.1-1.0); BUN/CREATININE RATIO 19; CALCIUM 8.9 MG/DL (8.5-10.1); CARBON DIOXIDE 26 MMOL/L (21-32); CHLORIDE 102 MMOL/L (98-107); CHOLESTEROL 188 MG/DL (< 200); CREATININE SERUM 0.74 MG/DL (0.60-1.30); GFR ESTIMATED > 60; GLUCOSE 107 MG/DL (70-105); HDL CHOLESTEROL 36 MG/DL (40-60); MAGNESIUM 2.3 MG/DL (1.8-2.4); POTASSIUM 3.9 MMOL/L (3.6-5.0); SODIUM 139 MMOL/L (135-145); TOTAL PROTEIN 6.5 GM/DL (6.4-8.2); TRIGLYCERIDES 135 MG/DL (<150); VLDL CHOLESTEROL 27 MG/DL (5-40)
[2019-01-14] MEDS: ANTACID SUSP 30 ML UDC (MYLANTA) PO SCH (07:39)
[2019-01-14 08:00] VITALS: BP 121/75
[2019-01-14] MEDS: APIXABAN 5 MG (ELIQUIS) TABLET PO SCH (08:18)
[2019-01-14] MEDS ORDERED: AMLO5TAB9 PO (08:46)
[2019-01-14] MEDS ORDERED: PANT40TA2 PO (08:46)
[2019-01-14] MEDS ORDERED: amLODIPine 5 MG (NORVASC) TAB PO SCH (09:00)
[2019-01-14] MEDS ORDERED: PANTOPRAZOLE 40 MG (PROTONIX) TAB PO SCH (09:00)
[2019-01-14] MEDS ORDERED: ASPIRIN E.C. 81 MG (ECOTRIN) TAB PO SCH (09:00)
--- NOTE | 2019-01-14 09:32 | Progress Note-Cardiology ---
Cardiology SOAP Progress Note Subjective: No cp or palp or syncope or shortness of breath. States "feels great." Wishes to go home Objective: I&O/Vital Signs 01/14/19 01/14/19 01/14/19 01/14/19 00:00 00:07 01:00 04:00 Temp 97.6 97.1 Pulse 56 55 56 48 Resp 18 14 B/P (MAP) 125/87 (100) 120/64 (82) Pulse Ox 97 98 O2 Delivery Room Air Room Air 01/14/19 01/14/19 01/14/19 07:00 08:00 08:04 Temp 97.8 Pulse 52 66 Resp 16 B/P (MAP) 121/75 (90) Pulse Ox 98 O2 Delivery Room Air Room Air 01/13/19 23:59 Intake Total 240 ml Balance 240 ml Weight (Pounds): 177 Weight (Ounces): 0.0 Weight (Calculated Kilograms): 80.833412 Constitutional: AAO x 3, well-developed, well-nourished Respiratory: No accessory muscle use, No respiratory distress; chest expansion is symmetric, chest is bilaterally symmetric, lungs clear to auscultation Cardiovascular: regular rate-rhythm; No JVD; bradycardia, S1 and S2 Gastrointestional: No tender; soft, round, audible bowel sounds Extremities: no lower extremity edema bilateral Neurologic/Psychiatric: grossly intact, power is 5/5 both on sides Skin: No rash, No ulcerations Results/Procedures: Labs Laboratory Tests 01/13/19 10:15: White Blood Count 11.3H, Red Blood Count 5.12, Hemoglobin 14.2, Hematocrit 44, Mean Corpuscular Volume 86, Mean Corpuscular Hemoglobin 28, Mean Corpuscular Hemoglobin Concent 32, Red Cell Distribution Width 15.4H, Platelet Count 235, Mean Platelet Volume 10.9H, Neutrophils (%) (Auto) 72, Lymphocytes (%) (Auto) 18 , Monocytes (%) (Auto) 7, Eosinophils (%) (Auto) 3, Basophils (%) (Auto) 0, Neutrophils # (Auto) 8.1H, Lymphocytes # (Auto) 2.0, Monocytes # (Auto) 0.8, Eosinophils # (Auto) 0.3, Basophils # (Auto) 0.0, Prothrombin Time 13.3, INR Comment 1.0, Activated Partial Thromboplast Time 40H, Sodium Level 139, Potassium Level 4.1, Chloride Level 101, Carbon Dioxide Level 30, Anion Gap 8, Blood Urea Nitrogen 13, Creatinine 0.76, Estimat Glomerular Filtration Rate > 60 , BUN/Creatinine Ratio 17, Glucose Level 93, Calcium Level 9.4, Corrected Calcium 9.4, Magnesium Level 2.4, Total Bilirubin 1.0, Aspartate Amino Transf ( AST/SGOT) 20, Alanine Aminotransferase (ALT/SGPT) 26, Alkaline Phosphatase 84, Myoglobin 34.5, Troponin I < 0.028, Total Protein 6.8, Albumin 4.0, Thyroid Stimulating Hormone (TSH) 3.37, Free Thyroxine 1.18 01/13/19 19:55: Troponin I < 0.028 01/14/19 03:19: White Blood Count 10.5, Red Blood Count 5.21, Hemoglobin 14.7, Hematocrit 44, Mean Corpuscular Volume 85, Mean Corpuscular Hemoglobin 28, Mean Corpuscular Hemoglobin Concent 33, Red Cell Distribution Width 15.1H, Platelet Count 233, Mean Platelet Volume 11.4H, Sodium Level 139, Potassium Level 3.9, Chloride Level 102, Carbon Dioxide Level 26, Anion Gap 11, Blood Urea Nitrogen 14, Creatinine 0.74, Estimat Glomerular Filtration Rate > 60, BUN/Creatinine Ratio 19, Glucose Level 107H, Calcium Level 8.9, Corrected Calcium 9.1, Magnesium Level 2.3, Total Bilirubin 0.6, Aspartate Amino Transf (AST/SGOT) 18, Alanine Aminotransferase (ALT/SGPT) 24, Alkaline Phosphatase 78, Total Protein 6.5, Albumin 3.7, Triglycerides Level 135, Cholesterol Level 188, LDL Cholesterol Direct 131H, VLDL Cholesterol 27, HDL Cholesterol 36L Laboratory Tests 01/13/19 10:15 01/14/19 03:19 A/P: Assessment: Chest pain of undetermined etiology - no evidence of ACS H/O PAF - currently SR - SB H/o TIAs, 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 Trivial TR. PASP estimated to be approx 35mmHg. No evidence of any significant valvular stenosis MPI of 03-09-2018 showed no ischemia or infarction. LVEF 63% Chronic OAC with Eliquis H/o hypertension H/o breast implants and tummy tuck surgery S/P thyroidectomy in 2018 which is being managed by endocrinology and her PCP - TSH 3.37 (WNL) today COPD for which she is establishing care with Dr. Brown (previously had seen pulmonology services at ) H/o bilat carpal tunnel syndrome Bilat leg discomfort suggestive, no evidence of significant obstructive PAD on seg pressures of December 2016 Plan: Outpt f/u BB d/c'd because of sinus samantha Continue Cardizem CD 180mg daily Continue OAC with Eliquis Initiate PPI Risk factor mod reviewed. Questions answered Clinical Quality Measures AMI/AHF: ASA po Prior to arrival: PHOENIX Mitchell MD FACP FACC CCDS Jan 14, 2019 09:32
== END 2019-01-14 08:42 | disposition home or self-care (01) ==
LOC: EDUNIT# 09:41 → ER 09:43 → ICU 13:39 → UNDOADMOB 13:39 → ICU 14:00 → UNDODISOB 01-14 09:38
PROVIDERS: ADMIT Internal Medicine Cardiovascular Disease; ATTEND Internal Medicine Cardiovascular Disease
DX: R07.9 Chest pain, unspecified (principal); I48.0 Paroxysmal atrial fibrillation; Z86.73 Personal history of transient ischemic attack (TIA), and cerebral infarction without residual deficits; Z79.01 Long term (current) use of anticoagulants; I10 Essential (primary) hypertension; J44.9 Chronic obstructive pulmonary disease, unspecified; Z98.82 Breast implant status; M79.604 Pain in right leg; M79.605 Pain in left leg; E89.0 Postprocedural hypothyroidism; E05.90 Thyrotoxicosis, unspecified without thyrotoxic crisis or storm; I25.2 Old myocardial infarction; M19.91 Primary osteoarthritis, unspecified site; R55 Syncope and collapse; Z79.899 Other long term (current) drug therapy; Z88.0 Allergy status to penicillin; Z88.2 Allergy status to sulfonamides
CPT/HCPCS: 36415; 71046; 71275; 80053; 80061; 83735; 83874; 84439; 84443; 84484; 85025; 85027; 85610; 85730; 93005; 93041; 93306

== ENCOUNTER → 2020-04-20 | Outpatient (CLI) | payer OTHER ==
[~2020-04-20] MED LIST changes: +AMLO5TAB9 PO; +BECL10.62 IH; +CETI10TA17 PO; +DILT180C85 PO; +FLUO20CA46 PO; +FLUT16SP22 NS; +IPRA3AMP31 NEB; +LEVO125T6 PO; +METF-397 PO; -METO-370 PO; +METO50TA7 PO; +MONT10TA26 PO; +MTP100TCR PO; +PANT40TA2 PO
[2020-04-20 12:35] LABS: BASOPHILS # (AUTO) 0.1 10^3/uL (0.0-0.1); BASOPHILS % (AUTO) 1 % (0-10); EOSINOPHILS # (AUTO) 0.8 10^3/uL (0.0-0.3); EOSINOPHILS % (AUTO) 8 % (0-10); HEMATOCRIT 44 % (35-52); HEMOGLOBIN 14.7 G/DL (11.5-16.0); LYMPHOCYTES # (AUTO) 2.1 X 10^3 (1.0-4.0); LYMPHOCYTES % (AUTO) 21 % (12-44); MEAN CORPUSCULAR HEMOGLOBIN 28 PG (25-34); MEAN CORPUSCULAR HGB CONC 33 G/DL (32-36); MEAN CORPUSCULAR VOLUME 84 FL (80-99); MEAN PLATELET VOLUME 11.4 FL (7.4-10.4); MONOCYTES # (AUTO) 0.7 X 10^3 (0.0-1.0); MONOCYTES % (AUTO) 7 % (0-12); NEUTROPHILS # (AUTO) 6.6 X 10^3 (1.8-7.8); NEUTROPHILS % (AUTO) 65 % (42-75); PLATELET COUNT 236 10^3/uL (130-400); WHITE BLOOD COUNT 10.2 10^3/uL (4.3-11.0)
== END ==
LOC: LAB 12:02
PROVIDERS: ATTEND Internal Medicine Critical Care Medicine
DX: J45.50 Severe persistent asthma, uncomplicated (principal)
CPT/HCPCS: 36415; 82785; 85025

== ENCOUNTER → 2021-01-17 | Outpatient (CLI) | payer OTHER ==
[~2021-01-17] MED LIST changes: +AMLO-250 PO; -AMLO5TAB9 PO; -MONT10TA26 PO; +MONT10TA32 PO
== END ==
LOC: CARD 11:13
PROVIDERS: ATTEND Internal Medicine
DX: I48.0 Paroxysmal atrial fibrillation (principal); E66.09 Other obesity due to excess calories; G47.33 Obstructive sleep apnea (adult) (pediatric); I10 Essential (primary) hypertension; G45.9 Transient cerebral ischemic attack, unspecified; Z79.01 Long term (current) use of anticoagulants; R73.03 Prediabetes
CPT/HCPCS: 93005

== ENCOUNTER → 2022-09-30 | Outpatient (CLI) | payer OTHER ==
[~2022-09-30] MED LIST changes: +ALBU8.5H6 IH; -FLUO20CA46 PO; +FLUO20CA48 PO; -METH5TAB5 PO; +METH5TAB95 PO; +MONT-40 PO; -MONT10TA32 PO; -RT-ALBUINH IH
--- NOTE | 2022-09-30 15:12 | Diagnostic Imaging Report ---
US LEFT LOWER EXT [id number] INDICATION: Mass in the lower leg. COMPARISON: None available. TECHNIQUE: Targeted ultrasound imaging of the left hip mass was performed. FINDINGS: The site of palpable concern along the lateral aspect of the left hip was imaged. At this region, there is an ovoid rim calcified shadowing structure measuring approximately 1.5 x 1.9 x 0.8 cm. This is located in the subcutaneous fat. IMPRESSION: Probable abnormality corresponds to rim calcified mass in the subcutaneous fat. This most likely represents either an area of fat necrosis or injection granuloma. Radiograph of the left hip could be performed with marker placed on the palpable abnormality. Dictated by: Dictated on workstation # [id number]
== END ==
LOC: RAD 09:55
DX: R22.42 Localized swelling, mass and lump, left lower limb (principal)
CPT/HCPCS: 76881